=== PATIENT | male | born 1935 | race Caucasian/White ===

== ENCOUNTER 2018-01-16 03:40 | Inpatient (IN) ==
[2018-01-16] MEDS ORDERED: Morphine Inj 4 MG/ML Vial IV.PUSH ONE (04:21)
--- NOTE | 2018-01-16 04:29 | ED ---
HPI General Chief complaint: Nausea/Vomiting/Diarrhea Stated complaint: N/V Time Seen by Provider: 01/16/18 03:49 Source: patient Mode of arrival: ambulatory Limitations: no limitations History of Present Illness HPI narrative: Patient is an 82 year old male who comes in complaining of "not feeling well." He says he has abdominal pain, pain between his shoulder blades , nausea, and vomiting. He says this started earlier in the day. He denies fever or chills. He says he feels weak all over. He denies chest pain, but does report some shortness of breath. Severity is moderate. Related Data Home Medications Medication Instructions Recorded Confirmed albuterol sulfate 2.5 mg INHALATION QID PRN 08/21/17 01/16/18 carvedilol 6.25 mg PO BID 08/21/17 01/16/18 escitalopram oxalate 10 mg PO DAILY 08/21/17 01/16/18 gabapentin 300 mg PO BID 08/21/17 01/16/18 naproxen 500 mg PO BID PRN 08/21/17 01/16/18 potassium chloride 10 meq PO DAILY 08/21/17 01/16/18 tamsulosin 0.4 mg PO HS 08/21/17 01/16/18 furosemide 20 mg PO DAILY 08/25/17 01/16/18 atorvastatin 10 mg PO DAILY 01/02/18 01/16/18 isosorbide mononitrate 30 mg PO DAILY 01/02/18 01/16/18 Oxygen 2 l INHALATION HS 01/05/18 01/16/18 amlodipine 10 mg PO DAILY 01/05/18 01/16/18 clonidine-chlorthalidone 1 tab PO BID 01/05/18 01/16/18 Allergies Allergy/AdvReac Type Severity Reaction Status Date / Time No Known Allergies Allergy Verified 01/02/18 12:33 Review of Systems ROS: all other systems reviewed are negative Constitutional Denies chills and Denies fever(s) ENT Denies dizziness Cardiovascular Denies chest pain and Denies dyspnea Respiratory Denies cough and Reports dyspnea Gastrointestinal Reports abdominal pain, Reports nausea and Reports vomiting Musculoskeletal Denies myalgias and Denies arthralgias Integumentary/Breasts Denies sores and Denies wounds Neurologic Reports weakness PMFSH Medical History Medical History Bladder cancer (Acute) COPD (chronic obstructive pulmonary disease) (Acute) 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) CPAP (continuous positive airway pressure) dependence (Acute) Dehydration (Acute) Enlarged prostate (Acute) History of cardiac pacemaker in situ (Acute) Hx of cardiac arrhythmia (Acute) Kidney stone on right side (Acute) Tingling of both feet (Acute) Surgical History Surgical History Hx of bilateral cataract extraction (Acute) Hx of cervical spine surgery (Acute) Social History Social History Substance History: No History of Abuse Second Hand Smoke Exposure: No Smoking Status: Former smoker Tobacco Type: Cigarettes How Often Do You Have a Drink Containing Alcohol: Never Recent Travel in [facility] within the Last 8 Weeks: No Recent Out of Country Travel within the Last 8 Weeks: No Immunization History Tetanus Immunization: Unsure Exam Narrative Exam Narrative: GENERAL: Awake and alert, in no acute distress. SKIN: Focused skin assessment warm/dry. No wounds or signs of infection. HEAD: Atraumatic. Normocephalic. EYES: Pupils equal and round. No scleral icterus. No injection or drainage. ENT: Mucous membranes pink and moist. NECK: Trachea midline. No JVD. CARDIOVASCULAR: Regular rate and rhythm. No murmur appreciated. RESPIRATORY: No accessory muscle use. Crackles to the left lung. Breath sounds equal bilaterally. GASTROINTESTINAL: Abdomen soft, nondistended. Tender to palpation across the lower abdomen. No rebound or guarding. MUSCULOSKELETAL: No obvious deformities. No clubbing. No cyanosis. No edema. NEUROLOGICAL: Awake and alert. No obvious cranial nerve deficits. Motor grossly within normal limits. Normal speech. PSYCHIATRIC: Appropriate mood and affect; insight and judgment normal. Course Initial Documented Vital Signs Pulse Rate 72 01/16/18 03:42 Respiratory Rate 20 01/16/18 03:42 Blood Pressure 207/83 H 01/16/18 03:42 Pulse Oximetry 93 L 01/16/18 03:42 Last Documented Vital Signs Temperature 97.7 F 01/16/18 03:47 Pulse Rate 67 01/16/18 04:56 Respiratory Rate 18 01/16/18 04:56 Blood Pressure 112/53 L 01/16/18 04:56 Pulse Oximetry 94 L 01/16/18 04:56 Medical Decision Making MDM Narrative Medical decision making narrative: Patient is an 82 year old male who comes in complaining of generalized weakness with pain between his shoulder blades and to his lower abdomen. Per family he had his jenkins catheter removed earlier in the morning and he "hasn't been doing well" since then. Patient is a poor historian. Exam shows lower abdominal tenderness. IV established, labs sent. Labs concerning for slight elevation in Troponin to 0.09. WBC count is 14. Cr is 1.7. Lactic acid is 2.2. Patient given IVF. Given morphine and Zofran. UA is still pending, however, based on history, there is concern for UTI. Given Rocephin. Given Aspirin. Patient will require admission. Medical Screen Exam Complete: Yes Emergency Medical Condition: Yes Differential Diagnosis Differential Diagnosis: UTI vs sepsis vs dehydration vs electrolyte abnormalities Medical Records Medical records reviewed: Yes I reviewed the patient's medical records. Lab Data Lab results reviewed: Yes I reviewed the patient's lab results. Result diagrams: 01/16/18 04:29 01/16/18 04:29 Lab Results 01/16/18 01/16/18 01/16/18 Range/Units 04:29 04:29 04:29 WBC 14.0 H (4.0-11.0) th/mm3 RBC 4.84 (4.50-5.90) mil/mm3 Hgb 14.5 (13.0-17.0) gm/dL Hct 42.1 (39.0-51.0) % MCV 86.9 (80.0-100.0) fL MCH 29.9 (27.0-34.0) pg MCHC 34.4 (32.0-36.0) % RDW 14.1 (11.6-17.2) % Plt Count 149 L (150-450) th/mm3 MPV 8.7 (7.0-11.0) fL Prelim Diff (Auto) Manual diff required WBC Differential Manual diff final Seg Neuts % (Manual) 79 H (16-70) % Band Neuts % (Manual) 13 H (0-6) % Lymphocytes % (Manual) 1 L (9-44) % Monocytes % (Manual) 5 (0-8) % Metamyelocytes % (Man) 2 H (0-1) % Abs Neuts (Manual) 13.2 H (1.8-7.7) th/mm3 Differential Comment . Toxic Vacuolation Present H (None) Platelet Estimate Low L (Normal) Platelet Morphology Normal (Normal) RBC Morphology Normal (Normal) PT 10.8 (9.8-11.6) sec INR 1.1 Ratio APTT 30.3 (23.4-31.7) sec Sodium 140 (136-145) meq/L Potassium 3.7 (3.5-5.1) meq/L Chloride 107 (98-107) meq/L Carbon Dioxide 25.2 (21.0-32.0) meq/L Anion Gap 8 (5-15) meq/L BUN 30 H (7-18) mg/dL Creatinine 1.78 H (0.60-1.30) mg/dL Estimated GFR 37 L (>89) mL/min Random Glucose 123 H (74-106) mg/dL Lactic Acid (0.4-2.0) mmol/L Calcium 8.6 (8.5-10.1) mg/dL Magnesium 1.6 (1.5-2.5) mg/dL Total Bilirubin 1.1 H (0.2-1.0) mg/dL AST 22 (15-37) U/L ALT 21 (12-78) U/L Alkaline Phosphatase 89 (45-117) U/L Troponin I 0.09 H (0.02-0.05) ng/mL Total Protein 7.4 (6.4-8.2) g/dL Albumin 3.3 L (3.4-5.0) g/dL Lipase 56 L (73-393) U/L 01/16/18 Range/Units 04:29 WBC (4.0-11.0) th/mm3 RBC (4.50-5.90) mil/mm3 Hgb (13.0-17.0) gm/dL Hct (39.0-51.0) % MCV (80.0-100.0) fL MCH (27.0-34.0) pg MCHC (32.0-36.0) % RDW (11.6-17.2) % Plt Count (150-450) th/mm3 MPV (7.0-11.0) fL Prelim Diff (Auto) WBC Differential Seg Neuts % (Manual) (16-70) % Band Neuts % (Manual) (0-6) % Lymphocytes % (Manual) (9-44) % Monocytes % (Manual) (0-8) % Metamyelocytes % (Man) (0-1) % Abs Neuts (Manual) (1.8-7.7) th/mm3 Differential Comment Toxic Vacuolation (None) Platelet Estimate (Normal) Platelet Morphology (Normal) RBC Morphology (Normal) PT (9.8-11.6) sec INR Ratio APTT (23.4-31.7) sec Sodium (136-145) meq/L Potassium (3.5-5.1) meq/L Chloride (98-107) meq/L Carbon Dioxide (21.0-32.0) meq/L Anion Gap (5-15) meq/L BUN (7-18) mg/dL Creatinine (0.60-1.30) mg/dL Estimated GFR (>89) mL/min Random Glucose (74-106) mg/dL Lactic Acid 2.2 H (0.4-2.0) mmol/L Calcium (8.5-10.1) mg/dL Magnesium (1.5-2.5) mg/dL Total Bilirubin (0.2-1.0) mg/dL AST (15-37) U/L ALT (12-78) U/L Alkaline Phosphatase (45-117) U/L Troponin I (0.02-0.05) ng/mL Total Protein (6.4-8.2) g/dL Albumin (3.4-5.0) g/dL Lipase (73-393) U/L Imaging Data Radiologist's impression: Abdomen/Pelvis CT 01/16/18 04:21 CONCLUSION: 1. Bilateral ureteral stents are in place and there is mild distention of the collecting systems bilaterally. Both kidneys enhance heterogeneously. 2. 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 Chest X-Ray 01/16/18 04:21 CONCLUSION: Stable mildly enlarged cardiac silhouette. No acute abnormality is identified. ECG Data EKG Prior to Arrival: No Attestation: I personally reviewed and interpreted this ECG as follows: Interpretation: ECG shows NSR at a rate of 70, no ST elevation or depression, normal intervals Discharge Plan Discharge Disposition Patient Disposition: 30 Still Patient Discharge Condition Condition: Stable Discharge Details Diagnosis: Dehydration, Acute UTI, Elevated troponin Physicians Team ED Provider: Ghada Corral Primary Care Provider: Pop Escobar Rxs /Orders / Referrals /Forms Prescriptions: No Action atorvastatin 10 mg Tablet 10 mg PO DAILY RF: 0 isosorbide mononitrate 30 mg Tablet Extended Release 24 Hr 30 mg PO DAILY RF: 0 amlodipine 10 mg Tablet 10 mg PO DAILY RF: 0 clonidine-chlorthalidone 0.1-15 mg Tablet 1 tab PO BID RF: 0 Oxygen 2 l Inhalation HS RF: 0 potassium chloride 10 mEq Capsule, Extended Release 10 meq PO DAILY RF: 0 carvedilol 6.25 mg Tablet 6.25 mg PO BID RF: 0 tamsulosin 0.4 mg Capsule,Extended Release 24hr 0.4 mg PO HS RF: 0 gabapentin 300 mg Capsule 300 mg PO BID RF: 0 naproxen 500 mg Tablet 500 mg PO BID PRN (Reason: Pain) RF: 0 escitalopram oxalate 10 mg Tablet 10 mg PO DAILY RF: 0 albuterol sulfate 5 mg/mL Solution For Nebulization 2.5 mg INHALATION QID PRN (Reason: Shortness Of Breath) RF: 0 furosemide 20 mg Tablet 20 mg PO DAILY RF: 0 Discharge Interventions Interventions: Vital Signs Last Done: 01/16/18 04:56 Status ED Status: With Doctor
[2018-01-16 04:39] LABS: Hematocrit 42.1 % (39.0-51.0); Hemoglobin 14.5 gm/dL (13.0-17.0); Mean Corpuscular HGB Conc 34.4 % (32.0-36.0); Mean Corpuscular Hemoglobin 29.9 pg (27.0-34.0); Mean Corpuscular Volume 86.9 fL (80.0-100.0); Mean Platelet Volume 8.7 fL (7.0-11.0); Platelet Count 149 th/mm3 (150-450); Red Blood Count 4.84 mil/mm3 (4.50-5.90); Red Cell Distribution Width 14.1 % (11.6-17.2)
[2018-01-16 04:51] LABS: Activated Partial Thrombo Time 30.3 sec (23.4-31.7); INR 1.1 Ratio; Prothrombin Time 10.8 sec (9.8-11.6)
--- NOTE | 2018-01-16 05:01 | XR ---
EXAM DATE: 01/16/2018 4:39 AM EST AGE/SEX: 82 years / Male INDICATIONS: Cough. CLINICAL DATA: This is the patient's initial encounter. Patient reports that signs and symptoms have been present for 1 day and indicates a pain score of 0/10. MEDICAL/SURGICAL HISTORY: Chronic obstructive pulmonary disease. Emphysema. Hypertension. Cho lecystectomy. Pacemaker. Cervical fusion. COMPARISON: [facility], CHEST PA & LAT, 12/30/2012. . FINDINGS: Portable AP view of the chest demonstrates stable mild enlargement of the cardiac silhouette. Left ch est wall cardiac pacing device is present. EKG lines overlie the patient. Lungs are underinflated wit h mild atelectasis at the lung bases. No pleural effusion, airspace consolidation, or pneumothorax is identified. The bones and soft tissues demonstrate no acute finding. Cervical spine hardware is pres ent. CONCLUSION: Stable mildly enlarged cardiac silhouette. No acute abnormality is identified. Electronically signed by: Rony White MD 01/16/2018 4:59 AM EST
[2018-01-16 05:03] LABS: Albumin 3.3 g/dL (3.4-5.0); Anion Gap 8 meq/L (5-15); Aspartate Aminotransferase 22 U/L (15-37); Blood Urea Nitrogen 30 mg/dL (7-18); Calcium 8.6 mg/dL (8.5-10.1); Carbon Dioxide 25.2 meq/L (21.0-32.0); Chloride 107 meq/L (98-107); Glomerular Filtration Rate 37 mL/min (>89); Glucose,Random 123 mg/dL (74-106); Lipase 56 U/L (73-393); Magnesium 1.6 mg/dL (1.5-2.5); Potassium 3.7 meq/L (3.5-5.1); Sodium 140 meq/L (136-145)
[2018-01-16 05:04] LABS: Alanine Aminotransferase 21 U/L (12-78)
[2018-01-16 05:08] LABS: Alkaline Phosphatase 89 U/L (45-117); Total Protein 7.4 g/dL (6.4-8.2); Troponin I 0.09 ng/mL (0.02-0.05)
[2018-01-16 05:22] LABS: Lymphocytes 1 % (9-44); Metamyelocytes 2 % (0-1); Monocytes 5 % (0-8)
[2018-01-16 05:24] LABS: Platelet Morphology Normal (Normal); Toxic Vacuolation Present
[2018-01-16 05:25] LABS: RBC Morphology Normal (Normal)
[2018-01-16] MEDS ORDERED: Sodium Chlor 0.9% Inj 500 ML IV.SIG SCH (06:00)
--- NOTE | 2018-01-16 06:09 | CT ---
EXAM DATE: 01/16/2018 5:39 AM EST AGE/SEX: 82 years / Male INDICATIONS: Abdominal pain, nausea, and vomiting. CLINICAL DATA: This is the patient's initial encounter. Patient reports that signs and symptoms have been present for 1 day and indicates a pain score of 7/10. MEDICAL/SURGICAL HISTORY: Carcinoma, breast. Chronic obstructive pulmonary disease. Renal lisa culi. Pacemaker. ORAL CONTRAST: No oral contrast ingested. RADIATION DOSE: 9.36 CTDI (mGy) COMPARISON: No prior exams available for comparison. TECHNIQUE: Multiple contiguous axial images were obtained through the abdomen and pelvis following b olus infusion of 45 ml Visipaque 320 (iodixanol) nonionic water-soluble contrast as a single exam d ose. No oral contrast ingested. Using automated exposure control and adjustment of the mA and/or kV according to patient size, radiation dose was kept as low as reasonably achievable to obtain optimal diagnostic quality images. DICOM format image data is available electronically for review and compar jacinta. FINDINGS: Lower chest: There are subpleural interstitial changes at both lung bases. Cardiac pacing wires are p resent within the heart. Hepatobiliary: No focal liver lesion is identified. Hepatic vasculature demonstrates no abnormality. No calcified gallstones are present. Kidneys: The kidneys enhance heterogeneously. In the right mid kidney there is a 3.3 cm low-density l esion with density measurements consistent with a cyst. There is fullness of the collecting systems b ilaterally and distended extrarenal pelves. There are bilateral ureteral stents extending from the ex trarenal pelvis to the urinary bladder bilaterally. No renal stones are identified. Adrenal Glands: Within normal limits. Spleen: Within normal limits. Pancreas: Within normal limits. Vascular: There is severe atherosclerotic disease with infrarenal fusiform bilobed aneurysm measuring approximately 4.8 x 4.2 cm. Bowel/Mesentery: The stomach and small bowel demonstrate no abnormality. No acute colon abnormality i s seen. There is no free intraperitoneal air or fluid. There is sigmoid diverticulosis. Abdominal Wall: No hernia is visualized. Retroperitoneum: No lymphadenopathy. Bladder: No wall thickening or mass. Reproductive: Within normal limits. Inguinal: No lymphadenopathy or hernia. Musculoskeletal: No acute osseous abnormality is identified. There are degenerative changes of the rosemary mbar spine. CONCLUSION: 1. Bilateral ureteral stents are in place and there is mild distention of the collecting systems wendi aterally. Both kidneys enhance heterogeneously. 2. 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 2 cm. Electronically signed by: Rony White MD 01/16/2018 6:08 AM EST
[2018-01-16 06:50] LABS: Amorphous Sediment,Urine Rare /hpf; Bacteria,Urine Many /hpf; Bilirubin,Urine Negative (Negative); Clarity,Urine Cloudy (Clear); Color,Urine Amber (Yellw/Straw); Glucose,Urine (UA) Negative (Negative); Hyaline Casts,Urine 12 /lpf (0-3); Leukocyte Esterase,Urine Large (Negative); Mucus,Urine Few /lpf (Occasional); Nitrite,Urine Negative (Negative); Specific Gravity,Urine 1.021 (1.002-1.035)
[2018-01-16] MEDS ORDERED: Bisacodyl 10 MG Supp RECTAL PRN (08:02)
--- NOTE | 2018-01-16 08:25 | P.HPIM ---
History of Present Illness Primary Care Physician: Pop Escboar MD History of Present Illness: Mr. Cheung is a pleasant 82 y/o male with bladder cancer who recently underwent meatal dilation/bilateral retrograde pyelograms/bladder biopsy with fulguration/bilateral ureteroscopy with laser ablation of distal ureteral masses/right ureteroscopic stone extraction and bilateral ureteral stent placement with Dr. Feliciano on 01/05/18. Pts reports that he had his Talbot catheter removed at Dr. Feliciano's office yesterday. She states that the pt has not been eating or drinking well over the last few weeks and has been somewhat weaker than normal. Then yesterday after the Talbot was removed the pt had difficulty urinating and last night started becoming more nauseated and started vomiting during the night last night. Pt denies any fevers or chills. He appears uncomfortable in the bed and reports some mid to lower abdominal pain. He states that he needs to pee but only small amount of urine has been coming out since the catheter was removed. Denies any back pain. He states that he has not been having regular bowel movements more recently but felt that this was due to his appetite being poor and not eating as much as he used to. Denies any constipation or diarrhea. He denies any chest pain, SOB, palpitations, dizziness or weakness. His labs in the ED revealed a WBC count of 14, Cr 1.78, BUN 30, GFR 37. This seems to be worse than his baseline renal function when outpt labs were reviewed. 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 Past Medical Hx: AAA Thoracic aortic aneurysm Anxiety Bronchiectasis/Restrictive lung disease/COPD, chronically on 2L of supplemental O2 CHF Hyperlipidemia HTN Malignant neoplasm of the bladder JAVIER Osteoarthritis Hx of vertigo Hx of SSS s/p PPM Hx of skin cancer 2D echo (07/24/17): - LV mildly dilated - Mild concentric LVH - Estimated EF 45-50% - Abnormal left ventricular diastolic function is observed - LA is mildly dilated - Mild to moderate aortic regurg - Mild mitral regurg - Mild tricuspid regurg - RVSP is 42mmHg Past Surgical Hx: Multiple cystoscopies - Most recent, on 01/05/18, meatal dilation, bilateral retrograde pyelograms , bladder biopsy with fulguration, bilateral ureteroscopy with laser ablation of distal ureteral masses, right ureteroscopic stone extraction and bilateral ureteral stent placement with Dr. Feliciano. - Cystoscopy and transurethral resection of bladder tumors measuring 2 cm and 6 cm respectively on 08/25/[address] Feliciano. PATHOLOGY: NON-INVASIVE LOW GRADE PAPILLARY UROTHELIAL CARCINOMA Laminectomy PPM placement Colonoscopy Skin cancer removal Diagnosis (1) Acute UTI: (2) Elevated troponin: (3) Dehydration: (4) History of bladder cancer: (5) Meatal stenosis: Inpatient Certification Inpatient Certification: I certify that the inpatient services were ordered in accordance with Medicare regulations governing the order. This includes certification that hospital inpatient services are reasonable and necessary and in the case of services not specified as inpatient-only under 42 CFR 419.22(n), that they are appropriately provided as inpatient services in accordance to with the 2-midnight benchmark under 43 CFR 412.3(e) Estimated Total Length of Stay (Days): 3 Plans for Post Hospital Care: Not yet determined Medications and Allergies Allergies Allergy/AdvReac Type Severity Reaction Status Date / Time No Known Allergies Allergy Verified 01/02/18 12:33 Home Medications Medication Instructions Recorded Confirmed Type albuterol sulfate 2.5 mg INHALATION QID PRN 08/21/17 01/16/18 History carvedilol 6.25 mg PO BID 08/21/17 01/16/18 History escitalopram oxalate 10 mg PO DAILY 08/21/17 01/16/18 History gabapentin 300 mg PO BID 08/21/17 01/16/18 History naproxen 500 mg PO BID PRN 08/21/17 01/16/18 History potassium chloride 10 meq PO DAILY 08/21/17 01/16/18 History tamsulosin 0.4 mg PO HS 08/21/17 01/16/18 History furosemide 20 mg PO DAILY 08/25/17 01/16/18 History atorvastatin 10 mg PO DAILY 01/02/18 01/16/18 History isosorbide mononitrate 30 mg PO DAILY 01/02/18 01/16/18 History Oxygen 2 l INHALATION HS 01/05/18 01/16/18 History amlodipine 10 mg PO DAILY 01/05/18 01/16/18 History clonidine-chlorthalidone 1 tab PO BID 01/05/18 01/16/18 History Active Medications: Active Medications Acetaminophen (Tylenol) 650 mg PO Q4H PRN PRN Reason: Temp > 100.4 Al Hydroxide/Mg Hydroxide (Milk Of Magnesia Liq) 30 ml PO Q12H PRN PRN Reason: Mild Constipation Amlodipine Besylate (Norvasc) 10 mg PO DAILY [facility] Atorvastatin Calcium (Lipitor) 10 mg PO DAILY [facility]NA Bisacodyl (Dulcolax Supp) 10 mg RECTAL DAILY PRN PRN Reason: SEVERE CONSITIPATION Carvedilol (Coreg) 6.25 mg PO BID [facility] Escitalopram Oxalate (Lexapro) 10 mg PO DAILY [facility] Gabapentin (Neurontin) 300 mg PO BID [facility] Sodium Chloride (Ns Inj) 1,000 mls @ 100 mls/hr IV.CONT .Q10H [facility] Isosorbide Mononitrate (Imdur) 30 mg PO DAILY [facility] Lactulose (Lactulose Liq) 30 ml PO DAILY PRN PRN Reason: SEVERE CONSITIPATION Ondansetron HCl (Zofran Inj) 4 mg IV.PUSH Q6H PRN PRN Reason: NAUSEA OR VOMITING Senna/Docusate Sodium (Bel-Colace) 1 tab PO BID [facility] Sennosides (Senokot) 17.2 mg PO Q12H PRN PRN Reason: Moderate Constipation Sodium Chloride (Ns Flush) 2 ml IV.FLUSH PRN PRN PRN Reason: FLUSH AFTER USING IV ACCESS Sodium Chloride (Ns Flush) 2 ml IV.FLUSH BID BRIANNA Sodium Chloride (Ns Flush) 2 ml IV.FLUSH PRN PRN PRN Reason: FLUSH AFTER USING IV ACCESS Tamsulosin HCl (Flomax) 0.4 mg PO HS [facility] Physical Exam Vital signs: Last Vital Signs Temp 97.8 F 01/16/18 07:20 Pulse 64 01/16/18 07:20 Resp 17 01/16/18 07:38 BP 142/64 H 01/16/18 07:20 Pulse Ox 98 01/16/18 07:20 Narrative: GENERAL: male patient, AAOx3, appears to be uncomfortable SKIN: Warm and dry. HEENT: Atraumatic. Normocephalic. Pupils equal and round. No scleral icterus. No injection or drainage. No nasal bleeding or discharge. Mucous membranes pink and moist. NECK: Trachea midline. No JVD. CARDIO: Regular rate and rhythm. RESP: No accessory muscle use. Clear to auscultation. Breath sounds equal bilaterally. ABD: +BS, soft, non-tender, nondistended. Hepatic and splenic margins not palpable. EXT: Extremities without clubbing, cyanosis, or edema. No obvious deformities. NEURO: Awake and alert. No obvious cranial nerve deficits. Motor grossly within normal limits. Five out of 5 muscle strength in the arms and legs. Normal speech. PSYCH: Appropriate mood and affect; insight and judgment normal. Results Labs CBC & Chem 7: 01/31/18 08:14 02/01/18 05:13 Imaging Abdomen/Pelvis CT 01/16/18 04:21 CONCLUSION: 1. Bilateral ureteral stents are in place and there is mild distention of the collecting systems bilaterally. Both kidneys enhance heterogeneously. 2. 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 Chest X-Ray 01/16/18 04:21 CONCLUSION: Stable mildly enlarged cardiac silhouette. No acute abnormality is identified. Caprini VTE Risk Assessment Caprini VTE Risk Assessment: Moderate/High Risk (score >= 2) Caprini Risk Assessment Model: Point Value = 1 Point Value = 2 Point Value = 3 Point Value = 5 Age 41-60 Minor surgery BMI > 25 kg/m2 Swollen legs Varicose veins or History of unexplained or recurrent spontaneous Oral contraceptives or hormone replacement Sepsis (< 1 month) Serious lung disease, including pneumonia (< 1 month) Abnormal pulmonary function Acute myocardial infarction Congestive heart failure (< 1 month) History of inflammatory bowel disease Medical patient at bed rest Age 61-74 Arthroscopic surgery Major open surgery (> 45 min) Laparoscopic surgery (> 45 min) Malignancy Confined to bed (> 72 hours) Immobilizing plaster cast Central venous access Age >= 75 History of VTE Family history of VTE Factor V Leiden Prothrombin [id number] Lupus anticoagulant Anticardiolipin antibodies Elevated serum homocysteine Heparin-induced thrombocytopenia Other congenital or acquired thrombophilia Stroke (< 1 month) Elective arthroplasty Hip, pelvis, or leg fracture Acute spinal cord injury (< 1 month) Prophylaxis Regimen: Total Risk Factor Score Risk Level Prophylaxis Regimen 0-1 Low Early ambulation 2 Moderate Order ONE of the following: *Sequential Compression Device (SCD) *Heparin 5000 units SQ BID 3-4 Higher Order ONE of the following medications: *Heparin 5000 units SQ TID *Enoxaparin/Lovenox 40 mg SQ daily (WT < 150 kg, CrCl > 30 mL/min) *Enoxaparin/Lovenox 30 mg SQ daily (WT < 150 kg, CrCl > 10-29 mL/min) *Enoxaparin/Lovenox 30 mg SQ BID (WT < 150 kg, CrCl > 30 mL/min) AND/OR *Sequential Compression Device (SCD) 5 or more Highest Order ONE of the following medications: *Heparin 5000 units SQ TID (Preferred with Epidurals) *Enoxaparin/Lovenox 40 mg SQ daily (WT < 150 kg, CrCl > 30 mL/min) *Enoxaparin/Lovenox 30 mg SQ daily (WT < 150 kg, CrCl > 10-29 mL/min) *Enoxaparin/Lovenox 30 mg SQ BID (WT < 150 kg, CrCl > 30 mL/min) AND *Sequential Compression Device (SCD) Assessment and Plan Assessment (1) Acute UTI: Code(s): N39.0 - Urinary tract infection, site not specified Status: Acute (2) Elevated troponin: Code(s): R74.8 - Abnormal levels of other serum enzymes Status: Acute (3) Dehydration: Code(s): E86.0 - Dehydration Status: Acute (4) History of bladder cancer: Code(s): Z85.51 - Personal history of malignant neoplasm of bladder Status: Acute (5) Meatal stenosis: Status: Acute Plan UTI BECK on chronic kidney disease Dehydration - Pt is an 82 y/o male with bladder cancer who recently underwent meatal dilation/bilateral retrograde pyelograms/bladder biopsy with fulguration/ bilateral ureteroscopy with laser ablation of distal ureteral masses/right ureteroscopic stone extraction and bilateral ureteral stent placement with Dr. Feliciano on 01/05/18. Pts reports that he had his Talbot catheter removed at Dr. Feliciano's office yesterday. She states that the pt has not been eating or drinking well over the last few weeks and has been somewhat weaker than normal. Then yesterday after the Talbot was removed the pt had difficulty urinating and last night started becoming more nauseated and started vomiting during the night last night. Pts reports that he had similar issues in August 2017 after a previous urological procedure after Talbot removal but was not this bad and was treated for a UTI at that time. - His labs in the ED revealed a WBC count of 14, Cr 1.78, BUN 30, GFR 37. This seems to be worse than his baseline renal function when outpt labs were reviewed. 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 - Pt was given 1L bolus of IVF in the ED - Will give 1 more liter of NS at 100mL/hr but monitor closely for any signs of volume overload - Clear liquid diet for now and advance diet as tolerated to heart healthy diet. - Consult placed to Dr. Feliciano - Bladder scan now, pt may need Talbot placed - Pt was given a dose of Rocephin in the ED and we will continue this - Await Urine culture results - Cont. Flomax 0.4mg HS - PT evaluation - Supportive care - Monitor labs Elevated troponin, etiology unclear - No reports of chest pain. - Pts labs also indicated an elevated troponin I 0.09 in the ED. - Get repeat troponins Hx of CHF, currently compensated - Last echo reviewed, pt with some noted systolic and diastolic dysfunction. - Cont. home meds, including, Norvasc 10mg daily, Coreg 6.25mg BID, Imdur 30mg daily - Hold Lasix and potassium for now with BECK but this will need to be resumed to avoid volume overload once renal function improves. COPD Restrictive lung disease JAVIER - Pt is chronically on 2L of supplemental O2 - Duonebs PRN - Pt has not been using his CPAP at home in the last few months per his , due to it not fitting comfortably. He will need to followup with his [facility] for adjustment for this. Attending Attestation The exam, history, and the medical decision-making described in the above note were completed with the assistance of the mid-level provider. I reviewed and agree with the findings presented. I attest that I had a [id number] encounter with the patient on the same day, and personally performed and documented my assessment and findings in the medical record. Patient examined. Assessment and plan formulated with Mariana Barron PA-C. I agree with the above.
[2018-01-16] MEDS ORDERED: Sod Chloride 0.9% Inj 1,000 ML IV.CONT SCH (08:30)
[2018-01-16] MEDS ORDERED: Isosorbide Mononitrate 30 MG ER 24HR Tablet (Imdur) PO SCH (09:00)
[2018-01-16] MEDS ORDERED: amLODIPine 10 MG Tablet PO SCH (09:00)
[2018-01-16] MEDS ORDERED: Escitalopram 10 MG Tablet PO SCH (09:00)
[2018-01-16] MEDS ORDERED: Gabapentin 300 MG Capsule PO SCH (09:00)
[2018-01-16 09:18] LABS: Troponin I 0.13 ng/mL (0.02-0.05)
[2018-01-16] MEDS: Carvedilol 6.25 MG Tablet PO SCH (09:18)
[2018-01-16] MEDS: Senna/Docusate Sodium 8.6/50 MG Tablet PO SCH ×2 (09:19→21:49)
--- NOTE | 2018-01-16 11:13 | P.CONURO ---
History of Present Illness Service: Consult date: 01/16/18 Requesting Physician: Kolby Thomson Reason for Consult: UTI Primary Care Provider: Pop Escobar MD History of Present Illness: 82-year-old gentleman with multiple medical problems as well as having a history of bladder cancer who is status post recent cystoscopy with meatal dilation 4 days ago. 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 Patient underwent laser ablation of the tumor masses with biopsy along with laser lithotripsy and extraction of the right ureteral calculus. Bilateral stents were placed. Patient also was sent home with an indwelling Prince catheter which was to be removed sometime next week at my office. Patient presented to the emergency room early this morning with generalized malaise, abdominal pain and pain between the shoulder blades. Pulmonary workup included a CT scan that demonstrated no significant hydronephrosis with proper positioning of the bilateral stents. The bladder was also unremarkable. There was mild elevation of the white blood cell count and urinalysis was consistent with a urinary tract infection. Patient had his Prince catheter removed and was started on intravenous antibiotics. A urology consult is now placed for further recommendations. At the time of consultation , the patient did not appear to be in any acute distress however he appeared somewhat confused. Upon entering the room the nurse was completing a bladder scan with a residual urine of only 22 cc. Review of Systems All other systems reviewed negative except as stated in HPI PMFSH - History History Provided By: Patient - Medical History Medical History: Medical History (Last Reviewed 01/16/18 @ 04:34 by Ghada Corral MD) Bladder cancer COPD (chronic obstructive pulmonary disease) COPD (chronic obstructive pulmonary disease) with emphysema CPAP (continuous positive airway pressure) dependence Dehydration Enlarged prostate History of cardiac pacemaker in situ Hx of cardiac arrhythmia Kidney stone on right side Tingling of both feet - Surgical History Surgical History: Surgical History (Last Reviewed 01/16/18 @ 04:34 by Ghada Corral MD) Hx of bilateral cataract extraction Hx of cervical spine surgery - Tobacco History Second Hand Smoke Exposure: No Tobacco Use In Past 30 Days: No Smoking Status: Former smoker Tobacco Type: Cigarettes - Alcohol History How Often Do You Have a Drink Containing Alcohol: Never - Substance Use History Substance History: No History of Abuse - Travel History Recent Travel in the [place] Within the Last 8 Weeks: No Recent Travel Out of the Country Within the Last 8 Weeks: No - Immunization History Tetanus Immunization: Unsure Medications and Allergies Active Medications: Active Medications Acetaminophen (Tylenol) 650 mg PO Q4H PRN PRN Reason: Temp > 100.4 Al Hydroxide/Mg Hydroxide (Milk Of Magnesia Liq) 30 ml PO Q12H PRN PRN Reason: Mild Constipation Amlodipine Besylate (Norvasc) 10 mg PO DAILY [facility] Last Admin: 01/16/18 09:19 Dose: 10 mg Atorvastatin Calcium (Lipitor) 10 mg PO DAILY [facility] Last Admin: 01/16/18 09:18 Dose: 10 mg Bisacodyl (Dulcolax Supp) 10 mg RECTAL DAILY PRN PRN Reason: SEVERE CONSITIPATION Carvedilol (Coreg) 6.25 mg PO BID [facility] Last Admin: 01/16/18 09:18 Dose: 6.25 mg Escitalopram Oxalate (Lexapro) 10 mg PO DAILY [facility] Last Admin: 01/16/18 09:18 Dose: 10 mg Gabapentin (Neurontin) 300 mg PO BID [facility] Last Admin: 01/16/18 09:19 Dose: 300 mg Sodium Chloride (Ns Inj) 1,000 mls @ 100 mls/hr IV.CONT .Q10H [facility] Stop: 01/16/18 18:29 Last Admin: 01/16/18 08:25 Dose: 100 mls/hr Isosorbide Mononitrate (Imdur) 30 mg PO DAILY [facility] Last Admin: 01/16/18 09:18 Dose: 30 mg Lactulose (Lactulose Liq) 30 ml PO DAILY PRN PRN Reason: SEVERE CONSITIPATION Ondansetron HCl (Zofran Inj) 4 mg IV.PUSH Q6H PRN PRN Reason: NAUSEA OR VOMITING Senna/Docusate Sodium (Bel-Colace) 1 tab PO BID [facility] Last Admin: 01/16/18 09:19 Dose: 1 tab Sennosides (Senokot) 17.2 mg PO Q12H PRN PRN Reason: Moderate Constipation Sodium Chloride (Ns Flush) 2 ml IV.FLUSH BID [facility] Last Admin: 01/16/18 09:19 Dose: Not Given Sodium Chloride (Ns Flush) 2 ml IV.FLUSH PRN PRN PRN Reason: FLUSH AFTER USING IV ACCESS Tamsulosin HCl (Flomax) 0.4 mg PO HS [facility] Allergies Allergy/AdvReac Type Severity Reaction Status Date / Time No Known Allergies Allergy Verified 01/02/18 12:33 Home Medications Medication Instructions Recorded Confirmed Type albuterol sulfate 2.5 mg INHALATION QID PRN 08/21/17 01/16/18 History carvedilol 6.25 mg PO BID 08/21/17 01/16/18 History escitalopram oxalate 10 mg PO DAILY 08/21/17 01/16/18 History gabapentin 300 mg PO BID 08/21/17 01/16/18 History naproxen 500 mg PO BID PRN 08/21/17 01/16/18 History potassium chloride 10 meq PO DAILY 08/21/17 01/16/18 History tamsulosin 0.4 mg PO HS 08/21/17 01/16/18 History furosemide 20 mg PO DAILY 08/25/17 01/16/18 History atorvastatin 10 mg PO DAILY 01/02/18 01/16/18 History isosorbide mononitrate 30 mg PO DAILY 01/02/18 01/16/18 History Oxygen 2 l INHALATION HS 01/05/18 01/16/18 History amlodipine 10 mg PO DAILY 01/05/18 01/16/18 History clonidine-chlorthalidone 1 tab PO BID 01/05/18 01/16/18 History Physical Exam Vital Signs - 24 hr 01/16/18 03:42 01/16/18 03:47 01/16/18 04:56 Temperature 97.7 F Pulse Rate 72 72 67 Respiratory Rate 20 18 18 Blood Pressure 207/83 H 174/73 H 112/53 L Pulse Oximetry 93 L 94 L 94 L 01/16/18 07:20 01/16/18 07:38 01/16/18 08:02 Temperature 97.8 F 98 F Pulse Rate 64 65 Respiratory Rate 17 17 18 Blood Pressure 142/64 H 133/60 Pulse Oximetry 98 97 01/16/18 08:20 Temperature 98 F Pulse Rate 65 Respiratory Rate 18 Blood Pressure 133/60 Pulse Oximetry 97 Physical Exam: GENERAL: This is a well-nourished, well-developed patient, in no apparent distress. SKIN: No rashes, ecchymoses or lesions. Cool and dry. HEAD: Atraumatic. Normocephalic. No temporal or scalp tenderness. EYES: Pupils equal round and reactive. Extraocular motions intact. No scleral icterus. No injection or drainage. ENT: Nose without bleeding, purulent drainage or septal hematoma. Throat without erythema, tonsillar hypertrophy or exudate. Uvula midline. Airway patent. NECK: Trachea midline. No JVD or lymphadenopathy. Supple, nontender, no meningeal signs. GASTROINTESTINAL: Abdomen soft, non-tender, nondistended. No hepato-splenomegaly , or palpable masses. No guarding. GENITOURINARY: No CVA tenderness, bladder not distended MUSCULOSKELETAL: Extremities without clubbing, cyanosis, or edema. No joint tenderness, effusion, or edema noted. No calf tenderness. Negative Homans sign bilaterally. NEUROLOGICAL: Appeared somewhat confused. Motor and sensory grossly within normal limits. Five out of 5 muscle strength in all muscle groups. Normal speech. Laboratory Results - last 24 hr 01/16/18 01/16/18 01/16/18 04:29 04:29 04:29 WBC 14.0 H RBC 4.84 Hgb 14.5 Hct 42.1 MCV 86.9 MCH 29.9 MCHC 34.4 RDW 14.1 Plt Count 149 L MPV 8.7 Prelim Diff (Auto) Manual diff required WBC Differential Manual diff final Seg Neuts % (Manual) 79 H Band Neuts % (Manual) 13 H Lymphocytes % (Manual) 1 L Monocytes % (Manual) 5 Metamyelocytes % (Man) 2 H Abs Neuts (Manual) 13.2 H Differential Comment . Toxic Vacuolation Present H Platelet Estimate Low L Platelet Morphology Normal RBC Morphology Normal PT 10.8 INR 1.1 APTT 30.3 Sodium 140 Potassium 3.7 Chloride 107 Carbon Dioxide 25.2 Anion Gap 8 BUN 30 H Creatinine 1.78 H Estimated GFR 37 L Random Glucose 123 H Lactic Acid Calcium 8.6 Magnesium 1.6 Total Bilirubin 1.1 H AST 22 ALT 21 Alkaline Phosphatase 89 Total Creatine Kinase Troponin I 0.09 H Total Protein 7.4 Albumin 3.3 L Lipase 56 L Urine Color Urine Clarity Urine pH Ur Specific [place] Urine Protein Urine Glucose (UA) Urine Ketones Urine Occult Blood Urine Nitrate Urine Bilirubin Urine Urobilinogen Ur Leukocyte Esterase Urine RBC Urine WBC Amorphous Sediment Urine Bacteria Hyaline Casts Urine Mucus Micro UA Comment Ur Microscopic Review Urine Culture Comments 01/16/18 01/16/18 01/16/18 04:29 06:28 07:30 WBC RBC Hgb Hct MCV MCH MCHC RDW Plt Count MPV Prelim Diff (Auto) WBC Differential Seg Neuts % (Manual) Band Neuts % (Manual) Lymphocytes % (Manual) Monocytes % (Manual) Metamyelocytes % (Man) Abs Neuts (Manual) Differential Comment Toxic Vacuolation Platelet Estimate Platelet Morphology RBC Morphology PT INR APTT Sodium Potassium Chloride Carbon Dioxide Anion Gap BUN Creatinine Estimated GFR Random Glucose Lactic Acid 2.2 H 2.2 H Calcium Magnesium Total Bilirubin AST ALT Alkaline Phosphatase Total Creatine Kinase Troponin I Total Protein Albumin Lipase Urine Color [place] Urine Clarity Cloudy H Urine pH 5.0 Ur Specific [place] 1.021 Urine Protein 100 H Urine Glucose (UA) Negative Urine Ketones Negative Urine Occult Blood Large H Urine Nitrate Negative Urine Bilirubin Negative Urine Urobilinogen 2.0 H Ur Leukocyte Esterase Large H Urine RBC Urine WBC Amorphous Sediment Rare H Urine Bacteria Many H Hyaline Casts 12 Urine Mucus Few H Micro UA Comment Cath-culture ind Ur Microscopic Review Not Reportable Urine Culture Comments Cath-cult indicated 01/16/18 08:20 WBC RBC Hgb Hct MCV MCH MCHC RDW Plt Count MPV Prelim Diff (Auto) WBC Differential Seg Neuts % (Manual) Band Neuts % (Manual) Lymphocytes % (Manual) Monocytes % (Manual) Metamyelocytes % (Man) Abs Neuts (Manual) Differential Comment Toxic Vacuolation Platelet Estimate Platelet Morphology RBC Morphology PT INR APTT Sodium Potassium Chloride Carbon Dioxide Anion Gap BUN Creatinine Estimated GFR Random Glucose Lactic Acid Calcium Magnesium Total Bilirubin AST ALT Alkaline Phosphatase Total Creatine Kinase 68 Troponin I 0.13 H Total Protein Albumin Lipase Urine Color Urine Clarity Urine pH Ur Specific [place] Urine Protein Urine Glucose (UA) Urine Ketones Urine Occult Blood Urine Nitrate Urine Bilirubin Urine Urobilinogen Ur Leukocyte Esterase Urine RBC Urine WBC Amorphous Sediment Urine Bacteria Hyaline Casts Urine Mucus Micro UA Comment Ur Microscopic Review Urine Culture Comments Result Diagrams: 01/16/18 04:29 01/16/18 04:29 Imaging: ITS Impressions Abdomen/Pelvis CT 01/16/18 04:21 CONCLUSION: 1. Bilateral ureteral stents are in place and there is mild distention of the collecting systems bilaterally. Both kidneys enhance heterogeneously. 2. 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 Chest X-Ray 01/16/18 04:21 CONCLUSION: Stable mildly enlarged cardiac silhouette. No acute abnormality is identified. Assessment and Plan - Plan Urologic impression: 1. History of bladder cancer 2. History meatal stenosis 3. 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 4. Status post right ureteroscopy with laser lithotripsy of distal ureteral calculus 5. Status post bilateral ureteral stent placement 6. Urinary tract infection Recommendations: 1. Agree with present antibiotic therapy for urinary tract infection 2. Replace Prince if patient unable to void 3. Follow-up on urine culture 4. Discharge home when medically stable with office follow-up as previously arranged 5. Nothing further to add at this time
[2018-01-16 15:10] LABS: ABG Base Excess -5.1 mmol/L (-2-2); ABG PCO2 50 mmHg (38-42); ABG PO2 114 mmHg (61-120)
[2018-01-16] MEDS ORDERED: Vancomycin Inj 1,000 MG in Sodium Chlor 0.9% Inj 250 ML IV.SIG ONE (15:30)
--- NOTE | 2018-01-16 15:32 | ECG ---
Date Performed: 01/16/2018 Time Performed: 03:45:05 PTAGE: 82 years EKG: Sinus rhythm When compared to previous tracing, ventricular ectopy has Diminished, and atrial pacing is no longer seen. ATYPICAL ECG PREVIOUS TRACING : 01/05/2018 11.38.32 DOCTOR: Jose Swain Interpretating Date/Time 01/16/2018 15:30:59
[2018-01-16] MEDS ORDERED: Sod Chloride 0.9% Inj 2,000 ML IV.SIG ONE (16:00)
[2018-01-16] MEDS ORDERED: Piperacil/Tazo 3.375 GM Premix 50 ML IV.SIG ONE (16:00)
[2018-01-16 16:07] LABS: Baso % (Auto) 0.1 % (0.0-2.0); Hematocrit 36.9 % (39.0-51.0); Hemoglobin 12.4 gm/dL (13.0-17.0); Lymph # (Auto) 0.6 th/mm3 (1.0-4.8); Lymph % (Auto) 3.1 % (9.0-44.0); Mean Corpuscular HGB Conc 33.5 % (32.0-36.0); Mean Corpuscular Hemoglobin 30.3 pg (27.0-34.0); Mean Corpuscular Volume 90.3 fL (80.0-100.0); Mean Platelet Volume 8.9 fL (7.0-11.0); Mono # (Auto) 1.1 th/mm3 (0.0-0.9); Mono % (Auto) 5.6 % (0.0-8.0); Neut # (Auto) 18.7 th/mm3 (1.8-7.7); Neut % (Auto) 91.2 % (16.0-70.0); Platelet Count 134 th/mm3 (150-450); Red Blood Count 4.09 mil/mm3 (4.50-5.90); Red Cell Distribution Width 14.5 % (11.6-17.2); White Blood Count 20.4 th/mm3 (4.0-11.0)
--- NOTE | 2018-01-16 16:10 | XR ---
EXAM DATE: 01/16/2018 4:07 PM EST AGE/SEX: 82 years / Male INDICATIONS: Respiratory distress. CLINICAL DATA: This is the patient's subsequent encounter. Patient reports that signs and symptoms h ave been present for 2 days and indicates a pain score of Nonresponsive. MEDICAL/SURGICAL HISTORY: . Chronic obstructive pulmonary disease. Emphysema. Hypertension. . Cholecystectomy. Pacemaker. Cervical fusion COMPARISON: [facility] – [place], [place]ST 1V SINGLE AP, 01/16/2018. . FINDINGS: The heart size is enlarged. There is a pacing device seen in the left chest. The lungs demonstrate di ffuse increased interstitial markings. There is some hazy density at the right base which may represe nt some degree of basilar atelectasis or consolidation or minimal right effusion. There is an anterio r cervical fusion plate present. CONCLUSION: Cardiomegaly with prominence of the interstitial markings likely related to mild edema. Electronically signed by: Rony Donato MD 01/16/2018 4:08 PM EST
--- NOTE | 2018-01-16 16:26 | P.CONCC ---
History of Present Illness Service: T Consult date: 01/16/18 Requesting Physician: Kolby Thomson Reason for Consult: Septic shock, Encephalopathy Primary Care Provider: Pop Escobar MD Chief Complaint: AMS, septic shock History of Present Illness: Mr. Cheung is a 82-year-old male with bladder cancer, thoracic and abdominal aortic aneurysm, Bronchiectasis, Restrictive lung disease, COPD, on 2L of supplemental O2, history of congestive heart failure, Hyperlipidemia, HTN who recently underwent recent cystoscopy with meatal dilation about 4 days ago. According to Dr. 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 He underwent laser ablation of the tumor masses with biopsy along with laser lithotripsy and extraction of the right ureteral calculus. Bilateral stents were placed. Patient came to the ER today with symptoms of UTI and sepsis, altered mental status. UA showed evidence of UTI. Patient was started on Rocephin and admitted to hospitalist service. Over the course of the day patient clinically started deteriorating hypotensive with worsening encephalopathy hardly responsive. Patient was transferred to the ICU and critical care medicine was consulted. I evaluated the patient in the ICU he is very lethargic encephalopathy. Currently received 2 L normal saline bolus and had been started on Levophed currently at 12 mcg/min. Despite this patient is hypotensive. Initial ABG showed a pH of 7.25 PCO2 50 base excess -5 now slightly worse with pH of 7.23 PCO2 52. Due to severe sepsis and metabolic acidosis patient is not a candidate for BiPAP. WBC count of on admission was 14 with left shift now has worsened to 20.4. Initial lactic acid was 2,2 repeat lactic acid is pending at this time. Patient previously was sent home with indwelling Prince by Dr. Cabrera , he removed the Prince today. Patient has been oliguric and in renal failure. Will replace the Prince for strict hourly intake output Review of Systems unobtainable due to mental condition PMFSH - History History Provided By: Patient - Medical History Medical History: Medical History (Last Reviewed 01/16/18 @ 17:33 by Agatha Uribe MD) Bladder cancer COPD (chronic obstructive pulmonary disease) COPD (chronic obstructive pulmonary disease) with emphysema CPAP (continuous positive airway pressure) dependence Dehydration Enlarged prostate History of cardiac pacemaker in situ Hx of cardiac arrhythmia Kidney stone on right side Tingling of both feet - Surgical History Surgical History: Surgical History (Last Reviewed 01/16/18 @ 17:33 by Agatha Uribe MD) Hx of bilateral cataract extraction Hx of cervical spine surgery - Tobacco History Second Hand Smoke Exposure: No Tobacco Use In Past 30 Days: No Smoking Status: Former smoker Tobacco Type: Cigarettes - Alcohol History How Often Do You Have a Drink Containing Alcohol: Never - Substance Use History Substance History: No History of Abuse - Travel History Recent Travel in the [place] Within the Last 8 Weeks: No Recent Travel Out of the Country Within the Last 8 Weeks: No - Immunization History Tetanus Immunization: Unsure Medications and Allergies Active Medications: Active Medications Acetaminophen (Tylenol) 650 mg PO Q4H PRN PRN Reason: Temp > 100.4 Al Hydroxide/Mg Hydroxide (Milk Of Magnjesús Liq) 30 ml PO Q12H PRN PRN Reason: Mild Constipation Albuterol (Duoneb Neb (Prn)) 1 ampul NEB Q4HR NEB PRN PRN Reason: SOB/wheezing Amlodipine Besylate (Norvasc) 10 mg PO DAILY [facility] Last Admin: 01/16/18 09:19 Dose: 10 mg Atorvastatin Calcium (Lipitor) 10 mg PO DAILY [facility] Last Admin: 01/16/18 09:18 Dose: 10 mg Bisacodyl (Dulcolax Supp) 10 mg RECTAL DAILY PRN PRN Reason: SEVERE CONSITIPATION Carvedilol (Coreg) 6.25 mg PO BID [facility] Last Admin: 01/16/18 09:18 Dose: 6.25 mg Escitalopram Oxalate (Lexapro) 10 mg PO DAILY [facility] Last Admin: 01/16/18 09:18 Dose: 10 mg Gabapentin (Neurontin) 300 mg PO BID [facility] Last Admin: 01/16/18 09:19 Dose: 300 mg Sodium Chloride (Ns Inj) 1,000 mls @ 100 mls/hr IV.CONT .Q10H [facility] Stop: 01/16/18 18:29 Last Admin: 01/16/18 08:25 Dose: 100 mls/hr Vancomycin HCl 1,000 mg/ (Sodium Chloride) 250 mls @ 250 mls/hr IV.SIG ONCE ONE Stop: 01/16/18 16:29 Last Admin: 01/16/18 15:09 Dose: 250 mls/hr Piperacillin/Tazobactam/Dextrose (Zosyn 3.375 Gm Premix) 50 mls @ 100 mls/hr IV.SIG ONCE ONE Stop: 01/16/18 16:29 Last Admin: 01/16/18 15:54 Dose: 100 mls/hr Isosorbide Mononitrate (Imdur) 30 mg PO DAILY [facility] Last Admin: 01/16/18 09:18 Dose: 30 mg Lactulose (Lactulose Liq) 30 ml PO DAILY PRN PRN Reason: SEVERE CONSITIPATION Ondansetron HCl (Zofran Inj) 4 mg IV.PUSH Q6H PRN PRN Reason: NAUSEA OR VOMITING Senna/Docusate Sodium (Bel-Colace) 1 tab PO BID [facility] Last Admin: 01/16/18 09:19 Dose: 1 tab Sennosides (Senokot) 17.2 mg PO Q12H PRN PRN Reason: Moderate Constipation Sodium Chloride (Ns Flush) 2 ml IV.FLUSH BID [facility] Last Admin: 01/16/18 09:19 Dose: Not Given Sodium Chloride (Ns Flush) 2 ml IV.FLUSH PRN PRN PRN Reason: FLUSH AFTER USING IV ACCESS Tamsulosin HCl (Flomax) 0.[address] [facility] Allergies Allergy/AdvReac Type Severity Reaction Status Date / Time No Known Allergies Allergy Verified 01/02/18 12:33 Home Medications Medication Instructions Recorded Confirmed Type albuterol sulfate 2.5 mg INHALATION QID PRN 08/21/17 01/16/18 History carvedilol 6.25 mg PO BID 08/21/17 01/16/18 History escitalopram oxalate 10 mg PO DAILY 08/21/17 01/16/18 History gabapentin 300 mg PO BID 08/21/17 01/16/18 History naproxen 500 mg PO BID PRN 08/21/17 01/16/18 History potassium chloride 10 meq PO DAILY 08/21/17 01/16/18 History tamsulosin 0.4 mg PO HS 08/21/17 01/16/18 History furosemide 20 mg PO DAILY 08/25/17 01/16/18 History atorvastatin 10 mg PO DAILY 01/02/18 01/16/18 History isosorbide mononitrate 30 mg PO DAILY 01/02/18 01/16/18 History Oxygen 2 l INHALATION 01/05/18 01/16/18 History amlodipine 10 mg PO DAILY 01/05/18 01/16/18 History clonidine-chlorthalidone 1 tab PO BID 01/05/18 01/16/18 History Physical Exam Vital signs: Vital Signs 01/16/18 03:42 01/16/18 03:47 01/16/18 04:56 Temperature 97.7 F Pulse Rate 72 72 67 Respiratory Rate 20 18 18 Blood Pressure 207/83 H 174/73 H 112/53 L Pulse Oximetry 93 L 94 L 94 L 01/16/18 07:20 01/16/18 07:38 01/16/18 08:02 Temperature 97.8 F 98 F Pulse Rate 64 65 Respiratory Rate 17 17 18 Blood Pressure 142/64 H 133/60 Pulse Oximetry 98 97 01/16/18 08:20 01/16/18 16:00 01/16/18 16:05 Temperature 98 F 96.9 F L Pulse Rate 65 60 Respiratory Rate 18 30 H Blood Pressure 133/60 66/45 L 97/50 L Pulse Oximetry 97 97 Intake & Output 01/15/18 01/16/18 01/16/18 18:59 06:59 18:59 Intake Total 600 / 600 Balance 600 / 600 Weight 86.183 kg 88.859 kg Intake: IV 600 / 600 NS Inj 500 ML @ 1000 mls/hr IV. 500 / 500 SIG BOLUS BRIANNA Rx#:[id number] Rocephin Inj 1,000 MG In NS Inj 100 / 100 100 ML @ 200 mls/hr IV.SIG ONCE ONE Rx#:[id number] Other: Weight On Admission 87.1 kg Narrative: GENERAL: Elderly 82-year-old male who is lethargic encephalopathy muffled voice SKIN: Dry mottled, poorly perfused HEENT: Atraumatic. Normocephalic. Pupils equal and round. No scleral icterus. No injection or drainage, edentulous NECK: Trachea midline. No JVD. CARDIO: Regular rate and rhythm. Left upper chest pacemaker in place. Profound hypotension currently on 12 mcg/min of Levophed RESP: Using accessory muscle use. Air entry equal bilaterally with bilateral crackles ABD: +BS, soft, non-tender, nondistended. Bilateral flank tenderness EXT: Extremities without clubbing, cyanosis, or edema. Poorly perfused NEURO: Patient is very lethargic garbled speech, he is hardly able to state his name. Moves extremities very weakly Septic Shock Reassessment Septic shock perfusion: reassessment completed Assessment and Plan - Assessment and Plan Plan: ASSESSMENT: Septic shock Acute metabolic encephalopathy Acute hypoxemic respiratory failure UTI Lactic acidosis Kidney injury History of congestive heart failure History of bladder cancer History meatal stenosis Status post recent bilateral ureteroscopy suspicious for recurrent urothelial cancer involving both ureteral orifices. Status post recent right ureteroscopy with laser lithotripsy of distal ureteral calculus Status post bilateral ureteral stent placement AAA/Thoracic aortic aneurysm Bronchiectasis/Restrictive lung disease/COPD, chronically on 2L of supplemental O2 CHF Hyperlipidemia HTN PLAN: NEURO: -Postintubation placed on Versed infusion for sedation and vent synchrony -Altered mental status/encephalopathy secondary to metabolic encephalopathy and severe sepsis RESP: -Emergently intubated and placed on mechanical ventilation for worsening metabolic acidosis altered mental status and hypoxia -PRVC/AC, Ventilator bundle -DuoNeb every 4 hours scheduled and as needed -SBT when appropriate CV: -Normal saline IV fluids 3L bolus and maintenance fluid at 84 mL/h -Levophed to keep map above 65 currently at 12 mcg/min -Add vasopressin as second agent -2D echo 07/24/17: Estimated EF 45-50%, abnormal LV diastolic function, mild to moderate AR GI: -N.p.o., IV famotidine : -Monitor renal function closely. Reinsert Prince catheter. Patient's previous indwelling catheter was removed by Dr. Cabrera today -Urology Dr. Cabrera is following -CT of abdomen pelvis on admission showed bilateral ureteral stents are in place and there is mild distention of the collecting systems bilaterally. ID: -Antibiotics Zosyn renally dosed, vancomycin 1 dose -Blood urine and sputum cultures HEME: -Monitor CBC, coags ENDO: -Electrolyte replacement per protocol -Sliding scale insulin if needed PROPH: -Bilateral lower extremity SCDs. Lovenox/famotidine LINES: -Right IJ central line placed 01/16/2018. Respiratory to place art line CC time 77 min excluding procedures Code Status: Full
[2018-01-16 16:30] LABS: ABG Base Excess -5.2 mmol/L (-2-2); ABG PCO2 52 mmHg (38-42); ABG PO2 173 mmHG (61-120)
[2018-01-16] MEDS ORDERED: Midazolam Inj 5 MG/ML 1 ML Vial ONE (16:36)
[2018-01-16 16:42] LABS: Lymphocytes 4 % (9-44); Metamyelocytes 2 % (0-1); Monocytes 1 % (0-8)
[2018-01-16 16:43] LABS: Platelet Morphology Normal (Normal); RBC Morphology Normal (Normal); Toxic Vacuolation Present
--- NOTE | 2018-01-16 17:15 | P.PCN ---
Date of procedure: 01/16/18 Pre-op diagnosis: Acute hypxemic respiratory failure Post-op diagnosis: same Procedure: Endotracheal intubation The patient was noted to in acute metabolic acidosis, hypoxemic and hypercapnic respiratory failure. The patient was positioned in the sniffing position and was already on 100 % FiO2. Rapid sequence intubation initiated, patient administered 10 mg of IV Versed, 50 mg of IV rocuronium. (A Roseboom scope was used only because it was already set up. Intubation was easy). GlideScope with # 4 blade grade 1 view. Intubated on first attempt. The patient tolerated the procedure well with no immediate complications. CXR to be obtained stat Anesthesia: ALIS Surgeon: Agatha Uribe Pathology: none sent Condition: critical Disposition: ICU
--- NOTE | 2018-01-16 17:17 | P.PCN ---
Date of procedure: 01/16/18 Pre-op diagnosis: Septic shock Post-op diagnosis: same Procedure: US guided RIJ central line Central line checklist completed, timeout completed. I wore a surgical cap, mask with protective eyewear, full gown and sterile gloves throughout the procedure. Right neck region was prepped using chlorhexidine scrub and draped in sterile fashion. The RIJ was identified using the ultrasound. Anesthesia was achieved over the vein using 1% lidocaine. The introducer needle was inserted into the RIJ under direct ultrasound visualization. Venous blood was withdrawn. The syringe was removed and a guidewire was advanced into the introducer needle. A small incision was made at the skin surface with a scalpel and the introducer needle was exchanged for a dilator over the guidewire. After appropriate dilation was obtained, the dilator was exchanged over the wire for a triple lumen, 7F, antibiotic coated central venous catheter. The wire was removed and the catheter was secured with stay fix in place at 18 cm. A sterile central line dressing was placed over the catheter at the insertion site. The patient tolerated the procedure without any hemodynamic compromise. At time of procedure completion, all ports aspirated and flushed properly. Post-procedure chest x-ray is pending at this time. Anesthesia: regional Surgeon: Agatha Uribe Estimated blood loss (mL): 1 Pathology: none sent Condition: critical Disposition: ICU
[2018-01-16 17:30] LABS: ABG Base Excess -5.4 mmol/L (-2-2); ABG PCO2 41 mmHg (38-42); ABG PO2 97 mmHG (61-120)
[2018-01-16] MEDS ORDERED: Sod Chloride 0.9% Inj 1,000 ML IV.SIG SCH (17:30)
[2018-01-16] MEDS ORDERED: Vasopressin Inj 40 UNIT in Sodium Chlor 0.9% Inj 98 ML IV.CONT PRN (17:30)
[2018-01-16] MEDS: Midazolam 100 MG/100 ML Inj 100 MG/100 ML BAG IV.CONT PRN (17:39)
[2018-01-16] MEDS: Piperacil/Tazo 3.375 GM Premix 50 ML IV.SIG SCH ×2 (17:42→23:53)
--- NOTE | 2018-01-16 18:15 | XR ---
EXAM DATE: 01/16/2018 5:59 PM EST AGE/SEX: 82 years / Male INDICATIONS: Post central line placement. Status post intubation. CLINICAL DATA: This is the patient's subsequent encounter. Patient reports that signs and symptoms h ave been present for 3 days and indicates a pain score of Nonresponsive. MEDICAL/SURGICAL HISTORY: Chronic obstructive pulmonary disease. Emphysema. Hypertension. Ch olecystectomy Pacemaker. Cervical fusion COMPARISON: [facility] – [place], CHEST 1V SINGLE AP, 01/16/2018. . FINDINGS: A single AP semierect view of the chest was obtained and demonstrates interval placement of an endotr acheal tube with the tip approximately 4 cm above the tatyana. There is been placement of a right inte rnal jugular central venous line with the tip projected over the junction of the superior vena cava a nd right atrium. There is no pneumothorax. A nasogastric tube is been placed. The left subclavian tra nsvenous pacer remains in place. The heart size remains mildly prominent. There are streaky opacity a t the lung bases without change. There is no definite effusion. CONCLUSION: 1. Interval intubation. 2. Placement of right internal jugular central venous line with no pneumothorax. 3. Streaky opacity remains at the lung bases without significant change. Electronically signed by: Bob Cunningham MD 01/16/2018 6:13 PM EST
[2018-01-16] MEDS: Enoxaparin Inj 30 MG/0.3 ML Syringe SQ SCH (18:17)
[2018-01-16 19:07] LABS: Albumin 2.4 g/dL (3.4-5.0); Calcium 7.2 mg/dL (8.5-10.1); Carbon Dioxide 22.8 meq/L (21.0-32.0); Potassium 6.1 meq/L (3.5-5.1); Troponin I 0.11 ng/mL (0.02-0.05)
[2018-01-16] MEDS: Famotidine PF Inj 20 MG/2 ML Vial IV.PUSH SCH (21:49)
[2018-01-16] MEDS: Chlorhexidine 0.12% Oral Kit 15 ML UDC OROPHARYNG SCH (21:50)
[2018-01-17] MEDS: Oral Hygiene Kit OROPHARYNG SCH ×4 (00:01→17:50)
[2018-01-17 04:06] LABS: Hematocrit 35.6 % (39.0-51.0); Hemoglobin 11.8 gm/dL (13.0-17.0); Lymph # (Auto) 0.8 th/mm3 (1.0-4.8); Mean Corpuscular HGB Conc 33.2 % (32.0-36.0); Mean Corpuscular Hemoglobin 29.4 pg (27.0-34.0); Mean Corpuscular Volume 88.5 fL (80.0-100.0); Mean Platelet Volume 8.8 fL (7.0-11.0); Mono # (Auto) 0.8 th/mm3 (0.0-0.9); Mono % (Auto) 4.1 % (0.0-8.0); Neut % (Auto) 91.9 % (16.0-70.0); Platelet Count 133 th/mm3 (150-450); Red Blood Count 4.02 mil/mm3 (4.50-5.90); Red Cell Distribution Width 14.5 % (11.6-17.2); White Blood Count 20.7 th/mm3 (4.0-11.0)
[2018-01-17 04:44] LABS: Albumin 2.3 g/dL (3.4-5.0); Calcium 7.2 mg/dL (8.5-10.1); Magnesium 1.8 mg/dL (1.5-2.5); Potassium 6.2 meq/L (3.5-5.1); Troponin I 0.24 ng/mL (0.02-0.05)
[2018-01-17] MEDS: Piperacil/Tazo 3.375 GM Premix 50 ML IV.SIG SCH ×4 (04:54→22:50)
--- NOTE | 2018-01-17 06:02 | XR ---
EXAM DATE: 01/17/2018 5:23 AM EST AGE/SEX: 82 years / Male INDICATIONS: Shortness of breath, possible pulmonary disease. CLINICAL DATA: This is the patient's subsequent encounter. Patient reports that signs and symptoms h ave been present for 4 - 6 days and indicates a pain score of Nonresponsive. MEDICAL/SURGICAL HISTORY: Chronic obstructive pulmonary disease. Emphysema. Hypertension. Cho lecystectomy. Pacemaker. 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 COMPARISON: [facility] [place]ST 1V SINGLE AP, 01/16/2018. . FINDINGS: Portable AP view of the chest demonstrate stable mild enlargement of the cardiac silhouette. ETT, leonardo ogastric tube, and right IJ line remain present. Left chest wall cardiac pacing device also remains p resent. Lungs are underinflated with mild opacity at both lung bases. No pleural effusion or pneumoth orax is identified. The bones and soft tissues demonstrate no acute abnormality. CONCLUSION: Stable chest x-ray with mild bibasilar opacity representing either atelectasis or consolidation. Electronically signed by: Rony White MD 01/17/2018 6:01 AM EST
[2018-01-17] MEDS ORDERED: Sodium Bicarbonate 8.4% Inj 50 MEQ/50 ML Syringe IV.PUSH ONE (07:56)
[2018-01-17] MEDS ORDERED: Sodium Polystyrene Sulfonate/Sorbitol Liq 15 GM/60 ML UDC PO ONE (07:57)
[2018-01-17] MEDS: Senna/Docusate Sodium 8.6/50 MG Tablet PO SCH ×2 (08:25→20:30)
[2018-01-17] MEDS: Famotidine PF Inj 20 MG/2 ML Vial IV.PUSH SCH ×2 (08:25→20:29)
[2018-01-17] MEDS: Chlorhexidine 0.12% Oral Kit 15 ML UDC OROPHARYNG SCH ×2 (08:25→20:00)
[2018-01-17] MEDS ORDERED: Calcium Chloride Inj 1 GM in Sodium Chlor 0.9% Inj 100 ML IV.SIG ONE (09:00)
--- NOTE | 2018-01-17 09:02 | P.PNCC ---
Subjective Subjective Remarks/Hospital Course: Mr. Cheung is a 82-year-old male with bladder cancer, thoracic and abdominal aortic aneurysm, Bronchiectasis, Restrictive lung disease, COPD, on 2L of supplemental O2, history of congestive heart failure, Hyperlipidemia, HTN who recently underwent recent cystoscopy with meatal dilation about 4 days ago. According to Dr. 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 He underwent laser ablation of the tumor masses with biopsy along with laser lithotripsy and extraction of the right ureteral calculus. Bilateral stents were placed. Patient came to the ER today with symptoms of UTI and sepsis, altered mental status. UA showed evidence of UTI. Patient was started on Rocephin and admitted to hospitalist service. Over the course of the day patient clinically started deteriorating hypotensive with worsening encephalopathy hardly responsive. Patient was transferred to the ICU and critical care medicine was consulted. I evaluated the patient in the ICU he is very lethargic encephalopathy. Currently received 2 L normal saline bolus and had been started on Levophed currently at 12 mcg/min. Despite this patient is hypotensive. Initial ABG showed a pH of 7.25 PCO2 50 base excess -5 now slightly worse with pH of 7.23 PCO2 52. Due to severe sepsis and metabolic acidosis patient is not a candidate for BiPAP. WBC count of on admission was 14 with left shift now has worsened to 20.4. Initial lactic acid was 2,2 repeat lactic acid is pending at this time. Patient previously was sent home with indwelling Prince by Dr. Cabrera , he removed the Prince today. Patient has been oliguric and in renal failure. Will replace the Prince for strict hourly intake output SUBJ 01/17: Remains critical intubated sedated. Blood cultures all bottles growing gram-negative rods. Currently on Zosyn. Creatinine has worsened to 3, potassium is 6.2. Urine output has been marginal 10-15 mL/h. CVP is only 9. Fluid challenge with 1 L normal saline bolus and maintenance fluid 100 mL/h. Nephrology consulted, CMP at noon. Treatment for hyperkalemia ordered with IV insulin followed by dextrose, calcium, bicarb, Kayexalate and breathing treatments. Objective Vital Signs / I&O: Vital Signs 01/16/18 16:00 01/16/18 16:05 01/16/18 16:59 Temperature 96.9 F L Pulse Rate 60 Respiratory Rate 30 H 18 Blood Pressure 66/45 L 97/50 L Pulse Oximetry 97 98 01/16/18 17:35 01/16/18 18:00 01/16/18 19:25 Temperature 97.0 F L Pulse Rate 60 60 Respiratory Rate 18 18 Blood Pressure 111/55 L Pulse Oximetry 97 98 98 01/16/18 20:00 01/16/18 20:26 01/16/18 20:28 Temperature 97.6 F Pulse Rate 60 60 60 Respiratory Rate 20 20 20 Blood Pressure 129/63 129/63 Pulse Oximetry 98 98 98 01/16/18 20:30 01/16/18 21:00 01/16/18 22:00 Temperature Pulse Rate 60 60 60 Respiratory Rate 22 21 21 Blood Pressure 126/63 Pulse Oximetry 98 99 93 L 01/16/18 23:00 01/16/18 23:04 01/16/18 23:08 Temperature Pulse Rate 60 60 Respiratory Rate 23 23 23 Blood Pressure Pulse Oximetry 100 98 01/17/18 00:00 01/17/18 00:57 01/17/18 01:00 Temperature Pulse Rate 60 61 62 Respiratory Rate 22 24 23 Blood Pressure 127/62 Pulse Oximetry 100 100 100 01/17/18 01:41 01/17/18 02:00 01/17/18 03:00 Temperature Pulse Rate 61 62 Respiratory Rate 22 22 Blood Pressure Pulse Oximetry 98 99 99 01/17/18 03:17 01/17/18 04:00 01/17/18 04:04 Temperature Pulse Rate 62 66 Respiratory Rate 21 21 22 Blood Pressure Pulse Oximetry 100 98 01/17/18 05:00 01/17/18 05:40 01/17/18 06:00 Temperature Pulse Rate 65 62 63 Respiratory Rate 19 21 21 Blood Pressure 103/54 L 112/55 L Pulse Oximetry 100 99 99 01/17/18 06:30 01/17/18 07:00 01/17/18 08:03 Temperature Pulse Rate 63 65 67 Respiratory Rate 21 22 19 Blood Pressure 139/63 Pulse Oximetry 99 100 Intake & Output 01/16/18 01/17/18 01/17/18 18:59 06:59 18:59 Intake Total 4454 / 4454 1100 / 1100 Output Total 725 / 725 100 / 100 Balance 3729 / 3729 1000 / 1000 Weight 88.859 kg 93 kg Intake: IV 3952 / 3952 1100 / 1100 Versed Inj 100 mg In 100 ml @ 2 2 / 2 MG/HR 2 mls/hr IV.CONT TITRATE PRN Rx#:[id number] NS Inj 1,000 ML @ 100 mls/hr IV 1000 / 1000 .CONT .Q10H [facility] Rx#:[id number] Zosyn 3.375 GM Premix 50 ML @ 100 / 100 100 / 100 100 mls/hr IV.SIG Q6H [facility] Rx#: [id number] NS Inj 2,000 ML @ As Directed 2000 / 2000 1000 / 1000 IV.SIG ONCE ONE Rx#:[id number] NS Inj 500 ML @ 1000 mls/hr IV. 500 / 500 SIG BOLUS [facility] Rx#:[id number] Vancomycin Inj 1,000 MG In NS 250 / 250 Inj 250 ML @ 250 mls/hr IV.SIG ONCE ONE Rx#:[id number] Rocephin Inj 1,000 MG In NS Inj 100 / 100 100 ML @ 200 mls/hr IV.SIG ONCE ONE Rx#:[id number] Oral 0 / 0 Tube Feeding 502 / 502 Output: Urine 700 / 700 Urine Amount (Catheter) 25 / 25 100 / 100 Indwelling Urethral Catheter 25 / 25 100 / 100 Other: Weight On Admission 87.1 kg Result Diagrams: 01/17/18 03:30 01/17/18 03:30 Objective Remarks: GENERAL: Elderly 82-year-old male who is encephalopathy currently intubated on Versed infusion SKIN: Dry mottled, poorly perfused HEENT: Atraumatic. Normocephalic. Pupils equal and round. No scleral icterus. No injection or drainage, edentulous. Intubated NECK: Trachea midline. No JVD. CARDIO: Regular rate and rhythm. Left upper chest pacemaker in place. RESP: Air entry equal bilaterally with bilateral crackles. No wheezes or rhonchi ABD: +BS, soft, non-tender, nondistended. Bilateral flank tenderness EXT: Extremities without clubbing, cyanosis, or edema. Poorly perfused NEURO: Intubated sedated with Versed infusion. Moves extremities weakly. 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 Status post recent right ureteroscopy with laser lithotripsy of distal ureteral calculus Status post bilateral ureteral stent placement AAA/Thoracic aortic aneurysm Bronchiectasis/Restrictive lung disease/COPD, chronically on 2L of supplemental O2 CHF Hyperlipidemia HTN PLAN: NEURO: -Continue Versed infusion for sedation and vent synchrony -Altered mental status/encephalopathy secondary to metabolic encephalopathy and severe sepsis -Start sedation vacation in 24 hours when he is hemodynamically stable RESP: -Emergently intubated and placed on mechanical ventilation for worsening metabolic acidosis altered mental status and hypoxia -PRVC/AC, Ventilator bundle -DuoNeb every 4 hours scheduled and as needed -SBT in 24 hours CV: -Normal saline IV fluids 3L bolus -Currently oliguric with CVP of 9. Additional 1 L normal saline bolus followed by 100 mL/h infusion -Levophed to keep map above 65 currently weaned off Levophed and vasopressin -Trend lactic acid -2D echo 07/24/17: Estimated EF 45-50%, abnormal LV diastolic function, mild to moderate AR GI: -N.p.o., IV famotidine -Start tube feeds with Nepro : -Monitor renal function closely. Reinsert Prince catheter. Patient's previous indwelling catheter was removed by Dr. Cabrera today -Urology Dr. Cabrera is following -Nephrology for worsening oliguric renal failure creatinine now 3 -CT of abdomen pelvis on admission showed bilateral ureteral stents are in place and there is mild distention of the collecting systems bilaterally. ID: -Antibiotics Zosyn renally dosed, received vancomycin 1 dose -Blood urine and sputum cultures. Blood culture growing gram-negative rods and 3 out of 4 bottles- -urine culture pending HEME: -Monitor CBC, coags ENDO: -Hyperkalemia treatment with IV insulin, IV bicarb, IV calcium, breathing treatment and Kayexalate -Repeat CMP at noon PROPH: -Bilateral lower extremity SCDs. Lovenox/famotidine LINES: -Right IJ central line placed 01/16/2018. Respiratory placed art line 01/16/18 CC time 38 min excluding procedures
[2018-01-17] MEDS: Midazolam 100 MG/100 ML Inj 100 MG/100 ML BAG IV.CONT PRN (09:38)
[2018-01-17] MEDS: Sod Chloride 0.9% Inj 1,000 ML IV.CONT SCH ×2 (09:39→19:07)
--- NOTE | 2018-01-17 09:58 | P.CONNP ---
<Kaylen Marie - Last Filed: 01/17/18 09:35> History of Present Illness Service: Nephrology Consult date: 01/17/18 Requesting Physician: Agatha Uribe Reason for Consult: Acute kidney injury with hyperkalemia. Primary Care Provider: Pop Escobar MD Chief Complaint: AMS, septic shock History of Present Illness: Patient is a 82-year-old male with bladder cancer, thoracic and abdominal aortic aneurysm, bronchiectasis, restrictive lung disease, COPD, on 2L of supplemental O2, history of congestive heart failure, hyperlipidemia, and hypertension. Recently underwent recent cystoscopy with meatal dilation about 4 days ago. He underwent laser ablation of the tumor masses with biopsy along with laser lithotripsy and extraction of the right ureteral calculus. Bilateral stents were placed. Patient came to the emergency room with symptoms of UTI and sepsis, altered mental status. UA showed evidence of UTI. Patient was started on Rocephin and admitted to hospitalist service. Patient further deteriorated and became hypotensive with worsening encephalopathy hardly responsive. Patient is now intubated on minimal sedation. Nephrology is consulted for acute kidney injury, hyperkalemia, and oliguria. Creatinine on admission was 1.78 and now has increased to 2.98 with a potassium level of 6.2. He was on pressor support yesterday which has now been discontinued and patient is being bolused. Has indwelling jenkins catheter with only small amount of urine. Review of Systems unobtainable due to endotracheal tube PMFSH - History History Provided By: Patient - Medical History Medical History: Medical History (Last Reviewed 01/16/18 @ 17:33 by Agatha Uribe MD) Bladder cancer COPD (chronic obstructive pulmonary disease) COPD (chronic obstructive pulmonary disease) with emphysema CPAP (continuous positive airway pressure) dependence Dehydration Enlarged prostate History of cardiac pacemaker in situ Hx of cardiac arrhythmia Kidney stone on right side Tingling of both feet - Surgical History Surgical History: Surgical History (Last Reviewed 01/16/18 @ 17:33 by Agatha Uribe MD) Hx of bilateral cataract extraction Hx of cervical spine surgery - Tobacco History Second Hand Smoke Exposure: No Tobacco Use In Past 30 Days: No Smoking Status: Former smoker Tobacco Type: Cigarettes - Alcohol History How Often Do You Have a Drink Containing Alcohol: Never - Substance Use History Substance History: No History of Abuse - Travel History Recent Travel in the [facility] Within the Last 8 Weeks: No Recent Travel Out of the Country Within the Last 8 Weeks: No - Immunization History Tetanus Immunization: Unsure Medications and Allergies Allergies Allergy/AdvReac Type Severity Reaction Status Date / Time No Known Allergies Allergy Verified 01/02/18 12:33 Home Medications Medication Instructions Recorded Confirmed Type albuterol sulfate 2.5 mg INHALATION QID PRN 08/21/17 01/16/18 History carvedilol 6.25 mg PO BID 08/21/17 01/16/18 History escitalopram oxalate 10 mg PO DAILY 08/21/17 01/16/18 History gabapentin 300 mg PO BID 08/21/17 01/16/18 History naproxen 500 mg PO BID PRN 08/21/17 01/16/18 History potassium chloride 10 meq PO DAILY 08/21/17 01/16/18 History tamsulosin 0.4 mg PO HS 08/21/17 01/16/18 History furosemide 20 mg PO DAILY 08/25/17 01/16/18 History atorvastatin 10 mg PO DAILY 01/02/18 01/16/18 History isosorbide mononitrate 30 mg PO DAILY 01/02/18 01/16/18 History Oxygen 2 l INHALATION HS 01/05/18 01/16/18 History amlodipine 10 mg PO DAILY 01/05/18 01/16/18 History clonidine-chlorthalidone 1 tab PO BID 01/05/18 01/16/18 History Active Medications: Active Medications Acetaminophen (Tylenol) 650 mg PO Q4H PRN PRN Reason: Temp > 100.4 Al Hydroxide/Mg Hydroxide (Milk Of Magnesia Liq) 30 ml PO Q12H PRN PRN Reason: Mild Constipation Albuterol (Duoneb Neb (Prn)) 1 ampul NEB Q4HR NEB PRN PRN Reason: SOB/wheezing Albuterol (Duoneb Neb (Nisha)) 1 ampul NEB Q4HR NEB [facility] Last Admin: 01/17/18 08:03 Dose: 1 ampul Amlodipine Besylate (Norvasc) 10 mg PO DAILY [facility] Last Admin: 01/16/18 09:19 Dose: 10 mg Atorvastatin Calcium (Lipitor) 10 mg PO DAILY [facility] Last Admin: 01/17/18 08:25 Dose: 10 mg Bisacodyl (Dulcolax Supp) 10 mg RECTAL DAILY PRN PRN Reason: SEVERE CONSITIPATION Carvedilol (Coreg) 6.25 mg PO BID [facility] Last Admin: 01/16/18 09:18 Dose: 6.25 mg Chlorhexidine Gluconate (Peridex 0.12% Oral Kit) 15 ml OROPHARYNG BID@0800, 2000 [facility] Last Admin: 01/17/18 08:25 Dose: 15 ml Enoxaparin Sodium (Lovenox Inj) 30 mg SQ Q24H [facility] Last Admin: 01/16/18 18:17 Dose: 30 mg Escitalopram Oxalate (Lexapro) 10 mg PO DAILY [facility] Last Admin: 01/16/18 09:18 Dose: 10 mg Famotidine (Pepcid Pf Inj) 10 mg IV.PUSH Q12HR [facility] Last Admin: 01/17/18 08:25 Dose: 10 mg Furosemide (Lasix Inj) 40 mg IV.PUSH TID [facility] Gabapentin (Neurontin) 300 mg PO BID [facility] Last Admin: 01/16/18 09:19 Dose: 300 mg Piperacillin/Tazobactam/Dextrose (Zosyn 3.375 Gm Premix) 50 mls @ 100 mls/hr IV.SIG Q6H [facility] Last Infusion: 01/17/18 05:30 Dose: Infused Vasopressin 40 unit/ Sodium (Chloride) 100 mls @ 1.5 mls/hr IV.CONT TITRATE PRN ; Protocol PRN Reason: Per Protocol Last Titration: 01/17/18 04:46 Dose: 0 units/min, 0 mls/hr Midazolam HCl (Versed Inj) 100 mg in 100 mls @ 2 mls/hr IV.CONT TITRATE PRN; Protocol PRN Reason: See protocol Last Titration: 01/16/18 21:00 Dose: 5 mg/hr, 5 mls/hr Calcium Chloride 1 gm/ Sodium (Chloride) 110 mls @ 110 mls/hr IV.SIG ONCE ONE Stop: 01/17/18 09:59 Last Admin: 01/17/18 09:04 Dose: 110 mls/hr Sodium Chloride (Ns Inj) 1,000 mls @ 100 mls/hr IV.CONT .Q10H [facility] Isosorbide Mononitrate (Imdur) 30 mg PO DAILY [facility] Last Admin: 01/16/18 09:18 Dose: 30 mg Lactulose (Lactulose Liq) 30 ml PO DAILY PRN PRN Reason: SEVERE CONSITIPATION Miscellaneous Medication () 1 each OROPHARYNG 0000,0400,1200,1600 [facility] Last Admin: 01/17/18 04:00 Dose: 1 each Ondansetron HCl (Zofran Inj) 4 mg IV.PUSH Q6H PRN PRN Reason: NAUSEA OR VOMITING Senna/Docusate Sodium (Bel-Colace) 1 tab PO BID [facility] Last Admin: 01/17/18 08:25 Dose: 1 tab Sennosides (Senokot) 17.2 mg PO Q12H PRN PRN Reason: Moderate Constipation Sodium Chloride (Ns Flush) 2 ml IV.FLUSH BID [facility] Last Admin: 01/17/18 08:26 Dose: 2 ml Sodium Chloride (Ns Flush) 2 ml IV.FLUSH PRN PRN PRN Reason: FLUSH AFTER USING IV ACCESS Tamsulosin HCl (Flomax) 0.4 mg PO HS [facility] Last Admin: 01/16/18 21:49 Dose: 0.4 mg Exam Vital signs: Vital Signs 01/16/18 16:00 01/16/18 16:05 01/16/18 16:59 Temperature 96.9 F L Pulse Rate 60 Respiratory Rate 30 H 18 Blood Pressure 66/45 L 97/50 L Pulse Oximetry 97 98 01/16/18 17:35 01/16/18 18:00 01/16/18 19:25 Temperature 97.0 F L Pulse Rate 60 60 Respiratory Rate 18 18 Blood Pressure 111/55 L Pulse Oximetry 97 98 98 01/16/18 20:00 01/16/18 20:26 01/16/18 20:28 Temperature 97.6 F Pulse Rate 60 60 60 Respiratory Rate 20 20 20 Blood Pressure 129/63 129/63 Pulse Oximetry 98 98 98 01/16/18 20:30 01/16/18 21:00 01/16/18 22:00 Temperature Pulse Rate 60 60 60 Respiratory Rate 22 21 21 Blood Pressure 126/63 Pulse Oximetry 98 99 93 L 01/16/18 23:00 01/16/18 23:04 01/16/18 23:08 Temperature Pulse Rate 60 60 Respiratory Rate 23 23 23 Blood Pressure Pulse Oximetry 100 98 01/17/18 00:00 01/17/18 00:57 01/17/18 01:00 Temperature Pulse Rate 60 61 62 Respiratory Rate 22 24 23 Blood Pressure 127/62 Pulse Oximetry 100 100 100 01/17/18 01:41 01/17/18 02:00 01/17/18 03:00 Temperature Pulse Rate 61 62 Respiratory Rate 22 22 Blood Pressure Pulse Oximetry 98 99 99 01/17/18 03:17 01/17/18 04:00 01/17/18 04:04 Temperature Pulse Rate 62 66 Respiratory Rate 21 21 22 Blood Pressure Pulse Oximetry 100 98 01/17/18 05:00 01/17/18 05:40 01/17/18 06:00 Temperature Pulse Rate 65 62 63 Respiratory Rate 19 21 21 Blood Pressure 103/54 L 112/55 L Pulse Oximetry 100 99 99 01/17/18 06:30 01/17/18 07:00 01/17/18 08:03 Temperature Pulse Rate 63 65 67 Respiratory Rate 21 22 19 Blood Pressure 139/63 Pulse Oximetry 99 100 Intake & Output 01/16/18 01/17/18 01/17/18 18:59 06:59 18:59 Intake Total 4454 / 4454 1100 / 1100 Output Total 725 / 725 100 / 100 Balance 3729 / 3729 1000 / 1000 Weight 88.859 kg 93 kg Intake: IV 3952 / 3952 1100 / 1100 Versed Inj 100 mg In 100 ml @ 2 2 / 2 MG/HR 2 mls/hr IV.CONT TITRATE PRN Rx#:[id number] NS Inj 1,000 ML @ 100 mls/hr IV 1000 / 1000 .CONT .Q10H [facility] Rx#:[id number] Zosyn 3.375 GM Premix 50 ML @ 100 / 100 100 / 100 100 mls/hr IV.SIG Q6H [facility] Rx#: [id number] NS Inj 2,000 ML @ As Directed 1999 / 1999 1000 / 1000 IV.SIG ONCE ONE Rx#:[id number] NS Inj 500 ML @ 1000 mls/hr IV. 500 / 500 SIG BOLUS N[facility] Rx#:[id number] Vancomycin Inj 1,000 MG In NS 250 / 250 Inj 250 ML @ 250 mls/hr IV.SIG ONCE ONE Rx#:[id number] Rocephin Inj 1,000 MG In NS Inj 100 / 100 100 ML @ 200 mls/hr IV.SIG ONCE ONE Rx#:[id number] Oral 0 / 0 Tube Feeding 502 / 502 Output: Urine 700 / 700 Urine Amount (Catheter) 100 / 100 Indwelling Urethral Catheter 100 / 100 Other: Weight On Admission 87.1 kg Narrative: GENERAL: Orally intubated on mild sedation. SKIN: Warm and dry. NECK: Supple, trachea midline. No JVD. CARDIOVASCULAR: Regular rate and rhythm without murmurs, gallops, or rubs. Right IJ central line. RESPIRATORY: Breath sounds equal bilaterally. No accessory muscle use. GASTROINTESTINAL: Abdomen soft, non-tender, nondistended. OG tube. GENITOURINARY: Indwelling Jenkins catheter, minimal light yellow urine. MUSCULOSKELETAL: No cyanosis, or edema. Results - Lab Results 01/17/18 03:30 01/17/18 03:30 Most recent lab results ABG pH 7.31 (7.380-7.420) L 01/16/18 17:20 ABG pCO2 41 mmHg (38-42) 01/16/18 17:20 ABG pO2 97 mmHG (61-120) 01/16/18 17:20 ABG HCO3 20 mmol/L (22-26) L 01/16/18 17:20 Calcium 7.2 mg/dL (8.5-10.1) L* 01/17/18 03:30 Magnesium 1.8 mg/dL (1.5-2.5) 01/17/18 03:30 Assessment and Plan - Assessment (1) Acute kidney injury Code(s): N17.9 - Acute kidney failure, unspecified Status: Acute Plan: Acute kidney injury with a creatinine of 2.98 and potassium level of 6.2, on admission creatinine was at 1.78. BECK most likely ATN from sepsis and hypotension. The CT of abdomen showed the kidneys enhance heterogeneously. In the right mid kidney there is a 3.3 cm low-density lesion with density measurements consistent with a cyst. There is fullness of the collecting systems bilaterally and distended extrarenal pelves. There are bilateral ureteral stents extending from the extrarenal pelvis to the urinary bladder bilaterally. No renal stones are identified. Avoid nephrotoxins as possible Maintain strict I+O, indwelling Jenkins catheter. Maintain a MAP of 60 mmHg Hyperkalemia has been treated IV insulin followed by dextrose, calcium, bicarb, Kayexalate and breathing treatments. Continue IVF Lasix has been ordered, reduced urinary output With increase in creatinine, decreased urinary output and hyperkalemia, patient may need Hemodialysis Repeat CMP at noon/ (2) Sepsis Code(s): A41.9 - Sepsis, unspecified organism Status: Acute Plan: Blood cultures positive for gram negative rods, sensitivity pending. On Zosyn. (3) Acute UTI Code(s): N39.0 - Urinary tract infection, site not specified Status: Acute Plan: Has received Rocephin. Culture is pending. (4) Respiratory failure Code(s): J96.90 - Respiratory failure, unspecified, unspecified whether with hypoxia or hypercapnia Status: Acute Plan: Patient is intubated on very mild sedation. <Ender Duarte - Last Filed: 01/18/18 09:39> History of Present Illness Primary Care Provider: Pop Escobar MD [facility] - Medical History Medical History: Medical History (Last Reviewed 01/16/18 @ 17:33 by Agatha Uribe MD) Bladder cancer COPD (chronic obstructive pulmonary disease) COPD (chronic obstructive pulmonary disease) with emphysema CPAP (continuous positive airway pressure) dependence Dehydration Enlarged prostate History of cardiac pacemaker in situ Hx of cardiac arrhythmia Kidney stone on right side Tingling of both feet - Surgical History Surgical History: Surgical History (Last Reviewed 01/16/18 @ 17:33 by Agatha Uribe MD) Hx of bilateral cataract extraction Hx of cervical spine surgery Medications and Allergies Active Medications: Active Medications Acetaminophen (Tylenol) 650 mg PO Q4H PRN PRN Reason: Temp > 100.4 Last Admin: 01/18/18 05:26 Dose: 650 mg Al Hydroxide/Mg Hydroxide (Milk Of Micah Liq) 30 ml PO Q12H PRN PRN Reason: Mild Constipation Albuterol (Duoneb Neb (Prn)) 1 ampul NEB Q4HR NEB PRN PRN Reason: SOB/wheezing Albuterol (Duoneb Neb (Nisha)) 1 ampul NEB Q6HR NEB [facility] Last Admin: 01/18/18 07:26 Dose: 1 ampul Amlodipine Besylate (Norvasc) 10 mg PO DAILY [facility] Last Admin: 01/16/18 09:19 Dose: 10 mg Atorvastatin Calcium (Lipitor) 10 mg PO DAILY [facility] Last Admin: 01/18/18 08:05 Dose: 10 mg Bisacodyl (Dulcolax Supp) 10 mg RECTAL DAILY PRN PRN Reason: SEVERE CONSITIPATION Carvedilol (Coreg) 6.25 mg PO BID [facility] Last Admin: 01/16/18 09:18 Dose: 6.25 mg Chlorhexidine Gluconate (Peridex 0.12% Oral Kit) 15 ml OROPHARYNG BID@0800, 2000 [facility] Last Admin: 01/18/18 08:06 Dose: 15 ml Escitalopram Oxalate (Lexapro) 10 mg PO DAILY [facility] Last Admin: 01/16/18 09:18 Dose: 10 mg Famotidine (Pepcid Pf Inj) 10 mg IV.PUSH Q12HR [facility] Last Admin: 01/18/18 08:05 Dose: 10 mg Furosemide (Lasix Inj) 40 mg IV.PUSH TID [facility] Last Admin: 01/18/18 08:06 Dose: 40 mg Gabapentin (Neurontin) 300 mg PO BID [facility] Last Admin: 01/16/18 09:19 Dose: 300 mg Piperacillin/Tazobactam/Dextrose (Zosyn 3.375 Gm Premix) 50 mls @ 100 mls/hr IV.SIG Q6H [facility] Last Infusion: 01/18/18 06:15 Dose: Infused Vasopressin 40 unit/ Sodium (Chloride) 100 mls @ 1.5 mls/hr IV.CONT TITRATE PRN ; Protocol PRN Reason: Per Protocol Last Titration: 01/17/18 04:46 Dose: 0 units/min, 0 mls/hr Diltiazem HCl 125 mg/ Sodium (Chloride) 125 mls @ 5 mls/hr IV.CONT TITRATE PRN ; Protocol PRN Reason: Per Protocol Last Admin: 01/17/18 18:17 Dose: 5 mg/hr, 5 mls/hr Heparin Sodium/Dextrose (Heparin/D5w 25,000 U/250 Ml) 25,000 unit in 250 mls @ 10 mls/hr IV.CONT TITRATE PRN; Protocol PRN Reason: Per Protocol Last Admin: 01/18/18 08:06 Dose: 1,000 units/hr, 10 mls/hr Propofol (Diprivan 1000 Mg/100 Ml Inj) 1,000 mg in 100 mls @ 2.784 mls/hr IV.CONT TITRATE PRN; Protocol PRN Reason: Per Protocol Isosorbide Mononitrate (Imdur) 30 mg PO DAILY [facility] Last Admin: 01/16/18 09:18 Dose: 30 mg Lactulose (Lactulose Liq) 30 ml PO DAILY PRN PRN Reason: SEVERE CONSITIPATION Lactulose (Lactulose Liq) 30 ml PO BID [facility] Last Admin: 01/18/18 08:05 Dose: 30 ml Miscellaneous Medication () 1 each OROPHARYNG 0000,0400,1200,1600 [facility] Last Admin: 01/18/18 05:27 Dose: 1 each Ondansetron HCl (Zofran Inj) 4 mg IV.PUSH Q6H PRN PRN Reason: NAUSEA OR VOMITING Senna/Docusate Sodium (Bel-Colace) 1 tab PO BID [facility] Last Admin: 01/18/18 08:05 Dose: 1 tab Sennosides (Senokot) 17.2 mg PO Q12H PRN PRN Reason: Moderate Constipation Sodium Chloride (Ns Flush) 2 ml IV.FLUSH BID [facility] Last Admin: 01/18/18 08:06 Dose: Not Given Sodium Chloride (Ns Flush) 2 ml IV.FLUSH PRN PRN PRN Reason: FLUSH AFTER USING IV ACCESS Tamsulosin HCl (Flomax) 0.4 mg PO HS [facility] Last Admin: 01/17/18 20:30 Dose: 0.4 mg Exam Vital signs: Vital Signs 01/17/18 12:00 01/17/18 12:04 01/17/18 16:00 Temperature 98.5 F 98.9 F Pulse Rate 68 70 70 Respiratory Rate 21 19 18 Blood Pressure 132/66 162/73 H Pulse Oximetry 99 99 99 01/17/18 16:52 01/17/18 19:00 01/17/18 19:40 Temperature Pulse Rate 73 100 H Respiratory Rate 20 22 22 Blood Pressure Pulse Oximetry 100 100 100 01/17/18 19:42 01/17/18 20:00 01/17/18 21:00 Temperature 99.1 F Pulse Rate 96 H 95 H 97 H Respiratory Rate 22 22 21 Blood Pressure 176/75 H Pulse Oximetry 100 100 01/17/18 22:00 01/17/18 23:00 01/17/18 23:16 Temperature Pulse Rate 99 H 89 95 H Respiratory Rate 21 20 20 Blood Pressure 158/94 H Pulse Oximetry 100 99 01/17/18 23:17 01/18/18 00:00 01/18/18 00:01 Temperature Pulse Rate 92 H 97 H Respiratory Rate 21 20 20 Blood Pressure 97/61 L 97/61 L Pulse Oximetry 100 100 100 01/18/18 01:00 01/18/18 02:00 01/18/18 03:00 Temperature Pulse Rate 86 87 83 Respiratory Rate 20 18 19 Blood Pressure 115/61 Pulse Oximetry 100 100 100 01/18/18 04:00 01/18/18 04:17 01/18/18 05:00 Temperature Pulse Rate 83 82 81 Respiratory Rate 19 20 19 Blood Pressure 121/81 114/61 Pulse Oximetry 100 100 100 01/18/18 07:27 Temperature Pulse Rate 75 Respiratory Rate 19 Blood Pressure Pulse Oximetry 100 Intake & Output 01/17/18 01/18/18 01/18/18 18:59 06:59 18:59 Intake Total 813 / 813 2757 / 2757 Output Total 600 / 600 1350 / 1350 Balance 213 / 213 1407 / 1407 Weight 92.8 kg Intake: IV 308 / 308 2198 / 2198 Versed Inj 100 mg In 100 ml @ 2 98 / 98 98 / 98 MG/HR 2 mls/hr IV.CONT TITRATE PRN Rx#:[id number] NS Inj 1,000 ML @ 100 mls/hr IV 1999 / 1999 .CONT .Q10H [facility] Rx#:[id number] Calcium Chloride Inj 1 GM In NS 110 / 110 Inj 100 ML @ 110 mls/hr IV.SIG ONCE ONE Rx#:[id number] Zosyn 3.375 GM Premix 50 ML @ 100 / 100 100 / 100 100 mls/hr IV.SIG Q6H [facility] Rx#: [id number] Tube Feeding 305 / 305 459 / 459 Water Bolus Amount 200 / 200 100 / 100 Output: Urine Amount (Catheter) 600 / 600 1350 / 1350 Indwelling Urethral Catheter 600 / 600 1350 / 1350 Results - Lab Results 01/18/18 03:00 01/18/18 03:00 Most recent lab results ABG pH 7.31 (7.380-7.420) L 01/16/18 17:20 ABG pCO2 41 mmHg (38-42) 01/16/18 17:20 ABG pO2 97 mmHG (61-120) 01/16/18 17:20 ABG HCO3 20 mmol/L (22-26) L 01/16/18 17:20 Calcium 7.3 mg/dL (8.5-10.1) L* 01/18/18 03:00 Phosphorus 3.9 mg/dL (2.5-4.9) 01/18/18 03:00 Magnesium 1.9 mg/dL (1.5-2.5) 01/18/18 03:00 Assessment and Plan - Assessment (1) Acute kidney injury Code(s): N17.9 - Acute kidney failure, unspecified Status: Acute Plan: Patient seen and examined, agree with above, Patient with Acute kidney injury and Hyperkalemia, Urine out put is low. Most likely has ATN due to hypotension, now B[P is better, start Lasix, treatment given for Hyperkalemia. Follow the urine out put and BMP. May need HD. (2) Sepsis Code(s): A41.9 - Sepsis, unspecified organism Status: Acute (3) Acute UTI Code(s): N39.0 - Urinary tract infection, site not specified Status: Acute (4) Respiratory failure Code(s): J96.90 - Respiratory failure, unspecified, unspecified whether with hypoxia or hypercapnia Status: Acute
[2018-01-17 13:38] LABS: Alanine Aminotransferase 72 U/L (12-78); Albumin 2.1 g/dL (3.4-5.0); Alkaline Phosphatase 51 U/L (45-117); Anion Gap 7 meq/L (5-15); Aspartate Aminotransferase 65 U/L (15-37); Blood Urea Nitrogen 54 mg/dL (7-18); Calcium 7.8 mg/dL (8.5-10.1); Carbon Dioxide 22.6 meq/L (21.0-32.0); Chloride 113 meq/L (98-107); Glomerular Filtration Rate 17 mL/min (>89); Glucose,Random 103 mg/dL (74-106); Potassium 4.8 meq/L (3.5-5.1); Sodium 143 meq/L (136-145)
[2018-01-17] MEDS: Enoxaparin Inj 30 MG/0.3 ML Syringe SQ SCH (17:50)
[2018-01-17] MEDS: dilTIAZem Inj 125 MG in Sodium Chlor 0.9% Inj 100 ML IV.CONT PRN (18:17)
[2018-01-17] MEDS: Acetaminophen 325 MG Tablet PO PRN (20:30)
[2018-01-18] MEDS: Oral Hygiene Kit OROPHARYNG SCH ×4 (02:51→17:33)
[2018-01-18 03:24] LABS: Hematocrit 35.1 % (39.0-51.0); Hemoglobin 11.5 gm/dL (13.0-17.0); Mean Corpuscular HGB Conc 32.9 % (32.0-36.0); Mean Corpuscular Hemoglobin 29.4 pg (27.0-34.0); Mean Corpuscular Volume 89.3 fL (80.0-100.0); Mean Platelet Volume 8.6 fL (7.0-11.0); Platelet Count 122 th/mm3 (150-450); Red Blood Count 3.93 mil/mm3 (4.50-5.90); Red Cell Distribution Width 14.7 % (11.6-17.2); White Blood Count 15.2 th/mm3 (4.0-11.0)
[2018-01-18 04:04] LABS: Albumin 1.9 g/dL (3.4-5.0); Calcium 7.3 mg/dL (8.5-10.1); Carbon Dioxide 22.5 meq/L (21.0-32.0); Magnesium 1.9 mg/dL (1.5-2.5); Phosphorus 3.9 mg/dL (2.5-4.9)
--- NOTE | 2018-01-18 04:14 | XR ---
EXAM DATE: 01/18/2018 4:02 AM EST AGE/SEX: 82 years / Male INDICATIONS: Shortness of breath, possible pulmonary disease. CLINICAL DATA: This is the patient's subsequent encounter. Patient reports that signs and symptoms h ave been present for 4 - 6 days and indicates a pain score of Nonresponsive. MEDICAL/SURGICAL HISTORY: Chronic obstructive pulmonary disease. Emphysema. Hypertension. Cho lecystectomy. Pacemaker. 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 COMPARISON: [facility] [place] [facility] [place] 1V SINGLE AP, 01/17/2018. . FINDINGS: Portable AP view of the chest demonstrates stable mild enlargement of the cardiac silhouette. Cardiac pacing device is present. ETT, nasogastric tube, and right IJ central line remain present. Ends are mildly underinflated with mild bibasilar opacity. No pleural effusion or pneumothorax is present. CONCLUSION: Stable chest x-ray with mild bibasilar opacity. Electronically signed by: Rony White MD 01/18/2018 4:12 AM EST
[2018-01-18] MEDS: Acetaminophen 325 MG Tablet PO PRN (05:26)
[2018-01-18] MEDS: Sod Chloride 0.9% Inj 1,000 ML IV.CONT SCH (05:27)
[2018-01-18] MEDS: Piperacil/Tazo 3.375 GM Premix 50 ML IV.SIG SCH ×4 (05:34→23:56)
[2018-01-18] MEDS: Midazolam 100 MG/100 ML Inj 100 MG/100 ML BAG IV.CONT PRN (05:37)
[2018-01-18] MEDS ORDERED: Propofol 1000 mg/100 ml Inj 1,000 MG/100 ML BOTTLE IV.CONT PRN (06:55)
--- NOTE | 2018-01-18 07:09 | P.PNCC ---
Subjective Subjective Remarks/Hospital Course: Mr. Cheung is a 82-year-old male with bladder cancer, thoracic and abdominal aortic aneurysm, Bronchiectasis, Restrictive lung disease, COPD, on 2L of supplemental O2, history of congestive heart failure, Hyperlipidemia, HTN who recently underwent recent cystoscopy with meatal dilation about 4 days ago. According to Dr. 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 He underwent laser ablation of the tumor masses with biopsy along with laser lithotripsy and extraction of the right ureteral calculus. Bilateral stents were placed. Patient came to the ER today with symptoms of UTI and sepsis, altered mental status. UA showed evidence of UTI. Patient was started on Rocephin and admitted to hospitalist service. Over the course of the day patient clinically started deteriorating hypotensive with worsening encephalopathy hardly responsive. Patient was transferred to the ICU and critical care medicine was consulted. I evaluated the patient in the ICU he is very lethargic encephalopathy. Currently received 2 L normal saline bolus and had been started on Levophed currently at 12 mcg/min. Despite this patient is hypotensive. Initial ABG showed a pH of 7.25 PCO2 50 base excess -5 now slightly worse with pH of 7.23 PCO2 52. Due to severe sepsis and metabolic acidosis patient is not a candidate for BiPAP. WBC count of on admission was 14 with left shift now has worsened to 20.4. Initial lactic acid was 2,2 repeat lactic acid is pending at this time. Patient previously was sent home with indwelling Prince by Dr. Cabrera , he removed the Prince today. Patient has been oliguric and in renal failure. Will replace the Prince for strict hourly intake output SUBJ 01/17: Remains critical intubated sedated. Blood cultures all bottles growing gram-negative rods. Currently on Zosyn. Creatinine has worsened to 3, potassium is 6.2. Urine output has been marginal 10-15 mL/h. CVP is only 9. Fluid challenge with 1 L normal saline bolus and maintenance fluid 100 mL/h. Nephrology consulted, CMP at noon. Treatment for hyperkalemia ordered with IV insulin followed by dextrose, calcium, bicarb, Kayexalate and breathing treatments. 01/18: Remains critical, remains in multiorgan failure. Started on Lasix by nephrology yesterday urine output approximately 1 L, worsening BUN/creatinine 66 /3.74. Will discuss with nephrology regarding dialysis though there is no acute indication. WBC count slightly improved to 15.2. Patient developed A. fib with RVR yesterday, started on Cardizem infusion after bolus. Will DC Lovenox for DVT prophylaxis and start on IV heparin for persistent A. fib. Objective Vital Signs / I&O: Vital Signs 01/17/18 07:00 01/17/18 08:00 01/17/18 08:03 Temperature Pulse Rate 65 68 67 Respiratory Rate 22 21 19 Blood Pressure 139/63 132/66 Pulse Oximetry 100 99 01/17/18 12:00 01/17/18 12:04 01/17/18 16:00 Temperature 98.5 F 98.9 F Pulse Rate 68 70 70 Respiratory Rate 21 19 18 Blood Pressure 132/66 162/73 H Pulse Oximetry 99 99 99 01/17/18 16:52 01/17/18 19:00 01/17/18 19:40 Temperature Pulse Rate 73 100 H Respiratory Rate 20 22 22 Blood Pressure Pulse Oximetry 100 100 100 01/17/18 19:42 01/17/18 20:00 01/17/18 21:00 Temperature 99.1 F Pulse Rate 96 H 95 H 97 H Respiratory Rate 22 22 21 Blood Pressure 176/75 H Pulse Oximetry 100 100 01/17/18 22:00 01/17/18 23:00 01/17/18 23:16 Temperature Pulse Rate 99 H 89 95 H Respiratory Rate 21 20 20 Blood Pressure 158/94 H Pulse Oximetry 100 99 01/17/18 23:17 01/18/18 00:00 01/18/18 00:01 Temperature Pulse Rate 92 H 97 H Respiratory Rate 21 20 20 Blood Pressure 97/61 L 97/61 L Pulse Oximetry 100 100 100 01/18/18 01:00 01/18/18 02:00 01/18/18 03:00 Temperature Pulse Rate 86 87 83 Respiratory Rate 20 18 19 Blood Pressure 115/61 Pulse Oximetry 100 100 100 01/18/18 04:00 01/18/18 04:17 01/18/18 05:00 Temperature Pulse Rate 83 82 81 Respiratory Rate 19 20 19 Blood Pressure 121/81 114/61 Pulse Oximetry 100 100 100 Intake & Output 01/17/18 01/17/18 01/18/18 06:59 18:59 06:59 Intake Total 1100 / 1100 813 / 813 214 / 2148 Output Total 100 / 100 600 / 600 300 / 300 Balance 1000 / 1000 213 / 213 1848 / 1848 Weight 93 kg 92.8 kg Intake: IV 1100 / 1100 308 / 308 214 / 2148 Versed Inj 100 mg In 100 ml @ 2 98 / 98 98 / 98 MG/HR 2 mls/hr IV.CONT TITRATE PRN Rx#:[id number] NS Inj 1,000 ML @ 100 mls/hr IV 1999 / 1999 .CONT .Q10H [facility] Rx#:[id number] Calcium Chloride Inj 1 GM In NS 110 / 110 Inj 100 ML @ 110 mls/hr IV.SIG ONCE ONE Rx#:[id number] Zosyn 3.375 GM Premix 50 ML @ 100 / 100 100 / 100 50 / 50 100 mls/hr IV.SIG Q6H [facility] Rx#: [id number] NS Inj 2,000 ML @ As Directed 1000 / 1000 IV.SIG ONCE ONE Rx#:[id number] Tube Feeding 305 / 305 Water Bolus Amount 200 / 200 Output: Urine Amount (Catheter) 100 / 100 600 / 600 300 / 300 Indwelling Urethral Catheter 100 / 100 600 / 600 300 / 300 Result Diagrams: 01/18/18 03:00 01/18/18 03:00 Objective Remarks: GENERAL: Elderly 82-year-old male who is encephalopathic currently intubated on Versed infusion SKIN: Poorly perfused HEENT: Atraumatic. Normocephalic. Pupils equal and round. No scleral icterus. No injection or drainage, edentulous. Intubated NECK: Trachea midline. No JVD. CARDIO: Atrial fibrillation rate controlled. Left upper chest pacemaker in place. RESP: Air entry equal bilaterally with bilateral crackles. No wheezes or rhonchi ABD: +BS, soft, non-tender, nondistended. Bilateral flank tenderness on deep palpation EXT: Extremities without clubbing, cyanosis, or edema. Poorly perfused NEURO: Intubated sedated with Versed infusion. Moves extremities weakly. Did not follow commands while on sedation Assessment and Plan - Assessment and Plan Plan: ASSESSMENT: Septic shock Gram-negative bacteremia Acute metabolic encephalopathy Acute hypoxemic respiratory failure UTI present on admission Lactic acidosis Acute kidney failure, Oliguria New onset atrial fibrillation with RVR Hyperkalemia-resolved History of congestive heart failure History of bladder cancer History meatal stenosis Status post recent bilateral ureteroscopy suspicious for recurrent urothelial cancer involving both ureteral orifices. Status post recent right ureteroscopy with laser lithotripsy of distal ureteral calculus Status post bilateral ureteral stent placement AAA/Thoracic aortic aneurysm Bronchiectasis/Restrictive lung disease/COPD, chronically on 2L of supplemental O2 CHF Hyperlipidemia HTN PLAN: NEURO: -Discontinue Versed infusion, start propofol for sedation and vent synchrony -Altered mental status/encephalopathy secondary to metabolic encephalopathy and severe sepsis -Start sedation vacation today RESP: -Emergently intubated and placed on mechanical ventilation for worsening metabolic acidosis altered mental status and hypoxia -PRVC/AC, Ventilator bundle -DuoNeb every 6 hours scheduled and as needed -SBT starting today CV: -Developed A. fib with RVR 01/17/2018. Started on Cardizem bolus and infusion -Currently rate controlled but remains in A. fib, start IV heparin -s/p Normal saline IV fluids 4L bolus since ICU admission and currently on normal saline maintenance fluid -Started on Lasix 40 mg 3 times daily by nephrology. I will discontinue IV fluids. -Levophed to keep map above 65 currently weaned off Levophed and vasopressin -2D echo 07/24/17: Estimated EF 45-50%, abnormal LV diastolic function, mild to moderate AR GI: -Tube feeds with Nepro, IV famotidine -Bowel regimen : -Monitor renal function closely. Prince catheter. Patient's previous indwelling catheter was removed by Dr. Feliciano 01/16/18 -Urology Dr. Cabrera is following -Nephrology Dr. Duarte following for for worsening oliguric renal failure creatinine now 3.7 -Started on Lasix 40 mg IV 3 times daily. Patient may need hemodialysis -CT of abdomen pelvis on admission showed bilateral ureteral stents are in place and there is mild distention of the collecting systems bilaterally. ID: -Antibiotics Zosyn renally dosed, received vancomycin 1 dose -Blood urine and sputum cultures. Blood culture growing gram-negative rods and 3 out of 4 bottles-pseudomonas growing -ID consulted -urine culture GNR HEME: -Monitor CBC, coags ENDO: -Hyperkalemia treatment with IV insulin, IV bicarb, IV calcium, breathing treatment and Kayexalate -Repeat CMP in am PROPH: -Bilateral lower extremity SCDs. IV Heparin/famotidine LINES: -Right IJ central line placed 01/16/2018. Respiratory therapist placed art line 01/16/18 CC time 35 min excluding procedures Patient remains critically ill with multiorgan failure with severe sepsis, worsening renal failure, respiratory failure, and atrial fibrillation with RVR. His prognosis is guarded. I have been updating family daily. Patient may need to be started on hemodialysis
[2018-01-18] MEDS: Senna/Docusate Sodium 8.6/50 MG Tablet PO SCH ×2 (08:05→23:56)
[2018-01-18] MEDS: Famotidine PF Inj 20 MG/2 ML Vial IV.PUSH SCH ×2 (08:05→23:56)
[2018-01-18] MEDS: Heparin Drip 25,000 UNIT/250 ML BAG IV.CONT PRN (08:06)
[2018-01-18] MEDS: Chlorhexidine 0.12% Oral Kit 15 ML UDC OROPHARYNG SCH ×2 (08:06→20:00)
--- NOTE | 2018-01-18 08:44 | P.DIET ---
Nutritional Evaluation Type of nutrition evaluation: initial Nutrition consult regarding: Tube Feeding Objective - Diagnosis UTI, Dehydration, elevated troponin - Objective % IBW: 108 (IBW: 81kg) Body Weight Used for Calculations: IBW Energy Needs - Lower Range (kCal/kg): 25 Energy Needs - Upper Range (kCal/kg): 30 Lower Limit kCal/kg (kCals): 2,025 Upper Limit kCal/kg (kCals): 2,430 Lower Limit Protein Factor (Grams per Kg): 1 Upper Limit Protein Factor (Grams per Kg): 1.2 Lower Protein Needs (Protein): 87 Upper Protein Needs (Protein): 105 Dietitian Reviewed in Medical Record: Curent medications, Intake & Output, Labs , Medical history, Tube feeding Diet Order: TF only Objective Comments: PMH: bladder cancer, thoracic and abdominal aortic aneurysm, Bronchiectasis, Restrictive lung disease, COPD, CHF, Hyperlipidemia, HTN Meds include: Lipitor, Coreg, Lasix, Propofol to start today Labs include: BUN 66, Cr 3.74, eGFR 16 UOP: 1950mls Assessment Assessment: Pt is at high nutritional risk r/t dx and current clinical status. Pt intubated with propofol to start. Reviewed MD notes, pt may need HD r/t BECK. TF per MD of Nepro with goal rate 45ml/hr will provide 1944kcals, 87.5gms protein and 785mls free water. This is adequate at this time to meet pt's nutritional needs ( propofol adds kcals when running). If pt is to have HD, recommend increasing TF to 50ml/hr to provide 2160kcals, 97.2gms protein and 872mls free water. Will monitor TF tolerance, clinical course. Recommendations: TF Nepro with goal rate 45ml/hr If pt to have HD, recommend goal rate 50ml/hr Will monitor clinical course.
[2018-01-18 08:50] LABS: INR 1.2 Ratio; Prothrombin Time 11.9 sec (9.8-11.6)
--- NOTE | 2018-01-18 09:42 | P.PNNP ---
Subjective Interval history: Patient remain on the vent. and sedated. Physical Exam Vital signs: Vital Signs 01/17/18 12:00 01/17/18 12:04 01/17/18 16:00 Temperature 98.5 F 98.9 F Pulse Rate 68 70 70 Respiratory Rate 21 19 18 Blood Pressure 132/66 162/73 H Pulse Oximetry 99 99 99 01/17/18 16:52 01/17/18 19:00 01/17/18 19:40 Temperature Pulse Rate 73 100 H Respiratory Rate 20 22 22 Blood Pressure Pulse Oximetry 100 100 100 01/17/18 19:42 01/17/18 20:00 01/17/18 21:00 Temperature 99.1 F Pulse Rate 96 H 95 H 97 H Respiratory Rate 22 22 21 Blood Pressure 176/75 H Pulse Oximetry 100 100 01/17/18 22:00 01/17/18 23:00 01/17/18 23:16 Temperature Pulse Rate 99 H 89 95 H Respiratory Rate 21 20 20 Blood Pressure 158/94 H Pulse Oximetry 100 99 01/17/18 23:17 01/18/18 00:00 01/18/18 00:01 Temperature Pulse Rate 92 H 97 H Respiratory Rate 21 20 20 Blood Pressure 97/61 L 97/61 L Pulse Oximetry 100 100 100 01/18/18 01:00 01/18/18 02:00 01/18/18 03:00 Temperature Pulse Rate 86 87 83 Respiratory Rate 20 18 19 Blood Pressure 115/61 Pulse Oximetry 100 100 100 01/18/18 04:00 01/18/18 04:17 01/18/18 05:00 Temperature Pulse Rate 83 82 81 Respiratory Rate 19 20 19 Blood Pressure 121/81 114/61 Pulse Oximetry 100 100 100 01/18/18 07:27 Temperature Pulse Rate 75 Respiratory Rate 19 Blood Pressure Pulse Oximetry 100 Intake & Output 01/17/18 01/18/18 01/18/18 18:59 06:59 18:59 Intake Total 813 / 813 2757 / 2757 Output Total 600 / 600 1350 / 1350 Balance 213 / 213 1407 / 1407 Weight 92.8 kg Intake: IV 308 / 308 2198 / 2198 Versed Inj 100 mg In 100 ml @ 2 98 / 98 98 / 98 MG/HR 2 mls/hr IV.CONT TITRATE PRN Rx#:[id number] NS Inj 1,000 ML @ 100 mls/hr IV 1999 / 1999 .CONT .Q10H [facility] Rx#:[id number] Calcium Chloride Inj 1 GM In NS 110 / 110 Inj 100 ML @ 110 mls/hr IV.SIG ONCE ONE Rx#:[id number] Zosyn 3.375 GM Premix 50 ML @ 100 / 100 100 / 100 100 mls/hr IV.SIG Q6H [facility] Rx#: [id number] Tube Feeding 305 / 305 459 / 459 Water Bolus Amount 200 / 200 100 / 100 Output: Urine Amount (Catheter) 600 / 600 1350 / 1350 Indwelling Urethral Catheter 600 / 600 1350 / 1350 Narrative: GENERAL: Orally intubated on mild sedation. SKIN: Warm and dry. NECK: Supple, trachea midline. No JVD. CARDIOVASCULAR: Regular rate and rhythm without murmurs, gallops, or rubs. Right IJ central line. RESPIRATORY: Breath sounds equal bilaterally. No accessory muscle use. GASTROINTESTINAL: Abdomen soft, non-tender, nondistended. OG tube. GENITOURINARY: Indwelling Prince catheter, minimal light yellow urine. MUSCULOSKELETAL: No cyanosis, or edema. - Urinary Catheter Management Indwelling Urethral Catheter Cath placed during this visit: yes Reason for continuing: Chronic Urinary Retention Insertion date: 01/16/18 Insertion time: 17:30 Assessment and Plan - Assessment (1) Acute kidney injury Code(s): N17.9 - Acute kidney failure, unspecified Status: Acute Plan: Patient with Acute kidney injury and Hyperkalemia, Urine out put is low. Most likely has ATN due to hypotension, now BP is better, started on Lasix, K is now normalized. Creatinine is still increasing, Follow the urine out put and BMP. Avoid Nephrotoxins. May need HD. (2) Sepsis Code(s): A41.9 - Sepsis, unspecified organism Status: Acute Plan: Blood cultures positive for gram negative rods, sensitivity pending. On Zosyn. (3) Acute UTI Code(s): N39.0 - Urinary tract infection, site not specified Status: Acute Plan: Has received Rocephin. Culture is pending. (4) Respiratory failure Code(s): J96.90 - Respiratory failure, unspecified, unspecified whether with hypoxia or hypercapnia Status: Acute Plan: Patient is intubated on very mild sedation.
--- NOTE | 2018-01-18 14:47 | P.CONID ---
History of Present Illness Service: ID Consult date: 01/18/18 Requesting Physician: Agatha Uribe Reason for Consult: Pseudomonas bactermia, sepsis, s/p urological procedures Primary Care Provider: Pop Escobar MD Chief Complaint: AMS, septic shock History of Present Illness: 82 yo male with bladder cancer sp endoscopical bladder procedures about 2 weeks ago jenkins was removed on and by night he became vilently sick: with fever chills, nasea=, vomiting He presented afebrile but with significant leukocytosis of 20 K with 53% of bands On presentaton pt was lethargic, encephalopathic, hypotensive He was intubated, placed on vent and started on pressors He is no longer on pressors He was in ARF, but today his UOP is adequate He was started on zosyn and improved He is growing PSAE in 4/4 bottles he has pacemaker Review of Systems All other systems reviewed negative except as stated in HPI, unobtainable due to endotracheal tube PMFSH - History History Provided By: Patient - Medical History Medical History: Medical History (Last Reviewed 01/18/18 @ 17:55 by Cristal Foster MD) Bladder cancer COPD (chronic obstructive pulmonary disease) COPD (chronic obstructive pulmonary disease) with emphysema CPAP (continuous positive airway pressure) dependence Dehydration Enlarged prostate History of cardiac pacemaker in situ Hx of cardiac arrhythmia Kidney stone on right side Tingling of both feet - Surgical History Surgical History: Surgical History (Last Reviewed 01/18/18 @ 17:55 by Cristal Foster MD) Hx of bilateral cataract extraction Hx of cervical spine surgery - Family History Family History: Family History (Last Updated 01/18/18 @ 17:55 by Cristal Foster MD) Other Family history non-contributory - Social History I have reviewed the patient's Social History: Yes - Tobacco History Second Hand Smoke Exposure: No Tobacco Use In Past 30 Days: No Smoking Status: Former smoker Tobacco Type: Cigarettes - Alcohol History How Often Do You Have a Drink Containing Alcohol: Never - Substance Use History Substance History: No History of Abuse - Travel History Recent Travel in the [place] Within the Last 8 Weeks: No Recent Travel Out of the Country Within the Last 8 Weeks: No - Immunization History Tetanus Immunization: Unsure Medications and Allergies Active Medications: Active Medications Acetaminophen (Tylenol) 650 mg PO Q4H PRN PRN Reason: Temp > 100.4 Last Admin: 01/18/18 05:26 Dose: 650 mg Al Hydroxide/Mg Hydroxide (Milk Of Magn[place]s Liq) 30 ml PO Q12H PRN PRN Reason: Mild Constipation Albuterol (Duoneb Neb (Prn)) 1 ampul NEB Q4HR NEB PRN PRN Reason: SOB/wheezing Albuterol (Duoneb Neb (Nisha)) 1 ampul NEB Q6HR NEB [facility] Last Admin: 01/18/18 07:26 Dose: 1 ampul Amlodipine Besylate (Norvasc) 10 mg PO DAILY [facility] Last Admin: 01/16/18 09:19 Dose: 10 mg Atorvastatin Calcium (Lipitor) 10 mg PO DAILY [facility] Last Admin: 01/18/18 08:05 Dose: 10 mg Bisacodyl (Dulcolax Supp) 10 mg RECTAL DAILY PRN PRN Reason: SEVERE CONSITIPATION Carvedilol (Coreg) 6.25 mg PO BID [facility] Last Admin: 01/16/18 09:18 Dose: 6.25 mg Chlorhexidine Gluconate (Peridex 0.12% Oral Kit) 15 ml OROPHARYNG BID@0800, 2000 [facility] Last Admin: 01/18/18 08:06 Dose: 15 ml Escitalopram Oxalate (Lexapro) 10 mg PO DAILY [facility] Last Admin: 01/16/18 09:18 Dose: 10 mg Famotidine (Pepcid Pf Inj) 10 mg IV.PUSH Q12HR [facility] Last Admin: 01/18/18 08:05 Dose: 10 mg Furosemide (Lasix Inj) 40 mg IV.PUSH TID [facility] Last Admin: 01/18/18 13:38 Dose: 40 mg Gabapentin (Neurontin) 300 mg PO BID [facility] Last Admin: 01/16/18 09:19 Dose: 300 mg Piperacillin/Tazobactam/Dextrose (Zosyn 3.375 Gm Premix) 50 mls @ 100 mls/hr IV.SIG Q6H [facility] Last Admin: 01/18/18 11:17 Dose: 100 mls/hr Vasopressin 40 unit/ Sodium (Chloride) 100 mls @ 1.5 mls/hr IV.CONT TITRATE PRN ; Protocol PRN Reason: Per Protocol Last Titration: 01/17/18 04:46 Dose: 0 units/min, 0 mls/hr Diltiazem HCl 125 mg/ Sodium (Chloride) 125 mls @ 5 mls/hr IV.CONT TITRATE PRN ; Protocol PRN Reason: Per Protocol Last Admin: 01/17/18 18:17 Dose: 5 mg/hr, 5 mls/hr Heparin Sodium/Dextrose (Heparin/D5w 25,000 U/250 Ml) 25,000 unit in 250 mls @ 10 mls/hr IV.CONT TITRATE PRN; Protocol PRN Reason: Per Protocol Last Admin: 01/18/18 08:06 Dose: 1,000 units/hr, 10 mls/hr Propofol (Diprivan 1000 Mg/100 Ml Inj) 1,000 mg in 100 mls @ 2.784 mls/hr IV.CONT TITRATE PRN; Protocol PRN Reason: Per Protocol Isosorbide Mononitrate (Imdur) 30 mg PO DAILY [facility] Last Admin: 01/16/18 09:18 Dose: 30 mg Lactulose (Lactulose Liq) 30 ml PO DAILY PRN PRN Reason: SEVERE CONSITIPATION Lactulose (Lactulose Liq) 30 ml PO BID [facility] Last Admin: 01/18/18 08:05 Dose: 30 ml Miscellaneous Medication () 1 each OROPHARYNG 0000,0400,1200,1600 [facility] Last Admin: 01/18/18 11:17 Dose: 1 each Ondansetron HCl (Zofran Inj) 4 mg IV.PUSH Q6H PRN PRN Reason: NAUSEA OR VOMITING Senna/Docusate Sodium (Bel-Colace) 1 tab PO BID [facility] Last Admin: 01/18/18 08:05 Dose: 1 tab Sennosides (Senokot) 17.2 mg PO Q12H PRN PRN Reason: Moderate Constipation Sodium Chloride (Ns Flush) 2 ml IV.FLUSH BID [facility] Last Admin: 01/18/18 08:06 Dose: Not Given Sodium Chloride (Ns Flush) 2 ml IV.FLUSH PRN PRN PRN Reason: FLUSH AFTER USING IV ACCESS Tamsulosin HCl (Flomax) 0.4 mg PO HS [facility] Last Admin: 01/17/18 20:30 Dose: 0.4 mg Allergies Allergy/AdvReac Type Severity Reaction Status Date / Time No Known Allergies Allergy Verified 01/02/18 12:33 Home Medications Medication Instructions Recorded Confirmed Type albuterol sulfate 2.5 mg INHALATION QID PRN 08/21/17 01/16/18 History carvedilol 6.25 mg PO BID 08/21/17 01/16/18 History escitalopram oxalate 10 mg PO DAILY 08/21/17 01/16/18 History gabapentin 300 mg PO BID 08/21/17 01/16/18 History naproxen 500 mg PO BID PRN 08/21/17 01/16/18 History potassium chloride 10 meq PO DAILY 08/21/17 01/16/18 History tamsulosin 0.4 mg PO HS 08/21/17 01/16/18 History furosemide 20 mg PO DAILY 08/25/17 01/16/18 History atorvastatin 10 mg PO DAILY 01/02/18 01/16/18 History isosorbide mononitrate 30 mg PO DAILY 01/02/18 01/16/18 History Oxygen 2 l INHALATION HS 01/05/18 01/16/18 History amlodipine 10 mg PO DAILY 01/05/18 01/16/18 History clonidine-chlorthalidone 1 tab PO BID 01/05/18 01/16/18 History Exam Vital signs: Vital Signs 01/17/18 16:00 01/17/18 16:52 01/17/18 19:00 Temperature 98.9 F Pulse Rate 70 73 100 H Respiratory Rate 18 20 22 Blood Pressure 162/73 H Pulse Oximetry 99 100 100 01/17/18 19:40 01/17/18 19:42 01/17/18 20:00 Temperature 99.1 F Pulse Rate 96 H 95 H Respiratory Rate 22 22 22 Blood Pressure 176/75 H Pulse Oximetry 100 100 01/17/18 21:00 01/17/18 22:00 01/17/18 23:00 Temperature Pulse Rate 97 H 99 H 89 Respiratory Rate 21 21 20 Blood Pressure 158/94 H Pulse Oximetry 100 100 99 01/17/18 23:16 01/17/18 23:17 01/18/18 00:00 Temperature Pulse Rate 95 H 92 H Respiratory Rate 20 21 20 Blood Pressure 97/61 L Pulse Oximetry 100 100 01/18/18 00:01 01/18/18 01:00 01/18/18 02:00 Temperature Pulse Rate 97 H 86 87 Respiratory Rate 20 20 18 Blood Pressure 97/61 L 115/61 Pulse Oximetry 100 100 100 01/18/18 03:00 01/18/18 04:00 01/18/18 04:17 Temperature Pulse Rate 83 83 82 Respiratory Rate 19 19 20 Blood Pressure 121/81 Pulse Oximetry 100 100 100 01/18/18 05:00 01/18/18 07:27 01/18/18 08:00 Temperature 98.9 F Pulse Rate 81 75 75 Respiratory Rate 19 19 18 Blood Pressure 114/61 106/56 L Pulse Oximetry 100 100 99 01/18/18 11:35 01/18/18 12:00 01/18/18 14:23 Temperature 98.4 F Pulse Rate 71 Respiratory Rate 18 18 21 Blood Pressure 110/56 L Pulse Oximetry 100 99 100 Intake & Output 01/17/18 01/18/18 01/18/18 18:59 06:59 18:59 Intake Total 813 / 813 2757 / 2757 Output Total 600 / 600 1350 / 1350 Balance 213 / 213 1407 / 1407 Weight 92.8 kg Intake: IV 308 / 308 2198 / 2198 Versed Inj 100 mg In 100 ml @ 2 98 / 98 98 / 98 MG/HR 2 mls/hr IV.CONT TITRATE PRN Rx#:[id number] NS Inj 1,000 ML @ 100 mls/hr IV 1999 / 1999 .CONT .Q10H [facility] Rx#:[id number] Calcium Chloride Inj 1 GM In NS 110 / 110 Inj 100 ML @ 110 mls/hr IV.SIG ONCE ONE Rx#:[id number] Zosyn 3.375 GM Premix 50 ML @ 100 / 100 100 / 100 100 mls/hr IV.SIG Q6H [facility] Rx#: [id number] Tube Feeding 305 / 305 459 / 459 Water Bolus Amount 200 / 200 100 / 100 Output: Urine Amount (Catheter) 600 / 600 1350 / 1350 Indwelling Urethral Catheter 600 / 600 1350 / 1350 - Constitutional no acute distress, average body habitus - Routine HEENT Exam Head: Present: normocephalic, atraumatic Eye: Present: EOMI, PERRL ENT: Present: mucous membranes moist, mucous membranes dry - Routine Neck Exam Present: supple. Absent: JVD - Routine Respiratory Exam Present: patient mechanically ventilated, CTA bilaterally - Routine Cardiovascular Exam Present: RRR, S1, S2. Absent: murmur, gallop, rubs - Routine Abdominal Exam Present: soft, normoactive bowel sounds - Routine Extremities Exam Present: normal capillary refill. Absent: cyanosis, clubbing, edema - Routine Skin Exam Present: dry, warm. Absent: rash - Routine Neurological Exam seated - Routine Psychiatric Exam Present: unable to assess Results - Labs CBC & Chem 7: 01/18/18 03:00 01/18/18 03:00 Labs: Laboratory Results - last 24 hr 01/17/18 01/18/18 01/18/18 14:30 03:00 03:00 WBC 15.2 H RBC 3.93 L Hgb 11.5 L Hct 35.1 L MCV 89.3 MCH 29.4 MCHC 32.9 RDW 14.7 Plt Count 122 L MPV 8.6 PT INR APTT Sodium 145 Potassium 4.0 D Chloride 113 H Carbon Dioxide 22.5 Anion Gap 10 BUN 66 H Creatinine 3.74 H Estimated GFR 16 L Random Glucose 152 H Calcium 7.3 L* Calcium Adj for Albumin 7.9 L Phosphorus 3.9 Magnesium 1.9 Total Bilirubin 0.5 AST 48 H ALT 64 Alkaline Phosphatase 63 Total Protein 6.0 L Albumin 1.9 L Urine Osmolality 356 01/18/18 01/18/18 07:50 13:25 WBC RBC Hgb Hct MCV MCH MCHC RDW Plt Count MPV PT 11.9 H INR 1.2 APTT 47.0 H 69.3 H D Sodium Potassium Chloride Carbon Dioxide Anion Gap BUN Creatinine Estimated GFR Random Glucose Calcium Calcium Adj for Albumin Phosphorus Magnesium Total Bilirubin AST ALT Alkaline Phosphatase Total Protein Albumin Urine Osmolality - Imaging Impressions Chest X-Ray 01/18/18 06:00 CONCLUSION: Stable chest x-ray with mild bibasilar opacity. Assessment and Plan - Plan PSAE sepsis Septic shock with multi organ failure UTI, complicated , following urological procedure Acute VDRF ARF - improving , no longer oliguric cont abx Repeat blood clutures further abx rec's per final culture results
[2018-01-18] MEDS: dilTIAZem Inj 125 MG in Sodium Chlor 0.9% Inj 100 ML IV.CONT PRN (15:21)
[2018-01-19] MEDS: Piperacil/Tazo 3.375 GM Premix 50 ML IV.SIG SCH ×3 (04:08→16:41)
[2018-01-19] MEDS: Oral Hygiene Kit OROPHARYNG SCH ×4 (04:09→16:41)
[2018-01-19] MEDS: Heparin Drip 25,000 UNIT/250 ML BAG IV.CONT PRN (04:13)
[2018-01-19 05:23] LABS: Hematocrit 36.8 % (39.0-51.0); Hemoglobin 12.4 gm/dL (13.0-17.0); Mean Corpuscular HGB Conc 33.6 % (32.0-36.0); Mean Corpuscular Hemoglobin 29.6 pg (27.0-34.0); Mean Platelet Volume 9.1 fL (7.0-11.0); Platelet Count 127 th/mm3 (150-450); Red Blood Count 4.18 mil/mm3 (4.50-5.90); Red Cell Distribution Width 14.8 % (11.6-17.2); White Blood Count 14.9 th/mm3 (4.0-11.0)
[2018-01-19 05:40] LABS: Alanine Aminotransferase 85 U/L (12-78); Albumin 1.8 g/dL (3.4-5.0); Anion Gap 9 meq/L (5-15); Aspartate Aminotransferase 72 U/L (15-37); Blood Urea Nitrogen 76 mg/dL (7-18); Calcium 8.4 mg/dL (8.5-10.1); Carbon Dioxide 25.3 meq/L (21.0-32.0); Chloride 111 meq/L (98-107); Glomerular Filtration Rate 15 mL/min (>89); Glucose,Random 172 mg/dL (74-106); Magnesium 2.2 mg/dL (1.5-2.5); Potassium 3.4 meq/L (3.5-5.1); Sodium 145 meq/L (136-145)
[2018-01-19 05:43] LABS: Alkaline Phosphatase 197 U/L (45-117); Total Protein 6.7 g/dL (6.4-8.2)
[2018-01-19] MEDS: Chlorhexidine 0.12% Oral Kit 15 ML UDC OROPHARYNG SCH ×2 (08:07→20:53)
[2018-01-19] MEDS: Senna/Docusate Sodium 8.6/50 MG Tablet PO SCH ×2 (08:08→20:54)
[2018-01-19] MEDS: Famotidine PF Inj 20 MG/2 ML Vial IV.PUSH SCH ×2 (08:08→20:53)
--- NOTE | 2018-01-19 10:35 | P.PNCC ---
Subjective Subjective Remarks/Hospital Course: Mr. Cheung is a 82-year-old male with bladder cancer, thoracic and abdominal aortic aneurysm, Bronchiectasis, Restrictive lung disease, COPD, on 2L of supplemental O2, history of congestive heart failure, Hyperlipidemia, HTN who recently underwent recent cystoscopy with meatal dilation about 4 days ago. According to Dr. 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 He underwent laser ablation of the tumor masses with biopsy along with laser lithotripsy and extraction of the right ureteral calculus. Bilateral stents were placed. Patient came to the ER today with symptoms of UTI and sepsis, altered mental status. UA showed evidence of UTI. Patient was started on Rocephin and admitted to hospitalist service. Over the course of the day patient clinically started deteriorating hypotensive with worsening encephalopathy hardly responsive. Patient was transferred to the ICU and critical care medicine was consulted. I evaluated the patient in the ICU he is very lethargic encephalopathy. Currently received 2 L normal saline bolus and had been started on Levophed currently at 12 mcg/min. Despite this patient is hypotensive. Initial ABG showed a pH of 7.25 PCO2 50 base excess -5 now slightly worse with pH of 7.23 PCO2 52. Due to severe sepsis and metabolic acidosis patient is not a candidate for BiPAP. WBC count of on admission was 14 with left shift now has worsened to 20.4. Initial lactic acid was 2,2 repeat lactic acid is pending at this time. Patient previously was sent home with indwelling Prince by Dr. Cabrera , he removed the Prince today. Patient has been oliguric and in renal failure. Will replace the Prince for strict hourly intake output SUBJ 01/17: Remains critical intubated sedated. Blood cultures all bottles growing gram-negative rods. Currently on Zosyn. Creatinine has worsened to 3, potassium is 6.2. Urine output has been marginal 10-15 mL/h. CVP is only 9. Fluid challenge with 1 L normal saline bolus and maintenance fluid 100 mL/h. Nephrology consulted, CMP at noon. Treatment for hyperkalemia ordered with IV insulin followed by dextrose, calcium, bicarb, Kayexalate and breathing treatments. 01/18: Remains critical, remains in multiorgan failure. Started on Lasix by nephrology yesterday urine output approximately 1 L, worsening BUN/creatinine 66 /3.74. Will discuss with nephrology regarding dialysis though there is no acute indication. WBC count slightly improved to 15.2. Patient developed A. fib with RVR yesterday, started on Cardizem infusion after bolus. Will DC Lovenox for DVT prophylaxis and start on IV heparin for persistent A. fib. 01/19: Patient continues on heparin and Cardizem infusion. WBC count slightly improved. Urine output increased 2 L in 12 hours last evening. Patient continues in A. fib but rate controlled will transition to p.o.. Objective Vital Signs / I&O: Vital Signs 01/18/18 11:35 01/18/18 12:00 01/18/18 14:23 Temperature 98.4 F Pulse Rate 71 Respiratory Rate 18 18 21 Blood Pressure 110/56 L Pulse Oximetry 100 99 100 01/18/18 15:00 01/18/18 16:00 01/18/18 19:00 Temperature 98.5 F 98.4 F Pulse Rate 66 75 79 Respiratory Rate 20 18 22 Blood Pressure 127/57 L 119/74 Pulse Oximetry 99 100 01/18/18 19:46 01/18/18 20:00 01/18/18 21:00 Temperature Pulse Rate 72 78 80 Respiratory Rate 22 22 23 Blood Pressure 135/71 129/69 Pulse Oximetry 100 100 100 01/18/18 22:00 01/18/18 23:00 01/19/18 00:00 Temperature Pulse Rate 78 72 79 Respiratory Rate 23 23 22 Blood Pressure 139/71 159/72 H 134/72 Pulse Oximetry 100 100 100 01/19/18 00:03 01/19/18 01:00 01/19/18 02:00 Temperature Pulse Rate 79 84 Respiratory Rate 21 23 23 Blood Pressure 162/72 H 187/87 H Pulse Oximetry 100 100 99 01/19/18 02:13 01/19/18 03:00 01/19/18 03:01 Temperature Pulse Rate 83 85 80 Respiratory Rate 23 24 23 Blood Pressure 185/82 H 202/84 H 187/79 H Pulse Oximetry 99 99 99 01/19/18 03:55 01/19/18 04:00 01/19/18 05:00 Temperature Pulse Rate 81 92 H 89 Respiratory Rate 22 22 25 H Blood Pressure 188/89 H 202/139 H Pulse Oximetry 100 100 99 01/19/18 05:02 01/19/18 06:00 01/19/18 07:00 Temperature Pulse Rate 89 77 81 Respiratory Rate 23 22 22 Blood Pressure 190/81 H 147/62 H 150/70 H Pulse Oximetry 99 99 100 01/19/18 08:00 01/19/18 08:32 Temperature 99.4 F Pulse Rate 76 84 Respiratory Rate 24 23 Blood Pressure 140/58 L Pulse Oximetry 100 100 Intake & Output 01/18/18 01/19/18 01/19/18 18:59 06:59 18:59 Intake Total 2249 / 2249 350 / 350 588 / 588 Output Total 1300 / 1300 200 / 200 2100 / 2100 Balance 949 / 949 150 / 150 -1512 / -1512 Weight 91.8 kg Intake: IV 1225 / 1225 350 / 350 Heparin/D5W 25,000 U/250 mL 25, 250 / 250 000 unit In 250 ml @ 1,000 UNITS/HR 10 mls/hr IV.CONT TITRATE PRN Rx#:[id number] NS Inj 1,000 ML @ 100 mls/hr IV 1000 / 1000 .CONT .Q10H [facility] Rx#:[id number] Cardizem Inj 125 MG In NS Inj 125 / 125 100 ML @ 5 MG/HR 5 mls/hr IV. CONT TITRATE PRN Rx#:[id number] Zosyn 3.375 GM Premix 50 ML @ 100 / 100 100 / 100 100 mls/hr IV.SIG Q6H [facility] Rx#: [id number] Tube Feeding 904 / 904 488 / 488 Water Bolus Amount 120 / 120 100 / 100 Output: Urine Amount (Catheter) 1300 / 1300 200 / 200 2100 / 2100 Indwelling Urethral Catheter 1300 / 1300 200 / 200 2100 / 2100 Other: Date of Last Bowel Movement 01/19/18 # Bowel Movements 2 Result Diagrams: 01/19/18 05:00 01/19/18 05:00 Objective Remarks: GENERAL: Elderly 82-year-old male who is encephalopathic currently intubated SKIN: Poorly perfused. Moderate bruising noted bilateral upper and lower extremities HEENT: Atraumatic. Normocephalic. Pupils equal and round. No scleral icterus. No injection or drainage, edentulous. Intubated NECK: Trachea midline. No JVD. CARDIO: Atrial fibrillation rate controlled. Left upper chest pacemaker in place. RESP: Air entry equal bilaterally with bilateral crackles. No wheezes or rhonchi ABD: +BS, soft, non-tender, nondistended. Bilateral flank tenderness on deep palpation EXT: Extremities without clubbing, cyanosis, or edema. Poorly perfused NEURO: Intubated, Versed discontinued 01/18 @9 AM. Moves extremities weakly. Did not follow commands while on sedation. 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 Status post recent right ureteroscopy with laser lithotripsy of distal ureteral calculus Status post bilateral ureteral stent placement AAA/Thoracic aortic aneurysm Bronchiectasis/Restrictive lung disease/COPD, chronically on 2L of supplemental O2 CHF Hyperlipidemia HTN PLAN: NEURO: -Versed discontinued 01/18 , currently patient very lethargic . May start propofol for sedation and vent synchrony -Altered mental status/encephalopathy secondary to metabolic encephalopathy and severe sepsis -Continue daily sedation vacation RESP: -Emergently intubated and placed on mechanical ventilation for worsening metabolic acidosis altered mental status and hypoxia -PRVC/AC, Ventilator bundle -DuoNeb every 6 hours scheduled and as needed -SBT starting today CV: -Developed A. fib with RVR 01/17/2018. Started on Cardizem bolus and infusion -Currently rate controlled but remains in A. fib, start IV heparin -s/p Normal saline IV fluids 4L bolus since ICU admission and currently on normal saline maintenance fluid -Started on Lasix 40 mg 3 times daily by nephrology. Diuresis 2 L in the last 12 hours overnight -Keep MAP > 65, Levophed and vasopressin discontinued 01/18 -2D echo 07/24/17: Estimated EF 45-50%, abnormal LV diastolic function, mild to moderate AR GI: -Tube feeds with Nepro, IV famotidine -Bowel regimen : -Monitor renal function closely. Prince catheter. Patient's previous indwelling catheter was removed by Dr. Feliciano 01/16/18 -Urology Dr. Cabrera is following -Nephrology Dr. Duarte following for for worsening oliguric renal failure creatinine now 3.7 -Started on Lasix 40 mg IV 3 times daily. Patient may need hemodialysis -CT of abdomen pelvis on admission showed bilateral ureteral stents are in place and there is mild distention of the collecting systems bilaterally. ID: -Antibiotics Zosyn renally dosed, received vancomycin 1 dose -Blood urine and sputum cultures. Blood culture growing gram-negative rods and 3 out of 4 bottles-pseudomonas growing -ID consulted-Dr. Foster following -urine culture Pseudomonas HEME: -Monitor CBC, coags ENDO: -Hyperkalemia treatment with IV insulin, IV bicarb, IV calcium, breathing treatment and Kayexalate -Repeat CMP in am PROPH: -Bilateral lower extremity SCDs. IV Heparin/famotidine LINES: -Right IJ central line placed 01/16/2018. Respiratory therapist placed art line 01/16/18 My billing statement This patient remains critically ill with one or more organ systems which are or may become a threat to life. I have spent in excess of 37 minutes discontinuously in the care and management of this patient. This time is exclusive of procedures, and includes, but is not limited to, evaluation of the patient, review of the medical record, discussions with family, consultants, nursing staff, or respiratory therapy, and documentation in the medical record. Discussed Condition With: [employer] at bedside
--- NOTE | 2018-01-19 11:54 | P.PNURO ---
Subjective Patient symptoms today: Events noted. Remains intubated Objective Vital Signs: Vital Signs 01/18/18 12:00 01/18/18 14:23 01/18/18 15:00 Temperature 98.4 F Pulse Rate 71 66 Respiratory Rate 18 21 20 Blood Pressure 110/56 L Pulse Oximetry 99 100 01/18/18 16:00 01/18/18 19:00 01/18/18 19:46 Temperature 98.5 F 98.4 F Pulse Rate 75 79 72 Respiratory Rate 18 22 22 Blood Pressure 127/57 L 119/74 Pulse Oximetry 99 100 100 01/18/18 20:00 01/18/18 21:00 01/18/18 22:00 Temperature Pulse Rate 78 80 78 Respiratory Rate 22 23 23 Blood Pressure 135/71 129/69 139/71 Pulse Oximetry 100 100 100 01/18/18 23:00 01/19/18 00:00 01/19/18 00:03 Temperature Pulse Rate 72 79 Respiratory Rate 23 22 21 Blood Pressure 159/72 H 134/72 Pulse Oximetry 100 100 100 01/19/18 01:00 01/19/18 02:00 01/19/18 02:13 Temperature Pulse Rate 79 84 83 Respiratory Rate 23 23 23 Blood Pressure 162/72 H 187/87 H 185/82 H Pulse Oximetry 100 99 99 01/19/18 03:00 01/19/18 03:01 01/19/18 03:55 Temperature Pulse Rate 85 80 81 Respiratory Rate 24 23 22 Blood Pressure 202/84 H 187/79 H Pulse Oximetry 99 99 100 01/19/18 04:00 01/19/18 05:00 01/19/18 05:02 Temperature Pulse Rate 92 H 89 89 Respiratory Rate 22 25 H 23 Blood Pressure 188/89 H 202/139 H 190/81 H Pulse Oximetry 100 99 99 01/19/18 06:00 01/19/18 07:00 01/19/18 08:00 Temperature 99.4 F Pulse Rate 77 81 76 Respiratory Rate 22 22 24 Blood Pressure 147/62 H 150/70 H 140/58 L Pulse Oximetry 99 100 100 01/19/18 08:32 Temperature Pulse Rate 84 Respiratory Rate 23 Blood Pressure Pulse Oximetry 100 Intake & Output 01/18/18 01/19/18 01/19/18 18:59 06:59 18:59 Intake Total 2249 / 2249 350 / 350 638 / 638 Output Total 1300 / 1300 200 / 200 2100 / 2100 Balance 949 / 949 150 / 150 -1462 / -1462 Weight 91.8 kg Intake: IV 1225 / 1225 350 / 350 50 / 50 Heparin/D5W 25,000 U/250 mL 25, 250 / 250 000 unit In 250 ml @ 1,000 UNITS/HR 10 mls/hr IV.CONT TITRATE PRN Rx#:[id number] NS Inj 1,000 ML @ 100 mls/hr IV 1000 / 1000 .CONT .Q10H [facility] Rx#:[id number] Cardizem Inj 125 MG In NS Inj 125 / 125 100 ML @ 5 MG/HR 5 mls/hr IV. CONT TITRATE PRN Rx#:[id number] Zosyn 3.375 GM Premix 50 ML @ 100 / 100 100 / 100 50 / 50 100 mls/hr IV.SIG Q6H [facility] Rx#: [id number] Tube Feeding 904 / 904 488 / 488 Water Bolus Amount 120 / 120 100 / 100 Output: Urine Amount (Catheter) 1300 / 1300 200 / 200 2100 / 2100 Indwelling Urethral Catheter 1300 / 1300 200 / 200 2100 / 2100 Other: Date of Last Bowel Movement 01/19/18 # Bowel Movements 2 Result Diagrams: 01/19/18 05:00 01/19/18 05:00 Other Results: Bladder not distended Prince catheter in place and draining clear yellow urine. Medications and IVs: Active Medications Generic Name Dose Route Start Last Admin Trade Name Freq PRN Reason Stop Dose Admin Acetaminophen 650 mg 01/16/18 08:02 01/18/18 05:26 Tylenol PO 650 mg Q4H PRN Administration Temp > 100.4 Al Hydroxide/Mg Hydroxide 30 ml 01/16/18 08:02 Milk Of Magnesia Liq PO Q12H PRN Mild Constipation Albuterol 1 ampul 01/16/18 11:12 Duoneb Neb (Prn) NEB Q4HR NEB PRN SOB/wheezing Albuterol 1 ampul 01/18/18 10:00 01/19/18 08:31 Duoneb Neb (Nisha) NEB 1 ampul Q6HR NEB NISHA Administration Amlodipine Besylate 10 mg 01/16/18 09:00 01/16/18 09:19 Norvasc PO 10 mg DAILY NISHA Administration Atorvastatin Calcium 10 mg 01/16/18 09:00 01/19/18 08:08 Lipitor PO 10 mg DAILY NISHA Administration Bisacodyl 10 mg 01/16/18 08:02 Dulcolax Supp RECTAL DAILY PRN SEVERE CONSITIPATION Carvedilol 6.25 mg 01/16/18 09:00 01/16/18 09:18 Coreg PO 6.25 mg BID NISHA Administration Chlorhexidine Gluconate 15 ml 01/16/18 20:00 01/19/18 08:07 Peridex 0.12% Oral Kit OROPHARYNG 15 ml BID@08,1999 NISHA Administration Escitalopram Oxalate 10 mg 01/16/18 09:00 01/16/18 09:18 Lexapro PO 10 mg DAILY NISHA Administration Famotidine 10 mg 01/16/18 21:00 01/19/18 08:08 Pepcid Pf Inj IV.PUSH 10 mg Q12HR NISHA Administration Furosemide 40 mg 01/17/18 13:00 01/19/18 08:08 Lasix Inj IV.PUSH 40 mg TID NISHA Administration Gabapentin 300 mg 01/16/18 09:00 01/16/18 09:19 Neurontin PO 300 mg BID NISHA Administration Piperacillin/Tazobactam/Dextrose 50 mls @ 100 mls/hr 01/16/18 17:00 01/19/18 10:49 Zosyn 3.375 Gm Premix IV.SIG Infused Q6H [facility] Infusion Vasopressin 40 unit/ Sodium 100 mls @ 1.5 mls/hr 01/16/18 17:30 01/17/18 04: 46 Chloride IV.CONT 0 units/min TITRATE PRN 0 mls/hr Per Protocol Titration Protocol 0.01 UNITS/MIN Diltiazem HCl 125 mg/ Sodium 125 mls @ 5 mls/hr 01/17/18 15:00 01/18/18 15:21 Chloride IV.CONT 5 mg/hr TITRATE PRN 5 mls/hr Per Protocol Administration Protocol 5 MG/HR Heparin Sodium/Dextrose 25,000 unit in 250 mls @ 10 mls/hr 01/18/18 06:53 05/04 04:13 Heparin/D5w 25,000 U/250 Ml IV.CONT 1,000 units/hr TITRATE PRN 10 mls/hr Per Protocol Administration Protocol 1,000 UNITS/HR Propofol 1,000 mg in 100 mls @ 2.784 mls/hr 01/18/18 06:55 Diprivan 1000 Mg/100 Ml Inj IV.CONT TITRATE PRN Per Protocol Protocol 5 MCG/KG/MIN Isosorbide Mononitrate 30 mg 01/16/18 09:00 01/16/18 09:18 Imdur PO 30 mg DAILY NISHA Administration Lactulose 30 ml 01/16/18 08:02 Lactulose Liq PO DAILY PRN SEVERE CONSITIPATION Lactulose 30 ml 01/18/18 09:00 01/19/18 08:08 Lactulose Liq PO Not Given BID NISHA Miscellaneous Medication 1 each 01/17/18 00:00 01/19/18 11:32 OROPHARYNG 1 each 0000,0400,1200,1600 NIS[facility] Administration Ondansetron HCl 4 mg 01/16/18 08:02 Zofran Inj IV.PUSH Q6H PRN NAUSEA OR VOMITING Senna/Docusate Sodium 1 tab 01/16/18 09:00 01/19/18 08:08 Bel-Colace PO Not Given BID NISHA Sennosides 17.2 mg 01/16/18 08:02 Senokot PO Q12H PRN Moderate Constipation Sodium Chloride 2 ml 01/16/18 09:00 01/19/18 08:08 Ns Flush IV.FLUSH 2 ml BID NISHA Administration Sodium Chloride 2 ml 01/16/18 08:02 Ns Flush IV.FLUSH PRN PRN FLUSH AFTER USING IV ACCESS Tamsulosin HCl 0.4 mg 01/16/18 21:00 01/18/18 23:55 Flomax PO 0.4 mg HS NISHA Administration Assessment and Plan - Plan Urologic impression: 1. History of bladder cancer 2. History meatal stenosis 3. 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 4. Status post right ureteroscopy with laser lithotripsy of distal ureteral calculus 5. Status post bilateral ureteral stent placement 6. Remains critically ill on mechanical ventilator with multisystem organ failure related to urinary tract infection. Recommendations: 1. UTI being managed by infectious disease 2 Nothing further to add at this time
--- NOTE | 2018-01-19 14:39 | ECG ---
Date Performed: 01/17/2018 Time Performed: 13:40:33 PTAGE: 82 years EKG: JUNCTIONAL TACHYCARDIA, POSSIBLE ATRIAL FLUTTER MARKED LEFT AXIS DEVIATION LEFT VENTRICULAR HYPERTROPHY AND ST-T CHANGE ABNORMAL ECG Compared to PREVIOUS TRACING significant rate change with associated nonspecific ST T changes Clinic al correlation is recommended PREVIOUS TRACIN01/16/2018 03.45 DOCTOR: Jose Swain Interpretating Date/Time 01/19/2018 14:38:05
[2018-01-19] MEDS: dilTIAZem Inj 125 MG in Sodium Chlor 0.9% Inj 100 ML IV.CONT PRN (16:42)
--- NOTE | 2018-01-19 17:24 | P.PNNP ---
Subjective Interval history: Patient seen in AM, clinically same, remain intubated. Physical Exam Vital signs: Vital Signs 01/18/18 19:00 01/18/18 19:46 01/18/18 20:00 Temperature 98.4 F Pulse Rate 79 72 78 Respiratory Rate 22 22 22 Blood Pressure 119/74 135/71 Pulse Oximetry 100 100 100 01/18/18 21:00 01/18/18 22:00 01/18/18 23:00 Temperature Pulse Rate 80 78 72 Respiratory Rate 23 23 23 Blood Pressure 129/69 139/71 159/72 H Pulse Oximetry 100 100 100 01/19/18 00:00 01/19/18 00:03 01/19/18 01:00 Temperature Pulse Rate 79 79 Respiratory Rate 22 21 23 Blood Pressure 134/72 162/72 H Pulse Oximetry 100 100 100 01/19/18 02:00 01/19/18 02:13 01/19/18 03:00 Temperature Pulse Rate 84 83 85 Respiratory Rate 23 23 24 Blood Pressure 187/87 H 185/82 H 202/84 H Pulse Oximetry 99 99 99 01/19/18 03:01 01/19/18 03:55 01/19/18 04:00 Temperature Pulse Rate 80 81 92 H Respiratory Rate 23 22 22 Blood Pressure 187/79 H 188/89 H Pulse Oximetry 99 100 100 01/19/18 05:00 01/19/18 05:02 01/19/18 06:00 Temperature Pulse Rate 89 89 77 Respiratory Rate 25 H 23 22 Blood Pressure 202/139 H 190/81 H 147/62 H Pulse Oximetry 99 99 99 01/19/18 07:00 01/19/18 08:00 01/19/18 08:32 Temperature 99.4 F Pulse Rate 81 76 84 Respiratory Rate 22 24 23 Blood Pressure 150/70 H 140/58 L Pulse Oximetry 100 100 100 01/19/18 11:52 01/19/18 12:17 01/19/18 16:00 Temperature 100.9 F H 100.5 F H Pulse Rate 90 86 Respiratory Rate 21 23 23 Blood Pressure 125/53 L 155/81 H Pulse Oximetry 99 99 99 01/19/18 16:57 Temperature Pulse Rate Respiratory Rate 23 Blood Pressure Pulse Oximetry 99 Intake & Output 01/18/18 01/19/18 01/19/18 18:59 06:59 18:59 Intake Total 2249 / 2249 350 / 350 738 / 738 Output Total 1300 / 1300 200 / 200 2100 / 2100 Balance 949 / 949 150 / 150 -1362 / -1362 Weight 91.8 kg Intake: IV 1225 / 1225 350 / 350 150 / 150 Heparin/D5W 25,000 U/250 mL 25, 250 / 250 000 unit In 250 ml @ 1,000 UNITS/HR 10 mls/hr IV.CONT TITRATE PRN Rx#:[id number] NS Inj 1,000 ML @ 100 mls/hr IV 1000 / 1000 .CONT .Q10H [facility] Rx#:[id number] Cardizem Inj 125 MG In NS Inj 125 / 125 100 / 100 100 ML @ 5 MG/HR 5 mls/hr IV. CONT TITRATE PRN Rx#:[id number] Zosyn 3.375 GM Premix 50 ML @ 100 / 100 100 / 100 50 / 50 100 mls/hr IV.SIG Q6H [facility] Rx#: [id number] Tube Feeding 904 / 904 488 / 488 Water Bolus Amount 120 / 120 100 / 100 Output: Urine Amount (Catheter) 1300 / 1300 200 / 200 2100 / 2100 Indwelling Urethral Catheter 1300 / 1300 200 / 200 2100 / 2100 Other: Date of Last Bowel Movement 01/19/18 # Bowel Movements 2 Narrative: GENERAL: Orally intubated on mild sedation. SKIN: Warm and dry. NECK: Supple, trachea midline. No JVD. CARDIOVASCULAR: Regular rate and rhythm without murmurs, gallops, or rubs. Right IJ central line. RESPIRATORY: Breath sounds equal bilaterally. No accessory muscle use. GASTROINTESTINAL: Abdomen soft, non-tender, nondistended. OG tube. GENITOURINARY: Indwelling Prince catheter, minimal light yellow urine. MUSCULOSKELETAL: No cyanosis, or edema. - Urinary Catheter Management Indwelling Urethral Catheter Cath placed during this visit: yes Reason for continuing: Chronic Urinary Retention Insertion date: 01/16/18 Insertion time: 17:30 Assessment and Plan - Assessment (1) Acute kidney injury Code(s): N17.9 - Acute kidney failure, unspecified Status: Acute Plan: Patient with Acute kidney injury and Hyperkalemia, Urine out put is low. Most likely has ATN due to hypotension, now BP is better, on Lasix 40 mg TID, K is now normalized. Creatinine continue to increase, now 3.9, K is normal, non oliguric. Follow the urine out put and BMP. Avoid Nephrotoxins. May need HD, if continue to get worse. (2) Sepsis Code(s): A41.9 - Sepsis, unspecified organism Status: Acute Plan: Blood cultures positive for gram negative rods, sensitivity pending. On Zosyn. (3) Acute UTI Code(s): N39.0 - Urinary tract infection, site not specified Status: Acute Plan: Has received Rocephin. Culture is pending. (4) Respiratory failure Code(s): J96.90 - Respiratory failure, unspecified, unspecified whether with hypoxia or hypercapnia Status: Acute Plan: Patient is intubated on very mild sedation.
--- NOTE | 2018-01-19 18:29 | P.PNID ---
Subjective Remarks: On vent not waking up off pressors and afebrile UOP improved creatinine cont to go up slowly BC, urine clx with PSAE Antibiotics: zosyn Allergies/Adverse Reactions: Allergies No Known Allergies Allergy (Verified 01/02/18 12:33) Objective Vital Signs 01/18/18 19:00 01/18/18 19:46 01/18/18 20:00 Temperature 98.4 F Pulse Rate 79 72 78 Respiratory Rate 22 22 22 Blood Pressure 119/74 135/71 Pulse Oximetry 100 100 100 01/18/18 21:00 01/18/18 22:00 01/18/18 23:00 Temperature Pulse Rate 80 78 72 Respiratory Rate 23 23 23 Blood Pressure 129/69 139/71 159/72 H Pulse Oximetry 100 100 100 01/19/18 00:00 01/19/18 00:03 01/19/18 01:00 Temperature Pulse Rate 79 79 Respiratory Rate 22 21 23 Blood Pressure 134/72 162/72 H Pulse Oximetry 100 100 100 01/19/18 02:00 01/19/18 02:13 01/19/18 03:00 Temperature Pulse Rate 84 83 85 Respiratory Rate 23 23 24 Blood Pressure 187/87 H 185/82 H 202/84 H Pulse Oximetry 99 99 99 01/19/18 03:01 01/19/18 03:55 01/19/18 04:00 Temperature Pulse Rate 80 81 92 H Respiratory Rate 23 22 22 Blood Pressure 187/79 H 188/89 H Pulse Oximetry 99 100 100 01/19/18 05:00 01/19/18 05:02 01/19/18 06:00 Temperature Pulse Rate 89 89 77 Respiratory Rate 25 H 23 22 Blood Pressure 202/139 H 190/81 H 147/62 H Pulse Oximetry 99 99 99 01/19/18 07:00 01/19/18 08:00 01/19/18 08:32 Temperature 99.4 F Pulse Rate 81 76 84 Respiratory Rate 22 24 23 Blood Pressure 150/70 H 140/58 L Pulse Oximetry 100 100 100 01/19/18 11:52 01/19/18 12:17 01/19/18 16:00 Temperature 100.9 F H 100.5 F H Pulse Rate 90 86 Respiratory Rate 21 23 23 Blood Pressure 125/53 L 155/81 H Pulse Oximetry 99 99 99 12/03/18 16:57 Temperature Pulse Rate Respiratory Rate 23 Blood Pressure Pulse Oximetry 99 Intake & Output 01/18/18 01/19/18 01/19/18 18:59 06:59 18:59 Intake Total 2249 / 2249 350 / 350 1233 / 1233 Output Total 1300 / 1300 200 / 200 5050 / 5050 Balance 949 / 949 150 / 150 -3817 / -3817 Weight 91.8 kg Intake: IV 1225 / 1225 350 / 350 150 / 150 Heparin/D5W 25,000 U/250 mL 25, 250 / 250 000 unit In 250 ml @ 1,000 UNITS/HR 10 mls/hr IV.CONT TITRATE PRN Rx#:[id number] NS Inj 1,000 ML @ 100 mls/hr IV 1000 / 1000 .CONT .Q10H [facility] Rx#:[id number] Cardizem Inj 125 MG In NS Inj 125 / 125 100 / 100 100 ML @ 5 MG/HR 5 mls/hr IV. CONT TITRATE PRN Rx#:[id number] Zosyn 3.375 GM Premix 50 ML @ 100 / 100 100 / 100 50 / 50 100 mls/hr IV.SIG Q6H [facility] Rx#: [id number] Tube Feeding 904 / 904 983 / 983 Water Bolus Amount 120 / 120 100 / 100 Output: Urine Amount (Catheter) 1300 / 1300 200 / 200 5050 / 5050 Indwelling Urethral Catheter 1300 / 1300 200 / 200 5050 / 5050 Other: Date of Last Bowel Movement 01/19/18 # Bowel Movements 0 01/16/18 08:20 Blood - Peripheral Aerobic Blood Culture - Final Pseudomonas aeruginosa 01/16/18 08:20 Blood - Peripheral Anaerobic Blood Culture - Preliminary No growth in 3 days 01/16/18 08:05 Blood - Peripheral Aerobic Blood Culture - Final Pseudomonas aeruginosa 01/16/18 08:05 Blood - Peripheral Anaerobic Blood Culture - Final Pseudomonas aeruginosa 01/16/18 06:28 Catheterized Urine Urine Culture - Final Pseudomonas aeruginosa Lab - Hematology Results 01/18/18 01/19/18 03:00 05:00 WBC 15.2 H 14.9 H RBC 3.93 L 4.18 L Hgb 11.5 L 12.4 L Hct 35.1 L 36.8 L MCV 89.3 88.0 MCH 29.4 29.6 MCHC 32.9 33.6 RDW 14.7 14.8 Plt Count 122 L 127 L MPV 8.6 9.1 Lab - Chemistry Results 01/18/18 01/19/18 03:00 05:00 Sodium 145 145 Potassium 4.0 D 3.4 L Chloride 113 H 111 H Carbon Dioxide 22.5 25.3 Anion Gap 10 9 BUN 66 H 76 H Creatinine 3.74 H 3.90 H Estimated GFR 16 L 15 L Random Glucose 152 H 172 H Calcium 7.3 L* 8.4 L D Calcium Adj for Albumin 7.9 L Phosphorus 3.9 Magnesium 1.9 2.2 Total Bilirubin 0.5 0.8 AST 48 H 72 H ALT 64 85 H Alkaline Phosphatase 63 197 H Total Protein 6.0 L 6.7 D Albumin 1.9 L 1.8 L Imaging: ITS Impressions Abdomen/Pelvis CT 01/16/18 04:21 CONCLUSION: 1. Bilateral ureteral stents are in place and there is mild distention of the collecting systems bilaterally. Both kidneys enhance heterogeneously. 2. 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 Chest X-Ray 01/18/18 06:00 CONCLUSION: Stable chest x-ray with mild bibasilar opacity. Physical Exam: GENERAL: Unresponsive Off sedation since yday am SKIN: Warm and dry. no rash HEAD: Atraumatic. Normocephalic. EYES: Pupils equal and round. No scleral icterus. No injection or drainage. ENT: No nasal bleeding or discharge. Mucous membranes pink and moist. NECK: Trachea midline. No JVD. CARDIOVASCULAR: Regular rate and rhythm. RESPIRATORY: No accessory muscle use. Clear to auscultation. Breath sounds equal bilaterally. GASTROINTESTINAL: Abdomen soft, non-tender, nondistended. Hepatic and splenic margins not palpable. MUSCULOSKELETAL: Extremities without clubbing, cyanosis, or edema. No obvious deformities. : jenkins inplace with good amount of clear urine NEUROLOGICAL: comatose PSYCHIATRIC: unable to assess Assessment and Plan - Plan PSAE sepsis quiroga S Septic shock with multi organ failure UTI, complicated , following urological procedure Acute VDRF ARF - GFR worse , no longer oliguric Severe encephalopathy , likely metabolic cont abx change to cefepime adjust renally Rx 2 wks if repeat clx are negative Repeat blood clutures 2 weeks after abx completed and if fevers FU MS dw RN dw family @ b/s in details
[2018-01-19] MEDS: Acetaminophen 325 MG Tablet PO PRN (20:52)
--- NOTE | 2018-01-20 04:11 | XR ---
EXAM DATE: 01/20/2018 3:54 AM EST AGE/SEX: 82 years / Male INDICATIONS: Short of breath. CLINICAL DATA: This is the patient's subsequent encounter. Patient reports that signs and symptoms h ave been present for 4 - 6 days and indicates a pain score of 0/10. MEDICAL/SURGICAL HISTORY: Chronic obstructive pulmonary disease. Emphysema. Hypertension. . 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 [place] [facility] [place]. . FINDINGS: A single AP view of the chest demonstrates mild cardiomegaly. Lung bases are clear on the current vinny dy. No infiltrates or effusions seen. Endotracheal tube tip 4 cm from the tatyana. Right-sided central line and nasogastric tube. Left-sided pacing device. CONCLUSION: Improvement in the areas of basilar consolidation. Electronically signed by: Donato Lakhani MD 01/20/2018 4:10 AM EST
[2018-01-20 05:37] LABS: Baso % (Auto) 0.1 % (0.0-2.0); Eos % (Auto) 0.2 % (0.0-4.0); Hematocrit 37.5 % (39.0-51.0); Hemoglobin 12.8 gm/dL (13.0-17.0); Lymph # (Auto) 1.2 th/mm3 (1.0-4.8); Lymph % (Auto) 9.3 % (9.0-44.0); Mean Corpuscular Hemoglobin 29.4 pg (27.0-34.0); Mean Corpuscular Volume 86.5 fL (80.0-100.0); Mean Platelet Volume 9.7 fL (7.0-11.0); Mono # (Auto) 1.7 th/mm3 (0.0-0.9); Mono % (Auto) 13.5 % (0.0-8.0); Neut # (Auto) 9.6 th/mm3 (1.8-7.7); Neut % (Auto) 76.9 % (16.0-70.0); Platelet Count 142 th/mm3 (150-450); Red Blood Count 4.34 mil/mm3 (4.50-5.90); Red Cell Distribution Width 15.1 % (11.6-17.2); White Blood Count 12.5 th/mm3 (4.0-11.0)
[2018-01-20 06:04] LABS: Calcium 8.5 mg/dL (8.5-10.1); Carbon Dioxide 27.6 meq/L (21.0-32.0); Magnesium 2.2 mg/dL (1.5-2.5); Phosphorus 3.6 mg/dL (2.5-4.9); Potassium 3.2 meq/L (3.5-5.1)
[2018-01-20] MEDS: Heparin Drip 25,000 UNIT/250 ML BAG IV.CONT PRN (06:18)
[2018-01-20] MEDS ORDERED: Potassium Chlor 20 mEq Premix 20 MEQ/100 ML PIGGYBACK IV.SIG ONE (08:10)
--- NOTE | 2018-01-20 08:12 | P.PNNP ---
Subjective Interval history: Patient remain on the vent. and unresponsive, not on sedation for last 48 hrs. Physical Exam Vital signs: Vital Signs 01/19/18 08:32 01/19/18 11:52 01/19/18 12:17 Temperature 100.9 F H Pulse Rate 84 90 Respiratory Rate 23 21 23 Blood Pressure 125/53 L Pulse Oximetry 100 99 99 01/19/18 16:00 01/19/18 16:57 01/19/18 19:19 Temperature 100.5 F H Pulse Rate 86 92 H Respiratory Rate 23 23 23 Blood Pressure 155/81 H Pulse Oximetry 99 99 99 01/19/18 20:00 01/19/18 22:00 01/19/18 23:30 Temperature 101.2 F H Pulse Rate 95 H 88 Respiratory Rate 24 21 Blood Pressure Pulse Oximetry 99 99 01/20/18 00:00 01/20/18 02:00 01/20/18 03:23 Temperature 99.5 F Pulse Rate 85 79 84 Respiratory Rate 25 H 20 Blood Pressure Pulse Oximetry 99 100 01/20/18 04:00 01/20/18 06:00 01/20/18 07:38 Temperature 100.1 F H Pulse Rate 82 89 Respiratory Rate 21 27 H Blood Pressure Pulse Oximetry 99 99 Intake & Output 01/19/18 01/20/18 01/20/18 18:59 06:59 18:59 Intake Total 1283 / 1283 800 / 800 100 / 100 Output Total 5050 / 5050 1900 / 1900 Balance -3767 / -3767 -1100 / -1100 100 / 100 Weight 87 kg Intake: IV 200 / 200 250 / 250 100 / 100 Heparin/D5W 25,000 U/250 mL 25, 250 / 250 000 unit In 250 ml @ 1,000 UNITS/HR 10 mls/hr IV.CONT TITRATE PRN Rx#:[id number] Cardizem Inj 125 MG In NS Inj 100 / 100 100 ML @ 5 MG/HR 5 mls/hr IV. CONT TITRATE PRN Rx#:[id number] Maxipime Inj 2,000 MG In NS Inj 100 / 100 100 ML @ 200 mls/hr IV.SIG Q24H [facility] Rx#:[id number] Zosyn 3.375 GM Premix 50 ML @ 100 / 100 100 mls/hr IV.SIG Q6H [facility] Rx#: [id number] Tube Feeding 983 / 983 430 / 430 Water Bolus Amount 100 / 100 120 / 120 Output: Urine Amount (Catheter) 5050 / 5050 1900 / 1900 Indwelling Urethral Catheter 5050 / 5050 1900 / 1900 Other: Date of Last Bowel Movement 01/19/18 01/20/18 # Bowel Movements 0 # Incontinent Bowel Movements 1 Narrative: GENERAL: Orally intubated and off sedation. SKIN: Warm and dry. NECK: Supple, trachea midline. No JVD. CARDIOVASCULAR: Regular rate and rhythm without murmurs, gallops, or rubs. Right IJ central line. RESPIRATORY: Breath sounds equal bilaterally. No accessory muscle use. GASTROINTESTINAL: Abdomen soft, non-tender, nondistended. OG tube. GENITOURINARY: Indwelling Prince catheter, minimal light yellow urine. MUSCULOSKELETAL: No cyanosis, or edema. - Urinary Catheter Management Indwelling Urethral Catheter Cath placed during this visit: yes Reason for continuing: Chronic Urinary Retention Insertion date: 01/16/18 Insertion time: 17:30 Assessment and Plan - Assessment (1) Acute kidney injury Code(s): N17.9 - Acute kidney failure, unspecified Status: Acute Plan: Patient with Acute kidney injury and Hyperkalemia, Urine out put is low. Most likely has ATN due to hypotension, now BP is better, on Lasix 40 mg TID, K is low. Creatinine continue to increase, now 4.1. non oliguric, urine out put was 2 liters in 12 hrs. Replace Kcl, D/C IV Lasix and give Lasix PRN if needed. Follow the urine out put and BMP. Avoid Nephrotoxins. May need HD, if continue to get worse. (2) Sepsis Code(s): A41.9 - Sepsis, unspecified organism Status: Acute Plan: Blood cultures positive for gram negative rods, sensitivity pending. On Zosyn. (3) Acute UTI Code(s): N39.0 - Urinary tract infection, site not specified Status: Acute Plan: Has received Rocephin. Culture is pending. (4) Respiratory failure Code(s): J96.90 - Respiratory failure, unspecified, unspecified whether with hypoxia or hypercapnia Status: Acute Plan: Patient is intubated on very mild sedation.
[2018-01-20] MEDS: Oral Hygiene Kit OROPHARYNG SCH ×4 (08:14→16:38)
[2018-01-20] MEDS: Chlorhexidine 0.12% Oral Kit 15 ML UDC OROPHARYNG SCH ×2 (08:14→20:32)
[2018-01-20] MEDS: Senna/Docusate Sodium 8.6/50 MG Tablet PO SCH ×2 (08:15→20:28)
[2018-01-20] MEDS: Acetaminophen 325 MG Tablet PO PRN ×2 (08:15→14:10)
[2018-01-20] MEDS: Famotidine PF Inj 20 MG/2 ML Vial IV.PUSH SCH ×2 (08:15→20:27)
[2018-01-20 08:22] LABS: Lymphocytes 14 % (9-44); Monocytes 12 % (0-8); Myelocytes 1 % (0-0)
[2018-01-20] MEDS: dilTIAZem 30 MG Tablet PO SCH ×3 (14:10→20:28)
[2018-01-20 14:15] LABS: Urea Creatinine ratio 9.58 mg/mg
[2018-01-20 14:24] LABS: ABG Base Excess 3.2 mmol/L (-2-2); ABG PCO2 34 mmHg (38-42); ABG PO2 167 mmHG (61-120)
--- NOTE | 2018-01-20 14:49 | P.CONPAL ---
Consult Service: Palliative Care Requesting Physician: Debra Costello Reason for Consult: a. To assist with evaluation and management of symptoms including: Encephalopathy, pain, dyspnea b. To assist medical decision maker(s) with: better understanding of current medical conditions; weighing benefits/burdens of medical treatment options; making medical treatment decisions. Primary Care Provider: Pop Escobar MD History of Present Illness History of Present Illness: This 82-year-old patient presented to the ED on 01/16/18 with generalized complaints of "not feeling well". He reported abdominal pain, pain between shoulders, nausea and vomiting onset earlier that day. Denied fever or chills. Also felt weakness all over. Denied chest pain, endorsed some shortness of breath. Patient poor historian. * Abdomen pelvis CT:1. Bilateral ureteral stents are in place and there is mild distention of the collecting systems bilaterally. Both kidneys enhance heterogeneously.2. 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 CXR:Stable mildly enlarged cardiac silhouette. No acute abnormality is identified. EKG in the ED =normal sinus rhythm. Slight elevation of troponin 0 0.09. WBC 14. Lactic acid 2.2. Started on IV fluids. Abdomen tender to exam. UA pending, concern for UTI by history. Aspirin. Admitted for further evaluation and management. * Patient noted with history of multiple recent cystoscopy his last on . He was reported by to have had Prince catheter removed the day before presentation at Dr. Mike is office outpatient. He had not been eating or drinking well over the previous weeks and was weaker than usual. We will patient with difficulty urinating symptoms onset. He had similar issues following Prince catheter removal in August but the symptoms were not as bad then. also reported not using home CPAP for past few mos because not fitting properly. * urology consulted: Known to urology. Recommends continue with antibiotics for UTI. Replace Prince if unable to void. Follow-up urine culture. May DC home when medically stable follow-up outpatient as previously arranged. * Later during course of day 01/16 patient clinically deteriorating, hypotensive , encephalopathic, minimally responsive. Was transferred to ICU. Received IV fluid bolus, Levophed for hypotension. Worsening ABG, concern for sepsis not candidate for BiPAP, INTUBATED. Leukocytosis worsening 20.4. Started on Zosyn , Vanco. Blood and urine sputum cult pending. Central line placed * 12/ creatinine worsening, K+ 6.2, nephrology consulted. Treated with IV insulin, dextrose, calcium, bicarb Kayexalate. Patient with acute kidney injury likely ATN due to hypotension, nephrology following. May need dialysis. * 12/2 multiorgan failure. Started on Lasix by nephrology, BUN and creatinine worsening, discussions regarding possible dialysis. WBC improved slightly 15.2. Patient developed A. fib RVR started on Cardizem. Started on IV heparin for persistent A. fib. * Infectious disease also consulted:+ Pseudomonas and blood cultures. Continue antibiotics repeat blood cultures will follow. * 12/ urine output improving. Creatinine still increasing 3.9. Severe encephalopathy likely metabolic, nonresponsive. ID changed antibiotics to cefepime renal adjustment. Will need repeat blood cultures 2 weeks after ABX completed. palliative care consulted to assist with clarification goals of medical treatment. Pt seen in room, and 2 close friends at bedside. Review of psychosocial hx. brief review of medical condition/current tx. requests further discussion of conditions/goals etc when her daughter Yojana can be here tomorrow, as she is her support. she will call me with a time. Pt nonresponsive to exam. D/w critical care, primary RN. Function/Cognitive Trajectory: Lives at home with previously independent with ADLs. Cognitively sharp. 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 Review of Systems unobtainable due to endotracheal tube, unobtainable due to mental status PMFSH - History History Provided By: Patient - Medical History Medical History: Medical History (Last Updated 01/20/18 @ 14:46 by BELKIS Orosco) Bladder cancer COPD (chronic obstructive pulmonary disease) COPD (chronic obstructive pulmonary disease) with emphysema CPAP (continuous positive airway pressure) dependence Dehydration Enlarged prostate History of cardiac pacemaker in situ Hx of cardiac arrhythmia Kidney stone on right side Tingling of both feet - Surgical History Surgical History: Surgical History (Last Updated 01/20/18 @ 14:45 by BELKIS Orosco) Hx of bilateral cataract extraction Hx of cervical spine surgery - Family History Family History: Family History (Last Updated 01/20/18 @ 14:44 by Libby S Shivani, THREAD CUTTER) Brother Diabetes Other Family history non-contributory - Tobacco History Second Hand Smoke Exposure: No Tobacco Use In Past 30 Days: No Smoking Status: Former smoker Tobacco Type: Cigarettes - Alcohol History How Often Do You Have a Drink Containing Alcohol: Never - Substance Use History Substance History: No History of Abuse - Travel History Recent Travel in the [place] Within the Last 8 Weeks: No Recent Travel Out of the Country Within the Last 8 Weeks: No - Immunization History Tetanus Immunization: Unsure Hx Influenza Vaccine This Season: No Medications and Allergies Active Medications: Active Medications Acetaminophen (Tylenol) 650 mg PO Q4H PRN PRN Reason: Temp > 100.4 Last Admin: 01/20/18 14:10 Dose: 650 mg Al Hydroxide/Mg Hydroxide (Milk Of Magnjessú Liq) 30 ml PO Q12H PRN PRN Reason: Mild Constipation Albuterol (Duoneb Neb (Prn)) 1 ampul NEB Q4HR NEB PRN PRN Reason: SOB/wheezing Albuterol (Duoneb Neb (Nisha)) 1 ampul NEB Q6HR NEB [facility] Last Admin: 01/20/18 09:52 Dose: 1 ampul Amlodipine Besylate (Norvasc) 10 mg PO DAILY [facility] Last Admin: 01/16/18 09:19 Dose: 10 mg Atorvastatin Calcium (Lipitor) 10 mg PO DAILY [facility] Last Admin: 01/20/18 08:14 Dose: 10 mg Bisacodyl (Dulcolax Supp) 10 mg RECTAL DAILY PRN PRN Reason: SEVERE CONSITIPATION Carvedilol (Coreg) 6.25 mg PO BID [facility] Last Admin: 01/16/18 09:18 Dose: 6.25 mg Chlorhexidine Gluconate (Peridex 0.12% Oral Kit) 15 ml OROPHARYNG BID@0800, 2000 [facility] Last Admin: 01/20/18 08:14 Dose: 15 ml Diltiazem HCl (Cardizem) 30 mg PO QID [facility] Last Admin: 01/20/18 14:10 Dose: 30 mg Escitalopram Oxalate (Lexapro) 10 mg PO DAILY [facility] Last Admin: 01/16/18 09:18 Dose: 10 mg Famotidine (Pepcid Pf Inj) 10 mg IV.PUSH Q12HR [facility] Last Admin: 01/20/18 08:15 Dose: 10 mg Gabapentin (Neurontin) 300 mg PO BID [facility] Last Admin: 01/16/18 09:19 Dose: 300 mg Vasopressin 40 unit/ Sodium (Chloride) 100 mls @ 1.5 mls/hr IV.CONT TITRATE PRN ; Protocol PRN Reason: Per Protocol Last Titration: 01/17/18 04:46 Dose: 0 units/min, 0 mls/hr Heparin Sodium/Dextrose (Heparin/D5w 25,000 U/250 Ml) 25,000 unit in 250 mls @ 10 mls/hr IV.CONT TITRATE PRN; Protocol PRN Reason: Per Protocol Last Admin: 01/20/18 06:18 Dose: 1,000 units/hr, 10 mls/hr Propofol (Diprivan 1000 Mg/100 Ml Inj) 1,000 mg in 100 mls @ 2.784 mls/hr IV.CONT TITRATE PRN; Protocol PRN Reason: Per Protocol Cefepime HCl 2,000 mg/ Sodium (Chloride) 100 mls @ 200 mls/hr IV.SIG Q24H [facility] Last Infusion: 01/20/18 07:14 Dose: Infused Isosorbide Mononitrate (Imdur) 30 mg PO DAILY [facility] Last Admin: 01/16/18 09:18 Dose: 30 mg Lactulose (Lactulose Liq) 30 ml PO DAILY PRN PRN Reason: SEVERE CONSITIPATION Lactulose (Lactulose Liq) 30 ml PO BID [facility] Last Admin: 01/20/18 08:14 Dose: Not Given Miscellaneous Medication () 1 each OROPHARYNG 0000,0400,1200,1600 [facility] Last Admin: 01/20/18 14:10 Dose: 1 each Ondansetron HCl (Zofran Inj) 4 mg IV.PUSH Q6H PRN PRN Reason: NAUSEA OR VOMITING Senna/Docusate Sodium (Bel-Colace) 1 tab PO BID [facility] Last Admin: 01/20/18 08:15 Dose: 1 tab Sennosides (Senokot) 17.2 mg PO Q12H PRN PRN Reason: Moderate Constipation Sodium Chloride (Ns Flush) 2 ml IV.FLUSH BID [facility] Last Admin: 01/20/18 08:14 Dose: 2 ml Sodium Chloride (Ns Flush) 2 ml IV.FLUSH PRN PRN PRN Reason: FLUSH AFTER USING IV ACCESS Tamsulosin HCl (Flomax) 0.4 mg PO [facility] Last Admin: 01/19/18 20:53 Dose: Not Given Allergies Allergy/AdvReac Type Severity Reaction Status Date / Time No Known Allergies Allergy Verified 01/02/18 12:33 Home Medications Medication Instructions Recorded Confirmed Type albuterol sulfate 2.5 mg INHALATION QID PRN 08/21/17 01/16/18 History carvedilol 6.25 mg PO BID 08/21/17 01/16/18 History escitalopram oxalate 10 mg PO DAILY 08/21/17 01/16/18 History gabapentin 300 mg PO BID 08/21/17 01/16/18 History naproxen 500 mg PO BID PRN 08/21/17 01/16/18 History potassium chloride 10 meq PO DAILY 08/21/17 01/16/18 History tamsulosin 0.4 mg PO HS 08/21/17 01/16/18 History furosemide 20 mg PO DAILY 08/25/17 01/16/18 History atorvastatin 10 mg PO DAILY 01/02/18 01/16/18 History isosorbide mononitrate 30 mg PO DAILY 01/02/18 01/16/18 History Oxygen 2 l INHALATION HS 01/05/18 01/16/18 History amlodipine 10 mg PO DAILY 01/05/18 01/16/18 History clonidine-chlorthalidone 1 tab PO BID 01/05/18 01/16/18 History Advance Directives Living Will: No Healthcare Surrogate: No Ethical and Legal Issues: [facility], unable to participate in decision-making. Not clear if or when he will regain ability. Per [place] statutes his would be appropriate legal proxy. Physical Exam Vital Signs: Vital Signs - 24 hr 01/19/18 16:00 01/19/18 16:57 01/19/18 19:19 Temperature 100.5 F H Pulse Rate 86 92 H Respiratory Rate 23 23 23 Blood Pressure 155/81 H Pulse Oximetry 99 99 99 01/19/18 20:00 01/19/18 22:00 01/19/18 23:30 Temperature 101.2 F H Pulse Rate 95 H 88 Respiratory Rate 24 21 Blood Pressure Pulse Oximetry 99 99 01/20/18 00:00 01/20/18 02:00 01/20/18 03:23 Temperature 99.5 F Pulse Rate 85 79 84 Respiratory Rate 25 H 20 Blood Pressure Pulse Oximetry 99 100 12/04/18 04:00 01/20/18 06:00 01/20/18 07:38 Temperature 100.1 F H Pulse Rate 82 89 Respiratory Rate 21 27 H Blood Pressure Pulse Oximetry 99 99 01/20/18 08:00 01/20/18 09:52 01/20/18 10:00 Temperature 102 F H Pulse Rate 89 87 98 H Respiratory Rate 24 23 Blood Pressure 167/101 H Pulse Oximetry 99 01/20/18 11:16 Temperature Pulse Rate Respiratory Rate 23 Blood Pressure Pulse Oximetry 99 I&O: Intake & Output 01/18/18 01/19/18 01/20/18 01/21/18 06:59 06:59 06:59 06:59 Intake Total 3570 / 3570 2599 / 2599 2083 / 2083 100 / 100 Output Total 1950 / 1950 1500 / 1500 6950 / 6950 Balance 1620 / 1620 1099 / 1099 -4867 / -4867 100 / 100 Weight 92.8 kg 91.8 kg 87 kg Physical Exam: CONSTITUTIONAL/GENERAL: This is an adequately nourished patient, tall. In no apparent distress, nonresponsive on mechanical vent. TUBES/LINES/DRAINS: Peripheral IV upper extremity, central line to IJ, Prince catheter, ET tube, OG tube, soft restraints bilaterally SKIN: No jaundice, rashes, or lesions. No wounds seen anteriorly. Skin warm and dry, however right foot is cool to the touch. Coloration normal. HEAD: Atraumatic. Normocephalic. EYES: Pupils 2 mm questionable reaction to light. No scleral icterus. No injection or drainage. Fundi not examined. ENT: Hearing grossly normal. Nose without bleeding or purulent drainage. Throat without visible erythema, exudates, masses, or lesions. NECK: Trachea midline. Supple, nontender. No palpable thyroid enlargement or nodularity. CARDIOVASCULAR: Irregular heart rate. A. fib viewed on bedside monitor. No murmur. No JVD. pedal pulses are faint. Right foot cool to the touch. RESPIRATORY/CHEST: Symmetric, unlabored respirations via ET tube mechanical vent. Clear to auscultation. Breath sounds equal bilaterally. GASTROINTESTINAL: Abdomen soft, nondistended. No hepato-splenomegaly, or palpable masses. Bowel sounds present. OG tube present, clamped. GENITOURINARY: Without palpable bladder distension. Prince catheter in place. Clear yellow urine with sediment MUSCULOSKELETAL: Extremities without clubbing, cyanosis, or edema. No joint effusion noted. No mottling or clubbing. Right foot cool to touch. LYMPHATICS: No palpable cervical or supraclavicular adenopathy. NEUROLOGICAL: Nonresponsive to exam. No withdrawal to pain stimuli. No eye opening. Pupils with questionable reaction to light, pinpoint. PSYCHIATRIC: Unable to assess due to clinical condition, no obvious anxiety Diagnostic Tests Laboratory: Laboratory Results - last 72 hr 01/17/18 01/18/18 01/18/18 14:30 03:00 03:00 WBC 15.2 H RBC 3.93 L Hgb 11.5 L Hct 35.1 L MCV 89.3 MCH 29.4 MCHC 32.9 RDW 14.7 Plt Count 122 L MPV 8.6 Prelim Diff (Auto) Neut % (Auto) Lymph % (Auto) [place] % (Auto) Eos % (Auto) Baso % (Auto) Neut # (Auto) Lymph # (Auto) [place] # (Auto) Eos # (Auto) Baso # (Auto) WBC Differential Seg Neuts % (Manual) Band Neuts % (Manual) Lymphocytes % (Manual) Monocytes % (Manual) Myelocytes % (Man) Abs Neuts (Manual) Differential Comment Platelet Estimate Platelet Morphology PT INR APTT Sodium 145 Potassium 4.0 D Chloride 113 H Carbon Dioxide 22.5 Anion Gap 10 BUN 66 H Creatinine 3.74 H Estimated GFR 16 L Random Glucose 152 H Calcium 7.3 L* Calcium Adj for Albumin 7.9 L Phosphorus 3.9 Magnesium 1.9 Total Bilirubin 0.5 AST 48 H ALT 64 Alkaline Phosphatase 63 Total Protein 6.0 L Albumin 1.9 L Urine Osmolality 356 01/18/18 01/18/18 01/18/18 07:50 13:25 21:00 WBC RBC Hgb Hct MCV MCH MCHC RDW Plt Count MPV Prelim Diff (Auto) Neut % (Auto) Lymph % (Auto) [place] % (Auto) Eos % (Auto) Baso % (Auto) Neut # (Auto) Lymph # (Auto) [place] # (Auto) Eos # (Auto) Baso # (Auto) WBC Differential Seg Neuts % (Manual) Band Neuts % (Manual) Lymphocytes % (Manual) Monocytes % (Manual) Myelocytes % (Man) Abs Neuts (Manual) Differential Comment Platelet Estimate Platelet Morphology PT 11.9 H INR 1.2 APTT 47.0 H 69.3 H D 55.4 H D Sodium Potassium Chloride Carbon Dioxide Anion Gap BUN Creatinine Estimated GFR Random Glucose Calcium Calcium Adj for Albumin Phosphorus Magnesium Total Bilirubin AST ALT Alkaline Phosphatase Total Protein Albumin Urine Osmolality 01/19/18 01/19/18 01/19/18 05:00 05:00 05:00 WBC 14.9 H RBC 4.18 L Hgb 12.4 L Hct 36.8 L MCV 88.0 MCH 29.6 MCHC 33.6 RDW 14.8 Plt Count 127 L MPV 9.1 Prelim Diff (Auto) Neut % (Auto) Lymph % (Auto) [place] % (Auto) Eos % (Auto) Baso % (Auto) Neut # (Auto) Lymph # (Auto) [place] # (Auto) Eos # (Auto) Baso # (Auto) WBC Differential Seg Neuts % (Manual) Band Neuts % (Manual) Lymphocytes % (Manual) Monocytes % (Manual) Myelocytes % (Man) Abs Neuts (Manual) Differential Comment Platelet Estimate Platelet Morphology PT INR APTT 53.5 H Sodium 145 Potassium 3.4 L Chloride 111 H Carbon Dioxide 25.3 Anion Gap 9 BUN 76 H Creatinine 3.90 H Estimated GFR 15 L Random Glucose 172 H Calcium 8.4 L D Calcium Adj for Albumin Phosphorus Magnesium 2.2 Total Bilirubin 0.8 AST 72 H ALT 85 H Alkaline Phosphatase 197 H Total Protein 6.7 D Albumin 1.8 L Urine Osmolality 01/20/18 01/20/18 01/20/18 05:05 05:05 05:05 WBC 12.5 H RBC 4.34 L Hgb 12.8 L Hct 37.5 L MCV 86.5 MCH 29.4 MCHC 34.0 RDW 15.1 Plt Count 142 L MPV 9.7 Prelim Diff (Auto) Slide review pending Neut % (Auto) 76.9 H Lymph % (Auto) 9.3 Crockett % (Auto) 13.5 H Eos % (Auto) 0.2 Baso % (Auto) 0.1 Neut # (Auto) 9.6 H Lymph # (Auto) 1.2 [place] # (Auto) 1.7 H Eos # (Auto) 0.0 Baso # (Auto) 0.0 WBC Differential Manual diff final Seg Neuts % (Manual) 60 Band Neuts % (Manual) 13 H Lymphocytes % (Manual) 14 Monocytes % (Manual) 12 H Myelocytes % (Man) 1 H Abs Neuts (Manual) 9.3 H Differential Comment . Platelet Estimate Low L Platelet Morphology Enlarged H PT INR APTT 49.7 H Sodium 149 H Potassium 3.2 L Chloride 110 H Carbon Dioxide 27.6 Anion Gap 11 BUN 89 H Creatinine 4.19 H Estimated GFR 14 L Random Glucose 159 H Calcium 8.5 Calcium Adj for Albumin Phosphorus 3.6 Magnesium 2.2 Total Bilirubin AST ALT Alkaline Phosphatase Total Protein Albumin Urine Osmolality Result Diagrams: 01/20/18 05:05 01/20/18 05:05 Microbiology: Microbiology 01/16/18 08:20 Aerobic Blood Culture - Final Blood - Peripheral Pseudomonas aeruginosa Anaerobic Blood Culture - Preliminary No growth in 4 days 01/16/18 08:05 Aerobic Blood Culture - Final Blood - Peripheral Pseudomonas aeruginosa Anaerobic Blood Culture - Final Pseudomonas aeruginosa 01/16/18 06:28 Urine Culture - Final Catheterized Urine Pseudomonas aeruginosa Imaging: Chest X-Ray 01/16/18 00:00 CONCLUSION: 1. Interval intubation. 2. Placement of right internal jugular central venous line with no pneumothorax. 3. Streaky opacity remains at the lung bases without significant change. Abdomen/Pelvis CT 01/16/18 04:21 CONCLUSION: 1. Bilateral ureteral stents are in place and there is mild distention of the collecting systems bilaterally. Both kidneys enhance heterogeneously. 2. 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 Chest X-Ray 01/16/18 04:21 CONCLUSION: Stable mildly enlarged cardiac silhouette. No acute abnormality is identified. Chest X-Ray 01/16/18 15:20 CONCLUSION: Cardiomegaly with prominence of the interstitial markings likely related to mild edema. Chest X-Ray 01/17/18 06:00 CONCLUSION: Stable chest x-ray with mild bibasilar opacity representing either atelectasis or consolidation. Chest X-Ray 01/18/18 06:00 CONCLUSION: Stable chest x-ray with mild bibasilar opacity. Chest X-Ray 01/20/18 04:00 CONCLUSION: Improvement in the areas of basilar consolidation. Procedures: 01/16 central line right IJ 11/30 intubated Patient/Family Conference Family Conference Time: 20 Family Conference Location: Bedside Issues Discussed: Brief meeting with at bedside, discussion included the following * Palliative care role, purpose, approach * review of medical, psychosocial, and spiritual history * Brief review of current condition and treatments * Palliative care contact information provided Assessment and Plan Pertinent Non-Medical Issues: Psychosocial: Born and raised in [place]. 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 Worked participating in operations until recently. Supported by , children, grandchildren as well as close friends. 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 Not clear if or when he will regain ability. Per [place] statutes his would be appropriate legal proxy. Ethical issues impacting care: No ethical issues identified. Important Contacts: Lanie Cheung [phone], [facility] [phone] Prognosis: This patient was initially admitted with generalized symptoms of nausea, weakness but overall not feeling well. During hospital course has had worsening sepsis, multiorgan failure. He has recent diagnoses of bladder cancer. Given advanced age, Multiorgan issues, high risk for ongoing complications and setbacks. Code Status: Full Code Plan: Legal decision maker:Pt critically ill on mech vent, unable to participate in decision-making. Not clear if or when he will regain ability. Per [place] statutes his would be appropriate legal proxy. Goals: planned for further meeting sometime 01/20/18, brief discussion with today upon consultation. She wishes to discuss further tomorrow when her daughter is present to support her. CODE STATUS:full code SYMPTOMS: --Dyspneaintubated, currently breathing comfortably on mechanical vent. Encephalopathic not likely to tolerate weaning at this time. History of COPD requiring CPAP of though had not used recently due to ill fitting. --Encephalopathy-multifactorial, metabolic. Multiorgan failure. Has not been on sedation for 2 days. Not arousing, not following commands. --Pain-currently with no signs or symptoms of pain, potential sources would include bedbound status, recent invasive procedures, including cystoscopy. No indications for pain medication at this time. We will continue to evaluate. Palliative care will continue to follow during hospital course as condition evolves, to assist patient/decision-maker with understanding of medical conditions, weighing benefits/burdens of treatment options, for clarification of goals of treatment. Additionally will assist with any symptoms of palliative concern Appreciation Thank you for the opportunity to participate in the care of Leigha Cheung. Attestation Attestation: To help prompt me to consider important information that might be impacting today's encounter and assessment, information from prior notes written by myself or my colleagues may have been "brought forward" into today's note. My signature on this note, however, is an attestation that I personally performed the exam, history, and/or decision-making noted today, and, unless otherwise indicated, the interactions with patient, family, and staff as well as the review of records all occurred today. I also attest that the listed assessment and stated plan reflect my best clinical judgment today based on the combination of historical information, prior notes, and today's exam/ interactions. When time spent is documented, it refers only to time spent today by the signer, or if indicated, combined time spent today by collaborating physician/nurse practitioner.
--- NOTE | 2018-01-20 15:07 | P.PNCC ---
Subjective Subjective Remarks/Hospital Course: Mr. Cheung is a 82-year-old male with bladder cancer, thoracic and abdominal aortic aneurysm, Bronchiectasis, Restrictive lung disease, COPD, on 2L of supplemental O2, history of congestive heart failure, Hyperlipidemia, HTN who recently underwent recent cystoscopy with meatal dilation about 4 days ago. According to Dr. 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 He underwent laser ablation of the tumor masses with biopsy along with laser lithotripsy and extraction of the right ureteral calculus. Bilateral stents were placed. Patient came to the ER today with symptoms of UTI and sepsis, altered mental status. UA showed evidence of UTI. Patient was started on Rocephin and admitted to hospitalist service. Over the course of the day patient clinically started deteriorating hypotensive with worsening encephalopathy hardly responsive. Patient was transferred to the ICU and critical care medicine was consulted. I evaluated the patient in the ICU he is very lethargic encephalopathy. Currently received 2 L normal saline bolus and had been started on Levophed currently at 12 mcg/min. Despite this patient is hypotensive. Initial ABG showed a pH of 7.25 PCO2 50 base excess -5 now slightly worse with pH of 7.23 PCO2 52. Due to severe sepsis and metabolic acidosis patient is not a candidate for BiPAP. WBC count of on admission was 14 with left shift now has worsened to 20.4. Initial lactic acid was 2,2 repeat lactic acid is pending at this time. Patient previously was sent home with indwelling Prince by Dr. Cabrera , he removed the Prince today. Patient has been oliguric and in renal failure. Will replace the Prince for strict hourly intake output SUBJ 01/17: Remains critical intubated sedated. Blood cultures all bottles growing gram-negative rods. Currently on Zosyn. Creatinine has worsened to 3, potassium is 6.2. Urine output has been marginal 10-15 mL/h. CVP is only 9. Fluid challenge with 1 L normal saline bolus and maintenance fluid 100 mL/h. Nephrology consulted, CMP at noon. Treatment for hyperkalemia ordered with IV insulin followed by dextrose, calcium, bicarb, Kayexalate and breathing treatments. 01/18: Remains critical, remains in multiorgan failure. Started on Lasix by nephrology yesterday urine output approximately 1 L, worsening BUN/creatinine 66 /3.74. Will discuss with nephrology regarding dialysis though there is no acute indication. WBC count slightly improved to 15.2. Patient developed A. fib with RVR yesterday, started on Cardizem infusion after bolus. Will DC Lovenox for DVT prophylaxis and start on IV heparin for persistent A. fib. 01/19: Patient continues on heparin and Cardizem infusion. WBC count slightly improved. Urine output increased 2 L in 12 hours last evening. Patient continues in A. fib but rate controlled will transition to p.o.. 01/20: T-max 101.0 Cardizem has been transition to p.o. 30 mg 4 times daily. The patient continues to fail CPAP trials. Urine output continues to increase. Continue continued improvement in WBC count. No change in neurological status , despite being off sedation greater than 48 hours continue to monitor. Objective Vital Signs / I&O: Vital Signs 01/19/18 16:00 01/19/18 16:57 01/19/18 19:19 Temperature 100.5 F H Pulse Rate 86 92 H Respiratory Rate 23 23 23 Blood Pressure 155/81 H Pulse Oximetry 99 99 99 01/19/18 20:00 01/19/18 22:00 01/19/18 23:30 Temperature 101.2 F H Pulse Rate 95 H 88 Respiratory Rate 24 21 Blood Pressure Pulse Oximetry 99 99 01/20/18 00:00 01/20/18 02:00 01/20/18 03:23 Temperature 99.5 F Pulse Rate 85 79 84 Respiratory Rate 25 H 20 Blood Pressure Pulse Oximetry 99 100 01/20/18 04:00 01/20/18 06:00 01/20/18 07:38 Temperature 100.1 F H Pulse Rate 82 89 Respiratory Rate 21 27 H Blood Pressure Pulse Oximetry 99 99 01/20/18 08:00 01/20/18 09:52 01/20/18 10:00 Temperature 102 F H Pulse Rate 89 87 98 H Respiratory Rate 24 23 Blood Pressure 167/101 H Pulse Oximetry 99 01/20/18 11:16 01/20/18 14:28 Temperature Pulse Rate 82 Respiratory Rate 23 22 Blood Pressure Pulse Oximetry 99 Intake & Output 01/19/18 01/20/18 01/20/18 18:59 06:59 18:59 Intake Total 1283 / 1283 800 / 800 100 / 100 Output Total 5050 / 5050 1900 / 1900 Balance -3767 / -3767 -1100 / -1100 100 / 100 Weight 87 kg Intake: IV 200 / 200 250 / 250 100 / 100 Heparin/D5W 25,000 U/250 mL 25, 250 / 250 000 unit In 250 ml @ 1,000 UNITS/HR 10 mls/hr IV.CONT TITRATE PRN Rx#:[id number] Cardizem Inj 125 MG In NS Inj 100 / 100 100 ML @ 5 MG/HR 5 mls/hr IV. CONT TITRATE PRN Rx#:[id number] Maxipime Inj 2,000 MG In NS Inj 100 / 100 100 ML @ 200 mls/hr IV.SIG Q24H BRIANNA Rx#:[id number] Zosyn 3.375 GM Premix 50 ML @ 100 / 100 100 mls/hr IV.SIG Q6H BRIANNA Rx#: [id number] Tube Feeding 983 / 983 430 / 430 Water Bolus Amount 100 / 100 120 / 120 Output: Urine Amount (Catheter) 5050 / 5050 1900 / 1900 Indwelling Urethral Catheter 5050 / 5050 1900 / 1900 Other: Date of Last Bowel Movement 01/19/18 01/20/18 01/20/18 # Bowel Movements 0 # Incontinent Bowel Movements 1 Result Diagrams: 01/20/18 05:05 01/20/18 05:05 Other Results: Laboratory Results WBC 12.5 th/mm3 (4.0-11.0) H 01/20/18 05:05 RBC 4.34 mil/mm3 (4.50-5.90) L 01/20/18 05:05 Hgb 12.8 gm/dL (13.0-17.0) L 01/20/18 05:05 Hct 37.5 % (39.0-51.0) L 01/20/18 05:05 MCV 86.5 fL (80.0-100.0) 01/20/18 05:05 MCH 29.4 pg (27.0-34.0) 01/20/18 05:05 MCHC 34.0 % (32.0-36.0) 01/20/18 05:05 RDW 15.1 % (11.6-17.2) 01/20/18 05:05 Plt Count 142 th/mm3 (150-450) L 01/20/18 05:05 MPV 9.7 fL (7.0-11.0) 01/20/18 05:05 Prelim Diff (Auto) Slide review pending 01/20/18 05:05 Neut % (Auto) 76.9 % (16.0-70.0) H 01/20/18 05:05 Lymph % (Auto) 9.3 % (9.0-44.0) 01/20/18 05:05 [place] % (Auto) 13.5 % (0.0-8.0) H 01/20/18 05:05 Eos % (Auto) 0.2 % (0.0-4.0) 01/20/18 05:05 Baso % (Auto) 0.1 % (0.0-2.0) 01/20/18 05:05 Neut # (Auto) 9.6 th/mm3 (1.8-7.7) H 01/20/18 05:05 Lymph # (Auto) 1.2 th/mm3 (1.0-4.8) 01/20/18 05:05 [place] # (Auto) 1.7 th/mm3 (0.0-0.9) H 01/20/18 05:05 Eos # (Auto) 0.0 th/mm3 (0.0-0.4) 01/20/18 05:05 Baso # (Auto) 0.0 th/mm3 (0.0-0.2) 01/20/18 05:05 WBC Differential Manual diff final 01/20/18 05:05 Seg Neuts % (Manual) 60 % (16-70) 01/20/18 05:05 Band Neuts % (Manual) 13 % (0-6) H 01/20/18 05:05 Lymphocytes % (Manual) 14 % (9-44) 01/20/18 05:05 Monocytes % (Manual) 12 % (0-8) H 01/20/18 05:05 Metamyelocytes % (Man) 2 % (0-1) H 01/16/18 15:50 Myelocytes % (Man) 1 % (0-0) H 01/20/18 05:05 Abs Neuts (Manual) 9.3 th/mm3 (1.8-7.7) H 01/20/18 05:05 Differential Comment . 01/20/18 05:05 Toxic Vacuolation Present (None) H 01/16/18 15:50 Platelet Estimate Low (Normal) L 01/20/18 05:05 Platelet Morphology Enlarged (Normal) H 01/20/18 05:05 RBC Morphology Normal (Normal) 01/16/18 15:50 PT 11.9 sec (9.8-11.6) H 01/18/18 07:50 INR 1.2 Ratio 01/18/18 07:50 APTT 49.7 sec (23.4-31.7) H 01/20/18 05:05 Puncture Site Art line 01/20/18 14:18 Patient Temperature 98.6 01/20/18 14:18 O2 Saturation 97 % (90-100) 01/20/18 14:18 ABG pH 7.50 (7.380-7.420) H 01/20/18 14:18 ABG pCO2 34 mmHg (38-42) L 01/20/18 14:18 ABG pO2 167 mmHG (61-120) H 01/20/18 14:18 ABG HCO3 26 mmol/L (22-26) 01/20/18 14:18 ABG O2 Content 18.3 Vol % (12.0-20.0) 01/20/18 14:18 ABG Base Excess 3.2 mmol/L (-2-2) H 01/20/18 14:18 ABG Methemoglobin 1.5 % (0-2) 01/20/18 14:18 Mg Test Present 01/16/18 16:20 Hemoglobin 13.2 G/DL (12.0-16.0) 01/20/18 14:18 Carboxyhemoglobin 0.7 % (0-4) 01/20/18 14:18 O2 Delivery Device Ventilator 01/20/18 14:18 Liter Flow 15.00 L/M 01/16/18 16:20 Vent Setting Prvc/ac 550/18 01/20/18 14:18 Inspired O2 40 % 01/20/18 14:18 Critical Value No 01/20/18 14:18 Sodium 149 meq/L (136-145) H 01/20/18 05:05 Potassium 3.2 meq/L (3.5-5.1) L 01/20/18 05:05 Chloride 110 meq/L (98-107) H 01/20/18 05:05 Carbon Dioxide 27.6 meq/L (21.0-32.0) 01/20/18 05:05 Anion Gap 11 meq/L (5-15) 01/20/18 05:05 BUN 89 mg/dL (7-18) H 01/20/18 05:05 Creatinine 4.19 mg/dL (0.60-1.30) H 01/20/18 05:05 Estimated GFR 14 mL/min (>89) L 01/20/18 05:05 POC Glucose 125 mg/dl (68-110) H 01/16/18 16:00 Random Glucose 159 mg/dL (74-106) H 01/20/18 05:05 Lactic Acid 2.3 mmol/L (0.4-2.0) H 01/16/18 18:26 Calcium 8.5 mg/dL (8.5-10.1) 01/20/18 05:05 Calcium Adj for Albumin 7.9 mg/dL (8.5-10.1) L 01/18/18 03:00 Phosphorus 3.6 mg/dL (2.5-4.9) 01/20/18 05:05 Magnesium 2.2 mg/dL (1.5-2.5) 01/20/18 05:05 Total Bilirubin 0.8 mg/dL (0.2-1.0) 01/19/18 05:00 AST 72 U/L (15-37) H 01/19/18 05:00 ALT 85 U/L (12-78) H 01/19/18 05:00 Alkaline Phosphatase 197 U/L (45-117) H 01/19/18 05:00 Total Creatine Kinase 71 U/L (39-308) 01/17/18 03:30 Troponin I 0.24 ng/mL (0.02-0.05) H 01/17/18 03:30 Total Protein 6.7 g/dL (6.4-8.2) D 01/19/18 05:00 Albumin 1.8 g/dL (3.4-5.0) L 01/19/18 05:00 Lipase 56 U/L (73-393) L 01/16/18 04:29 Urine Color [place] (Yellw/Straw) 01/16/18 06:28 Urine Clarity Cloudy (Clear) H 01/16/18 06:28 Urine pH 5.0 (5.0-8.5) 01/16/18 06:28 Ur Specific [place] 1.021 (1.002-1.035) 01/16/18 06:28 Urine Protein 100 mg/dL (Neg-Trace) H 01/16/18 06:28 Urine Glucose (UA) Negative mg/dL (Negative) 01/16/18 06:28 Urine Ketones Negative mg/dL (Negative) 01/16/18 06:28 Urine Occult Blood Large (Negative) H 01/16/18 06:28 Urine Nitrate Negative (Negative) 01/16/18 06:28 Urine Bilirubin Negative (Negative) 01/16/18 06:28 Urine Urobilinogen 2.0 mg/dL (Less than 2) H 01/16/18 06:28 Ur Leukocyte Esterase Large (Negative) H 01/16/18 06:28 Urine RBC /hpf (0-3) 01/16/18 06:28 Urine WBC /hpf (0-5) 01/16/18 06:28 Amorphous Sediment Rare /hpf (None) H 01/16/18 06:28 Urine Bacteria Many /hpf (None) H 01/16/18 06:28 Hyaline Casts 12 /lpf (0-3) 01/16/18 06:28 Urine Mucus Few /lpf (Occasional) H 01/16/18 06:28 Micro UA Comment Cath-culture ind 01/16/18 06:28 Ur Microscopic Review Not Reportable 01/16/18 06:28 Urine Culture Comments Cath-cult indicated 01/16/18 06:28 Urine Osmolality 356 mosm/kg (300-1300) 01/17/18 14:30 Ur Random Urea 632 mg/dL 01/17/18 14:30 U Random Urea/Creat 9.58 mg/dL 01/17/18 14:30 Urine Creatinine 66 mg/dL 01/17/18 14:30 Impressions Abdomen/Pelvis CT 01/16/18 04:21 CONCLUSION: 1. Bilateral ureteral stents are in place and there is mild distention of the collecting systems bilaterally. Both kidneys enhance heterogeneously. 2. 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 Chest X-Ray 01/20/18 04:00 CONCLUSION: Improvement in the areas of basilar consolidation. Objective Remarks: GENERAL: Elderly 82-year-old male who is encephalopathic currently intubated SKIN: Poorly perfused. Moderate bruising noted bilateral upper and lower extremities HEENT: Atraumatic. Normocephalic. Pupils equal and round. No scleral icterus. No injection or drainage, edentulous. Intubated NECK: Trachea midline. No JVD. CARDIO: Atrial fibrillation rate controlled. Left upper chest pacemaker in place. RESP: Air entry equal bilaterally with bilateral crackles. No wheezes or rhonchi ABD: +BS, soft, non-tender, nondistended. Bilateral flank tenderness on deep palpation EXT: Extremities without clubbing, cyanosis, or edema. Poorly perfused NEURO: Intubated, Versed discontinued 01/18 @9 AM. Moves extremities weakly. Does not follow commands. 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 Status post recent right ureteroscopy with laser lithotripsy of distal ureteral calculus Status post bilateral ureteral stent placement AAA/Thoracic aortic aneurysm Bronchiectasis/Restrictive lung disease/COPD, chronically on 2L of supplemental O2 CHF Hyperlipidemia HTN PLAN: NEURO: -Versed discontinued 01/18 , still unresponsive-to pain. Currently all sedation off -Altered mental status/encephalopathy secondary to metabolic encephalopathy and severe sepsis -Continue daily sedation vacation -Trend ammonia level RESP: -Emergently intubated and placed on mechanical ventilation for worsening metabolic acidosis altered mental status and hypoxia -PRVC/AC, Ventilator bundle -DuoNeb every 6 hours scheduled and as needed -Continue CPAP trials, only lasting 30 minutes at most. Day 5 ETT-gated discussion regarding possible tracheostomy, palliative care was also consulted CV: -Developed A. fib with RVR 01/17/2018. IV Cardizem discontinued Cardizem 30 mg 4 times daily initiated. Will resume carvedilol if tolerated/hemodynamically stable -Currently rate controlled but remains in A. fib, continue IV heparin -s/p Normal saline IV fluids 4L bolus since ICU admission and currently on normal saline maintenance fluid -Started on Lasix 40 mg 3 times daily by nephrology. Diuresis 2 L in the last 12 hours overnight -Keep MAP > 65, Levophed and vasopressin discontinued 01/18 -2D echo 07/24/17: Estimated EF 45-50%, abnormal LV diastolic function, mild to moderate AR GI: -Tube feeds with Nepro, IV famotidine -Bowel regimen : -Monitor renal function closely. Prince catheter. Patient's previous indwelling catheter was removed by Dr. Feliciano 01/16/18 -Urology Dr. Cabrera is following -Nephrology Dr. Duarte following for for worsening oliguric renal failure creatinine -Lasix 40 mg IV 3 times daily. Patient may need hemodialysis -CT of abdomen pelvis on admission showed bilateral ureteral stents are in place and there is mild distention of the collecting systems bilaterally. ID: -Antibiotics Zosyn renally dosed, received vancomycin 1 dose -Blood urine and sputum cultures. Blood culture growing gram-negative rods and 3 out of 4 bottles-pseudomonas growing -ID consulted-Dr. Foster following -urine culture Pseudomonas HEME: -Monitor CBC, coags ENDO: -Hyperkalemia treatment with IV insulin, IV bicarb, IV calcium, breathing treatment and Kayexalate -Repeat CMP in am PROPH: -Bilateral lower extremity SCDs. IV Heparin/famotidine LINES: -Right IJ central line placed 01/16/2018. Respiratory therapist placed art line 01/16/18-central line and arterial line discontinued 01/20 Palliative care has been consulted to define goals of care My billing statement This patient remains critically ill with one or more organ systems which are or may become a threat to life. I have spent in excess of 31 minutes discontinuously in the care and management of this patient. This time is exclusive of procedures, and includes, but is not limited to, evaluation of the patient, review of the medical record, discussions with family, consultants, nursing staff, or respiratory therapy, and documentation in the medical record. Code Status: Full Discussed Condition With: Patient's and brother as well as TAX CONSULTANT at bedside
[2018-01-21] MEDS: Oral Hygiene Kit OROPHARYNG SCH ×4 (00:54→18:30)
[2018-01-21] MEDS: Acetaminophen 325 MG Tablet PO PRN (00:59)
[2018-01-21] MEDS: hydrALAZINE HCl Inj 20 MG/ML Vial IV.PUSH PRN ×2 (03:11→20:25)
[2018-01-21 05:13] LABS: Baso % (Auto) 0.4 % (0.0-2.0); Eos # (Auto) 0.1 th/mm3 (0.0-0.4); Eos % (Auto) 0.8 % (0.0-4.0); Hemoglobin 13.1 gm/dL (13.0-17.0); Lymph # (Auto) 1.3 th/mm3 (1.0-4.8); Lymph % (Auto) 13.3 % (9.0-44.0); Mean Corpuscular HGB Conc 33.6 % (32.0-36.0); Mean Corpuscular Hemoglobin 29.5 pg (27.0-34.0); Mean Corpuscular Volume 87.9 fL (80.0-100.0); Mean Platelet Volume 9.4 fL (7.0-11.0); Mono # (Auto) 1.7 th/mm3 (0.0-0.9); Mono % (Auto) 17.6 % (0.0-8.0); Neut # (Auto) 6.7 th/mm3 (1.8-7.7); Neut % (Auto) 67.9 % (16.0-70.0); Platelet Count 159 th/mm3 (150-450); Red Blood Count 4.44 mil/mm3 (4.50-5.90); White Blood Count 9.9 th/mm3 (4.0-11.0)
[2018-01-21 05:44] LABS: Calcium 8.1 mg/dL (8.5-10.1); Carbon Dioxide 28.7 meq/L (21.0-32.0); Magnesium 2.5 mg/dL (1.5-2.5); Phosphorus 3.4 mg/dL (2.5-4.9)
[2018-01-21 06:15] LABS: Potassium 2.9 meq/L (3.5-5.1)
[2018-01-21] MEDS ORDERED: Potassium Chlor 20 mEq Premix 20 MEQ/100 ML PIGGYBACK IV.SIG ONE (07:30)
[2018-01-21 08:20] LABS: Eosinophils 1 % (0-4); Lymphocytes 14 % (9-44); Metamyelocytes 1 % (0-1); Monocytes 15 % (0-8); Myelocytes 1 % (0-0)
[2018-01-21 08:21] LABS: Platelet Estimate Normal (Normal); Platelet Morphology Normal (Normal)
[2018-01-21] MEDS: Famotidine PF Inj 20 MG/2 ML Vial IV.PUSH SCH ×2 (08:24→20:20)
[2018-01-21] MEDS: dilTIAZem 30 MG Tablet PO SCH ×4 (08:24→20:21)
[2018-01-21] MEDS: Heparin Drip 25,000 UNIT/250 ML BAG IV.CONT PRN (08:26)
[2018-01-21] MEDS: Chlorhexidine 0.12% Oral Kit 15 ML UDC OROPHARYNG SCH ×2 (08:28→20:21)
[2018-01-21] MEDS: Senna/Docusate Sodium 8.6/50 MG Tablet PO SCH ×2 (08:28→20:22)
--- NOTE | 2018-01-21 11:33 | P.PNNP ---
Subjective Interval history: Patient remain on the vent. and still unresponsive. Physical Exam Vital signs: Vital Signs 01/20/18 12:00 01/20/18 13:00 01/20/18 14:00 Temperature 101.9 F H Pulse Rate 85 84 97 H Respiratory Rate 24 31 H 25 H Blood Pressure 160/85 H 178/79 H Pulse Oximetry 100 98 99 01/20/18 14:28 01/20/18 14:36 01/20/18 15:00 Temperature Pulse Rate 82 85 81 Respiratory Rate 22 21 19 Blood Pressure 153/65 H Pulse Oximetry 99 99 01/20/18 15:01 01/20/18 15:19 01/20/18 15:30 Temperature Pulse Rate 78 73 Respiratory Rate 20 18 20 Blood Pressure 159/67 H 118/63 Pulse Oximetry 99 99 99 01/20/18 16:00 01/20/18 16:31 01/20/18 17:00 Temperature 98.4 F Pulse Rate 77 82 85 Respiratory Rate 20 21 21 Blood Pressure 137/68 170/74 H 150/65 H Pulse Oximetry 99 99 99 01/20/18 17:31 01/20/18 18:00 01/20/18 18:30 Temperature Pulse Rate 80 74 71 Respiratory Rate 22 21 21 Blood Pressure 169/79 H 132/68 139/61 Pulse Oximetry 100 100 100 01/20/18 19:00 01/20/18 19:01 01/20/18 19:24 Temperature Pulse Rate 81 78 Respiratory Rate 21 22 20 Blood Pressure 172/84 H Pulse Oximetry 100 100 99 01/20/18 19:30 01/20/18 20:00 01/20/18 20:30 Temperature 98.2 F Pulse Rate 79 81 79 Respiratory Rate 24 23 23 Blood Pressure 180/81 H 169/82 H 159/81 H Pulse Oximetry 99 99 100 01/20/18 21:00 01/20/18 21:01 01/20/18 21:30 Temperature Pulse Rate 76 74 76 Respiratory Rate 22 21 21 Blood Pressure 153/110 H 152/72 H Pulse Oximetry 100 100 100 01/20/18 21:31 01/20/18 22:00 01/20/18 22:30 Temperature Pulse Rate 76 74 80 Respiratory Rate 20 21 22 Blood Pressure 153/82 H 166/80 H Pulse Oximetry 100 100 01/20/18 23:00 01/20/18 23:30 01/21/18 00:00 Temperature 102.7 F H Pulse Rate 80 78 80 Respiratory Rate 21 21 20 Blood Pressure 167/80 H 159/79 H 188/81 H Pulse Oximetry 100 100 100 01/21/18 00:11 01/21/18 00:30 01/21/18 00:46 Temperature Pulse Rate 84 85 Respiratory Rate 21 22 24 Blood Pressure 197/80 H 179/82 H Pulse Oximetry 100 100 100 01/21/18 01:00 01/21/18 01:30 01/21/18 02:00 Temperature Pulse Rate 84 81 89 Respiratory Rate 25 H 22 22 Blood Pressure 166/81 H 133/87 Pulse Oximetry 99 100 100 01/21/18 02:01 01/21/18 02:07 01/21/18 02:30 Temperature Pulse Rate 87 84 86 Respiratory Rate 23 24 23 Blood Pressure 171/77 H 178/84 H 193/86 H Pulse Oximetry 100 100 100 01/21/18 02:45 01/21/18 03:00 01/21/18 03:15 Temperature Pulse Rate 90 87 89 Respiratory Rate 24 24 26 H Blood Pressure 197/88 H 174/79 H 180/84 H Pulse Oximetry 100 100 100 01/21/18 03:20 01/21/18 03:30 01/21/18 03:45 Temperature Pulse Rate 87 87 88 Respiratory Rate 21 25 H 25 H Blood Pressure 175/79 H 161/72 H Pulse Oximetry 100 99 99 01/21/18 04:00 01/21/18 04:01 01/21/18 04:16 Temperature 100.1 F H Pulse Rate 92 H 87 88 Respiratory Rate 24 24 25 H Blood Pressure 181/71 H 169/70 H Pulse Oximetry 99 99 98 01/21/18 04:30 01/21/18 06:00 01/21/18 07:27 Temperature Pulse Rate 86 98 H Respiratory Rate 25 H 27 H Blood Pressure 157/82 H Pulse Oximetry 99 99 01/21/18 08:57 01/21/18 11:11 Temperature Pulse Rate 96 H Respiratory Rate 33 H 21 Blood Pressure Pulse Oximetry 99 Intake & Output 01/20/18 01/21/18 01/21/18 18:59 06:59 18:59 Intake Total 737 / 737 830 / 830 250 / 250 Output Total 1550 / 1550 1125 / 1125 Balance -813 / -813 -295 / -295 250 / 250 Weight 85.8 kg Intake: IV 400 / 400 250 / 250 Heparin/D5W 25,000 U/250 mL 25, 250 / 250 000 unit In 250 ml @ 1,000 UNITS/HR 10 mls/hr IV.CONT TITRATE PRN Rx#:[id number] Maxipime Inj 2,000 MG In NS Inj 200 / 200 100 ML @ 200 mls/hr IV.SIG Q24H BRIANNA Rx#:[id number] KCl 20 mEq Premix Inj 20 meq In 100 / 100 100 ml @ 50 mls/hr IV.SIG ONCE ONE Rx#:[id number] Tube Feeding 337 / 337 430 / 430 Water Bolus Amount 400 / 400 Output: Urine Amount (Catheter) 1550 / 1550 1125 / 1125 Indwelling Urethral Catheter 1550 / 1550 1125 / 1125 Other: Date of Last Bowel Movement 01/20/18 01/20/18 # Bowel Movements 1 # Incontinent Bowel Movements 2 Narrative: GENERAL: Orally intubated and off sedation. SKIN: Warm and dry. NECK: Supple, trachea midline. No JVD. CARDIOVASCULAR: Regular rate and rhythm without murmurs, gallops, or rubs. Right IJ central line. RESPIRATORY: Breath sounds equal bilaterally. No accessory muscle use. GASTROINTESTINAL: Abdomen soft, non-tender, nondistended. OG tube. GENITOURINARY: Indwelling Prince catheter, minimal light yellow urine. MUSCULOSKELETAL: No cyanosis, or edema. - Urinary Catheter Management Indwelling Urethral Catheter Cath placed during this visit: yes Reason for continuing: Chronic Urinary Retention Insertion date: 01/16/18 Insertion time: 17:30 Assessment and Plan - Assessment (1) Acute kidney injury Code(s): N17.9 - Acute kidney failure, unspecified Status: Acute Plan: Patient with Acute kidney injury and Hyperkalemia, Urine out put is low. Most likely has ATN due to hypotension, now BP is better, on Lasix 40 mg TID, K is low. Creatinine now started to improve, 3.8, K is low and replaced. non oliguric, urine out put is good after the Lasix was stopped. give Lasix PRN if needed. Follow the urine out put and BMP. Avoid Nephrotoxins. No improvement in Encephalopathy. D/W the and other family at bed side. (2) Sepsis Code(s): A41.9 - Sepsis, unspecified organism Status: Acute Plan: Blood cultures positive for gram negative rods, sensitivity pending. On Zosyn. (3) Acute UTI Code(s): N39.0 - Urinary tract infection, site not specified Status: Acute Plan: Has received Rocephin. Culture is pending. (4) Respiratory failure Code(s): J96.90 - Respiratory failure, unspecified, unspecified whether with hypoxia or hypercapnia Status: Acute Plan: Patient is intubated on very mild sedation.
--- NOTE | 2018-01-21 11:47 | P.PNPAL ---
Reason for Visit Reason for visit: a. To assist with evaluation and management of symptoms including: Encephalopathy, pain, dyspnea b. To assist medical decision maker(s) with: better understanding of current medical conditions; weighing benefits/burdens of medical treatment options; making medical treatment decisions. Subjective Subjective/Interval History: Pt seen today to follow up on comfort, possible family meeting regarding goals. Stable overnight. BUN increased to 101, creatinine slightly improved 3.89, UOP adequate. K+ 2.9 , repletion per nephrology. CBC stable/unremarkable. Repeat BC sent yesterday. Febrile, tmax overnight 102.7. No improvement in alertness- off sedation x 3 days. Nursing reports CPAP trial with tachypnea limiting trial this morning. LFTs slightly elevated 2 days ago, ammonia 18 today. Pt seen in room, son, grandson and at bedside. They endorse kidney dr was just in and informed them he is slightly improved. Briefly explore slight change in kidney function. Review overall condition not changed. D/w possible meeting with her , daughter and rest of family to further review conditions, tx options, and prognosis, and pt's wishes. She is expecting daughter shortly and would like to meet further then, she will call me when daughter arrives. Pt minimally responsive to exam. No eye opening. + Gag w ETT stimuli. No withdrawal to pain stimuli BUE. Slight foot flexion w pain stimuli BLE. Rt foot cont to be cooler than left, left is warm, though coloration is wnl bilaterally , pedal pulses faint palp. Family/Friend Interactions: later met w family at length, dual meeting radha Lakhani MSW, palliative geriatric social worker. (, sons, daughter, grandson) discussion included: -Palliative care role, purpose, approach review of medical, psychosocial hx review of Patients general health, functional status, and cognitive status leading up to the current hospitalization family understanding of the current medical problems; extensive review of hospital course thus far, review of diagnostics, tx in place family understanding of prognosis; review of possible trajectories and complications/setbacks possible Patients goals of care as best understood from advance directives and/or conversations and/or values Current medical treatment options and benefits/burdens of those options; review of possible trach/PEG if prolonged on vent Likely scenarios comparing ongoing aggressive care with a transition to `` comfort measures only- brief review of option for no further aggressive intervention if that was pt wishes CODE STATUS Legal decision makers Questions answered to the best of my ability Palliative care contact information provided Reviewed with family at length patient conditions, possible trajectories and prognosis. Reviewed potential complications and potential for prolonged hospitalization. Treatment options. Upon review of CODE STATUS they endorse that he should remain full code at this time. The endorse that he was generally healthy, active, and well prior to this hospitalization and they are hopeful that he could recover from this. They are open to ongoing conversations as clinical course evolves. Objective Vital Signs: Vital Signs 01/20/18 12:00 01/20/18 13:00 01/20/18 14:00 Temperature 101.9 F H Pulse Rate 85 84 97 H Respiratory Rate 24 31 H 25 H Blood Pressure 160/85 H 178/79 H Pulse Oximetry 100 98 99 01/20/18 14:28 01/20/18 14:36 01/20/18 15:00 Temperature Pulse Rate 82 85 81 Respiratory Rate 22 21 19 Blood Pressure 153/65 H Pulse Oximetry 99 99 01/20/18 15:01 01/20/18 15:19 01/20/18 15:30 Temperature Pulse Rate 78 73 Respiratory Rate 20 18 20 Blood Pressure 159/67 H 118/63 Pulse Oximetry 99 99 99 01/20/18 16:00 01/20/18 16:31 01/20/18 17:00 Temperature 98.4 F Pulse Rate 77 82 85 Respiratory Rate 20 21 21 Blood Pressure 137/68 170/74 H 150/65 H Pulse Oximetry 99 99 99 01/20/18 17:31 01/20/18 18:00 01/20/18 18:30 Temperature Pulse Rate 80 74 71 Respiratory Rate 22 21 21 Blood Pressure 169/79 H 132/68 139/61 Pulse Oximetry 100 100 100 01/20/18 19:00 01/20/18 19:01 01/20/18 19:24 Temperature Pulse Rate 81 78 Respiratory Rate 21 22 20 Blood Pressure 172/84 H Pulse Oximetry 100 100 99 01/20/18 19:30 01/20/18 20:00 01/20/18 20:30 Temperature 98.2 F Pulse Rate 79 81 79 Respiratory Rate 24 23 23 Blood Pressure 180/81 H 169/82 H 159/81 H Pulse Oximetry 99 99 100 01/20/18 21:00 01/20/18 21:01 01/20/18 21:30 Temperature Pulse Rate 76 74 76 Respiratory Rate 22 21 21 Blood Pressure 153/110 H 152/72 H Pulse Oximetry 100 100 100 01/20/18 21:31 01/20/18 22:00 01/20/18 22:30 Temperature Pulse Rate 76 74 80 Respiratory Rate 20 21 22 Blood Pressure 153/82 H 166/80 H Pulse Oximetry 100 100 01/20/18 23:00 01/20/18 23:30 01/21/18 00:00 Temperature 102.7 F H Pulse Rate 80 78 80 Respiratory Rate 21 21 20 Blood Pressure 167/80 H 159/79 H 188/81 H Pulse Oximetry 100 100 100 01/21/18 00:11 01/21/18 00:30 01/21/18 00:46 Temperature Pulse Rate 84 85 Respiratory Rate 21 22 24 Blood Pressure 197/80 H 179/82 H Pulse Oximetry 100 100 100 01/21/18 01:00 01/21/18 01:30 01/21/18 02:00 Temperature Pulse Rate 84 81 89 Respiratory Rate 25 H 22 22 Blood Pressure 166/81 H 133/87 Pulse Oximetry 99 100 100 01/21/18 02:01 01/21/18 02:07 01/21/18 02:30 Temperature Pulse Rate 87 84 86 Respiratory Rate 23 24 23 Blood Pressure 171/77 H 178/84 H 193/86 H Pulse Oximetry 100 100 100 01/21/18 02:45 01/21/18 03:00 01/21/18 03:15 Temperature Pulse Rate 90 87 89 Respiratory Rate 24 24 26 H Blood Pressure 197/88 H 174/79 H 180/84 H Pulse Oximetry 100 100 100 01/21/18 03:20 01/21/18 03:30 01/21/18 03:45 Temperature Pulse Rate 87 87 88 Respiratory Rate 21 25 H 25 H Blood Pressure 175/79 H 161/72 H Pulse Oximetry 100 99 99 01/21/18 04:00 01/21/18 04:01 01/21/18 04:16 Temperature 100.1 F H Pulse Rate 92 H 87 88 Respiratory Rate 24 24 25 H Blood Pressure 181/71 H 169/70 H Pulse Oximetry 99 99 98 01/21/18 04:30 01/21/18 06:00 01/21/18 07:27 Temperature Pulse Rate 86 98 H Respiratory Rate 25 H 27 H Blood Pressure 157/82 H Pulse Oximetry 99 99 01/21/18 08:57 01/21/18 11:11 Temperature Pulse Rate 96 H Respiratory Rate 33 H 21 Blood Pressure Pulse Oximetry 99 Intake & Output 01/20/18 01/21/18 01/21/18 18:59 06:59 18:59 Intake Total 737 / 737 830 / 830 250 / 250 Output Total 1550 / 1550 1125 / 1125 Balance -813 / -813 -295 / -295 250 / 250 Weight 85.8 kg Intake: IV 400 / 400 250 / 250 Heparin/D5W 25,000 U/250 mL 25, 250 / 250 000 unit In 250 ml @ 1,000 UNITS/HR 10 mls/hr IV.CONT TITRATE PRN Rx#:[id number] Maxipime Inj 2,000 MG In NS Inj 200 / 200 100 ML @ 200 mls/hr IV.SIG Q24H BRIANNA Rx#:[id number] KCl 20 mEq Premix Inj 20 meq In 100 / 100 100 ml @ 50 mls/hr IV.SIG ONCE ONE Rx#:[id number] Tube Feeding 337 / 337 430 / 430 Water Bolus Amount 400 / 400 Output: Urine Amount (Catheter) 1550 / 1550 1125 / 1125 Indwelling Urethral Catheter 1550 / 1550 1125 / 1125 Other: Date of Last Bowel Movement 01/20/18 01/20/18 # Bowel Movements 1 # Incontinent Bowel Movements 2 Physical Exam: CONSTITUTIONAL/GENERAL: This is an adequately nourished patient, tall. In no apparent distress, nonresponsive on mechanical vent. TUBES/LINES/DRAINS: Peripheral IV upper extremity, central line to IJ, Prince catheter, ET tube, OG tube, soft restraints bilaterally SKIN: No jaundice, rashes, or lesions. No wounds seen anteriorly. Skin warm and dry, however right foot is cool to the touch. Coloration normal. EYES: Pupils 2 mm questionable reaction to light. No scleral icterus. No injection or drainage. Fundi not examined. CARDIOVASCULAR: Irregular heart rate. A. fib viewed on bedside monitor. No murmur. No JVD. pedal pulses are faint. Right foot cool to the touch. RESPIRATORY/CHEST: Symmetric, unlabored respirations via ET tube mechanical vent. Clear to auscultation. Breath sounds equal bilaterally. GASTROINTESTINAL: Abdomen soft, nondistended. No hepato-splenomegaly, or palpable masses. Bowel sounds present. OG tube present, clamped. GENITOURINARY: Without palpable bladder distension. Prince catheter in place. Clear yellow urine with sediment MUSCULOSKELETAL: Extremities without clubbing, cyanosis, or edema. No joint effusion noted. No mottling or clubbing. Right foot cool to touch. NEUROLOGICAL: Nonresponsive to exam. slight withdrawal from feet to pain stimuli, no response from upper extremities. No eye opening. Pupils with questionable reaction to light, 2mm/pinpoint. PSYCHIATRIC: Unable to assess due to clinical condition, no obvious anxiety Diagnostic Tests Laboratory: Laboratory Results - last 72 hr 01/17/18 01/18/18 01/18/18 14:30 13:25 21:00 WBC RBC Hgb Hct MCV MCH MCHC RDW Plt Count MPV Prelim Diff (Auto) Neut % (Auto) Lymph % (Auto) [place] % (Auto) Eos % (Auto) Baso % (Auto) Neut # (Auto) Lymph # (Auto) [place] # (Auto) Eos # (Auto) Baso # (Auto) WBC Differential Seg Neuts % (Manual) Band Neuts % (Manual) Lymphocytes % (Manual) Monocytes % (Manual) Eosinophils % (Manual) Metamyelocytes % (Man) Myelocytes % (Man) Abs Neuts (Manual) Differential Comment Platelet Estimate Platelet Morphology APTT 69.3 H D 55.4 H D Puncture Site Patient Temperature O2 Saturation ABG pH ABG pCO2 ABG pO2 ABG HCO3 ABG O2 Content ABG Base Excess ABG Methemoglobin Hemoglobin Carboxyhemoglobin O2 Delivery Device Vent Setting Inspired O2 Critical Value Sodium Potassium Chloride Carbon Dioxide Anion Gap BUN Creatinine Estimated GFR Random Glucose Calcium Phosphorus Magnesium Total Bilirubin AST ALT Alkaline Phosphatase Ammonia Total Protein Albumin Ur Random Urea 632 U Random Urea/Creat 9.58 Urine Creatinine 66 01/19/18 01/19/18 01/19/18 05:00 05:00 05:00 WBC 14.9 H RBC 4.18 L Hgb 12.4 L Hct 36.8 L MCV 88.0 MCH 29.6 MCHC 33.6 RDW 14.8 Plt Count 127 L MPV 9.1 Prelim Diff (Auto) Neut % (Auto) Lymph % (Auto) [place] % (Auto) Eos % (Auto) Baso % (Auto) Neut # (Auto) Lymph # (Auto) [place] # (Auto) Eos # (Auto) Baso # (Auto) WBC Differential Seg Neuts % (Manual) Band Neuts % (Manual) Lymphocytes % (Manual) Monocytes % (Manual) Eosinophils % (Manual) Metamyelocytes % (Man) Myelocytes % (Man) Abs Neuts (Manual) Differential Comment Platelet Estimate Platelet Morphology APTT 53.5 H Puncture Site Patient Temperature O2 Saturation ABG pH ABG pCO2 ABG pO2 ABG HCO3 ABG O2 Content ABG Base Excess ABG Methemoglobin Hemoglobin Carboxyhemoglobin O2 Delivery Device Vent Setting Inspired O2 Critical Value Sodium 145 Potassium 3.4 L Chloride 111 H Carbon Dioxide 25.3 Anion Gap 9 BUN 76 H Creatinine 3.90 H Estimated GFR 15 L Random Glucose 172 H Calcium 8.4 L D Phosphorus Magnesium 2.2 Total Bilirubin 0.8 AST 72 H ALT 85 H Alkaline Phosphatase 197 H Ammonia Total Protein 6.7 D Albumin 1.8 L Ur Random Urea U Random Urea/Creat Urine Creatinine 01/20/18 01/20/18 01/20/18 05:05 05:05 05:05 WBC 12.5 H RBC 4.34 L Hgb 12.8 L Hct 37.5 L MCV 86.5 MCH 29.4 MCHC 34.0 RDW 15.1 Plt Count 142 L MPV 9.7 Prelim Diff (Auto) Slide review pending Neut % (Auto) 76.9 H Lymph % (Auto) 9.3 [place] % (Auto) 13.5 H Eos % (Auto) 0.2 Baso % (Auto) 0.1 Neut # (Auto) 9.6 H Lymph # (Auto) 1.2 [place] # (Auto) 1.7 H Eos # (Auto) 0.0 Baso # (Auto) 0.0 WBC Differential Manual diff final Seg Neuts % (Manual) 60 Band Neuts % (Manual) 13 H Lymphocytes % (Manual) 14 Monocytes % (Manual) 12 H Eosinophils % (Manual) Metamyelocytes % (Man) Myelocytes % (Man) 1 H Abs Neuts (Manual) 9.3 H Differential Comment . Platelet Estimate Low L Platelet Morphology Enlarged H APTT 49.7 H Puncture Site Patient Temperature O2 Saturation ABG pH ABG pCO2 ABG pO2 ABG HCO3 ABG O2 Content ABG Base Excess ABG Methemoglobin Hemoglobin Carboxyhemoglobin O2 Delivery Device Vent Setting Inspired O2 Critical Value Sodium 149 H Potassium 3.2 L Chloride 110 H Carbon Dioxide 27.6 Anion Gap 11 BUN 89 H Creatinine 4.19 H Estimated GFR 14 L Random Glucose 159 H Calcium 8.5 Phosphorus 3.6 Magnesium 2.2 Total Bilirubin AST ALT Alkaline Phosphatase Ammonia Total Protein Albumin Ur Random Urea U Random Urea/Creat Urine Creatinine 01/20/18 01/21/18 01/21/18 14:18 05:00 05:00 WBC 9.9 RBC 4.44 L Hgb 13.1 Hct 39.0 MCV 87.9 MCH 29.5 MCHC 33.6 RDW 16.0 Plt Count 159 MPV 9.4 Prelim Diff (Auto) Slide review pending Neut % (Auto) 67.9 Lymph % (Auto) 13.3 [place] % (Auto) 17.6 H Eos % (Auto) 0.8 Baso % (Auto) 0.4 Neut # (Auto) 6.7 Lymph # (Auto) 1.3 [place] # (Auto) 1.7 H Eos # (Auto) 0.1 Baso # (Auto) 0.0 WBC Differential Manual diff final Seg Neuts % (Manual) 65 Band Neuts % (Manual) 3 Lymphocytes % (Manual) 14 Monocytes % (Manual) 15 H Eosinophils % (Manual) 1 Metamyelocytes % (Man) 1 Myelocytes % (Man) 1 H Abs Neuts (Manual) 6.9 Differential Comment . Platelet Estimate Normal Platelet Morphology Normal APTT 44.4 H Puncture Site Art line Patient Temperature 98.6 O2 Saturation 97 ABG pH 7.50 H ABG pCO2 34 L ABG pO2 167 H ABG HCO3 26 ABG O2 Content 18.3 ABG Base Excess 3.2 H ABG Methemoglobin 1.5 Hemoglobin 13.2 Carboxyhemoglobin 0.7 O2 Delivery Device Ventilator Vent Setting Prvc/ac 550/18 Inspired O2 40 Critical Value No Sodium Potassium Chloride Carbon Dioxide Anion Gap BUN Creatinine Estimated GFR Random Glucose Calcium Phosphorus Magnesium Total Bilirubin AST ALT Alkaline Phosphatase Ammonia Total Protein Albumin Ur Random Urea U Random Urea/Creat Urine Creatinine 01/21/18 01/21/18 05:00 05:00 WBC RBC Hgb Hct MCV MCH MCHC RDW Plt Count MPV Prelim Diff (Auto) Neut % (Auto) Lymph % (Auto) [place] % (Auto) Eos % (Auto) Baso % (Auto) Neut # (Auto) Lymph # (Auto) [place] # (Auto) Eos # (Auto) Baso # (Auto) WBC Differential Seg Neuts % (Manual) Band Neuts % (Manual) Lymphocytes % (Manual) Monocytes % (Manual) Eosinophils % (Manual) Metamyelocytes % (Man) Myelocytes % (Man) Abs Neuts (Manual) Differential Comment Platelet Estimate Platelet Morphology APTT Puncture Site Patient Temperature O2 Saturation ABG pH ABG pCO2 ABG pO2 ABG HCO3 ABG O2 Content ABG Base Excess ABG Methemoglobin Hemoglobin Carboxyhemoglobin O2 Delivery Device Vent Setting Inspired O2 Critical Value Sodium 147 H Potassium 2.9 L* Chloride 107 Carbon Dioxide 28.7 Anion Gap 11 BUN 101 H Creatinine 3.84 H Estimated GFR 15 L Random Glucose 156 H Calcium 8.1 L Phosphorus 3.4 Magnesium 2.5 Total Bilirubin AST ALT Alkaline Phosphatase Ammonia 18 Total Protein Albumin Ur Random Urea U Random Urea/Creat Urine Creatinine Result Diagrams: 01/21/18 05:00 01/21/18 05:00 Microbiology: Microbiology 01/20/18 05:51 Aerobic Blood Culture - Preliminary Blood - Peripheral No growth in 1 day Anaerobic Blood Culture - Preliminary No growth in 1 day 01/20/18 06:01 Aerobic Blood Culture - Preliminary Blood - Peripheral No growth in 1 day Anaerobic Blood Culture - Preliminary No growth in 1 day 01/16/18 08:20 Aerobic Blood Culture - Final Blood - Peripheral Pseudomonas aeruginosa Anaerobic Blood Culture - Final No growth in 5 days 01/16/18 08:05 Aerobic Blood Culture - Final Blood - Peripheral Pseudomonas aeruginosa Anaerobic Blood Culture - Final Pseudomonas aeruginosa 01/16/18 06:28 Urine Culture - Final Catheterized Urine Pseudomonas aeruginosa Imaging: Impressions Head CT 01/21/18 12:18 CONCLUSION: 1. Abnormal left parietal occipital region. MRI suggested. . Procedures: 01/16 central line right IJ 01/16 intubated Assessment and Plan Pertinent Non-Medical Issues: Psychosocial: Born and raised in [place]. 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 Supported by , children, grandchildren as well as close friends. 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 Not clear if or when he will regain ability. Per [place] statutes his would be appropriate legal proxy. Ethical issues impacting care: No ethical issues identified. Important Contacts: Lanie Cheung [phone], isabel [phone] Prognosis: This patient was initially admitted with generalized symptoms of nausea, weakness but overall not feeling well. During hospital course has had worsening sepsis, multiorgan failure. He has recent diagnoses of bladder cancer. Given advanced age, Multiorgan issues, high risk for ongoing complications and setbacks. Code Status: Full Code Plan: Legal decision maker:Pt critically ill on mech vent, unable to participate in decision-making. Not clear if or when he will regain ability. Per [place] statutes his would be appropriate legal proxy. Goals: Reviewed with family at length patient conditions, possible trajectories and prognosis. Reviewed potential complications and potential for prolonged hospitalization. Treatment options. Upon review of CODE STATUS they endorse that he should remain full code at this time. The endorse that he was generally healthy, active, and well prior to this hospitalization and they are hopeful that he could recover from this, cont aggressive tx at this time. They are open to ongoing conversations as clinical course evolves. CODE STATUS:full code SYMPTOMS: --Dyspneaintubated, currently breathing comfortably on mechanical vent. CPAP trial this am resulted in tachypnea per nursing. Encephalopathic not likely to tolerate weaning at this time. History of COPD requiring CPAP of though had not used recently due to ill fitting. --Encephalopathy-multifactorial, metabolic. Multiorgan failure. Has not been on sedation for 3 days. Not arousing, not following commands. Consider CT brain r/o other contributing process. Ammonia 18. --Pain-currently with no signs or symptoms of pain, potential sources would include bedbound status, recent invasive procedures, including cystoscopy. No indications for pain medication at this time. We will continue to evaluate. Palliative care will continue to follow during hospital course as condition evolves, to assist patient/decision-maker with understanding of medical conditions, weighing benefits/burdens of treatment options, for clarification of goals of treatment. Additionally will assist with any symptoms of palliative concern Attestation Attestation: To help prompt me to consider important information that might be impacting today's encounter and assessment, information from prior notes written by myself or my colleagues may have been "brought forward" into today's note. My signature on this note, however, is an attestation that I personally performed the exam, history, and/or decision-making noted today, and, unless otherwise indicated, the interactions with patient, family, and staff as well as the review of records all occurred today. I also attest that the listed assessment and stated plan reflect my best clinical judgment today based on the combination of historical information, prior notes, and today's exam/ interactions. When time spent is documented, it refers only to time spent today by the signer, or if indicated, combined time spent today by collaborating physician/nurse practitioner.
--- NOTE | 2018-01-21 14:09 | CT ---
EXAM DATE: 01/21/2018 1:52 PM EST AGE/SEX: 82 years / Male INDICATIONS: Altered mental status CLINICAL DATA: This is the patient's initial encounter. Patient reports that signs and symptoms have been present for 1 day and indicates a pain score of Nonresponsive. MEDICAL/SURGICAL HISTORY: Carcinoma, bladder. Chronic obstructive pulmonary disease. Discectomy, c ervical. RADIATION DOSE: 44.31 CTDI (mGy) COMPARISON: [facility] [place], CT BRAIN W/O CONTRAST, 12/30/2012. . TECHNIQUE: CT of the head without contrast. Using automated exposure control and adjustment of the mA and/or kV according to patient size, radiation dose was kept as low as reasonably achievable to ob tain optimal diagnostic quality images. DICOM format image data is available electronically for revi ew and comparison. FINDINGS: The study is abnormal. There is an area of decreased density in the left occipital region sparing the cortex. Considerations would include a subacute ischemic process, neoplasm or inflammatory process. Right hemisphere is unremarkable. Posterior fossa appears normal. There are no extra-axial fluid collections appreciated. CONCLUSION: 1. Abnormal left parietal occipital region. MRI suggested. . Electronically signed by: Rachid Martinez MD 01/21/2018 2:07 PM EST
--- NOTE | 2018-01-21 14:42 | P.PNCC ---
Subjective Subjective Remarks/Hospital Course: Mr. Cheung is a 82-year-old male with bladder cancer, thoracic and abdominal aortic aneurysm, Bronchiectasis, Restrictive lung disease, COPD, on 2L of supplemental O2, history of congestive heart failure, Hyperlipidemia, HTN who recently underwent recent cystoscopy with meatal dilation about 4 days ago. According to Dr. 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 He underwent laser ablation of the tumor masses with biopsy along with laser lithotripsy and extraction of the right ureteral calculus. Bilateral stents were placed. Patient came to the ER today with symptoms of UTI and sepsis, altered mental status. UA showed evidence of UTI. Patient was started on Rocephin and admitted to hospitalist service. Over the course of the day patient clinically started deteriorating hypotensive with worsening encephalopathy hardly responsive. Patient was transferred to the ICU and critical care medicine was consulted. I evaluated the patient in the ICU he is very lethargic encephalopathy. Currently received 2 L normal saline bolus and had been started on Levophed currently at 12 mcg/min. Despite this patient is hypotensive. Initial ABG showed a pH of 7.25 PCO2 50 base excess -5 now slightly worse with pH of 7.23 PCO2 52. Due to severe sepsis and metabolic acidosis patient is not a candidate for BiPAP. WBC count of on admission was 14 with left shift now has worsened to 20.4. Initial lactic acid was 2,2 repeat lactic acid is pending at this time. Patient previously was sent home with indwelling Prince by Dr. Cabrera , he removed the Prince today. Patient has been oliguric and in renal failure. Will replace the Prince for strict hourly intake output SUBJ 01/17: Remains critical intubated sedated. Blood cultures all bottles growing gram-negative rods. Currently on Zosyn. Creatinine has worsened to 3, potassium is 6.2. Urine output has been marginal 10-15 mL/h. CVP is only 9. Fluid challenge with 1 L normal saline bolus and maintenance fluid 100 mL/h. Nephrology consulted, CMP at noon. Treatment for hyperkalemia ordered with IV insulin followed by dextrose, calcium, bicarb, Kayexalate and breathing treatments. 01/18: Remains critical, remains in multiorgan failure. Started on Lasix by nephrology yesterday urine output approximately 1 L, worsening BUN/creatinine 66 /3.74. Will discuss with nephrology regarding dialysis though there is no acute indication. WBC count slightly improved to 15.2. Patient developed A. fib with RVR yesterday, started on Cardizem infusion after bolus. Will DC Lovenox for DVT prophylaxis and start on IV heparin for persistent A. fib. 01/19: Patient continues on heparin and Cardizem infusion. WBC count slightly improved. Urine output increased 2 L in 12 hours last evening. Patient continues in A. fib but rate controlled will transition to p.o.. 01/20: T-max 101.0 Cardizem has been transition to p.o. 30 mg 4 times daily. The patient continues to fail CPAP trials. Urine output continues to increase. Continue continued improvement in WBC count. No change in neurological status , despite being off sedation greater than 48 hours continue to monitor. 01/21: Late entry note patient seen approximately at 11 AM .afebrile. Patient remains uncertain responsive despite> than 48 hours of discontinuation of Versed however patient noted to have an elevated creatinine so significantly less clearance of the prolonged Versed infusion stat labs being obtained ammonia level cortisol level. Neurology also has been consulted. Stat CT of the head obtained revealed abnormality in the left parietal occipital region, heparin placed on hold. Stat MRI is pending. Patient tolerating CPAP trials today greater than 2-1/2 hours thus far. Objective Vital Signs / I&O: Vital Signs 01/20/18 14:36 01/20/18 15:00 01/20/18 15:01 Temperature Pulse Rate 85 81 78 Respiratory Rate 21 19 20 Blood Pressure 153/65 H 159/67 H Pulse Oximetry 99 99 99 01/20/18 15:19 01/20/18 15:30 01/20/18 16:00 Temperature 98.4 F Pulse Rate 73 77 Respiratory Rate 18 20 20 Blood Pressure 118/63 137/68 Pulse Oximetry 99 99 99 01/20/18 16:31 01/20/18 17:00 01/20/18 17:31 Temperature Pulse Rate 82 85 80 Respiratory Rate 21 21 22 Blood Pressure 170/74 H 150/65 H 169/79 H Pulse Oximetry 99 99 100 01/20/18 18:00 01/20/18 18:30 01/20/18 19:00 Temperature Pulse Rate 74 71 81 Respiratory Rate 21 21 21 Blood Pressure 132/68 139/61 Pulse Oximetry 100 100 100 01/20/18 19:01 01/20/18 19:24 01/20/18 19:30 Temperature Pulse Rate 78 79 Respiratory Rate 22 20 24 Blood Pressure 172/84 H 180/81 H Pulse Oximetry 100 99 99 01/20/18 20:00 01/20/18 20:30 01/20/18 21:00 Temperature 98.2 F Pulse Rate 81 79 76 Respiratory Rate 23 23 22 Blood Pressure 169/82 H 159/81 H Pulse Oximetry 99 100 100 01/20/18 21:01 01/20/18 21:30 01/20/18 21:31 Temperature Pulse Rate 74 76 76 Respiratory Rate 21 21 20 Blood Pressure 153/110 H 152/72 H Pulse Oximetry 100 100 01/20/18 22:00 01/20/18 22:30 01/20/18 23:00 Temperature Pulse Rate 74 80 80 Respiratory Rate 21 22 21 Blood Pressure 153/82 H 166/80 H 167/80 H Pulse Oximetry 100 100 100 01/20/18 23:30 01/21/18 00:00 01/21/18 00:11 Temperature 102.7 F H Pulse Rate 78 80 Respiratory Rate 21 20 21 Blood Pressure 159/79 H 188/81 H Pulse Oximetry 100 100 100 01/21/18 00:30 01/21/18 00:46 01/21/18 01:00 Temperature Pulse Rate 84 85 84 Respiratory Rate 22 24 25 H Blood Pressure 197/80 H 179/82 H 166/81 H Pulse Oximetry 100 100 99 01/21/18 01:30 01/21/18 02:00 01/21/18 02:01 Temperature Pulse Rate 81 89 87 Respiratory Rate 22 22 23 Blood Pressure 133/87 171/77 H Pulse Oximetry 100 100 100 01/21/18 02:07 01/21/18 02:30 01/21/18 02:45 Temperature Pulse Rate 84 86 90 Respiratory Rate 24 23 24 Blood Pressure 178/84 H 193/86 H 197/88 H Pulse Oximetry 100 100 100 01/21/18 03:00 01/21/18 03:15 01/21/18 03:20 Temperature Pulse Rate 87 89 87 Respiratory Rate 24 26 H 21 Blood Pressure 174/79 H 180/84 H Pulse Oximetry 100 100 100 01/21/18 03:30 01/21/18 03:45 01/21/18 04:00 Temperature 100.1 F H Pulse Rate 87 88 92 H Respiratory Rate 25 H 25 H 24 Blood Pressure 175/79 H 161/72 H Pulse Oximetry 99 99 99 01/21/18 04:01 01/21/18 04:16 01/21/18 04:30 Temperature Pulse Rate 87 88 86 Respiratory Rate 24 25 H 25 H Blood Pressure 181/71 H 169/70 H 157/82 H Pulse Oximetry 99 98 99 01/21/18 06:00 01/21/18 07:27 01/21/18 08:57 Temperature Pulse Rate 98 H 96 H Respiratory Rate 27 H 33 H Blood Pressure Pulse Oximetry 99 01/21/18 11:11 Temperature Pulse Rate Respiratory Rate 21 Blood Pressure Pulse Oximetry 99 Intake & Output 01/20/18 01/21/18 01/21/18 18:59 06:59 18:59 Intake Total 737 / 737 830 / 830 250 / 250 Output Total 1550 / 1550 1125 / 1125 Balance -813 / -813 -295 / -295 250 / 250 Weight 85.8 kg Intake: IV 400 / 400 250 / 250 Heparin/D5W 25,000 U/250 mL 25, 250 / 250 000 unit In 250 ml @ 1,000 UNITS/HR 10 mls/hr IV.CONT TITRATE PRN Rx#:[id number] Maxipime Inj 2,000 MG In NS Inj 200 / 200 100 ML @ 200 mls/hr IV.SIG Q24H BRIANNA Rx#:[id number] KCl 20 mEq Premix Inj 20 meq In 100 / 100 100 ml @ 50 mls/hr IV.SIG ONCE ONE Rx#:[id number] Tube Feeding 337 / 337 430 / 430 Water Bolus Amount 400 / 400 Output: Urine Amount (Catheter) 1550 / 1550 1125 / 1125 Indwelling Urethral Catheter 1550 / 1550 1125 / 1125 Other: Date of Last Bowel Movement 01/20/18 01/20/18 # Bowel Movements 1 # Incontinent Bowel Movements 2 Result Diagrams: 01/23/18 03:21 01/23/18 03:21 Other Results: Laboratory Results WBC 9.9 th/mm3 (4.0-11.0) 01/21/18 05:00 RBC 4.44 mil/mm3 (4.50-5.90) L 01/21/18 05:00 Hgb 13.1 gm/dL (13.0-17.0) 01/21/18 05:00 Hct 39.0 % (39.0-51.0) 01/21/18 05:00 MCV 87.9 fL (80.0-100.0) 01/21/18 05:00 MCH 29.5 pg (27.0-34.0) 01/21/18 05:00 MCHC 33.6 % (32.0-36.0) 01/21/18 05:00 RDW 16.0 % (11.6-17.2) 01/21/18 05:00 Plt Count 159 th/mm3 (150-450) 01/21/18 05:00 MPV 9.4 fL (7.0-11.0) 01/21/18 05:00 Prelim Diff (Auto) Slide review pending 01/21/18 05:00 Neut % (Auto) 67.9 % (16.0-70.0) 01/21/18 05:00 Lymph % (Auto) 13.3 % (9.0-44.0) 01/21/18 05:00 [place] % (Auto) 17.6 % (0.0-8.0) H 01/21/18 05:00 Eos % (Auto) 0.8 % (0.0-4.0) 01/21/18 05:00 Baso % (Auto) 0.4 % (0.0-2.0) 01/21/18 05:00 Neut # (Auto) 6.7 th/mm3 (1.8-7.7) 01/21/18 05:00 Lymph # (Auto) 1.3 th/mm3 (1.0-4.8) 01/21/18 05:00 [place] # (Auto) 1.7 th/mm3 (0.0-0.9) H 01/21/18 05:00 Eos # (Auto) 0.1 th/mm3 (0.0-0.4) 01/21/18 05:00 Baso # (Auto) 0.0 th/mm3 (0.0-0.2) 01/21/18 05:00 WBC Differential Manual diff final 01/21/18 05:00 Seg Neuts % (Manual) 65 % (16-70) 01/21/18 05:00 Band Neuts % (Manual) 3 % (0-6) 01/21/18 05:00 Lymphocytes % (Manual) 14 % (9-44) 01/21/18 05:00 Monocytes % (Manual) 15 % (0-8) H 01/21/18 05:00 Eosinophils % (Manual) 1 % (0-4) 01/21/18 05:00 Metamyelocytes % (Man) 1 % (0-1) 01/21/18 05:00 Myelocytes % (Man) 1 % (0-0) H 01/21/18 05:00 Abs Neuts (Manual) 6.9 th/mm3 (1.8-7.7) 01/21/18 05:00 Differential Comment . 01/21/18 05:00 Toxic Vacuolation Present (None) H 01/16/18 15:50 Platelet Estimate Normal (Normal) 01/21/18 05:00 Platelet Morphology Normal (Normal) 01/21/18 05:00 RBC Morphology Normal (Normal) 01/16/18 15:50 PT 11.9 sec (9.8-11.6) H 01/18/18 07:50 INR 1.2 Ratio 01/18/18 07:50 APTT 44.4 sec (23.4-31.7) H 01/21/18 05:00 Puncture Site Art line 01/20/18 14:18 Patient Temperature 98.6 01/20/18 14:18 O2 Saturation 97 % (90-100) 01/20/18 14:18 ABG pH 7.50 (7.380-7.420) H 01/20/18 14:18 ABG pCO2 34 mmHg (38-42) L 01/20/18 14:18 ABG pO2 167 mmHG (61-120) H 01/20/18 14:18 ABG HCO3 26 mmol/L (22-26) 01/20/18 14:18 ABG O2 Content 18.3 Vol % (12.0-20.0) 01/20/18 14:18 ABG Base Excess 3.2 mmol/L (-2-2) H 01/20/18 14:18 ABG Methemoglobin 1.5 % (0-2) 12/04/18 14:18 Mg Test Present 01/16/18 16:20 Hemoglobin 13.2 G/DL (12.0-16.0) 01/20/18 14:18 Carboxyhemoglobin 0.7 % (0-4) 01/20/18 14:18 O2 Delivery Device Ventilator 01/20/18 14:18 Liter Flow 15.00 L/M 01/16/18 16:20 Vent Setting Prvc/ac 550/18 01/20/18 14:18 Inspired O2 40 % 01/20/18 14:18 Critical Value No 01/20/18 14:18 Sodium 147 meq/L (136-145) H 01/21/18 05:00 Potassium 2.9 meq/L (3.5-5.1) L* 01/21/18 05:00 Chloride 107 meq/L (98-107) 01/21/18 05:00 Carbon Dioxide 28.7 meq/L (21.0-32.0) 01/21/18 05:00 Anion Gap 11 meq/L (5-15) 01/21/18 05:00 BUN 101 mg/dL (7-18) H 01/21/18 05:00 Creatinine 3.84 mg/dL (0.60-1.30) H 01/21/18 05:00 Estimated GFR 15 mL/min (>89) L 01/21/18 05:00 POC Glucose 125 mg/dl (68-110) H 01/16/18 16:00 Random Glucose 156 mg/dL (74-106) H 01/21/18 05:00 Lactic Acid 2.3 mmol/L (0.4-2.0) H 01/16/18 18:26 Calcium 8.1 mg/dL (8.5-10.1) L 01/21/18 05:00 Calcium Adj for Albumin 7.9 mg/dL (8.5-10.1) L 01/18/18 03:00 Phosphorus 3.4 mg/dL (2.5-4.9) 01/21/18 05:00 Magnesium 2.5 mg/dL (1.5-2.5) 01/21/18 05:00 Total Bilirubin 0.8 mg/dL (0.2-1.0) 01/19/18 05:00 AST 72 U/L (15-37) H 01/19/18 05:00 ALT 85 U/L (12-78) H 01/19/18 05:00 Alkaline Phosphatase 197 U/L (45-117) H 01/19/18 05:00 Ammonia 18 mcmol/L (11-32) 01/21/18 05:00 Total Creatine Kinase 71 U/L (39-308) 01/17/18 03:30 Troponin I 0.24 ng/mL (0.02-0.05) H 01/17/18 03:30 Total Protein 6.7 g/dL (6.4-8.2) D 01/19/18 05:00 Albumin 1.8 g/dL (3.4-5.0) L 01/19/18 05:00 Lipase 56 U/L (73-393) L 01/16/18 04:29 Urine Color Sharifa (Yellw/Straw) 01/16/18 06:28 Urine Clarity Cloudy (Clear) H 01/16/18 06:28 Urine pH 5.0 (5.0-8.5) 01/16/18 06:28 Ur Specific [place] 1.021 (1.002-1.035) 01/16/18 06:28 Urine Protein 100 mg/dL (Neg-Trace) H 01/16/18 06:28 Urine Glucose (UA) Negative mg/dL (Negative) 01/16/18 06:28 Urine Ketones Negative mg/dL (Negative) 01/16/18 06:28 Urine Occult Blood Large (Negative) H 01/16/18 06:28 Urine Nitrate Negative (Negative) 01/16/18 06:28 Urine Bilirubin Negative (Negative) 01/16/18 06:28 Urine Urobilinogen 2.0 mg/dL (Less than 2) H 01/16/18 06:28 Ur Leukocyte Esterase Large (Negative) H 01/16/18 06:28 Urine RBC /hpf (0-3) 01/16/18 06:28 Urine WBC /hpf (0-5) 01/16/18 06:28 Amorphous Sediment Rare /hpf (None) H 01/16/18 06:28 Urine Bacteria Many /hpf (None) H 01/16/18 06:28 Hyaline Casts 12 /lpf (0-3) 01/16/18 06:28 Urine Mucus Few /lpf (Occasional) H 01/16/18 06:28 Micro UA Comment Cath-culture ind 01/16/18 06:28 Ur Microscopic Review Not Reportable 01/16/18 06:28 Urine Culture Comments Cath-cult indicated 01/16/18 06:28 Urine Osmolality 356 mosm/kg (300-1300) 01/17/18 14:30 Ur Random Urea 632 mg/dL 01/17/18 14:30 U Random Urea/Creat 9.58 mg/dL 01/17/18 14:30 Urine Creatinine 66 mg/dL 01/17/18 14:30 Impressions Abdomen/Pelvis CT 01/16/18 04:21 CONCLUSION: 1. Bilateral ureteral stents are in place and there is mild distention of the collecting systems bilaterally. Both kidneys enhance heterogeneously. 2. 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 Chest X-Ray 01/20/18 04:00 CONCLUSION: Improvement in the areas of basilar consolidation. Head CT 01/21/18 12:18 CONCLUSION: 1. Abnormal left parietal occipital region. MRI suggested. . Objective Remarks: GENERAL: Elderly 82-year-old male who is encephalopathic currently intubated SKIN: Poorly perfused. Moderate bruising noted bilateral upper and lower extremities HEENT: Atraumatic. Normocephalic. Pupils equal and round. No scleral icterus. No injection or drainage, edentulous. Intubated NECK: Trachea midline. No JVD. CARDIO: Atrial fibrillation rate controlled. Left upper chest pacemaker in place. RESP: Air entry equal bilaterally with bilateral crackles. No wheezes or rhonchi ABD: +BS, soft, non-tender, nondistended. Bilateral flank tenderness on deep palpation EXT: Extremities without clubbing, cyanosis, or edema. Poorly perfused NEURO: Intubated, Versed discontinued 01/18 @9 AM. Moves extremities weakly. Withdraws extremities x4 with deep stimulation,does not follow commands. 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 Status post recent right ureteroscopy with laser lithotripsy of distal ureteral calculus Status post bilateral ureteral stent placement AAA/Thoracic aortic aneurysm Bronchiectasis/Restrictive lung disease/COPD, chronically on 2L of supplemental O2 CHF Hyperlipidemia HTN Encephalopathy PLAN: NEURO: -Versed discontinued 01/18 , still unresponsive-to pain. Currently all sedation off. Concern for metabolism of Versed being prolonged in the setting of a elevated creatinine. Will await recommendations from neurology ,consider of Romazicon -Obtain EEGfollow-up result -Obtain cortisol level -01/21 CT brain-abnormality left parietal occipital region. -Follow-up stat MRI -Altered mental status/encephalopathy secondary to metabolic encephalopathy and severe sepsis -Continue sedation vacation -Trend ammonia level RESP: -Emergently intubated and placed on mechanical ventilation for worsening metabolic acidosis altered mental status and hypoxia -PRVC/AC, Ventilator bundle -DuoNeb every 6 hours scheduled and as needed -Continue CPAP trials, much improved , toleration greater than 2.5-hours -day 6 ETT-gated discussion regarding possible tracheostomy, palliative care following CV: -Developed A. fib with RVR 01/17/2018. Cardizem 30 mg 4 times daily initiated. Will resume carvedilol if tolerated/hemodynamically stable -Currently rate controlled but remains in A. fib, continue IV heparin -s/p Normal saline IV fluids 4L bolus since ICU admission and currently on normal saline maintenance fluid -Started on Lasix 40 mg 3 times daily by nephrology. Diuresis 2 L in the last 12 hours overnight -Keep MAP > 65, Levophed and vasopressin discontinued 01/18 -2D echo 07/24/17: Estimated EF 45-50%, abnormal LV diastolic function, mild to moderate AR GI: -Tube feeds with Nepro, IV famotidine -Bowel regimen : -Monitor renal function closely. Prince catheter. Patient's previous indwelling catheter was removed by Dr. Feliciano 01/16/18 -Urology Dr. Feliciano is following -Nephrology Dr. Duarte following for for worsening oliguric renal failure creatinine -Lasix 40 mg IV 3 times daily. Patient may need hemodialysis -CT of abdomen pelvis on admission showed bilateral ureteral stents are in place and there is mild distention of the collecting systems bilaterally. ID: -Antibiotics Zosyn renally dosed, received vancomycin 1 dose -Blood urine and sputum cultures. Blood culture growing gram-negative rods and 3 out of 4 bottles-pseudomonas growing -ID consulted-Dr. Foster following -urine culture Pseudomonas -01/21 Resolution of leukocytosis and bandemia HEME: -Monitor CBC, coags ENDO: -Upon admission ,hyperkalemia treatment with IV insulin, IV bicarb, IV calcium, breathing treatment and Kayexalate -SSI PROPH: -Bilateral lower extremity SCDs. No pharmacological DVT pharmacologic prophylaxis at this time. famotidine LINES: -Right IJ central line placed 01/16/2018. Respiratory therapist placed art line 01/16/18-central line and arterial line discontinued 01/20 Palliative care has been consulted to define goals of care My billing statement This patient remains critically ill with one or more organ systems which are or may become a threat to life. I have spent in excess of 33 minutes discontinuously in the care and management of this patient. This time is exclusive of procedures, and includes, but is not limited to, evaluation of the patient, review of the medical record, discussions with family, consultants, nursing staff, or respiratory therapy, and documentation in the medical record. Code Status: Full Discussed Condition With: Attempts made to telephone Mrs. Cheung at cell phone and home phone contact unsuccessful to provide medical status update. Discussed with STRATEGIC PLANNING CONSULTANT at bedside
--- NOTE | 2018-01-21 17:07 | MB ---
cc: Den Kemp MD DATE: 01/21/2018 HISTORY OF PRESENT ILLNESS: An 82-year-old right-handed man with hypertension, hypercholesterolemia, pacemaker, COPD, bladder cancer, recently kidney stones. He had his catheter removed from his penis apparently and had nausea and vomiting after that. Evidently some history of atrial fibrillation and came in the hospital, was subsequently intubated and the nurse tells me that the sedatives were removed 3 days ago and he has not awoken. REVIEW OF SYSTEMS: According to the family, no diabetes. No history of SD or CABG, hepatic disease, thyroid disease, lupus, ulcer, seizure or stroke. SOCIAL HISTORY: He is not a smoker, but he did for 30 years. Occasionally has a drink. Lives with his . FAMILY HISTORY: Very strong for cancer. Negative for seizure or stroke. MEDICATIONS AT HOME: 1. Neurontin 300 b.i.d. 2. Oxygen. 3. Clonidine 4. Amlodipine. 5. Albuterol. 6. Tamsulosin. 7. Naproxen. 8. Isosorbide. 9. Lasix 10 mg. 10. Escitalopram. 11. Carvedilol. 12. Atorvastatin. CURRENT MEDICATIONS: 1. Tylenol. 2. Norvasc. 3. Lipitor. 4. Coreg. 5. Cefepime. 6. Cardizem. 7. Lexapro 10 a day. 8. Gabapentin 300 b.i.d. 9. He is on IV heparin drip. 10. Apresoline. 11. Imdur. 12. Zofran. 13. He was on Diprivan but not currently. 14. Flomax. PHYSICAL EXAMINATION: VITAL SIGNS: On exam, 91, his T-max was 102.7, 17, blood pressure 157/82. Initial blood pressure 207/83. NECK: There were no carotid bruits. HEART: Regular rate and rhythm. I did not detect a murmur. GENERAL: He is intubated. The pupils are small, but symmetric bilaterally. NEUROLOGIC: No response to voice. Initially, not much of a responds to painful stimulation; however, deep nasal stimulation, he had appropriate reaction bilaterally. A little bit more with turning his head to the left than to the right. Then with pain stimulation and a pinch, he withdrew his head to the other side a little bit and shrugged his shoulders up. He is flaccid throughout; however, no ankle clonus. Toes are mute. DTRs absent throughout. No response to voice. NECK: Supple. HEENT: Doll's eyes but normal, although somewhat sluggish. LABORATORY DATA: White count is 9.9, it had been up to 20,000, hematocrit normal, platelet count normal. UA has large amount of leukocyte esterase, many white cells. Basic metabolic profile: Potassium is 2.9, his creatinine is 3.8 and had been 1.78 when he came in. Yesterday it was 4.2. His BUN is 101. It had been 30 when he came in. Glucose 156. LFT slightly elevated at 85. Ammonia level is 18. Albumin is 1.8. Blood gas yesterday 7.5, 34, 167. His worst ABG 7.2, 352, 173 on 01/16/2018. Coagulation studies: His PTT is up. His INR was normal several days ago. He had a CAT scan of his brain done. On view of those films, it looks like he has a hemorrhagic infarct in the left occipital lobe, moderate size, done today. 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 We should check an echocardiogram on him. I note he has a pacemaker in, so cannot have an MRI. Again, abscess could be considered. I think less likely. We will repeat his CAT scan in the morning. His blood urea nitrogen and creatinine are very high and that could have something to do with the fact that he is so lethargic. Possibility that he does have a small stroke could also be entertained as he has not woken up after 3 days of sedatives off. I will try to get his blood urea nitrogen down. We will follow up electroencephalogram results. Check a B12 and thyroid level. Recommend coming off the intravenous heparin at this point as there is some hemorrhagic change. I note he had sepsis, so endocarditis could be entertained. MD FIGUEROA Zhao/mark , 04:33 PM , 04:44 PM
[2018-01-21 19:37] LABS: Thyroid Stimulating Hormone 6.06 uIU/mL (0.358-3.740)
[2018-01-21] MEDS ORDERED: Potassium Chloride 25 MEQ Effervescent Tablet PO ONE (20:06)
[2018-01-22 03:18] LABS: Baso % (Auto) 0.2 % (0.0-2.0); Eos # (Auto) 0.2 th/mm3 (0.0-0.4); Eos % (Auto) 1.4 % (0.0-4.0); Hematocrit 39.8 % (39.0-51.0); Hemoglobin 13.6 gm/dL (13.0-17.0); Lymph # (Auto) 1.3 th/mm3 (1.0-4.8); Lymph % (Auto) 10.8 % (9.0-44.0); Mean Corpuscular HGB Conc 34.1 % (32.0-36.0); Mean Corpuscular Hemoglobin 29.2 pg (27.0-34.0); Mean Corpuscular Volume 85.7 fL (80.0-100.0); Mean Platelet Volume 10.1 fL (7.0-11.0); Mono # (Auto) 1.9 th/mm3 (0.0-0.9); Mono % (Auto) 15.2 % (0.0-8.0); Neut % (Auto) 72.4 % (16.0-70.0); Platelet Count 188 th/mm3 (150-450); Red Blood Count 4.64 mil/mm3 (4.50-5.90); Red Cell Distribution Width 15.3 % (11.6-17.2); White Blood Count 12.4 th/mm3 (4.0-11.0)
[2018-01-22 03:29] LABS: Carbon Dioxide 31.5 meq/L (21.0-32.0); Magnesium 2.7 mg/dL (1.5-2.5); Phosphorus 2.7 mg/dL (2.5-4.9); Potassium 3.4 meq/L (3.5-5.1)
[2018-01-22] MEDS: Oral Hygiene Kit OROPHARYNG SCH ×4 (04:00→17:26)
[2018-01-22 05:04] LABS: Lymphocytes 12 % (9-44); Monocytes 12 % (0-8); Myelocytes 2 % (0-0)
[2018-01-22 05:06] LABS: Platelet Estimate Normal (Normal); Platelet Morphology Normal (Normal); Toxic Granulation 1+
[2018-01-22 05:10] LABS: Dohle Bodies Present
[2018-01-22] MEDS: hydrALAZINE HCl Inj 20 MG/ML Vial IV.PUSH PRN ×3 (06:32→17:27)
--- NOTE | 2018-01-22 06:50 | P.PNNEU ---
Subjective Active Medications: Active Medications Acetaminophen (Tylenol) 650 mg PO Q4H PRN PRN Reason: Temp > 100.4 Last Admin: 01/21/18 00:59 Dose: 650 mg Al Hydroxide/Mg Hydroxide (Milk Of Magn[place]s Liq) 30 ml PO Q12H PRN PRN Reason: Mild Constipation Albuterol (Duoneb Neb (Prn)) 1 ampul NEB Q4HR NEB PRN PRN Reason: SOB/wheezing Albuterol (Duoneb Neb (Nisha)) 1 ampul NEB Q6HR NEB [facility] Last Admin: 01/22/18 03:19 Dose: 1 ampul Amlodipine Besylate (Norvasc) 10 mg PO DAILY [facility] Last Admin: 01/16/18 09:19 Dose: 10 mg Atorvastatin Calcium (Lipitor) 10 mg PO DAILY [facility] Last Admin: 01/21/18 08:24 Dose: 10 mg Bisacodyl (Dulcolax Supp) 10 mg RECTAL DAILY PRN PRN Reason: SEVERE CONSITIPATION Carvedilol (Coreg) 6.25 mg PO BID [facility] Last Admin: 01/16/18 09:18 Dose: 6.25 mg Chlorhexidine Gluconate (Peridex 0.12% Oral Kit) 15 ml OROPHARYNG BID@0800, 2000 [facility] Last Admin: 01/21/18 20:21 Dose: 15 ml Diltiazem HCl (Cardizem) 30 mg PO QID [facility] Last Admin: 01/21/18 20:21 Dose: 30 mg Escitalopram Oxalate (Lexapro) 10 mg PO DAILY [facility] Last Admin: 01/16/18 09:18 Dose: 10 mg Famotidine (Pepcid Pf Inj) 10 mg IV.PUSH Q12HR [facility] Last Admin: 01/21/18 20:20 Dose: 10 mg Gabapentin (Neurontin) 300 mg PO BID [facility] Last Admin: 01/16/18 09:19 Dose: 300 mg Hydralazine HCl (Apresoline Inj) 10 mg IV.PUSH Q6H PRN PRN Reason: SEE LABEL COMMENTS Last Admin: 01/22/18 06:32 Dose: 10 mg Propofol (Diprivan 1000 Mg/100 Ml Inj) 1,000 mg in 100 mls @ 2.784 mls/hr IV.CONT TITRATE PRN; Protocol PRN Reason: Per Protocol Cefepime HCl 2,000 mg/ Sodium (Chloride) 100 mls @ 200 mls/hr IV.SIG Q24H [facility] Last Infusion: 01/21/18 18:31 Dose: Infused Isosorbide Mononitrate (Imdur) 30 mg PO DAILY [facility] Last Admin: 01/16/18 09:18 Dose: 30 mg Lactulose (Lactulose Liq) 30 ml PO DAILY PRN PRN Reason: SEVERE CONSITIPATION Lactulose (Lactulose Liq) 30 ml PO BID [facility] Last Admin: 01/21/18 20:22 Dose: Not Given Miscellaneous Medication () 1 each OROPHARYNG 0000,0400,1200,1600 [facility] Last Admin: 01/22/18 04:00 Dose: 1 each Ondansetron HCl (Zofran Inj) 4 mg IV.PUSH Q6H PRN PRN Reason: NAUSEA OR VOMITING Senna/Docusate Sodium (Bel-Colace) 1 tab PO BID [facility] Last Admin: 01/21/18 20:22 Dose: Not Given Sennosides (Senokot) 17.2 mg PO Q12H PRN PRN Reason: Moderate Constipation Sodium Chloride (Ns Flush) 2 ml IV.FLUSH BID [facility] Last Admin: 01/21/18 20:20 Dose: 2 ml Sodium Chloride (Ns Flush) 2 ml IV.FLUSH PRN PRN PRN Reason: FLUSH AFTER USING IV ACCESS Tamsulosin HCl (Flomax) 0.4 mg PO HS [facility] Last Admin: 01/21/18 20:21 Dose: Not Given Allergies/Adverse Reactions: Allergies Allergy/AdvReac Type Severity Reaction Status Date / Time No Known Allergies Allergy Verified 01/02/18 12:33 Physical Exam Vital signs: Vital Signs 01/21/18 07:15 01/21/18 07:27 01/21/18 07:31 Temperature Pulse Rate 88 90 Respiratory Rate 21 27 H 30 H Blood Pressure 193/84 H Pulse Oximetry 99 99 99 01/21/18 07:33 01/21/18 07:45 01/21/18 08:00 Temperature Pulse Rate 93 H 97 H 91 H Respiratory Rate 31 H 31 H 32 H Blood Pressure 174/79 H 172/89 H 165/84 H Pulse Oximetry 99 99 99 01/21/18 08:39 01/21/18 08:44 01/21/18 08:50 Temperature Pulse Rate 93 H 92 H 90 Respiratory Rate 31 H 32 H 33 H Blood Pressure 191/75 H 186/86 H 160/72 H Pulse Oximetry 99 99 98 01/21/18 08:57 01/21/18 09:00 01/21/18 09:01 Temperature Pulse Rate 96 H 96 H 95 H Respiratory Rate 33 H 25 H 24 Blood Pressure 171/74 H Pulse Oximetry 98 97 01/21/18 09:10 01/21/18 09:15 01/21/18 09:30 Temperature Pulse Rate 90 87 87 Respiratory Rate 23 23 21 Blood Pressure 142/66 H 155/72 H 124/58 L Pulse Oximetry 98 98 98 01/21/18 10:00 01/21/18 11:00 01/21/18 11:11 Temperature Pulse Rate 87 90 Respiratory Rate 22 20 21 Blood Pressure 152/80 H 143/67 H Pulse Oximetry 98 98 99 01/21/18 12:00 01/21/18 13:00 01/21/18 13:01 Temperature Pulse Rate 92 H 87 88 Respiratory Rate 26 H 24 23 Blood Pressure 159/74 H 158/69 H Pulse Oximetry 99 99 99 01/21/18 13:30 01/21/18 14:00 01/21/18 15:00 Temperature Pulse Rate 89 84 Respiratory Rate 36 H 19 Blood Pressure Pulse Oximetry 100 99 99 01/21/18 15:02 01/21/18 15:23 01/21/18 15:24 Temperature Pulse Rate 88 91 H Respiratory Rate 19 17 18 Blood Pressure 162/77 H Pulse Oximetry 99 99 01/21/18 16:00 01/21/18 16:09 01/21/18 16:10 Temperature Pulse Rate 91 H 89 94 H Respiratory Rate 17 19 17 Blood Pressure 190/79 H 164/70 H Pulse Oximetry 100 100 99 01/21/18 17:00 01/21/18 17:55 01/21/18 18:00 Temperature Pulse Rate 94 H 97 H 93 H Respiratory Rate 17 19 18 Blood Pressure 177/107 H 169/80 H 157/93 H Pulse Oximetry 99 100 100 01/21/18 19:00 01/21/18 19:38 01/21/18 20:00 Temperature 100.0 F H Pulse Rate 90 90 90 Respiratory Rate 20 21 26 H Blood Pressure 169/81 H 172/75 H Pulse Oximetry 100 100 99 01/21/18 22:00 12/06/18 00:00 01/22/18 02:00 Temperature 100.3 F H Pulse Rate 89 93 H 98 H Respiratory Rate 22 Blood Pressure 170/79 H Pulse Oximetry 98 01/22/18 03:20 01/22/18 03:22 01/22/18 04:00 Temperature 99.8 F H Pulse Rate 86 100 H Respiratory Rate 22 22 21 Blood Pressure 148/63 H Pulse Oximetry 98 98 01/22/18 06:00 Temperature Pulse Rate 99 H Respiratory Rate Blood Pressure Pulse Oximetry Intake & Output 01/21/18 01/21/18 01/22/18 06:59 18:59 06:59 Intake Total 830 / 830 1170 / 1170 914 / 914 Output Total 1125 / 1125 2125 / 2125 1100 / 1100 Balance -295 / -295 -955 / -955 -186 / -186 Weight 85.8 kg 82.8 kg Intake: IV 510 / 510 Heparin/D5W 25,000 U/250 mL 25, 310 / 310 000 unit In 250 ml @ 1,000 UNITS/HR 10 mls/hr IV.CONT TITRATE PRN Rx#:[id number] Maxipime Inj 2,000 MG In NS Inj 100 / 100 100 ML @ 200 mls/hr IV.SIG Q24H NISHA Rx#:[id number] KCl 20 mEq Premix Inj 20 meq In 100 / 100 100 ml @ 50 mls/hr IV.SIG ONCE ONE Rx#:[id number] Oral 0 / 0 Tube Feeding 430 / 430 360 / 360 714 / 714 Tube Irrigant 200 / 200 Water Bolus Amount 400 / 400 300 / 300 Output: Urine 1000 / 1000 Urine Amount (Catheter) 1125 / 1125 1125 / 1125 1100 / 1100 Indwelling Urethral Catheter 1125 / 1125 1125 / 1125 1100 / 1100 Other: Date of Last Bowel Movement 01/20/18 01/21/18 01/21/18 # Bowel Movements 1 # Incontinent Bowel Movements 2 2 1 Narrative: awakens and wiggled r toes for me not left opens eyes a little - Urinary Catheter Management Indwelling Urethral Catheter Cath placed during this visit: yes Reason for continuing: Chronic Urinary Retention Insertion date: 01/16/18 Insertion time: 17:30 Objective Laboratory Results - last 24 hr 12/07/0401/21/18 01/21/18 05:00 16:25 16:25 WBC RBC Hgb Hct MCV MCH MCHC RDW Plt Count MPV Prelim Diff (Auto) Neut % (Auto) Lymph % (Auto) Louisa % (Auto) Eos % (Auto) Baso % (Auto) Neut # (Auto) Lymph # (Auto) Louisa # (Auto) Eos # (Auto) Baso # (Auto) WBC Differential Manual diff final Seg Neuts % (Manual) 65 Band Neuts % (Manual) 3 Lymphocytes % (Manual) 14 Monocytes % (Manual) 15 H Eosinophils % (Manual) 1 Metamyelocytes % (Man) 1 Myelocytes % (Man) 1 H Abs Neuts (Manual) 6.9 Differential Comment Toxic Granulation Dohle Bodies Platelet Estimate Normal Platelet Morphology Normal Sodium Potassium Chloride Carbon Dioxide Anion Gap BUN Creatinine Estimated GFR Random Glucose Calcium Phosphorus Magnesium Ammonia 19 Vitamin B12 TSH Thyroxine (T4) Cortisol 45.9 01/21/18 01/21/18 01/22/18 16:25 16:25 02:46 WBC RBC Hgb Hct MCV MCH MCHC RDW Plt Count MPV Prelim Diff (Auto) Neut % (Auto) Lymph % (Auto) Louisa % (Auto) Eos % (Auto) Baso % (Auto) Neut # (Auto) Lymph # (Auto) Louisa # (Auto) Eos # (Auto) Baso # (Auto) WBC Differential Seg Neuts % (Manual) Band Neuts % (Manual) Lymphocytes % (Manual) Monocytes % (Manual) Eosinophils % (Manual) Metamyelocytes % (Man) Myelocytes % (Man) Abs Neuts (Manual) Differential Comment Toxic Granulation Dohle Bodies Platelet Estimate Platelet Morphology Sodium 152 H Potassium 3.4 L 3.4 L Chloride 112 H Carbon Dioxide 31.5 Anion Gap 9 BUN 105 H Creatinine 3.16 H Estimated GFR 19 L Random Glucose 158 H Calcium 8.0 L Phosphorus 2.7 Magnesium 2.7 H Ammonia Vitamin B12 1380 H TSH 6.060 H Thyroxine (T4) 5.0 Cortisol 01/22/18 02:46 WBC 12.4 H RBC 4.64 Hgb 13.6 Hct 39.8 MCV 85.7 MCH 29.2 MCHC 34.1 RDW 15.3 Plt Count 188 MPV 10.1 Prelim Diff (Auto) Slide review pending Neut % (Auto) 72.4 H Lymph % (Auto) 10.8 Louisa % (Auto) 15.2 H Eos % (Auto) 1.4 Baso % (Auto) 0.2 Neut # (Auto) 9.0 H Lymph # (Auto) 1.3 Louisa # (Auto) 1.9 H Eos # (Auto) 0.2 Baso # (Auto) 0.0 WBC Differential Manual diff final Seg Neuts % (Manual) 71 H Band Neuts % (Manual) 3 Lymphocytes % (Manual) 12 Monocytes % (Manual) 12 H Eosinophils % (Manual) Metamyelocytes % (Man) Myelocytes % (Man) 2 H Abs Neuts (Manual) 9.4 H Differential Comment . Toxic Granulation 1+ H Dohle Bodies Present H Platelet Estimate Normal Platelet Morphology Normal Sodium Potassium Chloride Carbon Dioxide Anion Gap BUN Creatinine Estimated GFR Random Glucose Calcium Phosphorus Magnesium Ammonia Vitamin B12 TSH Thyroxine (T4) Cortisol Microbiology 01/20/18 05:51 Aerobic Blood Culture - Preliminary Blood - Peripheral No growth in 1 day Anaerobic Blood Culture - Preliminary No growth in 1 day 01/20/18 06:01 Aerobic Blood Culture - Preliminary Blood - Peripheral No growth in 1 day Anaerobic Blood Culture - Preliminary No growth in 1 day 01/16/18 08:20 Aerobic Blood Culture - Final Blood - Peripheral Pseudomonas aeruginosa Anaerobic Blood Culture - Final No growth in 5 days Review/Management - Review/Management Plan: imp labs ok looks better fu echo and ct pacemaker 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
[2018-01-22] MEDS: Senna/Docusate Sodium 8.6/50 MG Tablet PO SCH ×2 (08:46→21:37)
[2018-01-22] MEDS: Famotidine PF Inj 20 MG/2 ML Vial IV.PUSH SCH ×2 (08:46→21:36)
[2018-01-22] MEDS: Chlorhexidine 0.12% Oral Kit 15 ML UDC OROPHARYNG SCH ×2 (08:46→21:36)
[2018-01-22] MEDS: dilTIAZem 30 MG Tablet PO SCH ×4 (08:46→22:00)
--- NOTE | 2018-01-22 10:04 | CT ---
EXAM DATE: 01/22/2018 9:49 AM EST AGE/SEX: 82 years / Male INDICATIONS: Altered mental status. CLINICAL DATA: This is the patient's initial encounter. Patient reports that signs and symptoms have been present for 1 day and indicates a pain score of Nonresponsive. MEDICAL/SURGICAL HISTORY: Non-responsive. Non-responsive. RADIATION DOSE: 45.03 CTDI (mGy) COMPARISON: [facility] [place]/O [place]AST, 01/21/2018. . TECHNIQUE: CT of the head without contrast. Using automated exposure control and adjustment of the mA and/or kV according to patient size, radiation dose was kept as low as reasonably achievable to ob tain optimal diagnostic quality images. DICOM format image data is available electronically for revi ew and comparison. FINDINGS: Examination again demonstrates a large 6.1 x 3.9 cm region of decreased density with central isodensi ty in the left occipital lobe convexities. There is some associated mass effect although not as promi nent given the size of the abnormality. Although cortex does appear spared along the medial cephalad aspect of the abnormality, there is cortical involvement in the medial and caudal aspect. Examination is otherwise stable. There is mild diffuse cerebral atrophy with mild periventricular white matter hypodensities. Ventricl es are stable and midline. Basilar cisterns are intact. Brainstem and cerebellum are intact. CONCLUSION: 1. No significant interval change. 2. Stable large 6.1 x 3.9 cm left occipital abnormality, as above. Differential considerations inclu de mass versus evolving hemorrhagic infarct. Consider contrast enhanced MRI examination for further c haracterization. . Electronically signed by: Nii Amaya MD 01/22/2018 10:03 AM EST
--- NOTE | 2018-01-22 12:47 | P.PNPAL ---
Reason for Visit Reason for visit: a. To assist with evaluation and management of symptoms including: Encephalopathy, pain, dyspnea b. To assist medical decision maker(s) with: better understanding of current medical conditions; weighing benefits/burdens of medical treatment options; making medical treatment decisions. Subjective Subjective/Interval History: Pt seen today to follow up on comfort,goals. S/p CT brain yesterday. CT = Abnormal left parietal occipital region. Neurology consulted-- likely CVA, however unable to obtain MRI 2/2 pacer. + some hemorrhagic component (vs abcess less likley). heparin d/c. Neurologic status overall improved in the past day patient becoming more responsive. Slight improvement in renal function BUN still up 105, creatinine downtrending 3.16. GFR 19. Adequate urine output. Low-grade fever 100.3 T-max. Blood culture 01/20 no growth x 2 days. WBC 12.4. Tolerating TF via OGT Pt seen in room, sons, granddaughter, at bedside. They report they were able to speak with veterinary pharmacologist earlier today about CVA, as well as accounting/finance tutor earlier who indicated there continued to be improvement in renal function. Review with them CT findings, monitoring for continued hemorrhagic evolution, review with them benefits/risks of heparin and anticoagulation for atrial fibrillation. Review with them ongoing treatments for infectious process. Review with them continued neurologic assessments, as well as potential sequelae and complications of CVA including dysphasia, cognitive deficits, hemiparesis etc. explore that these complications could lead to prolonged intubation and mechanical ventilation, prolonged hospitalization and potentially prolonged rehabilitation course and that level of recovery is still not known at this early in his clinical course. All questions answered to the best of my ability. They verbalized understanding that patient condition still guarded that he could make some improvements however also high risk for complications and setbacks. For now they wish to continue aggressive treatments available to help the patient recover. Patient more responsive to exam today. Slight eye opening to verbal and touch stimuli. Facial grimace with pain stimuli right upper extremity however does not withdrawal. No grimace or withdrawal to pain stimuli left upper extremity. Very slight withdrawal to pain stimuli bilateral feet. He does not follow any commands.+ Gag with ETT stimuli. Today right foot is nearly the same temperature is left foot not cool as it has been during prior evaluations. d/w primary nurse, critical care attending Objective Vital Signs: Vital Signs 01/21/18 13:00 01/21/18 13:01 01/21/18 13:30 Temperature Pulse Rate 87 88 Respiratory Rate 24 23 Blood Pressure 158/69 H Pulse Oximetry 99 99 100 01/21/18 14:00 01/21/18 15:00 01/21/18 15:02 Temperature Pulse Rate 89 84 88 Respiratory Rate 36 H 19 19 Blood Pressure 162/77 H Pulse Oximetry 99 99 99 01/21/18 15:23 01/21/18 15:24 01/21/18 16:00 Temperature Pulse Rate 91 H 91 H Respiratory Rate 17 18 17 Blood Pressure Pulse Oximetry 99 100 01/21/18 16:09 01/21/18 16:10 01/21/18 17:00 Temperature Pulse Rate 89 94 H 94 H Respiratory Rate 19 17 17 Blood Pressure 190/79 H 164/70 H 177/107 H Pulse Oximetry 100 99 99 01/21/18 17:55 01/21/18 18:00 01/21/18 19:00 Temperature Pulse Rate 97 H 93 H 90 Respiratory Rate 19 18 20 Blood Pressure 169/80 H 157/93 H 169/81 H Pulse Oximetry 100 100 100 01/21/18 19:38 01/21/18 20:00 01/21/18 22:00 Temperature 100.0 F H Pulse Rate 90 90 89 Respiratory Rate 21 26 H Blood Pressure 172/75 H Pulse Oximetry 100 99 01/22/18 00:00 01/22/18 02:00 01/22/18 03:20 Temperature 100.3 F H Pulse Rate 93 H 98 H 86 Respiratory Rate 22 22 Blood Pressure 170/79 H Pulse Oximetry 98 01/22/18 03:22 01/22/18 04:00 01/22/18 06:00 Temperature 99.8 F H Pulse Rate 100 H 99 H Respiratory Rate 22 21 Blood Pressure 148/63 H Pulse Oximetry 98 98 01/22/18 07:45 01/22/18 07:50 01/22/18 08:00 Temperature 99.9 F H Pulse Rate 105 H 88 Respiratory Rate 22 20 Blood Pressure 154/68 H Pulse Oximetry 97 98 01/22/18 09:44 01/22/18 10:00 01/22/18 11:49 Temperature Pulse Rate 100 H Respiratory Rate 20 Blood Pressure Pulse Oximetry 100 99 Intake & Output 01/21/18 01/22/18 01/22/18 18:59 06:59 18:59 Intake Total 1170 / 1170 914 / 914 Output Total 2125 / 2125 1100 / 1100 Balance -955 / -955 -186 / -186 Weight 82.8 kg Intake: IV 510 / 510 Heparin/D5W 25,000 U/250 mL 25, 310 / 310 000 unit In 250 ml @ 1,000 UNITS/HR 10 mls/hr IV.CONT TITRATE PRN Rx#:[id number] Maxipime Inj 2,000 MG In NS Inj 100 / 100 100 ML @ 200 mls/hr IV.SIG Q24H BRIANNA Rx#:[id number] KCl 20 mEq Premix Inj 20 meq In 100 / 100 100 ml @ 50 mls/hr IV.SIG ONCE ONE Rx#:[id number] Oral 0 / 0 Tube Feeding 360 / 360 714 / 714 Tube Irrigant 200 / 200 Water Bolus Amount 300 / 300 Output: Urine 1000 / 1000 Urine Amount (Catheter) 1125 / 1125 1100 / 1100 Indwelling Urethral Catheter 1125 / 1125 1100 / 1100 Other: Date of Last Bowel Movement 01/21/18 01/21/18 01/21/18 # Bowel Movements 1 # Incontinent Bowel Movements 2 1 Physical Exam: CONSTITUTIONAL/GENERAL: This is an adequately nourished patient, tall. In no apparent distress,minimally responsive on mechanical vent. TUBES/LINES/DRAINS: Peripheral IV upper extremity, central line to IJ, Prince catheter, ET tube, OG tube, soft restraints bilaterally SKIN: No jaundice, rashes, or lesions. No wounds seen anteriorly. Skin warm and dry EYES: Pupils 2 mm questionable reaction to light. No scleral icterus. No injection or drainage. Fundi not examined. CARDIOVASCULAR: Irregular heart rate. A. fib viewed on bedside monitor. No murmur. No JVD. pedal pulses are faint. bilateral feet warm RESPIRATORY/CHEST: Symmetric, unlabored respirations via ET tube mechanical vent. + on CPAP. Clear to auscultation. Breath sounds equal bilaterally. GASTROINTESTINAL: Abdomen soft, nondistended. No hepato-splenomegaly, or palpable masses. Bowel sounds present. OG tube present, clamped. GENITOURINARY: Without palpable bladder distension. Prince catheter in place. Clear yellow urine MUSCULOSKELETAL: Extremities without clubbing, cyanosis, or edema. No joint effusion noted. No mottling or clubbing. NEUROLOGICAL: Slight brief eye opening to touch and verbal stimuli. Does not keep eyes open. Does not follow any commands. Grimaces to pain stimuli right upper extremity though does not withdrawal. No response to pain stimuli left upper extremity. Slight withdrawal bilateral feet to pain stimuli. PSYCHIATRIC: no obvious anxiety Diagnostic Tests Laboratory: Laboratory Results - last 72 hr 01/17/18 01/20/18 01/20/18 14:30 05:05 05:05 WBC 12.5 H RBC 4.34 L Hgb 12.8 L Hct 37.5 L MCV 86.5 MCH 29.4 MCHC 34.0 RDW 15.1 Plt Count 142 L MPV 9.7 Prelim Diff (Auto) Slide review pending Neut % (Auto) 76.9 H Lymph % (Auto) 9.3 [place] % (Auto) 13.5 H Eos % (Auto) 0.2 Baso % (Auto) 0.1 Neut # (Auto) 9.6 H Lymph # (Auto) 1.2 [place] # (Auto) 1.7 H Eos # (Auto) 0.0 Baso # (Auto) 0.0 WBC Differential Manual diff final Seg Neuts % (Manual) 60 Band Neuts % (Manual) 13 H Lymphocytes % (Manual) 14 Monocytes % (Manual) 12 H Eosinophils % (Manual) Metamyelocytes % (Man) Myelocytes % (Man) 1 H Abs Neuts (Manual) 9.3 H Differential Comment . Toxic Granulation Dohle Bodies Platelet Estimate Low L Platelet Morphology Enlarged H APTT Puncture Site Patient Temperature O2 Saturation ABG pH ABG pCO2 ABG pO2 ABG HCO3 ABG O2 Content ABG Base Excess ABG Methemoglobin Hemoglobin Carboxyhemoglobin O2 Delivery Device Vent Setting Inspired O2 Critical Value Sodium 149 H Potassium 3.2 L Chloride 110 H Carbon Dioxide 27.6 Anion Gap 11 BUN 89 H Creatinine 4.19 H Estimated GFR 14 L Random Glucose 159 H Calcium 8.5 Phosphorus 3.6 Magnesium 2.2 Ammonia Vitamin B12 TSH Thyroxine (T4) Cortisol Ur Random Urea 632 U Random Urea/Creat 9.58 Urine Creatinine 66 01/20/18 01/20/18 01/21/18 05:05 14:18 05:00 WBC RBC Hgb Hct MCV MCH MCHC RDW Plt Count MPV Prelim Diff (Auto) Neut % (Auto) Lymph % (Auto) [place] % (Auto) Eos % (Auto) Baso % (Auto) Neut # (Auto) Lymph # (Auto) [place] # (Auto) Eos # (Auto) Baso # (Auto) WBC Differential Seg Neuts % (Manual) Band Neuts % (Manual) Lymphocytes % (Manual) Monocytes % (Manual) Eosinophils % (Manual) Metamyelocytes % (Man) Myelocytes % (Man) Abs Neuts (Manual) Differential Comment Toxic Granulation Dohle Bodies Platelet Estimate Platelet Morphology APTT 49.7 H 44.4 H Puncture Site Art line Patient Temperature 98.6 O2 Saturation 97 ABG pH 7.50 H ABG pCO2 34 L ABG pO2 167 H ABG HCO3 26 ABG O2 Content 18.3 ABG Base Excess 3.2 H ABG Methemoglobin 1.5 Hemoglobin 13.2 Carboxyhemoglobin 0.7 O2 Delivery Device Ventilator Vent Setting Prvc/ac 550/18 Inspired O2 40 Critical Value No Sodium Potassium Chloride Carbon Dioxide Anion Gap BUN Creatinine Estimated GFR Random Glucose Calcium Phosphorus Magnesium Ammonia Vitamin B12 TSH Thyroxine (T4) Cortisol Ur Random Urea U Random Urea/Creat Urine Creatinine 01/21/18 01/21/18 01/21/18 05:00 05:00 05:00 WBC 9.9 RBC 4.44 L Hgb 13.1 Hct 39.0 MCV 87.9 MCH 29.5 MCHC 33.6 RDW 16.0 Plt Count 159 MPV 9.4 Prelim Diff (Auto) Slide review pending Neut % (Auto) 67.9 Lymph % (Auto) 13.3 [place] % (Auto) 17.6 H Eos % (Auto) 0.8 Baso % (Auto) 0.4 Neut # (Auto) 6.7 Lymph # (Auto) 1.3 [place] # (Auto) 1.7 H Eos # (Auto) 0.1 Baso # (Auto) 0.0 WBC Differential Manual diff final Seg Neuts % (Manual) 65 Band Neuts % (Manual) 3 Lymphocytes % (Manual) 14 Monocytes % (Manual) 15 H Eosinophils % (Manual) 1 Metamyelocytes % (Man) 1 Myelocytes % (Man) 1 H Abs Neuts (Manual) 6.9 Differential Comment . Toxic Granulation Dohle Bodies Platelet Estimate Normal Platelet Morphology Normal APTT Puncture Site Patient Temperature O2 Saturation ABG pH ABG pCO2 ABG pO2 ABG HCO3 ABG O2 Content ABG Base Excess ABG Methemoglobin Hemoglobin Carboxyhemoglobin O2 Delivery Device Vent Setting Inspired O2 Critical Value Sodium 147 H Potassium 2.9 L* Chloride 107 Carbon Dioxide 28.7 Anion Gap 11 BUN 101 H Creatinine 3.84 H Estimated GFR 15 L Random Glucose 156 H Calcium 8.1 L Phosphorus 3.4 Magnesium 2.5 Ammonia 18 Vitamin B12 TSH Thyroxine (T4) Cortisol Ur Random Urea U Random Urea/Creat Urine Creatinine 01/21/18 01/21/18 01/21/18 16:25 16:25 16:25 WBC RBC Hgb Hct MCV MCH MCHC RDW Plt Count MPV Prelim Diff (Auto) Neut % (Auto) Lymph % (Auto) [place] % (Auto) Eos % (Auto) Baso % (Auto) Neut # (Auto) Lymph # (Auto) [place] # (Auto) Eos # (Auto) Baso # (Auto) WBC Differential Seg Neuts % (Manual) Band Neuts % (Manual) Lymphocytes % (Manual) Monocytes % (Manual) Eosinophils % (Manual) Metamyelocytes % (Man) Myelocytes % (Man) Abs Neuts (Manual) Differential Comment Toxic Granulation Dohle Bodies Platelet Estimate Platelet Morphology APTT Puncture Site Patient Temperature O2 Saturation ABG pH ABG pCO2 ABG pO2 ABG HCO3 ABG O2 Content ABG Base Excess ABG Methemoglobin Hemoglobin Carboxyhemoglobin O2 Delivery Device Vent Setting Inspired O2 Critical Value Sodium Potassium Chloride Carbon Dioxide Anion Gap BUN Creatinine Estimated GFR Random Glucose Calcium Phosphorus Magnesium Ammonia 19 Vitamin B12 1380 H TSH 6.060 H Thyroxine (T4) 5.0 Cortisol 45.9 Ur Random Urea U Random Urea/Creat Urine Creatinine 01/21/18 01/22/18 01/22/18 16:25 02:46 02:46 WBC 12.4 H RBC 4.64 Hgb 13.6 Hct 39.8 MCV 85.7 MCH 29.2 MCHC 34.1 RDW 15.3 Plt Count 188 MPV 10.1 Prelim Diff (Auto) Slide review pending Neut % (Auto) 72.4 H Lymph % (Auto) 10.8 [place] % (Auto) 15.2 H Eos % (Auto) 1.4 Baso % (Auto) 0.2 Neut # (Auto) 9.0 H Lymph # (Auto) 1.3 [place] # (Auto) 1.9 H Eos # (Auto) 0.2 Baso # (Auto) 0.0 WBC Differential Manual diff final Seg Neuts % (Manual) 71 H Band Neuts % (Manual) 3 Lymphocytes % (Manual) 12 Monocytes % (Manual) 12 H Eosinophils % (Manual) Metamyelocytes % (Man) Myelocytes % (Man) 2 H Abs Neuts (Manual) 9.4 H Differential Comment . Toxic Granulation 1+ H Dohle Bodies Present H Platelet Estimate Normal Platelet Morphology Normal APTT Puncture Site Patient Temperature O2 Saturation ABG pH ABG pCO2 ABG pO2 ABG HCO3 ABG O2 Content ABG Base Excess ABG Methemoglobin Hemoglobin Carboxyhemoglobin O2 Delivery Device Vent Setting Inspired O2 Critical Value Sodium 152 H Potassium 3.4 L 3.4 L Chloride 112 H Carbon Dioxide 31.5 Anion Gap 9 BUN 105 H Creatinine 3.16 H Estimated GFR 19 L Random Glucose 158 H Calcium 8.0 L Phosphorus 2.7 Magnesium 2.7 H Ammonia Vitamin B12 TSH Thyroxine (T4) Cortisol Ur Random Urea U Random Urea/Creat Urine Creatinine Result Diagrams: 01/22/18 02:46 01/22/18 02:46 Microbiology: Microbiology 01/20/18 05:51 Aerobic Blood Culture - Preliminary Blood - Peripheral No growth in 2 days Anaerobic Blood Culture - Preliminary No growth in 2 days 01/20/18 06:01 Aerobic Blood Culture - Preliminary Blood - Peripheral No growth in 2 days Anaerobic Blood Culture - Preliminary No growth in 2 days 01/16/18 08:20 Aerobic Blood Culture - Final Blood - Peripheral Pseudomonas aeruginosa Anaerobic Blood Culture - Final No growth in 5 days 01/16/18 08:05 Aerobic Blood Culture - Final Blood - Peripheral Pseudomonas aeruginosa Anaerobic Blood Culture - Final Pseudomonas aeruginosa 01/16/18 06:28 Urine Culture - Final Catheterized Urine Pseudomonas aeruginosa Imaging: Impressions Head CT 01/21/18 12:18 CONCLUSION: 1. Abnormal left parietal occipital region. MRI suggested. Head CT 01/22/18 05:00 CONCLUSION: 1. No significant interval change. 2. Stable large 6.1 x 3.9 cm left occipital abnormality, as above. Differential considerations include mass versus evolving hemorrhagic infarct. Consider contrast enhanced MRI examination for further characterization. . Procedures: 01/16 central line right IJ 01/16 intubated Assessment and Plan - Disease Oriented Problem List (1) Bladder tumor (2) Meatal stenosis (3) History of bladder cancer (4) Acute UTI (5) Acute kidney injury (6) Sepsis (7) Respiratory failure - Symptom Scale (1) Dyspnea 0-10 Scale: Unable to quantify (2) Encephalopathy 0-10 Scale: Unable to quantify (3) Pain 0-10 Scale: Unable to quantify Pertinent Non-Medical Issues: Psychosocial: Born and raised in [place]. 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 Supported by , children, grandchildren as well as close friends. 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 Not clear if or when he will regain ability. Per [place] statutes his would be appropriate legal proxy. Ethical issues impacting care: No ethical issues identified. Important Contacts: Lanie Cheung [phone], isabel [phone] Prognosis: This patient was initially admitted with generalized symptoms of nausea, weakness but overall not feeling well. During hospital course has had worsening sepsis, multiorgan failure. He has recent diagnoses of bladder cancer. Given advanced age, Multiorgan issues, high risk for ongoing complications and setbacks. Code Status: Full Code Plan: Legal decision maker:Pt critically ill on mech vent, unable to participate in decision-making. Not clear if or when he will regain ability. Per [place] statutes his would be appropriate legal proxy. Goals: Reviewed with family at length patient conditions, possible trajectories and prognosis. Reviewed potential complications and potential for prolonged hospitalization. Treatment options. Upon review of CODE STATUS they endorse that he should remain full code at this time. The endorse that he was generally healthy, active, and well prior to this hospitalization and they are hopeful that he could recover from this, cont aggressive tx at this time. They are open to ongoing conversations as clinical course evolves. CODE STATUS:full code SYMPTOMS: --Dyspneaintubated, currently breathing comfortably on mechanical vent. tolerating CPAP today. Encephalopathy may limit weaning, may affect airway maintenance upon medical extubation if able to medically extubate. History of COPD requiring CPAP of though had not used recently due to ill fitting. -- dysphagia- potential r/t CVA --Encephalopathy-multifactorial, metabolic. Multiorgan failure. Has not been on sedation for 4 days. Not arousing, not following commands-- today some improvement in mentation. s/p brain + CVA, addit diagnostics pending. High risk for future CVA. --Pain-currently with no signs or symptoms of pain, potential sources would include bedbound status, recent invasive procedures, including cystoscopy. No indications for pain medication at this time. We will continue to evaluate. Palliative care will continue to follow during hospital course as condition evolves, to assist patient/decision-maker with understanding of medical conditions, weighing benefits/burdens of treatment options, for clarification of goals of treatment. Additionally will assist with any symptoms of palliative concern Attestation Attestation: To help prompt me to consider important information that might be impacting today's encounter and assessment, information from prior notes written by myself or my colleagues may have been "brought forward" into today's note. My signature on this note, however, is an attestation that I personally performed the exam, history, and/or decision-making noted today, and, unless otherwise indicated, the interactions with patient, family, and staff as well as the review of records all occurred today. I also attest that the listed assessment and stated plan reflect my best clinical judgment today based on the combination of historical information, prior notes, and today's exam/ interactions. When time spent is documented, it refers only to time spent today by the signer, or if indicated, combined time spent today by collaborating physician/nurse practitioner.
[2018-01-22] MEDS ORDERED: Labetalol HCl Inj 100 MG/20 ML Vial ONE (13:17)
--- NOTE | 2018-01-22 13:58 | P.PNCC ---
Subjective Subjective Remarks/Hospital Course: Mr. Cheung is a 82-year-old male with bladder cancer, thoracic and abdominal aortic aneurysm, Bronchiectasis, Restrictive lung disease, COPD, on 2L of supplemental O2, history of congestive heart failure, Hyperlipidemia, HTN who recently underwent recent cystoscopy with meatal dilation about 4 days ago. According to Dr. 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 He underwent laser ablation of the tumor masses with biopsy along with laser lithotripsy and extraction of the right ureteral calculus. Bilateral stents were placed. Patient came to the ER today with symptoms of UTI and sepsis, altered mental status. UA showed evidence of UTI. Patient was started on Rocephin and admitted to hospitalist service. Over the course of the day patient clinically started deteriorating hypotensive with worsening encephalopathy hardly responsive. Patient was transferred to the ICU and critical care medicine was consulted. I evaluated the patient in the ICU he is very lethargic encephalopathy. Currently received 2 L normal saline bolus and had been started on Levophed currently at 12 mcg/min. Despite this patient is hypotensive. Initial ABG showed a pH of 7.25 PCO2 50 base excess -5 now slightly worse with pH of 7.23 PCO2 52. Due to severe sepsis and metabolic acidosis patient is not a candidate for BiPAP. WBC count of on admission was 14 with left shift now has worsened to 20.4. Initial lactic acid was 2,2 repeat lactic acid is pending at this time. Patient previously was sent home with indwelling Prince by Dr. Cabrera , he removed the Prince today. Patient has been oliguric and in renal failure. Will replace the Prince for strict hourly intake output SUBJ 01/17: Remains critical intubated sedated. Blood cultures all bottles growing gram-negative rods. Currently on Zosyn. Creatinine has worsened to 3, potassium is 6.2. Urine output has been marginal 10-15 mL/h. CVP is only 9. Fluid challenge with 1 L normal saline bolus and maintenance fluid 100 mL/h. Nephrology consulted, CMP at noon. Treatment for hyperkalemia ordered with IV insulin followed by dextrose, calcium, bicarb, Kayexalate and breathing treatments. 01/18: Remains critical, remains in multiorgan failure. Started on Lasix by nephrology yesterday urine output approximately 1 L, worsening BUN/creatinine 66 /3.74. Will discuss with nephrology regarding dialysis though there is no acute indication. WBC count slightly improved to 15.2. Patient developed A. fib with RVR yesterday, started on Cardizem infusion after bolus. Will DC Lovenox for DVT prophylaxis and start on IV heparin for persistent A. fib. 01/19: Patient continues on heparin and Cardizem infusion. WBC count slightly improved. Urine output increased 2 L in 12 hours last evening. Patient continues in A. fib but rate controlled will transition to p.o.. 01/20: T-max 101.0 Cardizem has been transition to p.o. 30 mg 4 times daily. The patient continues to fail CPAP trials. Urine output continues to increase. Continue continued improvement in WBC count. No change in neurological status , despite being off sedation greater than 48 hours continue to monitor. 01/21: Late entry note patient seen approximately at 11 AM .afebrile. Patient remains uncertain responsive despite> than 48 hours of discontinuation of Versed however patient noted to have an elevated creatinine so significantly less clearance of the prolonged Versed infusion stat labs being obtained ammonia level cortisol level. Neurology also has been consulted. Stat CT of the head obtained revealed abnormality in the left parietal occipital region, heparin placed on hold. Stat MRI is pending. Patient tolerating CPAP trials today greater than 2-1/2 hours thus far. 01/22: Neuro assessment performed earlier this a.m. patient has spontaneous eye opening moving head responding to pain , noted visual tracking. Repeat CT head obtained this a.m. per neurology recommendations, noted unchanged. Inability to obtain MRI secondary to pacemaker. EEG results are pending .maintain systolic blood pressure less than 140 PRN antihypertensives initiated. Carvedilol resumed. Echo pending. Extensive discussion with family at bedside patient's and children medical status update given all questions answered. Objective Vital Signs / I&O: Vital Signs 01/21/18 14:00 01/21/18 15:00 01/21/18 15:02 Temperature Pulse Rate 89 84 88 Respiratory Rate 36 H 19 19 Blood Pressure 162/77 H Pulse Oximetry 99 99 99 01/21/18 15:23 01/21/18 15:24 01/21/18 16:00 Temperature Pulse Rate 91 H 91 H Respiratory Rate 17 18 17 Blood Pressure Pulse Oximetry 99 100 01/21/18 16:09 01/21/18 16:10 01/21/18 17:00 Temperature Pulse Rate 89 94 H 94 H Respiratory Rate 19 17 17 Blood Pressure 190/79 H 164/70 H 177/107 H Pulse Oximetry 100 99 99 01/21/18 17:55 01/21/18 18:00 01/21/18 19:00 Temperature Pulse Rate 97 H 93 H 90 Respiratory Rate 19 18 20 Blood Pressure 169/80 H 157/93 H 169/81 H Pulse Oximetry 100 100 100 01/21/18 19:38 01/21/18 20:00 01/21/18 22:00 Temperature 100.0 F H Pulse Rate 90 90 89 Respiratory Rate 21 26 H Blood Pressure 172/75 H Pulse Oximetry 100 99 01/22/18 00:00 01/22/18 02:00 01/22/18 03:20 Temperature 100.3 F H Pulse Rate 93 H 98 H 86 Respiratory Rate 22 22 Blood Pressure 170/79 H Pulse Oximetry 98 01/22/18 03:22 01/22/18 04:00 01/22/18 06:00 Temperature 99.8 F H Pulse Rate 100 H 99 H Respiratory Rate 22 21 Blood Pressure 148/63 H Pulse Oximetry 98 98 01/22/18 07:45 01/22/18 07:50 01/22/18 08:00 Temperature 99.9 F H Pulse Rate 105 H 88 Respiratory Rate 22 20 Blood Pressure 154/68 H Pulse Oximetry 97 98 01/22/18 09:44 01/22/18 10:00 01/22/18 11:49 Temperature Pulse Rate 100 H Respiratory Rate 20 Blood Pressure Pulse Oximetry 100 99 Intake & Output 01/21/18 01/22/18 01/22/18 18:59 06:59 18:59 Intake Total 1170 / 1170 914 / 914 Output Total 2125 / 2125 1100 / 1100 Balance -955 / -955 -186 / -186 Weight 82.8 kg Intake: IV 510 / 510 Heparin/D5W 25,000 U/250 mL 25, 310 / 310 000 unit In 250 ml @ 1,000 UNITS/HR 10 mls/hr IV.CONT TITRATE PRN Rx#:[id number] Maxipime Inj 2,000 MG In NS Inj 100 / 100 100 ML @ 200 mls/hr IV.SIG Q24H [facility] Rx#:[id number] KCl 20 mEq Premix Inj 20 meq In 100 / 100 100 ml @ 50 mls/hr IV.SIG ONCE ONE Rx#:[id number] Oral 0 / 0 Tube Feeding 360 / 360 714 / 714 Tube Irrigant 200 / 200 Water Bolus Amount 300 / 300 Output: Urine 1000 / 1000 Urine Amount (Catheter) 1125 / 1125 1100 / 1100 Indwelling Urethral Catheter 1125 / 1125 1100 / 1100 Other: Date of Last Bowel Movement 01/21/18 01/21/18 01/21/18 # Bowel Movements 1 # Incontinent Bowel Movements 2 1 Result Diagrams: 01/23/18 03:21 01/23/18 03:21 Imaging: Laboratory Results WBC 12.4 th/mm3 (4.0-11.0) H 01/22/18 02:46 RBC 4.64 mil/mm3 (4.50-5.90) 01/22/18 02:46 Hgb 13.6 gm/dL (13.0-17.0) 01/22/18 02:46 Hct 39.8 % (39.0-51.0) 01/22/18 02:46 MCV 85.7 fL (80.0-100.0) 01/22/18 02:46 MCH 29.2 pg (27.0-34.0) 01/22/18 02:46 MCHC 34.1 % (32.0-36.0) 01/22/18 02:46 RDW 15.3 % (11.6-17.2) 01/22/18 02:46 Plt Count 188 th/mm3 (150-450) 01/22/18 02:46 MPV 10.1 fL (7.0-11.0) 01/22/18 02:46 Prelim Diff (Auto) Slide review pending 01/22/18 02:46 Neut % (Auto) 72.4 % (16.0-70.0) H 01/22/18 02:46 Lymph % (Auto) 10.8 % (9.0-44.0) 01/22/18 02:46 [place] % (Auto) 15.2 % (0.0-8.0) H 01/22/18 02:46 Eos % (Auto) 1.4 % (0.0-4.0) 01/22/18 02:46 Baso % (Auto) 0.2 % (0.0-2.0) 01/22/18 02:46 Neut # (Auto) 9.0 th/mm3 (1.8-7.7) H 01/22/18 02:46 Lymph # (Auto) 1.3 th/mm3 (1.0-4.8) 01/22/18 02:46 [place] # (Auto) 1.9 th/mm3 (0.0-0.9) H 01/22/18 02:46 Eos # (Auto) 0.2 th/mm3 (0.0-0.4) 01/22/18 02:46 Baso # (Auto) 0.0 th/mm3 (0.0-0.2) 01/22/18 02:46 WBC Differential Manual diff final 01/22/18 02:46 Seg Neuts % (Manual) 71 % (16-70) H 01/22/18 02:46 Band Neuts % (Manual) 3 % (0-6) 01/22/18 02:46 Lymphocytes % (Manual) 12 % (9-44) 01/22/18 02:46 Monocytes % (Manual) 12 % (0-8) H 01/22/18 02:46 Eosinophils % (Manual) 1 % (0-4) 01/21/18 05:00 Metamyelocytes % (Man) 1 % (0-1) 01/21/18 05:00 Myelocytes % (Man) 2 % (0-0) H 01/22/18 02:46 Abs Neuts (Manual) 9.4 th/mm3 (1.8-7.7) H 01/22/18 02:46 Differential Comment . 01/22/18 02:46 Toxic Granulation 1+ (None) H 01/22/18 02:46 Toxic Vacuolation Present (None) H 01/16/18 15:50 Dohle Bodies Present (None) H 01/22/18 02:46 Platelet Estimate Normal (Normal) 01/22/18 02:46 Platelet Morphology Normal (Normal) 01/22/18 02:46 RBC Morphology Normal (Normal) 01/16/18 15:50 PT 11.9 sec (9.8-11.6) H 01/18/18 07:50 INR 1.2 Ratio 01/18/18 07:50 APTT 44.4 sec (23.4-31.7) H 01/21/18 05:00 Puncture Site Art line 01/20/18 14:18 Patient Temperature 98.6 01/20/18 14:18 O2 Saturation 97 % (90-100) 01/20/18 14:18 ABG pH 7.50 (7.380-7.420) H 01/20/18 14:18 ABG pCO2 34 mmHg (38-42) L 01/20/18 14:18 ABG pO2 167 mmHG (61-120) H 01/20/18 14:18 ABG HCO3 26 mmol/L (22-26) 01/20/18 14:18 ABG O2 Content 18.3 Vol % (12.0-20.0) 01/20/18 14:18 ABG Base Excess 3.2 mmol/L (-2-2) H 01/20/18 14:18 ABG Methemoglobin 1.5 % (0-2) 01/20/18 14:18 Mg Test Present 01/16/18 16:20 Hemoglobin 13.2 G/DL (12.0-16.0) 01/20/18 14:18 Carboxyhemoglobin 0.7 % (0-4) 01/20/18 14:18 O2 Delivery Device Ventilator 01/20/18 14:18 Liter Flow 15.00 L/M 01/16/18 16:20 Vent Setting Prvc/ac 550/18 01/20/18 14:18 Inspired O2 40 % 01/20/18 14:18 Critical Value No 01/20/18 14:18 Sodium 152 meq/L (136-145) H 01/22/18 02:46 Potassium 3.4 meq/L (3.5-5.1) L 01/22/18 02:46 Chloride 112 meq/L (98-107) H 01/22/18 02:46 Carbon Dioxide 31.5 meq/L (21.0-32.0) 01/22/18 02:46 Anion Gap 9 meq/L (5-15) 01/22/18 02:46 BUN 105 mg/dL (7-18) H 01/22/18 02:46 Creatinine 3.16 mg/dL (0.60-1.30) H 01/22/18 02:46 Estimated GFR 19 mL/min (>89) L 01/22/18 02:46 POC Glucose 125 mg/dl (68-110) H 01/16/18 16:00 Random Glucose 158 mg/dL (74-106) H 01/22/18 02:46 Lactic Acid 2.3 mmol/L (0.4-2.0) H 01/16/18 18:26 Calcium 8.0 mg/dL (8.5-10.1) L 01/22/18 02:46 Calcium Adj for Albumin 7.9 mg/dL (8.5-10.1) L 01/18/18 03:00 Phosphorus 2.7 mg/dL (2.5-4.9) 01/22/18 02:46 Magnesium 2.7 mg/dL (1.5-2.5) H 01/22/18 02:46 Total Bilirubin 0.8 mg/dL (0.2-1.0) 01/19/18 05:00 AST 72 U/L (15-37) H 01/19/18 05:00 ALT 85 U/L (12-78) H 01/19/18 05:00 Alkaline Phosphatase 197 U/L (45-117) H 01/19/18 05:00 Ammonia 19 mcmol/L (11-32) 01/21/18 16:25 Total Creatine Kinase 71 U/L (39-308) 01/17/18 03:30 Troponin I 0.24 ng/mL (0.02-0.05) H 01/17/18 03:30 Total Protein 6.7 g/dL (6.4-8.2) D 01/19/18 05:00 Albumin 1.8 g/dL (3.4-5.0) L 01/19/18 05:00 Lipase 56 U/L (73-393) L 01/16/18 04:29 Vitamin B12 1380 pg/mL (193-986) H 01/21/18 16:25 TSH 6.060 uIU/mL (0.358-3.740) H 01/21/18 16:25 Thyroxine (T4) 5.0 mcg/dL (4.5-12.1) 01/21/18 16:25 Cortisol 45.9 mcg/dL 01/21/18 16:25 Urine Color [place] (Yellw/Straw) 01/16/18 06:28 Urine Clarity Cloudy (Clear) H 01/16/18 06:28 Urine pH 5.0 (5.0-8.5) 01/16/18 06:28 Ur Specific [place] 1.021 (1.002-1.035) 01/16/18 06:28 Urine Protein 100 mg/dL (Neg-Trace) H 01/16/18 06:28 Urine Glucose (UA) Negative mg/dL (Negative) 01/16/18 06:28 Urine Ketones Negative mg/dL (Negative) 01/16/18 06:28 Urine Occult Blood Large (Negative) H 01/16/18 06:28 Urine Nitrate Negative (Negative) 01/16/18 06:28 Urine Bilirubin Negative (Negative) 01/16/18 06:28 Urine Urobilinogen 2.0 mg/dL (Less than 2) H 01/16/18 06:28 Ur Leukocyte Esterase Large (Negative) H 01/16/18 06:28 Urine RBC /hpf (0-3) 01/16/18 06:28 Urine WBC /hpf (0-5) 01/16/18 06:28 Amorphous Sediment Rare /hpf (None) H 01/16/18 06:28 Urine Bacteria Many /hpf (None) H 01/16/18 06:28 Hyaline Casts 12 /lpf (0-3) 01/16/18 06:28 Urine Mucus Few /lpf (Occasional) H 01/16/18 06:28 Micro UA Comment Cath-culture ind 01/16/18 06:28 Ur Microscopic Review Not Reportable 01/16/18 06:28 Urine Culture Comments Cath-cult indicated 01/16/18 06:28 Urine Osmolality 356 mosm/kg (300-1300) 01/17/18 14:30 Ur Random Urea 632 mg/dL 01/17/18 14:30 U Random Urea/Creat 9.58 mg/dL 01/17/18 14:30 Urine Creatinine 66 mg/dL 01/17/18 14:30 Impressions Abdomen/Pelvis CT 01/16/18 04:21 CONCLUSION: 1. Bilateral ureteral stents are in place and there is mild distention of the collecting systems bilaterally. Both kidneys enhance heterogeneously. 2. 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 Chest X-Ray 01/20/18 04:00 CONCLUSION: Improvement in the areas of basilar consolidation. Head CT 01/22/18 05:00 CONCLUSION: 1. No significant interval change. 2. Stable large 6.1 x 3.9 cm left occipital abnormality, as above. Differential considerations include mass versus evolving hemorrhagic infarct. Consider contrast enhanced MRI examination for further characterization. . Objective Remarks: GENERAL: Elderly 82-year-old male who is encephalopathic currently intubated SKIN: Poorly perfused. Moderate bruising noted bilateral upper and lower extremities HEENT: Atraumatic. Normocephalic. Pupils equal and round. No scleral icterus. No injection or drainage, edentulous. Intubated NECK: Trachea midline. No JVD. CARDIO: Atrial fibrillation rate controlled. Left upper chest pacemaker in place. RESP: Air entry equal bilaterally with bilateral crackles. No wheezes or rhonchi ABD: +BS, soft, non-tender, nondistended. Bilateral flank tenderness on deep palpation EXT: Extremities without clubbing, cyanosis, or edema. Poorly perfused NEURO: Intubated, Versed discontinued 01/18 @9 AM. Moves extremities weakly. Withdraws extremities x4 with deep stimulation,do not follow commands. Spontaneous eye opening with visual tracking. 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 Status post recent right ureteroscopy with laser lithotripsy of distal ureteral calculus Status post bilateral ureteral stent placement AAA/Thoracic aortic aneurysm Bronchiectasis/Restrictive lung disease/COPD, chronically on 2L of supplemental O2 CHF Hyperlipidemia HTN Encephalopathy Acute CVA PLAN: NEURO: -Versed discontinued 01/18 , still unresponsive-to pain. Currently all sedation off. Concern for metabolism of Versed being prolonged in the setting of a elevated creatinine. Neuro status slightly improved now with spontaneous eye opening visual tracking responding to pain -Obtain EEGfollow-up result -01/21 CT brain-abnormality left parietal occipital region.01/[address] brain- dated -Follow-up stat MRI -Altered mental status/encephalopathy secondary to metabolic encephalopathy and severe sepsis -Continue sedation vacation -Trend ammonia level -Maintain systolic blood pressure less than 140mmHg RESP: -Emergently intubated and placed on mechanical ventilation for worsening metabolic acidosis altered mental status and hypoxia -PRVC/AC, Ventilator bundle -DuoNeb every 6 hours scheduled and as needed -Continue CPAP trials, much improved , toleration greater than 9 hours -day 7 ETT-discussion regarding possible tracheostomy, palliative care following CV: -Developed A. fib with RVR 01/17/2018. Cardizem 30 mg 4 times daily initiated. Carvedilol resume -Currently rate controlled but remains in A. fib-heparin discontinued 01/21 -s/p Normal saline IV fluids 4L bolus since ICU admission -Started on Lasix 40 mg 3 times daily by nephrology. Diuresis 2 L in the last 12 hours overnight -Keep MAP > 65, Levophed and vasopressin discontinued 01/18 -2D echo 07/24/17: Estimated EF 45-50%, abnormal LV diastolic function, mild to moderate AR -Repeat 2D echo- F/U results GI: -Tube feeds with Nepro, IV famotidine -Bowel regimen : -Monitor renal function closely. Prince catheter. Patient's previous indwelling catheter was removed by Dr. Feliciano 01/16/18 -Urology Dr. Feliciano is following -Nephrology Dr. Duarte following -Creatinine improved - -CT of abdomen pelvis on admission showed bilateral ureteral stents are in place and there is mild distention of the collecting systems bilaterally. ID: -Antibiotics Zosyn renally dosed, received vancomycin 1 dose -Blood urine and sputum cultures. Blood culture growing gram-negative rods and 3 out of 4 bottles-pseudomonas growing -ID consulted-Dr. Foster following -urine culture Pseudomonas -01/21 Resolution of leukocytosis and bandemia HEME: -Monitor CBC, coags ENDO: -Upon admission ,hyperkalemia treatment with IV insulin, IV bicarb, IV calcium, breathing treatment and Kayexalate -SSI PROPH: -Bilateral lower extremity SCDs. No pharmacological DVT prophylaxis at this time. famotidine LINES: -Right IJ central line placed 01/16/2018. Respiratory therapist placed art line 01/16/18-central line and arterial line discontinued 01/20 Palliative care has been consulted to define goals of care My billing statement This patient remains critically ill with one or more organ systems which are or may become a threat to life. I have spent in excess of 31 minutes discontinuously in the care and management of this patient. This time is exclusive of procedures, and includes, but is not limited to, evaluation of the patient, review of the medical record, discussions with family, consultants, nursing staff, or respiratory therapy, and documentation in the medical record. Code Status: Full Discussed Condition With: Family at bedside to include patient's son and daughter, Dr. Kemp, neurology, and CODING ASSISTANT at bedside
[2018-01-22] MEDS ORDERED: Labetalol HCl Inj 100 MG/20 ML Vial IV.PUSH ONE (14:00)
--- NOTE | 2018-01-22 15:38 | ECHRPT ---
Indication: SEPSIS POSS ENDOCARDITIS CONCLUSIONS Normal left ventricular size. Mild concentric left ventricular hypertrophy. The left ventricular systolic function is low normal with an estimated ejection fraction in the rang e of 50- 55%. Trace aortic valve regurgitation. There is trace tricuspid valve regurgitation. BP: / HR: Rhythm: Atrial fibrillation, PVCs MEASUREMENTS (Male / Female) Normal Values Technical Quality:Fair, Technically difficult stud y 2D ECHO LV Diastolic Diameter PLAX 5.7 cm 4.2 - 5.9 / 3.9 - 5.3 cm LV Systolic Diameter PLAX 4.3 cm IVS Diastolic Thickness 1.1 cm 0.6 - 1.0 / 0.6 - 0.9 cm LVPW Diastolic Thickness 1.2 cm 0.6 - 1.0 / 0.6 - 0.9 cm LV Relative Wall Thickness 0.4 LVOT Diameter 2.0 cm Aortic Root Diameter 2.7 cm DOPPLER AV Peak Velocity 189.0 cm/s AV Peak Gradient 14.3 mmHg LVOT Peak Velocity 112.0 cm/s LVOT Peak Gradient 5.0 mmHg AV Area Cont Eq pk 1.9 cm TR Peak Velocity 181.0 cm/s TR Peak Gradient 13.1 mmHg Right Atrial Pressure 10.0 mmHg Pulmonary Artery Systolic Pressu 23.1 mmHg Right Ventricular Systolic Press 23.1 mmHg PV Peak Velocity 88.8 cm/s PV Peak Gradient 3.2 mmHg FINDINGS LEFT VENTRICLE Normal left ventricular size. Mild concentric left ventricular hypertrophy. The left ventricular systolic function is low normal with an estimated ejection fraction in the rang e of 50- 55%. RIGHT VENTRICLE The right ventricle was not well visualized. LEFT ATRIUM The left atrial size is normal. RIGHT ATRIUM The right atrium is not well visualized. ATRIAL SEPTUM Normal atrial septal thickness without atrial level shunting by limited color doppler interrogation. AORTA The aortic root and proximal ascending aorta are not well visualized. MITRAL VALVE Structurally normal mitral valve. No mitral valve stenosis or regurgitation. AORTIC VALVE Trace aortic valve regurgitation. TRICUSPID VALVE There is trace tricuspid valve regurgitation. PULMONARY VALVE The pulmonary valve is not well visualized. VESSELS The inferior vena cava is normal in size. PERICARDIUM No pericardial effusion. Eric Foster MD, FACC, [facility] [place] (Electronically Signed) Final Date:22 January 2018 15:37
[2018-01-22] MEDS: Labetalol HCl Inj 20 MG/4 ML Vial IV.PUSH PRN (17:25)
--- NOTE | 2018-01-22 18:19 | P.PNNP ---
Subjective Interval history: Patient seen in AM, remain on the vent. and unresponsive. Physical Exam Vital signs: Vital Signs 01/21/18 19:00 01/21/18 19:38 01/21/18 20:00 Temperature 100.0 F H Pulse Rate 90 90 90 Respiratory Rate 20 21 26 H Blood Pressure 169/81 H 172/75 H Pulse Oximetry 100 100 99 01/21/18 22:00 01/22/18 00:00 01/22/18 02:00 Temperature 100.3 F H Pulse Rate 89 93 H 98 H Respiratory Rate 22 Blood Pressure 170/79 H Pulse Oximetry 98 01/22/18 03:20 01/22/18 03:22 01/22/18 04:00 Temperature 99.8 F H Pulse Rate 86 100 H Respiratory Rate 22 22 21 Blood Pressure 148/63 H Pulse Oximetry 98 98 01/22/18 06:00 01/22/18 07:45 01/22/18 07:50 Temperature Pulse Rate 99 H 105 H Respiratory Rate 22 20 Blood Pressure Pulse Oximetry 97 01/22/18 08:00 01/22/18 09:44 01/22/18 10:00 Temperature 99.9 F H Pulse Rate 88 100 H Respiratory Rate Blood Pressure 154/68 H Pulse Oximetry 98 100 01/22/18 11:49 01/22/18 12:00 01/22/18 14:00 Temperature Pulse Rate 78 109 H Respiratory Rate 20 Blood Pressure Pulse Oximetry 99 01/22/18 15:16 01/22/18 16:00 Temperature Pulse Rate 88 Respiratory Rate 24 Blood Pressure Pulse Oximetry 98 Intake & Output 01/21/18 01/22/18 01/22/18 18:59 06:59 18:59 Intake Total 1170 / 1170 914 / 914 Output Total 2125 / 2125 1100 / 1100 Balance -955 / -955 -186 / -186 Weight 82.8 kg Intake: IV 510 / 510 Heparin/D5W 25,000 U/250 mL 25, 310 / 310 000 unit In 250 ml @ 1,000 UNITS/HR 10 mls/hr IV.CONT TITRATE PRN Rx#:[id number] Maxipime Inj 2,000 MG In NS Inj 100 / 100 100 ML @ 200 mls/hr IV.SIG Q24H [facility] Rx#:[id number] KCl 20 mEq Premix Inj 20 meq In 100 / 100 100 ml @ 50 mls/hr IV.SIG ONCE ONE Rx#:[id number] Oral 0 / 0 Tube Feeding 360 / 360 714 / 714 Tube Irrigant 200 / 200 Water Bolus Amount 300 / 300 Output: Urine 1000 / 1000 Urine Amount (Catheter) 1125 / 1125 1100 / 1100 Indwelling Urethral Catheter 1125 / 1125 1100 / 1100 Other: Date of Last Bowel Movement 01/21/18 01/21/18 01/21/18 # Bowel Movements 1 # Incontinent Bowel Movements 2 1 Narrative: awakens and wiggled r toes for me not left opens eyes a little - Urinary Catheter Management Indwelling Urethral Catheter Cath placed during this visit: yes Reason for continuing: Chronic Urinary Retention Insertion date: 01/16/18 Insertion time: 17:30 Assessment and Plan - Assessment (1) Acute kidney injury Code(s): N17.9 - Acute kidney failure, unspecified Status: Acute Plan: Patient with Acute kidney injury and Hyperkalemia, Urine out put is low. Most likely has ATN due to hypotension, now BP is better, on Lasix 40 mg TID, K is low. Creatinine continue to improve, Na. is 152. K is low and replaced. non oliguric, urine out put is good after the Lasix was stopped. give Lasix PRN if needed. Follow the urine out put and BMP. Avoid Nephrotoxins. No improvement in Encephalopathy. D/W the and other family at bed side. (2) Sepsis Code(s): A41.9 - Sepsis, unspecified organism Status: Acute Plan: Blood cultures positive for gram negative rods, sensitivity pending. On Zosyn. (3) Acute UTI Code(s): N39.0 - Urinary tract infection, site not specified Status: Acute Plan: Has received Rocephin. Culture is pending. (4) Respiratory failure Code(s): J96.90 - Respiratory failure, unspecified, unspecified whether with hypoxia or hypercapnia Status: Acute Plan: Patient is intubated on very mild sedation.
--- NOTE | 2018-01-22 20:19 | MG ---
cc: Delmer Green MD, PhD TEST NUMBER: [id number] TECHNIQUE: A 17-channel EEG. DESCRIPTION: The background rhythm reveals generalized slowing in the delta frequency at 3-4 Hz. Amplitude is about 20 microvolts. There are no lateralizing features. There are no epileptiform discharges. Photic stimulation results in no significant driving response. INTERPRETATION: Abnormal study consistent with a diffuse encephalopathy. Delmer rGeen MD, PhD VINCENT/soraya , 07:48 PM , 07:51 PM
[2018-01-22] MEDS: Carvedilol 6.25 MG Tablet PO SCH (22:00)
[2018-01-23] MEDS: Oral Hygiene Kit OROPHARYNG SCH ×4 (01:54→16:40)
[2018-01-23] MEDS: Labetalol HCl Inj 20 MG/4 ML Vial IV.PUSH PRN ×3 (01:55→15:06)
[2018-01-23] MEDS: hydrALAZINE HCl Inj 20 MG/ML Vial IV.PUSH PRN ×3 (04:12→20:59)
[2018-01-23 05:11] LABS: Prothrombin Time 10.3 sec (9.8-11.6)
[2018-01-23 05:28] LABS: Baso # (Auto) 0.1 th/mm3 (0.0-0.2); Baso % (Auto) 0.4 % (0.0-2.0); Eos # (Auto) 0.3 th/mm3 (0.0-0.4); Eos % (Auto) 1.7 % (0.0-4.0); Hematocrit 37.6 % (39.0-51.0); Hemoglobin 12.6 gm/dL (13.0-17.0); Lymph # (Auto) 1.6 th/mm3 (1.0-4.8); Lymph % (Auto) 9.5 % (9.0-44.0); Mean Corpuscular HGB Conc 33.4 % (32.0-36.0); Mean Corpuscular Hemoglobin 29.3 pg (27.0-34.0); Mean Corpuscular Volume 87.5 fL (80.0-100.0); Mean Platelet Volume 10.4 fL (7.0-11.0); Mono # (Auto) 1.6 th/mm3 (0.0-0.9); Mono % (Auto) 9.6 % (0.0-8.0); Neut # (Auto) 13.4 th/mm3 (1.8-7.7); Neut % (Auto) 78.8 % (16.0-70.0); Platelet Count 248 th/mm3 (150-450); Red Cell Distribution Width 15.3 % (11.6-17.2)
[2018-01-23 05:31] LABS: Calcium 7.9 mg/dL (8.5-10.1); Carbon Dioxide 29.5 meq/L (21.0-32.0); Magnesium 3.2 mg/dL (1.5-2.5); Phosphorus 3.1 mg/dL (2.5-4.9); Potassium 3.2 meq/L (3.5-5.1)
--- NOTE | 2018-01-23 05:51 | XR ---
EXAM DATE: 01/23/2018 5:45 AM EST AGE/SEX: 82 years / Male INDICATIONS: Respiratory failure. CLINICAL DATA: This is the patient's subsequent encounter. Patient reports that signs and symptoms h ave been present for 2 days and indicates a pain score of Nonresponsive. MEDICAL/SURGICAL HISTORY: . COPD. Carcinoma, bladder. Carcinoma, breast. Renal calculi. . Disc ectomy, cervical. Pacemaker. COMPARISON: C, CHEST 1V SINGLE AP, 01/20/2018. . FINDINGS: The endotracheal tube, enteric tube and EKG leads are again noted. There is linear atelectasis in bot h midlung zones as before. No consolidation or effusion. Cardiomegaly. CONCLUSION: Stable appearance of the chest. Electronically signed by: Thai Armstrong MD 01/23/2018 5:50 AM EST
[2018-01-23 08:10] LABS: Eosinophils 1 % (0-4); Lymphocytes 13 % (9-44); Monocytes 4 % (0-8); Myelocytes 1 % (0-0)
[2018-01-23 08:11] LABS: Platelet Estimate Normal (Normal); Toxic Granulation 1+
--- NOTE | 2018-01-23 08:12 | P.PNNEU ---
Subjective Active Medications: Active Medications Acetaminophen (Tylenol) 650 mg PO Q4H PRN PRN Reason: Temp > 100.4 Last Admin: 01/21/18 00:59 Dose: 650 mg Al Hydroxide/Mg Hydroxide (Milk Of Magn[place]s Liq) 30 ml PO Q12H PRN PRN Reason: Mild Constipation Albuterol (Duoneb Neb (Prn)) 1 ampul NEB Q4HR NEB PRN PRN Reason: SOB/wheezing Amlodipine Besylate (Norvasc) 10 mg PO DAILY [facility] Last Admin: 01/16/18 09:19 Dose: 10 mg Atorvastatin Calcium (Lipitor) 10 mg PO DAILY [facility] Last Admin: 01/22/18 08:46 Dose: 10 mg Bisacodyl (Dulcolax Supp) 10 mg RECTAL DAILY PRN PRN Reason: SEVERE CONSITIPATION Carvedilol (Coreg) 6.25 mg PO BID [facility] Last Admin: 01/22/18 22:00 Dose: 6.25 mg Chlorhexidine Gluconate (Peridex 0.12% Oral Kit) 15 ml OROPHARYNG BID@0800, 2000 [facility] Last Admin: 01/22/18 21:36 Dose: 15 ml Diltiazem HCl (Cardizem) 30 mg PO QID [facility] Last Admin: 01/22/18 22:00 Dose: 30 mg Escitalopram Oxalate (Lexapro) 10 mg PO DAILY [facility] Last Admin: 01/16/18 09:18 Dose: 10 mg Famotidine (Pepcid Pf Inj) 10 mg IV.PUSH Q12HR [facility] Last Admin: 01/22/18 21:36 Dose: 10 mg Gabapentin (Neurontin) 300 mg PO BID [facility] Last Admin: 01/16/18 09:19 Dose: 300 mg Hydralazine HCl (Apresoline Inj) 10 mg IV.PUSH Q6H PRN PRN Reason: SEE LABEL COMMENTS Last Admin: 01/23/18 04:12 Dose: 10 mg Propofol (Diprivan 1000 Mg/100 Ml Inj) 1,000 mg in 100 mls @ 2.784 mls/hr IV.CONT TITRATE PRN; Protocol PRN Reason: Per Protocol Cefepime HCl 2,000 mg/ Sodium (Chloride) 100 mls @ 200 mls/hr IV.SIG Q24H [facility] Last Infusion: 01/22/18 20:51 Dose: Infused Isosorbide Mononitrate (Imdur) 30 mg PO DAILY [facility] Last Admin: 01/16/18 09:18 Dose: 30 mg Labetalol HCl (Trandate Inj) 10 mg IV.PUSH Q4H PRN PRN Reason: SEE LABEL COMMENTS Last Admin: 01/23/18 06:30 Dose: 10 mg Lactulose (Lactulose Liq) 30 ml PO DAILY PRN PRN Reason: SEVERE CONSITIPATION Lactulose (Lactulose Liq) 30 ml PO BID [facility] Last Admin: 01/22/18 21:37 Dose: Not Given Miscellaneous Medication () 1 each OROPHARYNG 0000,0400,1200,1600 [facility] Last Admin: 01/23/18 04:17 Dose: 1 each Ondansetron HCl (Zofran Inj) 4 mg IV.PUSH Q6H PRN PRN Reason: NAUSEA OR VOMITING Senna/Docusate Sodium (Bel-Colace) 1 tab PO BID [facility] Last Admin: 01/22/18 21:37 Dose: Not Given Sennosides (Senokot) 17.2 mg PO Q12H PRN PRN Reason: Moderate Constipation Sodium Chloride (Ns Flush) 2 ml IV.FLUSH BID [facility] Last Admin: 01/22/18 21:37 Dose: 2 ml Sodium Chloride (Ns Flush) 2 ml IV.FLUSH PRN PRN PRN Reason: FLUSH AFTER USING IV ACCESS Sterile Water (Free Water) 100 ml G-TUBE Q6HR [facility] Tamsulosin HCl (Flomax) 0.4 mg PO HS [facility] Last Admin: 01/22/18 22:00 Dose: Not Given Allergies/Adverse Reactions: Allergies Allergy/AdvReac Type Severity Reaction Status Date / Time No Known Allergies Allergy Verified 01/02/18 12:33 Physical Exam Vital signs: Vital Signs 01/22/18 09:44 01/22/18 10:00 01/22/18 11:00 Temperature Pulse Rate 100 H 98 H Respiratory Rate 22 Blood Pressure 154/68 H 164/72 H Pulse Oximetry 100 98 01/22/18 11:49 01/22/18 12:00 01/22/18 13:00 Temperature 100 F H Pulse Rate 105 H 101 H Respiratory Rate 20 26 H 28 H Blood Pressure 172/70 H 173/72 H Pulse Oximetry 99 100 99 01/22/18 13:31 01/22/18 14:00 12/06/18 14:05 Temperature Pulse Rate 73 74 73 Respiratory Rate 28 H 29 H 28 H Blood Pressure 128/60 122/65 Pulse Oximetry 99 99 99 01/22/18 14:30 01/22/18 14:44 01/22/18 15:00 Temperature Pulse Rate 70 72 77 Respiratory Rate 33 H 34 H 34 H Blood Pressure 146/68 H 135/62 144/61 H Pulse Oximetry 100 99 99 01/22/18 15:16 01/22/18 15:30 01/22/18 16:00 Temperature 100.7 F H Pulse Rate 82 85 Respiratory Rate 24 21 23 Blood Pressure 138/59 L 143/64 H Pulse Oximetry 98 98 98 01/22/18 16:30 01/22/18 17:00 01/22/18 17:30 Temperature Pulse Rate 87 93 H 87 Respiratory Rate 23 23 22 Blood Pressure 131/63 134/62 132/63 Pulse Oximetry 98 98 98 01/22/18 18:00 01/22/18 18:30 01/22/18 19:00 Temperature Pulse Rate 82 79 81 Respiratory Rate 21 22 22 Blood Pressure 133/62 119/59 L 119/58 L Pulse Oximetry 99 98 99 01/22/18 19:30 01/22/18 19:37 01/22/18 20:00 Temperature 99.6 F Pulse Rate 81 83 Respiratory Rate 22 22 22 Blood Pressure 144/65 H 158/66 H Pulse Oximetry 98 98 98 01/22/18 20:30 01/22/18 21:00 01/22/18 21:32 Temperature Pulse Rate 78 81 98 H Respiratory Rate 20 21 27 H Blood Pressure 126/60 139/65 112/81 Pulse Oximetry 99 99 98 01/22/18 22:00 01/22/18 22:30 01/22/18 23:00 Temperature Pulse Rate 97 H 90 90 Respiratory Rate 22 22 23 Blood Pressure 138/71 152/62 H 136/61 Pulse Oximetry 98 98 98 01/22/18 23:06 01/22/18 23:30 18 23:46 Temperature Pulse Rate 83 85 Respiratory Rate 20 21 21 Blood Pressure 144/62 H 121/58 L Pulse Oximetry 99 99 99 01/23/18 00:00 01/23/18 00:30 01/23/18 01:00 Temperature 98.9 F Pulse Rate 82 81 77 Respiratory Rate 21 21 19 Blood Pressure 116/65 129/64 130/80 Pulse Oximetry 98 98 98 01/23/18 01:30 01/23/18 01:52 01/23/18 02:00 Temperature Pulse Rate 81 85 72 Respiratory Rate 19 20 19 Blood Pressure 148/65 H 143/69 H 137/60 Pulse Oximetry 99 99 99 01/23/18 02:30 01/23/18 03:00 01/23/18 03:09 Temperature Pulse Rate 75 80 Respiratory Rate 19 20 20 Blood Pressure 131/72 133/67 Pulse Oximetry 98 98 01/23/18 03:30 01/23/18 03:55 01/23/18 04:00 Temperature 98.6 F Pulse Rate 82 85 80 Respiratory Rate 21 21 22 Blood Pressure 145/101 H 141/63 H 147/64 H Pulse Oximetry 98 98 98 01/23/18 06:00 01/23/18 07:32 Temperature Pulse Rate 92 H Respiratory Rate 23 Blood Pressure Pulse Oximetry 100 Intake & Output 01/22/18 01/23/18 01/23/18 18:59 06:59 18:59 Intake Total 548 / 548 701 / 701 Output Total 950 / 950 975 / 975 Balance -402 / -402 -274 / -274 Weight 84.5 kg Intake: IV 100 / 100 Maxipime Inj 2,000 MG In NS Inj 100 / 100 100 ML @ 200 mls/hr IV.SIG Q24H [facility] Rx#:[id number] Tube Feeding 548 / 548 501 / 501 Tube Irrigant 100 / 100 Output: Urine Amount (Catheter) 950 / 950 975 / 975 Indwelling Urethral Catheter 950 / 950 975 / 975 Other: Date of Last Bowel Movement 01/22/18 01/23/18 # Bowel Movements 1 2 Narrative: pupils = will open eyes up a little to voice not follow command for me does rxt to r threat a little - Urinary Catheter Management Indwelling Urethral Catheter Cath placed during this visit: yes Reason for continuing: Chronic Urinary Retention Insertion date: 01/16/18 Insertion time: 17:30 Objective Laboratory Results - last 24 hr 01/22/18 01/23/18 01/23/18 13:45 03:21 03:21 WBC 17.0 H RBC 4.30 L Hgb 12.6 L Hct 37.6 L MCV 87.5 MCH 29.3 MCHC 33.4 RDW 15.3 Plt Count 248 D MPV 10.4 Prelim Diff (Auto) Slide review pending Neut % (Auto) 78.8 H Lymph % (Auto) 9.5 [place] % (Auto) 9.6 H Eos % (Auto) 1.7 Baso % (Auto) 0.4 Neut # (Auto) 13.4 H Lymph # (Auto) 1.6 [place] # (Auto) 1.6 H Eos # (Auto) 0.3 Baso # (Auto) 0.1 Differential Comment . PT 10.0 10.3 INR 1.0 1.0 Sodium Potassium Chloride Carbon Dioxide Anion Gap BUN Creatinine Estimated GFR Random Glucose Calcium Phosphorus Magnesium 01/23/18 03:21 WBC RBC Hgb Hct MCV MCH MCHC RDW Plt Count MPV Prelim Diff (Auto) Neut % (Auto) Lymph % (Auto) [place] % (Auto) Eos % (Auto) Baso % (Auto) Neut # (Auto) Lymph # (Auto) [place] # (Auto) Eos # (Auto) Baso # (Auto) Differential Comment PT INR Sodium 155 H Potassium 3.2 L Chloride 116 H Carbon Dioxide 29.5 Anion Gap 10 BUN 107 H Creatinine 2.90 H Estimated GFR 21 L Random Glucose 175 H Calcium 7.9 L Phosphorus 3.1 Magnesium 3.2 H Microbiology 01/20/18 05:51 Aerobic Blood Culture - Preliminary Blood - Peripheral No growth in 2 days Anaerobic Blood Culture - Preliminary No growth in 2 days 01/20/18 06:01 Aerobic Blood Culture - Preliminary Blood - Peripheral No growth in 2 days Anaerobic Blood Culture - Preliminary No growth in 2 days Review/Management - Review/Management Plan: imp labs ok looks better fu echo and ct pacemaker sepsis likley left occipital cva some hemorrhagic component vs abcess less likley 01/23/18 he was more interactive yesterday bun 107 creat a bit better continue to hold sedatives echo and eeg neg check us carotid repeat ct no change this is likely hemorrhagic infarct afib a large abcess could be considered and i will have nusu weigh in my hope is he will awaken off sedatives as he metabolic condition improves i will be out of town call dr davis over weekend if ? o/w i will fu friday
[2018-01-23] MEDS: dilTIAZem 30 MG Tablet PO SCH ×4 (08:25→20:59)
[2018-01-23] MEDS: Chlorhexidine 0.12% Oral Kit 15 ML UDC OROPHARYNG SCH ×2 (08:25→20:58)
[2018-01-23] MEDS: Famotidine PF Inj 20 MG/2 ML Vial IV.PUSH SCH ×2 (08:26→21:00)
[2018-01-23] MEDS: Senna/Docusate Sodium 8.6/50 MG Tablet PO SCH ×2 (08:26→20:59)
[2018-01-23] MEDS: Carvedilol 6.25 MG Tablet PO SCH ×2 (08:26→20:59)
--- NOTE | 2018-01-23 09:14 | P.PNCC ---
Subjective Subjective Remarks/Hospital Course: Mr. Cheung is a 82-year-old male with bladder cancer, thoracic and abdominal aortic aneurysm, Bronchiectasis, Restrictive lung disease, COPD, on 2L of supplemental O2, history of congestive heart failure, Hyperlipidemia, HTN who recently underwent recent cystoscopy with meatal dilation about 4 days ago. According to Dr. 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 He underwent laser ablation of the tumor masses with biopsy along with laser lithotripsy and extraction of the right ureteral calculus. Bilateral stents were placed. Patient came to the ER today with symptoms of UTI and sepsis, altered mental status. UA showed evidence of UTI. Patient was started on Rocephin and admitted to hospitalist service. Over the course of the day patient clinically started deteriorating hypotensive with worsening encephalopathy hardly responsive. Patient was transferred to the ICU and critical care medicine was consulted. I evaluated the patient in the ICU he is very lethargic encephalopathy. Currently received 2 L normal saline bolus and had been started on Levophed currently at 12 mcg/min. Despite this patient is hypotensive. Initial ABG showed a pH of 7.25 PCO2 50 base excess -5 now slightly worse with pH of 7.23 PCO2 52. Due to severe sepsis and metabolic acidosis patient is not a candidate for BiPAP. WBC count of on admission was 14 with left shift now has worsened to 20.4. Initial lactic acid was 2,2 repeat lactic acid is pending at this time. Patient previously was sent home with indwelling Prince by Dr. Cabrera , he removed the Prinec today. Patient has been oliguric and in renal failure. Will replace the Prince for strict hourly intake output SUBJ 01/17: Remains critical intubated sedated. Blood cultures all bottles growing gram-negative rods. Currently on Zosyn. Creatinine has worsened to 3, potassium is 6.2. Urine output has been marginal 10-15 mL/h. CVP is only 9. Fluid challenge with 1 L normal saline bolus and maintenance fluid 100 mL/h. Nephrology consulted, CMP at noon. Treatment for hyperkalemia ordered with IV insulin followed by dextrose, calcium, bicarb, Kayexalate and breathing treatments. 01/18: Remains critical, remains in multiorgan failure. Started on Lasix by nephrology yesterday urine output approximately 1 L, worsening BUN/creatinine 66 /3.74. Will discuss with nephrology regarding dialysis though there is no acute indication. WBC count slightly improved to 15.2. Patient developed A. fib with RVR yesterday, started on Cardizem infusion after bolus. Will DC Lovenox for DVT prophylaxis and start on IV heparin for persistent A. fib. 01/19: Patient continues on heparin and Cardizem infusion. WBC count slightly improved. Urine output increased 2 L in 12 hours last evening. Patient continues in A. fib but rate controlled will transition to p.o.. 01/20: T-max 101.0 Cardizem has been transition to p.o. 30 mg 4 times daily. The patient continues to fail CPAP trials. Urine output continues to increase. Continue continued improvement in WBC count. No change in neurological status , despite being off sedation greater than 48 hours continue to monitor. 01/21: Late entry note patient seen approximately at 11 AM .afebrile. Patient remains uncertain responsive despite> than 48 hours of discontinuation of Versed however patient noted to have an elevated creatinine so significantly less clearance of the prolonged Versed infusion stat labs being obtained ammonia level cortisol level. Neurology also has been consulted. Stat CT of the head obtained revealed abnormality in the left parietal occipital region, heparin placed on hold. Stat MRI is pending. Patient tolerating CPAP trials today greater than 2-1/2 hours thus far. 01/22: Neuro assessment performed earlier this a.m. patient has spontaneous eye opening moving head responding to pain , noted visual tracking. Repeat CT head obtained this a.m. per neurology recommendations, noted unchanged. Inability to obtain MRI secondary to pacemaker. EEG results are pending .maintain systolic blood pressure less than 140 PRN antihypertensives initiated. Carvedilol resumed. Echo pending. Extensive discussion with family at bedside patient's and children medical status update given all questions answered. 01/23: Afebrile .No acute change overnight. Systolic blood pressure being maintained less than 140. Carotid ultrasound is pending. Patient noted to be hyponatremic free water flushes added to medication regimen. CPAP trials continued. Objective Vital Signs / I&O: Vital Signs 01/22/18 09:44 01/22/18 10:00 01/22/18 11:00 Temperature Pulse Rate 100 H 98 H Respiratory Rate 22 Blood Pressure 154/68 H 164/72 H Pulse Oximetry 100 98 01/22/18 11:49 01/22/18 12:00 01/22/18 13:00 Temperature 100 F H Pulse Rate 105 H 101 H Respiratory Rate 20 26 H 28 H Blood Pressure 172/70 H 173/72 H Pulse Oximetry 99 100 99 01/22/18 13:31 01/22/18 14:00 01/22/18 14:05 Temperature Pulse Rate 73 74 73 Respiratory Rate 28 H 29 H 28 H Blood Pressure 128/60 122/65 Pulse Oximetry 99 99 99 01/22/18 14:30 01/22/18 14:44 01/22/18 15:00 Temperature Pulse Rate 70 72 77 Respiratory Rate 33 H 34 H 34 H Blood Pressure 146/68 H 135/62 144/61 H Pulse Oximetry 100 99 99 01/22/18 15:16 01/22/18 15:30 01/22/18 16:00 Temperature 100.7 F H Pulse Rate 82 85 Respiratory Rate 24 21 23 Blood Pressure 138/59 L 143/64 H Pulse Oximetry 98 98 98 01/22/18 16:30 01/22/18 17:00 01/22/18 17:30 Temperature Pulse Rate 87 93 H 87 Respiratory Rate 23 23 22 Blood Pressure 131/63 134/62 132/63 Pulse Oximetry 98 98 98 01/22/18 18:00 01/22/18 18:30 01/22/18 19:00 Temperature Pulse Rate 82 79 81 Respiratory Rate 21 22 22 Blood Pressure 133/62 119/59 L 119/58 L Pulse Oximetry 99 98 99 01/22/18 19:30 01/22/18 19:37 01/22/18 20:00 Temperature 99.6 F Pulse Rate 81 83 Respiratory Rate 22 22 22 Blood Pressure 144/65 H 158/66 H Pulse Oximetry 98 98 98 01/22/18 20:30 01/22/18 21:00 01/22/18 21:32 Temperature Pulse Rate 78 81 98 H Respiratory Rate 20 21 27 H Blood Pressure 126/60 139/65 112/81 Pulse Oximetry 99 99 98 01/22/18 22:00 18 22:30 01/22/18 23:00 Temperature Pulse Rate 97 H 90 90 Respiratory Rate 22 22 23 Blood Pressure 138/71 152/62 H 136/61 Pulse Oximetry 98 98 98 01/22/18 23:06 01/22/18 23:30 01/22/18 23:46 Temperature Pulse Rate 83 85 Respiratory Rate 20 21 21 Blood Pressure 144/62 H 121/58 L Pulse Oximetry 99 99 99 01/23/18 00:00 01/23/18 00:30 01/23/18 01:00 Temperature 98.9 F Pulse Rate 82 81 77 Respiratory Rate 21 21 19 Blood Pressure 116/65 129/64 130/80 Pulse Oximetry 98 98 98 01/23/18 01:30 01/23/18 01:52 01/23/18 02:00 Temperature Pulse Rate 81 85 72 Respiratory Rate 19 20 19 Blood Pressure 148/65 H 143/69 H 137/60 Pulse Oximetry 99 99 99 01/23/18 02:30 01/23/18 03:00 01/23/18 03:09 Temperature Pulse Rate 75 80 Respiratory Rate 19 20 20 Blood Pressure 131/72 133/67 Pulse Oximetry 98 98 01/23/18 03:30 01/23/18 03:55 01/23/18 04:00 Temperature 98.6 F Pulse Rate 82 85 80 Respiratory Rate 21 21 22 Blood Pressure 145/101 H 141/63 H 147/64 H Pulse Oximetry 98 98 98 01/23/18 06:00 01/23/18 07:32 01/23/18 08:00 Temperature Pulse Rate 92 H 81 Respiratory Rate 23 Blood Pressure Pulse Oximetry 100 Intake & Output 01/22/18 01/23/18 01/23/18 18:59 06:59 18:59 Intake Total 548 / 548 701 / 701 Output Total 950 / 950 975 / 975 Balance -402 / -402 -274 / -274 Weight 84.5 kg Intake: IV 100 / 100 Maxipime Inj 2,000 MG In NS Inj 100 / 100 100 ML @ 200 mls/hr IV.SIG Q24H [facility] Rx#:[id number] Tube Feeding 548 / 548 501 / 501 Tube Irrigant 100 / 100 Output: Urine Amount (Catheter) 950 / 950 975 / 975 Indwelling Urethral Catheter 950 / 950 975 / 975 Other: Date of Last Bowel Movement 01/22/18 01/23/18 # Bowel Movements 1 2 Result Diagrams: 01/23/18 03:21 01/23/18 03:21 Other Results: Laboratory Results WBC 17.0 th/mm3 (4.0-11.0) H 01/23/18 03:21 RBC 4.30 mil/mm3 (4.50-5.90) L 01/23/18 03:21 Hgb 12.6 gm/dL (13.0-17.0) L 01/23/18 03:21 Hct 37.6 % (39.0-51.0) L 01/23/18 03:21 MCV 87.5 fL (80.0-100.0) 01/23/18 03:21 MCH 29.3 pg (27.0-34.0) 01/23/18 03:21 MCHC 33.4 % (32.0-36.0) 01/23/18 03:21 RDW 15.3 % (11.6-17.2) 01/23/18 03:21 Plt Count 248 th/mm3 (150-450) D 01/23/18 03:21 MPV 10.4 fL (7.0-11.0) 01/23/18 03:21 Prelim Diff (Auto) Slide review pending 01/23/18 03:21 Neut % (Auto) 78.8 % (16.0-70.0) H 01/23/18 03:21 Lymph % (Auto) 9.5 % (9.0-44.0) 01/23/18 03:21 Boyle % (Auto) 9.6 % (0.0-8.0) H 01/23/18 03:21 Eos % (Auto) 1.7 % (0.0-4.0) 01/23/18 03:21 Baso % (Auto) 0.4 % (0.0-2.0) 01/23/18 03:21 Neut # (Auto) 13.4 th/mm3 (1.8-7.7) H 01/23/18 03:21 Lymph # (Auto) 1.6 th/mm3 (1.0-4.8) 01/23/18 03:21 Boyle # (Auto) 1.6 th/mm3 (0.0-0.9) H 01/23/18 03:21 Eos # (Auto) 0.3 th/mm3 (0.0-0.4) 01/23/18 03:21 Baso # (Auto) 0.1 th/mm3 (0.0-0.2) 01/23/18 03:21 WBC Differential Manual diff final 01/23/18 03:21 Seg Neuts % (Manual) 68 % (16-70) 01/23/18 03:21 Band Neuts % (Manual) 12 % (0-6) H 01/23/18 03:21 Lymphocytes % (Manual) 13 % (9-44) 01/23/18 03:21 Monocytes % (Manual) 4 % (0-8) 01/23/18 03:21 Eosinophils % (Manual) 1 % (0-4) 01/23/18 03:21 Basophils % (Manual) 1 % (0-2) 01/23/18 03:21 Metamyelocytes % (Man) 1 % (0-1) 01/21/18 05:00 Myelocytes % (Man) 1 % (0-0) H 01/23/18 03:21 Abs Neuts (Manual) 13.8 th/mm3 (1.8-7.7) H 01/23/18 03:21 Differential Comment . 01/23/18 03:21 Toxic Granulation 1+ (None) H 01/23/18 03:21 Toxic Vacuolation Present (None) H 01/16/18 15:50 Dohle Bodies Present (None) H 01/22/18 02:46 Platelet Estimate Normal (Normal) 01/23/18 03:21 Platelet Morphology Enlarged (Normal) H 01/23/18 03:21 RBC Morphology Normal (Normal) 01/16/18 15:50 PT 10.3 sec (9.8-11.6) 01/23/18 03:21 INR 1.0 Ratio 01/23/18 03:21 APTT 44.4 sec (23.4-31.7) H 01/21/18 05:00 Puncture Site Art line 01/20/18 14:18 Patient Temperature 98.6 01/20/18 14:18 O2 Saturation 97 % (90-100) 01/20/18 14:18 ABG pH 7.50 (7.380-7.420) H 01/20/18 14:18 ABG pCO2 34 mmHg (38-42) L 01/20/18 14:18 ABG pO2 167 mmHG (61-120) H 01/20/18 14:18 ABG HCO3 26 mmol/L (22-26) 01/20/18 14:18 ABG O2 Content 18.3 Vol % (12.0-20.0) 01/20/18 14:18 ABG Base Excess 3.2 mmol/L (-2-2) H 01/20/18 14:18 ABG Methemoglobin 1.5 % (0-2) 01/20/18 14:18 Mg Test Present 01/16/18 16:20 Hemoglobin 13.2 G/DL (12.0-16.0) 01/20/18 14:18 Carboxyhemoglobin 0.7 % (0-4) 01/20/18 14:18 O2 Delivery Device Ventilator 01/20/18 14:18 Liter Flow 15.00 L/M 01/16/18 16:20 Vent Setting Prvc/ac 550/18 01/20/18 14:18 Inspired O2 40 % 01/20/18 14:18 Critical Value No 01/20/18 14:18 Sodium 155 meq/L (136-145) H 01/23/18 03:21 Potassium 3.2 meq/L (3.5-5.1) L 01/23/18 03:21 Chloride 116 meq/L (98-107) H 01/23/18 03:21 Carbon Dioxide 29.5 meq/L (21.0-32.0) 01/23/18 03:21 Anion Gap 10 meq/L (5-15) 01/23/18 03:21 BUN 107 mg/dL (7-18) H 01/23/18 03:21 Creatinine 2.90 mg/dL (0.60-1.30) H 01/23/18 03:21 Estimated GFR 21 mL/min (>89) L 01/23/18 03:21 POC Glucose 125 mg/dl (68-110) H 01/16/18 16:00 Random Glucose 175 mg/dL (74-106) H 01/23/18 03:21 Lactic Acid 2.3 mmol/L (0.4-2.0) H 01/16/18 18:26 Calcium 7.9 mg/dL (8.5-10.1) L 01/23/18 03:21 Calcium Adj for Albumin 7.9 mg/dL (8.5-10.1) L 01/18/18 03:00 Phosphorus 3.1 mg/dL (2.5-4.9) 01/23/18 03:21 Magnesium 3.2 mg/dL (1.5-2.5) H 01/23/18 03:21 Total Bilirubin 0.8 mg/dL (0.2-1.0) 01/19/18 05:00 AST 72 U/L (15-37) H 01/19/18 05:00 ALT 85 U/L (12-78) H 01/19/18 05:00 Alkaline Phosphatase 197 U/L (45-117) H 01/19/18 05:00 Ammonia 19 mcmol/L (11-32) 01/21/18 16:25 Total Creatine Kinase 71 U/L (39-308) 01/17/18 03:30 Troponin I 0.24 ng/mL (0.02-0.05) H 01/17/18 03:30 Total Protein 6.7 g/dL (6.4-8.2) D 01/19/18 05:00 Albumin 1.8 g/dL (3.4-5.0) L 01/19/18 05:00 Lipase 56 U/L (73-393) L 01/16/18 04:29 Vitamin B12 1380 pg/mL (193-986) H 01/21/18 16:25 TSH 6.060 uIU/mL (0.358-3.740) H 01/21/18 16:25 Thyroxine (T4) 5.0 mcg/dL (4.5-12.1) 01/21/18 16:25 Cortisol 45.9 mcg/dL 01/21/18 16:25 Urine Color Sharifa (Yellw/Straw) 01/16/18 06:28 Urine Clarity Cloudy (Clear) H 01/16/18 06:28 Urine pH 5.0 (5.0-8.5) 01/16/18 06:28 Ur Specific [place] 1.021 (1.002-1.035) 01/16/18 06:28 Urine Protein 100 mg/dL (Neg-Trace) H 01/16/18 06:28 Urine Glucose (UA) Negative mg/dL (Negative) 01/16/18 06:28 Urine Ketones Negative mg/dL (Negative) 01/16/18 06:28 Urine Occult Blood Large (Negative) H 01/16/18 06:28 Urine Nitrate Negative (Negative) 01/16/18 06:28 Urine Bilirubin Negative (Negative) 01/16/18 06:28 Urine Urobilinogen 2.0 mg/dL (Less than 2) H 01/16/18 06:28 Ur Leukocyte Esterase Large (Negative) H 01/16/18 06:28 Urine RBC /hpf (0-3) 01/16/18 06:28 Urine WBC /hpf (0-5) 01/16/18 06:28 Amorphous Sediment Rare /hpf (None) H 01/16/18 06:28 Urine Bacteria Many /hpf (None) H 01/16/18 06:28 Hyaline Casts 12 /lpf (0-3) 01/16/18 06:28 Urine Mucus Few /lpf (Occasional) H 01/16/18 06:28 Micro UA Comment Cath-culture ind 01/16/18 06:28 Ur Microscopic Review Not Reportable 01/16/18 06:28 Urine Culture Comments Cath-cult indicated 01/16/18 06:28 Urine Osmolality 356 mosm/kg (300-1300) 01/17/18 14:30 Ur Random Urea 632 mg/dL 01/17/18 14:30 U Random Urea/Creat 9.58 mg/dL 01/17/18 14:30 Urine Creatinine 66 mg/dL 01/17/18 14:30 Impressions Abdomen/Pelvis CT 01/16/18 04:21 CONCLUSION: 1. Bilateral ureteral stents are in place and there is mild distention of the collecting systems bilaterally. Both kidneys enhance heterogeneously. 2. 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 01/22/18 05:00 CONCLUSION: 1. No significant interval change. 2. Stable large 6.1 x 3.9 cm left occipital abnormality, as above. Differential considerations include mass versus evolving hemorrhagic infarct. Consider contrast enhanced MRI examination for further characterization. . Chest X-Ray 01/23/18 04:00 CONCLUSION: Stable appearance of the chest. Objective Remarks: GENERAL: Elderly 82-year-old male who is encephalopathic currently intubated SKIN: Warm and dry. moderate bruising noted bilateral upper and lower extremities HEENT: Atraumatic. Normocephalic. Pupils equal and round. No scleral icterus. No injection or drainage, edentulous. Intubated NECK: Trachea midline. No JVD. CARDIO: Atrial fibrillation rate controlled. Left upper chest pacemaker in place. RESP: Air entry equal bilaterally with bilateral crackles. No wheezes or rhonchi ABD: +BS, soft, non-tender, nondistended. Bilateral flank tenderness on deep palpation EXT: Extremities without clubbing, cyanosis, or edema. NEURO: Intubated, Versed discontinued 01/18 @9 AM. Moves extremities weakly. Withdraws extremities x4 with deep stimulation, does not follow commands. Spontaneous eye opening with visual tracking. 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 Currently all sedation off. Concern for metabolism of Versed being prolonged in the setting of a elevated creatinine. Neuro status slightly improved now with spontaneous eye opening visual tracking responding to pain -Obtain EEGfollow-up result -01/21 CT brain-abnormality left parietal occipital region.01/[address] brain- dated -Follow-up stat MRI -Altered mental status/encephalopathy secondary to metabolic encephalopathy and severe sepsis -Continue sedation vacation -no avoid sedatives -Trend ammonia level -Maintain systolic blood pressure less than 140mmHg -Neurology following follow-up carotid ultrasound RESP: -Emergently intubated and placed on mechanical ventilation for worsening metabolic acidosis altered mental status and hypoxia -PRVC/AC, Ventilator bundle -DuoNeb every 6 hours scheduled and as needed -Continue CPAP trials, much improved , toleration greater than 9 hours -day 8 ETT-discussion regarding possible tracheostomy, palliative care following CV: -Developed A. fib with RVR 01/17/2018. Cardizem 30 mg 4 times daily initiated. Carvedilol resume -Currently rate controlled but remains in A. fib-heparin discontinued 01/21 -s/p Normal saline IV fluids 4L bolus since ICU admission -Started on Lasix 40 mg 3 times daily by nephrology. Diuresis 2 L in the last 12 hours overnight -Keep MAP > 65, Levophed and vasopressin discontinued 01/18 -2D echo 07/24/17: Estimated EF 45-50%, abnormal LV diastolic function, mild to moderate AR -Repeat 2D echo- F/U results GI: -Tube feeds with Nepro, IV famotidine -Bowel regimen : -Monitor renal function closely. Prince catheter. Patient's previous indwelling catheter was removed by Dr. Feliciano 01/16/18 -Urology Dr. Feliciano is following -Nephrology Dr. Duarte following -Creatinine improve-begin free water flush 100 cc every 6hr. sodium level 155 - -CT of abdomen pelvis on admission showed bilateral ureteral stents are in place and there is mild distention of the collecting systems bilaterally. ID: -Antibiotics Zosyn renally dosed, received vancomycin 1 dose -Blood urine and sputum cultures. Blood culture growing gram-negative rods and 3 out of 4 bottles-pseudomonas growing -ID consulted-Dr. Foster following -urine culture Pseudomonas -01/21 Resolution of leukocytosis and bandemia HEME: -Monitor CBC, coags ENDO: -Upon admission ,hyperkalemia treatment with IV insulin, IV bicarb, IV calcium, breathing treatment and Kayexalate -SSI PROPH: -Bilateral lower extremity SCDs. No pharmacological prophylaxis secondary to hemorrhagic infarct . famotidine LINES: -Right IJ central line placed 01/16/2018. Respiratory therapist placed art line 01/16/18-central line and arterial line discontinued 01/20 Palliative care has been consulted to define goals of care My billing statement This patient remains critically ill with one or more organ systems which are or may become a threat to life. I have spent in excess of 30 minutes discontinuously in the care and management of this patient. This time is exclusive of procedures, and includes, but is not limited to, evaluation of the patient, review of the medical record, discussions with family, consultants, nursing staff, or respiratory therapy, and documentation in the medical record. Code Status: Full Discussed Condition With: No family at bedside. Discussed with PHARMACEUTICAL SCIENTIST at bed. Medical status update with children/grandchildren performed at 6:15 PM last evening.
--- NOTE | 2018-01-23 09:58 | US ---
EXAM DATE: 01/23/2018 9:45 AM EST AGE/SEX: 82 years / Male INDICATIONS: Cerebrovascular accident. CLINICAL DATA: This is the patient's initial encounter. Patient reports that signs and symptoms have been present for 1 day and indicates a pain score of Nonresponsive. MEDICAL/SURGICAL HISTORY: Carcinoma, bladder. Chronic obstructive pulmonary disease. Congesti ve heart failure. Sleep apnea. BPH. Arrhythmia. Renal calculi. Thoracic and abdominal aortic aneurys m. . Bilateral cataract removal. Cervical spine surgery. Lithotripsy. Bilateral renal stents. COMPARISON: No prior exams available for comparison. VELOCITY PARAMETERS: ICA/CCA Ratio: Right 1.3 , Left 2.3 ICA: Right 124 cm/sec, Left 204 cm/sec CCA: Right 98 cm/sec, Left 90 cm/sec ECA: Right 66 cm/sec, Left 161 cm/sec Vertebral: Right 67 cm/sec antegrade, Left 74 cm/sec antegrade FINDINGS: Right Carotid: Mild arteriosclerotic plaque is visualized.The waveforms are within normal limits. Left Carotid: Moderate arteriosclerotic plaque is visualized. The waveforms are within normal limits . Other: None. CONCLUSION: 1. Right Internal Carotid Artery: Findings indicate <50% stenosis. 2. Left Internal Carotid Artery: Findings indicate 50-69% stenosis. This is likely in the higher as pect of this range. Electronically signed by: Nii Amaya MD 01/23/2018 9:56 AM EST
--- NOTE | 2018-01-23 11:37 | P.DIET ---
Nutritional Evaluation Type of nutrition evaluation: follow-up Nutrition consult regarding: Tube Feeding Objective - Diagnosis UTI, Dehydration, elevated troponin - Objective % IBW: 108 (IBW: 81kg) Body Weight Used for Calculations: IBW Energy Needs - Lower Range (kCal/kg): 25 Energy Needs - Upper Range (kCal/kg): 30 Lower Limit kCal/kg (kCals): 2,025 Upper Limit kCal/kg (kCals): 2,430 Lower Limit Protein Factor (Grams per Kg): 1 Upper Limit Protein Factor (Grams per Kg): 1.2 Lower Protein Needs (Protein): 87 Upper Protein Needs (Protein): 105 Dietitian Reviewed in Medical Record: Curent medications, Intake & Output, Labs , Medical history, Tube feeding Diet Order: TF only Objective Comments: PMH: bladder cancer, thoracic and abdominal aortic aneurysm, Bronchiectasis, Restrictive lung disease, COPD, CHF, Hyperlipidemia, HTN Meds include: Lipitor, Coreg, Lasix Labs include: BUN 107, Cr 2.90, GFR 21, random glucose 156 158 175, Mg 3.2 UOP: 1925mL Assessment Assessment: Pt is at high nutritional risk r/t dx and current clinical status. Pt on CPAP trials now. Pt receiving Nepro 1.8 @ 45mL/hr, running at goal rate currently. This is adequate at this time to meet pt's nutritional needs. If pt is to have HD, recommend increasing TF to 50ml/hr to provide 2160kcals, 97.2gms protein and 872mls free water. Wt noted, CBW = 84.5 (-2.6lb since admission). Will monitor TF tolerance, clinical course. Recommendations: TF Nepro with goal rate 45ml/hr If pt to have HD, recommend goal rate 50ml/hr Will monitor clinical course. Dietitian to Monitor: Lab values, Renal labs, Glucose level, Intake & Output, Tube feeding tolerance, Medical course
--- NOTE | 2018-01-23 11:44 | MB ---
cc: Juan C Doshi MD DATE: 01/23/2018 CHIEF COMPLAINT: Encephalopathy with a brain lesion. HISTORY OF PRESENT ILLNESS: This is an 82-year-old white male who several weeks ago underwent a urological procedure and required a Prince catheter to remain in place. This was removed, but he developed urosepsis requiring admission. His hospital course was complicated by respiratory failure, which required intubation and mechanical ventilation. He has subsequently suffered with persistent encephalopathy. A CT scan of the head done without contrast performed on 01/21/2018 and repeated on 01/22/2018 reveals a lesion within the left parieto-occipital lobes of the brain without significant edema or mass effect suggesting a subacute hemorrhagic stroke versus neoplasm versus brain abscess. Neurosurgical consultation has been requested. PAST MEDICAL HISTORY: Remarkable for a history of bladder cancer, COPD, benign prostatic hypertrophy, cardiac dysrhythmia, kidney stones, abdominal aortic aneurysm, bronchiectasis, thoracic aortic aneurysm, congestive heart failure, dyslipidemia and hypertension. PAST SURGICAL HISTORY: Remarkable for recent bladder surgery with placement of ureteral stents, bilateral cataract extraction, and a history of cervical spine surgery. He has also undergone placement of a cardiac pacemaker. HOME MEDICATIONS: 1. Albuterol sulfate. 2. Carvedilol. 3. Citalopram oxalate. 4. Gabapentin. 5. Naproxen. 6. Potassium chloride. 7. Tamsulosin. 8. Furosemide. 9. Atorvastatin. 10. Isosorbide mononitrate. 11. Home oxygen. 12. Amlodipine. 13. Clonidine. 14. Chlorthalidone. ALLERGIES: HE HAS NO KNOWN DRUG ALLERGIES. 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 There is no history of recent cigarette smoking, but he was a former smoker. He denies apparently history of ethanol abuse or illicit drug use. FAMILY HISTORY: Unobtainable due to the patient's intubated state. REVIEW OF SYSTEMS: Unobtainable due to the patient's intubated state. PAST MEDICAL AND SURGICAL HISTORY: Obtained from the patient's chart. NEUROLOGICAL EXAMINATION VITAL SIGNS: His temperature is 99.3, HIS heart rate is 77, his blood pressure is 137/65, his respiratory rate is 21. GENERAL: He is intubated on a ventilator with spontaneous respirations. NEUROLOGIC: Mental status testing finds him to be lethargic, but easily arousable. He opens his eyes. He is not following commands. As stated, he is intubated on a ventilator with spontaneous respirations. Cranial nerve testing finds his pupils are equally round and reactive to light. Corneal reflexes were present. Gaze was conjugate. Gag was present. Best motor response finds him to move all 4 extremities spontaneously and to withdraw appropriately to noxious stimuli. Deep tendon reflexes were diminished throughout. His head was normocephalic. Cervical spine evaluation revealed mild limited range of motion without obvious pain to palpation, but no sign of meningismus. IMPRESSION: The patient has been admitted with urosepsis and appears to have suffered most likely a left parieto-occipital hemorrhagic stroke, but a possible neoplastic process nor brain abscess can be completely ruled out at this point. This is in a patient who has a cardiac pacemaker in place as well as suffers with renal failure. He also suffers with prolonged encephalopathy RECOMMENDATIONS AND PLAN: At this point, from a neurosurgical perspective, a conservative approach is warranted with serial imaging. The patient should undergo a followup CT scan of the brain without contrast in 2 weeks. If his renal failure resolves, then he certainly can obtain a CT scan of the head with and without contrast; however, unless there are changes clinically at this point, an aggressive neurosurgical approach is probably not warranted. At this point, from a neurosurgical perspective, I will sign off the case. I will defer management to critical care physicians as well as the medical service and neurology. Please reconsult as needed. Thank you for allowing me to participate in the care of this patient. MD TEJA Bass/anastacio , 11:01 AM , 11:18 AM JILLIAN
--- NOTE | 2018-01-23 14:27 | P.PNID ---
Subjective Remarks: On vent Encephalopathy w/u included CT brain and revealed large 6.1 x 3.9 cm left occipital abnormality, as above. Differential considerations include mass versus evolving hemorrhagic infarct febrile 2 days ago no fever now WBC high u to 17.5 UOP improved GFR 21 Negative repeat BC Antibiotics: zosyn Allergies/Adverse Reactions: Allergies No Known Allergies Allergy (Verified 01/02/18 12:33) Objective Vital Signs 01/22/18 14:30 01/22/18 14:44 01/22/18 15:00 Temperature Pulse Rate 70 72 77 Respiratory Rate 33 H 34 H 34 H Blood Pressure 146/68 H 135/62 144/61 H Pulse Oximetry 100 99 99 01/22/18 15:16 01/22/18 15:30 01/22/18 16:00 Temperature 100.7 F H Pulse Rate 82 85 Respiratory Rate 24 21 23 Blood Pressure 138/59 L 143/64 H Pulse Oximetry 98 98 98 01/22/18 16:30 01/22/18 17:00 01/22/18 17:30 Temperature Pulse Rate 87 93 H 87 Respiratory Rate 23 23 22 Blood Pressure 131/63 134/62 132/63 Pulse Oximetry 98 98 98 01/22/18 18:00 01/22/18 18:30 01/22/18 19:00 Temperature Pulse Rate 82 79 81 Respiratory Rate 21 22 22 Blood Pressure 133/62 119/59 L 119/58 L Pulse Oximetry 99 98 99 01/22/18 19:30 01/22/18 19:37 01/22/18 20:00 Temperature 99.6 F Pulse Rate 81 83 Respiratory Rate 22 22 22 Blood Pressure 144/65 H 158/66 H Pulse Oximetry 98 98 98 01/22/18 20:30 01/22/18 21:00 01/22/18 21:32 Temperature Pulse Rate 78 81 98 H Respiratory Rate 20 21 27 H Blood Pressure 126/60 139/65 112/81 Pulse Oximetry 99 99 98 01/22/18 22:00 01/22/18 22:30 01/22/18 23:00 Temperature Pulse Rate 97 H 90 90 Respiratory Rate 22 22 23 Blood Pressure 138/71 152/62 H 136/61 Pulse Oximetry 98 98 98 01/22/18 23:06 01/22/18 23:30 01/22/18 23:46 Temperature Pulse Rate 83 85 Respiratory Rate 20 21 21 Blood Pressure 144/62 H 121/58 L Pulse Oximetry 99 99 99 01/23/18 00:00 01/23/18 00:30 01/23/18 01:00 Temperature 98.9 F Pulse Rate 82 81 77 Respiratory Rate 21 21 19 Blood Pressure 116/65 129/64 130/80 Pulse Oximetry 98 98 98 01/23/18 01:30 01/23/18 01:52 01/23/18 02:00 Temperature Pulse Rate 81 85 72 Respiratory Rate 19 20 19 Blood Pressure 148/65 H 143/69 H 137/60 Pulse Oximetry 99 99 99 01/23/18 02:30 01/23/18 03:00 01/23/18 03:09 Temperature Pulse Rate 75 80 Respiratory Rate 19 20 20 Blood Pressure 131/72 133/67 Pulse Oximetry 98 98 01/23/18 03:30 01/23/18 03:55 01/23/18 04:00 Temperature 98.6 F Pulse Rate 82 85 80 Respiratory Rate 21 21 22 Blood Pressure 145/101 H 141/63 H 147/64 H Pulse Oximetry 98 98 98 01/23/18 06:00 01/23/18 07:32 01/23/18 08:00 Temperature 99.3 F Pulse Rate 92 H 81 Respiratory Rate 23 21 Blood Pressure 137/65 Pulse Oximetry 100 98 01/23/18 10:00 01/23/18 11:34 01/23/18 12:00 Temperature Pulse Rate 77 87 Respiratory Rate 22 23 Blood Pressure 122/71 Pulse Oximetry 94 L 95 Intake & Output 01/22/18 01/23/18 01/23/18 18:59 06:59 18:59 Intake Total 548 / 548 701 / 701 Output Total 950 / 950 975 / 975 Balance -402 / -402 -274 / -274 Weight 84.5 kg Intake: IV 100 / 100 Maxipime Inj 2,000 MG In NS Inj 100 / 100 100 ML @ 200 mls/hr IV.SIG Q24H COUNT INCLUDES THE [facility] Rx#:[id number] Tube Feeding 548 / 548 501 / 501 Tube Irrigant 100 / 100 Output: Urine Amount (Catheter) 950 / 950 975 / 975 Indwelling Urethral Catheter 950 / 950 975 / 975 Other: Date of Last Bowel Movement 01/22/18 01/23/18 01/23/18 # Bowel Movements 1 2 01/20/18 05:51 Blood - Peripheral Aerobic Blood Culture - Preliminary No growth in 3 days 01/20/18 05:51 Blood - Peripheral Anaerobic Blood Culture - Preliminary No growth in 3 days 01/20/18 06:01 Blood - Peripheral Aerobic Blood Culture - Preliminary No growth in 3 days 01/20/18 06:01 Blood - Peripheral Anaerobic Blood Culture - Preliminary No growth in 3 days 01/16/18 08:20 Blood - Peripheral Aerobic Blood Culture - Final Pseudomonas aeruginosa 01/16/18 08:20 Blood - Peripheral Anaerobic Blood Culture - Final No growth in 5 days Lab - Hematology Results 01/22/18 01/23/18 02:46 03:21 WBC 12.4 H 17.0 H RBC 4.64 4.30 L Hgb 13.6 12.6 L Hct 39.8 37.6 L MCV 85.7 87.5 MCH 29.2 29.3 MCHC 34.1 33.4 RDW 15.3 15.3 Plt Count 188 248 D MPV 10.1 10.4 Prelim Diff (Auto) Slide review pending Slide review pending Neut % (Auto) 72.4 H 78.8 H Lymph % (Auto) 10.8 9.5 [place] % (Auto) 15.2 H 9.6 H Eos % (Auto) 1.4 1.7 Baso % (Auto) 0.2 0.4 Neut # (Auto) 9.0 H 13.4 H Lymph # (Auto) 1.3 1.6 [place] # (Auto) 1.9 H 1.6 H Eos # (Auto) 0.2 0.3 Baso # (Auto) 0.0 0.1 WBC Differential Manual diff final Manual diff final Seg Neuts % (Manual) 71 H 68 Band Neuts % (Manual) 3 12 H Lymphocytes % (Manual) 12 13 Monocytes % (Manual) 12 H 4 Eosinophils % (Manual) 1 Basophils % (Manual) 1 Myelocytes % (Man) 2 H 1 H Abs Neuts (Manual) 9.4 H 13.8 H Differential Comment . . Toxic Granulation 1+ H 1+ H Dohle Bodies Present H Platelet Estimate Normal Normal Platelet Morphology Normal Enlarged H Lab - Chemistry Results 01/21/18 01/21/18 01/21/18 16:25 16:25 16:25 Sodium Potassium Chloride Carbon Dioxide Anion Gap BUN Creatinine Estimated GFR Random Glucose Calcium Phosphorus Magnesium Ammonia 19 Vitamin B12 1380 H TSH 6.060 H Thyroxine (T4) 5.0 Cortisol 45.9 01/21/18 01/22/18 01/23/18 16:25 02:46 03:21 Sodium 152 H 155 H Potassium 3.4 L 3.4 L 3.2 L Chloride 112 H 116 H Carbon Dioxide 31.5 29.5 Anion Gap 9 10 BUN 105 H 107 H Creatinine 3.16 H 2.90 H Estimated GFR 19 L 21 L Random Glucose 158 H 175 H Calcium 8.0 L 7.9 L Phosphorus 2.7 3.1 Magnesium 2.7 H 3.2 H Ammonia Vitamin B12 TSH Thyroxine (T4) Cortisol Imaging: ITS Impressions Abdomen/Pelvis CT 01/16/18 04:21 CONCLUSION: 1. Bilateral ureteral stents are in place and there is mild distention of the collecting systems bilaterally. Both kidneys enhance heterogeneously. 2. 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 01/22/18 05:00 CONCLUSION: 1. No significant interval change. 2. Stable large 6.1 x 3.9 cm left occipital abnormality, as above. Differential considerations include mass versus evolving hemorrhagic infarct. Consider contrast enhanced MRI examination for further characterization. . Carotid Doppler Study 01/23/18 00:00 CONCLUSION: 1. Right Internal Carotid Artery: Findings indicate <50% stenosis. 2. Left Internal Carotid Artery: Findings indicate 50-69% stenosis. This is likely in the higher aspect of this range. Chest X-Ray 01/23/18 04:00 CONCLUSION: Stable appearance of the chest. Physical Exam: GENERAL: Unresponsive Off sedation SKIN: Warm and dry. no rash HEAD: Atraumatic. Normocephalic. EYES: Pupils equal and round. No scleral icterus. No injection or drainage. ENT: No nasal bleeding or discharge. Mucous membranes pink and moist. NECK: Trachea midline. No JVD. CARDIOVASCULAR: Regular rate and rhythm. RESPIRATORY: No accessory muscle use. Clear to auscultation. Breath sounds equal bilaterally. GASTROINTESTINAL: Abdomen soft, non-tender, nondistended. Hepatic and splenic margins not palpable. MUSCULOSKELETAL: Extremities without clubbing, cyanosis, or edema. No obvious deformities. : jenkins inplace with good amount of clear urine NEUROLOGICAL: comatose PSYCHIATRIC: unable to assess Assessment and Plan - Plan PSAE sepsis quiroga S Septic shock with multi organ failure UTI, complicated , following urological procedure Acute VDRF ARF - GFR worse , no longer oliguric Severe encephalopathy , likely metabolic CT with large 6.1 x 3.9 cm left occipital abnormality, as above either evolving hemorrhagic infarct or abscess not a candidate for MR (pacer) or contrasted CT (GFR 21) dw radiologist : no rad tests to further differentia; f/u CT on Friday recommeded eval'd by NS- serialimages recommended cont current abx dw radiologist dw @ b/s in details
--- NOTE | 2018-01-23 17:30 | P.PNPAL ---
Reason for Visit Reason for visit: a. To assist with evaluation and management of symptoms including: Encephalopathy, pain, dyspnea b. To assist medical decision maker(s) with: better understanding of current medical conditions; weighing benefits/burdens of medical treatment options; making medical treatment decisions. Subjective Subjective/Interval History: Patient seen and examined in ICU. Family at bedside. Discussed with Dr. Costello. Patient remains on mech vent. Patient does not open eyes or follow commands. Patient withdraws to pain on right LE. Neurosurgery, Dr. Doshi saw patient today and spoke with family with recommendations to continue conservative approach. He recommends CT head in 2 weeks, unless there are changes clinically. No neurosurgical intervention not warranted. Neurosurgery has signed off. Vital signs stable. Tolerating intermittent CPAP trials. Blood cultures no growth at 3 days. Chest x-ray stable. Carotid ultrasound: right carotid artery < 50%, left carotid artery 50-69% stenosis. EEG consistent diffuse encephalopathy. Family/Friend Interactions: Spoke with family at bedside. Also present Mai Lakhani LCSW also present. Medical update provided. Questions answered. Reviewed my conversation with Dr. Costello that we should continue to monitor patient clinical status over the weekend and reevaluate on Friday for further prognostication. We talked a lot about encephalopathy and potential causes likely multifactorial, medication effect, stroke, renal insufficiency, critical illness etc. Family is very appreciative of time spent. Objective Vital Signs: Vital Signs 01/22/18 17:30 01/22/18 18:00 01/22/18 18:30 Temperature Pulse Rate 87 82 79 Respiratory Rate 22 21 22 Blood Pressure 132/63 133/62 119/59 L Pulse Oximetry 98 99 98 01/22/18 19:00 01/22/18 19:30 01/22/18 19:37 Temperature Pulse Rate 81 81 Respiratory Rate 22 22 22 Blood Pressure 119/58 L 144/65 H Pulse Oximetry 99 98 98 01/22/18 20:00 01/22/18 20:30 01/22/18 21:00 Temperature 99.6 F Pulse Rate 83 78 81 Respiratory Rate 22 20 21 Blood Pressure 158/66 H 126/60 139/65 Pulse Oximetry 98 99 99 01/22/18 21:32 01/22/18 22:00 01/22/18 22:30 Temperature Pulse Rate 98 H 97 H 90 Respiratory Rate 27 H 22 22 Blood Pressure 112/81 138/71 152/62 H Pulse Oximetry 98 98 98 01/22/18 23:00 01/22/18 23:06 01/22/18 23:30 Temperature Pulse Rate 90 83 Respiratory Rate 23 20 21 Blood Pressure 136/61 144/62 H Pulse Oximetry 98 99 99 01/22/18 23:46 01/23/18 00:00 01/23/18 00:30 Temperature 98.9 F Pulse Rate 85 82 81 Respiratory Rate 21 21 21 Blood Pressure 121/58 L 116/65 129/64 Pulse Oximetry 99 98 98 01/23/18 01:00 01/23/18 01:30 01/23/18 01:52 Temperature Pulse Rate 77 81 85 Respiratory Rate 19 19 20 Blood Pressure 130/80 148/65 H 143/69 H Pulse Oximetry 98 99 99 01/23/18 02:00 01/23/18 02:30 01/23/18 03:00 Temperature Pulse Rate 72 75 80 Respiratory Rate 19 19 20 Blood Pressure 137/60 131/72 133/67 Pulse Oximetry 99 98 98 01/23/18 03:09 01/23/18 03:30 01/23/18 03:55 Temperature Pulse Rate 82 85 Respiratory Rate 20 21 21 Blood Pressure 145/101 H 141/63 H Pulse Oximetry 98 98 01/23/18 04:00 01/23/18 06:00 01/23/18 07:32 Temperature 98.6 F Pulse Rate 80 92 H Respiratory Rate 22 23 Blood Pressure 147/64 H Pulse Oximetry 98 100 01/23/18 08:00 01/23/18 10:00 01/23/18 11:34 Temperature 99.3 F Pulse Rate 81 77 Respiratory Rate 21 22 Blood Pressure 137/65 Pulse Oximetry 98 94 L 01/23/18 12:00 01/23/18 14:00 01/23/18 15:16 Temperature Pulse Rate 87 75 Respiratory Rate 23 18 Blood Pressure 122/71 Pulse Oximetry 95 97 01/23/18 16:00 Temperature Pulse Rate 68 Respiratory Rate 21 Blood Pressure 129/60 Pulse Oximetry 97 Intake & Output 01/22/18 01/23/18 01/23/18 18:59 06:59 18:59 Intake Total 548 / 548 701 / 701 Output Total 950 / 950 975 / 975 Balance -402 / -402 -274 / -274 Weight 84.5 kg Intake: IV 100 / 100 Maxipime Inj 2,000 MG In NS Inj 100 / 100 100 ML @ 200 mls/hr IV.SIG Q24H [facility] Rx#:[id number] Tube Feeding 548 / 548 501 / 501 Tube Irrigant 100 / 100 Output: Urine Amount (Catheter) 950 / 950 975 / 975 Indwelling Urethral Catheter 950 / 950 975 / 975 Other: Date of Last Bowel Movement 01/22/18 01/23/18 01/23/18 # Bowel Movements 1 2 Physical Exam: CONSTITUTIONAL/GENERAL: This is an adequately nourished patient, no apparent distress, minimally responsive on mechanical vent. TUBES/LINES/DRAINS: Peripheral IV upper extremity, central line to IJ, Prince catheter, ET tube, OG tube, soft restraints bilaterally SKIN: No jaundice, rashes, or lesions. No wounds seen anteriorly. Skin warm and dry EYES: Eyes closed. CARDIOVASCULAR: Irregular heart rate. A. fib viewed on bedside monitor. No murmur. pedal pulses are faint. bilateral feet warm RESPIRATORY/CHEST: Symmetric, unlabored respirations via ET tube mechanical vent. Clear to auscultation. Breath sounds equal bilaterally. GASTROINTESTINAL: Abdomen soft, nondistended. Bowel sounds present. GENITOURINARY: Without palpable bladder distension. Prince catheter in place. Clear yellow urine MUSCULOSKELETAL: Extremities without clubbing, cyanosis, or edema. No mottling or clubbing. NEUROLOGICAL: Does not open eyes to voice, pain or exam. Does not follow any commands. Grimaces to pain stimuli on right, withdraws to pain RLE. No response to pain stimuli left side. PSYCHIATRIC: no obvious anxiety Diagnostic Tests Laboratory: Laboratory Results - last 72 hr 01/21/18 01/21/18 01/21/18 05:00 05:00 05:00 WBC 9.9 RBC 4.44 L Hgb 13.1 Hct 39.0 MCV 87.9 MCH 29.5 MCHC 33.6 RDW 16.0 Plt Count 159 MPV 9.4 Prelim Diff (Auto) Slide review pending Neut % (Auto) 67.9 Lymph % (Auto) 13.3 [place] % (Auto) 17.6 H Eos % (Auto) 0.8 Baso % (Auto) 0.4 Neut # (Auto) 6.7 Lymph # (Auto) 1.3 [place] # (Auto) 1.7 H Eos # (Auto) 0.1 Baso # (Auto) 0.0 WBC Differential Manual diff final Seg Neuts % (Manual) 65 Band Neuts % (Manual) 3 Lymphocytes % (Manual) 14 Monocytes % (Manual) 15 H Eosinophils % (Manual) 1 Basophils % (Manual) Metamyelocytes % (Man) 1 Myelocytes % (Man) 1 H Abs Neuts (Manual) 6.9 Differential Comment . Toxic Granulation Dohle Bodies Platelet Estimate Normal Platelet Morphology Normal PT INR APTT 44.4 H Sodium 147 H Potassium 2.9 L* Chloride 107 Carbon Dioxide 28.7 Anion Gap 11 BUN 101 H Creatinine 3.84 H Estimated GFR 15 L Random Glucose 156 H Calcium 8.1 L Phosphorus 3.4 Magnesium 2.5 Ammonia Vitamin B12 TSH Thyroxine (T4) Cortisol 01/21/18 01/21/18 01/21/18 05:00 16:25 16:25 WBC RBC Hgb Hct MCV MCH MCHC RDW Plt Count MPV Prelim Diff (Auto) Neut % (Auto) Lymph % (Auto) [place] % (Auto) Eos % (Auto) Baso % (Auto) Neut # (Auto) Lymph # (Auto) [place] # (Auto) Eos # (Auto) Baso # (Auto) WBC Differential Seg Neuts % (Manual) Band Neuts % (Manual) Lymphocytes % (Manual) Monocytes % (Manual) Eosinophils % (Manual) Basophils % (Manual) Metamyelocytes % (Man) Myelocytes % (Man) Abs Neuts (Manual) Differential Comment Toxic Granulation Dohle Bodies Platelet Estimate Platelet Morphology PT INR APTT Sodium Potassium Chloride Carbon Dioxide Anion Gap BUN Creatinine Estimated GFR Random Glucose Calcium Phosphorus Magnesium Ammonia 18 19 Vitamin B12 TSH Thyroxine (T4) Cortisol 45.9 01/21/18 01/21/18 01/22/18 16:25 16:25 02:46 WBC RBC Hgb Hct MCV MCH MCHC RDW Plt Count MPV Prelim Diff (Auto) Neut % (Auto) Lymph % (Auto) [place] % (Auto) Eos % (Auto) Baso % (Auto) Neut # (Auto) Lymph # (Auto) [place] # (Auto) Eos # (Auto) Baso # (Auto) WBC Differential Seg Neuts % (Manual) Band Neuts % (Manual) Lymphocytes % (Manual) Monocytes % (Manual) Eosinophils % (Manual) Basophils % (Manual) Metamyelocytes % (Man) Myelocytes % (Man) Abs Neuts (Manual) Differential Comment Toxic Granulation Dohle Bodies Platelet Estimate Platelet Morphology PT INR APTT Sodium 152 H Potassium 3.4 L 3.4 L Chloride 112 H Carbon Dioxide 31.5 Anion Gap 9 BUN 105 H Creatinine 3.16 H Estimated GFR 19 L Random Glucose 158 H Calcium 8.0 L Phosphorus 2.7 Magnesium 2.7 H Ammonia Vitamin B12 1380 H TSH 6.060 H Thyroxine (T4) 5.0 Cortisol 01/22/18 01/22/18 01/23/18 02:46 13:45 03:21 WBC 12.4 H 17.0 H RBC 4.64 4.30 L Hgb 13.6 12.6 L Hct 39.8 37.6 L MCV 85.7 87.5 MCH 29.2 29.3 MCHC 34.1 33.4 RDW 15.3 15.3 Plt Count 188 248 D MPV 10.1 10.4 Prelim Diff (Auto) Slide review pending Slide review pending Neut % (Auto) 72.4 H 78.8 H Lymph % (Auto) 10.8 9.5 [place] % (Auto) 15.2 H 9.6 H Eos % (Auto) 1.4 1.7 Baso % (Auto) 0.2 0.4 Neut # (Auto) 9.0 H 13.4 H Lymph # (Auto) 1.3 1.6 [place] # (Auto) 1.9 H 1.6 H Eos # (Auto) 0.2 0.3 Baso # (Auto) 0.0 0.1 WBC Differential Manual diff final Manual diff final Seg Neuts % (Manual) 71 H 68 Band Neuts % (Manual) 3 12 H Lymphocytes % (Manual) 12 13 Monocytes % (Manual) 12 H 4 Eosinophils % (Manual) 1 Basophils % (Manual) 1 Metamyelocytes % (Man) Myelocytes % (Man) 2 H 1 H Abs Neuts (Manual) 9.4 H 13.8 H Differential Comment . . Toxic Granulation 1+ H 1+ H Dohle Bodies Present H Platelet Estimate Normal Normal Platelet Morphology Normal Enlarged H PT 10.0 INR 1.0 APTT Sodium Potassium Chloride Carbon Dioxide Anion Gap BUN Creatinine Estimated GFR Random Glucose Calcium Phosphorus Magnesium Ammonia Vitamin B12 TSH Thyroxine (T4) Cortisol 01/23/18 01/23/18 03:21 03:21 WBC RBC Hgb Hct MCV MCH MCHC RDW Plt Count MPV Prelim Diff (Auto) Neut % (Auto) Lymph % (Auto) [place] % (Auto) Eos % (Auto) Baso % (Auto) Neut # (Auto) Lymph # (Auto) [place] # (Auto) Eos # (Auto) Baso # (Auto) WBC Differential Seg Neuts % (Manual) Band Neuts % (Manual) Lymphocytes % (Manual) Monocytes % (Manual) Eosinophils % (Manual) Basophils % (Manual) Metamyelocytes % (Man) Myelocytes % (Man) Abs Neuts (Manual) Differential Comment Toxic Granulation Dohle Bodies Platelet Estimate Platelet Morphology PT 10.3 INR 1.0 APTT Sodium 155 H Potassium 3.2 L Chloride 116 H Carbon Dioxide 29.5 Anion Gap 10 BUN 107 H Creatinine 2.90 H Estimated GFR 21 L Random Glucose 175 H Calcium 7.9 L Phosphorus 3.1 Magnesium 3.2 H Ammonia Vitamin B12 TSH Thyroxine (T4) Cortisol Result Diagrams: 01/23/18 03:21 01/23/18 03:21 Microbiology: Microbiology 01/20/18 05:51 Aerobic Blood Culture - Preliminary Blood - Peripheral No growth in 3 days Anaerobic Blood Culture - Preliminary No growth in 3 days 01/20/18 06:01 Aerobic Blood Culture - Preliminary Blood - Peripheral No growth in 3 days Anaerobic Blood Culture - Preliminary No growth in 3 days 01/16/18 08:20 Aerobic Blood Culture - Final Blood - Peripheral Pseudomonas aeruginosa Anaerobic Blood Culture - Final No growth in 5 days Imaging: Abdomen/Pelvis CT 01/16/18 04:21 CONCLUSION: 1. Bilateral ureteral stents are in place and there is mild distention of the collecting systems bilaterally. Both kidneys enhance heterogeneously. 2. 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 01/22/18 05:00 CONCLUSION: 1. No significant interval change. 2. Stable large 6.1 x 3.9 cm left occipital abnormality, as above. Differential considerations include mass versus evolving hemorrhagic infarct. Consider contrast enhanced MRI examination for further characterization. . Carotid Doppler Study 01/23/18 00:00 CONCLUSION: 1. Right Internal Carotid Artery: Findings indicate <50% stenosis. 2. Left Internal Carotid Artery: Findings indicate 50-69% stenosis. This is likely in the higher aspect of this range. Chest X-Ray 01/23/18 04:00 CONCLUSION: Stable appearance of the chest. Procedures: 01/16 central line right IJ 01/16 intubated Assessment and Plan - Disease Oriented Problem List (1) Bladder tumor (2) Meatal stenosis (3) History of bladder cancer (4) Acute UTI (5) Acute kidney injury (6) Sepsis (7) Respiratory failure - Symptom Scale (1) Dyspnea 0-10 Scale: Unable to quantify (2) Encephalopathy 0-10 Scale: Unable to quantify (3) Pain 0-10 Scale: Unable to quantify Pertinent Non-Medical Issues: Psychosocial: Born and raised in [place]. 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 Supported by , children, grandchildren as well as close friends. 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 Not clear if or when he will regain ability. Per [place] statutes his would be appropriate legal proxy. Ethical issues impacting care: No ethical issues identified. Important Contacts: Lanie Cheung [phone], cell [phone] Prognosis: This patient was initially admitted with generalized symptoms of nausea, weakness but overall not feeling well. During hospital course has had worsening sepsis, multiorgan failure. He has recent diagnoses of bladder cancer. Given advanced age, Multiorgan issues, high risk for ongoing complications and setbacks. Code Status: Full Code Plan: Legal decision maker:Pt critically ill on mech vent, unable to participate in decision-making. Not clear if or when he will regain ability. Per [place] statutes his would be appropriate legal proxy. Goals: Spoke with family at bedside. Also present Mai Lakhani LCSW also present. Medical update provided. Questions answered. Reviewed my conversation with Dr. Costello that we should continue to monitor patient clinical status over the weekend and reevaluate on Friday for further prognostication. We talked a lot about encephalopathy and potential causes likely multifactorial, medication effect, stroke, renal insufficiency, critical illness etc. Family is very appreciative of time spent. Palliative care will meet with family again on FridayJanuary 26. CODE STATUS:full code SYMPTOMS: --Dyspneaintubated, currently breathing comfortably on mechanical vent. tolerating CPAP today. Encephalopathy may limit weaning, may affect airway maintenance upon medical extubation if able to medically extubate. History of COPD requiring CPAP of though had not used recently due to ill fitting. -- dysphagia- potential r/t CVA --Encephalopathy-multifactorial, metabolic. Multiorgan failure. Has not been on sedation for 4 days. Not arousing, not following commands-- today some improvement in mentation. s/p brain + CVA, addit diagnostics pending. High risk for future CVA. --Pain-currently with no signs or symptoms of pain, potential sources would include bedbound status, recent invasive procedures, including cystoscopy. No indications for pain medication at this time. We will continue to evaluate. Palliative care will continue to follow during hospital course as condition evolves, to assist patient/decision-maker with understanding of medical conditions, weighing benefits/burdens of treatment options, for clarification of goals of treatment. Additionally will assist with any symptoms of palliative concern Attestation Attestation: To help prompt me to consider important information that might be impacting today's encounter and assessment, information from prior notes written by myself or my colleagues may have been "brought forward" into today's note. My signature on this note, however, is an attestation that I personally performed the exam, history, and/or decision-making noted today, and, unless otherwise indicated, the interactions with patient, family, and staff as well as the review of records all occurred today. I also attest that the listed assessment and stated plan reflect my best clinical judgment today based on the combination of historical information, prior notes, and today's exam/ interactions. When time spent is documented, it refers only to time spent today by the signer, or if indicated, combined time spent today by collaborating physician/nurse practitioner.
--- NOTE | 2018-01-23 18:39 | P.PNNP ---
Subjective Interval history: Patient remain clinically same, on the vent. and remain unresponsive. Physical Exam Vital signs: Vital Signs 01/22/18 19:00 01/22/18 19:30 01/22/18 19:37 Temperature Pulse Rate 81 81 Respiratory Rate 22 22 22 Blood Pressure 119/58 L 144/65 H Pulse Oximetry 99 98 98 01/22/18 20:00 18 20:30 01/22/18 21:00 Temperature 99.6 F Pulse Rate 83 78 81 Respiratory Rate 22 20 21 Blood Pressure 158/66 H 126/60 139/65 Pulse Oximetry 98 99 99 01/22/18 21:32 01/22/18 22:00 01/22/18 22:30 Temperature Pulse Rate 98 H 97 H 90 Respiratory Rate 27 H 22 22 Blood Pressure 112/81 138/71 152/62 H Pulse Oximetry 98 98 98 01/22/18 23:00 01/22/18 23:06 01/22/18 23:30 Temperature Pulse Rate 90 83 Respiratory Rate 23 20 21 Blood Pressure 136/61 144/62 H Pulse Oximetry 98 99 99 01/22/18 23:46 01/23/18 00:00 01/23/18 00:30 Temperature 98.9 F Pulse Rate 85 82 81 Respiratory Rate 21 21 21 Blood Pressure 121/58 L 116/65 129/64 Pulse Oximetry 99 98 98 01/23/18 01:00 01/23/18 01:30 01/23/18 01:52 Temperature Pulse Rate 77 81 85 Respiratory Rate 19 19 20 Blood Pressure 130/80 148/65 H 143/69 H Pulse Oximetry 98 99 99 01/23/18 02:00 01/23/18 02:30 01/23/18 03:00 Temperature Pulse Rate 72 75 80 Respiratory Rate 19 19 20 Blood Pressure 137/60 131/72 133/67 Pulse Oximetry 99 98 98 01/23/18 03:09 01/23/18 03:30 01/23/18 03:55 Temperature Pulse Rate 82 85 Respiratory Rate 20 21 21 Blood Pressure 145/101 H 141/63 H Pulse Oximetry 98 98 01/23/18 04:00 01/23/18 06:00 01/23/18 07:32 Temperature 98.6 F Pulse Rate 80 92 H Respiratory Rate 22 23 Blood Pressure 147/64 H Pulse Oximetry 98 100 01/23/18 08:00 01/23/18 10:00 01/23/18 11:34 Temperature 99.3 F Pulse Rate 81 77 Respiratory Rate 21 22 Blood Pressure 137/65 Pulse Oximetry 98 94 L 01/23/18 12:00 01/23/18 14:00 01/23/18 15:16 Temperature Pulse Rate 87 75 Respiratory Rate 23 18 Blood Pressure 122/71 Pulse Oximetry 95 97 01/23/18 16:00 Temperature Pulse Rate 68 Respiratory Rate 21 Blood Pressure 129/60 Pulse Oximetry 97 Intake & Output 01/22/18 01/23/18 01/23/18 18:59 06:59 18:59 Intake Total 548 / 548 701 / 701 Output Total 950 / 950 975 / 975 Balance -402 / -402 -274 / -274 Weight 84.5 kg Intake: IV 100 / 100 Maxipime Inj 2,000 MG In NS Inj 100 / 100 100 ML @ 200 mls/hr IV.SIG Q24H [facility] Rx#:[id number] Tube Feeding 548 / 548 501 / 501 Tube Irrigant 100 / 100 Output: Urine Amount (Catheter) 950 / 950 975 / 975 Indwelling Urethral Catheter 950 / 950 975 / 975 Other: Date of Last Bowel Movement 01/22/18 01/23/18 01/23/18 # Bowel Movements 1 2 Narrative: Patient remain on the vent. and remain unresponsive. HEENT: Pupil mid constricted, non icteric , conjuntive pale. Neck: Supple, JVD not elevated. Lungs: Bilateral decrease air entry at bases, occ. wheezing. Abd. distended, non tender, BS positive. Ext: Mild leg edema. - Urinary Catheter Management Indwelling Urethral Catheter Cath placed during this visit: yes Reason for continuing: Chronic Urinary Retention Insertion date: 01/16/18 Insertion time: 17:30 Assessment and Plan - Assessment (1) Acute kidney injury Code(s): N17.9 - Acute kidney failure, unspecified Status: Acute Plan: Patient with Acute kidney injury and Hyperkalemia, Urine out put is low. Most likely has ATN due to hypotension, now BP is better, K is low, on replacement. Creatinine continue to improve, Na. is increasing , now 155. Started on free water via GT. K is low and replaced. non oliguric, urine out put is good after the Lasix was stopped. give Lasix PRN if needed. Follow the urine out put and BMP. Avoid Nephrotoxins. No improvement in Encephalopathy. Neurology following. Also seen by Palliative care. (2) Sepsis Code(s): A41.9 - Sepsis, unspecified organism Status: Acute Plan: Blood cultures positive for gram negative rods, sensitivity pending. On Zosyn. (3) Acute UTI Code(s): N39.0 - Urinary tract infection, site not specified Status: Acute Plan: Has received Rocephin. Culture is pending. (4) Respiratory failure Code(s): J96.90 - Respiratory failure, unspecified, unspecified whether with hypoxia or hypercapnia Status: Acute Plan: Patient is intubated on very mild sedation.
[2018-01-23] MEDS: Acetaminophen 325 MG Tablet PO PRN (21:01)
[2018-01-24] MEDS: Oral Hygiene Kit OROPHARYNG SCH ×4 (00:02→16:02)
[2018-01-24] MEDS ORDERED: Labetalol HCl Inj 100 MG/20 ML Vial ONE (01:39)
[2018-01-24] MEDS: Labetalol HCl Inj 20 MG/4 ML Vial IV.PUSH PRN (01:45)
[2018-01-24 05:12] LABS: Baso # (Auto) 0.1 th/mm3 (0.0-0.2); Baso % (Auto) 0.3 % (0.0-2.0); Eos # (Auto) 0.6 th/mm3 (0.0-0.4); Eos % (Auto) 3.2 % (0.0-4.0); Hematocrit 38.7 % (39.0-51.0); Hemoglobin 12.8 gm/dL (13.0-17.0); Lymph # (Auto) 1.8 th/mm3 (1.0-4.8); Lymph % (Auto) 9.4 % (9.0-44.0); Mean Corpuscular HGB Conc 33.2 % (32.0-36.0); Mean Corpuscular Hemoglobin 29.3 pg (27.0-34.0); Mean Corpuscular Volume 88.2 fL (80.0-100.0); Mono # (Auto) 1.4 th/mm3 (0.0-0.9); Mono % (Auto) 7.4 % (0.0-8.0); Neut # (Auto) 15.6 th/mm3 (1.8-7.7); Neut % (Auto) 79.7 % (16.0-70.0); Platelet Count 270 th/mm3 (150-450); Red Blood Count 4.39 mil/mm3 (4.50-5.90); Red Cell Distribution Width 15.8 % (11.6-17.2); White Blood Count 19.5 th/mm3 (4.0-11.0)
[2018-01-24 05:26] LABS: Calcium 8.2 mg/dL (8.5-10.1); Carbon Dioxide 27.8 meq/L (21.0-32.0); Magnesium 3.5 mg/dL (1.5-2.5); Phosphorus 3.5 mg/dL (2.5-4.9)
[2018-01-24 05:35] LABS: Potassium 2.9 meq/L (3.5-5.1)
[2018-01-24] MEDS: hydrALAZINE HCl Inj 20 MG/ML Vial IV.PUSH PRN ×3 (06:06→21:50)
[2018-01-24] MEDS ORDERED: Potassium Chloride 25 MEQ Effervescent Tablet NG/OG ONE (08:00)
[2018-01-24] MEDS: Sodium Chloride 23.4% Inj 38.5 MEQ in Water for Inj, Sterile 1,000 ML IV.CONT SCH ×2 (08:05→17:39)
[2018-01-24] MEDS: Senna/Docusate Sodium 8.6/50 MG Tablet PO SCH ×2 (08:06→21:50)
[2018-01-24] MEDS: Carvedilol 6.25 MG Tablet PO SCH ×2 (08:07→21:49)
[2018-01-24] MEDS: Famotidine PF Inj 20 MG/2 ML Vial IV.PUSH SCH ×2 (08:07→21:49)
[2018-01-24] MEDS: dilTIAZem 30 MG Tablet PO SCH ×4 (08:07→21:49)
[2018-01-24] MEDS: Chlorhexidine 0.12% Oral Kit 15 ML UDC OROPHARYNG SCH ×2 (08:37→21:49)
[2018-01-24 09:29] LABS: Eosinophils 4 % (0-4); Lymphocytes 10 % (9-44); Monocytes 4 % (0-8); Myelocytes 1 % (0-0)
[2018-01-24 09:30] LABS: Ovalocytes 1+; Platelet Estimate Normal (Normal); Toxic Granulation 1+
--- NOTE | 2018-01-24 10:26 | P.PNCC ---
Subjective Subjective Remarks/Hospital Course: Mr. Cheung is a 82-year-old male with bladder cancer, thoracic and abdominal aortic aneurysm, Bronchiectasis, Restrictive lung disease, COPD, on 2L of supplemental O2, history of congestive heart failure, Hyperlipidemia, HTN who recently underwent recent cystoscopy with meatal dilation about 4 days ago. According to Dr. 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 He underwent laser ablation of the tumor masses with biopsy along with laser lithotripsy and extraction of the right ureteral calculus. Bilateral stents were placed. Patient came to the ER today with symptoms of UTI and sepsis, altered mental status. UA showed evidence of UTI. Patient was started on Rocephin and admitted to hospitalist service. Over the course of the day patient clinically started deteriorating hypotensive with worsening encephalopathy hardly responsive. Patient was transferred to the ICU and critical care medicine was consulted. I evaluated the patient in the ICU he is very lethargic encephalopathy. Currently received 2 L normal saline bolus and had been started on Levophed currently at 12 mcg/min. Despite this patient is hypotensive. Initial ABG showed a pH of 7.25 PCO2 50 base excess -5 now slightly worse with pH of 7.23 PCO2 52. Due to severe sepsis and metabolic acidosis patient is not a candidate for BiPAP. WBC count of on admission was 14 with left shift now has worsened to 20.4. Initial lactic acid was 2,2 repeat lactic acid is pending at this time. Patient previously was sent home with indwelling Prince by Dr. Cabrera , he removed the Prince today. Patient has been oliguric and in renal failure. Will replace the Prince for strict hourly intake output SUBJ 01/17: Remains critical intubated sedated. Blood cultures all bottles growing gram-negative rods. Currently on Zosyn. Creatinine has worsened to 3, potassium is 6.2. Urine output has been marginal 10-15 mL/h. CVP is only 9. Fluid challenge with 1 L normal saline bolus and maintenance fluid 100 mL/h. Nephrology consulted, CMP at noon. Treatment for hyperkalemia ordered with IV insulin followed by dextrose, calcium, bicarb, Kayexalate and breathing treatments. 01/18: Remains critical, remains in multiorgan failure. Started on Lasix by nephrology yesterday urine output approximately 1 L, worsening BUN/creatinine 66 /3.74. Will discuss with nephrology regarding dialysis though there is no acute indication. WBC count slightly improved to 15.2. Patient developed A. fib with RVR yesterday, started on Cardizem infusion after bolus. Will DC Lovenox for DVT prophylaxis and start on IV heparin for persistent A. fib. 01/19: Patient continues on heparin and Cardizem infusion. WBC count slightly improved. Urine output increased 2 L in 12 hours last evening. Patient continues in A. fib but rate controlled will transition to p.o.. 01/20: T-max 101.0 Cardizem has been transition to p.o. 30 mg 4 times daily. The patient continues to fail CPAP trials. Urine output continues to increase. Continue continued improvement in WBC count. No change in neurological status , despite being off sedation greater than 48 hours continue to monitor. 01/21: Late entry note patient seen approximately at 11 AM .afebrile. Patient remains uncertain responsive despite> than 48 hours of discontinuation of Versed however patient noted to have an elevated creatinine so significantly less clearance of the prolonged Versed infusion stat labs being obtained ammonia level cortisol level. Neurology also has been consulted. Stat CT of the head obtained revealed abnormality in the left parietal occipital region, heparin placed on hold. Stat MRI is pending. Patient tolerating CPAP trials today greater than 2-1/2 hours thus far. 01/22: Neuro assessment performed earlier this a.m. patient has spontaneous eye opening moving head responding to pain , noted visual tracking. Repeat CT head obtained this a.m. per neurology recommendations, noted unchanged. Inability to obtain MRI secondary to pacemaker. EEG results are pending .maintain systolic blood pressure less than 140 PRN antihypertensives initiated. Carvedilol resumed. Echo pending. Extensive discussion with family at bedside patient's and children medical status update given all questions answered. 01/23: Afebrile .No acute change overnight. Systolic blood pressure being maintained less than 140. Carotid ultrasound is pending. Patient noted to be hyponatremic free water flushes added to medication regimen. CPAP trials continued. 01/24: Remains intubated off all sedation remains severely encephalopathic. 128/ 3.2 today. Nonoliguric. Sodium 159. Started on quarter normal saline at 120 femoral per hour. Potassium getting replaced. Discussed worsening renal function with Dr. Crandall nephrology. Neurosurgery has seen for left hemorrhagic infarct continue conservative management Objective Vital Signs / I&O: Vital Signs 01/23/18 11:34 01/23/18 12:00 01/23/18 14:00 Temperature Pulse Rate 87 75 Respiratory Rate 22 23 Blood Pressure 122/71 Pulse Oximetry 94 L 95 01/23/18 15:16 01/23/18 16:00 01/23/18 18:00 Temperature Pulse Rate 68 70 Respiratory Rate 18 21 Blood Pressure 129/60 Pulse Oximetry 97 97 01/23/18 19:00 01/23/18 19:15 01/23/18 19:30 Temperature 100.8 F H Pulse Rate 71 73 Respiratory Rate 21 20 26 H Blood Pressure 146/65 H 162/72 H Pulse Oximetry 97 97 97 01/23/18 20:00 01/23/18 20:30 01/23/18 21:00 Temperature Pulse Rate 72 71 72 Respiratory Rate 21 22 22 Blood Pressure 147/66 H 145/66 H 145/67 H Pulse Oximetry 97 97 97 01/23/18 21:30 01/23/18 22:00 01/23/18 22:30 Temperature Pulse Rate 71 75 71 Respiratory Rate 26 H 25 H 22 Blood Pressure 132/62 158/70 H 135/60 Pulse Oximetry 97 96 99 01/23/18 23:00 01/23/18 23:30 01/24/18 00:00 Temperature 100 F H Pulse Rate 70 70 68 Respiratory Rate 24 22 21 Blood Pressure 125/59 L 127/60 119/56 L Pulse Oximetry 99 99 98 01/24/18 00:30 01/24/18 01:00 01/24/18 01:20 Temperature Pulse Rate 69 71 Respiratory Rate 23 20 19 Blood Pressure 138/64 141/65 H Pulse Oximetry 98 99 98 01/24/18 01:30 01/24/18 02:00 01/24/18 02:30 Temperature Pulse Rate 70 67 67 Respiratory Rate 21 20 20 Blood Pressure 149/66 H 140/63 136/63 Pulse Oximetry 98 97 97 01/24/18 03:00 01/24/18 03:30 01/24/18 04:00 Temperature 99.9 F H Pulse Rate 68 69 68 Respiratory Rate 21 22 22 Blood Pressure 142/65 H 145/67 H 141/63 H Pulse Oximetry 98 98 97 01/24/18 04:15 01/24/18 04:30 01/24/18 06:00 Temperature Pulse Rate 70 74 Respiratory Rate 20 21 Blood Pressure 142/65 H Pulse Oximetry 98 97 01/24/18 07:00 01/24/18 07:30 01/24/18 07:36 Temperature Pulse Rate 73 74 Respiratory Rate 20 19 19 Blood Pressure 143/64 H 132/61 Pulse Oximetry 98 98 97 01/24/18 08:00 01/24/18 08:31 01/24/18 09:00 Temperature 98.8 F Pulse Rate 73 78 75 Respiratory Rate 36 H 23 21 Blood Pressure 122/59 L 131/58 L 127/60 Pulse Oximetry 98 99 96 01/24/18 09:30 Temperature Pulse Rate 72 Respiratory Rate 21 Blood Pressure 127/61 Pulse Oximetry 96 Intake & Output 01/23/18 01/24/18 01/24/18 18:59 06:59 18:59 Intake Total 854 / 854 641 / 641 Output Total 850 / 850 700 / 700 Balance 4 / 4 -59 / -59 Weight 83.8 kg Intake: IV 100 / 100 Maxipime Inj 2,000 MG In NS Inj 100 / 100 100 ML @ 200 mls/hr IV.SIG Q24H [facility] Rx#:[id number] Tube Feeding 554 / 554 441 / 441 Water Bolus Amount 200 / 200 200 / 200 Output: Urine Amount (Catheter) 850 / 850 700 / 700 Indwelling Urethral Catheter 850 / 850 700 / 700 Other: Date of Last Bowel Movement 01/23/18 01/24/18 # Bowel Movements 0 # Incontinent Bowel Movements 2 Result Diagrams: 01/24/18 04:37 01/24/18 04:37 Objective Remarks: GENERAL: Elderly 82-year-old male who is encephalopathic currently intubated SKIN: Poorly perfused. Moderate bruising noted bilateral upper and lower extremities HEENT: Atraumatic. Normocephalic. Pupils equal and round. edentulous. Intubated NECK: Trachea midline. No JVD. CARDIO: Atrial fibrillation rate controlled. Left upper chest pacemaker in place. RESP: Air entry equal bilaterally with bilateral crackles. No wheezes or rhonchi ABD: +BS, soft, non-tender, nondistended. Bilateral flank tenderness on deep palpation EXT: Extremities without clubbing, cyanosis, or edema. Poorly perfused NEURO: Intubated, Versed discontinued 01/18 @9 AM. Moves extremities weakly. Withdraws extremities x4 with deep stimulation,does not follow commands. Assessment and Plan - Assessment and Plan Plan: ASSESSMENT: Left parieto-occipital hemorrhagic infarct Septic shock Pseudomonas bacteremia Acute metabolic encephalopathy Acute hypoxemic respiratory failure UTI present on admission Lactic acidosis Worsening acute kidney failure New onset atrial fibrillation with RVR Hyperkalemia-resolved, now hypokalemic Hyponatremia History of congestive heart failure History of bladder cancer History meatal stenosis Status post recent bilateral ureteroscopy suspicious for recurrent urothelial cancer involving both ureteral orifices. Status post recent right ureteroscopy with laser lithotripsy of distal ureteral calculus Status post bilateral ureteral stent placement AAA/Thoracic aortic aneurysm Bronchiectasis/Restrictive lung disease/COPD, chronically on 2L of supplemental O2 CHF Hyperlipidemia HTN Encephalopathy PLAN: NEURO: -Versed discontinued 01/18 , still unresponsive-to pain. Currently off all sedation off. Versed will stay prolonged in the setting of a elevated creatinine. -01/22, CT brain-abnormality left parietal occipital region. 01/23 large 6.1 x 3.9 cm left occipital abnormality, probable hemorrhagic infarct -Neurosurgery consulted for hemorrhagic infarct left parieto-occipital. Cannot rule out mass lesion or abscess continue conservative management -Altered mental status/encephalopathy secondary to metabolic encephalopathy and severe sepsis and acute stroke -Continue sedation vacation -Trend ammonia level -Has mild midline shift keep sodium 145-150 RESP: -Emergently intubated and placed on mechanical ventilation for worsening metabolic acidosis altered mental status and hypoxia -PRVC/AC, Ventilator bundle -DuoNeb every 6 hours scheduled and as needed -Not tolerating CPAP trials. Very tachypneic on attempt. Most likely will need trach if family wants to continue aggressive care -Also mental status will not permit extubation -Palliative care following CV: -Developed A. fib with RVR 01/17/2018. Cardizem 30 mg 4 times daily initiated. Resume carvedilol if tolerated/hemodynamically stable -Currently rate controlled but remains in A. fib, off IV heparin due to hemorrhagic infarct -s/p Normal saline IV fluids 4L bolus since ICU admission -Diuresis per nephrology. Quarter normal saline force free water replacement -Keep MAP > 65, Levophed and vasopressin discontinued 01/18 -2D echo 07/24/17: Estimated EF 45-50%, abnormal LV diastolic function, mild to moderate AR GI: -Tube feeds with Nepro, IV famotidine -Bowel regimen : -Monitor renal function closely. Prince catheter. Patient's previous indwelling catheter was removed by Dr. Feliciano 01/16/18 -Urology Dr. Feliciano is following -Nephrology Dr. Duarte following for for worsening oliguric renal failure creatinine -Lasix 40 mg IV 3 times daily. Patient may need hemodialysis. BUN/creatinine worsening 128/3.2 -CT of abdomen pelvis on admission showed bilateral ureteral stents are in place and there is mild distention of the collecting systems bilaterally. ID: -Antibiotics continue cefepime -Blood urine and sputum cultures. Blood culture growing gram-negative rods and 3 out of 4 bottles-pseudomonas growing -ID consulted-Dr. Foster following -urine culture Pseudomonas -01/21 Resolution of leukocytosis and bandemia HEME: -Monitor CBC, coags ENDO: -Upon admission ,hyperkalemia treatment with IV insulin, IV bicarb, IV calcium, breathing treatment and Kayexalate -SSI PROPH: -Bilateral lower extremity SCDs. No pharmacological DVT pharmacologic prophylaxis at this time. famotidine LINES: -Right IJ central line placed 01/16/2018. Respiratory therapist placed art line 01/16/18-central line and arterial line discontinued 01/20 Palliative care has been consulted to define goals of care My billing statement This patient remains critically ill with one or more organ systems which are or may become a threat to life. I have spent in excess of 35 minutes discontinuously in the care and management of this patient. This time is exclusive of procedures, and includes, but is not limited to, evaluation of the patient, review of the medical record, discussions with family, consultants, nursing staff, or respiratory therapy, and documentation in the medical record. Currently in multiorgan failure now complicated with hemorrhagic infarct. Prognosis appears very poor. Palliative care following. Code Status: Full
--- NOTE | 2018-01-24 12:38 | P.PNNP ---
Subjective Interval history: Patient remains on the ventilator Physical Exam Vital signs: Vital Signs 01/23/18 14:00 01/23/18 15:16 01/23/18 16:00 Temperature Pulse Rate 75 68 Respiratory Rate 18 21 Blood Pressure 129/60 Pulse Oximetry 97 97 01/23/18 18:00 01/23/18 19:00 01/23/18 19:15 Temperature 100.8 F H Pulse Rate 70 71 Respiratory Rate 21 20 Blood Pressure 146/65 H Pulse Oximetry 97 97 01/23/18 19:30 01/23/18 20:00 01/23/18 20:30 Temperature Pulse Rate 73 72 71 Respiratory Rate 26 H 21 22 Blood Pressure 162/72 H 147/66 H 145/66 H Pulse Oximetry 97 97 97 01/23/18 21:00 01/23/18 21:30 01/23/18 22:00 Temperature Pulse Rate 72 71 75 Respiratory Rate 22 26 H 25 H Blood Pressure 145/67 H 132/62 158/70 H Pulse Oximetry 97 97 96 01/23/18 22:30 01/23/18 23:00 01/23/18 23:30 Temperature Pulse Rate 71 70 70 Respiratory Rate 22 24 22 Blood Pressure 135/60 125/59 L 127/60 Pulse Oximetry 99 99 99 01/24/18 00:00 01/24/18 00:30 01/24/18 01:00 Temperature 100 F H Pulse Rate 68 69 71 Respiratory Rate 21 23 20 Blood Pressure 119/56 L 138/64 141/65 H Pulse Oximetry 98 98 99 01/24/18 01:20 01/24/18 01:30 01/24/18 02:00 Temperature Pulse Rate 70 67 Respiratory Rate 19 21 20 Blood Pressure 149/66 H 140/63 Pulse Oximetry 98 98 97 01/24/18 02:30 01/24/18 03:00 01/24/18 03:30 Temperature Pulse Rate 67 68 69 Respiratory Rate 20 21 22 Blood Pressure 136/63 142/65 H 145/67 H Pulse Oximetry 97 98 98 01/24/18 04:00 01/24/18 04:15 01/24/18 04:30 Temperature 99.9 F H Pulse Rate 68 70 Respiratory Rate 22 20 21 Blood Pressure 141/63 H 142/65 H Pulse Oximetry 97 98 97 01/24/18 06:00 01/24/18 07:00 01/24/18 07:30 Temperature Pulse Rate 74 73 74 Respiratory Rate 20 19 Blood Pressure 143/64 H 132/61 Pulse Oximetry 98 98 01/24/18 07:36 01/24/18 08:00 01/24/18 08:31 Temperature 98.8 F Pulse Rate 73 78 Respiratory Rate 19 36 H 23 Blood Pressure 122/59 L 131/58 L Pulse Oximetry 97 98 99 01/24/18 09:00 01/24/18 09:30 01/24/18 10:00 Temperature Pulse Rate 75 72 71 Respiratory Rate 21 21 Blood Pressure 127/60 127/61 Pulse Oximetry 96 96 01/24/18 11:22 Temperature Pulse Rate Respiratory Rate 18 Blood Pressure Pulse Oximetry 98 Intake & Output 01/23/18 01/24/18 01/24/18 18:59 06:59 18:59 Intake Total 854 / 854 641 / 641 Output Total 850 / 850 700 / 700 Balance 4 / 4 -59 / -59 Weight 83.8 kg Intake: IV 100 / 100 Maxipime Inj 2,000 MG In NS Inj 100 / 100 100 ML @ 200 mls/hr IV.SIG Q24H [facility] Rx#:[id number] Tube Feeding 554 / 554 441 / 441 Water Bolus Amount 200 / 200 200 / 200 Output: Urine Amount (Catheter) 850 / 850 700 / 700 Indwelling Urethral Catheter 850 / 850 700 / 700 Other: Date of Last Bowel Movement 01/23/18 01/24/18 01/24/18 # Bowel Movements 0 # Incontinent Bowel Movements 2 Narrative: Patient remain on the vent. and remain unresponsive. HEENT: Pupil mid constricted, non icteric , conjuntive pale. Neck: Supple, JVD not elevated. Lungs: Bilateral decrease air entry at bases, occ. wheezing. Abd. distended, non tender, BS positive. Ext: Mild leg edema. - Urinary Catheter Management Indwelling Urethral Catheter Cath placed during this visit: yes Reason for continuing: Chronic Urinary Retention Insertion date: 01/16/18 Insertion time: 17:30 Assessment and Plan - Assessment (1) Acute kidney injury Code(s): N17.9 - Acute kidney failure, unspecified Status: Acute Plan: Patient with Acute kidney injury and Hyperkalemia, Urine out put is low. Most likely has ATN due to hypotension, now BP is better, K is low, on replacement. Creatinine continue to improve, Na. is increasing , now 159. BUN and creatinine high and patient is nonoliguric Replace potassium . No immediate need for dialysis discussed with Dr. Uribe on free water via GT. Agree with one fourth of saline 125 cc an hour,add Albumin 25 G IV Q 6 Follow the urine out put and BMP. Avoid Nephrotoxins. No improvement in Encephalopathy. Neurology following. Also seen by Palliative care. (2) Sepsis Code(s): A41.9 - Sepsis, unspecified organism Status: Acute Plan: Blood cultures positive for Pseudomonas on cefepime (3) Acute UTI Code(s): N39.0 - Urinary tract infection, site not specified Status: Acute Plan: Has cefepime for Pseudomonas. (4) Respiratory failure Code(s): J96.90 - Respiratory failure, unspecified, unspecified whether with hypoxia or hypercapnia Status: Acute Plan: Patient is intubated on very mild sedation.
[2018-01-24] MEDS: Albumin Human 25% Inj 100 ML IV.SIG SCH ×2 (16:02→21:49)
[2018-01-25] MEDS: Oral Hygiene Kit OROPHARYNG SCH ×4 (00:18→15:17)
[2018-01-25] MEDS: Albumin Human 25% Inj 100 ML IV.SIG SCH ×4 (02:28→20:15)
[2018-01-25] MEDS: hydrALAZINE HCl Inj 20 MG/ML Vial IV.PUSH PRN (04:16)
[2018-01-25 06:17] LABS: Alanine Aminotransferase 145 U/L (12-78); Albumin 2.7 g/dL (3.4-5.0); Alkaline Phosphatase 108 U/L (45-117); Anion Gap 8 meq/L (5-15); Aspartate Aminotransferase 94 U/L (15-37); Blood Urea Nitrogen 119 mg/dL (7-18); Calcium 7.7 mg/dL (8.5-10.1); Carbon Dioxide 27.7 meq/L (21.0-32.0); Chloride 122 meq/L (98-107); Glomerular Filtration Rate 23 mL/min (>89); Glucose,Random 155 mg/dL (74-106); Potassium 3.1 meq/L (3.5-5.1)
[2018-01-25 06:22] LABS: Baso # (Auto) 0.1 th/mm3 (0.0-0.2); Baso % (Auto) 0.4 % (0.0-2.0); Eos # (Auto) 0.7 th/mm3 (0.0-0.4); Eos % (Auto) 4.6 % (0.0-4.0); Hematocrit 31.7 % (39.0-51.0); Hemoglobin 10.5 gm/dL (13.0-17.0); Lymph # (Auto) 1.3 th/mm3 (1.0-4.8); Lymph % (Auto) 8.7 % (9.0-44.0); Mean Corpuscular Hemoglobin 29.1 pg (27.0-34.0); Mean Corpuscular Volume 88.3 fL (80.0-100.0); Mono # (Auto) 0.7 th/mm3 (0.0-0.9); Mono % (Auto) 4.6 % (0.0-8.0); Neut # (Auto) 12.1 th/mm3 (1.8-7.7); Neut % (Auto) 81.7 % (16.0-70.0); Platelet Count 209 th/mm3 (150-450); Red Blood Count 3.59 mil/mm3 (4.50-5.90); Red Cell Distribution Width 15.3 % (11.6-17.2); White Blood Count 14.8 th/mm3 (4.0-11.0)
[2018-01-25 06:24] LABS: Sodium 158 meq/L (136-145)
[2018-01-25] MEDS: Sodium Chloride 23.4% Inj 38.5 MEQ in Water for Inj, Sterile 1,000 ML IV.CONT SCH ×3 (08:33→17:57)
[2018-01-25] MEDS: Famotidine PF Inj 20 MG/2 ML Vial IV.PUSH SCH (08:34)
[2018-01-25] MEDS: Carvedilol 6.25 MG Tablet PO SCH (08:34)
[2018-01-25] MEDS: Senna/Docusate Sodium 8.6/50 MG Tablet PO SCH ×2 (08:34→20:15)
[2018-01-25] MEDS: dilTIAZem 30 MG Tablet PO SCH ×4 (08:34→20:15)
[2018-01-25] MEDS: Chlorhexidine 0.12% Oral Kit 15 ML UDC OROPHARYNG SCH ×2 (08:35→20:15)
[2018-01-25] MEDS ORDERED: Carvedilol 6.25 MG Tablet PO SCH (09:02)
--- NOTE | 2018-01-25 09:04 | P.PNCC ---
Subjective Subjective Remarks/Hospital Course: Mr. Cheung is a 82-year-old male with bladder cancer, thoracic and abdominal aortic aneurysm, Bronchiectasis, Restrictive lung disease, COPD, on 2L of supplemental O2, history of congestive heart failure, Hyperlipidemia, HTN who recently underwent recent cystoscopy with meatal dilation about 4 days ago. According to Dr. 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 He underwent laser ablation of the tumor masses with biopsy along with laser lithotripsy and extraction of the right ureteral calculus. Bilateral stents were placed. Patient came to the ER today with symptoms of UTI and sepsis, altered mental status. UA showed evidence of UTI. Patient was started on Rocephin and admitted to hospitalist service. Over the course of the day patient clinically started deteriorating hypotensive with worsening encephalopathy hardly responsive. Patient was transferred to the ICU and critical care medicine was consulted. I evaluated the patient in the ICU he is very lethargic encephalopathy. Currently received 2 L normal saline bolus and had been started on Levophed currently at 12 mcg/min. Despite this patient is hypotensive. Initial ABG showed a pH of 7.25 PCO2 50 base excess -5 now slightly worse with pH of 7.23 PCO2 52. Due to severe sepsis and metabolic acidosis patient is not a candidate for BiPAP. WBC count of on admission was 14 with left shift now has worsened to 20.4. Initial lactic acid was 2,2 repeat lactic acid is pending at this time. Patient previously was sent home with indwelling Prince by Dr. Cabrera , he removed the Prince today. Patient has been oliguric and in renal failure. Will replace the Prince for strict hourly intake output 01/17: Remains critical intubated sedated. Blood cultures all bottles growing gram-negative rods. Currently on Zosyn. Creatinine has worsened to 3, potassium is 6.2. Urine output has been marginal 10-15 mL/h. CVP is only 9. Fluid challenge with 1 L normal saline bolus and maintenance fluid 100 mL/h. Nephrology consulted, CMP at noon. Treatment for hyperkalemia ordered with IV insulin followed by dextrose, calcium, bicarb, Kayexalate and breathing treatments. 01/18: Remains critical, remains in multiorgan failure. Started on Lasix by nephrology yesterday urine output approximately 1 L, worsening BUN/creatinine 66 /3.74. Will discuss with nephrology regarding dialysis though there is no acute indication. WBC count slightly improved to 15.2. Patient developed A. fib with RVR yesterday, started on Cardizem infusion after bolus. Will DC Lovenox for DVT prophylaxis and start on IV heparin for persistent A. fib. 01/19: Patient continues on heparin and Cardizem infusion. WBC count slightly improved. Urine output increased 2 L in 12 hours last evening. Patient continues in A. fib but rate controlled will transition to p.o.. 01/20: T-max 101.0 Cardizem has been transition to p.o. 30 mg 4 times daily. The patient continues to fail CPAP trials. Urine output continues to increase. Continue continued improvement in WBC count. No change in neurological status , despite being off sedation greater than 48 hours continue to monitor. 01/21: Late entry note patient seen approximately at 11 AM .afebrile. Patient remains uncertain responsive despite> than 48 hours of discontinuation of Versed however patient noted to have an elevated creatinine so significantly less clearance of the prolonged Versed infusion stat labs being obtained ammonia level cortisol level. Neurology also has been consulted. Stat CT of the head obtained revealed abnormality in the left parietal occipital region, heparin placed on hold. Stat MRI is pending. Patient tolerating CPAP trials today greater than 2-1/2 hours thus far. 01/22: Neuro assessment performed earlier this a.m. patient has spontaneous eye opening moving head responding to pain , noted visual tracking. Repeat CT head obtained this a.m. per neurology recommendations, noted unchanged. Inability to obtain MRI secondary to pacemaker. EEG results are pending .maintain systolic blood pressure less than 140 PRN antihypertensives initiated. Carvedilol resumed. Echo pending. Extensive discussion with family at bedside patient's and children medical status update given all questions answered. 01/23: Afebrile .No acute change overnight. Systolic blood pressure being maintained less than 140. Carotid ultrasound is pending. Patient noted to be hyponatremic free water flushes added to medication regimen. CPAP trials continued. 01/24: Remains intubated off all sedation remains severely encephalopathic. 128/ 3.2 today. Nonoliguric. Sodium 159. Started on quarter normal saline at 120 femoral per hour. Potassium getting replaced. Discussed worsening renal function with Dr. Crandall nephrology. Neurosurgery has seen for left hemorrhagic infarct continue conservative management SUBJECTIVE: 01/25: Remains on quarter normal saline 125 cc hours with free water 200 cc p.o. every 6 hours per NG tube. Arousable and follows commands more weakly in the left upper and lower extremity. Tolerating tube feeds at goal. Objective Vital Signs / I&O: Vital Signs 01/24/18 09:30 01/24/18 10:00 01/24/18 10:30 Temperature Pulse Rate 72 71 70 Respiratory Rate 21 23 23 Blood Pressure 127/61 131/61 129/60 Pulse Oximetry 96 99 98 01/24/18 11:00 01/24/18 11:22 01/24/18 11:30 Temperature Pulse Rate 70 68 Respiratory Rate 22 18 19 Blood Pressure 135/65 109/56 L Pulse Oximetry 98 98 98 01/24/18 12:00 01/24/18 12:30 01/24/18 13:00 Temperature 98.9 F Pulse Rate 69 70 69 Respiratory Rate 22 20 21 Blood Pressure 126/61 127/62 Pulse Oximetry 99 99 98 01/24/18 13:06 01/24/18 13:30 01/24/18 14:00 Temperature Pulse Rate 69 68 66 Respiratory Rate 19 19 21 Blood Pressure 130/60 131/60 129/60 Pulse Oximetry 97 98 98 01/24/18 14:30 01/24/18 15:00 01/24/18 15:30 Temperature Pulse Rate 68 65 67 Respiratory Rate 21 22 19 Blood Pressure 136/63 129/61 123/58 L Pulse Oximetry 98 98 98 01/24/18 16:00 01/24/18 16:02 01/24/18 16:30 Temperature 99.4 F Pulse Rate 69 67 Respiratory Rate 20 18 18 Blood Pressure 134/62 134/61 Pulse Oximetry 97 98 99 01/24/18 17:00 01/24/18 17:30 01/24/18 17:51 Temperature Pulse Rate 62 66 70 Respiratory Rate 18 18 21 Blood Pressure 130/62 143/67 H 163/70 H Pulse Oximetry 99 99 100 01/24/18 18:00 01/24/18 18:30 01/24/18 19:00 Temperature Pulse Rate 67 67 66 Respiratory Rate 22 22 20 Blood Pressure 141/63 H 134/61 133/63 Pulse Oximetry 100 98 97 01/24/18 19:29 01/24/18 19:30 01/24/18 19:38 Temperature Pulse Rate 62 69 Respiratory Rate 19 20 23 Blood Pressure 132/55 L Pulse Oximetry 99 98 01/24/18 20:00 01/24/18 20:31 01/24/18 21:00 Temperature 99.2 F Pulse Rate 74 67 68 Respiratory Rate 26 H 26 H 21 Blood Pressure 133/60 134/63 137/63 Pulse Oximetry 99 100 99 01/24/18 21:31 01/24/18 22:00 01/24/18 22:30 Temperature Pulse Rate 71 67 69 Respiratory Rate 25 H 20 21 Blood Pressure 162/70 H 119/59 L 124/58 L Pulse Oximetry 99 98 98 01/24/18 23:00 01/24/18 23:10 01/24/18 23:30 Temperature Pulse Rate 64 61 Respiratory Rate 20 20 20 Blood Pressure 108/53 L 117/58 L Pulse Oximetry 98 98 98 01/25/18 00:00 01/25/18 00:30 01/25/18 01:00 Temperature 99.3 F Pulse Rate 61 64 63 Respiratory Rate 19 19 20 Blood Pressure 120/60 112/54 L 117/56 L Pulse Oximetry 98 99 98 01/25/18 01:30 01/25/18 02:00 01/25/18 02:30 Temperature Pulse Rate 62 60 60 Respiratory Rate 19 19 18 Blood Pressure 130/61 120/66 124/61 Pulse Oximetry 99 99 99 01/25/18 03:00 01/25/18 03:30 01/25/18 03:32 Temperature 98.5 F Pulse Rate 60 60 61 Respiratory Rate 19 19 20 Blood Pressure 131/59 L 142/66 H 140/66 Pulse Oximetry 100 100 100 01/25/18 04:00 01/25/18 06:00 01/25/18 07:24 Temperature Pulse Rate 66 60 Respiratory Rate 18 17 Blood Pressure 151/77 H Pulse Oximetry 100 98 Intake & Output 01/24/18 01/25/18 01/25/18 18:59 06:59 18:59 Intake Total 2431 / 2431 1483 / 1483 Output Total 850 / 850 950 / 950 Balance 1581 / 1581 533 / 533 Weight 85.4 kg Intake: IV 1210 / 1210 200 / 200 Sodium Chloride 23.4% Inj 38.5 1010 / 1010 MEQ In Sterile Water for Inj 1, 000 ML @ 125 mls/hr IV.CONT . Q8H5M [facility] Rx#:[id number] Flexbumin 25% Inj 100 ML @ 60 100 / 100 200 / 200 mls/hr IV.SIG Q6H [facility] Rx#: [id number] Maxipime Inj 2,000 MG In NS Inj 100 / 100 100 ML @ 200 mls/hr IV.SIG Q24H [facility] Rx#:[id number] Tube Feeding 471 / 471 533 / 533 Water Bolus Amount 750 / 750 750 / 750 Output: Urine 950 / 950 Urine Amount (Catheter) 850 / 850 Indwelling Urethral Catheter 850 / 850 Other: Date of Last Bowel Movement 01/24/18 # Bowel Movements 1 Result Diagrams: 01/25/18 04:57 01/25/18 04:57 Other Results: Microbiology 01/20/18 05:51 Blood - Peripheral Aerobic Blood Culture - Preliminary No growth in 4 days 01/20/18 05:51 Blood - Peripheral Anaerobic Blood Culture - Preliminary No growth in 4 days 01/20/18 06:01 Blood - Peripheral Aerobic Blood Culture - Preliminary No growth in 4 days 01/20/18 06:01 Blood - Peripheral Anaerobic Blood Culture - Preliminary No growth in 4 days 01/16/18 08:20 Blood - Peripheral Aerobic Blood Culture - Final Pseudomonas aeruginosa 01/16/18 08:20 Blood - Peripheral Anaerobic Blood Culture - Final No growth in 5 days 01/16/18 08:05 Blood - Peripheral Aerobic Blood Culture - Final Pseudomonas aeruginosa 01/16/18 08:05 Blood - Peripheral Anaerobic Blood Culture - Final Pseudomonas aeruginosa 01/16/18 06:28 Catheterized Urine Urine Culture - Final Pseudomonas aeruginosa Imaging: Chest X-Ray 01/16/18 00:00 CONCLUSION: 1. Interval intubation. 2. Placement of right internal jugular central venous line with no pneumothorax. 3. Streaky opacity remains at the lung bases without significant change. Abdomen/Pelvis CT 01/16/18 04:21 CONCLUSION: 1. Bilateral ureteral stents are in place and there is mild distention of the collecting systems bilaterally. Both kidneys enhance heterogeneously. 2. 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 Chest X-Ray 01/16/18 04:21 CONCLUSION: Stable mildly enlarged cardiac silhouette. No acute abnormality is identified. Chest X-Ray 01/16/18 15:20 CONCLUSION: Cardiomegaly with prominence of the interstitial markings likely related to mild edema. Chest X-Ray 01/17/18 06:00 CONCLUSION: Stable chest x-ray with mild bibasilar opacity representing either atelectasis or consolidation. Chest X-Ray 01/18/18 06:00 CONCLUSION: Stable chest x-ray with mild bibasilar opacity. Chest X-Ray 01/20/18 04:00 CONCLUSION: Improvement in the areas of basilar consolidation. Head CT 01/21/18 12:18 CONCLUSION: 1. Abnormal left parietal occipital region. MRI suggested. . Head CT 01/22/18 05:00 CONCLUSION: 1. No significant interval change. 2. Stable large 6.1 x 3.9 cm left occipital abnormality, as above. Differential considerations include mass versus evolving hemorrhagic infarct. Consider contrast enhanced MRI examination for further characterization. . Carotid Doppler Study 01/23/18 00:00 CONCLUSION: 1. Right Internal Carotid Artery: Findings indicate <50% stenosis. 2. Left Internal Carotid Artery: Findings indicate 50-69% stenosis. This is likely in the higher aspect of this range. Chest X-Ray 01/23/18 04:00 CONCLUSION: Stable appearance of the chest. Objective Remarks: GENERAL: Elderly 82-year-old male who is encephalopathic currently intubated SKIN: Poorly perfused. Moderate bruising noted bilateral upper and lower extremities HEENT: Atraumatic. Normocephalic. Pupils equal and round. edentulous. Intubated NECK: Trachea midline. No JVD. CARDIO: A tachycardic, RR. S1, S2. No S4. Left upper chest pacemaker in place. RESP: Air entry equal bilaterally with bilateral crackles. No wheezes or rhonchi ABD: +BS, soft, non-tender, nondistended. Do not appreciate any flank tenderness on deep palpation EXT: Extremities without clubbing, cyanosis, or edema. Poorly perfused NEURO: Intubated, follows commands. Strength 5 out of 5 right upper elixir. 4- 5 left upper lower extremity. Nods head appropriately questions. Assessment and Plan - Assessment and Plan Plan: NEURO/PSYCH: Left parieto-occipital hemorrhagic infarct versus mass versus abscess -Versed discontinued 01/18 , still unresponsive-to pain. Currently off all sedation off. -01/22, CT brain-abnormality left parietal occipital region. 01/23 large 6.1 x 3.9 cm left occipital abnormality, probable hemorrhagic infarct Followed by Dr. Kemp/neurology -Neurosurgery consulted for hemorrhagic infarct left parieto-occipital. Recommend repeat CT brain in 2 weeks with contrast if able cannot rule out mass lesion or abscess continue conservative management -Altered mental status/encephalopathy secondary to metabolic encephalopathy and severe sepsis and acute stroke -Continue sedation vacation -Trend ammonia level -Has mild midline shift keep sodium 145-150 -Holding SE prime 10 mg daily/home medication RESP: Bronchiectasis/Restrictive lung disease/COPD, chronically on 2L of supplemental O2 Obstructive sleep apnea on CPAP at night Acute hypoxemic respiratory failure -Emergently intubated and placed on mechanical ventilation for worsening metabolic acidosis altered mental status and hypoxia -PRVC/AC, Ventilator bundle -Albuterol/ipratropium aerosols every 4 hours with albuterol aerosols every 2 hours as needed -Not tolerating CPAP trials. Very tachypneic on attempt. -Also mental status will not permit extubation -Palliative care following CV: CHF/systolic Hyperlipidemia HTN Atrial fibrillation AAA/Thoracic aortic aneurysm -Developed A. fib with RVR 01/17/2018. Diltiazem 30 mg 4 times daily initiated. Carvedilol 12.5 twice daily and amlodipine 10 mg daily -Currently rate controlled but remains in A. fib, off IV heparin due to hemorrhagic infarct -s/p Normal saline IV fluids 4L bolus since ICU admission -Diuresis per nephrology. Quarter normal saline force free water replacement -Keep MAP > 65, Levophed and vasopressin discontinued 01/18 -2D echo 07/24/17: Estimated EF 45-50%, abnormal LV diastolic function, mild to moderate AR -Holding diuretics -Currently on atorvastatin 10 mg daily for hyperlipidemia GI: Elevated transaminases -Tube feeds with Nepro 50 cc an hour, Lansoprazole for GI prophylaxis -Bowel regimen Renal/: History meatal stenosis Status post recent bilateral ureteroscopy suspicious for recurrent urothelial cancer involving both ureteral orifices. Status post recent right ureteroscopy with laser lithotripsy of distal ureteral calculus Status post bilateral ureteral stent placement Acute kidney injury likely secondary to hypoperfusion/hypotension -Monitor renal function closely. Prince catheter. Patient's previous indwelling catheter was removed by Dr. Feliciano 01/16/18 -Urology Dr. Feliciano is following -Nephrology Dr. Duarte following for for worsening oliguric renal failure creatinine May need hemodialysis -CT of abdomen pelvis on admission showed bilateral ureteral stents are in place and there is mild distention of the collecting systems bilaterally. Continue tamsulosin 0.4 mg daily ID: Pseudomonas bacteremia/urosepsis -Antibiotics continue cefepime -Blood urine and sputum cultures. Blood culture growing gram-negative rods and 3 out of 4 bottles-pseudomonas growing -ID consulted-Dr. Foster following -urine culture Pseudomonas -01/21 Resolution of leukocytosis and bandemia HEME: Low-grade papillary urethral carcinoma Normocytic anemia Leukocytosis -Monitor CBC, coags ENDO/FEN: Hypernatremia Hypopotassemia -Upon admission ,hyperkalemia treatment with IV insulin, IV bicarb, IV calcium, breathing treatment and Kayexalate -SSI with aspart insulin every 6 hours low regimen Received 50 mEq potassium chloride by tube x1 now. Recheck in a.m. Continue free water to 50 every 4 hours" normal saline 125 cc an hour PROPH: -Bilateral lower extremity SCDs. No pharmacological DVT pharmacologic prophylaxis at this time. Lansoprazole LINES: Utilize peripheral IV. Central line if indicated -Right IJ central line placed 01/16/2018. Respiratory therapist placed art line 01/16/18-central line and arterial line discontinued 01/20 Palliative care has been consulted to define goals of care Level 3 follow-up
[2018-01-25] MEDS ORDERED: Dextrose 50% in Water 50 ML Vial IV.PUSH PRN (09:14)
[2018-01-25] MEDS ORDERED: Potassium Chloride 25 MEQ Effervescent Tablet PO ONE (09:17)
--- NOTE | 2018-01-25 10:40 | P.PNNP ---
Subjective Interval history: Patient is on the ventilator responsive FiO2 decreased to 35% CPAP trial Physical Exam Vital signs: Vital Signs 01/24/18 11:00 01/24/18 11:22 01/24/18 11:30 Temperature Pulse Rate 70 68 Respiratory Rate 22 18 19 Blood Pressure 135/65 109/56 L Pulse Oximetry 98 98 98 01/24/18 12:00 01/24/18 12:30 01/24/18 13:00 Temperature 98.9 F Pulse Rate 69 70 69 Respiratory Rate 22 20 21 Blood Pressure 126/61 127/62 Pulse Oximetry 99 99 98 01/24/18 13:06 01/24/18 13:30 01/24/18 14:00 Temperature Pulse Rate 69 68 66 Respiratory Rate 19 19 21 Blood Pressure 130/60 131/60 129/60 Pulse Oximetry 97 98 98 01/24/18 14:30 01/24/18 15:00 01/24/18 15:30 Temperature Pulse Rate 68 65 67 Respiratory Rate 21 22 19 Blood Pressure 136/63 129/61 123/58 L Pulse Oximetry 98 98 98 01/24/18 16:00 01/24/18 16:02 01/24/18 16:30 Temperature 99.4 F Pulse Rate 69 67 Respiratory Rate 20 18 18 Blood Pressure 134/62 134/61 Pulse Oximetry 97 98 99 01/24/18 17:00 01/24/18 17:30 01/24/18 17:51 Temperature Pulse Rate 62 66 70 Respiratory Rate 18 18 21 Blood Pressure 130/62 143/67 H 163/70 H Pulse Oximetry 99 99 100 01/24/18 18:00 01/24/18 18:30 01/24/18 19:00 Temperature Pulse Rate 67 67 66 Respiratory Rate 22 22 20 Blood Pressure 141/63 H 134/61 133/63 Pulse Oximetry 100 98 97 01/24/18 19:29 01/24/18 19:30 01/24/18 19:38 Temperature Pulse Rate 62 69 Respiratory Rate 19 20 23 Blood Pressure 132/55 L Pulse Oximetry 99 98 01/24/18 20:00 01/24/18 20:31 01/24/18 21:00 Temperature 99.2 F Pulse Rate 74 67 68 Respiratory Rate 26 H 26 H 21 Blood Pressure 133/60 134/63 137/63 Pulse Oximetry 99 100 99 01/24/18 21:31 01/24/18 22:00 12/08/18 22:30 Temperature Pulse Rate 71 67 69 Respiratory Rate 25 H 20 21 Blood Pressure 162/70 H 119/59 L 124/58 L Pulse Oximetry 99 98 98 01/24/18 23:00 01/24/18 23:10 01/24/18 23:30 Temperature Pulse Rate 64 61 Respiratory Rate 20 20 20 Blood Pressure 108/53 L 117/58 L Pulse Oximetry 98 98 98 01/25/18 00:00 01/25/18 00:30 01/25/18 01:00 Temperature 99.3 F Pulse Rate 61 64 63 Respiratory Rate 19 19 20 Blood Pressure 120/60 112/54 L 117/56 L Pulse Oximetry 98 99 98 01/25/18 01:30 01/25/18 02:00 01/25/18 02:30 Temperature Pulse Rate 62 60 60 Respiratory Rate 19 19 18 Blood Pressure 130/61 120/66 124/61 Pulse Oximetry 99 99 99 01/25/18 03:00 01/25/18 03:30 01/25/18 03:32 Temperature 98.5 F Pulse Rate 60 60 61 Respiratory Rate 19 19 20 Blood Pressure 131/59 L 142/66 H 140/66 Pulse Oximetry 100 100 100 01/25/18 04:00 01/25/18 04:31 01/25/18 05:00 Temperature Pulse Rate 66 60 60 Respiratory Rate 18 19 19 Blood Pressure 151/77 H 132/60 148/67 H Pulse Oximetry 100 100 100 01/25/18 05:18 01/25/18 05:30 01/25/18 06:00 Temperature Pulse Rate 60 60 62 Respiratory Rate 20 19 24 Blood Pressure 127/58 L 131/60 150/68 H Pulse Oximetry 100 100 100 01/25/18 06:10 01/25/18 06:15 01/25/18 06:20 Temperature Pulse Rate 61 63 60 Respiratory Rate 27 H 22 24 Blood Pressure 144/65 H 139/63 145/66 H Pulse Oximetry 100 100 100 01/25/18 06:25 01/25/18 06:30 01/25/18 07:00 Temperature Pulse Rate 60 60 60 Respiratory Rate 20 23 18 Blood Pressure 140/59 L 139/64 122/58 L Pulse Oximetry 100 100 99 01/25/18 07:24 01/25/18 07:30 01/25/18 08:00 Temperature 99.3 F Pulse Rate 60 61 Respiratory Rate 17 26 H 26 H Blood Pressure 153/69 H 151/67 H Pulse Oximetry 98 99 99 01/25/18 08:31 01/25/18 09:00 01/25/18 09:01 Temperature Pulse Rate 61 59 L 59 L Respiratory Rate 26 H 25 H 24 Blood Pressure 157/70 H 140/64 Pulse Oximetry 100 100 100 01/25/18 09:30 01/25/18 10:00 Temperature Pulse Rate 60 59 L Respiratory Rate 23 Blood Pressure 145/67 H Pulse Oximetry 99 Intake & Output 01/24/18 01/25/18 01/25/18 18:59 06:59 18:59 Intake Total 2431 / 2431 1483 / 1483 100 / 100 Output Total 850 / 850 950 / 950 Balance 1581 / 1581 533 / 533 100 / 100 Weight 85.4 kg Intake: IV 1210 / 1210 200 / 200 100 / 100 Sodium Chloride 23.4% Inj 38.5 1010 / 1010 MEQ In Sterile Water for Inj 1, 000 ML @ 125 mls/hr IV.CONT . Q8H5M [facility] Rx#:[id number] Flexbumin 25% Inj 100 ML @ 60 100 / 100 200 / 200 100 / 100 mls/hr IV.SIG Q6H [facility] Rx#: [id number] Maxipime Inj 2,000 MG In NS Inj 100 / 100 100 ML @ 200 mls/hr IV.SIG Q24H [facility] Rx#:[id number] Tube Feeding 471 / 471 533 / 533 Water Bolus Amount 750 / 750 750 / 750 Output: Urine 950 / 950 Urine Amount (Catheter) 850 / 850 Indwelling Urethral Catheter 850 / 850 Other: Date of Last Bowel Movement 01/24/18 01/24/18 # Bowel Movements 1 Narrative: Patient remain on the vent. and remain responsive. HEENT: Pupil mid constricted, non icteric , conjuntive pale. Neck: Supple, JVD not elevated. Lungs: Clear to auscultation Abd. soft, non tender, BS positive. Ext: Mild leg edema. - Urinary Catheter Management Indwelling Urethral Catheter Cath placed during this visit: yes Reason for continuing: Chronic Urinary Retention Insertion date: 01/16/18 Insertion time: 17:30 Assessment and Plan - Assessment (1) Acute kidney injury Code(s): N17.9 - Acute kidney failure, unspecified Status: Acute Plan: Patient with Acute kidney injury and Hyperkalemia, Urine out put is low. Most likely has ATN due to hypotension, now BP is better, K is low, on replacement. K-Lyte 50 mEq given Creatinine continue to improve, Na. is 158. BUN and creatinine improved and patient is nonoliguric Replace potassium Patient has underlying Pseudomonas infection on cefepime, repeat cultures are negative on free water via GT. Agree with one fourth of saline 125 cc an hour,added Albumin 25 G IV Q 6 till Friday Follow the urine out put and BMP. Declining creatinine 2.69 BUN also declined Avoid Nephrotoxins. Improved mental status Neurology following. Also seen by Palliative care. Dr. Duarte to follow (2) Sepsis Code(s): A41.9 - Sepsis, unspecified organism Status: Acute Plan: Blood cultures positive for Pseudomonas on cefepime (3) Acute UTI Code(s): N39.0 - Urinary tract infection, site not specified Status: Acute Plan: Has cefepime for Pseudomonas. (4) Respiratory failure Code(s): J96.90 - Respiratory failure, unspecified, unspecified whether with hypoxia or hypercapnia Status: Acute Plan: Patient is intubated on very mild sedation.
[2018-01-25] MEDS: Insulin NovoLOG Aspart Correctional Sugar Inj SQ SCH ×2 (12:38→18:24)
[2018-01-25 14:36] LABS: ABG Base Excess 2.8 mmol/L (-2-2); ABG PCO2 40 mmHg (38-42); ABG PO2 107 mmHg (61-120)
[2018-01-25] MEDS: Carvedilol 12.5 MG Tablet PO SCH (20:15)
[2018-01-26] MEDS: Insulin NovoLOG Aspart Correctional Sugar Inj SQ SCH ×5 (00:41→23:47)
[2018-01-26] MEDS: Oral Hygiene Kit OROPHARYNG SCH ×5 (00:41→23:47)
[2018-01-26] MEDS: Sodium Chloride 23.4% Inj 38.5 MEQ in Water for Inj, Sterile 1,000 ML IV.CONT SCH ×3 (01:47→10:00)
[2018-01-26] MEDS: Albumin Human 25% Inj 100 ML IV.SIG SCH ×3 (01:47→14:33)
--- NOTE | 2018-01-26 04:56 | XR ---
EXAM DATE: 01/26/2018 4:41 AM EST AGE/SEX: 82 years / Male INDICATIONS: Shortness of breath, possible pulmonary disease. CLINICAL DATA: This is the patient's subsequent encounter. Patient reports that signs and symptoms h ave been present for 1 week and indicates a pain score of Nonresponsive. MEDICAL/SURGICAL HISTORY: Carcinoma, bladder. Chronic obstructive pulmonary disease. Congesti ve heart failure. Sleep apnea. BPH. Arrhythmia. Renal calculi. Thoracic and abdominal aortic aneurys m. 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 COMPARISON: . FINDINGS: Single AP view the chest. Endotracheal tube and nasogastric tube remain in place. Mild opacity in the lungs bilaterally unchanged. No evidence of pleural effusion or pneumothorax. Cardiac pacemaker agai n noted. Cardiac silhouette unchanged. CONCLUSION: No significant interval change with mild bilateral pulmonary parenchymal opacity. Electronically signed by: Ryne Alfonso MD 01/26/2018 4:54 AM EST
[2018-01-26 05:13] LABS: Baso # (Auto) 0.1 th/mm3 (0.0-0.2); Baso % (Auto) 0.3 % (0.0-2.0); Eos # (Auto) 0.5 th/mm3 (0.0-0.4); Eos % (Auto) 3.7 % (0.0-4.0); Hematocrit 29.6 % (39.0-51.0); Hemoglobin 9.9 gm/dL (13.0-17.0); Lymph # (Auto) 1.1 th/mm3 (1.0-4.8); Lymph % (Auto) 7.4 % (9.0-44.0); Mean Corpuscular HGB Conc 33.3 % (32.0-36.0); Mean Corpuscular Hemoglobin 29.2 pg (27.0-34.0); Mean Corpuscular Volume 87.6 fL (80.0-100.0); Mean Platelet Volume 10.4 fL (7.0-11.0); Mono # (Auto) 0.7 th/mm3 (0.0-0.9); Mono % (Auto) 4.4 % (0.0-8.0); Neut # (Auto) 12.6 th/mm3 (1.8-7.7); Neut % (Auto) 84.2 % (16.0-70.0); Platelet Count 193 th/mm3 (150-450); Red Blood Count 3.38 mil/mm3 (4.50-5.90); Red Cell Distribution Width 15.5 % (11.6-17.2); White Blood Count 14.9 th/mm3 (4.0-11.0)
[2018-01-26 05:47] LABS: Alanine Aminotransferase 133 U/L (12-78); Albumin 3.2 g/dL (3.4-5.0); Alkaline Phosphatase 103 U/L (45-117); Anion Gap 9 meq/L (5-15); Aspartate Aminotransferase 86 U/L (15-37); Blood Urea Nitrogen 106 mg/dL (7-18); Calcium 7.8 mg/dL (8.5-10.1); Carbon Dioxide 26.4 meq/L (21.0-32.0); Chloride 116 meq/L (98-107); Glomerular Filtration Rate 29 mL/min (>89); Glucose,Random 121 mg/dL (74-106); Magnesium 3.1 mg/dL (1.5-2.5); Phosphorus 2.7 mg/dL (2.5-4.9); Potassium 3.3 meq/L (3.5-5.1); Sodium 151 meq/L (136-145)
[2018-01-26] MEDS ORDERED: Acetaminophen 325 MG Tablet PO PRN (06:36)
[2018-01-26] MEDS ORDERED: Potassium Chloride 25 MEQ Effervescent Tablet PO ONE (06:44)
--- NOTE | 2018-01-26 06:44 | P.PNCC ---
Subjective Subjective Remarks/Hospital Course: Mr. Cheung is a 82-year-old male with bladder cancer, thoracic and abdominal aortic aneurysm, Bronchiectasis, Restrictive lung disease, COPD, on 2L of supplemental O2, history of congestive heart failure, Hyperlipidemia, HTN who recently underwent recent cystoscopy with meatal dilation about 4 days ago. According to Dr. 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 He underwent laser ablation of the tumor masses with biopsy along with laser lithotripsy and extraction of the right ureteral calculus. Bilateral stents were placed. Patient came to the ER today with symptoms of UTI and sepsis, altered mental status. UA showed evidence of UTI. Patient was started on Rocephin and admitted to hospitalist service. Over the course of the day patient clinically started deteriorating hypotensive with worsening encephalopathy hardly responsive. Patient was transferred to the ICU and critical care medicine was consulted. I evaluated the patient in the ICU he is very lethargic encephalopathy. Currently received 2 L normal saline bolus and had been started on Levophed currently at 12 mcg/min. Despite this patient is hypotensive. Initial ABG showed a pH of 7.25 PCO2 50 base excess -5 now slightly worse with pH of 7.23 PCO2 52. Due to severe sepsis and metabolic acidosis patient is not a candidate for BiPAP. WBC count of on admission was 14 with left shift now has worsened to 20.4. Initial lactic acid was 2,2 repeat lactic acid is pending at this time. Patient previously was sent home with indwelling Prince by Dr. Cabrera , he removed the Prince today. Patient has been oliguric and in renal failure. Will replace the Prince for strict hourly intake output 01/17: Remains critical intubated sedated. Blood cultures all bottles growing gram-negative rods. Currently on Zosyn. Creatinine has worsened to 3, potassium is 6.2. Urine output has been marginal 10-15 mL/h. CVP is only 9. Fluid challenge with 1 L normal saline bolus and maintenance fluid 100 mL/h. Nephrology consulted, CMP at noon. Treatment for hyperkalemia ordered with IV insulin followed by dextrose, calcium, bicarb, Kayexalate and breathing treatments. 01/18: Remains critical, remains in multiorgan failure. Started on Lasix by nephrology yesterday urine output approximately 1 L, worsening BUN/creatinine 66 /3.74. Will discuss with nephrology regarding dialysis though there is no acute indication. WBC count slightly improved to 15.2. Patient developed A. fib with RVR yesterday, started on Cardizem infusion after bolus. Will DC Lovenox for DVT prophylaxis and start on IV heparin for persistent A. fib. 01/19: Patient continues on heparin and Cardizem infusion. WBC count slightly improved. Urine output increased 2 L in 12 hours last evening. Patient continues in A. fib but rate controlled will transition to p.o.. 01/20: T-max 101.0 Cardizem has been transition to p.o. 30 mg 4 times daily. The patient continues to fail CPAP trials. Urine output continues to increase. Continue continued improvement in WBC count. No change in neurological status , despite being off sedation greater than 48 hours continue to monitor. 01/21: Late entry note patient seen approximately at 11 AM .afebrile. Patient remains uncertain responsive despite> than 48 hours of discontinuation of Versed however patient noted to have an elevated creatinine so significantly less clearance of the prolonged Versed infusion stat labs being obtained ammonia level cortisol level. Neurology also has been consulted. Stat CT of the head obtained revealed abnormality in the left parietal occipital region, heparin placed on hold. Stat MRI is pending. Patient tolerating CPAP trials today greater than 2-1/2 hours thus far. 01/22: Neuro assessment performed earlier this a.m. patient has spontaneous eye opening moving head responding to pain , noted visual tracking. Repeat CT head obtained this a.m. per neurology recommendations, noted unchanged. Inability to obtain MRI secondary to pacemaker. EEG results are pending .maintain systolic blood pressure less than 140 PRN antihypertensives initiated. Carvedilol resumed. Echo pending. Extensive discussion with family at bedside patient's and children medical status update given all questions answered. 01/23: Afebrile .No acute change overnight. Systolic blood pressure being maintained less than 140. Carotid ultrasound is pending. Patient noted to be hyponatremic free water flushes added to medication regimen. CPAP trials continued. 01/24: Remains intubated off all sedation remains severely encephalopathic. 128/ 3.2 today. Nonoliguric. Sodium 159. Started on quarter normal saline at 120 femoral per hour. Potassium getting replaced. Discussed worsening renal function with Dr. Crandall nephrology. Neurosurgery has seen for left hemorrhagic infarct continue conservative management 01/25: Remains on quarter normal saline 125 cc hours with free water 200 cc p.o. every 6 hours per NG tube. Arousable and follows commands more weakly in the left upper and lower extremity. Tolerating tube feeds at goal. SUBJECTIVE: 01/26: Afebrile. Resting in bed in no acute distress. Heart rate controlled. Lasted approximately 6-8 hours on CPAP trial yesterday. Will attempt today after gentle diuresis Objective Vital Signs / I&O: Vital Signs 01/25/18 07:00 01/25/18 07:24 01/25/18 07:30 Temperature Pulse Rate 60 60 Respiratory Rate 18 17 26 H Blood Pressure 122/58 L 153/69 H Pulse Oximetry 99 98 99 01/25/18 08:00 01/25/18 08:31 01/25/18 09:00 Temperature 99.3 F Pulse Rate 61 61 59 L Respiratory Rate 26 H 26 H 25 H Blood Pressure 151/67 H 157/70 H Pulse Oximetry 99 100 100 01/25/18 09:01 01/25/18 09:30 01/25/18 09:33 Temperature Pulse Rate 59 L 60 60 Respiratory Rate 24 23 23 Blood Pressure 140/64 145/67 H 138/65 Pulse Oximetry 100 99 99 01/25/18 10:00 01/25/18 10:30 01/25/18 11:00 Temperature Pulse Rate 59 L 60 62 Respiratory Rate 32 H 33 H 34 H Blood Pressure 132/61 127/60 132/63 Pulse Oximetry 99 98 99 01/25/18 11:02 01/25/18 11:30 01/25/18 12:00 Temperature 99.4 F Pulse Rate 61 60 65 Respiratory Rate 30 H 23 30 H Blood Pressure 132/62 131/62 Pulse Oximetry 98 98 98 01/25/18 12:30 01/25/18 13:00 01/25/18 13:30 Temperature Pulse Rate 65 64 66 Respiratory Rate 25 H 24 20 Blood Pressure 131/85 143/65 H 123/56 L Pulse Oximetry 99 99 100 01/25/18 14:00 01/25/18 14:30 01/25/18 15:00 Temperature Pulse Rate 61 63 60 Respiratory Rate 25 H 27 H 28 H Blood Pressure 120/58 L 139/66 128/60 Pulse Oximetry 98 99 98 01/25/18 15:05 01/25/18 15:06 01/25/18 15:30 Temperature Pulse Rate 60 60 Respiratory Rate 28 H 29 H 23 Blood Pressure 125/59 L Pulse Oximetry 98 98 01/25/18 16:00 01/25/18 16:30 01/25/18 17:00 Temperature 99.3 F Pulse Rate 60 65 62 Respiratory Rate 24 38 H 34 H Blood Pressure 127/59 L 137/63 Pulse Oximetry 98 98 99 01/25/18 17:01 01/25/18 17:30 01/25/18 18:00 Temperature Pulse Rate 68 66 63 Respiratory Rate 35 H 29 H 24 Blood Pressure 136/58 L 152/66 H 141/65 H Pulse Oximetry 99 99 100 01/25/18 18:30 01/25/18 19:00 01/25/18 19:24 Temperature 99 F Pulse Rate 61 60 60 Respiratory Rate 26 H 23 21 Blood Pressure 144/65 H 152/67 H 140/66 Pulse Oximetry 100 100 100 01/25/18 19:31 01/25/18 19:35 01/25/18 20:00 Temperature Pulse Rate 60 61 60 Respiratory Rate 26 H 23 21 Blood Pressure 144/65 H 147/66 H Pulse Oximetry 100 100 100 01/25/18 20:19 01/25/18 20:30 01/25/18 21:00 Temperature Pulse Rate 62 60 60 Respiratory Rate 23 20 20 Blood Pressure 141/63 H 137/65 130/63 Pulse Oximetry 100 99 99 01/25/18 21:30 01/25/18 22:00 01/25/18 22:30 Temperature Pulse Rate 60 60 60 Respiratory Rate 19 18 20 Blood Pressure 130/63 119/58 L 138/63 Pulse Oximetry 98 99 100 01/25/18 23:00 01/25/18 23:28 01/25/18 23:31 Temperature Pulse Rate 60 62 Respiratory Rate 19 23 27 H Blood Pressure 129/60 132/62 Pulse Oximetry 100 100 100 01/26/18 00:00 01/26/18 00:31 01/26/18 01:00 Temperature 98.8 F Pulse Rate 61 60 60 Respiratory Rate 26 H 27 H 26 H Blood Pressure 137/63 143/64 H 124/58 L Pulse Oximetry 99 98 98 01/26/18 01:30 01/26/18 02:00 01/26/18 02:30 Temperature Pulse Rate 64 62 62 Respiratory Rate 30 H 28 H 25 H Blood Pressure 130/59 L 133/64 131/60 Pulse Oximetry 99 99 99 01/26/18 03:00 01/26/18 03:03 01/26/18 03:30 Temperature Pulse Rate 65 61 60 Respiratory Rate 28 H 25 H 19 Blood Pressure 138/65 128/59 L Pulse Oximetry 99 96 01/26/18 04:00 01/26/18 04:20 01/26/18 04:30 Temperature 97.9 F Pulse Rate 60 60 64 Respiratory Rate 20 23 25 H Blood Pressure 144/64 H 145/66 H 142/60 H Pulse Oximetry 98 100 100 01/26/18 06:00 Temperature Pulse Rate 60 Respiratory Rate Blood Pressure Pulse Oximetry Intake & Output 01/25/18 01/25/18 01/26/18 06:59 18:59 06:59 Intake Total 1483 / 1483 2646 / 2646 2632.625 / 2632.625 Output Total 950 / 950 1000 / 1000 1100 / 1100 Balance 533 / 533 1646 / 1646 1532.625 / 1532.625 Weight 85.4 kg 85 kg Intake: IV 200 / 200 1200 / 1200 1309.625 / 1309.625 Sodium Chloride 23.4% Inj 38.5 1000 / 1000 1009.625 / 1009.625 MEQ In Sterile Water for Inj 1, 000 ML @ 125 mls/hr IV.CONT . Q8H5M BRIANNA Rx#:[id number] Flexbumin 25% Inj 100 ML @ 60 200 / 200 200 / 200 200 / 200 mls/hr IV.SIG Q6H BRIANNA Rx#: [id number] Maxipime Inj 2,000 MG In NS Inj 100 / 100 100 ML @ 200 mls/hr IV.SIG Q24H BRIANNA Rx#:[id number] Tube Feeding 533 / 533 516 / 516 573 / 573 Tube Irrigant 180 / 180 Water Bolus Amount 750 / 750 750 / 750 750 / 750 Output: Urine 950 / 950 1100 / 1100 Urine Amount (Catheter) 1000 / 1000 Indwelling Urethral Catheter 1000 / 1000 Other: Date of Last Bowel Movement 01/24/18 01/24/18 # Bowel Movements 0 Result Diagrams: 01/26/18 04:26 01/26/18 04:26 Other Results: Microbiology 01/20/18 05:51 Blood - Peripheral Aerobic Blood Culture - Final No growth in 5 days 01/20/18 05:51 Blood - Peripheral Anaerobic Blood Culture - Final No growth in 5 days 01/20/18 06:01 Blood - Peripheral Aerobic Blood Culture - Final No growth in 5 days 01/20/18 06:01 Blood - Peripheral Anaerobic Blood Culture - Final No growth in 5 days 01/16/18 08:20 Blood - Peripheral Aerobic Blood Culture - Final Pseudomonas aeruginosa 01/16/18 08:20 Blood - Peripheral Anaerobic Blood Culture - Final No growth in 5 days 01/16/18 08:05 Blood - Peripheral Aerobic Blood Culture - Final Pseudomonas aeruginosa 01/16/18 08:05 Blood - Peripheral Anaerobic Blood Culture - Final Pseudomonas aeruginosa 01/16/18 06:28 Catheterized Urine Urine Culture - Final Pseudomonas aeruginosa Imaging: Chest X-Ray 01/16/18 00:00 CONCLUSION: 1. Interval intubation. 2. Placement of right internal jugular central venous line with no pneumothorax. 3. Streaky opacity remains at the lung bases without significant change. Abdomen/Pelvis CT 01/16/18 04:21 CONCLUSION: 1. Bilateral ureteral stents are in place and there is mild distention of the collecting systems bilaterally. Both kidneys enhance heterogeneously. 2. 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 Chest X-Ray 01/16/18 04:21 CONCLUSION: Stable mildly enlarged cardiac silhouette. No acute abnormality is identified. Chest X-Ray 01/16/18 15:20 CONCLUSION: Cardiomegaly with prominence of the interstitial markings likely related to mild edema. Chest X-Ray 01/17/18 06:00 CONCLUSION: Stable chest x-ray with mild bibasilar opacity representing either atelectasis or consolidation. Chest X-Ray 01/18/18 06:00 CONCLUSION: Stable chest x-ray with mild bibasilar opacity. Chest X-Ray 01/20/18 04:00 CONCLUSION: Improvement in the areas of basilar consolidation. Head CT 01/21/18 12:18 CONCLUSION: 1. Abnormal left parietal occipital region. MRI suggested. . Head CT 01/22/18 05:00 CONCLUSION: 1. No significant interval change. 2. Stable large 6.1 x 3.9 cm left occipital abnormality, as above. Differential considerations include mass versus evolving hemorrhagic infarct. Consider contrast enhanced MRI examination for further characterization. . Carotid Doppler Study 01/23/18 00:00 CONCLUSION: 1. Right Internal Carotid Artery: Findings indicate <50% stenosis. 2. Left Internal Carotid Artery: Findings indicate 50-69% stenosis. This is likely in the higher aspect of this range. Chest X-Ray 01/23/18 04:00 CONCLUSION: Stable appearance of the chest. Chest X-Ray 01/26/18 06:00 CONCLUSION: No significant interval change with mild bilateral pulmonary parenchymal opacity. Objective Remarks: GENERAL: Elderly 82-year-old male who is encephalopathic currently intubated SKIN: Poorly perfused. Moderate bruising noted bilateral upper and lower extremities HEENT: Atraumatic. Normocephalic. Pupils equal and round. edentulous. Intubated NECK: Trachea midline. No JVD. CARDIO: A tachycardic, RR. S1, S2. No S4. Left upper chest pacemaker in place. RESP: Air entry equal bilaterally with bilateral crackles. No wheezes or rhonchi ABD: +BS, soft, non-tender, nondistended. Do not appreciate any flank tenderness on deep palpation EXT: Extremities without clubbing, cyanosis, or edema. Poorly perfused NEURO: Intubated, follows commands. Strength 5 out of 5 right upper elixir. 4- 5 left upper lower extremity. Nods head appropriately questions. Assessment and Plan - Assessment and Plan Plan: NEURO/PSYCH: Left parieto-occipital hemorrhagic infarct versus mass versus abscess -Midazolam discontinued 01/18 , still unresponsive-to pain. Currently off all sedation off. -01/22, CT brain-abnormality left parietal occipital region. 01/23 large 6.1 x 3.9 cm left occipital abnormality, probable hemorrhagic infarct Followed by Dr. Kemp/neurology -Neurosurgery consulted for possible hemorrhagic infarct left parieto- occipital. Recommend repeat CT brain in 2 weeks with contrast if able cannot rule out mass lesion or abscess into continue conservative management -Altered mental status/encephalopathy secondary to metabolic encephalopathy and severe sepsis and acute stroke -Continue sedation vacation -Trend ammonia level -Has mild midline shift keep sodium 145-150. Currently 150 -Holding escitalopram 10 mg daily/home medication for depression -Acetaminophen 650 mg every 6 hours as needed fever RESP: Bronchiectasis/Restrictive lung disease/COPD, chronically on 2L of supplemental O2 Obstructive sleep apnea on CPAP at night Acute hypoxemic respiratory failure -Emergently intubated and placed on mechanical ventilation for worsening metabolic acidosis altered mental status and hypoxia -PRVC/AC, Ventilator bundle -Albuterol/ipratropium aerosols every 4 hours with albuterol aerosols every 2 hours as needed -Yesterday tolerate 68 hours CPAP trials. Intermittently tachypneic on attempt. CV: CHF/systolic Hyperlipidemia HTN Atrial fibrillation currently rate control AAA/Thoracic aortic aneurysm -Developed A. fib with RVR 01/17/2018. Diltiazem 30 mg 4 times daily initiated. Carvedilol 12.5 twice daily. Currently holding amlodipine 10 mg daily -Currently rate controlled but remains in A. fib, off IV heparin due to hemorrhagic infarct -s/p Normal saline IV fluids 4L bolus since ICU admission -Diuresis per nephrology. Quarter normal saline force free water replacement will decrease to 75 cc an hour with free water flushes 100 cc every 6 hours. Scheduled for 25 g IV every 6 hours until 01/26 at 1500 hrs. -Keep MAP > 65, normal and vasopressin discontinued 01/18 -2D echo 07/24/17: Estimated EF 45-50%, abnormal LV diastolic function, mild to moderate AR -Currently on atorvastatin 10 mg daily for hyperlipidemia GI: Elevated transaminases -Tube feeds with Nepro 50 cc an hour, Lansoprazole for GI prophylaxis -Bowel regimen with docusate sodium/senna 1 tablet twice daily, polythene glycol 17 g twice daily and lactulose 30 cc twice daily Renal/: History meatal stenosis BPH Status post recent bilateral ureteroscopy suspicious for recurrent urothelial cancer involving both ureteral orifices. Status post recent right ureteroscopy with laser lithotripsy of distal ureteral calculus Status post bilateral ureteral stent placement Acute kidney injury likely secondary to hypoperfusion/hypotension -Monitor renal function closely. Prince catheter. Patient's previous indwelling catheter was removed by Dr. Feliciano 01/16/18 -Urology Dr. Feliciano is following -Nephrology Dr. Duarte following for for worsening oliguric renal failure creatinine Monitor for need for hemodialysis -CT of abdomen pelvis on admission showed bilateral ureteral stents are in place and there is mild distention of the collecting systems bilaterally. Continue tamsulosin 0.4 mg daily ID: Pseudomonas bacteremia/urosepsis -Antibiotics continue cefepime -Blood urine and sputum cultures. Blood culture growing gram-negative rods and 3 out of 4 bottles-pseudomonas growing -ID consulted-Dr. Foster following -urine culture Pseudomonas HEME: Noninvasive low-grade papillary urethrothelial carcinoma Normocytic anemia Leukocytosis -Monitor CBC, coags -No indication for transfusion of blood products at this time ENDO/FEN: Hypernatremia Hypopotassemia -Upon admission ,hyperkalemia treatment with IV insulin, IV bicarb, IV calcium, breathing treatment and Kayexalate -SSI with aspart insulin every 6 hours low regimen Received 50 mEq potassium chloride by tube x1 now. Recheck in a.m. Continue free water to 100 cc every 6 hours" normal saline 755 cc an hour PROPH: -Bilateral lower extremity SCDs. No pharmacological DVT pharmacologic prophylaxis at this time. Lansoprazole LINES: Utilize peripheral IV. Central line if indicated -Right IJ central line placed 01/16/2018. Respiratory therapist placed art line 01/16/18-central line and arterial line discontinued 01/20 Palliative care has been consulted to define goals of care Level 3 follow-up Code Status: Full code Discussed Condition With: Patient. Family member at bedside. Care plan discussed and all questions answered
--- NOTE | 2018-01-26 08:13 | P.PNNEU ---
Subjective Active Medications: Active Medications Acetaminophen (Tylenol) 650 mg PO Q6H PRN PRN Reason: Temp > 100.4 Albuterol (Albuterol Neb (Prn)) 2.5 mg NEB Q2HR NEB PRN PRN Reason: DYSPNEA Albuterol (Duoneb Neb (Nisha)) 1 ampul NEB Q4HR NEB [facility] Last Admin: 01/26/18 07:14 Dose: 1 ampul Amlodipine Besylate (Norvasc) 10 mg PO DAILY [facility] Last Admin: 01/16/18 09:19 Dose: 10 mg Artificial Tears (Tears Naturale Opth Drops) 1 drop EACH EYE Q8H [facility] Atorvastatin Calcium (Lipitor) 10 mg PO DAILY [facility] Last Admin: 01/25/18 08:34 Dose: 10 mg Bisacodyl (Dulcolax Supp) 10 mg RECTAL DAILY PRN PRN Reason: SEVERE CONSITIPATION Carvedilol (Coreg) 12.5 mg PO BID [facility] Last Admin: 01/25/18 20:15 Dose: 12.5 mg Chlorhexidine Gluconate (Peridex 0.12% Oral Kit) 15 ml OROPHARYNG BID@0800, 2000 [facility] Last Admin: 01/25/18 20:15 Dose: 15 ml Dextrose (D50w Vial) 50 ml IV.PUSH UNSCH PRN PRN Reason: PER HYPOGLYCEMIA PROTOCOL Diltiazem HCl (Cardizem) 30 mg PO QID [facility] Last Admin: 01/25/18 20:15 Dose: 30 mg Escitalopram Oxalate (Lexapro) 10 mg PO DAILY [facility] Last Admin: 01/16/18 09:18 Dose: 10 mg Gabapentin (Neurontin) 300 mg PO BID [facility] Last Admin: 01/16/18 09:19 Dose: 300 mg Glucagon (Glucagon Inj) 1 mg OTHER PRN PRN PRN Reason: for Hypoglycemia Protocol Hydralazine HCl (Apresoline Inj) 10 mg IV.PUSH Q1H PRN PRN Reason: SEE LABEL COMMENTS Propofol (Diprivan 1000 Mg/100 Ml Inj) 1,000 mg in 100 mls @ 2.784 mls/hr IV.CONT TITRATE PRN; Protocol PRN Reason: Per Protocol Cefepime HCl 2,000 mg/ Sodium (Chloride) 100 mls @ 200 mls/hr IV.SIG Q24H [facility] Last Infusion: 01/26/18 04:36 Dose: Infused Sodium Chloride 38.5 meq/ (Sterile Water) 1,009.625 mls @ 75 mls/hr IV.CONT .[id number] [facility] Last Admin: 01/26/18 01:47 Dose: 125 mls/hr Albumin Human (Flexbumin 25% Inj) 100 mls @ 60 mls/hr IV.SIG Q6H [facility] Stop: 01/26/18 15:00 Last Infusion: 01/26/18 04:36 Dose: Infused Insulin Aspart (Novolog Insulin Correctional Sugar Inj) 0 unit SQ Q6HR [facility]; Protocol Last Admin: 01/26/18 05:56 Dose: Not Given Labetalol HCl (Trandate Inj) 10 mg IV.PUSH Q4H PRN PRN Reason: SEE LABEL COMMENTS Last Admin: 01/24/18 01:45 Dose: 10 mg Lactulose (Lactulose Liq) 30 ml PO DAILY PRN PRN Reason: SEVERE CONSITIPATION Lactulose (Lactulose Liq) 30 ml PO BID [facility] Last Admin: 01/25/18 20:15 Dose: 30 ml Lansoprazole (Prevacid Solutab) 30 mg NG/OG DAILY [facility] Last Admin: 01/25/18 09:20 Dose: Not Given Miscellaneous Medication () 1 each OROPHARYNG 0000,0400,1200,1600 [facility] Last Admin: 01/26/18 04:35 Dose: 1 each Ondansetron HCl (Zofran Inj) 4 mg IV.PUSH Q6H PRN PRN Reason: NAUSEA OR VOMITING Polyethylene Glycol (Miralax) 17 gm PO BID [facility] Senna/Docusate Sodium (Bel-Colace) 1 tab PO BID [facility] Last Admin: 01/25/18 20:15 Dose: 1 tab Sennosides (Senokot) 17.2 mg PO Q12H PRN PRN Reason: Moderate Constipation Sodium Chloride (Ns Flush) 2 ml IV.FLUSH BID [facility] Last Admin: 01/25/18 20:15 Dose: 2 ml Sodium Chloride (Ns Flush) 2 ml IV.FLUSH PRN PRN PRN Reason: FLUSH AFTER USING IV ACCESS Last Admin: 01/24/18 17:56 Dose: 2 ml Sterile Water (Free Water) 100 ml NG/OG Q6H [facility] Last Admin: 01/26/18 06:57 Dose: 100 ml Tamsulosin HCl (Flomax) 0.4 mg PO HS [facility] Last Admin: 01/25/18 20:15 Dose: 0.4 mg Allergies/Adverse Reactions: Allergies Allergy/AdvReac Type Severity Reaction Status Date / Time No Known Allergies Allergy Verified 01/02/18 12:33 Physical Exam Vital signs: Vital Signs 01/25/18 08:31 01/25/18 09:00 01/25/18 09:01 Temperature Pulse Rate 61 59 L 59 L Respiratory Rate 26 H 25 H 24 Blood Pressure 157/70 H 140/64 Pulse Oximetry 100 100 100 01/25/18 09:30 01/25/18 09:33 01/25/18 10:00 Temperature Pulse Rate 60 60 59 L Respiratory Rate 23 23 32 H Blood Pressure 145/67 H 138/65 132/61 Pulse Oximetry 99 99 99 01/25/18 10:30 01/25/18 11:00 01/25/18 11:02 Temperature Pulse Rate 60 62 61 Respiratory Rate 33 H 34 H 30 H Blood Pressure 127/60 132/63 Pulse Oximetry 98 99 98 01/25/18 11:30 01/25/18 12:00 01/25/18 12:30 Temperature 99.4 F Pulse Rate 60 65 65 Respiratory Rate 23 30 H 25 H Blood Pressure 132/62 131/62 131/85 Pulse Oximetry 98 98 99 01/25/18 13:00 01/25/18 13:30 01/25/18 14:00 Temperature Pulse Rate 64 66 61 Respiratory Rate 24 20 25 H Blood Pressure 143/65 H 123/56 L 120/58 L Pulse Oximetry 99 100 98 01/25/18 14:30 01/25/18 15:00 01/25/18 15:05 Temperature Pulse Rate 63 60 60 Respiratory Rate 27 H 28 H 28 H Blood Pressure 139/66 128/60 Pulse Oximetry 99 98 01/25/18 15:06 01/25/18 15:30 01/25/18 16:00 Temperature 99.3 F Pulse Rate 60 60 Respiratory Rate 29 H 23 24 Blood Pressure 125/59 L 127/59 L Pulse Oximetry 98 98 98 01/25/18 16:30 01/25/18 17:00 01/25/18 17:01 Temperature Pulse Rate 65 62 68 Respiratory Rate 38 H 34 H 35 H Blood Pressure 137/63 136/58 L Pulse Oximetry 98 99 99 01/25/18 17:30 01/25/18 18:00 01/25/18 18:30 Temperature Pulse Rate 66 63 61 Respiratory Rate 29 H 24 26 H Blood Pressure 152/66 H 141/65 H 144/65 H Pulse Oximetry 99 100 100 01/25/18 19:00 01/25/18 19:24 01/25/18 19:31 Temperature 99 F Pulse Rate 60 60 60 Respiratory Rate 23 21 26 H Blood Pressure 152/67 H 140/66 144/65 H Pulse Oximetry 100 100 100 01/25/18 19:35 01/25/18 20:00 01/25/18 20:19 Temperature Pulse Rate 61 60 62 Respiratory Rate 23 21 23 Blood Pressure 147/66 H 141/63 H Pulse Oximetry 100 100 100 01/25/18 20:30 01/25/18 21:00 01/25/18 21:30 Temperature Pulse Rate 60 60 60 Respiratory Rate 20 20 19 Blood Pressure 137/65 130/63 130/63 Pulse Oximetry 99 99 98 01/25/18 22:00 01/25/18 22:30 01/25/18 23:00 Temperature Pulse Rate 60 60 60 Respiratory Rate 18 20 19 Blood Pressure 119/58 L 138/63 129/60 Pulse Oximetry 99 100 100 01/25/18 23:28 01/25/18 23:31 01/26/18 00:00 Temperature 98.8 F Pulse Rate 62 61 Respiratory Rate 23 27 H 26 H Blood Pressure 132/62 137/63 Pulse Oximetry 100 100 99 01/26/18 00:31 01/26/18 01:00 01/26/18 01:30 Temperature Pulse Rate 60 60 64 Respiratory Rate 27 H 26 H 30 H Blood Pressure 143/64 H 124/58 L 130/59 L Pulse Oximetry 98 98 99 01/26/18 02:00 01/26/18 02:30 01/26/18 03:00 Temperature Pulse Rate 62 62 65 Respiratory Rate 28 H 25 H 28 H Blood Pressure 133/64 131/60 138/65 Pulse Oximetry 99 99 99 01/26/18 03:03 01/26/18 03:30 01/26/18 04:00 Temperature 97.9 F Pulse Rate 61 60 60 Respiratory Rate 25 H 19 20 Blood Pressure 128/59 L 144/64 H Pulse Oximetry 96 98 01/26/18 04:20 01/26/18 04:30 01/26/18 06:00 Temperature Pulse Rate 60 64 60 Respiratory Rate 23 25 H Blood Pressure 145/66 H 142/60 H Pulse Oximetry 100 100 01/26/18 07:14 Temperature Pulse Rate 62 Respiratory Rate 21 Blood Pressure Pulse Oximetry 100 Intake & Output 01/25/18 01/26/18 01/26/18 18:59 06:59 18:59 Intake Total 2646 / 2646 2632.625 / 2632.625 Output Total 1000 / 1000 1100 / 1100 Balance 1646 / 1646 1532.625 / 1532.625 Weight 85 kg Intake: IV 1200 / 1200 1309.625 / 1309.625 Sodium Chloride 23.4% Inj 38.5 1000 / 1000 1009.625 / 1009.625 MEQ In Sterile Water for Inj 1, 000 ML @ 125 mls/hr IV.CONT . Q8H5M [facility] Rx#:[id number] Flexbumin 25% Inj 100 ML @ 60 200 / 200 200 / 200 mls/hr IV.SIG Q6H [facility] Rx#: [id number] Maxipime Inj 2,000 MG In NS Inj 100 / 100 100 ML @ 200 mls/hr IV.SIG Q24H [facility] Rx#:[id number] Tube Feeding 516 / 516 573 / 573 Tube Irrigant 180 / 180 Water Bolus Amount 750 / 750 750 / 750 Output: Urine 1100 / 1100 Urine Amount (Catheter) 1000 / 1000 Indwelling Urethral Catheter 1000 / 1000 Other: Date of Last Bowel Movement 01/24/18 01/24/18 # Bowel Movements 0 Narrative: awake alert moving all 4 ext unclear if following complex commands, looks like prob not good eye contact - Urinary Catheter Management Indwelling Urethral Catheter Cath placed during this visit: yes Reason for continuing: Chronic Urinary Retention Insertion date: 01/16/18 Insertion time: 17:30 Objective Laboratory Results - last 24 hr 01/25/18 01/25/18 01/25/18 11:39 14:30 18:19 WBC RBC Hgb Hct MCV MCH MCHC RDW Plt Count MPV Neut % (Auto) Lymph % (Auto) [place] % (Auto) Eos % (Auto) Baso % (Auto) Neut # (Auto) Lymph # (Auto) [place] # (Auto) Eos # (Auto) Baso # (Auto) WBC Differential Differential Comment Puncture Site Right radial Patient Temperature 98.6 O2 Saturation 96 ABG pH 7.44 H ABG pCO2 40 ABG pO2 107 ABG HCO3 27 H ABG O2 Content 12.5 ABG Base Excess 2.8 H ABG Methemoglobin 0.5 Mg Test Present Hemoglobin 9.1 L Carboxyhemoglobin 1.5 O2 Delivery Device Ventilator Vent Setting Cpap/[id number] Inspired O2 40 Critical Value No Sodium Potassium Chloride Carbon Dioxide Anion Gap BUN Creatinine Estimated GFR POC Glucose 136 H 150 H Random Glucose Calcium Phosphorus Magnesium Total Bilirubin AST ALT Alkaline Phosphatase Total Protein Albumin 01/25/18 01/26/18 01/26/18 23:24 04:26 04:26 WBC 14.9 H RBC 3.38 L Hgb 9.9 L Hct 29.6 L MCV 87.6 MCH 29.2 MCHC 33.3 RDW 15.5 Plt Count 193 MPV 10.4 Neut % (Auto) 84.2 H Lymph % (Auto) 7.4 L [place] % (Auto) 4.4 Eos % (Auto) 3.7 Baso % (Auto) 0.3 Neut # (Auto) 12.6 H Lymph # (Auto) 1.1 [place] # (Auto) 0.7 Eos # (Auto) 0.5 H Baso # (Auto) 0.1 WBC Differential . Differential Comment Auto diff final Puncture Site Patient Temperature O2 Saturation ABG pH ABG pCO2 ABG pO2 ABG HCO3 ABG O2 Content ABG Base Excess ABG Methemoglobin Mg Test Hemoglobin Carboxyhemoglobin O2 Delivery Device Vent Setting Inspired O2 Critical Value Sodium 151 H Potassium 3.3 L Chloride 116 H Carbon Dioxide 26.4 Anion Gap 9 BUN 106 H Creatinine 2.17 H Estimated GFR 29 L POC Glucose 131 H Random Glucose 121 H Calcium 7.8 L Phosphorus 2.7 Magnesium 3.1 H Total Bilirubin 0.8 AST 86 H ALT 133 H Alkaline Phosphatase 103 Total Protein 7.0 Albumin 3.2 L Microbiology 01/20/18 05:51 Aerobic Blood Culture - Final Blood - Peripheral No growth in 5 days Anaerobic Blood Culture - Final No growth in 5 days 01/20/18 06:01 Aerobic Blood Culture - Final Blood - Peripheral No growth in 5 days Anaerobic Blood Culture - Final No growth in 5 days Review/Management - Review/Management Plan: imp labs ok looks better fu echo and ct pacemaker sepsis likley left occipital cva some hemorrhagic component vs abcess less likley 01/23/18 he was more interactive yesterday bun 107 creat a bit better continue to hold sedatives echo and eeg neg check us carotid repeat ct no change this is likely hemorrhagic infarct afib a large abcess could be considered and i will have estela weigh in my hope is he will awaken off sedatives as he metabolic condition improves i will be out of town call dr davis over weekend if ? o/w i will fu friday ------- 01/26/18 us left some mod dz check ldl estela note seen prob hemorrhagic infarct recheck ct 10 days as dw med team i would have estela weigh in on if they think he could be anticoagulated or not ie bleeding risk asa 81 for now much better may be aphasic hard to say
[2018-01-26] MEDS: Artificial Tears Opth Drops 15 ML Bottle EACH EYE SCH ×3 (08:34→23:47)
[2018-01-26] MEDS: Chlorhexidine 0.12% Oral Kit 15 ML UDC OROPHARYNG SCH ×2 (08:34→20:23)
[2018-01-26] MEDS: dilTIAZem 30 MG Tablet PO SCH ×4 (08:35→20:24)
[2018-01-26] MEDS: Polyethylene Glycol 3350 17 GM Packet PO SCH ×2 (08:35→20:24)
[2018-01-26] MEDS: Carvedilol 12.5 MG Tablet PO SCH ×2 (08:35→20:24)
[2018-01-26 08:36] LABS: Chol/HDL Ratio 5.35 Ratio
--- NOTE | 2018-01-26 12:44 | P.PNID ---
Subjective Remarks: better neurowise awake, agitated off sedation Antibiotics: zosyn Allergies/Adverse Reactions: Allergies No Known Allergies Allergy (Verified 01/02/18 12:33) Objective Vital Signs 01/25/18 13:00 01/25/18 13:30 01/25/18 14:00 Temperature Pulse Rate 64 66 61 Respiratory Rate 24 20 25 H Blood Pressure 143/65 H 123/56 L 120/58 L Pulse Oximetry 99 100 98 01/25/18 14:30 01/25/18 15:00 01/25/18 15:05 Temperature Pulse Rate 63 60 60 Respiratory Rate 27 H 28 H 28 H Blood Pressure 139/66 128/60 Pulse Oximetry 99 98 01/25/18 15:06 01/25/18 15:30 01/25/18 16:00 Temperature 99.3 F Pulse Rate 60 60 Respiratory Rate 29 H 23 24 Blood Pressure 125/59 L 127/59 L Pulse Oximetry 98 98 98 01/25/18 16:30 01/25/18 17:00 01/25/18 17:01 Temperature Pulse Rate 65 62 68 Respiratory Rate 38 H 34 H 35 H Blood Pressure 137/63 136/58 L Pulse Oximetry 98 99 99 01/25/18 17:30 01/25/18 18:00 01/25/18 18:30 Temperature Pulse Rate 66 63 61 Respiratory Rate 29 H 24 26 H Blood Pressure 152/66 H 141/65 H 144/65 H Pulse Oximetry 99 100 100 01/25/18 19:00 01/25/18 19:24 01/25/18 19:31 Temperature 99 F Pulse Rate 60 60 60 Respiratory Rate 23 21 26 H Blood Pressure 152/67 H 140/66 144/65 H Pulse Oximetry 100 100 100 01/25/18 19:35 01/25/18 20:00 01/25/18 20:19 Temperature Pulse Rate 61 60 62 Respiratory Rate 23 21 23 Blood Pressure 147/66 H 141/63 H Pulse Oximetry 100 100 100 01/25/18 20:30 01/25/18 21:00 01/25/18 21:30 Temperature Pulse Rate 60 60 60 Respiratory Rate 20 20 19 Blood Pressure 137/65 130/63 130/63 Pulse Oximetry 99 99 98 01/25/18 22:00 01/25/18 22:30 01/25/18 23:00 Temperature Pulse Rate 60 60 60 Respiratory Rate 18 20 19 Blood Pressure 119/58 L 138/63 129/60 Pulse Oximetry 99 100 100 01/25/18 23:28 01/25/18 23:31 01/26/18 00:00 Temperature 98.8 F Pulse Rate 62 61 Respiratory Rate 23 27 H 26 H Blood Pressure 132/62 137/63 Pulse Oximetry 100 100 99 01/26/18 00:31 01/26/18 01:00 01/26/18 01:30 Temperature Pulse Rate 60 60 64 Respiratory Rate 27 H 26 H 30 H Blood Pressure 143/64 H 124/58 L 130/59 L Pulse Oximetry 98 98 99 01/26/18 02:00 01/26/18 02:30 01/26/18 03:00 Temperature Pulse Rate 62 62 65 Respiratory Rate 28 H 25 H 28 H Blood Pressure 133/64 131/60 138/65 Pulse Oximetry 99 99 99 01/26/18 03:03 01/26/18 03:30 01/26/18 04:00 Temperature 97.9 F Pulse Rate 61 60 60 Respiratory Rate 25 H 19 20 Blood Pressure 128/59 L 144/64 H Pulse Oximetry 96 98 01/26/18 04:20 01/26/18 04:30 01/26/18 05:00 Temperature Pulse Rate 60 64 76 Respiratory Rate 23 25 H 32 H Blood Pressure 145/66 H 142/60 H 144/68 H Pulse Oximetry 100 100 100 01/26/18 05:30 01/26/18 06:00 01/26/18 06:30 Temperature Pulse Rate 62 62 60 Respiratory Rate 23 24 23 Blood Pressure 134/61 142/66 H 132/88 Pulse Oximetry 100 99 100 01/26/18 07:00 01/26/18 07:10 01/26/18 07:14 Temperature Pulse Rate 64 66 62 Respiratory Rate 25 H 26 H 21 Blood Pressure 147/65 H 143/65 H Pulse Oximetry 100 100 100 01/26/18 07:18 01/26/18 07:20 01/26/18 07:30 Temperature Pulse Rate 64 67 64 Respiratory Rate 23 32 H 27 H Blood Pressure 135/65 153/67 H 139/64 Pulse Oximetry 100 100 100 01/26/18 07:40 01/26/18 07:50 01/26/18 08:00 Temperature 99.9 F H Pulse Rate 65 66 66 Respiratory Rate 31 H 33 H 35 H Blood Pressure 135/63 132/59 L 138/63 Pulse Oximetry 100 100 100 01/26/18 08:10 01/26/18 08:20 01/26/18 08:30 Temperature Pulse Rate 66 68 65 Respiratory Rate 31 H 31 H 32 H Blood Pressure 129/62 137/63 131/61 Pulse Oximetry 98 99 98 01/26/18 08:40 01/26/18 08:51 01/26/18 09:00 Temperature Pulse Rate 66 66 64 Respiratory Rate 34 H 33 H 35 H Blood Pressure 127/57 L 136/63 135/62 Pulse Oximetry 99 99 99 01/26/18 09:10 01/26/18 09:20 01/26/18 09:30 Temperature Pulse Rate 65 63 62 Respiratory Rate 36 H 32 H 29 H Blood Pressure 135/60 126/59 L 123/60 Pulse Oximetry 99 97 97 01/26/18 09:40 01/26/18 09:50 01/26/18 10:00 Temperature Pulse Rate 60 60 60 Respiratory Rate 27 H 25 H 26 H Blood Pressure 113/53 L 109/55 L 106/55 L Pulse Oximetry 96 95 95 01/26/18 10:10 01/26/18 11:00 Temperature Pulse Rate 62 62 Respiratory Rate 31 H 33 H Blood Pressure 122/59 L Pulse Oximetry 96 97 Intake & Output 01/25/18 01/26/18 01/26/18 18:59 06:59 18:59 Intake Total 2646 / 2646 2632.625 / 2632.625 1009.625 / 1009.625 Output Total 1000 / 1000 1100 / 1100 Balance 1646 / 1646 1532.625 / 7280.409 1598.625 / 1009.625 Weight 85 kg Intake: IV 1200 / 1200 1309.625 / 2586.877 1191.625 / 1009.625 Sodium Chloride 23.4% Inj 38.5 1000 / 1000 1009.625 / 5819.480 5671.625 / 1009.625 MEQ In Sterile Water for Inj 1, 000 ML @ 125 mls/hr IV.CONT . Q8H5M [facility] Rx#:[id number] Flexbumin 25% Inj 100 ML @ 60 200 / 200 200 / 200 mls/hr IV.SIG Q6H [facility] Rx#: [id number] Maxipime Inj 2,000 MG In NS Inj 100 / 100 100 ML @ 200 mls/hr IV.SIG Q24H [facility] Rx#:[id number] Tube Feeding 516 / 516 573 / 573 Tube Irrigant 180 / 180 Water Bolus Amount 750 / 750 750 / 750 Output: Urine 1100 / 1100 Urine Amount (Catheter) 1000 / 1000 Indwelling Urethral Catheter 1000 / 1000 Other: Date of Last Bowel Movement 01/24/18 01/24/18 01/24/18 # Bowel Movements 0 01/20/18 05:51 Blood - Peripheral Aerobic Blood Culture - Final No growth in 5 days 01/20/18 05:51 Blood - Peripheral Anaerobic Blood Culture - Final No growth in 5 days 01/20/18 06:01 Blood - Peripheral Aerobic Blood Culture - Final No growth in 5 days 01/20/18 06:01 Blood - Peripheral Anaerobic Blood Culture - Final No growth in 5 days Lab - Hematology Results 01/25/18 01/26/18 04:57 04:26 WBC 14.8 H 14.9 H RBC 3.59 L 3.38 L Hgb 10.5 L D 9.9 L Hct 31.7 L 29.6 L MCV 88.3 87.6 MCH 29.1 29.2 MCHC 33.0 33.3 RDW 15.3 15.5 Plt Count 209 193 MPV 10.0 10.4 Neut % (Auto) 81.7 H 84.2 H Lymph % (Auto) 8.7 L 7.4 L [place] % (Auto) 4.6 4.4 Eos % (Auto) 4.6 H 3.7 Baso % (Auto) 0.4 0.3 Neut # (Auto) 12.1 H 12.6 H Lymph # (Auto) 1.3 1.1 [place] # (Auto) 0.7 0.7 Eos # (Auto) 0.7 H 0.5 H Baso # (Auto) 0.1 0.1 WBC Differential . . Differential Comment Auto diff final Auto diff final Lab - Chemistry Results 01/25/18 01/25/18 01/25/18 04:57 11:39 18:19 Sodium 158 H* Potassium 3.1 L Chloride 122 H Carbon Dioxide 27.7 Anion Gap 8 BUN 119 H Creatinine 2.69 H Estimated GFR 23 L POC Glucose 136 H 150 H Random Glucose 155 H Calcium 7.7 L Phosphorus Magnesium Total Bilirubin 0.7 AST 94 H ALT 145 H Alkaline Phosphatase 108 Total Protein 7.0 Albumin 2.7 L Triglycerides Cholesterol LDL Cholesterol, Calc HDL Cholesterol Cholesterol/HDL Ratio 01/25/18 01/26/18 01/26/18 23:24 04:26 04:26 Sodium 151 H Potassium 3.3 L Chloride 116 H Carbon Dioxide 26.4 Anion Gap 9 BUN 106 H Creatinine 2.17 H Estimated GFR 29 L POC Glucose 131 H Random Glucose 121 H Calcium 7.8 L Phosphorus 2.7 Magnesium 3.1 H Total Bilirubin 0.8 AST 86 H ALT 133 H Alkaline Phosphatase 103 Total Protein 7.0 Albumin 3.2 L Triglycerides 109 Cholesterol 75 L LDL Cholesterol, Calc 39 HDL Cholesterol 14.0 L Cholesterol/HDL Ratio 5.35 01/26/18 11:52 Sodium Potassium Chloride Carbon Dioxide Anion Gap BUN Creatinine Estimated GFR POC Glucose 95 Random Glucose Calcium Phosphorus Magnesium Total Bilirubin AST ALT Alkaline Phosphatase Total Protein Albumin Triglycerides Cholesterol LDL Cholesterol, Calc HDL Cholesterol Cholesterol/HDL Ratio Imaging: ITS Impressions Abdomen/Pelvis CT 01/16/18 04:21 CONCLUSION: 1. Bilateral ureteral stents are in place and there is mild distention of the collecting systems bilaterally. Both kidneys enhance heterogeneously. 2. 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 01/22/18 05:00 CONCLUSION: 1. No significant interval change. 2. Stable large 6.1 x 3.9 cm left occipital abnormality, as above. Differential considerations include mass versus evolving hemorrhagic infarct. Consider contrast enhanced MRI examination for further characterization. . Carotid Doppler Study 01/23/18 00:00 CONCLUSION: 1. Right Internal Carotid Artery: Findings indicate <50% stenosis. 2. Left Internal Carotid Artery: Findings indicate 50-69% stenosis. This is likely in the higher aspect of this range. Chest X-Ray 01/26/18 06:00 CONCLUSION: No significant interval change with mild bilateral pulmonary parenchymal opacity. Physical Exam: GENERAL: awake alert agitated Off sedation SKIN: Warm and dry. no rash HEAD: Atraumatic. Normocephalic. EYES: Pupils equal and round. No scleral icterus. No injection or drainage. ENT: No nasal bleeding or discharge. Mucous membranes pink and moist. NECK: Trachea midline. No JVD. CARDIOVASCULAR: Regular rate and rhythm. RESPIRATORY: No accessory muscle use. Clear to auscultation. Breath sounds equal bilaterally. GASTROINTESTINAL: Abdomen soft, non-tender, nondistended. Hepatic and splenic margins not palpable. MUSCULOSKELETAL: Extremities without clubbing, cyanosis, or edema. No obvious deformities. : jenkins inplace with good amount of clear urine NEUROLOGICAL: awwake agitated following commands moves all 4 extremeties , R side much stronger PSYCHIATRIC: unable to assess Assessment and Plan - Plan PSAE sepsis quiroga S Septic shock with multi organ failure UTI, complicated , following urological procedure Acute VDRF ARF - GFR worse , no longer oliguric Severe encephalopathy , combination of metabolic + stroke CT with large 6.1 x 3.9 cm left occipital abnormality, as above either evolving hemorrhagic infarct or abscess not a candidate for MR (pacer) or contrasted CT (GFR 21) dw radiologist : no rad tests to further differentia; f/u CT on Friday recommeded eval'd by NS- serial images recommended change abx to levaquin to complete 14 days (stop on 01/30) dw @ b/s
--- NOTE | 2018-01-26 13:07 | P.PNPAL ---
Reason for Visit Reason for visit: a. To assist with evaluation and management of symptoms including: Encephalopathy, pain, dyspnea b. To assist medical decision maker(s) with: better understanding of current medical conditions; weighing benefits/burdens of medical treatment options; making medical treatment decisions. Subjective Subjective/Interval History: Patient seen and examined in ICU to follow up on comfort, goals w decision maker. Stable over the weekend, tolerating CPAP. Neurosurgery has signed off, rec. repeat CT in 2 weeks. Neurology cont to follow, pt w some neuro improvement, following commands/moving all 4 extremities. Some question of wether to anticoagulate vs not, r/t small hemorrhagic component. Rec. reconsult neurosurgery to opine. most recent BC no growth x 5 days. CXR no significant changes. D/w critical care, primary RN. Possible medical extubation today, however not clear if pt will have airway/swallowing deficits. Seen in room , another family member at bedside. he is alert , moving around in bed, moving right more than left. He follows simple commands, nods to some questions, though difficult to assess orientation as when asked if the woman seated near him repeatedly is his he nods No. (his is present). Moves RU, RL stronger than left. Mildly tachypneic at times. Explain vent, ICU to him- he nods as if he understands. Spoke w extensively at bedside. Review overall conditions- multiple organ systems being monitored. Review recent diagnostics. Review of possible medical extubation and possible trajectories of doing well off vent versus resp decline and possible need for reintubation. Explore alternative of de-escalation and comfort tx if pt would NOT want reintubation etc . wants REINTUBATION and continue all available treatments at this time. Possible pt may be able to participate upon extubation though not fully known how clear will be. Goals remain aggressive. Objective Vital Signs: Vital Signs 01/25/18 13:00 01/25/18 13:30 01/25/18 14:00 Temperature Pulse Rate 64 66 61 Respiratory Rate 24 20 25 H Blood Pressure 143/65 H 123/56 L 120/58 L Pulse Oximetry 99 100 98 01/25/18 14:30 01/25/18 15:00 01/25/18 15:05 Temperature Pulse Rate 63 60 60 Respiratory Rate 27 H 28 H 28 H Blood Pressure 139/66 128/60 Pulse Oximetry 99 98 01/25/18 15:06 12/09/18 15:30 01/25/18 16:00 Temperature 99.3 F Pulse Rate 60 60 Respiratory Rate 29 H 23 24 Blood Pressure 125/59 L 127/59 L Pulse Oximetry 98 98 98 01/25/18 16:30 01/25/18 17:00 01/25/18 17:01 Temperature Pulse Rate 65 62 68 Respiratory Rate 38 H 34 H 35 H Blood Pressure 137/63 136/58 L Pulse Oximetry 98 99 99 01/25/18 17:30 01/25/18 18:00 01/25/18 18:30 Temperature Pulse Rate 66 63 61 Respiratory Rate 29 H 24 26 H Blood Pressure 152/66 H 141/65 H 144/65 H Pulse Oximetry 99 100 100 01/25/18 19:00 01/25/18 19:24 01/25/18 19:31 Temperature 99 F Pulse Rate 60 60 60 Respiratory Rate 23 21 26 H Blood Pressure 152/67 H 140/66 144/65 H Pulse Oximetry 100 100 100 01/25/18 19:35 01/25/18 20:00 01/25/18 20:19 Temperature Pulse Rate 61 60 62 Respiratory Rate 23 21 23 Blood Pressure 147/66 H 141/63 H Pulse Oximetry 100 100 100 01/25/18 20:30 01/25/18 21:00 01/25/18 21:30 Temperature Pulse Rate 60 60 60 Respiratory Rate 20 20 19 Blood Pressure 137/65 130/63 130/63 Pulse Oximetry 99 99 98 01/25/18 22:00 01/25/18 22:30 01/25/18 23:00 Temperature Pulse Rate 60 60 60 Respiratory Rate 18 20 19 Blood Pressure 119/58 L 138/63 129/60 Pulse Oximetry 99 100 100 01/25/18 23:28 01/25/18 23:31 01/26/18 00:00 Temperature 98.8 F Pulse Rate 62 61 Respiratory Rate 23 27 H 26 H Blood Pressure 132/62 137/63 Pulse Oximetry 100 100 99 01/26/18 00:31 01/26/18 01:00 01/26/18 01:30 Temperature Pulse Rate 60 60 64 Respiratory Rate 27 H 26 H 30 H Blood Pressure 143/64 H 124/58 L 130/59 L Pulse Oximetry 98 98 99 01/26/18 02:00 01/26/18 02:30 01/26/18 03:00 Temperature Pulse Rate 62 62 65 Respiratory Rate 28 H 25 H 28 H Blood Pressure 133/64 131/60 138/65 Pulse Oximetry 99 99 99 01/26/18 03:03 01/26/18 03:30 01/26/18 04:00 Temperature 97.9 F Pulse Rate 61 60 60 Respiratory Rate 25 H 19 20 Blood Pressure 128/59 L 144/64 H Pulse Oximetry 96 98 01/26/18 04:20 01/26/18 04:30 01/26/18 05:00 Temperature Pulse Rate 60 64 76 Respiratory Rate 23 25 H 32 H Blood Pressure 145/66 H 142/60 H 144/68 H Pulse Oximetry 100 100 100 01/26/18 05:30 01/26/18 06:00 01/26/18 06:30 Temperature Pulse Rate 62 62 60 Respiratory Rate 23 24 23 Blood Pressure 134/61 142/66 H 132/88 Pulse Oximetry 100 99 100 01/26/18 07:00 01/26/18 07:10 01/26/18 07:14 Temperature Pulse Rate 64 66 62 Respiratory Rate 25 H 26 H 21 Blood Pressure 147/65 H 143/65 H Pulse Oximetry 100 100 100 01/26/18 07:18 01/26/18 07:20 01/26/18 07:30 Temperature Pulse Rate 64 67 64 Respiratory Rate 23 32 H 27 H Blood Pressure 135/65 153/67 H 139/64 Pulse Oximetry 100 100 100 01/26/18 07:40 01/26/18 07:50 01/26/18 08:00 Temperature 99.9 F H Pulse Rate 65 66 66 Respiratory Rate 31 H 33 H 35 H Blood Pressure 135/63 132/59 L 138/63 Pulse Oximetry 100 100 100 01/26/18 08:10 01/26/18 08:20 01/26/18 08:30 Temperature Pulse Rate 66 68 65 Respiratory Rate 31 H 31 H 32 H Blood Pressure 129/62 137/63 131/61 Pulse Oximetry 98 99 98 01/26/18 08:40 01/26/18 08:51 01/26/18 09:00 Temperature Pulse Rate 66 66 64 Respiratory Rate 34 H 33 H 35 H Blood Pressure 127/57 L 136/63 135/62 Pulse Oximetry 99 99 99 01/26/18 09:10 01/26/18 09:20 01/26/18 09:30 Temperature Pulse Rate 65 63 62 Respiratory Rate 36 H 32 H 29 H Blood Pressure 135/60 126/59 L 123/60 Pulse Oximetry 99 97 97 01/26/18 09:40 01/26/18 09:50 01/26/18 10:00 Temperature Pulse Rate 60 60 60 Respiratory Rate 27 H 25 H 26 H Blood Pressure 113/53 L 109/55 L 106/55 L Pulse Oximetry 96 95 95 01/26/18 10:10 01/26/18 11:00 Temperature Pulse Rate 62 62 Respiratory Rate 31 H 33 H Blood Pressure 122/59 L Pulse Oximetry 96 97 Intake & Output 01/25/18 01/26/18 01/26/18 18:59 06:59 18:59 Intake Total 2646 / 2646 2632.625 / 2632.625 1009.625 / 1009.625 Output Total 1000 / 1000 1100 / 1100 Balance 1646 / 1646 1532.625 / 7139.548 3229.625 / 1009.625 Weight 85 kg Intake: IV 1200 / 1200 1309.625 / 5729.621 9091.625 / 1009.625 Sodium Chloride 23.4% Inj 38.5 1000 / 1000 1009.625 / 1884.936 6436.625 / 1009.625 MEQ In Sterile Water for Inj 1, 000 ML @ 125 mls/hr IV.CONT . Q8H5M BRIANNA Rx#:[id number] Flexbumin 25% Inj 100 ML @ 60 200 / 200 200 / 200 mls/hr IV.SIG Q6H BRIANNA Rx#: [id number] Maxipime Inj 2,000 MG In NS Inj 100 / 100 100 ML @ 200 mls/hr IV.SIG Q24H BRIANNA Rx#:[id number] Tube Feeding 516 / 516 573 / 573 Tube Irrigant 180 / 180 Water Bolus Amount 750 / 750 750 / 750 Output: Urine 1100 / 1100 Urine Amount (Catheter) 1000 / 1000 Indwelling Urethral Catheter 1000 / 1000 Other: Date of Last Bowel Movement 01/24/18 01/24/18 01/24/18 # Bowel Movements 0 Physical Exam: CONSTITUTIONAL/GENERAL: This is an adequately nourished patient, alert, no distress, restless at times TUBES/LINES/DRAINS: Peripheral IV Bilat upper extremity, central line to IJ, Prince catheter, ET tube, OG tube, soft restraints bilaterally SKIN: No jaundice, rashes, or lesions. No wounds seen anteriorly. Skin warm and dry EYES: pupils equal and reactive. CARDIOVASCULAR: Irregular heart rate. A. fib viewed on bedside monitor. No murmur. pedal pulses are faint. bilateral feet warm RESPIRATORY/CHEST: Symmetric, unlabored respirations via ET tube mechanical vent. +CPAP. Scattered rhonchi. Breath sounds equal bilaterally. GASTROINTESTINAL: Abdomen soft, nondistended. Bowel sounds present. OGT clamped. GENITOURINARY: Without palpable bladder distension. Prince catheter in place. Clear yellow urine MUSCULOSKELETAL: Extremities without clubbing, cyanosis, or edema. No mottling or clubbing. NEUROLOGICAL: alert nods to questions, though unable to assess orientation. ? appropriate as he nods "no " when asked if lady seated at bedside is his ( she is his ). moves all 4 extremities, spont and to commands. GIN, LL weaker , delayed movement. PSYCHIATRIC: no obvious anxiety, though restless, moving around at times. Diagnostic Tests Laboratory: Laboratory Results - last 72 hr 01/22/18 01/24/18 01/24/18 02:46 04:37 04:37 WBC 19.5 H RBC 4.39 L Hgb 12.8 L Hct 38.7 L MCV 88.2 MCH 29.3 MCHC 33.2 RDW 15.8 Plt Count 270 MPV 10.0 Prelim Diff (Auto) Slide review pending Neut % (Auto) 79.7 H Lymph % (Auto) 9.4 [place] % (Auto) 7.4 Eos % (Auto) 3.2 Baso % (Auto) 0.3 Neut # (Auto) 15.6 H Lymph # (Auto) 1.8 [place] # (Auto) 1.4 H Eos # (Auto) 0.6 H Baso # (Auto) 0.1 WBC Differential Manual diff final Seg Neuts % (Manual) 75 H Band Neuts % (Manual) 5 Lymphocytes % (Manual) 10 Monocytes % (Manual) 4 Eosinophils % (Manual) 4 Basophils % (Manual) 1 Myelocytes % (Man) 1 H Abs Neuts (Manual) 15.8 H Differential Comment . Toxic Granulation 1+ H Platelet Estimate Normal Platelet Morphology Enlarged H Ovalocytes 1+ H Puncture Site Patient Temperature O2 Saturation ABG pH ABG pCO2 ABG pO2 ABG HCO3 ABG O2 Content ABG Base Excess ABG Methemoglobin Mg Test Hemoglobin Carboxyhemoglobin O2 Delivery Device Vent Setting Inspired O2 Critical Value Sodium 159 H* Potassium 2.9 L* Chloride 122 H Carbon Dioxide 27.8 Anion Gap 9 BUN 128 H Creatinine 3.17 H Estimated GFR 19 L POC Glucose Random Glucose 163 H Calcium 8.2 L Phosphorus 3.5 Magnesium 3.5 H Total Bilirubin AST ALT Alkaline Phosphatase Ammonia Total Protein Albumin Triglycerides Cholesterol LDL Cholesterol, Calc HDL Cholesterol Cholesterol/HDL Ratio Thiamine 137 01/24/18 01/25/18 01/25/18 04:37 04:57 04:57 WBC 14.8 H RBC 3.59 L Hgb 10.5 L D Hct 31.7 L MCV 88.3 MCH 29.1 MCHC 33.0 RDW 15.3 Plt Count 209 MPV 10.0 Prelim Diff (Auto) Neut % (Auto) 81.7 H Lymph % (Auto) 8.7 L [place] % (Auto) 4.6 Eos % (Auto) 4.6 H Baso % (Auto) 0.4 Neut # (Auto) 12.1 H Lymph # (Auto) 1.3 [place] # (Auto) 0.7 Eos # (Auto) 0.7 H Baso # (Auto) 0.1 WBC Differential . Seg Neuts % (Manual) Band Neuts % (Manual) Lymphocytes % (Manual) Monocytes % (Manual) Eosinophils % (Manual) Basophils % (Manual) Myelocytes % (Man) Abs Neuts (Manual) Differential Comment Auto diff final Toxic Granulation Platelet Estimate Platelet Morphology Ovalocytes Puncture Site Patient Temperature O2 Saturation ABG pH ABG pCO2 ABG pO2 ABG HCO3 ABG O2 Content ABG Base Excess ABG Methemoglobin Mg Test Hemoglobin Carboxyhemoglobin O2 Delivery Device Vent Setting Inspired O2 Critical Value Sodium 158 H* Potassium 3.1 L Chloride 122 H Carbon Dioxide 27.7 Anion Gap 8 BUN 119 H Creatinine 2.69 H Estimated GFR 23 L POC Glucose Random Glucose 155 H Calcium 7.7 L Phosphorus Magnesium Total Bilirubin 0.7 AST 94 H ALT 145 H Alkaline Phosphatase 108 Ammonia 29 Total Protein 7.0 Albumin 2.7 L Triglycerides Cholesterol LDL Cholesterol, Calc HDL Cholesterol Cholesterol/HDL Ratio Thiamine 01/25/18 01/25/18 01/25/18 11:39 14:30 18:19 WBC RBC Hgb Hct MCV MCH MCHC RDW Plt Count MPV Prelim Diff (Auto) Neut % (Auto) Lymph % (Auto) [place] % (Auto) Eos % (Auto) Baso % (Auto) Neut # (Auto) Lymph # (Auto) [place] # (Auto) Eos # (Auto) Baso # (Auto) WBC Differential Seg Neuts % (Manual) Band Neuts % (Manual) Lymphocytes % (Manual) Monocytes % (Manual) Eosinophils % (Manual) Basophils % (Manual) Myelocytes % (Man) Abs Neuts (Manual) Differential Comment Toxic Granulation Platelet Estimate Platelet Morphology Ovalocytes Puncture Site Right radial Patient Temperature 98.6 O2 Saturation 96 ABG pH 7.44 H ABG pCO2 40 ABG pO2 107 ABG HCO3 27 H ABG O2 Content 12.5 ABG Base Excess 2.8 H ABG Methemoglobin 0.5 Mg Test Present Hemoglobin 9.1 L Carboxyhemoglobin 1.5 O2 Delivery Device Ventilator Vent Setting [id number] Inspired O2 40 Critical Value No Sodium Potassium Chloride Carbon Dioxide Anion Gap BUN Creatinine Estimated GFR POC Glucose 136 H 150 H Random Glucose Calcium Phosphorus Magnesium Total Bilirubin AST ALT Alkaline Phosphatase Ammonia Total Protein Albumin Triglycerides Cholesterol LDL Cholesterol, Calc HDL Cholesterol Cholesterol/HDL Ratio Thiamine 01/25/18 01/26/18 01/26/18 23:24 04:26 04:26 WBC 14.9 H RBC 3.38 L Hgb 9.9 L Hct 29.6 L MCV 87.6 MCH 29.2 MCHC 33.3 RDW 15.5 Plt Count 193 MPV 10.4 Prelim Diff (Auto) Neut % (Auto) 84.2 H Lymph % (Auto) 7.4 L [place] % (Auto) 4.4 Eos % (Auto) 3.7 Baso % (Auto) 0.3 Neut # (Auto) 12.6 H Lymph # (Auto) 1.1 [place] # (Auto) 0.7 Eos # (Auto) 0.5 H Baso # (Auto) 0.1 WBC Differential . Seg Neuts % (Manual) Band Neuts % (Manual) Lymphocytes % (Manual) Monocytes % (Manual) Eosinophils % (Manual) Basophils % (Manual) Myelocytes % (Man) Abs Neuts (Manual) Differential Comment Auto diff final Toxic Granulation Platelet Estimate Platelet Morphology Ovalocytes Puncture Site Patient Temperature O2 Saturation ABG pH ABG pCO2 ABG pO2 ABG HCO3 ABG O2 Content ABG Base Excess ABG Methemoglobin Mg Test Hemoglobin Carboxyhemoglobin O2 Delivery Device Vent Setting Inspired O2 Critical Value Sodium 151 H Potassium 3.3 L Chloride 116 H Carbon Dioxide 26.4 Anion Gap 9 BUN 106 H Creatinine 2.17 H Estimated GFR 29 L POC Glucose 131 H Random Glucose 121 H Calcium 7.8 L Phosphorus 2.7 Magnesium 3.1 H Total Bilirubin 0.8 AST 86 H ALT 133 H Alkaline Phosphatase 103 Ammonia Total Protein 7.0 Albumin 3.2 L Triglycerides Cholesterol LDL Cholesterol, Calc HDL Cholesterol Cholesterol/HDL Ratio Thiamine 01/26/18 01/26/18 04:26 11:52 WBC RBC Hgb Hct MCV MCH MCHC RDW Plt Count MPV Prelim Diff (Auto) Neut % (Auto) Lymph % (Auto) [place] % (Auto) Eos % (Auto) Baso % (Auto) Neut # (Auto) Lymph # (Auto) [place] # (Auto) Eos # (Auto) Baso # (Auto) WBC Differential Seg Neuts % (Manual) Band Neuts % (Manual) Lymphocytes % (Manual) Monocytes % (Manual) Eosinophils % (Manual) Basophils % (Manual) Myelocytes % (Man) Abs Neuts (Manual) Differential Comment Toxic Granulation Platelet Estimate Platelet Morphology Ovalocytes Puncture Site Patient Temperature O2 Saturation ABG pH ABG pCO2 ABG pO2 ABG HCO3 ABG O2 Content ABG Base Excess ABG Methemoglobin Mg Test Hemoglobin Carboxyhemoglobin O2 Delivery Device Vent Setting Inspired O2 Critical Value Sodium Potassium Chloride Carbon Dioxide Anion Gap BUN Creatinine Estimated GFR POC Glucose 95 Random Glucose Calcium Phosphorus Magnesium Total Bilirubin AST ALT Alkaline Phosphatase Ammonia Total Protein Albumin Triglycerides 109 Cholesterol 75 L LDL Cholesterol, Calc 39 HDL Cholesterol 14.0 L Cholesterol/HDL Ratio 5.35 Thiamine Result Diagrams: 01/26/18 04:26 01/26/18 04:26 Microbiology: Microbiology 01/20/18 05:51 Aerobic Blood Culture - Final Blood - Peripheral No growth in 5 days Anaerobic Blood Culture - Final No growth in 5 days 01/20/18 06:01 Aerobic Blood Culture - Final Blood - Peripheral No growth in 5 days Anaerobic Blood Culture - Final No growth in 5 days Imaging: Impressions Chest X-Ray 01/26/18 06:00 CONCLUSION: No significant interval change with mild bilateral pulmonary parenchymal opacity. Procedures: 01/16 central line right IJ 01/16 intubated Assessment and Plan - Disease Oriented Problem List (1) Bladder tumor (2) Meatal stenosis (3) History of bladder cancer (4) Acute UTI (5) Acute kidney injury (6) Sepsis (7) Respiratory failure Pertinent Non-Medical Issues: Psychosocial: Born and raised in [place]. 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 Supported by , children, grandchildren as well as close friends. 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 Not clear if or when he will regain ability. Per [place] statutes his would be appropriate legal proxy. Ethical issues impacting care: No ethical issues identified. Important Contacts: Lanie Cheung [phone], cell [phone] Prognosis: This patient was initially admitted with generalized symptoms of nausea, weakness but overall not feeling well. During hospital course has had worsening sepsis, multiorgan failure. He has recent diagnoses of bladder cancer. Given advanced age, Multiorgan issues, high risk for ongoing complications and setbacks. Code Status: Full Code Plan: Legal decision maker:Pt critically ill on mech vent, unable to participate in decision-making. Not clear if or when he will regain ability. Per [place] statutes his would be appropriate legal proxy. Goals: Goals remain aggressive. wants REINTUBATION and continue all available treatments at this time. She remains hopeful he may recover enough to return home after rehab course. Possible pt may be able to participate in decision making upon extubation though not fully known how clear will be. CODE STATUS:full code SYMPTOMS: --Dyspneaintubated, currently breathing comfortably on mechanical vent. tolerating CPAP today- poss med extubation today. s/p CVA, Encephalopathy may limit weaning, may affect airway maintenance upon medical extubation if able to medically extubate. History of COPD requiring CPAP of though had not used recently due to ill fitting. -- dysphagia- potential r/t CVA ; poss med extubation today, will need ST evaluation. --Encephalopathy-multifactorial, metabolic. Multiorgan failure. Has not been on sedation for many days. slow improvement in the past several days, now following commands-- moving all 4 extremities. High risk for future CVA. --Pain-currently with no signs or symptoms of pain, potential sources would include bedbound status, recent invasive procedures, including cystoscopy. Nods No to pain. No indications for pain medication at this time. We will continue to evaluate. Palliative care will continue to follow during hospital course as condition evolves, to assist patient/decision-maker with understanding of medical conditions, weighing benefits/burdens of treatment options, for clarification of goals of treatment. Additionally will assist with any symptoms of palliative concern Attestation Attestation: To help prompt me to consider important information that might be impacting today's encounter and assessment, information from prior notes written by myself or my colleagues may have been "brought forward" into today's note. My signature on this note, however, is an attestation that I personally performed the exam, history, and/or decision-making noted today, and, unless otherwise indicated, the interactions with patient, family, and staff as well as the review of records all occurred today. I also attest that the listed assessment and stated plan reflect my best clinical judgment today based on the combination of historical information, prior notes, and today's exam/ interactions. When time spent is documented, it refers only to time spent today by the signer, or if indicated, combined time spent today by collaborating physician/nurse practitioner.
[2018-01-26] MEDS: levoFLOXacin 500 MG Tablet PO SCH (14:33)
[2018-01-26] MEDS: Senna/Docusate Sodium 8.6/50 MG Tablet PO SCH ×2 (17:00→20:24)
--- NOTE | 2018-01-26 18:17 | P.PNNP ---
Subjective Interval history: Patient remain on the vent, opening eyes, and following some commands. Physical Exam Vital signs: Vital Signs 01/25/18 18:30 01/25/18 19:00 01/25/18 19:24 Temperature 99 F Pulse Rate 61 60 60 Respiratory Rate 26 H 23 21 Blood Pressure 144/65 H 152/67 H 140/66 Pulse Oximetry 100 100 100 01/25/18 19:31 01/25/18 19:35 01/25/18 20:00 Temperature Pulse Rate 60 61 60 Respiratory Rate 26 H 23 21 Blood Pressure 144/65 H 147/66 H Pulse Oximetry 100 100 100 01/25/18 20:19 01/25/18 20:30 01/25/18 21:00 Temperature Pulse Rate 62 60 60 Respiratory Rate 23 20 20 Blood Pressure 141/63 H 137/65 130/63 Pulse Oximetry 100 99 99 01/25/18 21:30 01/25/18 22:00 01/25/18 22:30 Temperature Pulse Rate 60 60 60 Respiratory Rate 19 18 20 Blood Pressure 130/63 119/58 L 138/63 Pulse Oximetry 98 99 100 01/25/18 23:00 01/25/18 23:28 01/25/18 23:31 Temperature Pulse Rate 60 62 Respiratory Rate 19 23 27 H Blood Pressure 129/60 132/62 Pulse Oximetry 100 100 100 01/26/18 00:00 01/26/18 00:31 01/26/18 01:00 Temperature 98.8 F Pulse Rate 61 60 60 Respiratory Rate 26 H 27 H 26 H Blood Pressure 137/63 143/64 H 124/58 L Pulse Oximetry 99 98 98 01/26/18 01:30 01/26/18 02:00 01/26/18 02:30 Temperature Pulse Rate 64 62 62 Respiratory Rate 30 H 28 H 25 H Blood Pressure 130/59 L 133/64 131/60 Pulse Oximetry 99 99 99 01/26/18 03:00 01/26/18 03:03 01/26/18 03:30 Temperature Pulse Rate 65 61 60 Respiratory Rate 28 H 25 H 19 Blood Pressure 138/65 128/59 L Pulse Oximetry 99 96 01/26/18 04:00 01/26/18 04:20 01/26/18 04:30 Temperature 97.9 F Pulse Rate 60 60 64 Respiratory Rate 20 23 25 H Blood Pressure 144/64 H 145/66 H 142/60 H Pulse Oximetry 98 100 100 01/26/18 05:00 01/26/18 05:30 01/26/18 06:00 Temperature Pulse Rate 76 62 62 Respiratory Rate 32 H 23 24 Blood Pressure 144/68 H 134/61 142/66 H Pulse Oximetry 100 100 99 01/26/18 06:30 01/26/18 07:00 01/26/18 07:10 Temperature Pulse Rate 60 64 66 Respiratory Rate 23 25 H 26 H Blood Pressure 132/88 147/65 H 143/65 H Pulse Oximetry 100 100 100 01/26/18 07:14 01/26/18 07:18 01/26/18 07:20 Temperature Pulse Rate 62 64 67 Respiratory Rate 21 23 32 H Blood Pressure 135/65 153/67 H Pulse Oximetry 100 100 100 01/26/18 07:30 01/26/18 07:40 01/26/18 07:50 Temperature Pulse Rate 64 65 66 Respiratory Rate 27 H 31 H 33 H Blood Pressure 139/64 135/63 132/59 L Pulse Oximetry 100 100 100 01/26/18 08:00 01/26/18 08:10 01/26/18 08:20 Temperature 99.9 F H Pulse Rate 66 66 68 Respiratory Rate 35 H 31 H 31 H Blood Pressure 138/63 129/62 137/63 Pulse Oximetry 100 98 99 01/26/18 08:30 01/26/18 08:40 01/26/18 08:51 Temperature Pulse Rate 65 66 66 Respiratory Rate 32 H 34 H 33 H Blood Pressure 131/61 127/57 L 136/63 Pulse Oximetry 98 99 99 01/26/18 09:00 01/26/18 09:10 01/26/18 09:20 Temperature Pulse Rate 64 65 63 Respiratory Rate 35 H 36 H 32 H Blood Pressure 135/62 135/60 126/59 L Pulse Oximetry 99 99 97 01/26/18 09:30 01/26/18 09:40 01/26/18 09:50 Temperature Pulse Rate 62 60 60 Respiratory Rate 29 H 27 H 25 H Blood Pressure 123/60 113/53 L 109/55 L Pulse Oximetry 97 96 95 01/26/18 10:00 01/26/18 10:10 01/26/18 10:20 Temperature Pulse Rate 60 62 61 Respiratory Rate 26 H 31 H 31 H Blood Pressure 106/55 L 122/59 L 117/57 L Pulse Oximetry 95 96 97 01/26/18 10:30 01/26/18 10:40 01/26/18 10:50 Temperature Pulse Rate 61 62 62 Respiratory Rate 30 H 35 H 32 H Blood Pressure 118/57 L 120/57 L 118/58 L Pulse Oximetry 98 97 97 01/26/18 11:00 01/26/18 11:10 01/26/18 11:20 Temperature Pulse Rate 62 62 62 Respiratory Rate 29 H 31 H 28 H Blood Pressure 120/58 L 118/57 L 117/56 L Pulse Oximetry 97 98 99 01/26/18 11:30 01/26/18 11:40 01/26/18 11:50 Temperature Pulse Rate 61 63 62 Respiratory Rate 29 H 38 H 35 H Blood Pressure 133/62 126/58 L 123/60 Pulse Oximetry 99 99 98 01/26/18 12:00 01/26/18 12:10 01/26/18 12:20 Temperature 97.9 F Pulse Rate 63 63 64 Respiratory Rate 40 H 34 H 33 H Blood Pressure 127/61 125/60 128/62 Pulse Oximetry 98 99 98 01/26/18 12:30 01/26/18 12:40 01/26/18 12:51 Temperature Pulse Rate 61 65 63 Respiratory Rate 32 H 38 H 37 H Blood Pressure 120/58 L 120/58 L 132/62 Pulse Oximetry 98 98 98 01/26/18 13:00 01/26/18 13:10 01/26/18 13:20 Temperature Pulse Rate 61 64 63 Respiratory Rate 34 H 37 H 40 H Blood Pressure 122/57 L 129/60 128/61 Pulse Oximetry 98 99 99 01/26/18 13:30 01/26/18 13:40 01/26/18 13:50 Temperature Pulse Rate 63 61 60 Respiratory Rate 32 H 32 H 27 H Blood Pressure 127/60 129/61 120/59 L Pulse Oximetry 98 98 97 01/26/18 14:00 01/26/18 14:10 01/26/18 14:21 Temperature Pulse Rate 65 61 60 Respiratory Rate 39 H 30 H 22 Blood Pressure 120/56 L 127/59 L 112/54 L Pulse Oximetry 97 98 99 01/26/18 15:44 Temperature Pulse Rate 60 Respiratory Rate 26 H Blood Pressure Pulse Oximetry Intake & Output 01/25/18 01/26/18 01/26/18 18:59 06:59 18:59 Intake Total 2646 / 2646 2632.625 / 2632.625 3128.875 / 3128.875 Output Total 1000 / 1000 1100 / 1100 Balance 1646 / 1646 1532.625 / 9941.698 7611.875 / 3128.875 Weight 85 kg Intake: IV 1200 / 1200 1309.625 / 1907.653 1261.875 / 3128.875 Sodium Chloride 23.4% Inj 38.5 1000 / 1000 1009.625 / 5471.723 7156.875 / 3028.875 MEQ In Sterile Water for Inj 1, 000 ML @ 75 mls/hr IV.CONT . [id number] BRIANNA Rx#:[id number] Flexbumin 25% Inj 100 ML @ 60 200 / 200 200 / 200 100 / 100 mls/hr IV.SIG Q6H BRIANNA Rx#: [id number] Maxipime Inj 2,000 MG In NS Inj 100 / 100 100 ML @ 200 mls/hr IV.SIG Q24H BRIANNA Rx#:[id number] Tube Feeding 516 / 516 573 / 573 Tube Irrigant 180 / 180 Water Bolus Amount 750 / 750 750 / 750 Output: Urine 1100 / 1100 Urine Amount (Catheter) 1000 / 1000 Indwelling Urethral Catheter 1000 / 1000 Other: Date of Last Bowel Movement 01/24/18 01/24/18 01/24/18 # Bowel Movements 0 Narrative: awake alert moving all 4 ext HEENT: PABLO, Non icteric, conjunctiva pale. Neck:Supple , JVD not elevated, Lungs: Bilateral basal rales and occ. rhonchi. Abd. Soft , BS positive, distended. Ext: Moderate leg edema. Chris: following some complex commands, good eye contact - Urinary Catheter Management Indwelling Urethral Catheter Cath placed during this visit: yes Reason for continuing: Chronic Urinary Retention Insertion date: 01/16/18 Insertion time: 17:30 Assessment and Plan - Assessment (1) Acute kidney injury Code(s): N17.9 - Acute kidney failure, unspecified Status: Acute Plan: Patient with Acute kidney injury and Hyperkalemia, Urine out put is low. Most likely has ATN due to hypotension, now BP is better, K is low, on replacement. K-Lyte 50 mEq given Creatinine continue to improve, Na. is 158. BUN and creatinine improved and patient is nonoliguric Replace potassium Patient has underlying Pseudomonas infection on cefepime, repeat cultures are negative on free water via GT. Avoid Nephrotoxins. Improved mental status Neurology following. Also seen by Palliative care. Creatinine continue to improve, now 2.1, Sodium is also improving, now 151. (2) Sepsis Code(s): A41.9 - Sepsis, unspecified organism Status: Acute Plan: Blood cultures positive for Pseudomonas on cefepime (3) Acute UTI Code(s): N39.0 - Urinary tract infection, site not specified Status: Acute Plan: Has cefepime for Pseudomonas. (4) Respiratory failure Code(s): J96.90 - Respiratory failure, unspecified, unspecified whether with hypoxia or hypercapnia Status: Acute Plan: Patient is intubated on very mild sedation.
[2018-01-26] MEDS: hydrALAZINE HCl Inj 20 MG/ML Vial IV.PUSH PRN (23:47)
[2018-01-27] MEDS: Oral Hygiene Kit OROPHARYNG SCH ×3 (04:10→19:52)
[2018-01-27] MEDS: hydrALAZINE HCl Inj 20 MG/ML Vial IV.PUSH PRN ×2 (04:17→22:37)
[2018-01-27] MEDS: Sodium Chloride 23.4% Inj 38.5 MEQ in Water for Inj, Sterile 1,000 ML IV.CONT SCH (04:40)
--- NOTE | 2018-01-27 05:10 | XR ---
EXAM DATE: 01/27/2018 5:04 AM EST AGE/SEX: 82 years / Male INDICATIONS: Short of breath. CLINICAL DATA: This is the patient's subsequent encounter. Patient reports that signs and symptoms h ave been present for 1 week and indicates a pain score of 0/10. MEDICAL/SURGICAL HISTORY: . Carcinoma, bladder. Chronic obstructive pulmonary disease. Congesti ve heart failure. Sleep apnea. BPH. Arrhythmia. Renal calculi. . Thoracic and abdominal aortic aneur ysm. 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 [place] [facility] [place]. . FINDINGS: Single AP view the chest. Endotracheal tube, nasogastric tube remain in place. Cardiac pacemaker agai n seen. Cardiac silhouette enlargement is unchanged. Mild lower lung zone pulmonary opacity unchanged . CONCLUSION: No significant interval change with mild bilateral lower lung zone opacity. Electronically signed by: Ryne Alfonso MD 01/27/2018 5:09 AM EST
[2018-01-27 05:31] LABS: Baso % (Auto) 0.3 % (0.0-2.0); Eos # (Auto) 0.4 th/mm3 (0.0-0.4); Eos % (Auto) 3.6 % (0.0-4.0); Hematocrit 29.7 % (39.0-51.0); Hemoglobin 9.6 gm/dL (13.0-17.0); Lymph % (Auto) 8.4 % (9.0-44.0); Mean Corpuscular HGB Conc 32.4 % (32.0-36.0); Mean Corpuscular Hemoglobin 29.1 pg (27.0-34.0); Mean Corpuscular Volume 89.6 fL (80.0-100.0); Mono # (Auto) 0.6 th/mm3 (0.0-0.9); Mono % (Auto) 5.4 % (0.0-8.0); Neut # (Auto) 9.6 th/mm3 (1.8-7.7); Neut % (Auto) 82.3 % (16.0-70.0); Platelet Count 200 th/mm3 (150-450); Red Blood Count 3.31 mil/mm3 (4.50-5.90); Red Cell Distribution Width 15.2 % (11.6-17.2); White Blood Count 11.7 th/mm3 (4.0-11.0)
[2018-01-27 06:07] LABS: Alanine Aminotransferase 102 U/L (12-78); Albumin 3.2 g/dL (3.4-5.0); Alkaline Phosphatase 102 U/L (45-117); Anion Gap 8 meq/L (5-15); Aspartate Aminotransferase 76 U/L (15-37); Blood Urea Nitrogen 91 mg/dL (7-18); Calcium 7.7 mg/dL (8.5-10.1); Carbon Dioxide 23.7 meq/L (21.0-32.0); Chloride 115 meq/L (98-107); Glomerular Filtration Rate 33 mL/min (>89); Glucose,Random 119 mg/dL (74-106); Magnesium 2.9 mg/dL (1.5-2.5); Phosphorus 3.3 mg/dL (2.5-4.9); Sodium 147 meq/L (136-145); Total Protein 7.1 g/dL (6.4-8.2)
[2018-01-27 06:11] LABS: Potassium 4.8 meq/L (3.5-5.1)
[2018-01-27] MEDS: Insulin NovoLOG Aspart Correctional Sugar Inj SQ SCH ×3 (06:47→19:52)
--- NOTE | 2018-01-27 06:52 | P.PNCC ---
Subjective Subjective Remarks/Hospital Course: Mr. Cheung is a 82-year-old male with bladder cancer, thoracic and abdominal aortic aneurysm, Bronchiectasis, Restrictive lung disease, COPD, on 2L of supplemental O2, history of congestive heart failure, Hyperlipidemia, HTN who recently underwent recent cystoscopy with meatal dilation about 4 days ago. According to Dr. 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 He underwent laser ablation of the tumor masses with biopsy along with laser lithotripsy and extraction of the right ureteral calculus. Bilateral stents were placed. Patient came to the ER today with symptoms of UTI and sepsis, altered mental status. UA showed evidence of UTI. Patient was started on Rocephin and admitted to hospitalist service. Over the course of the day patient clinically started deteriorating hypotensive with worsening encephalopathy hardly responsive. Patient was transferred to the ICU and critical care medicine was consulted. I evaluated the patient in the ICU he is very lethargic encephalopathy. Currently received 2 L normal saline bolus and had been started on Levophed currently at 12 mcg/min. Despite this patient is hypotensive. Initial ABG showed a pH of 7.25 PCO2 50 base excess -5 now slightly worse with pH of 7.23 PCO2 52. Due to severe sepsis and metabolic acidosis patient is not a candidate for BiPAP. WBC count of on admission was 14 with left shift now has worsened to 20.4. Initial lactic acid was 2,2 repeat lactic acid is pending at this time. Patient previously was sent home with indwelling Prince by Dr. Cabrera , he removed the Prince today. Patient has been oliguric and in renal failure. Will replace the Prince for strict hourly intake output 01/17: Remains critical intubated sedated. Blood cultures all bottles growing gram-negative rods. Currently on Zosyn. Creatinine has worsened to 3, potassium is 6.2. Urine output has been marginal 10-15 mL/h. CVP is only 9. Fluid challenge with 1 L normal saline bolus and maintenance fluid 100 mL/h. Nephrology consulted, CMP at noon. Treatment for hyperkalemia ordered with IV insulin followed by dextrose, calcium, bicarb, Kayexalate and breathing treatments. 01/18: Remains critical, remains in multiorgan failure. Started on Lasix by nephrology yesterday urine output approximately 1 L, worsening BUN/creatinine 66 /3.74. Will discuss with nephrology regarding dialysis though there is no acute indication. WBC count slightly improved to 15.2. Patient developed A. fib with RVR yesterday, started on Cardizem infusion after bolus. Will DC Lovenox for DVT prophylaxis and start on IV heparin for persistent A. fib. 01/19: Patient continues on heparin and Cardizem infusion. WBC count slightly improved. Urine output increased 2 L in 12 hours last evening. Patient continues in A. fib but rate controlled will transition to p.o.. 01/20: T-max 101.0 Cardizem has been transition to p.o. 30 mg 4 times daily. The patient continues to fail CPAP trials. Urine output continues to increase. Continue continued improvement in WBC count. No change in neurological status , despite being off sedation greater than 48 hours continue to monitor. 01/21: Late entry note patient seen approximately at 11 AM .afebrile. Patient remains uncertain responsive despite> than 48 hours of discontinuation of Versed however patient noted to have an elevated creatinine so significantly less clearance of the prolonged Versed infusion stat labs being obtained ammonia level cortisol level. Neurology also has been consulted. Stat CT of the head obtained revealed abnormality in the left parietal occipital region, heparin placed on hold. Stat MRI is pending. Patient tolerating CPAP trials today greater than 2-1/2 hours thus far. 01/22: Neuro assessment performed earlier this a.m. patient has spontaneous eye opening moving head responding to pain , noted visual tracking. Repeat CT head obtained this a.m. per neurology recommendations, noted unchanged. Inability to obtain MRI secondary to pacemaker. EEG results are pending .maintain systolic blood pressure less than 140 PRN antihypertensives initiated. Carvedilol resumed. Echo pending. Extensive discussion with family at bedside patient's and children medical status update given all questions answered. 01/23: Afebrile .No acute change overnight. Systolic blood pressure being maintained less than 140. Carotid ultrasound is pending. Patient noted to be hyponatremic free water flushes added to medication regimen. CPAP trials continued. 01/24: Remains intubated off all sedation remains severely encephalopathic. 128/ 3.2 today. Nonoliguric. Sodium 159. Started on quarter normal saline at 120 femoral per hour. Potassium getting replaced. Discussed worsening renal function with Dr. Crandall nephrology. Neurosurgery has seen for left hemorrhagic infarct continue conservative management 01/25: Remains on quarter normal saline 125 cc hours with free water 200 cc p.o. every 6 hours per NG tube. Arousable and follows commands more weakly in the left upper and lower extremity. Tolerating tube feeds at goal. 01/26: Afebrile. Resting in bed in no acute distress. Heart rate controlled. Lasted approximately 6-8 hours on CPAP trial yesterday. Will attempt today after gentle diuresis SUBJECTIVE: 01/27: Jagdish PSV trial times 6 hours yesterday until became tachypneic. Still confused. Baby aspirin started yesterday by neurology. No further issues. Tolerating tube feeding. Objective Vital Signs / I&O: Vital Signs 01/26/18 07:00 01/26/18 07:10 01/26/18 07:14 Temperature Pulse Rate 64 66 62 Respiratory Rate 25 H 26 H 21 Blood Pressure 147/65 H 143/65 H Pulse Oximetry 100 100 100 01/26/18 07:18 01/26/18 07:20 01/26/18 07:30 Temperature Pulse Rate 64 67 64 Respiratory Rate 23 32 H 27 H Blood Pressure 135/65 153/67 H 139/64 Pulse Oximetry 100 100 100 01/26/18 07:40 01/26/18 07:50 01/26/18 08:00 Temperature 99.9 F H Pulse Rate 65 66 66 Respiratory Rate 31 H 33 H 35 H Blood Pressure 135/63 132/59 L 138/63 Pulse Oximetry 100 100 100 01/26/18 08:10 01/26/18 08:20 01/26/18 08:30 Temperature Pulse Rate 66 68 65 Respiratory Rate 31 H 31 H 32 H Blood Pressure 129/62 137/63 131/61 Pulse Oximetry 98 99 98 01/26/18 08:40 01/26/18 08:51 01/26/18 09:00 Temperature Pulse Rate 66 66 64 Respiratory Rate 34 H 33 H 35 H Blood Pressure 127/57 L 136/63 135/62 Pulse Oximetry 99 99 99 01/26/18 09:10 01/26/18 09:20 01/26/18 09:30 Temperature Pulse Rate 65 63 62 Respiratory Rate 36 H 32 H 29 H Blood Pressure 135/60 126/59 L 123/60 Pulse Oximetry 99 97 97 01/26/18 09:40 01/26/18 09:50 01/26/18 10:00 Temperature Pulse Rate 60 60 60 Respiratory Rate 27 H 25 H 26 H Blood Pressure 113/53 L 109/55 L 106/55 L Pulse Oximetry 96 95 95 01/26/18 10:10 01/26/18 10:20 01/26/18 10:30 Temperature Pulse Rate 62 61 61 Respiratory Rate 31 H 31 H 30 H Blood Pressure 122/59 L 117/57 L 118/57 L Pulse Oximetry 96 97 98 01/26/18 10:40 01/26/18 10:50 01/26/18 11:00 Temperature Pulse Rate 62 62 62 Respiratory Rate 35 H 32 H 29 H Blood Pressure 120/57 L 118/58 L 120/58 L Pulse Oximetry 97 97 97 01/26/18 11:10 01/26/18 11:20 01/26/18 11:30 Temperature Pulse Rate 62 62 61 Respiratory Rate 31 H 28 H 29 H Blood Pressure 118/57 L 117/56 L 133/62 Pulse Oximetry 98 99 99 01/26/18 11:40 01/26/18 11:50 01/26/18 12:00 Temperature 97.9 F Pulse Rate 63 62 63 Respiratory Rate 38 H 35 H 40 H Blood Pressure 126/58 L 123/60 127/61 Pulse Oximetry 99 98 98 01/26/18 12:10 01/26/18 12:20 01/26/18 12:30 Temperature Pulse Rate 63 64 61 Respiratory Rate 34 H 33 H 32 H Blood Pressure 125/60 128/62 120/58 L Pulse Oximetry 99 98 98 01/26/18 12:40 01/26/18 12:51 01/26/18 13:00 Temperature Pulse Rate 65 63 61 Respiratory Rate 38 H 37 H 34 H Blood Pressure 120/58 L 132/62 122/57 L Pulse Oximetry 98 98 98 01/26/18 13:10 01/26/18 13:20 01/26/18 13:30 Temperature Pulse Rate 64 63 63 Respiratory Rate 37 H 40 H 32 H Blood Pressure 129/60 128/61 127/60 Pulse Oximetry 99 99 98 01/26/18 13:40 01/26/18 13:50 01/26/18 14:00 Temperature Pulse Rate 61 60 65 Respiratory Rate 32 H 27 H 39 H Blood Pressure 129/61 120/59 L 120/56 L Pulse Oximetry 98 97 97 01/26/18 14:10 01/26/18 14:21 01/26/18 14:30 Temperature Pulse Rate 61 60 60 Respiratory Rate 30 H 22 21 Blood Pressure 127/59 L 112/54 L 111/56 L Pulse Oximetry 98 99 98 01/26/18 14:40 01/26/18 14:50 01/26/18 15:00 Temperature Pulse Rate 59 L 59 L 60 Respiratory Rate 31 H 27 H 21 Blood Pressure 119/56 L 143/65 H 143/65 H Pulse Oximetry 100 100 100 01/26/18 15:10 01/26/18 15:19 01/26/18 15:20 Temperature Pulse Rate 61 64 63 Respiratory Rate 29 H 19 18 Blood Pressure 149/70 H 129/58 L 134/58 L Pulse Oximetry 100 100 100 01/26/18 15:30 01/26/18 15:40 01/26/18 15:44 Temperature Pulse Rate 60 60 60 Respiratory Rate 18 22 26 H Blood Pressure 139/65 136/64 Pulse Oximetry 100 100 01/26/18 15:50 01/26/18 16:00 01/26/18 16:10 Temperature 99.5 F Pulse Rate 60 60 62 Respiratory Rate 18 19 23 Blood Pressure 139/63 137/64 138/61 Pulse Oximetry 99 100 100 01/26/18 16:20 01/26/18 16:30 01/26/18 16:40 Temperature Pulse Rate 64 62 62 Respiratory Rate 26 H 23 29 H Blood Pressure 134/63 132/60 136/64 Pulse Oximetry 100 99 99 01/26/18 16:51 01/26/18 17:00 01/26/18 17:10 Temperature Pulse Rate 63 63 63 Respiratory Rate 31 H 36 H 28 H Blood Pressure 144/64 H 134/64 138/63 Pulse Oximetry 100 98 98 01/26/18 17:21 01/26/18 17:30 01/26/18 17:40 Temperature Pulse Rate 63 62 65 Respiratory Rate 28 H 24 27 H Blood Pressure 137/63 124/60 127/60 Pulse Oximetry 99 98 97 01/26/18 17:50 01/26/18 18:00 01/26/18 18:10 Temperature Pulse Rate 61 62 62 Respiratory Rate 27 H 28 H 30 H Blood Pressure 123/60 127/58 L 130/60 Pulse Oximetry 98 98 98 01/26/18 18:20 01/26/18 18:30 01/26/18 18:40 Temperature Pulse Rate 60 60 60 Respiratory Rate 21 24 26 H Blood Pressure 112/57 L 126/59 L 118/58 L Pulse Oximetry 98 99 100 01/26/18 18:50 01/26/18 19:00 01/26/18 19:10 Temperature Pulse Rate 60 60 60 Respiratory Rate 23 26 H 28 H Blood Pressure 134/63 125/61 Pulse Oximetry 100 100 100 01/26/18 19:11 01/26/18 19:20 01/26/18 19:30 Temperature Pulse Rate 60 61 63 Respiratory Rate 18 25 H 25 H Blood Pressure 142/67 H 148/67 H 147/67 H Pulse Oximetry 100 100 100 01/26/18 19:40 01/26/18 19:50 01/26/18 20:00 Temperature 100 F H Pulse Rate 61 61 61 Respiratory Rate 25 H 25 H 22 Blood Pressure 145/65 H 138/65 151/67 H Pulse Oximetry 100 100 100 01/26/18 20:10 01/26/18 20:20 01/26/18 20:30 Temperature Pulse Rate 61 65 61 Respiratory Rate 30 H 29 H 30 H Blood Pressure 141/59 H 148/66 H 151/68 H Pulse Oximetry 100 100 100 01/26/18 21:00 01/26/18 21:30 01/26/18 22:00 Temperature Pulse Rate 60 60 60 Respiratory Rate 20 22 19 Blood Pressure 138/62 140/63 130/63 Pulse Oximetry 100 100 100 01/26/18 22:18 01/26/18 22:30 01/26/18 23:00 Temperature Pulse Rate 60 60 Respiratory Rate 19 22 22 Blood Pressure 135/63 Pulse Oximetry 100 100 100 01/26/18 23:01 01/26/18 23:06 01/26/18 23:31 Temperature Pulse Rate 60 60 61 Respiratory Rate 19 20 28 H Blood Pressure 140/63 152/67 H Pulse Oximetry 100 100 01/27/18 00:00 01/27/18 00:01 01/27/18 00:30 Temperature 99.6 F Pulse Rate 62 62 61 Respiratory Rate 29 H 30 H 28 H Blood Pressure 126/59 L 131/63 Pulse Oximetry 100 100 100 01/27/18 01:00 01/27/18 01:15 01/27/18 01:30 Temperature Pulse Rate 60 60 Respiratory Rate 25 H 20 20 Blood Pressure 117/56 L 114/56 L Pulse Oximetry 100 99 99 01/27/18 02:00 01/27/18 02:30 01/27/18 03:00 Temperature Pulse Rate 60 60 60 Respiratory Rate 23 22 20 Blood Pressure 117/56 L 129/60 135/65 Pulse Oximetry 99 100 100 01/27/18 03:14 01/27/18 03:30 01/27/18 04:00 Temperature 98.5 F Pulse Rate 60 60 59 L Respiratory Rate 21 22 29 H Blood Pressure 141/63 H 144/65 H Pulse Oximetry 100 100 01/27/18 04:06 01/27/18 06:00 Temperature Pulse Rate 62 Respiratory Rate 21 Blood Pressure Pulse Oximetry 100 Intake & Output 01/26/18 01/26/18 01/27/18 06:59 18:59 06:59 Intake Total 2632.625 / 2632.625 3228.875 / 3228.875 1093 / 1093 Output Total 1100 / 1100 1050 / 1050 1350 / 1350 Balance 1532.625 / 4606.889 3482.875 / 2178.875 -257 / -257 Weight 85 kg 90.2 kg Intake: IV 1309.625 / 5203.866 0361.875 / 3128.875 100 / 100 Sodium Chloride 23.4% Inj 38.5 1009.625 / 9054.824 4760.875 / 3028.875 MEQ In Sterile Water for Inj 1, 000 ML @ 75 mls/hr IV.CONT . [id number] BRIANNA Rx#:[id number] Flexbumin 25% Inj 100 ML @ 60 200 / 200 100 / 100 100 / 100 mls/hr IV.SIG Q6H BRIANNA Rx#: [id number] Maxipime Inj 2,000 MG In NS Inj 100 / 100 100 ML @ 200 mls/hr IV.SIG Q24H BRIANNA Rx#:[id number] Tube Feeding 573 / 573 100 / 100 693 / 693 Tube Irrigant 300 / 300 Water Bolus Amount 750 / 750 Output: Urine 1100 / 1100 Urine Amount (Catheter) 1050 / 1050 1350 / 1350 Indwelling Urethral Catheter 1050 / 1050 1350 / 1350 Other: Date of Last Bowel Movement 01/24/18 01/24/18 01/27/18 # Bowel Movements 1 Result Diagrams: 01/27/18 04:01 01/27/18 04:01 Other Results: Microbiology 01/20/18 05:51 Blood - Peripheral Aerobic Blood Culture - Final No growth in 5 days 01/20/18 05:51 Blood - Peripheral Anaerobic Blood Culture - Final No growth in 5 days 01/20/18 06:01 Blood - Peripheral Aerobic Blood Culture - Final No growth in 5 days 01/20/18 06:01 Blood - Peripheral Anaerobic Blood Culture - Final No growth in 5 days 01/16/18 08:20 Blood - Peripheral Aerobic Blood Culture - Final Pseudomonas aeruginosa 01/16/18 08:20 Blood - Peripheral Anaerobic Blood Culture - Final No growth in 5 days 01/16/18 08:05 Blood - Peripheral Aerobic Blood Culture - Final Pseudomonas aeruginosa 01/16/18 08:05 Blood - Peripheral Anaerobic Blood Culture - Final Pseudomonas aeruginosa 01/16/18 06:28 Catheterized Urine Urine Culture - Final Pseudomonas aeruginosa Imaging: ITS Impressions Abdomen/Pelvis CT 01/16/18 04:21 CONCLUSION: 1. Bilateral ureteral stents are in place and there is mild distention of the collecting systems bilaterally. Both kidneys enhance heterogeneously. 2. 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 01/22/18 05:00 CONCLUSION: 1. No significant interval change. 2. Stable large 6.1 x 3.9 cm left occipital abnormality, as above. Differential considerations include mass versus evolving hemorrhagic infarct. Consider contrast enhanced MRI examination for further characterization. . Carotid Doppler Study 01/23/18 00:00 CONCLUSION: 1. Right Internal Carotid Artery: Findings indicate <50% stenosis. 2. Left Internal Carotid Artery: Findings indicate 50-69% stenosis. This is likely in the higher aspect of this range. Chest X-Ray 01/27/18 06:00 CONCLUSION: No significant interval change with mild bilateral lower lung zone opacity. Objective Remarks: GENERAL: Elderly 82-year-old male currently intubated orotracheally SKIN: Poorly perfused. Moderate bruising noted bilateral upper and lower extremities HEENT: Atraumatic. Normocephalic. Pupils equal and round. edentulous. Intubated NECK: Trachea midline. No JVD. CARDIO: Tachycardic, RR. S1, S2. No S4. Left upper chest pacemaker in place. RESP: Air entry equal bilaterally with bilateral bibasilar crackles. No wheezes or rhonchi ABD: +BS, soft, non-tender, nondistended. Do not appreciate any flank tenderness on deep palpation EXT: Extremities without clubbing, cyanosis, or edema. Poorly perfused NEURO: Intubated, follows commands. Strength 4 out of 5 right upper and lower. 5-5 left upper lower extremity. Nods head appropriately intermittently to simple questions. Assessment and Plan - Assessment and Plan Plan: NEURO/PSYCH: Left parieto-occipital hemorrhagic infarct versus mass versus abscess -Midazolam discontinued 01/18 , still unresponsive-to pain. Currently off all sedation off. -01/22, CT brain-abnormality left parietal occipital region. 01/23 large 6.1 x 3.9 cm left occipital abnormality, probable hemorrhagic infarct Followed by Dr. Kemp/neurology -Neurosurgery consulted for possible hemorrhagic infarct left parieto- occipital. Recommend repeat CT brain in 2 weeks with contrast if able cannot rule out mass lesion or abscess into continue conservative management. Reconsult recommendation regarding antiplatelet or anticoagulation -Altered mental status/encephalopathy secondary to metabolic encephalopathy and severe sepsis and acute stroke -Continue sedation vacation -Trend ammonia level -Has mild midline shift keep sodium 145-150. Currently 147 -Holding escitalopram 10 mg daily/home medication for depression -Acetaminophen 650 mg every 6 hours as needed fever Continue baby aspirin 81 mg daily per neurology RESP: Bronchiectasis/Restrictive lung disease/COPD, chronically on 2L of supplemental O2 Obstructive sleep apnea on CPAP at night Acute hypoxemic respiratory failure -Emergently intubated and placed on mechanical ventilation for worsening metabolic acidosis altered mental status and hypoxia -PRVC/AC, Ventilator bundle -Albuterol/ipratropium aerosols every 4 hours with albuterol aerosols every 2 hours as needed -Yesterday tolerate 6-8 hours CPAP trials. Intermittently tachypneic on attempt. Reattempt today 01/27 CV: CHF/systolic Hyperlipidemia HTN Atrial fibrillation currently rate control AAA/Thoracic aortic aneurysm -Developed A. fib with RVR 01/17/2018. Diltiazem 30 mg 4 times daily initiated.. This is discontinued 01/27 carvedilol 12.5 twice daily. Today we will resume amlodipine at 5 mg daily -Currently rate controlled but remains in A. fib, off IV heparin due to hemorrhagic infarct -Diuresis per nephrology. Currently on free water flushes 200 cc every 6 hours. Scheduled albumin for 25 g IV every 6 hours until 01/26 at 1500 hrs. -Keep MAP > 65, normal and vasopressin discontinued 01/18 -2D echo 07/24/17: Estimated EF 45-50%, abnormal LV diastolic function, mild to moderate AR -Currently on atorvastatin 10 mg daily for hyperlipidemia GI: Elevated transaminases -Tube feeds with Nepro 50 cc an hour, Lansoprazole for GI prophylaxis -Bowel regimen with docusate sodium/senna 1 tablet twice daily, polythene glycol 17 g twice daily and lactulose 30 cc twice daily Renal/: History meatal stenosis BPH Status post recent bilateral ureteroscopy suspicious for recurrent urothelial cancer involving both ureteral orifices. Status post recent right ureteroscopy with laser lithotripsy of distal ureteral calculus Status post bilateral ureteral stent placement Acute kidney injury likely secondary to hypoperfusion/hypotension -Monitor renal function closely. Prince catheter. Patient's previous indwelling catheter was removed by Dr. Feliciano 01/16/18 -Urology Dr. Feliciano is following -Nephrology Dr. Duarte following for for worsening oliguric renal failure creatinine Monitor for need for hemodialysis -CT of abdomen pelvis on admission showed bilateral ureteral stents are in place and there is mild distention of the collecting systems bilaterally. Continue tamsulosin 0.4 mg daily ID: Pseudomonas bacteremia/urosepsis -Antibiotics continue levofloxacin. Discontinue cefepime 01/26 -Blood urine and sputum cultures. Blood culture growing gram-negative rods and 3 out of 4 bottles-pseudomonas growing -ID consulted-Dr. Foster following -urine culture Pseudomonas HEME: Noninvasive low-grade papillary urethrothelial carcinoma Normocytic anemia Leukocytosis -Monitor CBC, coags -No indication for transfusion of blood products at this time ENDO/FEN: Hypernatremia Hyper magnesium -Upon admission ,hyperkalemia treatment with IV insulin, IV bicarb, IV calcium, breathing treatment and Kayexalate -SSI with aspart insulin every 6 hours low regime - normal saline 755 cc an hour PROPH: -Bilateral lower extremity SCDs. No pharmacological DVT pharmacologic prophylaxis at this time. Lansoprazole LINES: Utilize peripheral IV. Central line if indicated -Right IJ central line placed 01/16/2018. Respiratory therapist placed art line 01/16/18-central line and arterial line discontinued 01/20 Palliative care has been consulted to define goals of care Level 3 follow-up Code Status: Full code Discussed Condition With: Son. Care plan discussed all questions answered
[2018-01-27] MEDS: amLODIPine 5 MG Tablet PO SCH (09:24)
[2018-01-27] MEDS: Carvedilol 12.5 MG Tablet PO SCH ×2 (09:24→21:00)
[2018-01-27] MEDS: Polyethylene Glycol 3350 17 GM Packet PO SCH ×2 (09:24→21:00)
[2018-01-27] MEDS: Dexmedetomidine Inj 200 MCG in Sodium Chlor 0.9% Inj 48 ML IV.CONT PRN ×2 (09:25→18:00)
[2018-01-27] MEDS: Chlorhexidine 0.12% Oral Kit 15 ML UDC OROPHARYNG SCH ×2 (09:36→20:00)
[2018-01-27] MEDS: Artificial Tears Opth Drops 15 ML Bottle EACH EYE SCH ×3 (09:36→23:00)
[2018-01-27] MEDS: Senna/Docusate Sodium 8.6/50 MG Tablet PO SCH ×2 (09:37→21:00)
[2018-01-27] MEDS ORDERED: RASS Change Order OTHER ONE (10:00)
--- NOTE | 2018-01-27 13:30 | P.PNPAL ---
Reason for Visit Reason for visit: a. To assist with evaluation and management of symptoms including: Encephalopathy, pain, dyspnea b. To assist medical decision maker(s) with: better understanding of current medical conditions; weighing benefits/burdens of medical treatment options; making medical treatment decisions. Subjective Subjective/Interval History: Patient seen and examined in ICU to follow up on comfort, goals w decision maker. Stable , tolerating CPAP for 6-8 hrs a day, limited by tachypnea. Neurosurgery has signed off, rec. repeat CT in 2 weeks. Has been started on daily aspirin for anticoagulation per neurology. Renal functions improving BUN 91/creatinine 1.96. CBC stable/unremarkable, WBC 11.7. CXR unchanged. Critical care cont diuresis, poss medical extubation in the next day or so. Precedex has been added for restlessness/agitation on [facility] vent. Seen in room no visitors present. He is sedated on precedex, calm, arouses easily to verbal and touch. Tracks me, then resumes sleeping. Moves extremities weakly localizes to touch, does not follow my commands. No apparent distress or discomfort. Observe controlled rate afib on bedside monitor, +pacer spikes. following exam, call to , NICANOR left. Objective Vital Signs: Vital Signs 01/26/18 13:10 01/26/18 13:20 01/26/18 13:30 Temperature Pulse Rate 64 63 63 Respiratory Rate 37 H 40 H 32 H Blood Pressure 129/60 128/61 127/60 Pulse Oximetry 99 99 98 01/26/18 13:40 01/26/18 13:50 01/26/18 14:00 Temperature Pulse Rate 61 60 65 Respiratory Rate 32 H 27 H 39 H Blood Pressure 129/61 120/59 L 120/56 L Pulse Oximetry 98 97 97 01/26/18 14:10 01/26/18 14:21 01/26/18 14:30 Temperature Pulse Rate 61 60 60 Respiratory Rate 30 H 22 21 Blood Pressure 127/59 L 112/54 L 111/56 L Pulse Oximetry 98 99 98 01/26/18 14:40 01/26/18 14:50 01/26/18 15:00 Temperature Pulse Rate 59 L 59 L 60 Respiratory Rate 31 H 27 H 21 Blood Pressure 119/56 L 143/65 H 143/65 H Pulse Oximetry 100 100 100 01/26/18 15:10 01/26/18 15:19 01/26/18 15:20 Temperature Pulse Rate 61 64 63 Respiratory Rate 29 H 19 18 Blood Pressure 149/70 H 129/58 L 134/58 L Pulse Oximetry 100 100 100 01/26/18 15:30 01/26/18 15:40 01/26/18 15:44 Temperature Pulse Rate 60 60 60 Respiratory Rate 18 22 26 H Blood Pressure 139/65 136/64 Pulse Oximetry 100 100 01/26/18 15:50 01/26/18 16:00 01/26/18 16:10 Temperature 99.5 F Pulse Rate 60 60 62 Respiratory Rate 18 19 23 Blood Pressure 139/63 137/64 138/61 Pulse Oximetry 99 100 100 01/26/18 16:20 01/26/18 16:30 01/26/18 16:40 Temperature Pulse Rate 64 62 62 Respiratory Rate 26 H 23 29 H Blood Pressure 134/63 132/60 136/64 Pulse Oximetry 100 99 99 01/26/18 16:51 01/26/18 17:00 01/26/18 17:10 Temperature Pulse Rate 63 63 63 Respiratory Rate 31 H 36 H 28 H Blood Pressure 144/64 H 134/64 138/63 Pulse Oximetry 100 98 98 01/26/18 17:21 01/26/18 17:30 01/26/18 17:40 Temperature Pulse Rate 63 62 65 Respiratory Rate 28 H 24 27 H Blood Pressure 137/63 124/60 127/60 Pulse Oximetry 99 98 97 01/26/18 17:50 01/26/18 18:00 01/26/18 18:10 Temperature Pulse Rate 61 62 62 Respiratory Rate 27 H 28 H 30 H Blood Pressure 123/60 127/58 L 130/60 Pulse Oximetry 98 98 98 01/26/18 18:20 01/26/18 18:30 01/26/18 18:40 Temperature Pulse Rate 60 60 60 Respiratory Rate 21 24 26 H Blood Pressure 112/57 L 126/59 L 118/58 L Pulse Oximetry 98 99 100 01/26/18 18:50 01/26/18 19:00 01/26/18 19:10 Temperature Pulse Rate 60 60 60 Respiratory Rate 23 26 H 28 H Blood Pressure 134/63 125/61 Pulse Oximetry 100 100 100 01/26/18 19:11 01/26/18 19:20 01/26/18 19:30 Temperature Pulse Rate 60 61 63 Respiratory Rate 18 25 H 25 H Blood Pressure 142/67 H 148/67 H 147/67 H Pulse Oximetry 100 100 100 01/26/18 19:40 01/26/18 19:50 01/26/18 20:00 Temperature 100 F H Pulse Rate 61 61 61 Respiratory Rate 25 H 25 H 22 Blood Pressure 145/65 H 138/65 151/67 H Pulse Oximetry 100 100 100 01/26/18 20:10 01/26/18 20:20 01/26/18 20:30 Temperature Pulse Rate 61 65 61 Respiratory Rate 30 H 29 H 30 H Blood Pressure 141/59 H 148/66 H 151/68 H Pulse Oximetry 100 100 100 01/26/18 21:00 01/26/18 21:30 01/26/18 22:00 Temperature Pulse Rate 60 60 60 Respiratory Rate 20 22 19 Blood Pressure 138/62 140/63 130/63 Pulse Oximetry 100 100 100 01/26/18 22:18 01/26/18 22:30 01/26/18 23:00 Temperature Pulse Rate 60 60 Respiratory Rate 19 22 22 Blood Pressure 135/63 Pulse Oximetry 100 100 100 01/26/18 23:01 01/26/18 23:06 01/26/18 23:31 Temperature Pulse Rate 60 60 61 Respiratory Rate 19 20 28 H Blood Pressure 140/63 152/67 H Pulse Oximetry 100 100 01/27/18 00:00 01/27/18 00:01 01/27/18 00:30 Temperature 99.6 F Pulse Rate 62 62 61 Respiratory Rate 29 H 30 H 28 H Blood Pressure 126/59 L 131/63 Pulse Oximetry 100 100 100 01/27/18 01:00 01/27/18 01:15 01/27/18 01:30 Temperature Pulse Rate 60 60 Respiratory Rate 25 H 20 20 Blood Pressure 117/56 L 114/56 L Pulse Oximetry 100 99 99 01/27/18 02:00 01/27/18 02:30 01/27/18 03:00 Temperature Pulse Rate 60 60 60 Respiratory Rate 23 22 20 Blood Pressure 117/56 L 129/60 135/65 Pulse Oximetry 99 100 100 01/27/18 03:14 01/27/18 03:30 01/27/18 04:00 Temperature 98.5 F Pulse Rate 60 60 59 L Respiratory Rate 21 22 29 H Blood Pressure 141/63 H 144/65 H Pulse Oximetry 100 100 01/27/18 04:06 01/27/18 06:00 01/27/18 07:00 Temperature Pulse Rate 62 61 Respiratory Rate 21 26 H Blood Pressure 144/65 H Pulse Oximetry 100 100 01/27/18 07:23 01/27/18 07:30 01/27/18 08:00 Temperature 99.8 F H Pulse Rate 69 68 64 Respiratory Rate 27 H 27 H 28 H Blood Pressure 162/70 H 155/67 H Pulse Oximetry 100 100 100 01/27/18 08:31 01/27/18 09:00 01/27/18 09:31 Temperature Pulse Rate 61 63 61 Respiratory Rate 22 23 24 Blood Pressure 137/63 149/65 H 167/74 H Pulse Oximetry 100 100 100 01/27/18 09:58 01/27/18 10:00 01/27/18 10:30 Temperature Pulse Rate 60 61 Respiratory Rate 20 22 22 Blood Pressure 112/53 L 154/70 H Pulse Oximetry 98 98 100 01/27/18 10:38 01/27/18 10:40 01/27/18 11:10 Temperature Pulse Rate 61 62 60 Respiratory Rate 21 21 19 Blood Pressure 148/67 H 135/64 Pulse Oximetry 100 100 Intake & Output 01/26/18 01/27/18 01/27/18 18:59 06:59 18:59 Intake Total 3228.875 / 3228.875 1093 / 1093 Output Total 1050 / 1050 1350 / 1350 Balance 2178.875 / 2178.875 -257 / -257 Weight 90.2 kg Intake: IV 3128.875 / 3128.875 100 / 100 Sodium Chloride 23.4% Inj 38.5 3028.875 / 3028.875 MEQ In Sterile Water for Inj 1, 000 ML @ 75 mls/hr IV.CONT . [id number] [facility] Rx#:[id number] Flexbumin 25% Inj 100 ML @ 60 100 / 100 100 / 100 mls/hr IV.SIG Q6H [facility] Rx#: [id number] Tube Feeding 100 / 100 693 / 693 Tube Irrigant 300 / 300 Output: Urine Amount (Catheter) 1050 / 1050 1350 / 1350 Indwelling Urethral Catheter 1050 / 1050 1350 / 1350 Other: Date of Last Bowel Movement 12/08/18 12/11/18 12/10/18 # Bowel Movements 1 Physical Exam: CONSTITUTIONAL/GENERAL: This is an adequately nourished patient, alert, no distress, restless at times TUBES/LINES/DRAINS: Peripheral IV Bilat upper extremity, central line to IJ, Prince catheter, ET tube, OG tube, soft restraints bilaterally SKIN: No jaundice, rashes, or lesions. No wounds seen anteriorly. Skin warm and dry EYES: pupils equal and reactive. CARDIOVASCULAR: Irregular heart rate. A. fib viewed on bedside monitor. No murmur. pedal pulses are faint. bilateral feet warm RESPIRATORY/CHEST: Symmetric, unlabored respirations via ET tube mechanical vent. +CPAP. Scattered rhonchi. Breath sounds equal bilaterally. GASTROINTESTINAL: Abdomen soft, nondistended. Bowel sounds present. OGT clamped. GENITOURINARY: Without palpable bladder distension. Prince catheter in place. Clear yellow urine MUSCULOSKELETAL: Extremities without clubbing, cyanosis, or edema. No mottling or clubbing. NEUROLOGICAL: alert nods to questions, though unable to assess orientation. ? appropriate as he nods "no " when asked if lady seated at bedside is his ( she is his ). moves all 4 extremities, spont and to commands. GIN, LL weaker , delayed movement. PSYCHIATRIC: no obvious anxiety, though restless, moving around at times. Diagnostic Tests Laboratory: Laboratory Results - last 72 hr 01/25/18 01/25/18 01/25/18 04:57 04:57 11:39 WBC 14.8 H RBC 3.59 L Hgb 10.5 L D Hct 31.7 L MCV 88.3 MCH 29.1 MCHC 33.0 RDW 15.3 Plt Count 209 MPV 10.0 Neut % (Auto) 81.7 H Lymph % (Auto) 8.7 L Victoria % (Auto) 4.6 Eos % (Auto) 4.6 H Baso % (Auto) 0.4 Neut # (Auto) 12.1 H Lymph # (Auto) 1.3 Victoria # (Auto) 0.7 Eos # (Auto) 0.7 H Baso # (Auto) 0.1 WBC Differential . Differential Comment Auto diff final Puncture Site Patient Temperature O2 Saturation ABG pH ABG pCO2 ABG pO2 ABG HCO3 ABG O2 Content ABG Base Excess ABG Methemoglobin Mg Test Hemoglobin Carboxyhemoglobin O2 Delivery Device Vent Setting Inspired O2 Critical Value Sodium 158 H* Potassium 3.1 L Chloride 122 H Carbon Dioxide 27.7 Anion Gap 8 BUN 119 H Creatinine 2.69 H Estimated GFR 23 L POC Glucose 136 H Random Glucose 155 H Calcium 7.7 L Phosphorus Magnesium Total Bilirubin 0.7 AST 94 H ALT 145 H Alkaline Phosphatase 108 Total Protein 7.0 Albumin 2.7 L Triglycerides Cholesterol LDL Cholesterol, Calc HDL Cholesterol Cholesterol/HDL Ratio 01/25/18 01/25/18 01/25/18 14:30 18:19 23:24 WBC RBC Hgb Hct MCV MCH MCHC RDW Plt Count MPV Neut % (Auto) Lymph % (Auto) Victoria % (Auto) Eos % (Auto) Baso % (Auto) Neut # (Auto) Lymph # (Auto) Victoria # (Auto) Eos # (Auto) Baso # (Auto) WBC Differential Differential Comment Puncture Site Right radial Patient Temperature 98.6 O2 Saturation 96 ABG pH 7.44 H ABG pCO2 40 ABG pO2 107 ABG HCO3 27 H ABG O2 Content 12.5 ABG Base Excess 2.8 H ABG Methemoglobin 0.5 Mg Test Present Hemoglobin 9.1 L Carboxyhemoglobin 1.5 O2 Delivery Device Ventilator Vent Setting [id number] Inspired O2 40 Critical Value No Sodium Potassium Chloride Carbon Dioxide Anion Gap BUN Creatinine Estimated GFR POC Glucose 150 H 131 H Random Glucose Calcium Phosphorus Magnesium Total Bilirubin AST ALT Alkaline Phosphatase Total Protein Albumin Triglycerides Cholesterol LDL Cholesterol, Calc HDL Cholesterol Cholesterol/HDL Ratio 01/26/18 01/26/18 01/26/18 04:26 04:26 04:26 WBC 14.9 H RBC 3.38 L Hgb 9.9 L Hct 29.6 L MCV 87.6 MCH 29.2 MCHC 33.3 RDW 15.5 Plt Count 193 MPV 10.4 Neut % (Auto) 84.2 H Lymph % (Auto) 7.4 L Victoria % (Auto) 4.4 Eos % (Auto) 3.7 Baso % (Auto) 0.3 Neut # (Auto) 12.6 H Lymph # (Auto) 1.1 Victoria # (Auto) 0.7 Eos # (Auto) 0.5 H Baso # (Auto) 0.1 WBC Differential . Differential Comment Auto diff final Puncture Site Patient Temperature O2 Saturation ABG pH ABG pCO2 ABG pO2 ABG HCO3 ABG O2 Content ABG Base Excess ABG Methemoglobin Mg Test Hemoglobin Carboxyhemoglobin O2 Delivery Device Vent Setting Inspired O2 Critical Value Sodium 151 H Potassium 3.3 L Chloride 116 H Carbon Dioxide 26.4 Anion Gap 9 BUN 106 H Creatinine 2.17 H Estimated GFR 29 L POC Glucose Random Glucose 121 H Calcium 7.8 L Phosphorus 2.7 Magnesium 3.1 H Total Bilirubin 0.8 AST 86 H ALT 133 H Alkaline Phosphatase 103 Total Protein 7.0 Albumin 3.2 L Triglycerides 109 Cholesterol 75 L LDL Cholesterol, Calc 39 HDL Cholesterol 14.0 L Cholesterol/HDL Ratio 5.35 01/26/18 01/26/18 01/26/18 11:52 16:55 23:39 WBC RBC Hgb Hct MCV MCH MCHC RDW Plt Count MPV Neut % (Auto) Lymph % (Auto) Victoria % (Auto) Eos % (Auto) Baso % (Auto) Neut # (Auto) Lymph # (Auto) Victoria # (Auto) Eos # (Auto) Baso # (Auto) WBC Differential Differential Comment Puncture Site Patient Temperature O2 Saturation ABG pH ABG pCO2 ABG pO2 ABG HCO3 ABG O2 Content ABG Base Excess ABG Methemoglobin Mg Test Hemoglobin Carboxyhemoglobin O2 Delivery Device Vent Setting Inspired O2 Critical Value Sodium Potassium Chloride Carbon Dioxide Anion Gap BUN Creatinine Estimated GFR POC Glucose 95 113 H 116 H Random Glucose Calcium Phosphorus Magnesium Total Bilirubin AST ALT Alkaline Phosphatase Total Protein Albumin Triglycerides Cholesterol LDL Cholesterol, Calc HDL Cholesterol Cholesterol/HDL Ratio 01/27/18 01/27/18 01/27/18 04:01 04:01 11:51 WBC 11.7 H RBC 3.31 L Hgb 9.6 L Hct 29.7 L MCV 89.6 MCH 29.1 MCHC 32.4 RDW 15.2 Plt Count 200 MPV 11.0 Neut % (Auto) 82.3 H Lymph % (Auto) 8.4 L Victoria % (Auto) 5.4 Eos % (Auto) 3.6 Baso % (Auto) 0.3 Neut # (Auto) 9.6 H Lymph # (Auto) 1.0 Victoria # (Auto) 0.6 Eos # (Auto) 0.4 Baso # (Auto) 0.0 WBC Differential . Differential Comment Auto diff final Puncture Site Patient Temperature O2 Saturation ABG pH ABG pCO2 ABG pO2 ABG HCO3 ABG O2 Content ABG Base Excess ABG Methemoglobin Mg Test Hemoglobin Carboxyhemoglobin O2 Delivery Device Vent Setting Inspired O2 Critical Value Sodium 147 H Potassium 4.8 D Chloride 115 H Carbon Dioxide 23.7 Anion Gap 8 BUN 91 H Creatinine 1.96 H Estimated GFR 33 L POC Glucose 107 Random Glucose 119 H Calcium 7.7 L Phosphorus 3.3 Magnesium 2.9 H Total Bilirubin 1.1 H AST 76 H ALT 102 H Alkaline Phosphatase 102 Total Protein 7.1 Albumin 3.2 L Triglycerides Cholesterol LDL Cholesterol, Calc HDL Cholesterol Cholesterol/HDL Ratio Result Diagrams: 01/27/18 04:01 01/27/18 04:01 Microbiology: Microbiology 01/20/18 05:51 Aerobic Blood Culture - Final Blood - Peripheral No growth in 5 days Anaerobic Blood Culture - Final No growth in 5 days 01/20/18 06:01 Aerobic Blood Culture - Final Blood - Peripheral No growth in 5 days Anaerobic Blood Culture - Final No growth in 5 days Imaging: Impressions Chest X-Ray 01/26/18 06:00 CONCLUSION: No significant interval change with mild bilateral pulmonary parenchymal opacity. Chest X-Ray 01/27/18 06:00 CONCLUSION: No significant interval change with mild bilateral lower lung zone opacity. Procedures: 01/16 central line right IJ 01/16 intubated Assessment and Plan - Disease Oriented Problem List (1) Bladder tumor (2) Meatal stenosis (3) History of bladder cancer (4) Acute UTI (5) Acute kidney injury (6) Sepsis (7) Respiratory failure Pertinent Non-Medical Issues: Psychosocial: Born and raised in [place]. 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 Supported by , children, grandchildren as well as close friends. 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 Not clear if or when he will regain ability. Per [place] statutes his would be appropriate legal proxy. Ethical issues impacting care: No ethical issues identified. Important Contacts: Lanie Cheung [phone], cell [phone] Prognosis: This patient was initially admitted with generalized symptoms of nausea, weakness but overall not feeling well. During hospital course has had worsening sepsis, multiorgan failure. He has recent diagnoses of bladder cancer. Given advanced age, Multiorgan issues, high risk for ongoing complications and setbacks. Code Status: Full Code Plan: Legal decision maker:Pt critically ill on [facility] vent, unable to participate in decision-making. Not clear if or when he will regain ability. Per [place] statutes his would be appropriate legal proxy. Goals: Goals remain aggressive. wants REINTUBATION and continue all available treatments at this time. She remains hopeful he may recover enough to return home after rehab course. Possible pt may be able to participate in decision making upon extubation though not fully known how clear will be. CODE STATUS:full code SYMPTOMS: --Dyspneaintubated, currently breathing comfortably on mechanical vent. tolerating CPAP today- poss med extubation . s/p CVA, Encephalopathy may limit weaning, may affect airway maintenance upon medical extubation if able to medically extubate. History of COPD requiring CPAP of though had not used recently due to ill fitting. -- dysphagia- potential r/t CVA ; poss med extubation , will need ST evaluation. --Encephalopathy-multifactorial, metabolic. Multiorgan failure. Has not been on sedation for many days. slow improvement in the past several days, now following commands-- moving all 4 extremities. High risk for future CVA. --Pain-currently with no signs or symptoms of pain, potential sources would include bedbound status, recent invasive procedures, including cystoscopy. Prev. Nods No to pain. No indications for pain medication at this time. We will continue to evaluate. Palliative care will continue to follow during hospital course as condition evolves, to assist patient/decision-maker with understanding of medical conditions, weighing benefits/burdens of treatment options, for clarification of goals of treatment. Additionally will assist with any symptoms of palliative concern
--- NOTE | 2018-01-27 18:50 | P.PNNP ---
Subjective Interval history: Patient seen in the afternoon, extubated, following some verbal commands, not in distress. Physical Exam Vital signs: Vital Signs 01/26/18 18:50 01/26/18 19:00 01/26/18 19:10 Temperature Pulse Rate 60 60 60 Respiratory Rate 23 26 H 28 H Blood Pressure 134/63 125/61 Pulse Oximetry 100 100 100 01/26/18 19:11 01/26/18 19:20 01/26/18 19:30 Temperature Pulse Rate 60 61 63 Respiratory Rate 18 25 H 25 H Blood Pressure 142/67 H 148/67 H 147/67 H Pulse Oximetry 100 100 100 01/26/18 19:40 01/26/18 19:50 01/26/18 20:00 Temperature 100 F H Pulse Rate 61 61 61 Respiratory Rate 25 H 25 H 22 Blood Pressure 145/65 H 138/65 151/67 H Pulse Oximetry 100 100 100 01/26/18 20:10 01/26/18 20:20 01/26/18 20:30 Temperature Pulse Rate 61 65 61 Respiratory Rate 30 H 29 H 30 H Blood Pressure 141/59 H 148/66 H 151/68 H Pulse Oximetry 100 100 100 01/26/18 21:00 01/26/18 21:30 01/26/18 22:00 Temperature Pulse Rate 60 60 60 Respiratory Rate 20 22 19 Blood Pressure 138/62 140/63 130/63 Pulse Oximetry 100 100 100 01/26/18 22:18 01/26/18 22:30 01/26/18 23:00 Temperature Pulse Rate 60 60 Respiratory Rate 19 22 22 Blood Pressure 135/63 Pulse Oximetry 100 100 100 01/26/18 23:01 01/26/18 23:06 01/26/18 23:31 Temperature Pulse Rate 60 60 61 Respiratory Rate 19 20 28 H Blood Pressure 140/63 152/67 H Pulse Oximetry 100 100 01/27/18 00:00 01/27/18 00:01 01/27/18 00:30 Temperature 99.6 F Pulse Rate 62 62 61 Respiratory Rate 29 H 30 H 28 H Blood Pressure 126/59 L 131/63 Pulse Oximetry 100 100 100 01/27/18 01:00 01/27/18 01:15 01/27/18 01:30 Temperature Pulse Rate 60 60 Respiratory Rate 25 H 20 20 Blood Pressure 117/56 L 114/56 L Pulse Oximetry 100 99 99 12/11/18 02:00 01/27/18 02:30 01/27/18 03:00 Temperature Pulse Rate 60 60 60 Respiratory Rate 23 22 20 Blood Pressure 117/56 L 129/60 135/65 Pulse Oximetry 99 100 100 01/27/18 03:14 01/27/18 03:30 01/27/18 04:00 Temperature 98.5 F Pulse Rate 60 60 59 L Respiratory Rate 21 22 29 H Blood Pressure 141/63 H 144/65 H Pulse Oximetry 100 100 01/27/18 04:06 01/27/18 06:00 01/27/18 07:00 Temperature Pulse Rate 62 61 Respiratory Rate 21 26 H Blood Pressure 144/65 H Pulse Oximetry 100 100 01/27/18 07:23 01/27/18 07:30 01/27/18 08:00 Temperature 99.8 F H Pulse Rate 69 68 64 Respiratory Rate 27 H 27 H 28 H Blood Pressure 162/70 H 155/67 H Pulse Oximetry 100 100 100 01/27/18 08:31 01/27/18 09:00 01/27/18 09:31 Temperature Pulse Rate 61 63 61 Respiratory Rate 22 23 24 Blood Pressure 137/63 149/65 H 167/74 H Pulse Oximetry 100 100 100 01/27/18 09:58 01/27/18 10:00 01/27/18 10:30 Temperature Pulse Rate 60 61 Respiratory Rate 20 22 22 Blood Pressure 112/53 L 154/70 H Pulse Oximetry 98 98 100 01/27/18 10:38 01/27/18 10:40 01/27/18 11:00 Temperature Pulse Rate 61 62 60 Respiratory Rate 21 21 20 Blood Pressure 148/67 H 135/64 145/63 H Pulse Oximetry 100 100 100 01/27/18 11:10 01/27/18 11:31 01/27/18 12:00 Temperature 97.9 F Pulse Rate 60 60 60 Respiratory Rate 19 21 20 Blood Pressure 105/54 L 117/56 L Pulse Oximetry 99 99 01/27/18 12:30 01/27/18 13:00 01/27/18 13:31 Temperature Pulse Rate 60 60 60 Respiratory Rate 22 22 27 H Blood Pressure 124/60 136/65 127/60 Pulse Oximetry 100 100 100 01/27/18 13:56 01/27/18 14:00 01/27/18 14:30 Temperature Pulse Rate 60 60 Respiratory Rate 19 23 30 H Blood Pressure 128/61 124/58 L Pulse Oximetry 99 100 98 01/27/18 15:56 01/27/18 16:00 Temperature 97.8 F Pulse Rate 60 60 Respiratory Rate 18 23 Blood Pressure 114/56 L Pulse Oximetry 98 Intake & Output 01/26/18 01/27/18 01/27/18 18:59 06:59 18:59 Intake Total 3228.875 / 3228.875 1093 / 1093 50 / 50 Output Total 1050 / 1050 1350 / 1350 Balance 2178.875 / 2178.875 -257 / -257 50 / 50 Weight 90.2 kg Intake: IV 3128.875 / 3128.875 100 / 100 50 / 50 Precedex Inj 200 MCG In NS Inj 50 / 50 48 ML @ 0.2 MCG/KG/HR 4.51 mls/ hr IV.CONT [facility] Rx#: [id number] Sodium Chloride 23.4% Inj 38.5 3028.875 / 3028.875 MEQ In Sterile Water for Inj 1, 000 ML @ 75 mls/hr IV.CONT . [id number] [facility] Rx#:[id number] Flexbumin 25% Inj 100 ML @ 60 100 / 100 100 / 100 mls/hr IV.SIG Q6H [facility] Rx#: [id number] Tube Feeding 100 / 100 693 / 693 Tube Irrigant 300 / 300 Output: Urine Amount (Catheter) 1050 / 1050 1350 / 1350 Indwelling Urethral Catheter 1050 / 1050 1350 / 1350 Other: Date of Last Bowel Movement 01/24/18 01/27/18 01/26/18 # Bowel Movements 1 Narrative: awake alert moving all 4 ext HEENT: PABLO, Non icteric, conjunctiva pale. Neck:Supple , JVD not elevated, Lungs: Bilateral basal rales and occ. rhonchi. Abd. Soft , BS positive, distended. Ext: Moderate leg edema. Chris: following most of the commands. - Urinary Catheter Management Indwelling Urethral Catheter Cath placed during this visit: yes Reason for continuing: Chronic Urinary Retention Insertion date: 01/16/18 Insertion time: 17:30 Assessment and Plan - Assessment (1) Acute kidney injury Code(s): N17.9 - Acute kidney failure, unspecified Status: Acute Plan: Patient with Acute kidney injury and Hyperkalemia, Most likely has ATN due to hypotension, now BP is better, K is low, on replacement. K-Lyte 50 mEq given Creatinine continue to improve, Na. is 158. BUN and creatinine improved and patient is nonoliguric Replace potassium Patient has underlying Pseudomonas infection on cefepime, repeat cultures are negative on free water via GT. Avoid Nephrotoxins. Improved mental status Neurology following. Also seen by Palliative care. Creatinine continue to improve, now 1.9, Sodium is also improving, now 147. To start oral intake later today. (2) Sepsis Code(s): A41.9 - Sepsis, unspecified organism Status: Acute Plan: Blood cultures positive for Pseudomonas on cefepime (3) Acute UTI Code(s): N39.0 - Urinary tract infection, site not specified Status: Acute Plan: Has cefepime for Pseudomonas. (4) Respiratory failure Code(s): J96.90 - Respiratory failure, unspecified, unspecified whether with hypoxia or hypercapnia Status: Acute Plan: Patient is intubated on very mild sedation.
[2018-01-28] MEDS: hydrALAZINE HCl Inj 20 MG/ML Vial IV.PUSH PRN ×4 (02:43→23:07)
[2018-01-28] MEDS: Oral Hygiene Kit OROPHARYNG SCH ×4 (04:00→15:57)
[2018-01-28] MEDS: Insulin NovoLOG Aspart Correctional Sugar Inj SQ SCH ×5 (05:38→21:19)
--- NOTE | 2018-01-28 05:59 | XR ---
EXAM DATE: 01/28/2018 5:55 AM EST AGE/SEX: 82 years / Male INDICATIONS: Respiratory failure. CLINICAL DATA: This is the patient's subsequent encounter. Patient reports that signs and symptoms h ave been present for 3 days and indicates a pain score of Nonresponsive. MEDICAL/SURGICAL HISTORY: Non-responsive. Non-responsive. COMPARISON: [facility] [place], CHEST 1V SINGLE AP, 01/27/2018. . FINDINGS: Single AP view the chest. Cardiac pacemaker remains in place. Cardiac silhouette enlargement unchange d. Endotracheal tube, nasogastric tube no longer seen. Lung volumes are low. Lungs are clear. No evid ence of pleural effusion or pneumothorax. CONCLUSION: Endotracheal tube and nasogastric tube no longer seen. Lung volumes are low and there is chronic card iac silhouette enlargement. No acute cardiopulmonary disease identified. Electronically signed by: Ryne Alfonso MD 01/28/2018 5:58 AM EST
[2018-01-28 07:03] LABS: Baso # (Auto) 0.1 th/mm3 (0.0-0.2); Baso % (Auto) 0.6 % (0.0-2.0); Eos # (Auto) 0.4 th/mm3 (0.0-0.4); Eos % (Auto) 3.9 % (0.0-4.0); Hemoglobin 10.5 gm/dL (13.0-17.0); Lymph # (Auto) 0.9 th/mm3 (1.0-4.8); Lymph % (Auto) 10.1 % (9.0-44.0); Mean Corpuscular HGB Conc 33.9 % (32.0-36.0); Mean Corpuscular Hemoglobin 29.6 pg (27.0-34.0); Mean Corpuscular Volume 87.4 fL (80.0-100.0); Mono # (Auto) 0.7 th/mm3 (0.0-0.9); Mono % (Auto) 7.3 % (0.0-8.0); Neut # (Auto) 7.2 th/mm3 (1.8-7.7); Neut % (Auto) 78.1 % (16.0-70.0); Platelet Count 237 th/mm3 (150-450); Red Blood Count 3.55 mil/mm3 (4.50-5.90); White Blood Count 9.2 th/mm3 (4.0-11.0)
[2018-01-28 07:32] LABS: Alanine Aminotransferase 88 U/L (12-78); Albumin 3.1 g/dL (3.4-5.0); Alkaline Phosphatase 102 U/L (45-117); Anion Gap 7 meq/L (5-15); Aspartate Aminotransferase 45 U/L (15-37); Blood Urea Nitrogen 83 mg/dL (7-18); Calcium 8.6 mg/dL (8.5-10.1); Carbon Dioxide 25.2 meq/L (21.0-32.0); Chloride 121 meq/L (98-107); Glomerular Filtration Rate 39 mL/min (>89); Glucose,Random 94 mg/dL (74-106); Magnesium 2.9 mg/dL (1.5-2.5); Phosphorus 3.7 mg/dL (2.5-4.9); Sodium 153 meq/L (136-145); Total Protein 7.2 g/dL (6.4-8.2)
[2018-01-28] MEDS: amLODIPine 5 MG Tablet PO SCH (08:11)
[2018-01-28] MEDS: Senna/Docusate Sodium 8.6/50 MG Tablet PO SCH ×2 (08:11→21:19)
[2018-01-28] MEDS: Carvedilol 12.5 MG Tablet PO SCH ×2 (08:11→21:19)
[2018-01-28] MEDS: Chlorhexidine 0.12% Oral Kit 15 ML UDC OROPHARYNG SCH ×2 (08:12→21:20)
[2018-01-28] MEDS: Polyethylene Glycol 3350 17 GM Packet PO SCH ×2 (08:12→21:19)
[2018-01-28] MEDS: Artificial Tears Opth Drops 15 ML Bottle EACH EYE SCH ×2 (08:13→15:57)
--- NOTE | 2018-01-28 08:57 | P.PNNEU ---
Subjective Active Medications: Active Medications Acetaminophen (Tylenol) 650 mg PO Q6H PRN PRN Reason: Temp > 100.4 Albuterol (Albuterol Neb (Prn)) 2.5 mg NEB Q2HR NEB PRN PRN Reason: DYSPNEA Albuterol (Duoneb Neb (Nisha)) 1 ampul NEB Q4HR NEB [facility] Last Admin: 01/28/18 07:39 Dose: 1 ampul Amlodipine Besylate (Norvasc) 5 mg PO DAILY [facility] Last Admin: 01/28/18 08:11 Dose: 5 mg Artificial Tears (Tears Naturale Opth Drops) 1 drop EACH EYE Q8H [facility] Last Admin: 01/28/18 08:13 Dose: 1 drop Aspirin (Aspirin Chew) 81 mg PO DAILY [facility] Last Admin: 01/28/18 08:11 Dose: 81 mg Atorvastatin Calcium (Lipitor) 10 mg PO DAILY [facility] Last Admin: 01/28/18 08:12 Dose: 10 mg Bisacodyl (Dulcolax Supp) 10 mg RECTAL DAILY PRN PRN Reason: SEVERE CONSITIPATION Carvedilol (Coreg) 12.5 mg PO BID [facility] Last Admin: 01/28/18 08:11 Dose: 12.5 mg Chlorhexidine Gluconate (Peridex 0.12% Oral Kit) 15 ml OROPHARYNG BID@0800, 2000 [facility] Last Admin: 01/28/18 08:12 Dose: 15 ml Dextrose (D50w Vial) 50 ml IV.PUSH UNSCH PRN PRN Reason: PER HYPOGLYCEMIA PROTOCOL Escitalopram Oxalate (Lexapro) 10 mg PO DAILY [facility] Last Admin: 01/16/18 09:18 Dose: 10 mg Gabapentin (Neurontin) 300 mg PO BID [facility] Last Admin: 01/16/18 09:19 Dose: 300 mg Glucagon (Glucagon Inj) 1 mg OTHER PRN PRN PRN Reason: for Hypoglycemia Protocol Hydralazine HCl (Apresoline Inj) 10 mg IV.PUSH Q1H PRN PRN Reason: SEE LABEL COMMENTS Last Admin: 01/28/18 02:43 Dose: 10 mg Dexmedetomidine HCl 200 mcg/ (Sodium Chloride) 50 mls @ 4.51 mls/hr IV.CONT TITRATE PRN; Protocol PRN Reason: Per Protocol Last Admin: 01/27/18 18:00 Dose: 0.2 mcg/kg/hr, 4.51 mls/hr Insulin Aspart (Novolog Insulin Correctional Sugar Inj) 0 unit SQ Q6HR [facility]; Protocol Last Admin: 01/28/18 07:53 Dose: Not Given Labetalol HCl (Trandate Inj) 10 mg IV.PUSH Q4H PRN PRN Reason: SEE LABEL COMMENTS Last Admin: 01/24/18 01:45 Dose: 10 mg Lactulose (Lactulose Liq) 30 ml PO DAILY PRN PRN Reason: SEVERE CONSITIPATION Lactulose (Lactulose Liq) 30 ml PO BID [facility] Last Admin: 01/28/18 08:11 Dose: 30 ml Lansoprazole (Prevacid Solutab) 30 mg NG/OG DAILY [facility] Last Admin: 01/28/18 08:12 Dose: 30 mg Levofloxacin (Levaquin) 500 mg PO Q48H [facility] Last Admin: 01/26/18 14:33 Dose: 500 mg Miscellaneous Medication () 1 each OROPHARYNG 0000,0400,1200,1600 [facility] Last Admin: 01/28/18 04:00 Dose: Not Given Ondansetron HCl (Zofran Inj) 4 mg IV.PUSH Q6H PRN PRN Reason: NAUSEA OR VOMITING Polyethylene Glycol (Miralax) 17 gm PO BID [facility] Last Admin: 01/28/18 08:12 Dose: 17 gm Senna/Docusate Sodium (Bel-Colace) 1 tab PO BID [facility] Last Admin: 01/28/18 08:11 Dose: 1 tab Sennosides (Senokot) 17.2 mg PO Q12H PRN PRN Reason: Moderate Constipation Sodium Chloride (Ns Flush) 2 ml IV.FLUSH BID [facility] Last Admin: 01/28/18 08:12 Dose: 2 ml Sodium Chloride (Ns Flush) 2 ml IV.FLUSH PRN PRN PRN Reason: FLUSH AFTER USING IV ACCESS Last Admin: 01/24/18 17:56 Dose: 2 ml Sterile Water (Free Water) 200 ml NG/OG Q6H [facility] Last Admin: 01/28/18 07:53 Dose: Not Given Tamsulosin HCl (Flomax) 0.4 mg PO HS [facility] Last Admin: 01/27/18 21:00 Dose: Not Given Allergies/Adverse Reactions: Allergies Allergy/AdvReac Type Severity Reaction Status Date / Time No Known Allergies Allergy Verified 01/02/18 12:33 Physical Exam Vital signs: Vital Signs 01/27/18 09:00 01/27/18 09:31 01/27/18 09:58 Temperature Pulse Rate 63 61 Respiratory Rate 23 24 20 Blood Pressure 149/65 H 167/74 H Pulse Oximetry 100 100 98 01/27/18 10:00 01/27/18 10:30 01/27/18 10:38 Temperature Pulse Rate 60 61 61 Respiratory Rate 22 22 21 Blood Pressure 112/53 L 154/70 H 148/67 H Pulse Oximetry 98 100 100 01/27/18 10:40 01/27/18 11:00 01/27/18 11:10 Temperature Pulse Rate 62 60 60 Respiratory Rate 21 20 19 Blood Pressure 135/64 145/63 H Pulse Oximetry 100 100 01/27/18 11:31 01/27/18 12:00 01/27/18 12:30 Temperature 97.9 F Pulse Rate 60 60 60 Respiratory Rate 21 20 22 Blood Pressure 105/54 L 117/56 L 124/60 Pulse Oximetry 99 99 100 01/27/18 13:00 01/27/18 13:31 01/27/18 13:56 Temperature Pulse Rate 60 60 Respiratory Rate 22 27 H 19 Blood Pressure 136/65 127/60 Pulse Oximetry 100 100 99 01/27/18 14:00 01/27/18 14:30 01/27/18 15:56 Temperature Pulse Rate 60 60 60 Respiratory Rate 23 30 H 18 Blood Pressure 128/61 124/58 L Pulse Oximetry 100 98 01/27/18 16:00 01/27/18 20:00 01/27/18 20:15 Temperature 97.8 F 98.2 F Pulse Rate 60 60 60 Respiratory Rate 23 20 18 Blood Pressure 114/56 L 143/65 H Pulse Oximetry 98 100 01/27/18 22:00 01/27/18 23:38 01/28/18 00:00 Temperature 98.0 F Pulse Rate 60 60 60 Respiratory Rate 24 20 Blood Pressure 159/71 H Pulse Oximetry 98 01/28/18 02:00 01/28/18 04:00 01/28/18 05:58 Temperature 98 F Pulse Rate 60 60 60 Respiratory Rate 22 Blood Pressure 134/58 L Pulse Oximetry 100 01/28/18 07:40 Temperature Pulse Rate 60 Respiratory Rate 18 Blood Pressure Pulse Oximetry 100 Intake & Output 12/01/0401/28/18 01/28/18 18:59 06:59 18:59 Intake Total 50 / 50 Output Total 1200 / 1200 Balance 50 / 50 -1200 / -1200 Weight 87 kg Intake: IV 50 / 50 Precedex Inj 200 MCG In NS Inj 50 / 50 48 ML @ 0.2 MCG/KG/HR 4.51 mls/ hr IV.CONT TITRATE PRN Rx#: [id number] Output: Urine Amount (Catheter) 1200 / 1200 Indwelling Urethral Catheter 1200 / 1200 Other: Date of Last Bowel Movement 01/26/18 01/26/18 # Bowel Movements 0 Narrative: awake sitting up vff fa e sym moves [employer] speech clear - Urinary Catheter Management Indwelling Urethral Catheter Cath placed during this visit: yes Reason for continuing: Chronic Urinary Retention Insertion date: 01/16/18 Insertion time: 17:30 Objective Laboratory Results - last 24 hr 01/27/18 01/27/18 01/27/18 11:51 17:39 20:00 WBC RBC Hgb Hct MCV MCH MCHC RDW Plt Count MPV Neut % (Auto) Lymph % (Auto) Richardson % (Auto) Eos % (Auto) Baso % (Auto) Neut # (Auto) Lymph # (Auto) Richardson # (Auto) Eos # (Auto) Baso # (Auto) WBC Differential Differential Comment Sodium Potassium Chloride Carbon Dioxide Anion Gap BUN Creatinine Estimated GFR POC Glucose 107 112 H 128 H Random Glucose Calcium Phosphorus Magnesium Total Bilirubin AST ALT Alkaline Phosphatase Ammonia Total Protein Albumin 01/28/18 01/28/18 01/28/18 05:37 06:03 06:03 WBC 9.2 RBC 3.55 L Hgb 10.5 L Hct 31.0 L MCV 87.4 MCH 29.6 MCHC 33.9 RDW 15.0 Plt Count 237 MPV 10.0 Neut % (Auto) 78.1 H Lymph % (Auto) 10.1 Richardson % (Auto) 7.3 Eos % (Auto) 3.9 Baso % (Auto) 0.6 Neut # (Auto) 7.2 Lymph # (Auto) 0.9 L Richardson # (Auto) 0.7 Eos # (Auto) 0.4 Baso # (Auto) 0.1 WBC Differential . Differential Comment Auto diff final Sodium 153 H Potassium 4.0 D Chloride 121 H Carbon Dioxide 25.2 Anion Gap 7 BUN 83 H Creatinine 1.69 H Estimated GFR 39 L POC Glucose 103 Random Glucose 94 Calcium 8.6 D Phosphorus 3.7 Magnesium 2.9 H Total Bilirubin 1.0 AST 45 H ALT 88 H Alkaline Phosphatase 102 Ammonia Total Protein 7.2 Albumin 3.1 L 01/28/18 06:03 WBC RBC Hgb Hct MCV MCH MCHC RDW Plt Count MPV Neut % (Auto) Lymph % (Auto) Richardson % (Auto) Eos % (Auto) Baso % (Auto) Neut # (Auto) Lymph # (Auto) Richardson # (Auto) Eos # (Auto) Baso # (Auto) WBC Differential Differential Comment Sodium Potassium Chloride Carbon Dioxide Anion Gap BUN Creatinine Estimated GFR POC Glucose Random Glucose Calcium Phosphorus Magnesium Total Bilirubin AST ALT Alkaline Phosphatase Ammonia 25 Total Protein Albumin Review/Management - Review/Management Plan: imp labs ok looks better fu echo and ct pacemaker sepsis likley left occipital cva some hemorrhagic component vs abcess less likley 01/23/18 he was more interactive yesterday bun 107 creat a bit better continue to hold sedatives echo and eeg neg check us carotid repeat ct no change this is likely hemorrhagic infarct afib a large abcess could be considered and i will have estela weigh in my hope is he will awaken off sedatives as he metabolic condition improves i will be out of town call dr davis over weekend if ? o/w i will fu friday ------- 01/26/18 us left some mod dz check ldl estela note seen prob hemorrhagic infarct recheck ct 10 days as dw med team i would have estela weigh in on if they think he could be anticoagulated or not ie bleeding risk asa 81 for now much better may be aphasic hard to say 01/28/18 ldl nl looks well and nonfocal now i would ask estela if they think we can start anticoag
[2018-01-28] MEDS: levoFLOXacin 500 MG Tablet PO SCH (12:37)
[2018-01-28] MEDS: Dexmedetomidine Inj 200 MCG in Sodium Chlor 0.9% Inj 48 ML IV.CONT PRN (12:38)
--- NOTE | 2018-01-28 13:43 | P.PNCC ---
Subjective Subjective Remarks/Hospital Course: Mr. Cheung is a 82-year-old male with bladder cancer, thoracic and abdominal aortic aneurysm, Bronchiectasis, Restrictive lung disease, COPD, on 2L of supplemental O2, history of congestive heart failure, Hyperlipidemia, HTN who recently underwent recent cystoscopy with meatal dilation about 4 days ago. According to Dr. 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 He underwent laser ablation of the tumor masses with biopsy along with laser lithotripsy and extraction of the right ureteral calculus. Bilateral stents were placed. Patient came to the ER today with symptoms of UTI and sepsis, altered mental status. UA showed evidence of UTI. Patient was started on Rocephin and admitted to hospitalist service. Over the course of the day patient clinically started deteriorating hypotensive with worsening encephalopathy hardly responsive. Patient was transferred to the ICU and critical care medicine was consulted. I evaluated the patient in the ICU he is very lethargic encephalopathy. Currently received 2 L normal saline bolus and had been started on Levophed currently at 12 mcg/min. Despite this patient is hypotensive. Initial ABG showed a pH of 7.25 PCO2 50 base excess -5 now slightly worse with pH of 7.23 PCO2 52. Due to severe sepsis and metabolic acidosis patient is not a candidate for BiPAP. WBC count of on admission was 14 with left shift now has worsened to 20.4. Initial lactic acid was 2,2 repeat lactic acid is pending at this time. Patient previously was sent home with indwelling Prince by Dr. Cabrera , he removed the Prince today. Patient has been oliguric and in renal failure. Will replace the Prince for strict hourly intake output 01/17: Remains critical intubated sedated. Blood cultures all bottles growing gram-negative rods. Currently on Zosyn. Creatinine has worsened to 3, potassium is 6.2. Urine output has been marginal 10-15 mL/h. CVP is only 9. Fluid challenge with 1 L normal saline bolus and maintenance fluid 100 mL/h. Nephrology consulted, CMP at noon. Treatment for hyperkalemia ordered with IV insulin followed by dextrose, calcium, bicarb, Kayexalate and breathing treatments. 01/18: Remains critical, remains in multiorgan failure. Started on Lasix by nephrology yesterday urine output approximately 1 L, worsening BUN/creatinine 66 /3.74. Will discuss with nephrology regarding dialysis though there is no acute indication. WBC count slightly improved to 15.2. Patient developed A. fib with RVR yesterday, started on Cardizem infusion after bolus. Will DC Lovenox for DVT prophylaxis and start on IV heparin for persistent A. fib. 01/19: Patient continues on heparin and Cardizem infusion. WBC count slightly improved. Urine output increased 2 L in 12 hours last evening. Patient continues in A. fib but rate controlled will transition to p.o.. 01/20: T-max 101.0 Cardizem has been transition to p.o. 30 mg 4 times daily. The patient continues to fail CPAP trials. Urine output continues to increase. Continue continued improvement in WBC count. No change in neurological status , despite being off sedation greater than 48 hours continue to monitor. 01/21: Late entry note patient seen approximately at 11 AM .afebrile. Patient remains uncertain responsive despite> than 48 hours of discontinuation of Versed however patient noted to have an elevated creatinine so significantly less clearance of the prolonged Versed infusion stat labs being obtained ammonia level cortisol level. Neurology also has been consulted. Stat CT of the head obtained revealed abnormality in the left parietal occipital region, heparin placed on hold. Stat MRI is pending. Patient tolerating CPAP trials today greater than 2-1/2 hours thus far. 01/22: Neuro assessment performed earlier this a.m. patient has spontaneous eye opening moving head responding to pain , noted visual tracking. Repeat CT head obtained this a.m. per neurology recommendations, noted unchanged. Inability to obtain MRI secondary to pacemaker. EEG results are pending .maintain systolic blood pressure less than 140 PRN antihypertensives initiated. Carvedilol resumed. Echo pending. Extensive discussion with family at bedside patient's and children medical status update given all questions answered. 01/23: Afebrile .No acute change overnight. Systolic blood pressure being maintained less than 140. Carotid ultrasound is pending. Patient noted to be hyponatremic free water flushes added to medication regimen. CPAP trials continued. 01/24: Remains intubated off all sedation remains severely encephalopathic. 128/ 3.2 today. Nonoliguric. Sodium 159. Started on quarter normal saline at 120 femoral per hour. Potassium getting replaced. Discussed worsening renal function with Dr. Crandall nephrology. Neurosurgery has seen for left hemorrhagic infarct continue conservative management 01/25: Remains on quarter normal saline 125 cc hours with free water 200 cc p.o. every 6 hours per NG tube. Arousable and follows commands more weakly in the left upper and lower extremity. Tolerating tube feeds at goal. 01/26: Afebrile. Resting in bed in no acute distress. Heart rate controlled. Lasted approximately 6-8 hours on CPAP trial yesterday. Will attempt today after gentle diuresis 01/27: Jagdish PSV trial times 6 hours yesterday until became tachypneic. Still confused. Baby aspirin started yesterday by neurology. No further issues. Tolerating tube feeding. SUBJECTIVE: 01/28: Extubated and currently on room air. No acute issues. Baby aspirin started 01/26 without complication. Tolerating mechanical soft diet. Okay to transfer to neuro floor. Objective Vital Signs / I&O: Vital Signs 01/27/18 13:56 01/27/18 14:00 01/27/18 14:30 Temperature Pulse Rate 60 60 Respiratory Rate 19 23 30 H Blood Pressure 128/61 124/58 L Pulse Oximetry 99 100 98 01/27/18 15:56 01/27/18 16:00 01/27/18 20:00 Temperature 97.8 F 98.2 F Pulse Rate 60 60 60 Respiratory Rate 18 23 20 Blood Pressure 114/56 L 143/65 H Pulse Oximetry 98 100 01/27/18 20:15 01/27/18 22:00 01/27/18 23:38 Temperature Pulse Rate 60 60 60 Respiratory Rate 18 24 Blood Pressure Pulse Oximetry 01/28/18 00:00 01/28/18 02:00 01/28/18 04:00 Temperature 98.0 F 98 F Pulse Rate 60 60 60 Respiratory Rate 20 22 Blood Pressure 159/71 H 134/58 L Pulse Oximetry 98 100 01/28/18 05:58 01/28/18 07:40 01/28/18 08:00 Temperature 98.3 F Pulse Rate 60 60 61 Respiratory Rate 18 21 Blood Pressure 163/72 H Pulse Oximetry 100 100 01/28/18 10:00 01/28/18 11:07 01/28/18 11:32 Temperature Pulse Rate 60 60 Respiratory Rate 18 Blood Pressure Pulse Oximetry 99 01/28/18 12:00 Temperature 97.6 F Pulse Rate 60 Respiratory Rate 24 Blood Pressure 153/67 H Pulse Oximetry 97 Intake & Output 01/27/18 01/28/18 01/28/18 18:59 06:59 18:59 Intake Total 50 / 50 50 / 50 Output Total 1200 / 1200 Balance 50 / 50 -1200 / -1200 50 / 50 Weight 87 kg Intake: IV 50 / 50 50 / 50 Precedex Inj 200 MCG In NS Inj 50 / 50 50 / 50 48 ML @ 0.2 MCG/KG/HR 4.51 mls/ hr IV.CONT TITRATE PRN Rx#: [id number] Output: Urine Amount (Catheter) 1200 / 1200 Indwelling Urethral Catheter 1200 / 1200 Other: Date of Last Bowel Movement 01/26/18 01/26/18 01/26/18 # Bowel Movements 0 Result Diagrams: 01/28/18 06:03 01/28/18 06:03 Other Results: Microbiology 01/20/18 05:51 Blood - Peripheral Aerobic Blood Culture - Final No growth in 5 days 01/20/18 05:51 Blood - Peripheral Anaerobic Blood Culture - Final No growth in 5 days 01/20/18 06:01 Blood - Peripheral Aerobic Blood Culture - Final No growth in 5 days 01/20/18 06:01 Blood - Peripheral Anaerobic Blood Culture - Final No growth in 5 days 01/16/18 08:20 Blood - Peripheral Aerobic Blood Culture - Final Pseudomonas aeruginosa 01/16/18 08:20 Blood - Peripheral Anaerobic Blood Culture - Final No growth in 5 days 01/16/18 08:05 Blood - Peripheral Aerobic Blood Culture - Final Pseudomonas aeruginosa 01/16/18 08:05 Blood - Peripheral Anaerobic Blood Culture - Final Pseudomonas aeruginosa 01/16/18 06:28 Catheterized Urine Urine Culture - Final Pseudomonas aeruginosa Imaging: Chest X-Ray 01/16/18 00:00 CONCLUSION: 1. Interval intubation. 2. Placement of right internal jugular central venous line with no pneumothorax. 3. Streaky opacity remains at the lung bases without significant change. Abdomen/Pelvis CT 01/16/18 04:21 CONCLUSION: 1. Bilateral ureteral stents are in place and there is mild distention of the collecting systems bilaterally. Both kidneys enhance heterogeneously. 2. 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 Chest X-Ray 01/16/18 04:21 CONCLUSION: Stable mildly enlarged cardiac silhouette. No acute abnormality is identified. Chest X-Ray 01/16/18 15:20 CONCLUSION: Cardiomegaly with prominence of the interstitial markings likely related to mild edema. Chest X-Ray 01/17/18 06:00 CONCLUSION: Stable chest x-ray with mild bibasilar opacity representing either atelectasis or consolidation. Chest X-Ray 01/18/18 06:00 CONCLUSION: Stable chest x-ray with mild bibasilar opacity. Chest X-Ray 01/20/18 04:00 CONCLUSION: Improvement in the areas of basilar consolidation. Head CT 01/21/18 12:18 CONCLUSION: 1. Abnormal left parietal occipital region. MRI suggested. . Head CT 01/22/18 05:00 CONCLUSION: 1. No significant interval change. 2. Stable large 6.1 x 3.9 cm left occipital abnormality, as above. Differential considerations include mass versus evolving hemorrhagic infarct. Consider contrast enhanced MRI examination for further characterization. . Carotid Doppler Study 01/23/18 00:00 CONCLUSION: 1. Right Internal Carotid Artery: Findings indicate <50% stenosis. 2. Left Internal Carotid Artery: Findings indicate 50-69% stenosis. This is likely in the higher aspect of this range. Chest X-Ray 01/23/18 04:00 CONCLUSION: Stable appearance of the chest. Chest X-Ray 01/26/18 06:00 CONCLUSION: No significant interval change with mild bilateral pulmonary parenchymal opacity. Chest X-Ray 01/27/18 06:00 CONCLUSION: No significant interval change with mild bilateral lower lung zone opacity. Chest X-Ray 01/28/18 06:00 CONCLUSION: Endotracheal tube and nasogastric tube no longer seen. Lung volumes are low and there is chronic cardiac silhouette enlargement. No acute cardiopulmonary disease identified. Objective Remarks: GENERAL: Elderly 82-year-old male no acute distress SKIN: Poorly perfused. Moderate bruising noted bilateral upper and lower extremities HEENT: Atraumatic. Normocephalic. Pupils equal and round. edentulous. Intubated NECK: Trachea midline. No JVD. CARDIO: Tachycardic, RR. S1, S2. No S4. Left upper chest pacemaker in place. RESP: Air entry equal bilaterally with bilateral bibasilar crackles. No wheezes or rhonchi ABD: +BS, soft, non-tender, nondistended. Do not appreciate any flank tenderness on deep palpation EXT: Extremities without significant peripheral edema. NEURO: Slight weakness in the right upper extremity noted. Otherwise, good strength left upper and lower extremity. Following commands. Assessment and Plan - Assessment and Plan Plan: NEURO/PSYCH: Left parieto-occipital hemorrhagic infarct versus mass versus abscess -01/22, CT brain-abnormality left parietal occipital region. 01/23 large 6.1 x 3.9 cm left occipital abnormality, probable hemorrhagic infarct Followed by Dr. Kemp/neurology -Neurosurgery consulted for possible hemorrhagic infarct left parieto- occipital. Recommend repeat CT brain in 2 weeks with contrast if able cannot rule out mass lesion or abscess into continue conservative management. Dr. Doshi returns 01/31 - re -recommendation regarding antiplatelet or anticoagulation -Altered mental status/encephalopathy secondary to metabolic encephalopathy and severe sepsis and acute stroke -Has mild midline shift keep sodium 145-150. Currently 153 -Holding escitalopram 10 mg daily/home medication for depression -Acetaminophen 650 mg every 6 hours as needed fever Continue baby aspirin 81 mg daily per neurology RESP: Bronchiectasis/Restrictive lung disease/COPD, chronically on 2L of supplemental O2 Obstructive sleep apnea on CPAP at night Acute hypoxemic respiratory failure Extubated 01/27. Currently on room air. -Albuterol/ipratropium aerosols every 4 hours with albuterol aerosols every 2 hours as needed -Incentive spirometry while awake CV: CHF/systolic Hyperlipidemia HTN Atrial fibrillation currently rate control AAA/Thoracic aortic aneurysm -Developed A. fib with RVR 01/17/2018. Diltiazem 30 mg 4 times daily initiated.. This is discontinued 01/27 carvedilol 12.5 twice daily. Today we will resume amlodipine at 5 mg daily -Currently rate controlled but remains in A. fib, off IV heparin due to hemorrhagic infarct -Diuresis per nephrology. Currently on free water flushes 200 cc every 6 hours. Scheduled albumin for 25 g IV every 6 hours until 01/26 at 1500 hrs. -Keep MAP > 65, normal and vasopressin discontinued 01/18 -2D echo 07/24/17: Estimated EF 45-50%, abnormal LV diastolic function, mild to moderate AR -Currently on atorvastatin 10 mg daily for hyperlipidemia GI: Elevated transaminases Currently on mechanical soft diet Lansoprazole for GI prophylaxis -Bowel regimen with docusate sodium/senna 1 tablet twice daily, polythene glycol 17 g twice daily and lactulose 30 cc twice daily Renal/: History meatal stenosis BPH Status post recent bilateral ureteroscopy suspicious for recurrent urothelial cancer involving both ureteral orifices. Status post recent right ureteroscopy with laser lithotripsy of distal ureteral calculus Status post bilateral ureteral stent placement Acute kidney injury likely secondary to hypoperfusion/hypotension -Monitor renal function closely. Prince catheter. Patient's previous indwelling catheter was removed by Dr. Feliciano 01/16/18 -Urology Dr. Feliciano is following -Nephrology Dr. Duarte following for for worsening oliguric renal failure creatinine Monitor for need for hemodialysis -CT of abdomen pelvis on admission showed bilateral ureteral stents are in place and there is mild distention of the collecting systems bilaterally. Continue tamsulosin 0.4 mg daily ID: Pseudomonas bacteremia/urosepsis -Antibiotics continue levofloxacin. Discontinue cefepime 01/26 -Blood urine and sputum cultures. Blood culture growing gram-negative rods and 3 out of 4 bottles-pseudomonas growing -ID consulted-Dr. Foster following -urine culture Pseudomonas HEME: Noninvasive low-grade papillary urethrothelial carcinoma Normocytic anemia -Monitor CBC, coags -No indication for transfusion of blood products at this time ENDO/FEN: Hypernatremia Hypermagnesium -Upon admission ,hyperkalemia treatment with IV insulin, IV bicarb, IV calcium, breathing treatment and Kayexalate -SSI with aspart insulin every before meals at bedtime ow regime PROPH: -Bilateral lower extremity SCDs. No pharmacological DVT pharmacologic prophylaxis at this time. Lansoprazole LINES: Utilize peripheral IV. Central line if indicated -Right IJ central line placed 01/16/2018. Respiratory therapist placed art line 01/16/18-central line and arterial line discontinued 01/20 Level 2 follow-up. Patient stable from critical care medicine standpoint. Assign care to hospitalist in a.m. 01/29. Okay to transfer to floor
--- NOTE | 2018-01-28 14:31 | P.PNPAL ---
Reason for Visit Reason for visit: a. To assist with evaluation and management of symptoms including: Encephalopathy, pain, dyspnea b. To assist medical decision maker(s) with: better understanding of current medical conditions; weighing benefits/burdens of medical treatment options; making medical treatment decisions. Subjective Subjective/Interval History: Patient seen and examined in ICU to follow up on comfort, goals w decision maker. No family at bedside. Patient is awake and alert, flagging me to enter the room as I walk by. He is able to communicate his needs, moving all extremities. Patient was medically extubated and on room air during my visit. He denies pain, shortness of breath or anxiety. Speech evaluation recommendation for mech soft solids and nectar thick liquids. Patient is moving all extremities purposefully. Creatinine 1.69 today, decreased from 1.96. Discussed with caseworker and nurse. Nurse will notify CM when family arrives to start to discuss DC plans for rehab. Patient may benefit from [facility] if able to tolerate given clinical improvement or SNF for rehab. Order in computer for transfer to neuro floor. Dr. Kemp wants neurosurgery opinion of whether or not to start anticoagulation. Family/Friend Interactions: No family present, asked nurse to notify CM when family arrives to start DC planning. Advance Directives Living Will: Never completed Health Care Surrogate: Never completed Durable Power of Assistant Business Manager: Never completed Health Care Surrogate Name and Number: HCP: Lanie Cheung, : [phone] Significant change in goals:: FULL CODE. Goals remain aggressive. Objective Vital Signs: Vital Signs 01/27/18 13:56 01/27/18 14:00 01/27/18 14:30 Temperature Pulse Rate 60 60 Respiratory Rate 19 23 30 H Blood Pressure 128/61 124/58 L Pulse Oximetry 99 100 98 01/27/18 15:56 01/27/18 16:00 01/27/18 20:00 Temperature 97.8 F 98.2 F Pulse Rate 60 60 60 Respiratory Rate 18 23 20 Blood Pressure 114/56 L 143/65 H Pulse Oximetry 98 100 01/27/18 20:15 01/27/18 22:00 01/27/18 23:38 Temperature Pulse Rate 60 60 60 Respiratory Rate 18 24 Blood Pressure Pulse Oximetry 01/28/18 00:00 01/28/18 02:00 01/28/18 04:00 Temperature 98.0 F 98 F Pulse Rate 60 60 60 Respiratory Rate 20 22 Blood Pressure 159/71 H 134/58 L Pulse Oximetry 98 100 01/28/18 05:58 01/28/18 07:40 01/28/18 08:00 Temperature 98.3 F Pulse Rate 60 60 61 Respiratory Rate 18 21 Blood Pressure 163/72 H Pulse Oximetry 100 100 01/28/18 10:00 01/28/18 11:07 01/28/18 11:32 Temperature Pulse Rate 60 60 Respiratory Rate 18 Blood Pressure Pulse Oximetry 99 01/28/18 12:00 Temperature 97.6 F Pulse Rate 60 Respiratory Rate 24 Blood Pressure 153/67 H Pulse Oximetry 97 Intake & Output 01/27/18 01/28/18 01/28/18 18:59 06:59 18:59 Intake Total 50 / 50 50 / 50 Output Total 1200 / 1200 Balance 50 / 50 -1200 / -1200 50 / 50 Weight 87 kg Intake: IV 50 / 50 50 / 50 Precedex Inj 200 MCG In NS Inj 50 / 50 50 / 50 48 ML @ 0.2 MCG/KG/HR 4.51 mls/ hr IV.CONT TITRATE PRN Rx#: [id number] Output: Urine Amount (Catheter) 1200 / 1200 Indwelling Urethral Catheter 1200 / 1200 Other: Date of Last Bowel Movement 01/26/18 01/26/18 01/26/18 # Bowel Movements 0 Physical Exam: CONSTITUTIONAL/GENERAL: This is an adequately nourished patient, alert, no distress, restless at times TUBES/LINES/DRAINS: left pacemaker, PIVs, Prince catheter. SKIN: No jaundice, rashes, or lesions. No wounds seen anteriorly. Skin warm and dry. EYES: pupils equal and reactive. CARDIOVASCULAR: HR 60, no murmur. pedal pulses are faint. bilateral feet warm RESPIRATORY/CHEST: Symmetric, unlabored respirations on room air. Scattered crackles. Breath sounds equal bilaterally. GASTROINTESTINAL: Abdomen soft, nondistended. Bowel sounds present. GENITOURINARY: Without palpable bladder distension. Prince catheter in place. Clear yellow urine MUSCULOSKELETAL: Extremities without clubbing, cyanosis, or edema. No mottling or clubbing. NEUROLOGICAL: alert nods to questions, speaking clearly, moves all 4 extremities , follows commands, slight delayed movement left UE. PSYCHIATRIC: no obvious anxiety, though restless at times. Diagnostic Tests Laboratory: Laboratory Results - last 72 hr 01/25/18 01/25/18 01/25/18 14:30 18:19 23:24 WBC RBC Hgb Hct MCV MCH MCHC RDW Plt Count MPV Neut % (Auto) Lymph % (Auto) [place] % (Auto) Eos % (Auto) Baso % (Auto) Neut # (Auto) Lymph # (Auto) [place] # (Auto) Eos # (Auto) Baso # (Auto) WBC Differential Differential Comment Puncture Site Right radial Patient Temperature 98.6 O2 Saturation 96 ABG pH 7.44 H ABG pCO2 40 ABG pO2 107 ABG HCO3 27 H ABG O2 Content 12.5 ABG Base Excess 2.8 H ABG Methemoglobin 0.5 Mg Test Present Hemoglobin 9.1 L Carboxyhemoglobin 1.5 O2 Delivery Device Ventilator Vent Setting Cpap/[id number] Inspired O2 40 Critical Value No Sodium Potassium Chloride Carbon Dioxide Anion Gap BUN Creatinine Estimated GFR POC Glucose 150 H 131 H Random Glucose Calcium Phosphorus Magnesium Total Bilirubin AST ALT Alkaline Phosphatase Ammonia Total Protein Albumin Triglycerides Cholesterol LDL Cholesterol, Calc HDL Cholesterol Cholesterol/HDL Ratio 01/26/18 01/26/18 01/26/18 04:26 04:26 04:26 WBC 14.9 H RBC 3.38 L Hgb 9.9 L Hct 29.6 L MCV 87.6 MCH 29.2 MCHC 33.3 RDW 15.5 Plt Count 193 MPV 10.4 Neut % (Auto) 84.2 H Lymph % (Auto) 7.4 L [place] % (Auto) 4.4 Eos % (Auto) 3.7 Baso % (Auto) 0.3 Neut # (Auto) 12.6 H Lymph # (Auto) 1.1 [place] # (Auto) 0.7 Eos # (Auto) 0.5 H Baso # (Auto) 0.1 WBC Differential . Differential Comment Auto diff final Puncture Site Patient Temperature O2 Saturation ABG pH ABG pCO2 ABG pO2 ABG HCO3 ABG O2 Content ABG Base Excess ABG Methemoglobin Mg Test Hemoglobin Carboxyhemoglobin O2 Delivery Device Vent Setting Inspired O2 Critical Value Sodium 151 H Potassium 3.3 L Chloride 116 H Carbon Dioxide 26.4 Anion Gap 9 BUN 106 H Creatinine 2.17 H Estimated GFR 29 L POC Glucose Random Glucose 121 H Calcium 7.8 L Phosphorus 2.7 Magnesium 3.1 H Total Bilirubin 0.8 AST 86 H ALT 133 H Alkaline Phosphatase 103 Ammonia Total Protein 7.0 Albumin 3.2 L Triglycerides 109 Cholesterol 75 L LDL Cholesterol, Calc 39 HDL Cholesterol 14.0 L Cholesterol/HDL Ratio 5.35 01/26/18 01/26/18 01/26/18 11:52 16:55 23:39 WBC RBC Hgb Hct MCV MCH MCHC RDW Plt Count MPV Neut % (Auto) Lymph % (Auto) [place] % (Auto) Eos % (Auto) Baso % (Auto) Neut # (Auto) Lymph # (Auto) [place] # (Auto) Eos # (Auto) Baso # (Auto) WBC Differential Differential Comment Puncture Site Patient Temperature O2 Saturation ABG pH ABG pCO2 ABG pO2 ABG HCO3 ABG O2 Content ABG Base Excess ABG Methemoglobin Mg Test Hemoglobin Carboxyhemoglobin O2 Delivery Device Vent Setting Inspired O2 Critical Value Sodium Potassium Chloride Carbon Dioxide Anion Gap BUN Creatinine Estimated GFR POC Glucose 95 113 H 116 H Random Glucose Calcium Phosphorus Magnesium Total Bilirubin AST ALT Alkaline Phosphatase Ammonia Total Protein Albumin Triglycerides Cholesterol LDL Cholesterol, Calc HDL Cholesterol Cholesterol/HDL Ratio 01/27/18 01/27/18 01/27/18 04:01 04:01 11:51 WBC 11.7 H RBC 3.31 L Hgb 9.6 L Hct 29.7 L MCV 89.6 MCH 29.1 MCHC 32.4 RDW 15.2 Plt Count 200 MPV 11.0 Neut % (Auto) 82.3 H Lymph % (Auto) 8.4 L [place] % (Auto) 5.4 Eos % (Auto) 3.6 Baso % (Auto) 0.3 Neut # (Auto) 9.6 H Lymph # (Auto) 1.0 [place] # (Auto) 0.6 Eos # (Auto) 0.4 Baso # (Auto) 0.0 WBC Differential . Differential Comment Auto diff final Puncture Site Patient Temperature O2 Saturation ABG pH ABG pCO2 ABG pO2 ABG HCO3 ABG O2 Content ABG Base Excess ABG Methemoglobin Mg Test Hemoglobin Carboxyhemoglobin O2 Delivery Device Vent Setting Inspired O2 Critical Value Sodium 147 H Potassium 4.8 D Chloride 115 H Carbon Dioxide 23.7 Anion Gap 8 BUN 91 H Creatinine 1.96 H Estimated GFR 33 L POC Glucose 107 Random Glucose 119 H Calcium 7.7 L Phosphorus 3.3 Magnesium 2.9 H Total Bilirubin 1.1 H AST 76 H ALT 102 H Alkaline Phosphatase 102 Ammonia Total Protein 7.1 Albumin 3.2 L Triglycerides Cholesterol LDL Cholesterol, Calc HDL Cholesterol Cholesterol/HDL Ratio 01/27/18 01/27/18 01/28/18 17:39 20:00 05:37 WBC RBC Hgb Hct MCV MCH MCHC RDW Plt Count MPV Neut % (Auto) Lymph % (Auto) [place] % (Auto) Eos % (Auto) Baso % (Auto) Neut # (Auto) Lymph # (Auto) [place] # (Auto) Eos # (Auto) Baso # (Auto) WBC Differential Differential Comment Puncture Site Patient Temperature O2 Saturation ABG pH ABG pCO2 ABG pO2 ABG HCO3 ABG O2 Content ABG Base Excess ABG Methemoglobin Mg Test Hemoglobin Carboxyhemoglobin O2 Delivery Device Vent Setting Inspired O2 Critical Value Sodium Potassium Chloride Carbon Dioxide Anion Gap BUN Creatinine Estimated GFR POC Glucose 112 H 128 H 103 Random Glucose Calcium Phosphorus Magnesium Total Bilirubin AST ALT Alkaline Phosphatase Ammonia Total Protein Albumin Triglycerides Cholesterol LDL Cholesterol, Calc HDL Cholesterol Cholesterol/HDL Ratio 01/28/18 01/28/18 01/28/18 06:03 06:03 06:03 WBC 9.2 RBC 3.55 L Hgb 10.5 L Hct 31.0 L MCV 87.4 MCH 29.6 MCHC 33.9 RDW 15.0 Plt Count 237 MPV 10.0 Neut % (Auto) 78.1 H Lymph % (Auto) 10.1 [place] % (Auto) 7.3 Eos % (Auto) 3.9 Baso % (Auto) 0.6 Neut # (Auto) 7.2 Lymph # (Auto) 0.9 L [place] # (Auto) 0.7 Eos # (Auto) 0.4 Baso # (Auto) 0.1 WBC Differential . Differential Comment Auto diff final Puncture Site Patient Temperature O2 Saturation ABG pH ABG pCO2 ABG pO2 ABG HCO3 ABG O2 Content ABG Base Excess ABG Methemoglobin Mg Test Hemoglobin Carboxyhemoglobin O2 Delivery Device Vent Setting Inspired O2 Critical Value Sodium 153 H Potassium 4.0 D Chloride 121 H Carbon Dioxide 25.2 Anion Gap 7 BUN 83 H Creatinine 1.69 H Estimated GFR 39 L POC Glucose Random Glucose 94 Calcium 8.6 D Phosphorus 3.7 Magnesium 2.9 H Total Bilirubin 1.0 AST 45 H ALT 88 H Alkaline Phosphatase 102 Ammonia 25 Total Protein 7.2 Albumin 3.1 L Triglycerides Cholesterol LDL Cholesterol, Calc HDL Cholesterol Cholesterol/HDL Ratio 01/28/18 12:15 WBC RBC Hgb Hct MCV MCH MCHC RDW Plt Count MPV Neut % (Auto) Lymph % (Auto) [place] % (Auto) Eos % (Auto) Baso % (Auto) Neut # (Auto) Lymph # (Auto) [place] # (Auto) Eos # (Auto) Baso # (Auto) WBC Differential Differential Comment Puncture Site Patient Temperature O2 Saturation ABG pH ABG pCO2 ABG pO2 ABG HCO3 ABG O2 Content ABG Base Excess ABG Methemoglobin Mg Test Hemoglobin Carboxyhemoglobin O2 Delivery Device Vent Setting Inspired O2 Critical Value Sodium Potassium Chloride Carbon Dioxide Anion Gap BUN Creatinine Estimated GFR POC Glucose 98 Random Glucose Calcium Phosphorus Magnesium Total Bilirubin AST ALT Alkaline Phosphatase Ammonia Total Protein Albumin Triglycerides Cholesterol LDL Cholesterol, Calc HDL Cholesterol Cholesterol/HDL Ratio Result Diagrams: 01/28/18 06:03 01/28/18 06:03 Microbiology: Microbiology 01/20/18 05:51 Aerobic Blood Culture - Final Blood - Peripheral No growth in 5 days Anaerobic Blood Culture - Final No growth in 5 days 01/20/18 06:01 Aerobic Blood Culture - Final Blood - Peripheral No growth in 5 days Anaerobic Blood Culture - Final No growth in 5 days Imaging: Abdomen/Pelvis CT 01/16/18 04:21 CONCLUSION: 1. Bilateral ureteral stents are in place and there is mild distention of the collecting systems bilaterally. Both kidneys enhance heterogeneously. 2. 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 01/22/18 05:00 CONCLUSION: 1. No significant interval change. 2. Stable large 6.1 x 3.9 cm left occipital abnormality, as above. Differential considerations include mass versus evolving hemorrhagic infarct. Consider contrast enhanced MRI examination for further characterization. . Carotid Doppler Study 01/23/18 00:00 CONCLUSION: 1. Right Internal Carotid Artery: Findings indicate <50% stenosis. 2. Left Internal Carotid Artery: Findings indicate 50-69% stenosis. This is likely in the higher aspect of this range. Chest X-Ray 01/28/18 06:00 CONCLUSION: Endotracheal tube and nasogastric tube no longer seen. Lung volumes are low and there is chronic cardiac silhouette enlargement. No acute cardiopulmonary disease identified. Procedures: 01/16 central line right IJ 01/16 intubated Assessment and Plan - Disease Oriented Problem List (1) Bladder tumor (2) Meatal stenosis (3) History of bladder cancer (4) Acute UTI (5) Acute kidney injury (6) Sepsis (7) Respiratory failure - Symptom Scale (1) Dyspnea 0-10 Scale: 0 (2) Encephalopathy 0-10 Scale: 0 (3) Pain 0-10 Scale: 0 Pertinent Non-Medical Issues: Psychosocial: Born and raised in [place]. 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 Supported by , children, grandchildren as well as close friends. 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 Per [place] statutes his would be appropriate legal proxy. Palliative care will attempt to assist with completion of written advanced directives in coming days now that patient is off vent and encephalopathy is improving. Ethical issues impacting care: No ethical issues identified. Important Contacts: Lanie Cheung [phone], cell [phone] Prognosis: This patient was initially admitted with generalized symptoms of nausea, weakness but overall not feeling well. During hospital course has had worsening sepsis, multiorgan failure. He has recent diagnoses of bladder cancer. Given advanced age, Multiorgan issues, high risk for ongoing complications and setbacks. Code Status: Full Code Plan: Patient was extubated 01/28/18, will follow to determine patient's ability to make his own medical decisions in the coming days. Per [place] statutes his would be appropriate legal proxy. Palliative care will attempt to assist with completion of written advanced directives and clarification of goals of medical treatment with patient in coming days now that patient is off vent and encephalopathy is improving. Goals: Goals remain aggressive. wants REINTUBATION and continue all available treatments at this time. She remains hopeful he may recover enough to return home after rehab course. Possible pt may be able to participate in decision making upon extubation though not fully known how clear will be. CODE STATUS:full code SYMPTOMS: --Dyspnea Extubated 01/28/18. s/p CVA,now on room air. --Dysphagia- potential r/t CVA ; 01/[address] [facility] and nectar thick liquids. --Encephalopathy-multifactorial, metabolic. Multiorgan failure. High risk for future CVA. Improving, hopefully patient will continue to improve to be able to participate in goals of medical treatment. --Pain-currently with no signs or symptoms of pain, potential sources would include bedbound status, recent invasive procedures, including cystoscopy. Nods No to pain. No indications for pain medication at this time. We will continue to evaluate. Palliative care will continue to follow during hospital course as condition evolves, to assist patient/decision-maker with understanding of medical conditions, weighing benefits/burdens of treatment options, for clarification of goals of treatment. Additionally will assist with any symptoms of palliative concern Attestation Attestation: To help prompt me to consider important information that might be impacting today's encounter and assessment, information from prior notes written by myself or my colleagues may have been "brought forward" into today's note. My signature on this note, however, is an attestation that I personally performed the exam, history, and/or decision-making noted today, and, unless otherwise indicated, the interactions with patient, family, and staff as well as the review of records all occurred today. I also attest that the listed assessment and stated plan reflect my best clinical judgment today based on the combination of historical information, prior notes, and today's exam/ interactions. When time spent is documented, it refers only to time spent today by the signer, or if indicated, combined time spent today by collaborating physician/nurse practitioner.
--- NOTE | 2018-01-28 15:40 | P.PNNP ---
Subjective Interval history: Patient is more alert, now oriented times 3, no SOB, on room air. Physical Exam Vital signs: Vital Signs 01/27/18 15:56 01/27/18 16:00 01/27/18 20:00 Temperature 97.8 F 98.2 F Pulse Rate 60 60 60 Respiratory Rate 18 23 20 Blood Pressure 114/56 L 143/65 H Pulse Oximetry 98 100 01/27/18 20:15 01/27/18 22:00 01/27/18 23:38 Temperature Pulse Rate 60 60 60 Respiratory Rate 18 24 Blood Pressure Pulse Oximetry 01/28/18 00:00 01/28/18 02:00 01/28/18 04:00 Temperature 98.0 F 98 F Pulse Rate 60 60 60 Respiratory Rate 20 22 Blood Pressure 159/71 H 134/58 L Pulse Oximetry 98 100 01/28/18 05:58 01/28/18 07:40 01/28/18 08:00 Temperature 98.3 F Pulse Rate 60 60 61 Respiratory Rate 18 21 Blood Pressure 163/72 H Pulse Oximetry 100 100 01/28/18 10:00 01/28/18 11:07 01/28/18 11:32 Temperature Pulse Rate 60 60 Respiratory Rate 18 Blood Pressure Pulse Oximetry 99 01/28/18 12:00 01/28/18 14:00 01/28/18 15:12 Temperature 97.6 F Pulse Rate 60 61 61 Respiratory Rate 24 18 Blood Pressure 153/67 H Pulse Oximetry 97 Intake & Output 01/27/18 01/28/18 01/28/18 18:59 06:59 18:59 Intake Total 50 / 50 54.5 / 54.5 Output Total 1200 / 1200 Balance 50 / 50 -1200 / -1200 54.5 / 54.5 Weight 87 kg Intake: IV 50 / 50 54.5 / 54.5 Precedex Inj 200 MCG In NS Inj 50 / 50 54.5 / 54.5 48 ML @ 0.2 MCG/KG/HR 4.51 mls/ hr IV.CONT TITRATE PRN Rx#: [id number] Output: Urine Amount (Catheter) 1200 / 1200 Indwelling Urethral Catheter 1200 / 1200 Other: Date of Last Bowel Movement 01/26/18 01/26/18 01/26/18 # Bowel Movements 0 Narrative: awake sitting up vff fa e sym moves allext well inc lue speech clear - Urinary Catheter Management Indwelling Urethral Catheter Cath placed during this visit: yes, but has since been removed by the nurse Reason for continuing: Chronic Urinary Retention Insertion date: 01/16/18 Insertion time: 17:30 Removal date: 01/28/18 Removal time: 14:00 Assessment and Plan - Assessment (1) Acute kidney injury Code(s): N17.9 - Acute kidney failure, unspecified Status: Acute Plan: Patient with Acute kidney injury and Hyperkalemia, Most likely has ATN due to hypotension, now BP is better, K is low, on replacement. K-Lyte 50 mEq given Creatinine continue to improve, Na. is 158. BUN and creatinine improved and patient is nonoliguric Replace potassium Patient has underlying Pseudomonas infection on cefepime, repeat cultures are negative on free water via GT. Avoid Nephrotoxins. Improved mental status Neurology following. Also seen by Palliative care. Creatinine continue to improve, now 1.69, Sodium increase again to 153, started oral intake, encourage fluid intake. D/W the family at bed side. (2) Sepsis Code(s): A41.9 - Sepsis, unspecified organism Status: Acute Plan: Blood cultures positive for Pseudomonas on cefepime (3) Acute UTI Code(s): N39.0 - Urinary tract infection, site not specified Status: Acute Plan: Has cefepime for Pseudomonas. (4) Respiratory failure Code(s): J96.90 - Respiratory failure, unspecified, unspecified whether with hypoxia or hypercapnia Status: Acute Plan: Patient is intubated on very mild sedation.
[2018-01-29] MEDS: Oral Hygiene Kit OROPHARYNG SCH ×5 (00:25→23:49)
[2018-01-29] MEDS: Artificial Tears Opth Drops 15 ML Bottle EACH EYE SCH ×4 (00:25→23:48)
[2018-01-29] MEDS: Labetalol HCl Inj 20 MG/4 ML Vial IV.PUSH PRN (01:49)
[2018-01-29] MEDS: hydrALAZINE HCl Inj 20 MG/ML Vial IV.PUSH PRN (03:54)
[2018-01-29 05:23] LABS: Baso # (Auto) 0.1 th/mm3 (0.0-0.2); Baso % (Auto) 0.5 % (0.0-2.0); Eos # (Auto) 0.5 th/mm3 (0.0-0.4); Eos % (Auto) 4.3 % (0.0-4.0); Hematocrit 30.7 % (39.0-51.0); Hemoglobin 10.2 gm/dL (13.0-17.0); Lymph # (Auto) 1.2 th/mm3 (1.0-4.8); Lymph % (Auto) 10.2 % (9.0-44.0); Mean Corpuscular HGB Conc 33.3 % (32.0-36.0); Mean Corpuscular Hemoglobin 29.1 pg (27.0-34.0); Mean Corpuscular Volume 87.2 fL (80.0-100.0); Mean Platelet Volume 10.2 fL (7.0-11.0); Mono # (Auto) 0.9 th/mm3 (0.0-0.9); Mono % (Auto) 7.3 % (0.0-8.0); Neut # (Auto) 9.2 th/mm3 (1.8-7.7); Neut % (Auto) 77.7 % (16.0-70.0); Platelet Count 254 th/mm3 (150-450); Red Blood Count 3.52 mil/mm3 (4.50-5.90); Red Cell Distribution Width 14.8 % (11.6-17.2); White Blood Count 11.9 th/mm3 (4.0-11.0)
[2018-01-29 05:50] LABS: Calcium 8.3 mg/dL (8.5-10.1); Carbon Dioxide 20.8 meq/L (21.0-32.0); Magnesium 2.5 mg/dL (1.5-2.5); Phosphorus 2.9 mg/dL (2.5-4.9); Potassium 4.1 meq/L (3.5-5.1)
[2018-01-29] MEDS: Senna/Docusate Sodium 8.6/50 MG Tablet PO SCH ×2 (08:17→20:48)
[2018-01-29] MEDS: amLODIPine 5 MG Tablet PO SCH (08:17)
[2018-01-29] MEDS: Carvedilol 12.5 MG Tablet PO SCH ×2 (08:17→20:47)
[2018-01-29] MEDS: Insulin NovoLOG Aspart Correctional Sugar Inj SQ SCH ×4 (09:13→20:47)
[2018-01-29] MEDS: Polyethylene Glycol 3350 17 GM Packet PO SCH ×2 (09:14→20:48)
[2018-01-29] MEDS: Chlorhexidine 0.12% Oral Kit 15 ML UDC OROPHARYNG SCH ×2 (09:14→20:46)
--- NOTE | 2018-01-29 12:18 | P.PNIM ---
Subjective Interval history: c/o nasal congestion c/o poor sleep. family asking for sleeping pill. Physical Exam Vital signs: Last Vital Signs Temp 98.2 F 01/29/18 08:00 Pulse 67 01/29/18 11:28 Resp 24 01/29/18 11:28 BP 179/84 H 01/29/18 07:00 Pulse Ox 95 01/29/18 08:00 Narrative: heart reg lung course bs abd s/nt ext no edema Results Labs CBC & Chem 7: 01/29/18 03:45 01/29/18 03:45 Assessment and Plan Plan - Pt is an 82 y/o male with bladder cancer who recently underwent meatal dilation/bilateral retrograde pyelograms/bladder biopsy with fulguration/ bilateral ureteroscopy with laser ablation of distal ureteral masses/right ureteroscopic stone extraction and bilateral ureteral stent placement with Dr. Feliciano on 01/05/18. . She states that the pt has not been eating or drinking well over the last few weeks and has been somewhat weaker than normal. Then yesterday after the Talbot was removed the pt had difficulty urinating and last night started becoming more nauseated and started vomiting during the night last night. Pts reports that he had similar issues in August 2017 after a previous urological procedure after Talbot removal but was not this bad and was treated for a UTI at that time. 1. 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 01/23 large 6.1 x 3.9 cm left occipital abnormality, probable hemorrhagic infarct Followed by Dr. Kemp/neurology -Neurosurgery consulted for possible hemorrhagic infarct left parieto- occipital. Recommend repeat CT brain in 2 weeks with contrast if able cannot rule out mass lesion or abscess into continue conservative management. Dr. Doshi returns 01/31 - re -recommendation regarding antiplatelet or anticoagulation -Altered mental status/encephalopathy secondary to metabolic encephalopathy and severe sepsis and acute stroke -Has mild midline shift keep sodium 145-150. Currently 153 Continue baby aspirin 81 mg daily per neurology transfer to med/surg today. Bronchiectasis/Restrictive lung disease/COPD, chronically on 2L of supplemental O2 Obstructive sleep apnea on CPAP at night Acute hypoxemic respiratory failure Extubated 01/27. Currently on room air. -Albuterol/ipratropium aerosols every 4 hours with albuterol aerosols every 2 hours as needed -Incentive spirometry while awake CHF/systolic Hyperlipidemia HTN Atrial fibrillation currently rate control AAA/Thoracic aortic aneurysm -Developed A. fib with RVR 01/17/2018. Diltiazem 30 mg 4 times daily initiated.. This is discontinued 01/27 carvedilol 12.5 twice daily. resumed amlodipine at 5 mg daily -Currently rate controlled but remains in A. fib, off IV heparin due to hemorrhagic infarct -Diuresis per nephrology. -2D echo 07/24/17: Estimated EF 45-50%, abnormal LV diastolic function, mild to moderate AR -Currently on atorvastatin 10 mg daily for hyperlipidemia History meatal stenosis BPH Status post recent bilateral ureteroscopy suspicious for recurrent urothelial cancer involving both ureteral orifices. Status post recent right ureteroscopy with laser lithotripsy of distal ureteral calculus Status post bilateral ureteral stent placement Acute kidney injury likely secondary to hypoperfusion/hypotension Noninvasive low-grade papillary urethrothelial carcinoma -Monitor renal function closely. Talbot catheter. Patient's previous indwelling catheter was removed by Dr. Feliciano 01/16/18 -Urology Dr. Feliciano is following -Nephrology Dr. Duarte following for for worsening oliguric renal failure creatinine Monitor for need for hemodialysis -CT of abdomen pelvis on admission showed bilateral ureteral stents are in place and there is mild distention of the collecting systems bilaterally. Continue tamsulosin 0.4 mg daily Pseudomonas bacteremia/urosepsis -Antibiotics continue levofloxacin. Discontinued cefepime 01/26 -ID consulted-Dr. Foster following - LINES: Utilize peripheral IV. Central line if indicated -Right IJ central line placed 01/16/2018. Respiratory therapist placed art line 01/16/18-central line and arterial line discontinued 01/20 Progress Note: Quality VTE Deep Vein Thrombosis/Pulmonary Embolism Present on Admission: No
--- NOTE | 2018-01-29 15:24 | P.PNPAL ---
Reason for Visit Reason for visit: a. To assist with evaluation and management of symptoms including: Encephalopathy, pain, dyspnea b. To assist medical decision maker(s) with: better understanding of current medical conditions; weighing benefits/burdens of medical treatment options; making medical treatment decisions. Subjective Subjective/Interval History: Patient seen to follow up on comfort, goals w pt/decision maker. stable s/p medical extubation yesterday. Tolerating NC 3L. transfer out of ICU to medical floor pending. ST following, ongoing ST for cognitive and dysphagia therapies. Rec. puree and nectar thick liquid. PT following, yesterday tolerating sitting on edge of bed w 1 person assist. CBC stable. WBC 11.9. BUN/creatinine improving, 65/1.65. CM working in d/c planning/rehab evaluation, request sent to [facility] for eval. Pt seen as he is being transferred from ICU to medical room, accompanied him and on this transport, then further evaluated/examined him upon arrival to room 1405. He is alert, partially oriented. Knows he is in hospital for stroke, knows year 2018. Unable to state month, gestures at her colorful [place] sweater asking the month, and he keeps saying "De-sixties". Speech is very soft , and some delay in answering questions. Does move all 4 extremities spont, and to commands, left weaker than right. Explore with current condition, requiring continued rehab efforts, modified diet required. Explore still remains at risk for complications/ setbacks. She endorses pt seems more tired today, less verbal, that pt more verbal yesterday. Educate that any activity level likely to cause fatigue and require recovery time. She also reports he had difficulty sleeping and was restless much of the night, review that sedative or sleeping agents might be avoided due to neuro/cognitive status, will monitor ongoing. Pt too weak /fatigued today to further discuss goals, but now that condition is improving may be able to participate more in goals/medical decision making. remains hopeful that he will be able to return home after rehab course. Advance Directives Living Will: Never completed Health Care Surrogate: Never completed Durable Power of Farm Equipment Maintenance Supervisor: Never completed Health Care Surrogate Name and Number: HCP: Lanie Cheung, : [phone] Objective Vital Signs: Vital Signs 01/28/18 15:12 01/28/18 15:31 01/28/18 16:00 Temperature 98.0 F Pulse Rate 61 62 62 Respiratory Rate 18 27 H 32 H Blood Pressure 148/67 H 152/66 H Pulse Oximetry 97 97 01/28/18 16:30 01/28/18 17:00 01/28/18 17:31 Temperature Pulse Rate 66 64 65 Respiratory Rate 35 H 34 H 35 H Blood Pressure 161/72 H 164/70 H 193/76 H Pulse Oximetry 96 95 95 01/28/18 17:36 01/28/18 18:00 01/28/18 18:01 Temperature Pulse Rate 65 65 64 Respiratory Rate 36 H 34 H 31 H Blood Pressure 159/72 H 171/76 H Pulse Oximetry 94 L 95 95 01/28/18 18:19 01/28/18 18:30 01/28/18 19:00 Temperature Pulse Rate 67 66 64 Respiratory Rate 28 H 31 H 25 H Blood Pressure 144/68 H 136/63 Pulse Oximetry 95 95 96 01/28/18 19:01 01/28/18 19:30 01/28/18 19:40 Temperature Pulse Rate 65 68 67 Respiratory Rate 26 H 29 H 20 Blood Pressure 139/60 155/67 H Pulse Oximetry 96 96 01/28/18 19:41 01/28/18 20:00 01/28/18 20:31 Temperature 98.3 F Pulse Rate 69 68 Respiratory Rate 56 H 34 H Blood Pressure 156/88 H 176/74 H Pulse Oximetry 95 95 95 01/28/18 21:00 01/28/18 21:01 01/28/18 21:31 Temperature Pulse Rate 70 70 67 Respiratory Rate 30 H 34 H 36 H Blood Pressure 173/74 H 176/74 H Pulse Oximetry 92 L 93 L 95 01/28/18 22:00 01/28/18 22:01 01/28/18 22:30 Temperature Pulse Rate 68 69 65 Respiratory Rate 39 H 43 H 34 H Blood Pressure 164/74 H 170/70 H Pulse Oximetry 94 L 93 L 94 L 01/28/18 23:00 01/28/18 23:16 01/28/18 23:30 Temperature Pulse Rate 64 63 60 Respiratory Rate 36 H 35 H 29 H Blood Pressure 164/74 H 149/68 H 156/67 H Pulse Oximetry 94 L 92 L 94 L 01/28/18 23:34 01/28/18 23:35 01/29/18 00:00 Temperature 97.4 F L Pulse Rate 61 61 Respiratory Rate 18 29 H Blood Pressure 144/67 H Pulse Oximetry 94 L 94 L 01/29/18 00:31 01/29/18 01:00 01/29/18 01:01 Temperature Pulse Rate 61 63 63 Respiratory Rate 29 H 29 H 27 H Blood Pressure 161/70 H 162/70 H Pulse Oximetry 94 L 94 L 94 L 01/29/18 01:30 01/29/18 02:00 01/29/18 02:01 Temperature Pulse Rate 60 60 60 Respiratory Rate 23 30 H 29 H Blood Pressure 166/72 H 153/70 H Pulse Oximetry 96 95 95 01/29/18 02:30 01/29/18 03:00 01/29/18 03:01 Temperature Pulse Rate 62 64 65 Respiratory Rate 30 H 44 H 38 H Blood Pressure 170/74 H 177/72 H Pulse Oximetry 94 L 94 L 95 01/29/18 03:18 01/29/18 03:20 01/29/18 03:31 Temperature Pulse Rate 63 64 Respiratory Rate 25 H 35 H Blood Pressure 170/94 H Pulse Oximetry 94 L 97 01/29/18 03:50 01/29/18 04:00 01/29/18 04:31 Temperature 97.6 F Pulse Rate 64 66 65 Respiratory Rate 32 H 34 H 30 H Blood Pressure 196/81 H 169/73 H 170/70 H Pulse Oximetry 96 96 96 01/29/18 05:00 01/29/18 05:30 01/29/18 06:00 Temperature Pulse Rate 62 68 62 Respiratory Rate 23 22 24 Blood Pressure 170/83 H 160/89 H 172/87 H Pulse Oximetry 95 95 95 01/29/18 06:31 01/29/18 06:41 01/29/18 07:00 Temperature Pulse Rate 66 68 68 Respiratory Rate 29 H 29 H 31 H Blood Pressure 172/74 H 175/79 H 179/84 H Pulse Oximetry 95 95 95 01/29/18 07:17 01/29/18 07:30 01/29/18 07:39 Temperature Pulse Rate 68 67 66 Respiratory Rate 27 H 30 H 21 Blood Pressure 172/78 H 191/83 H Pulse Oximetry 96 96 96 01/29/18 07:54 01/29/18 08:00 01/29/18 08:01 Temperature 98.2 F Pulse Rate 69 67 68 Respiratory Rate 31 H 31 H 26 H Blood Pressure 189/81 H 178/119 H Pulse Oximetry 97 97 97 01/29/18 08:19 01/29/18 08:24 01/29/18 08:30 Temperature Pulse Rate 67 70 71 Respiratory Rate 28 H 30 H 29 H Blood Pressure 182/102 H 193/91 H 189/82 H Pulse Oximetry 96 96 97 01/29/18 09:00 01/29/18 09:01 01/29/18 09:16 Temperature Pulse Rate 76 77 71 Respiratory Rate 39 H 36 H 29 H Blood Pressure 167/72 H 160/73 H Pulse Oximetry 96 97 96 01/29/18 09:30 01/29/18 10:00 01/29/18 10:01 Temperature Pulse Rate 67 65 66 Respiratory Rate 35 H 33 H 34 H Blood Pressure 171/71 H 152/70 H Pulse Oximetry 96 95 96 01/29/18 10:30 01/29/18 11:00 01/29/18 11:01 Temperature Pulse Rate 69 66 66 Respiratory Rate 31 H 31 H 29 H Blood Pressure 164/73 H 177/75 H Pulse Oximetry 95 95 95 01/29/18 11:28 01/29/18 11:33 01/29/18 11:48 Temperature Pulse Rate 67 75 61 Respiratory Rate 24 41 H 33 H Blood Pressure 174/90 H 150/67 H Pulse Oximetry 94 L 97 01/29/18 12:00 01/29/18 12:31 01/29/18 12:38 Temperature 97.1 F L Pulse Rate 60 68 61 Respiratory Rate 30 H 39 H 31 H Blood Pressure 144/65 H 172/76 H 149/63 H Pulse Oximetry 98 96 97 01/29/18 13:00 Temperature Pulse Rate 60 Respiratory Rate 31 H Blood Pressure 143/64 H Pulse Oximetry 97 Intake & Output 01/28/18 01/29/18 01/29/18 18:59 06:59 18:59 Intake Total 854.5 / 854.5 420 / 420 400 / 400 Output Total 1000 / 1000 1000 / 1000 600 / 600 Balance -145.5 / -145.5 -580 / -580 -200 / -200 Weight 84.8 kg Intake: IV 54.5 / 54.5 Precedex Inj 200 MCG In NS Inj 54.5 / 54.5 48 ML @ 0.2 MCG/KG/HR 4.51 mls/ hr IV.CONT TITRATE PRN Rx#: [id number] Oral 800 / 800 420 / 420 400 / 400 Output: Urine 300 / 300 1000 / 1000 600 / 600 Urine Amount (Catheter) 700 / 700 Indwelling Urethral Catheter 700 / 700 Other: Date of Last Bowel Movement 01/28/18 01/28/18 # Bowel Movements 2 Physical Exam: CONSTITUTIONAL/GENERAL: This is an adequately nourished patient, alert, no distress, fatigued TUBES/LINES/DRAINS: left pacemaker, PIVs, external catheter. NC SKIN: No jaundice, rashes, or lesions. No wounds seen anteriorly. Skin warm and dry. EYES: pupils equal and reactive. CARDIOVASCULAR: HR 60, no murmur. pedal pulses are faint. bilateral feet warm RESPIRATORY/CHEST: Symmetric, unlabored respirations on NC 3L. Breath sounds equal bilaterally. GASTROINTESTINAL: Abdomen soft, nondistended. Bowel sounds present. GENITOURINARY: Without palpable bladder distension. external catheter in place. Clear yellow urine MUSCULOSKELETAL: Extremities without clubbing, cyanosis, or edema. No mottling or clubbing. NEUROLOGICAL: alert nods to questions, speaks weakly/voice soft. Delay in answering questions. Oriented x2-3, difficulty answering all questions, expressive aphasia. moves all 4 extremities, follows commands, slight delayed movement left side, weaker left side PSYCHIATRIC: no obvious anxiety or depression. quiet. Diagnostic Tests Laboratory: Laboratory Results - last 72 hr 01/26/18 01/26/18 01/27/18 16:55 23:39 04:01 WBC 11.7 H RBC 3.31 L Hgb 9.6 L Hct 29.7 L MCV 89.6 MCH 29.1 MCHC 32.4 RDW 15.2 Plt Count 200 MPV 11.0 Prelim Diff (Auto) Neut % (Auto) 82.3 H Lymph % (Auto) 8.4 L Logan % (Auto) 5.4 Eos % (Auto) 3.6 Baso % (Auto) 0.3 Neut # (Auto) 9.6 H Lymph # (Auto) 1.0 Logan # (Auto) 0.6 Eos # (Auto) 0.4 Baso # (Auto) 0.0 WBC Differential . Diff Scan Differential Comment Auto diff final Sodium Potassium Chloride Carbon Dioxide Anion Gap BUN Creatinine Estimated GFR POC Glucose 113 H 116 H Random Glucose Calcium Phosphorus Magnesium Total Bilirubin AST ALT Alkaline Phosphatase Ammonia Total Protein Albumin 01/27/18 01/27/18 01/27/18 04:01 11:51 17:39 WBC RBC Hgb Hct MCV MCH MCHC RDW Plt Count MPV Prelim Diff (Auto) Neut % (Auto) Lymph % (Auto) Logan % (Auto) Eos % (Auto) Baso % (Auto) Neut # (Auto) Lymph # (Auto) Logan # (Auto) Eos # (Auto) Baso # (Auto) WBC Differential Diff Scan Differential Comment Sodium 147 H Potassium 4.8 D Chloride 115 H Carbon Dioxide 23.7 Anion Gap 8 BUN 91 H Creatinine 1.96 H Estimated GFR 33 L POC Glucose 107 112 H Random Glucose 119 H Calcium 7.7 L Phosphorus 3.3 Magnesium 2.9 H Total Bilirubin 1.1 H AST 76 H ALT 102 H Alkaline Phosphatase 102 Ammonia Total Protein 7.1 Albumin 3.2 L 01/27/18 01/28/18 01/28/18 20:00 05:37 06:03 WBC 9.2 RBC 3.55 L Hgb 10.5 L Hct 31.0 L MCV 87.4 MCH 29.6 MCHC 33.9 RDW 15.0 Plt Count 237 MPV 10.0 Prelim Diff (Auto) Neut % (Auto) 78.1 H Lymph % (Auto) 10.1 Logan % (Auto) 7.3 Eos % (Auto) 3.9 Baso % (Auto) 0.6 Neut # (Auto) 7.2 Lymph # (Auto) 0.9 L Logan # (Auto) 0.7 Eos # (Auto) 0.4 Baso # (Auto) 0.1 WBC Differential . Diff Scan Differential Comment Auto diff final Sodium Potassium Chloride Carbon Dioxide Anion Gap BUN Creatinine Estimated GFR POC Glucose 128 H 103 Random Glucose Calcium Phosphorus Magnesium Total Bilirubin AST ALT Alkaline Phosphatase Ammonia Total Protein Albumin 01/28/18 01/28/18 01/28/18 06:03 06:03 12:15 WBC RBC Hgb Hct MCV MCH MCHC RDW Plt Count MPV Prelim Diff (Auto) Neut % (Auto) Lymph % (Auto) Logan % (Auto) Eos % (Auto) Baso % (Auto) Neut # (Auto) Lymph # (Auto) Logan # (Auto) Eos # (Auto) Baso # (Auto) WBC Differential Diff Scan Differential Comment Sodium 153 H Potassium 4.0 D Chloride 121 H Carbon Dioxide 25.2 Anion Gap 7 BUN 83 H Creatinine 1.69 H Estimated GFR 39 L POC Glucose 98 Random Glucose 94 Calcium 8.6 D Phosphorus 3.7 Magnesium 2.9 H Total Bilirubin 1.0 AST 45 H ALT 88 H Alkaline Phosphatase 102 Ammonia 25 Total Protein 7.2 Albumin 3.1 L 01/28/18 01/28/18 01/29/18 17:48 21:18 03:45 WBC 11.9 H RBC 3.52 L Hgb 10.2 L Hct 30.7 L MCV 87.2 MCH 29.1 MCHC 33.3 RDW 14.8 Plt Count 254 MPV 10.2 Prelim Diff (Auto) Slide review pending Neut % (Auto) 77.7 H Lymph % (Auto) 10.2 Logan % (Auto) 7.3 Eos % (Auto) 4.3 H Baso % (Auto) 0.5 Neut # (Auto) 9.2 H Lymph # (Auto) 1.2 Logan # (Auto) 0.9 Eos # (Auto) 0.5 H Baso # (Auto) 0.1 WBC Differential . Diff Scan Auto diff confirmed Differential Comment . Sodium Potassium Chloride Carbon Dioxide Anion Gap BUN Creatinine Estimated GFR POC Glucose 97 117 H Random Glucose Calcium Phosphorus Magnesium Total Bilirubin AST ALT Alkaline Phosphatase Ammonia Total Protein Albumin 01/29/18 01/29/18 03:45 12:16 WBC RBC Hgb Hct MCV MCH MCHC RDW Plt Count MPV Prelim Diff (Auto) Neut % (Auto) Lymph % (Auto) Logan % (Auto) Eos % (Auto) Baso % (Auto) Neut # (Auto) Lymph # (Auto) Logan # (Auto) Eos # (Auto) Baso # (Auto) WBC Differential Diff Scan Differential Comment Sodium 148 H Potassium 4.1 Chloride 117 H Carbon Dioxide 20.8 L Anion Gap 10 BUN 65 H Creatinine 1.64 H Estimated GFR 40 L POC Glucose 113 H Random Glucose 105 Calcium 8.3 L Phosphorus 2.9 Magnesium 2.5 Total Bilirubin AST ALT Alkaline Phosphatase Ammonia Total Protein Albumin Result Diagrams: 01/29/18 03:45 01/29/18 03:45 Imaging: Impressions Chest X-Ray 01/28/18 06:00 CONCLUSION: Endotracheal tube and nasogastric tube no longer seen. Lung volumes are low and there is chronic cardiac silhouette enlargement. No acute cardiopulmonary disease identified. Procedures: 01/16 central line right IJ 01/16 intubated Assessment and Plan - Disease Oriented Problem List (1) Bladder tumor (2) Meatal stenosis (3) History of bladder cancer (4) Acute UTI (5) Acute kidney injury (6) Sepsis (7) Respiratory failure Pertinent Non-Medical Issues: Psychosocial: Born and raised in [place]. 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 Supported by , children, grandchildren as well as close friends. 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 Per [place] statutes his would be appropriate legal proxy. Palliative care will attempt to assist with completion of written advanced directives in coming days now that patient is off vent and encephalopathy is improving. Ethical issues impacting care: No ethical issues identified. Important Contacts: Lanie Cheung [phone], cell [phone] Prognosis: This patient was initially admitted with generalized symptoms of nausea, weakness but overall not feeling well. During hospital course has had worsening sepsis, multiorgan failure. He has recent diagnoses of bladder cancer. Given advanced age, Multiorgan issues, high risk for ongoing complications and setbacks. Code Status: Full Code Plan: Patient was extubated 01/28/18, will follow to determine patient's ability to make his own medical decisions in the coming days. Per [place] statutes his would be appropriate legal proxy. Palliative care will attempt to assist with completion of written advanced directives and clarification of goals of medical treatment with patient in coming days now that patient is off vent and encephalopathy is improving. Goals: Goals remain aggressive. wants REINTUBATION and continue all available treatments at this time. She remains hopeful he may recover enough to return home after rehab course. Pt too weak /fatigued today to further discuss goals, but now that condition is improving may be able to participate more in goals/medical decision making. CODE STATUS:full code SYMPTOMS: --Dyspnea Extubated 12/12/18. s/p CVA,now on NC 3L. risk for aspiration, modified diet. --Dysphagia- potential r/t CVA ; 01/[address] [facility]. --Encephalopathy-multifactorial, metabolic. Multiorgan failure. High risk for future CVA. Improving, hopefully patient will continue to improve to be able to participate in goals of medical treatment. --Pain-currently with no signs or symptoms of pain, potential sources would include bedbound status, recent invasive procedures, including cystoscopy. indicates he has not had any c/o pain. He denies pain for my assessment. No indications for pain medication at this time. We will continue to evaluate. Palliative care will continue to follow during hospital course as condition evolves, to assist patient/decision-maker with understanding of medical conditions, weighing benefits/burdens of treatment options, for clarification of goals of treatment. Additionally will assist with any symptoms of palliative concern Attestation Attestation: To help prompt me to consider important information that might be impacting today's encounter and assessment, information from prior notes written by myself or my colleagues may have been "brought forward" into today's note. My signature on this note, however, is an attestation that I personally performed the exam, history, and/or decision-making noted today, and, unless otherwise indicated, the interactions with patient, family, and staff as well as the review of records all occurred today. I also attest that the listed assessment and stated plan reflect my best clinical judgment today based on the combination of historical information, prior notes, and today's exam/ interactions. When time spent is documented, it refers only to time spent today by the signer, or if indicated, combined time spent today by collaborating physician/nurse practitioner.
--- NOTE | 2018-01-29 16:19 | P.DIET ---
Nutritional Evaluation Type of nutrition evaluation: follow-up Nutrition consult regarding: Tube Feeding Screening comments: 01/18 TF review Objective - Diagnosis UTI, Dehydration, elevated troponin - Objective % IBW: 108 (IBW: 81kg) Body Weight Used for Calculations: IBW Energy Needs - Lower Range (kCal/kg): 25 Energy Needs - Upper Range (kCal/kg): 30 Lower Limit kCal/kg (kCals): 2,025 Upper Limit kCal/kg (kCals): 2,430 Lower Limit Protein Factor (Grams per Kg): 1 Upper Limit Protein Factor (Grams per Kg): 1.2 Lower Protein Needs (Protein): 87 Upper Protein Needs (Protein): 105 Dietitian Reviewed in Medical Record: Current diet, Curent medications, Intake & Output, Labs, Medical history Diet Order: Mech soft, 2gNa Speech Therapy Recommendations: Yes (mech soft w/ chopped meat, nectar thick) Objective Comments: PMH: bladder cancer, thoracic and abdominal aortic aneurysm, Bronchiectasis, Restrictive lung disease, COPD, CHF, Hyperlipidemia, HTN Labs include: BUN 65, Cr 1.64, GFR 40, POC glucose 103 117 113 UOP: 1300mL, LBM 01/28 Skin: pressure ulcers (midline sacrum, L buttocks) Assessment Assessment: Pt is at high nutritional risk r/t dx and current clinical status. Pt extubated on 01/28. ST notes reviewed, pt able to tolerate mech soft w/ chopped meat and nectar thick. Per MD note, pt was tolerating his diet. Wt noted, CBW = 84.6 (- 2.5kg since admission).Continue to monitor PO intake. Labs reviewed, dietitian following. Recommendations: 1. ST notes reviewed, pt able to tolerate mech soft w/ chopped meat and nectar thick 2. Continue to monitor PO intake 3. Dietitian following Dietitian to Monitor: Lab values, Intake & Output, Diet tolerance, PO Intake, Swallow recommendations, Medical course
[2018-01-29] MEDS: Temazepam 15 MG Capsule PO SCH (20:46)
[2018-01-30] MEDS: Oral Hygiene Kit OROPHARYNG SCH ×4 (04:16→23:26)
[2018-01-30] MEDS: Artificial Tears Opth Drops 15 ML Bottle EACH EYE SCH ×3 (06:18→23:26)
--- NOTE | 2018-01-30 09:38 | P.PNIM ---
Subjective Interval history: says he is eager to get oob today. Physical Exam Vital signs: Last Vital Signs Temp 97.7 F 01/30/18 08:00 Pulse 69 01/30/18 08:05 Resp 18 01/30/18 08:05 BP 169/72 H 01/30/18 08:00 Pulse Ox 96 01/30/18 08:05 Narrative: heart reg lung course bs abd s/nt ext no edema not completely oriented. Results Labs CBC & Chem 7: 01/29/18 03:45 01/29/18 03:45 Assessment and Plan Plan - Pt is an 82 y/o male with bladder cancer who recently underwent meatal dilation/bilateral retrograde pyelograms/bladder biopsy with fulguration/ bilateral ureteroscopy with laser ablation of distal ureteral masses/right ureteroscopic stone extraction and bilateral ureteral stent placement with Dr. Feliciano on 01/05/18. . She states that the pt has not been eating or drinking well over the last few weeks and has been somewhat weaker than normal. Then yesterday after the Talbot was removed the pt had difficulty urinating and last night started becoming more nauseated and started vomiting during the night last night. Pts reports that he had similar issues in August 2017 after a previous urological procedure after Talbot removal but was not this bad and was treated for a UTI at that time. 1. 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 01/23 large 6.1 x 3.9 cm left occipital abnormality, probable hemorrhagic infarct Followed by Dr. Kemp/neurology -Neurosurgery consulted for possible hemorrhagic infarct left parieto- occipital. Recommend repeat CT brain in 2 weeks with contrast if able cannot rule out mass lesion or abscess into continue conservative management. Dr. Doshi returns 01/31 - re -recommendation regarding antiplatelet or anticoagulation -Altered mental status/encephalopathy secondary to metabolic encephalopathy and severe sepsis and acute stroke -Has mild midline shift keep sodium 145-150. Currently 153 Continue baby aspirin 81 mg daily per neurology adjust bp control today daily PT. will need snf. Bronchiectasis/Restrictive lung disease/COPD, chronically on 2L of supplemental O2 Obstructive sleep apnea on CPAP at night Acute hypoxemic respiratory failure Extubated 01/27. Currently on room air. -Albuterol/ipratropium aerosols every 4 hours with albuterol aerosols every 2 hours as needed -Incentive spirometry while awake CHF/systolic Hyperlipidemia HTN Atrial fibrillation currently rate control AAA/Thoracic aortic aneurysm -Developed A. fib with RVR 01/17/2018. Diltiazem 30 mg 4 times daily initiated.. This is discontinued 01/27 carvedilol 12.5 twice daily. resumed amlodipine at 5 mg daily -Currently rate controlled but remains in A. fib, off IV heparin due to hemorrhagic infarct -Diuresis per nephrology. -2D echo 07/24/17: Estimated EF 45-50%, abnormal LV diastolic function, mild to moderate AR -Currently on atorvastatin 10 mg daily for hyperlipidemia History meatal stenosis BPH Status post recent bilateral ureteroscopy suspicious for recurrent urothelial cancer involving both ureteral orifices. Status post recent right ureteroscopy with laser lithotripsy of distal ureteral calculus Status post bilateral ureteral stent placement Acute kidney injury likely secondary to hypoperfusion/hypotension Noninvasive low-grade papillary urethrothelial carcinoma -Monitor renal function closely. Talbot catheter. Patient's previous indwelling catheter was removed by Dr. Feliciano 01/16/18 -Urology Dr. Feliciano is following -Nephrology Dr. Duarte following for for worsening oliguric renal failure creatinine Monitor for need for hemodialysis -CT of abdomen pelvis on admission showed bilateral ureteral stents are in place and there is mild distention of the collecting systems bilaterally. Continue tamsulosin 0.4 mg daily Pseudomonas bacteremia/urosepsis -Antibiotics continue levofloxacin. Discontinued cefepime 01/26 -ID consulted-Dr. Foster following - LINES: Utilize peripheral IV. Central line if indicated -Right IJ central line placed 01/16/2018. Respiratory therapist placed art line 01/16/18-central line and arterial line discontinued 01/20 Progress Note: Quality VTE Deep Vein Thrombosis/Pulmonary Embolism Present on Admission: No
[2018-01-30] MEDS: Insulin NovoLOG Aspart Correctional Sugar Inj SQ SCH ×4 (10:11→21:20)
[2018-01-30] MEDS: Chlorhexidine 0.12% Oral Kit 15 ML UDC OROPHARYNG SCH ×2 (10:12→21:20)
[2018-01-30] MEDS: Carvedilol 12.5 MG Tablet PO SCH ×2 (10:15→21:21)
[2018-01-30] MEDS: Polyethylene Glycol 3350 17 GM Packet PO SCH ×2 (10:15→21:47)
[2018-01-30] MEDS: Senna/Docusate Sodium 8.6/50 MG Tablet PO SCH ×2 (10:15→21:21)
--- NOTE | 2018-01-30 12:02 | P.PNNP ---
Subjective Interval history: This is a late entry, note for 01/29/18. patient seen, alert, no SOB, not in distress. Physical Exam Vital signs: Vital Signs 01/29/18 12:31 01/29/18 12:38 01/29/18 13:00 Temperature Pulse Rate 68 61 60 Respiratory Rate 39 H 31 H 31 H Blood Pressure 172/76 H 149/63 H 143/64 H Pulse Oximetry 96 97 97 01/29/18 16:00 01/29/18 20:00 01/29/18 23:28 Temperature 97.5 F L 97.9 F Pulse Rate 63 60 64 Respiratory Rate 16 16 16 Blood Pressure 175/73 H 180/76 H Pulse Oximetry 99 94 L 01/30/18 00:00 01/30/18 04:00 01/30/18 04:20 Temperature 98.1 F 98.7 F Pulse Rate 65 62 66 Respiratory Rate 16 16 Blood Pressure 150/72 H 180/85 H Pulse Oximetry 95 97 01/30/18 08:00 01/30/18 08:05 01/30/18 10:46 Temperature 97.7 F Pulse Rate 64 69 72 Respiratory Rate 16 18 18 Blood Pressure 169/72 H Pulse Oximetry 98 96 Intake & Output 01/29/18 01/30/18 01/30/18 18:59 06:59 18:59 Intake Total 760 / 760 Output Total 700 / 700 Balance 60 / 60 Weight 83.7 kg Intake: Oral 760 / 760 Output: Urine 700 / 700 Other: # Urine Diapers 6 # Bowel Movements 0 3 Narrative: awake sitting up vff fa e sym moves allext well inc lue speech clear - Urinary Catheter Management Indwelling Urethral Catheter Cath placed during this visit: yes, but has since been removed by the nurse Reason for continuing: Chronic Urinary Retention Insertion date: 01/16/18 Insertion time: 17:30 Removal date: 01/28/18 Removal time: 14:00 Assessment and Plan - Assessment (1) Acute kidney injury Code(s): N17.9 - Acute kidney failure, unspecified Status: Acute Plan: Patient with Acute kidney injury and Hyperkalemia, Most likely has ATN due to hypotension, now BP is better, K is low, on replacement. K-Lyte 50 mEq given Creatinine continue to improve, Na. is 158. BUN and creatinine improved and patient is nonoliguric Replace potassium Patient has underlying Pseudomonas infection on cefepime, repeat cultures are negative on free water via GT. Avoid Nephrotoxins. Improved mental status Neurology following. Also seen by Palliative care. Creatinine remain same at 1.6. Sodium improve to 148, encourage fluid intake. D/W the at bed side. (2) Sepsis Code(s): A41.9 - Sepsis, unspecified organism Status: Acute Plan: Blood cultures positive for Pseudomonas on cefepime (3) Acute UTI Code(s): N39.0 - Urinary tract infection, site not specified Status: Acute Plan: Has cefepime for Pseudomonas. (4) Respiratory failure Code(s): J96.90 - Respiratory failure, unspecified, unspecified whether with hypoxia or hypercapnia Status: Acute Plan: Patient is intubated on very mild sedation.
[2018-01-30] MEDS: levoFLOXacin 500 MG Tablet PO SCH (13:05)
--- NOTE | 2018-01-30 14:19 | P.PNPAL ---
Reason for Visit Reason for visit: a. To assist with evaluation and management of symptoms including: Encephalopathy, pain, dyspnea b. To assist medical decision maker(s) with: better understanding of current medical conditions; weighing benefits/burdens of medical treatment options; making medical treatment decisions. Subjective Subjective/Interval History: LATE entry seen @1245 Patient seen to follow up on comfort, goals w pt/decision maker. stable s/p medical extubation 01/28. Has been Tolerating NC 2L. Per ST on puree and nectar thick liquid. Reported tolerating PO. No new labs. Seen today in room , sleeping, arouses to touch/ verbal. Oriented to self, , hospital, aware he had a stroke. Speech is soft/quiet, and some delay in answering questions. answers with 1-2 words at a time. Tells me he is feeling "great" denies any complaints. Review w him ongoing ST, OT, PT to help his recovery. Lunch tray at bedside, ask if he is ready to be assisted to eat, he indicates hes not sure he's hungry. ENGINEERING DRAFTER arrives to assist, he agrees to eat. Moving all 4 extremities, left remains slightly weaker and slower to respond. He indicates his has not been in . pt improving slightly may be able to participate more in gaols/decision making, though limited at this time as he is quiet, speaking only a few words. has expressed aggressive goals during prior interactions. Advance Directives Living Will: Never completed Health Care Surrogate: Never completed Durable Power of Summer Sessions Director: Never completed Health Care Surrogate Name and Number: HCP: Lanie Cheung, : Objective Vital Signs: Vital Signs 01/29/18 16:00 01/29/18 20:00 01/29/18 23:28 Temperature 97.5 F L 97.9 F Pulse Rate 63 60 64 Respiratory Rate 16 16 16 Blood Pressure 175/73 H 180/76 H Pulse Oximetry 99 94 L 01/30/18 00:00 01/30/18 04:00 01/30/18 04:20 Temperature 98.1 F 98.7 F Pulse Rate 65 62 66 Respiratory Rate 16 16 Blood Pressure 150/72 H 180/85 H Pulse Oximetry 95 97 01/30/18 08:00 01/30/18 08:05 01/30/18 10:46 Temperature 97.7 F Pulse Rate 64 69 72 Respiratory Rate 16 18 18 Blood Pressure 169/72 H Pulse Oximetry 98 96 01/30/18 12:00 Temperature 98.4 F Pulse Rate 61 Respiratory Rate 16 Blood Pressure 158/77 H Pulse Oximetry 96 Intake & Output 01/29/18 01/30/18 01/30/18 18:59 06:59 18:59 Intake Total 760 / 760 Output Total 700 / 700 Balance 60 / 60 Weight 83.7 kg Intake: Oral 760 / 760 Output: Urine 700 / 700 Other: # Urine Diapers 6 # Bowel Movements 0 3 Physical Exam: CONSTITUTIONAL/GENERAL: This is an adequately nourished patient, alert, no distress TUBES/LINES/DRAINS: left pacemaker, PIVs, external catheter. NC SKIN: No jaundice, rashes, or lesions. No wounds seen anteriorly. Skin warm and dry. EYES: pupils equal and reactive. CARDIOVASCULAR: HR 60, no murmur. pedal pulses are faint. bilateral feet warm RESPIRATORY/CHEST: Symmetric, unlabored respirations on NC 2L. Faint crackles left side. Breath sounds equal bilaterally. GASTROINTESTINAL: Abdomen soft, nondistended. Bowel sounds present. GENITOURINARY: Without palpable bladder distension. external catheter in place. Clear yellow urine MUSCULOSKELETAL: Extremities without clubbing, cyanosis, or edema. No mottling or clubbing. NEUROLOGICAL: sleeping but speaks weakly/voice soft. Delay in answering questions. Oriented x2-3, difficulty answering all questions, expressive aphasia. answers with 1-2 words. moves all 4 extremities, follows commands, slight delayed movement left side, weaker left side PSYCHIATRIC: no obvious anxiety or depression. quiet. Diagnostic Tests Laboratory: Laboratory Results - last 72 hr 01/27/18 01/27/18 01/28/18 17:39 20:00 05:37 WBC RBC Hgb Hct MCV MCH MCHC RDW Plt Count MPV Prelim Diff (Auto) Neut % (Auto) Lymph % (Auto) Pierce % (Auto) Eos % (Auto) Baso % (Auto) Neut # (Auto) Lymph # (Auto) Pierce # (Auto) Eos # (Auto) Baso # (Auto) WBC Differential Diff Scan Differential Comment Sodium Potassium Chloride Carbon Dioxide Anion Gap BUN Creatinine Estimated GFR POC Glucose 112 H 128 H 103 Random Glucose Calcium Phosphorus Magnesium Total Bilirubin AST ALT Alkaline Phosphatase Ammonia Total Protein Albumin 01/28/18 01/28/1818 06:03 06:03 06:03 WBC 9.2 RBC 3.55 L Hgb 10.5 L Hct 31.0 L MCV 87.4 MCH 29.6 MCHC 33.9 RDW 15.0 Plt Count 237 MPV 10.0 Prelim Diff (Auto) Neut % (Auto) 78.1 H Lymph % (Auto) 10.1 Pierce % (Auto) 7.3 Eos % (Auto) 3.9 Baso % (Auto) 0.6 Neut # (Auto) 7.2 Lymph # (Auto) 0.9 L Pierce # (Auto) 0.7 Eos # (Auto) 0.4 Baso # (Auto) 0.1 WBC Differential . Diff Scan Differential Comment Auto diff final Sodium 153 H Potassium 4.0 D Chloride 121 H Carbon Dioxide 25.2 Anion Gap 7 BUN 83 H Creatinine 1.69 H Estimated GFR 39 L POC Glucose Random Glucose 94 Calcium 8.6 D Phosphorus 3.7 Magnesium 2.9 H Total Bilirubin 1.0 AST 45 H ALT 88 H Alkaline Phosphatase 102 Ammonia 25 Total Protein 7.2 Albumin 3.1 L 01/28/18 01/28/18 01/28/18 12:15 17:48 21:18 WBC RBC Hgb Hct MCV MCH MCHC RDW Plt Count MPV Prelim Diff (Auto) Neut % (Auto) Lymph % (Auto) Pierce % (Auto) Eos % (Auto) Baso % (Auto) Neut # (Auto) Lymph # (Auto) Pierce # (Auto) Eos # (Auto) Baso # (Auto) WBC Differential Diff Scan Differential Comment Sodium Potassium Chloride Carbon Dioxide Anion Gap BUN Creatinine Estimated GFR POC Glucose 98 97 117 H Random Glucose Calcium Phosphorus Magnesium Total Bilirubin AST ALT Alkaline Phosphatase Ammonia Total Protein Albumin 01/29/18 01/29/18 01/29/18 03:45 03:45 12:16 WBC 11.9 H RBC 3.52 L Hgb 10.2 L Hct 30.7 L MCV 87.2 MCH 29.1 MCHC 33.3 RDW 14.8 Plt Count 254 MPV 10.2 Prelim Diff (Auto) Slide review pending Neut % (Auto) 77.7 H Lymph % (Auto) 10.2 Pierce % (Auto) 7.3 Eos % (Auto) 4.3 H Baso % (Auto) 0.5 Neut # (Auto) 9.2 H Lymph # (Auto) 1.2 Pierce # (Auto) 0.9 Eos # (Auto) 0.5 H Baso # (Auto) 0.1 WBC Differential . Diff Scan Auto diff confirmed Differential Comment . Sodium 148 H Potassium 4.1 Chloride 117 H Carbon Dioxide 20.8 L Anion Gap 10 BUN 65 H Creatinine 1.64 H Estimated GFR 40 L POC Glucose 113 H Random Glucose 105 Calcium 8.3 L Phosphorus 2.9 Magnesium 2.5 Total Bilirubin AST ALT Alkaline Phosphatase Ammonia Total Protein Albumin 01/29/18 01/29/18 01/30/18 17:56 19:18 07:20 WBC RBC Hgb Hct MCV MCH MCHC RDW Plt Count MPV Prelim Diff (Auto) Neut % (Auto) Lymph % (Auto) Pierce % (Auto) Eos % (Auto) Baso % (Auto) Neut # (Auto) Lymph # (Auto) Pierce # (Auto) Eos # (Auto) Baso # (Auto) WBC Differential Diff Scan Differential Comment Sodium Potassium Chloride Carbon Dioxide Anion Gap BUN Creatinine Estimated GFR POC Glucose 111 H 97 96 Random Glucose Calcium Phosphorus Magnesium Total Bilirubin AST ALT Alkaline Phosphatase Ammonia Total Protein Albumin Result Diagrams: 01/29/18 03:45 01/29/18 03:45 Procedures: 01/16 central line right IJ 01/16 intubated Assessment and Plan - Disease Oriented Problem List (1) Bladder tumor (2) Meatal stenosis (3) History of bladder cancer (4) Acute UTI (5) Acute kidney injury (6) Sepsis (7) Respiratory failure Pertinent Non-Medical Issues: Psychosocial: Born and raised in [place]. 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 Supported by , children, grandchildren as well as close friends. 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 Per [place] statutes his would be appropriate legal proxy. Palliative care will attempt to assist with completion of written advanced directives in coming days now that patient is off vent and encephalopathy is improving. Ethical issues impacting care: No ethical issues identified. Important Contacts: Lanie Cheung [phone], cell [phone] Prognosis: This patient was initially admitted with generalized symptoms of nausea, weakness but overall not feeling well. During hospital course has had worsening sepsis, multiorgan failure. He has recent diagnoses of bladder cancer. Given advanced age, Multiorgan issues, high risk for ongoing complications and setbacks. Code Status: Full Code Plan: Patient was extubated 01/28/18, will follow to determine patient's ability to make his own medical decisions in the coming days. Per [place] statutes his would be appropriate legal proxy. Palliative care will attempt to assist with completion of written advanced directives and clarification of goals of medical treatment with patient in coming days now that patient is off vent and encephalopathy is improving. Goals: Goals remain aggressive. wants REINTUBATION and continue all available treatments at this time. She remains hopeful he may recover enough to return home after rehab course. pt improving slightly may be able to participate more in gaols/decision making, though limited at this time as he is quiet, speaking only a few words. has expressed aggressive goals during prior interactions. CODE STATUS:full code SYMPTOMS: --Dyspnea Extubated 01/28/18. s/p CVA,now on NC 2L. risk for aspiration, modified diet. --Dysphagia- potential r/t CVA ; 01/[address] evaluation recommended mech soft diet and nectar thick liquids. --Encephalopathy-multifactorial, metabolic. prev. with Multiorgan failure. High risk for future CVA. Improving, hopefully patient will continue to improve to be able to participate in goals of medical treatment. --Pain-currently with no signs or symptoms of pain, potential sources would include bedbound status, recent invasive procedures, including cystoscopy. indicates he has not had any c/o pain. He denies pain for my assessment. No indications for pain medication at this time. We will continue to evaluate. Palliative care will continue to follow during hospital course as condition evolves, to assist patient/decision-maker with understanding of medical conditions, weighing benefits/burdens of treatment options, for clarification of goals of treatment. Additionally will assist with any symptoms of palliative concern Attestation Attestation: To help prompt me to consider important information that might be impacting today's encounter and assessment, information from prior notes written by myself or my colleagues may have been "brought forward" into today's note. My signature on this note, however, is an attestation that I personally performed the exam, history, and/or decision-making noted today, and, unless otherwise indicated, the interactions with patient, family, and staff as well as the review of records all occurred today. I also attest that the listed assessment and stated plan reflect my best clinical judgment today based on the combination of historical information, prior notes, and today's exam/ interactions. When time spent is documented, it refers only to time spent today by the signer, or if indicated, combined time spent today by collaborating physician/nurse practitioner.
--- NOTE | 2018-01-30 20:46 | P.PNNP ---
Subjective Interval history: Patient seen in the afternoon, clinically same, more sleepy today. Physical Exam Vital signs: Vital Signs 01/29/18 23:28 01/30/18 00:00 01/30/18 04:00 Temperature 98.1 F 98.7 F Pulse Rate 64 65 62 Respiratory Rate 16 16 16 Blood Pressure 150/72 H 180/85 H Pulse Oximetry 95 97 01/30/18 04:20 01/30/18 08:00 01/30/18 08:05 Temperature 97.7 F Pulse Rate 66 64 69 Respiratory Rate 16 18 Blood Pressure 169/72 H Pulse Oximetry 98 96 01/30/18 10:46 01/30/18 12:00 01/30/18 16:00 Temperature 98.4 F 98.9 F Pulse Rate 72 62 67 Respiratory Rate 18 16 16 Blood Pressure 158/77 H 139/62 Pulse Oximetry 96 95 01/30/18 17:08 01/30/18 20:04 Temperature Pulse Rate 70 78 Respiratory Rate 18 20 Blood Pressure Pulse Oximetry 94 L 94 L Intake & Output 01/30/18 01/30/18 01/31/18 06:59 18:59 06:59 Intake Total 500 / 500 Output Total 400 / 400 Balance -400 / -400 500 / 500 Weight 83.7 kg Intake: Oral 500 / 500 Output: Urine 400 / 400 Other: # Urine Diapers 6 3 # Bowel Movements 3 Narrative: Patient is awake, not in distress. HEENT: PABLO, nonicteric, conjunctiva pale. Neck: Supple, JVD not elevated. Lungs: Bilateral basal rales and few rhonchi. Abd. Soft, BS positive, non tender. ext: 1 plus leg edema. - Urinary Catheter Management Indwelling Urethral Catheter Cath placed during this visit: yes, but has since been removed by the nurse Reason for continuing: Chronic Urinary Retention Insertion date: 01/16/18 Insertion time: 17:30 Removal date: 01/28/18 Removal time: 14:00 Assessment and Plan - Assessment (1) Acute kidney injury Code(s): N17.9 - Acute kidney failure, unspecified Status: Acute Plan: Patient with Acute kidney injury and Hyperkalemia, Most likely has ATN due to hypotension, now BP is better, K is low, on replacement. K-Lyte 50 mEq given Creatinine continue to improve, Na. is 158. BUN and creatinine improved and patient is nonoliguric Replace potassium Patient has underlying Pseudomonas infection on cefepime, repeat cultures are negative on free water via GT. Avoid Nephrotoxins. Improved mental status Neurology following. Also seen by Palliative care. Creatinine was same at 1.6. No new BMP today, follow the BMP. (2) Sepsis Code(s): A41.9 - Sepsis, unspecified organism Status: Acute Plan: Blood cultures positive for Pseudomonas on cefepime (3) Acute UTI Code(s): N39.0 - Urinary tract infection, site not specified Status: Acute Plan: Has cefepime for Pseudomonas. (4) Respiratory failure Code(s): J96.90 - Respiratory failure, unspecified, unspecified whether with hypoxia or hypercapnia Status: Acute Plan: Patient is intubated on very mild sedation.
[2018-01-30] MEDS: Temazepam 15 MG Capsule PO SCH (21:21)
[2018-01-31] MEDS: Oral Hygiene Kit OROPHARYNG SCH ×3 (04:05→16:27)
[2018-01-31] MEDS: Artificial Tears Opth Drops 15 ML Bottle EACH EYE SCH ×3 (06:04→22:00)
[2018-01-31] MEDS: Insulin NovoLOG Aspart Correctional Sugar Inj SQ SCH ×4 (08:36→21:59)
[2018-01-31] MEDS: Chlorhexidine 0.12% Oral Kit 15 ML UDC OROPHARYNG SCH ×2 (08:38→21:59)
[2018-01-31] MEDS: Carvedilol 12.5 MG Tablet PO SCH ×2 (08:42→21:59)
[2018-01-31] MEDS: Polyethylene Glycol 3350 17 GM Packet PO SCH (08:43)
[2018-01-31] MEDS: Senna/Docusate Sodium 8.6/50 MG Tablet PO SCH ×2 (08:45→21:59)
[2018-01-31 09:43] LABS: Hemoglobin 10.7 gm/dL (13.0-17.0); Mean Corpuscular HGB Conc 33.4 % (32.0-36.0); Mean Corpuscular Hemoglobin 29.5 pg (27.0-34.0); Mean Corpuscular Volume 88.2 fL (80.0-100.0); Mean Platelet Volume 9.5 fL (7.0-11.0); Platelet Count 288 th/mm3 (150-450); Red Blood Count 3.63 mil/mm3 (4.50-5.90); Red Cell Distribution Width 15.1 % (11.6-17.2); White Blood Count 10.4 th/mm3 (4.0-11.0)
[2018-01-31 09:57] LABS: Calcium 8.4 mg/dL (8.5-10.1); Carbon Dioxide 24.3 meq/L (21.0-32.0); Potassium 4.4 meq/L (3.5-5.1)
[2018-01-31 10:07] LABS: Eosinophils 5 % (0-4); Lymphocytes 19 % (9-44); Monocytes 10 % (0-8)
[2018-01-31 10:08] LABS: Platelet Estimate Normal (Normal); Platelet Morphology Normal (Normal); RBC Morphology Normal (Normal)
--- NOTE | 2018-01-31 11:17 | P.PNNEU ---
Subjective Active Medications: Active Medications Acetaminophen (Tylenol) 650 mg PO Q6H PRN PRN Reason: Temp > 100.4 Albuterol (Albuterol Neb (Prn)) 2.5 mg NEB Q2HR NEB PRN PRN Reason: DYSPNEA Last Admin: 01/29/18 11:27 Dose: 2.5 mg Albuterol (Duoneb Neb (Nisha)) 1 ampul NEB Q4HR NEB [facility] Last Admin: 01/31/18 08:19 Dose: 1 ampul Artificial Tears (Tears Naturale Opth Drops) 1 drop EACH EYE Q8H [facility] Last Admin: 01/31/18 06:04 Dose: Not Given Aspirin (Aspirin Chew) 81 mg PO DAILY [facility] Last Admin: 01/31/18 08:41 Dose: 81 mg Atorvastatin Calcium (Lipitor) 10 mg PO DAILY [facility] Last Admin: 01/31/18 08:42 Dose: 10 mg Bisacodyl (Dulcolax Supp) 10 mg RECTAL DAILY PRN PRN Reason: SEVERE CONSITIPATION Carvedilol (Coreg) 12.5 mg PO BID [facility] Last Admin: 01/31/18 08:42 Dose: 12.5 mg Chlorhexidine Gluconate (Peridex 0.12% Oral Kit) 15 ml OROPHARYNG BID@0800, 2000 [facility] Last Admin: 01/31/18 08:38 Dose: Not Given Dextrose (D50w Vial) 50 ml IV.PUSH UNSCH PRN PRN Reason: PER HYPOGLYCEMIA PROTOCOL Escitalopram Oxalate (Lexapro) 10 mg PO DAILY [facility] Last Admin: 01/16/18 09:18 Dose: 10 mg Gabapentin (Neurontin) 300 mg PO BID [facility] Last Admin: 01/16/18 09:19 Dose: 300 mg Glucagon (Glucagon Inj) 1 mg OTHER PRN PRN PRN Reason: for Hypoglycemia Protocol Hydralazine HCl (Apresoline Inj) 10 mg IV.PUSH Q1H PRN PRN Reason: SEE LABEL COMMENTS Last Admin: 01/29/18 03:54 Dose: 10 mg Insulin Aspart (Novolog Insulin Correctional Sugar Inj) 0 unit SQ [facility]; Protocol Last Admin: 01/31/18 08:36 Dose: Not Given Labetalol HCl (Trandate Inj) 10 mg IV.PUSH Q4H PRN PRN Reason: SEE LABEL COMMENTS Last Admin: 01/29/18 01:49 Dose: 10 mg Lactulose (Lactulose Liq) 30 ml PO DAILY PRN PRN Reason: SEVERE CONSITIPATION Lactulose (Lactulose Liq) 30 ml PO BID [facility] Last Admin: 01/31/18 08:56 Dose: 30 ml Lansoprazole (Prevacid Solutab) 30 mg NG/OG DAILY [facility] Last Admin: 01/31/18 08:46 Dose: 30 mg Levofloxacin (Levaquin) 500 mg PO Q48H [facility] Last Admin: 01/30/18 13:05 Dose: 500 mg Miscellaneous Medication () 1 each OROPHARYNG 0000,0400,1200,1600 [facility] Last Admin: 01/31/18 04:05 Dose: Not Given Nifedipine (Procardia Xl) 30 mg PO BID [facility] Last Admin: 01/31/18 08:47 Dose: 30 mg Ondansetron HCl (Zofran Inj) 4 mg IV.PUSH Q6H PRN PRN Reason: NAUSEA OR VOMITING Polyethylene Glycol (Miralax) 17 gm PO BID [facility] Last Admin: 01/31/18 08:43 Dose: 17 gm Senna/Docusate Sodium (Bel-Colace) 1 tab PO BID [facility] Last Admin: 01/31/18 08:45 Dose: 1 tab Sennosides (Senokot) 17.2 mg PO Q12H PRN PRN Reason: Moderate Constipation Sodium Chloride (Ns Flush) 2 ml IV.FLUSH BID [facility] Last Admin: 01/31/18 08:56 Dose: 2 ml Sodium Chloride (Ns Flush) 2 ml IV.FLUSH PRN PRN PRN Reason: FLUSH AFTER USING IV ACCESS Last Admin: 01/31/18 08:44 Dose: 2 ml Tamsulosin HCl (Flomax) 0.4 mg PO [facility] Last Admin: 01/30/18 21:21 Dose: 0.4 mg Temazepam (Restoril) 15 mg PO [facility] Last Admin: 01/30/18 21:21 Dose: 15 mg Allergies/Adverse Reactions: Allergies Allergy/AdvReac Type Severity Reaction Status Date / Time No Known Allergies Allergy Verified 01/02/18 12:33 Physical Exam Vital signs: Vital Signs 01/30/18 12:00 01/30/18 16:00 01/30/18 17:08 Temperature 98.4 F 98.9 F Pulse Rate 62 67 70 Respiratory Rate 16 16 18 Blood Pressure 158/77 H 139/62 Pulse Oximetry 96 95 94 L 01/30/18 20:00 01/30/18 20:04 01/30/18 23:57 Temperature 97.8 F Pulse Rate 67 78 67 Respiratory Rate 15 20 14 Blood Pressure 137/63 Pulse Oximetry 98 94 L 97 01/31/18 00:00 01/31/18 03:39 01/31/18 04:00 Temperature 98 F 97.7 F Pulse Rate 64 77 70 Respiratory Rate 17 18 19 Blood Pressure 138/61 168/73 H Pulse Oximetry 98 100 01/31/18 04:05 01/31/18 08:00 01/31/18 08:19 Temperature 98.0 F Pulse Rate 68 76 70 Respiratory Rate 18 16 Blood Pressure 145/70 H Pulse Oximetry 97 97 Intake & Output 01/30/18 01/31/18 01/31/18 18:59 06:59 18:59 Intake Total 500 / 500 Output Total 400 / 400 Balance -400 / -400 500 / 500 Weight 83.5 kg Intake: Oral 500 / 500 Output: Urine 400 / 400 Other: # Urine Diapers 3 Narrative: awake vff face sym speech ok not yr knows [facility] 5/5 t/o - Urinary Catheter Management Indwelling Urethral Catheter Cath placed during this visit: yes, but has since been removed by the nurse Reason for continuing: Chronic Urinary Retention Insertion date: 01/16/18 Insertion time: 17:30 Removal date: 01/28/18 Removal time: 14:00 Objective Laboratory Results - last 24 hr 01/30/18 01/30/18 01/31/18 16:09 20:01 07:45 WBC RBC Hgb Hct MCV MCH MCHC RDW Plt Count MPV Prelim Diff (Auto) WBC Differential Seg Neuts % (Manual) Lymphocytes % (Manual) Monocytes % (Manual) Eosinophils % (Manual) Abs Neuts (Manual) Differential Comment Platelet Estimate Platelet Morphology RBC Morphology Sodium 151 H Potassium 4.4 Chloride 118 H Carbon Dioxide 24.3 Anion Gap 9 BUN 37 H Creatinine 1.57 H Estimated GFR 42 L POC Glucose 107 107 Random Glucose 100 Calcium 8.4 L 01/31/18 01/31/18 08:14 08:15 WBC 10.4 RBC 3.63 L Hgb 10.7 L Hct 32.0 L MCV 88.2 MCH 29.5 MCHC 33.4 RDW 15.1 Plt Count 288 MPV 9.5 Prelim Diff (Auto) Manual diff required WBC Differential Manual diff final Seg Neuts % (Manual) 66 Lymphocytes % (Manual) 19 Monocytes % (Manual) 10 H Eosinophils % (Manual) 5 H Abs Neuts (Manual) 6.9 Differential Comment . Platelet Estimate Normal Platelet Morphology Normal RBC Morphology Normal Sodium Potassium Chloride Carbon Dioxide Anion Gap BUN Creatinine Estimated GFR POC Glucose 104 Random Glucose Calcium Review/Management - Review/Management Plan: imp labs ok looks better fu echo and ct pacemaker sepsis likley left occipital cva some hemorrhagic component vs abcess less likley 01/23/18 he was more interactive yesterday bun 107 creat a bit better continue to hold sedatives echo and eeg neg check us carotid repeat ct no change this is likely hemorrhagic infarct afib a large abcess could be considered and i will have nusu weigh in my hope is he will awaken off sedatives as he metabolic condition improves i will be out of town call dr davis over weekend if ? o/w i will fu friday ------- 01/26/18 us left some mod dz check ldl estela note seen prob hemorrhagic infarct recheck ct 10 days as dw med team i would have nusu weigh in on if they think he could be anticoagulated or not ie bleeding risk asa 81 for now much better may be aphasic hard to say 01/28/18 ldl nl looks well and nonfocal now i would ask estela if they think we can start anticoag 01/31/18 looks well neurowisse and await estela to weigh in on anticoag timing afib cva vs abcess recheck ct
--- NOTE | 2018-01-31 11:19 | P.PNIM ---
Subjective Interval history: no new complaints asking for water. Physical Exam Vital signs: Last Vital Signs Temp 98.0 F 01/31/18 08:00 Pulse 70 01/31/18 08:19 Resp 16 01/31/18 08:19 BP 145/70 H 01/31/18 08:00 Pulse Ox 97 01/31/18 08:19 Narrative: heart reg lung course bs abd s/nt ext no edema not completely oriented. Results Labs CBC & Chem 7: 01/31/18 08:14 01/31/18 07:45 Assessment and Plan Plan - Pt is an 82 y/o male with bladder cancer who recently underwent meatal dilation/bilateral retrograde pyelograms/bladder biopsy with fulguration/ bilateral ureteroscopy with laser ablation of distal ureteral masses/right ureteroscopic stone extraction and bilateral ureteral stent placement with Dr. Feliciano on 01/05/18. . She states that the pt has not been eating or drinking well over the last few weeks and has been somewhat weaker than normal. Then yesterday after the Talbot was removed the pt had difficulty urinating and last night started becoming more nauseated and started vomiting during the night last night. Pts reports that he had similar issues in August 2017 after a previous urological procedure after Talbot removal but was not this bad and was treated for a UTI at that time. 1. 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 01/23 large 6.1 x 3.9 cm left occipital abnormality, probable hemorrhagic infarct Followed by Dr. Kemp/neurology -Neurosurgery consulted for possible hemorrhagic infarct left parieto- occipital. Recommend repeat CT brain in 2 weeks with contrast if able cannot rule out mass lesion or abscess into continue conservative management. Dr. Doshi returns 01/31 - re -recommendation regarding antiplatelet or anticoagulation -Altered mental status/encephalopathy secondary to metabolic encephalopathy and severe sepsis and acute stroke -Has mild midline shift keep sodium 145-150. Currently 153 Continue baby aspirin 81 mg daily per neurology adjusted bp control and improved daily PT. will need snf. give some genterl d5w for hypernatremia and recheck in AM Bronchiectasis/Restrictive lung disease/COPD, chronically on 2L of supplemental O2 Obstructive sleep apnea on CPAP at night Acute hypoxemic respiratory failure Extubated 01/27. Currently on room air. -Albuterol/ipratropium aerosols every 4 hours with albuterol aerosols every 2 hours as needed -Incentive spirometry while awake CHF/systolic Hyperlipidemia HTN Atrial fibrillation currently rate control AAA/Thoracic aortic aneurysm -Developed A. fib with RVR 01/17/2018. Diltiazem 30 mg 4 times daily initiated.. This is discontinued 01/27 carvedilol 12.5 twice daily. resumed amlodipine at 5 mg daily -Currently rate controlled but remains in A. fib, off IV heparin due to hemorrhagic infarct -Diuresis per nephrology. -2D echo 07/24/17: Estimated EF 45-50%, abnormal LV diastolic function, mild to moderate AR -Currently on atorvastatin 10 mg daily for hyperlipidemia History meatal stenosis BPH Status post recent bilateral ureteroscopy suspicious for recurrent urothelial cancer involving both ureteral orifices. Status post recent right ureteroscopy with laser lithotripsy of distal ureteral calculus Status post bilateral ureteral stent placement Acute kidney injury likely secondary to hypoperfusion/hypotension Noninvasive low-grade papillary urethrothelial carcinoma -Monitor renal function closely. Talbot catheter. Patient's previous indwelling catheter was removed by Dr. Feliciano 01/16/18 -Urology Dr. Feliciano is following -Nephrology Dr. Duarte following for for worsening oliguric renal failure creatinine Monitor for need for hemodialysis -CT of abdomen pelvis on admission showed bilateral ureteral stents are in place and there is mild distention of the collecting systems bilaterally. Continue tamsulosin 0.4 mg daily Pseudomonas bacteremia/urosepsis -Antibiotics continue levofloxacin. Discontinued cefepime 01/26 -ID consulted-Dr. Foster following - LINES: Utilize peripheral IV. Central line if indicated -Right IJ central line placed 01/16/2018. Respiratory therapist placed art line 01/16/18-central line and arterial line discontinued 01/20 Progress Note: Quality VTE Deep Vein Thrombosis/Pulmonary Embolism Present on Admission: No
[2018-01-31] MEDS: Dextrose 5% in Water Inj 1,000 ML IV.CONT SCH (12:15)
--- NOTE | 2018-01-31 12:50 | P.PNNP ---
Subjective Interval history: Sitting in chair. Reports generalized weakness, pruritus, and some shortness of breath. Creatinine improving at 1.57 today. <Kaylen Marie - Last Filed: 01/31/18 12:42> Physical Exam Vital signs: Vital Signs 01/30/18 16:00 01/30/18 17:08 01/30/18 20:00 Temperature 98.9 F 97.8 F Pulse Rate 67 70 67 Respiratory Rate 16 18 15 Blood Pressure 139/62 137/63 Pulse Oximetry 95 94 L 98 01/30/18 20:04 01/30/18 23:57 01/31/18 00:00 Temperature 98 F Pulse Rate 78 67 64 Respiratory Rate 20 14 17 Blood Pressure 138/61 Pulse Oximetry 94 L 97 98 01/31/18 03:39 01/31/18 04:00 01/31/18 04:05 Temperature 97.7 F Pulse Rate 77 70 68 Respiratory Rate 18 19 Blood Pressure 168/73 H Pulse Oximetry 100 01/31/18 08:00 01/31/18 08:19 01/31/18 11:31 Temperature 98.0 F Pulse Rate 76 70 72 Respiratory Rate 18 16 16 Blood Pressure 145/70 H Pulse Oximetry 97 97 Intake & Output 01/30/18 01/31/18 01/31/18 18:59 06:59 18:59 Intake Total 500 / 500 Output Total 400 / 400 Balance -400 / -400 500 / 500 Weight 83.5 kg Intake: Oral 500 / 500 Output: Urine 400 / 400 Other: # Urine Diapers 3 Narrative: GENERAL: Alert and oriented X 2 SKIN: Warm and dry. NECK: Supple, trachea midline. No JVD CARDIOVASCULAR: Regular rate and rhythm without murmurs, gallops, or rubs. RESPIRATORY: Breath sounds equal bilaterally. No accessory muscle use. Crackles in bases GASTROINTESTINAL: Abdomen soft, non-tender, Positive BS GENITOURINARY: Indwelling Prince catheter. MUSCULOSKELETAL: No cyanosis, or edema. BACK: Nontender without obvious deformity. No CVA tenderness. - Urinary Catheter Management Indwelling Urethral Catheter Cath placed during this visit: yes, but has since been removed by the nurse Reason for continuing: Chronic Urinary Retention Insertion date: 01/16/18 Insertion time: 17:30 Removal date: 01/28/18 Removal time: 14:00 <Kaylen Marie - Last Filed: 01/31/18 12:42> Vital signs: Vital Signs 01/30/18 23:57 01/31/18 00:00 01/31/18 03:39 Temperature 98 F Pulse Rate 67 64 77 Respiratory Rate 14 17 18 Blood Pressure 138/61 Pulse Oximetry 97 98 01/31/18 04:00 01/31/18 04:05 01/31/18 08:00 Temperature 97.7 F 98.0 F Pulse Rate 70 68 76 Respiratory Rate 19 18 Blood Pressure 168/73 H 145/70 H Pulse Oximetry 100 97 01/31/18 08:19 01/31/18 11:31 01/31/18 12:00 Temperature 97.4 F L Pulse Rate 70 72 72 Respiratory Rate 16 16 18 Blood Pressure 129/68 Pulse Oximetry 97 99 01/31/18 16:00 Temperature 98.9 F Pulse Rate 53 L Respiratory Rate 18 Blood Pressure 100/75 Pulse Oximetry 93 L Intake & Output 01/31/18 01/31/18 02/01/18 06:59 18:59 06:59 Intake Total 500 / 500 360 / 360 Output Total 400 / 400 Balance 500 / 500 -40 / -40 Weight 83.5 kg Intake: Oral 500 / 500 360 / 360 Output: Urine 400 / 400 Other: # Voids 3 # Urine Diapers 3 - Urinary Catheter Management Indwelling Urethral Catheter Cath placed during this visit: no <Ender Duarte - Last Filed: 01/31/18 21:08> Assessment and Plan - Assessment (1) Acute kidney injury Code(s): N17.9 - Acute kidney failure, unspecified Status: Acute Plan: Patient with Acute kidney injury and Hyperkalemia. Most likely has ATN due to hypotension. Creatinine continue to improve at 1.57 today, non oliguric Indwelling Prince catheter. Avoid Nephrotoxins. Will continue to follow electrolytes and fluid status (2) Sepsis Code(s): A41.9 - Sepsis, unspecified organism Status: Acute Plan: Blood cultures positive for Pseudomonas on Levaquin (3) Acute UTI Code(s): N39.0 - Urinary tract infection, site not specified Status: Acute Plan: On levaquin for Pseudomonas. (4) Hypernatremia Code(s): E87.0 - Hyperosmolality and hypernatremia Status: Acute Plan: sodium level has increased at 151, D5 W has been started. <Kaylen Marie - Last Filed: 01/31/18 12:42> - Assessment (1) Acute kidney injury Code(s): N17.9 - Acute kidney failure, unspecified Status: Acute Plan: Patient seen and examined, agree with above. Creatinine improving at 1.57, non oliguric. Avoid Nephrotoxins. (2) Sepsis Code(s): A41.9 - Sepsis, unspecified organism Status: Acute (3) Acute UTI Code(s): N39.0 - Urinary tract infection, site not specified Status: Acute (4) Hypernatremia Code(s): E87.0 - Hyperosmolality and hypernatremia Status: Acute <Ender Duarte - Last Filed: 01/31/18 21:08>
--- NOTE | 2018-01-31 16:15 | CT ---
EXAM DATE: 01/31/2018 4:11 PM EST AGE/SEX: 82 years / Male INDICATIONS: Embolus, head pain. CLINICAL DATA: This is the patient's initial encounter. Patient reports that signs and symptoms have been present for 1 day and indicates a pain score of Nonresponsive. MEDICAL/SURGICAL HISTORY: Renal calculi. Chronic obstructive pulmonary disease. Bladder cancer Fu jayce, cervical. RADIATION DOSE: 45.25 CTDI (mGy) COMPARISON: [facility] – [place], [place] HEAD W/O CONTRAST, 01/22/2018. . TECHNIQUE: CT of the head without contrast. Using automated exposure control and adjustment of the mA and/or kV according to patient size, radiation dose was kept as low as reasonably achievable to ob tain optimal diagnostic quality images. DICOM format image data is available electronically for revi ew and comparison. FINDINGS: Again noted is an area of diminished attenuation left occipital lobe with serpiginous areas of increa sed density within it has the appearance of subarachnoid hemorrhage. The subarachnoid hemorrhage comp onent was not present on the prior exam. This is most likely an area of evolving infarction. There is no mass effect. The rest of the examination has not changed. CONCLUSION: 1. Interval development of what appears to be subarachnoid hemorrhage within left occipital lobe inf arction without any significant mass effect. Electronically signed by: Naty Cuellar MD Board Certified Radiologist 01/31/2018 4:14 PM EST
[2018-01-31] MEDS: Temazepam 15 MG Capsule PO SCH (21:59)
[2018-02-01] MEDS: Oral Hygiene Kit OROPHARYNG SCH ×3 (04:16→15:08)
[2018-02-01 06:43] LABS: Calcium 7.6 mg/dL (8.5-10.1); Carbon Dioxide 24.3 meq/L (21.0-32.0); Potassium 4.2 meq/L (3.5-5.1)
[2018-02-01] MEDS: Artificial Tears Opth Drops 15 ML Bottle EACH EYE SCH ×2 (06:49→15:10)
[2018-02-01] MEDS: Insulin NovoLOG Aspart Correctional Sugar Inj SQ SCH ×4 (08:24→21:25)
[2018-02-01] MEDS: Chlorhexidine 0.12% Oral Kit 15 ML UDC OROPHARYNG SCH ×2 (08:24→21:25)
[2018-02-01] MEDS: Senna/Docusate Sodium 8.6/50 MG Tablet PO SCH ×2 (08:46→21:24)
[2018-02-01] MEDS: Carvedilol 12.5 MG Tablet PO SCH ×2 (08:46→21:24)
--- NOTE | 2018-02-01 09:59 | P.PNIM ---
Subjective Interval history: pt lying comfortable. partially oriented. Physical Exam Vital signs: Last Vital Signs Temp 98.1 F 02/01/18 08:00 Pulse 73 02/01/18 08:00 Resp 20 02/01/18 08:00 BP 151/71 H 02/01/18 08:00 Pulse Ox 98 02/01/18 08:00 Narrative: heart reg lung course bs abd s/nt ext no edema not completely oriented. new place and president missed the year. Results Labs CBC & Chem 7: 01/31/18 08:14 02/01/18 05:13 Assessment and Plan Assessment (1) Acute kidney injury: Code(s): N17.9 - Acute kidney failure, unspecified Status: Acute (2) Sepsis: Code(s): A41.9 - Sepsis, unspecified organism Status: Acute (3) Acute UTI: Code(s): N39.0 - Urinary tract infection, site not specified Status: Acute (4) Hypernatremia: Code(s): E87.0 - Hyperosmolality and hypernatremia Status: Acute Plan - Pt is an 82 y/o male with bladder cancer who recently underwent meatal dilation/bilateral retrograde pyelograms/bladder biopsy with fulguration/ bilateral ureteroscopy with laser ablation of distal ureteral masses/right ureteroscopic stone extraction and bilateral ureteral stent placement with Dr. Feliciano on 01/05/18. . She states that the pt has not been eating or drinking well over the last few weeks and has been somewhat weaker than normal. Then yesterday after the Talbot was removed the pt had difficulty urinating and last night started becoming more nauseated and started vomiting during the night last night. Pts reports that he had similar issues in August 2017 after a previous urological procedure after Talbot removal but was not this bad and was treated for a UTI at that time. 1. 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 01/23 large 6.1 x 3.9 cm left occipital abnormality, probable hemorrhagic infarct Followed by Dr. Kemp/neurology -Neurosurgery consulted for possible hemorrhagic infarct left parieto- occipital. Recommended repeat CT brain in 2 weeks with contrast if able cannot rule out mass lesion or abscess into continue conservative management. Dr. Doshi returns 01/31 - re -recommendation regarding antiplatelet or anticoagulation -Altered mental status/encephalopathy secondary to metabolic encephalopathy and severe sepsis and acute stroke -neurology repeated the CT 01/31. left occipital cva with sah within noted. Continue baby aspirin 81 mg daily per neurology. awaiting any future anticoagulation recc per nsg adjusted bp control and improved daily PT. will need snf and plan to dc in next 2-3 days. give some d5w for hypernatremia...improved Bronchiectasis/Restrictive lung disease/COPD, chronically on 2L of supplemental O2 Obstructive sleep apnea on CPAP at night Acute hypoxemic respiratory failure Extubated 01/27. Currently on room air. -Albuterol/ipratropium aerosols every 4 hours with albuterol aerosols every 2 hours as needed -Incentive spirometry while awake CHF/systolic Hyperlipidemia HTN Atrial fibrillation currently rate control AAA/Thoracic aortic aneurysm -Developed A. fib with RVR 01/17/2018. Diltiazem 30 mg 4 times daily initiated.. This is discontinued 01/27 carvedilol 12.5 twice daily. resumed amlodipine at 5 mg daily -Currently rate controlled but remains in A. fib, off IV heparin due to hemorrhagic infarct -Diuresis per nephrology. -2D echo 07/24/17: Estimated EF 45-50%, abnormal LV diastolic function, mild to moderate AR -Currently on atorvastatin 10 mg daily for hyperlipidemia History meatal stenosis BPH Status post recent bilateral ureteroscopy suspicious for recurrent urothelial cancer involving both ureteral orifices. Status post recent right ureteroscopy with laser lithotripsy of distal ureteral calculus Status post bilateral ureteral stent placement Acute kidney injury likely secondary to hypoperfusion/hypotension Noninvasive low-grade papillary urethrothelial carcinoma -Monitor renal function closely. Talbot catheter. Patient's previous indwelling catheter was removed by Dr. Feliciano 01/16/18 -Urology Dr. Feliciano is following -Nephrology Dr. Duarte following for for worsening oliguric renal failure creatinine Monitor for need for hemodialysis -CT of abdomen pelvis on admission showed bilateral ureteral stents are in place and there is mild distention of the collecting systems bilaterally. Continue tamsulosin 0.4 mg daily Pseudomonas bacteremia/urosepsis -Antibiotics continue levofloxacin. Discontinued cefepime 01/26 -ID consulted-Dr. Foster following - LINES: Utilize peripheral IV. Central line if indicated -Right IJ central line placed 01/16/2018. Respiratory therapist placed art line 01/16/18-central line and arterial line discontinued 01/20 Progress Note: Quality VTE Deep Vein Thrombosis/Pulmonary Embolism Present on Admission: No _ (1) Sepsis Qualifiers: Sepsis type:
--- NOTE | 2018-02-01 10:33 | P.PNNEU ---
Subjective Active Medications: Active Medications Acetaminophen (Tylenol) 650 mg PO Q6H PRN PRN Reason: Temp > 100.4 Albuterol (Albuterol Neb (Prn)) 2.5 mg NEB Q2HR NEB PRN PRN Reason: DYSPNEA Last Admin: 01/29/18 11:27 Dose: 2.5 mg Albuterol (Duoneb Neb (Nisha)) 1 ampul NEB Q4HR NEB [facility] Last Admin: 02/01/18 07:35 Dose: 1 ampul Artificial Tears (Tears Naturale Opth Drops) 1 drop EACH EYE Q8H [facility] Last Admin: 02/01/18 06:49 Dose: 1 drop Aspirin (Aspirin Chew) 81 mg PO DAILY [facility] Last Admin: 02/01/18 08:46 Dose: 81 mg Atorvastatin Calcium (Lipitor) 10 mg PO DAILY [facility] Last Admin: 02/01/18 08:46 Dose: 10 mg Bisacodyl (Dulcolax Supp) 10 mg RECTAL DAILY PRN PRN Reason: SEVERE CONSITIPATION Carvedilol (Coreg) 12.5 mg PO BID [facility] Last Admin: 02/01/18 08:46 Dose: 12.5 mg Chlorhexidine Gluconate (Peridex 0.12% Oral Kit) 15 ml OROPHARYNG BID@0800, 2000 [facility] Last Admin: 02/01/18 08:24 Dose: Not Given Dextrose (D50w Vial) 50 ml IV.PUSH UNSCH PRN PRN Reason: PER HYPOGLYCEMIA PROTOCOL Escitalopram Oxalate (Lexapro) 10 mg PO DAILY [facility] Last Admin: 01/16/18 09:18 Dose: 10 mg Gabapentin (Neurontin) 300 mg PO BID [facility] Last Admin: 01/16/18 09:19 Dose: 300 mg Glucagon (Glucagon Inj) 1 mg OTHER PRN PRN PRN Reason: for Hypoglycemia Protocol Dextrose (D5w Inj) 1,000 mls @ 42 mls/hr IV.CONT .[id number] [facility] Last Admin: 01/31/18 12:15 Dose: 42 mls/hr Insulin Aspart (Novolog Insulin Correctional Sugar Inj) 0 unit SQ ACHS [facility]; Protocol Last Admin: 02/01/18 08:24 Dose: Not Given Lactulose (Lactulose Liq) 30 ml PO DAILY PRN PRN Reason: SEVERE CONSITIPATION Lansoprazole (Prevacid Solutab) 30 mg NG/OG DAILY [facility] Last Admin: 02/01/18 08:46 Dose: 30 mg Levofloxacin (Levaquin) 500 mg PO Q48H [facility] Last Admin: 01/30/18 13:05 Dose: 500 mg Miscellaneous Medication () 1 each OROPHARYNG 0000,0400,1200,1600 [facility] Last Admin: 02/01/18 04:16 Dose: Not Given Nifedipine (Procardia Xl) 30 mg PO BID [facility] Last Admin: 02/01/18 08:46 Dose: 30 mg Ondansetron HCl (Zofran Inj) 4 mg IV.PUSH Q6H PRN PRN Reason: NAUSEA OR VOMITING Senna/Docusate Sodium (Bel-Colace) 1 tab PO BID [facility] Last Admin: 02/01/18 08:46 Dose: 1 tab Sennosides (Senokot) 17.2 mg PO Q12H PRN PRN Reason: Moderate Constipation Sodium Chloride (Ns Flush) 2 ml IV.FLUSH BID [facility] Last Admin: 02/01/18 08:47 Dose: Not Given Sodium Chloride (Ns Flush) 2 ml IV.FLUSH PRN PRN PRN Reason: FLUSH AFTER USING IV ACCESS Last Admin: 01/31/18 08:44 Dose: 2 ml Tamsulosin HCl (Flomax) 0.4 mg PO [facility] Last Admin: 01/31/18 21:58 Dose: 0.4 mg Temazepam (Restoril) 15 mg PO [facility] Last Admin: 01/31/18 21:59 Dose: 15 mg Allergies/Adverse Reactions: Allergies Allergy/AdvReac Type Severity Reaction Status Date / Time No Known Allergies Allergy Verified 01/02/18 12:33 Physical Exam Vital signs: Vital Signs 01/31/18 11:31 01/31/18 12:00 01/31/18 16:00 Temperature 97.4 F L 98.9 F Pulse Rate 72 72 53 L Respiratory Rate 16 18 18 Blood Pressure 129/68 100/75 Pulse Oximetry 99 93 L 01/31/18 20:00 01/31/18 21:42 01/31/18 21:44 Temperature 97.7 F Pulse Rate 76 81 Respiratory Rate 20 20 Blood Pressure 141/65 H Pulse Oximetry 97 94 L 02/01/18 00:00 02/01/18 03:29 02/01/18 04:00 Temperature 97.6 F Pulse Rate 68 70 70 Respiratory Rate 20 18 Blood Pressure 123/59 L Pulse Oximetry 96 02/01/18 07:35 02/01/18 08:00 Temperature 98.1 F Pulse Rate 56 L 73 Respiratory Rate 16 20 Blood Pressure 151/71 H Pulse Oximetry 98 98 Intake & Output 01/31/18 02/01/18 02/01/18 18:59 06:59 18:59 Intake Total 360 / 360 60 / 60 Output Total 400 / 400 50 / 50 Balance -40 / -40 Weight 85.6 kg Intake: Oral 360 / 360 60 / 60 Output: Urine 400 / 400 50 / 50 Other: # Voids 3 # Incontinent Voids 2 Date of Last Bowel Movement 01/31/18 # Bowel Movements 0 Narrative: awake moving well can see to r - Urinary Catheter Management Indwelling Urethral Catheter Cath placed during this visit: yes, but has since been removed by the nurse Reason for continuing: Chronic Urinary Retention Insertion date: 01/16/18 Insertion time: 17:30 Removal date: 01/28/18 Removal time: 14:00 Objective Laboratory Results - last 24 hr 01/31/18 01/31/18 01/31/18 11:55 17:24 20:00 Sodium Potassium Chloride Carbon Dioxide Anion Gap BUN Creatinine Estimated GFR POC Glucose 125 H 96 129 H Random Glucose Calcium 02/01/18 02/01/18 05:13 07:32 Sodium 145 Potassium 4.2 Chloride 115 H Carbon Dioxide 24.3 Anion Gap 6 BUN 34 H Creatinine 1.42 H Estimated GFR 47 L POC Glucose 98 Random Glucose 103 Calcium 7.6 L D Review/Management - Review/Management Plan: imp labs ok looks better fu echo and ct pacemaker sepsis likley left occipital cva some hemorrhagic component vs abcess less likley 01/23/18 he was more interactive yesterday bun 107 creat a bit better continue to hold sedatives echo and eeg neg check us carotid repeat ct no change this is likely hemorrhagic infarct afib a large abcess could be considered and i will have nusu weigh in my hope is he will awaken off sedatives as he metabolic condition improves i will be out of town call dr davis over weekend if ? o/w i will fu friday ------- 01/26/18 us left some mod dz check ldl nusu note seen prob hemorrhagic infarct recheck ct 10 days as dw med team i would have nusu weigh in on if they think he could be anticoagulated or not ie bleeding risk asa 81 for now much better may be aphasic hard to say 01/28/18 ldl nl looks well and nonfocal now i would ask estela if they think we can start anticoag 01/31/18 looks well neurowise and await estela to weigh in on anticoag timing afib cva vs abcess recheck ct 02/01/18 i dw rads they thought the left occipital area abn looks a little smaller has sign blood in it she considered tumor will have to fu another ct in 2 weeks personally i would like it to look a bit better than it does so cause is still up in air cva vs abcess vs tumor i would have estela weigh in on it again please
--- NOTE | 2018-02-01 11:41 | P.PNNP ---
Subjective Interval history: No acute events overnight. Patient is restless. Creatinine continues to improve at 1.4 today. <Kaylen Marie - Last Filed: 02/01/18 11:36> Physical Exam Vital signs: Vital Signs 01/31/18 12:00 01/31/18 16:00 01/31/18 20:00 Temperature 97.4 F L 98.9 F 97.7 F Pulse Rate 72 53 L 76 Respiratory Rate 18 18 20 Blood Pressure 129/68 100/75 141/65 H Pulse Oximetry 99 93 L 97 01/31/18 21:42 01/31/18 21:44 02/01/18 00:00 Temperature 97.6 F Pulse Rate 81 68 Respiratory Rate 20 20 Blood Pressure 123/59 L Pulse Oximetry 94 L 96 02/01/18 03:29 02/01/18 04:00 02/01/18 07:35 Temperature Pulse Rate 70 70 56 L Respiratory Rate 18 16 Blood Pressure Pulse Oximetry 98 02/01/18 08:00 Temperature 98.1 F Pulse Rate 73 Respiratory Rate 20 Blood Pressure 151/71 H Pulse Oximetry 98 Intake & Output 01/31/18 02/01/18 02/01/18 18:59 06:59 18:59 Intake Total 360 / 360 60 / 60 Output Total 400 / 400 50 / 50 Balance -40 / -40 10 / 10 Weight 85.6 kg Intake: Oral 360 / 360 60 / 60 Output: Urine 400 / 400 50 / 50 Other: # Voids 3 # Incontinent Voids 2 Date of Last Bowel Movement 01/31/18 01/31/18 # Bowel Movements 0 Narrative: GENERAL: Alert and oriented X 2 SKIN: Warm and dry. NECK: Supple, trachea midline. No JVD CARDIOVASCULAR: Regular rate and rhythm without murmurs, gallops, or rubs. RESPIRATORY: Breath sounds equal bilaterally. No accessory muscle use. Crackles in bases GASTROINTESTINAL: Abdomen soft, non-tender, Positive BS MUSCULOSKELETAL: No cyanosis, or edema. BACK: Nontender without obvious deformity. No CVA tenderness. - Urinary Catheter Management Indwelling Urethral Catheter Cath placed during this visit: yes, but has since been removed by the nurse Reason for continuing: Chronic Urinary Retention Insertion date: 01/16/18 Insertion time: 17:30 Removal date: 01/28/18 Removal time: 14:00 <Kaylen Marie - Last Filed: 02/01/18 11:36> Vital signs: Vital Signs 01/31/18 21:44 02/01/18 00:00 02/01/18 03:29 Temperature 97.6 F Pulse Rate 68 70 Respiratory Rate 20 18 Blood Pressure 123/59 L Pulse Oximetry 94 L 96 02/01/18 04:00 02/01/18 07:35 02/01/18 08:00 Temperature 98.1 F Pulse Rate 70 56 L 73 Respiratory Rate 16 20 Blood Pressure 151/71 H Pulse Oximetry 98 98 02/01/18 11:45 02/01/18 12:00 02/01/18 16:00 Temperature 97.4 F L 98.2 F Pulse Rate 68 69 66 Respiratory Rate 16 20 20 Blood Pressure 128/58 L 132/61 Pulse Oximetry 95 97 02/01/18 20:54 Temperature Pulse Rate Respiratory Rate Blood Pressure Pulse Oximetry 98 Intake & Output 02/01/18 02/01/18 02/02/18 06:59 18:59 06:59 Intake Total 60 / 60 1360 / 1360 Output Total 50 / 50 Balance 10 1360 / 1360 Weight 85.6 kg Intake: IV 1000 / 1000 D5W Inj 1,000 ML @ 42 mls/hr IV 1000 / 1000 .CONT .[id number] [facility] Rx#:[id number] Oral 60 / 60 360 / 360 Output: Urine 50 / 50 Other: # Voids 4 # Incontinent Voids 2 Date of Last Bowel Movement 01/31/18 01/31/18 # Bowel Movements 0 - Urinary Catheter Management Indwelling Urethral Catheter Cath placed during this visit: no <Ender Duarte - Last Filed: 02/01/18 21:43> Assessment and Plan - Assessment (1) Acute kidney injury Code(s): N17.9 - Acute kidney failure, unspecified Status: Acute Plan: Patient with Acute kidney injury and Hyperkalemia. Most likely has ATN due to hypotension. Creatinine continue to improve at 1.57 today, non oliguric Maintain I+O Avoid Nephrotoxins. Will continue to follow electrolytes and fluid status (2) Sepsis Code(s): A41.9 - Sepsis, unspecified organism Status: Acute Plan: Blood cultures positive for Pseudomonas on Levaquin (3) Acute UTI Code(s): N39.0 - Urinary tract infection, site not specified Status: Acute Plan: On levaquin for Pseudomonas. (4) Hypernatremia Code(s): E87.0 - Hyperosmolality and hypernatremia Status: Acute Plan: sodium level has increased at 145, on D5 W. <Kaylen Marie - Last Filed: 02/01/18 11:36> - Assessment (1) Acute kidney injury Code(s): N17.9 - Acute kidney failure, unspecified Status: Acute Plan: Patient seen and examined, agree with above. Creatinine continue to improve, now 1.57. Follow the urine out put and BMP. (2) Sepsis Code(s): A41.9 - Sepsis, unspecified organism Status: Acute (3) Acute UTI Code(s): N39.0 - Urinary tract infection, site not specified Status: Acute (4) Hypernatremia Code(s): E87.0 - Hyperosmolality and hypernatremia Status: Acute <Ender Duarte - Last Filed: 02/01/18 21:43>
[2018-02-01] MEDS: levoFLOXacin 500 MG Tablet PO SCH (12:26)
[2018-02-01] MEDS: Dextrose 5% in Water Inj 1,000 ML IV.CONT SCH ×2 (12:27→17:46)
[2018-02-01] MEDS: Temazepam 15 MG Capsule PO SCH (21:24)
[2018-02-02] MEDS: Artificial Tears Opth Drops 15 ML Bottle EACH EYE SCH ×4 (03:03→22:37)
[2018-02-02] MEDS: Oral Hygiene Kit OROPHARYNG SCH ×4 (03:03→16:03)
[2018-02-02] MEDS: Chlorhexidine 0.12% Oral Kit 15 ML UDC OROPHARYNG SCH ×2 (09:20→22:34)
[2018-02-02] MEDS: Insulin NovoLOG Aspart Correctional Sugar Inj SQ SCH ×4 (09:20→22:36)
[2018-02-02] MEDS: Carvedilol 12.5 MG Tablet PO SCH ×2 (09:21→22:36)
[2018-02-02] MEDS: Senna/Docusate Sodium 8.6/50 MG Tablet PO SCH ×2 (09:21→22:35)
--- NOTE | 2018-02-02 11:26 | P.PNPAL ---
Palliative care continues to follow along with Mr. Cheung. Patient seen in room 1405, sleeping comfortably. No family at bedside. Spoke with patient's via telephone. She is currently on her way to the hospital. Voices concern regarding patient's speech and reports she is unable to understand him. Also expressed concern over his lack of appetite. States she brought in homemade soup for him. Informed her to speak with RN prior to eating due to mechanical soft diet recommended by speech. Per CM notes patient is being evaluated for [facility] placement. Also family looking for second choice for SNF placement if [facility] does not accept. Per PT notes, Mr. Cheung continues with weakness and does not appear to be very active in therapy. denies any questions at this time. Appreciative of palliative care call and support. Palliative care will continue to follow along throughout hospitalization.
[2018-02-02] MEDS: Dextrose 5% in Water Inj 1,000 ML IV.CONT SCH (13:53)
--- NOTE | 2018-02-02 15:02 | P.PNNP ---
Subjective Interval history: Seen in AM. No acute events overnight. Resting comfortably. <Kaylen Marie - Last Filed: 02/02/18 14:58> Physical Exam Vital signs: Vital Signs 02/01/18 16:00 02/01/18 20:00 02/01/18 20:54 Temperature 98.2 F 98.1 F Pulse Rate 66 76 Respiratory Rate 20 17 Blood Pressure 132/61 113/59 L Pulse Oximetry 97 94 L 98 02/02/18 00:00 02/02/18 04:00 02/02/18 08:00 Temperature 98.1 F 97.6 F 98.0 F Pulse Rate 60 70 60 Respiratory Rate 17 17 16 Blood Pressure 119/58 L 121/56 L 142/63 H Pulse Oximetry 97 98 96 02/02/18 10:27 02/02/18 12:00 02/02/18 12:33 Temperature 98.2 F Pulse Rate 64 Respiratory Rate 18 Blood Pressure 123/59 L Pulse Oximetry 98 99 98 Intake & Output 02/01/18 02/02/18 02/02/18 18:59 06:59 18:59 Intake Total 1360 / 1360 1000 / 1000 Output Total 100 / 100 Balance 1360 / 1360 -100 / -100 1000 / 1000 Intake: IV 1000 / 1000 1000 / 1000 D5W Inj 1,000 ML @ 42 mls/hr IV 1000 / 1000 1000 / 1000 .CONT .[id number] [facility] Rx#:[id number] Oral 360 / 360 Output: Urine 100 / 100 Other: # Voids 4 3 Date of Last Bowel Movement 01/31/18 02/01/18 # Bowel Movements 5 Narrative: GENERAL: Alert and oriented X 2 SKIN: Warm and dry. NECK: Supple, trachea midline. No JVD CARDIOVASCULAR: Regular rate and rhythm without murmurs, gallops, or rubs. RESPIRATORY: Breath sounds equal bilaterally. No accessory muscle use. Crackles in bases GASTROINTESTINAL: Abdomen soft, non-tender, Positive BS MUSCULOSKELETAL: No cyanosis, or edema. BACK: Nontender without obvious deformity. No CVA tenderness. - Urinary Catheter Management Indwelling Urethral Catheter Cath placed during this visit: yes, but has since been removed by the nurse Reason for continuing: Chronic Urinary Retention Insertion date: 01/16/18 Insertion time: 17:30 Removal date: 01/28/18 Removal time: 14:00 <Kaylen Marie - Last Filed: 02/02/18 14:58> Vital signs: Vital Signs 02/02/18 00:00 02/02/18 04:00 02/02/18 08:00 Temperature 98.1 F 97.6 F 98.0 F Pulse Rate 60 70 60 Respiratory Rate 17 17 16 Blood Pressure 119/58 L 121/56 L 142/63 H Pulse Oximetry 97 98 96 02/02/18 10:27 02/02/18 12:00 02/02/18 12:33 Temperature 98.2 F Pulse Rate 64 Respiratory Rate 18 Blood Pressure 123/59 L Pulse Oximetry 98 99 98 02/02/18 16:00 02/02/18 17:37 Temperature 97.4 F L Pulse Rate 63 Respiratory Rate 18 Blood Pressure 124/60 Pulse Oximetry 99 99 Intake & Output 02/02/18 02/02/18 02/03/18 06:59 18:59 06:59 Intake Total 1240 / 1240 Output Total 100 / 100 300 / 300 Balance -100 / -100 940 / 940 Intake: IV 1000 / 1000 D5W Inj 1,000 ML @ 42 mls/hr IV 1000 / 1000 .CONT .[id number] [facility] Rx#:[id number] Oral 240 / 240 Output: Urine 100 / 100 300 / 300 Other: # Voids 3 # Incontinent Voids 1 Date of Last Bowel Movement 02/01/18 02/02/18 # Bowel Movements 5 1 - Urinary Catheter Management Indwelling Urethral Catheter Cath placed during this visit: no <Ender Duarte - Last Filed: 02/02/18 21:24> Assessment and Plan - Assessment (1) Acute kidney injury Code(s): N17.9 - Acute kidney failure, unspecified Status: Acute Plan: Patient with Acute kidney injury and Hyperkalemia. Most likely has ATN due to hypotension. Creatinine stable, non oliguric, no new labs today. Maintain I+O. Avoid Nephrotoxins. Will continue to follow electrolytes and fluid status (2) Sepsis Code(s): A41.9 - Sepsis, unspecified organism Status: Acute Plan: Blood cultures positive for Pseudomonas on Levaquin (3) Acute UTI Code(s): N39.0 - Urinary tract infection, site not specified Status: Acute Plan: On levaquin for Pseudomonas. (4) Hypernatremia Code(s): E87.0 - Hyperosmolality and hypernatremia Status: Acute Plan: Monitoring. <Kaylen Marie - Last Filed: 02/02/18 14:58> - Assessment (1) Acute kidney injury Code(s): N17.9 - Acute kidney failure, unspecified Status: Acute Plan: Patient seen and examined, agree with above. No new BMP, Creatinine was 1.4 yesterday. Avoid Nephrotoxins. (2) Sepsis Code(s): A41.9 - Sepsis, unspecified organism Status: Acute (3) Acute UTI Code(s): N39.0 - Urinary tract infection, site not specified Status: Acute (4) Hypernatremia Code(s): E87.0 - Hyperosmolality and hypernatremia Status: Acute <Ender Duarte - Last Filed: 02/02/18 21:24>
--- NOTE | 2018-02-02 16:01 | P.DIET ---
Nutritional Evaluation Type of nutrition evaluation: follow-up Nutrition consult regarding: Tube Feeding Screening comments: 01/18 TF review Objective - Diagnosis UTI, Dehydration, elevated troponin - Objective Body Mass Index: 25.6 [place] body weight: 81 kg % IBW: 108 (IBW: 81kg) Body Weight Used for Calculations: IBW, Actual (85.6kg) Energy Needs - Lower Range (kCal/kg): 25 Energy Needs - Upper Range (kCal/kg): 30 Lower Limit kCal/kg (kCals): 2,140 Upper Limit kCal/kg (kCals): 2,568 Lower Limit Protein Factor (Grams per Kg): 1 Upper Limit Protein Factor (Grams per Kg): 1.2 Lower Protein Needs (Protein): 86 Upper Protein Needs (Protein): 103 Dietitian Reviewed in Medical Record: Current diet, Curent medications, Intake & Output, Labs, Medical history Diet Order: Mech soft, 2gNa Speech Therapy Recommendations: Yes (mech soft w/ chopped meat, nectar thick) Objective Comments: PMH: bladder cancer, thoracic and abdominal aortic aneurysm, Bronchiectasis, Restrictive lung disease, COPD, CHF, Hyperlipidemia, HTN Labs; (01/31) Cr 1.57 trending down; (02/01) 1.42 LBM 02/02 Skin: pressure ulcers (midline sacrum, L buttocks) Assessment Assessment: TF FU; Pt is at high nutritional risk r/t dx and current clinical status. Diet order remains as mech soft with chopped meat and nectar thick liquids. Spoke with pt's today who is concerned that the pt is not eating his meals because he is not receiving help and not sitting up right in his chair. Pt's was in the room feeding him at the time and explained that if someone helps him he will eat his meals. Discussed 's concerns with RN who reports that she has offered to help pt eat but he has refused help at times. Will recommend to continue with feeding assistance and PO encouragement. also asked if she could bring in Boost for her and I explained that Boost is not a nectar thick liquid. I offered for the pt to try Ensure pudding as it is thickened and they were agreeable. Will recommend Ensure pudding nutritional supplement TID to provide 170kcal and 4g protein. Will continue to monitor labs , I/O's and PO intake. Recommendations: 1.Continue with current diet per ST 2. Ensure pudding TID 3.Feeding assistance with meals 4. Continue to monitor PO intake Dietitian to Monitor: Lab values, Renal labs, Intake & Output, Diet tolerance, PO Intake, Swallow recommendations, Medical course
--- NOTE | 2018-02-02 16:45 | P.PNIM ---
Subjective Interval history: No new complaints. Physical Exam Vital signs: Last Vital Signs Temp 98.2 F 02/02/18 12:00 Pulse 64 02/02/18 12:00 Resp 18 02/02/18 12:00 BP 123/59 L 02/02/18 12:00 Pulse Ox 98 02/02/18 12:33 Narrative: GENERAL: male patient, AAOx3, appears to be uncomfortable SKIN: Warm and dry. HEENT: Atraumatic. Normocephalic. Pupils equal and round. No scleral icterus. No injection or drainage. No nasal bleeding or discharge. Mucous membranes pink and moist. NECK: Trachea midline. No JVD. CARDIO: Regular rate and rhythm. RESP: No accessory muscle use. Clear to auscultation. Breath sounds equal bilaterally. ABD: +BS, soft, non-tender, nondistended. Hepatic and splenic margins not palpable. EXT: Extremities without clubbing, cyanosis, or edema. No obvious deformities. NEURO: Awake and alert. No obvious cranial nerve deficits. Motor grossly within normal limits. Five out of 5 muscle strength in the arms and legs. Normal speech. PSYCH: Appropriate mood and affect; insight and judgment normal. Results Labs CBC & Chem 7: 01/31/18 08:14 02/01/18 05:13 Assessment and Plan Assessment (1) Acute UTI: Code(s): N39.0 - Urinary tract infection, site not specified Status: Acute (2) Elevated troponin: Code(s): R74.8 - Abnormal levels of other serum enzymes Status: Acute (3) Dehydration: Code(s): E86.0 - Dehydration Status: Acute (4) History of bladder cancer: Code(s): Z85.51 - Personal history of malignant neoplasm of bladder Status: Acute (5) Meatal stenosis: Status: Acute Plan UTI BECK on chronic kidney disease Dehydration - Pt is an 82 y/o male with bladder cancer who recently underwent meatal dilation/bilateral retrograde pyelograms/bladder biopsy with fulguration/ bilateral ureteroscopy with laser ablation of distal ureteral masses/right ureteroscopic stone extraction and bilateral ureteral stent placement with Dr. Feliciano on 01/05/18. Pts reports that he had his Talbot catheter removed at Dr. Feliciano's office yesterday. She states that the pt has not been eating or drinking well over the last few weeks and has been somewhat weaker than normal. Then yesterday after the Talbot was removed the pt had difficulty urinating and last night started becoming more nauseated and started vomiting during the night last night. Pts reports that he had similar issues in August 2017 after a previous urological procedure after Talbot removal but was not this bad and was treated for a UTI at that time. - His labs in the ED revealed a WBC count of 14, Cr 1.78, BUN 30, GFR 37. This seems to be worse than his baseline renal function when outpt labs were reviewed. 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 - Pt was given 1L bolus of IVF in the ED - Will give 1 more liter of NS at 100mL/hr but monitor closely for any signs of volume overload - Clear liquid diet for now and advance diet as tolerated to heart healthy diet. - Consult placed to Dr. Feliciano - Bladder scan now, pt may need Talbot placed - Pt was given a dose of Rocephin in the ED and we will continue this - Await Urine culture results - Cont. Flomax 0.4mg HS - PT evaluation - Supportive care - Monitor labs Elevated troponin, etiology unclear - No reports of chest pain. - Pts labs also indicated an elevated troponin I 0.09 in the ED. - Get repeat troponins Hx of CHF, currently compensated - Last echo reviewed, pt with some noted systolic and diastolic dysfunction. - Cont. home meds, including, Norvasc 10mg daily, Coreg 6.25mg BID, Imdur 30mg daily - Hold Lasix and potassium for now with BECK but this will need to be resumed to avoid volume overload once renal function improves. COPD Restrictive lung disease JAVIER - Pt is chronically on 2L of supplemental O2 - Duonebs PRN - Pt has not been using his CPAP at home in the last few months per his , due to it not fitting comfortably. He will need to followup with his [facility] center for adjustment for this. Progress Note: Quality VTE Deep Vein Thrombosis/Pulmonary Embolism Present on Admission: No
--- NOTE | 2018-02-02 16:50 | P.PNIM ---
Subjective Interval history: No new complaints. Physical Exam Vital signs: Last Vital Signs Temp 98.2 F 02/02/18 12:00 Pulse 64 02/02/18 12:00 Resp 18 02/02/18 12:00 BP 123/59 L 02/02/18 12:00 Pulse Ox 98 02/02/18 12:33 Narrative: GENERAL: male patient, AAOx3, appears to be uncomfortable SKIN: Warm and dry. HEENT: Atraumatic. Normocephalic. Pupils equal and round. No scleral icterus. No injection or drainage. No nasal bleeding or discharge. Mucous membranes pink and moist. NECK: Trachea midline. No JVD. CARDIO: Regular rate and rhythm. RESP: No accessory muscle use. Clear to auscultation. Breath sounds equal bilaterally. ABD: +BS, soft, non-tender, nondistended. Hepatic and splenic margins not palpable. EXT: Extremities without clubbing, cyanosis, or edema. No obvious deformities. NEURO: Awake and alert. No obvious cranial nerve deficits. Motor grossly within normal limits. Five out of 5 muscle strength in the arms and legs. Normal speech. PSYCH: Appropriate mood and affect; insight and judgment normal. Results Labs CBC & Chem 7: 01/31/18 08:14 02/01/18 05:13 Assessment and Plan Assessment (1) Acute UTI: Code(s): N39.0 - Urinary tract infection, site not specified Status: Acute (2) Elevated troponin: Code(s): R74.8 - Abnormal levels of other serum enzymes Status: Acute (3) Dehydration: Code(s): E86.0 - Dehydration Status: Acute (4) History of bladder cancer: Code(s): Z85.51 - Personal history of malignant neoplasm of bladder Status: Acute (5) Meatal stenosis: Status: Acute Plan - Pt is an 82 y/o male with bladder cancer who recently underwent meatal dilation/bilateral retrograde pyelograms/bladder biopsy with fulguration/ bilateral ureteroscopy with laser ablation of distal ureteral masses/right ureteroscopic stone extraction and bilateral ureteral stent placement with Dr. Feliciano on 01/05/18. . She states that the pt has not been eating or drinking well over the last few weeks and has been somewhat weaker than normal. Then yesterday after the Talbot was removed the pt had difficulty urinating and last night started becoming more nauseated and started vomiting during the night last night. Pts reports that he had similar issues in August 2017 after a previous urological procedure after Talbot removal but was not this bad and was treated for a UTI at that time. 1. 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 01/23 large 6.1 x 3.9 cm left occipital abnormality, probable hemorrhagic infarct Followed by Dr. Kemp/neurology -Neurosurgery consulted for possible hemorrhagic infarct left parieto- occipital. Recommended repeat CT brain in 2 weeks with contrast if able cannot rule out mass lesion or abscess into continue conservative management. Dr. Doshi returns 01/31 - re -recommendation regarding antiplatelet or anticoagulation -Altered mental status/encephalopathy secondary to metabolic encephalopathy and severe sepsis and acute stroke -neurology repeated the CT 01/31. left occipital cva with sah within noted. Continue baby aspirin 81 mg daily per neurology. awaiting any future anticoagulation recc per nsg - BP stable - PT - anticipate d/c to SNF in 1-2 days - hypernatremia resolved - Will clarify anticoagulation with Neuosurgery prior to discharge Non-sustained SVT, asymptomatic - continue coreg - 2D echo 07/24/17: Estimated EF 45-50%, abnormal LV diastolic function, mild to moderate AR - observe Bronchiectasis/Restrictive lung disease/COPD, chronically on 2L of supplemental O2 Obstructive sleep apnea on CPAP at night Acute hypoxemic respiratory failure Extubated 01/27. Currently on room air. -Albuterol/ipratropium aerosols every 4 hours with albuterol aerosols every 2 hours as needed -Incentive spirometry while awake CHF/systolic Hyperlipidemia HTN Atrial fibrillation currently rate control AAA/Thoracic aortic aneurysm -Developed A. fib with RVR 01/17/2018. Diltiazem 30 mg 4 times daily initiated.. This is discontinued 01/27 carvedilol 12.5 twice daily. resumed amlodipine at 5 mg daily -Currently rate controlled but remains in A. fib, off IV heparin due to hemorrhagic infarct -Diuresis per nephrology. -2D echo 07/24/17: Estimated EF 45-50%, abnormal LV diastolic function, mild to moderate AR -Currently on atorvastatin 10 mg daily for hyperlipidemia History meatal stenosis BPH Status post recent bilateral ureteroscopy suspicious for recurrent urothelial cancer involving both ureteral orifices. Status post recent right ureteroscopy with laser lithotripsy of distal ureteral calculus Status post bilateral ureteral stent placement Acute kidney injury likely secondary to hypoperfusion/hypotension Noninvasive low-grade papillary urethrothelial carcinoma -Monitor renal function closely. Talbot catheter. Patient's previous indwelling catheter was removed by Dr. Feliciano 01/16/18 -Urology Dr. Feliciano is following -Nephrology Dr. Duarte following for for worsening oliguric renal failure creatinine Monitor for need for hemodialysis -CT of abdomen pelvis on admission showed bilateral ureteral stents are in place and there is mild distention of the collecting systems bilaterally. Continue tamsulosin 0.4 mg daily Pseudomonas bacteremia/urosepsis -Antibiotics continue levofloxacin. Discontinued cefepime 01/26 -ID consulted-Dr. Foster following - Progress Note: Quality VTE Deep Vein Thrombosis/Pulmonary Embolism Present on Admission: No
[2018-02-02] MEDS: Temazepam 15 MG Capsule PO SCH (22:35)
[2018-02-03] MEDS: Oral Hygiene Kit OROPHARYNG SCH ×4 (00:37→16:26)
[2018-02-03] MEDS: Artificial Tears Opth Drops 15 ML Bottle EACH EYE SCH ×2 (07:23→16:26)
[2018-02-03] MEDS: Insulin NovoLOG Aspart Correctional Sugar Inj SQ SCH ×4 (09:40→21:15)
[2018-02-03] MEDS: Chlorhexidine 0.12% Oral Kit 15 ML UDC OROPHARYNG SCH ×2 (09:40→21:14)
[2018-02-03] MEDS: Carvedilol 12.5 MG Tablet PO SCH ×2 (09:41→21:15)
[2018-02-03] MEDS: Senna/Docusate Sodium 8.6/50 MG Tablet PO SCH ×2 (09:41→21:16)
--- NOTE | 2018-02-03 10:14 | P.PNWCN ---
Wound Care Nurse Consult Description: Received wound pressure ulcer consult for gluteal cleft area from Doctor Thomson. Communicated with: RN Kimberli Freeman [address] [place] [address] and call placed to Doctor Thomson for orders. Recommendation: 1.Please cleanse wound to coccyx area with normal saline only and pat dry. 2. Apply Santyl ointment ashley thickness to wound bed. 3. Pack wound loosely with saline moistened 2x2 gauze pad. 4. Apply Calazime skin protectant paste in a thin layer lining wound edges. 5. Cover wound with bordered gauze and change daily. 6. Please encourage patient to assist with repositioning and turning in bed every 2 hours for offloading of pressure from andre prominences. 7. Please place patient on low airloss airapy bed when it arrives. 8. limit use of layers under patient. Wound/Pressure Injury - Wound Coccyx Wound Staging: Unstageable Wound Assessment: Ongoing Wound Type: Pressure Injury Is This a Chronic Wound: No Requested from Provider a Wound Care Consult: Yes (Patient seen today by inpatient wound care nurse) Length (cm): 3 Width (cm): 1 Depth (cm): 0.5 (~0.5cm with slough at base) Wound Bed Appearance: Yaurel, White, Yellow Wound Bed Appearance: Wound bed presents with ~85% yellow slough and ~15% pink tissue. Surrounding Tissue Appearance: Yaurel (denuded skin that is peeling and dry) Surrounding Tissue Temperature: Cool Drainage Description: Serosanguinous Drainage Amount: Scant Drainage Odor: No Odor Dressing Status: Changed Cleansing Solution: Saline Wound Packing Type: Gauze Pads (moistened fluffed 2x2 gauze pads) Cover Dressing: Bordered gauze Wound Dressing Change Date: 02/03/18 Wound Margin Description: Wound margins are well defined and appear open. - Additional Information Patient seen on for evaluation of gluteal cleft pressure ulcer. Patient is able to position self with moderate assistance toward the R side for assessment. Patient is noted with full thickness wound to gluteal cleft area over coccyx area. Periwound and bilateral buttocks present with denuded skin peeling skin that appears to be resolving. Wound bed presents with ~85% yellow slough that is adherent and ~15 % pink tissue. Wound was cleansed with normal saline and patted dry. Skin barrier film was applied to periwound and bilateral buttock denuded skin. Applied saline moistened, fluffed gauze pad packed loosely to wound bed and covered with Bordered gauze. Full wound description, measurements and wound care recommendations are noted above. Patient is positioned off bottom with pillow in place for support. Patient tolerated wound assessment and dressing change well.
[2018-02-03] MEDS: levoFLOXacin 500 MG Tablet PO SCH (14:02)
[2018-02-03] MEDS: Dextrose 5% in Water Inj 1,000 ML IV.CONT SCH (14:03)
--- NOTE | 2018-02-03 14:30 | P.PNPAL ---
Reason for Visit Reason for visit: a. To assist with evaluation and management of symptoms including: Encephalopathy, pain, dyspnea b. To assist medical decision maker(s) with: better understanding of current medical conditions; weighing benefits/burdens of medical treatment options; making medical treatment decisions. Subjective Subjective/Interval History: LATE entry seen @1200 Patient seen to follow up on comfort, goals w pt/decision maker. Received VM from son prior to my arrival on pt unit requesting update on pt. He remains stable post exutbation 01/28. Jagdish PHILLIPS. PT, ST following. On soft diet w nectar thick, poor intake 0-25% most meals - not meeting caloric needs for healing/recovery. Last CXR 01/28=Lung volumes are low , otherwise no acute process. Repeat CT brain 01/31 =Interval development of what appears to be subarachnoid hemorrhage within left occipital lobe infarction without any significant mass effect. Neurology following, recommends f/up w neurosurgery RE , repeat CT in few weeks. D/w medical attending, neurosurgery has weighed in , feels CT brain stable- no anticoagulation other than aspirin at this time, repeat CT brain in 3 weeks or so, in the future may consider novel anticoagulation. PT documentation notes pt often with minimal motivation to participate, though a few episodes more willing. Noted with significant weakness , poor sitting balance/trunk strength. [facility] has been following, I d/w CM to request follow up eval to determine if he is a candidate-- given his poor activity tolerance here I am not sure he would be a candidate for [facility] therapy , family will need to look at other skilled rehab options. CM informs [facility] liaison will re-eval pt. Pt seen today in room, at bedside. Patient is alert, partially oriented though forgetful of dates and year. Flat, keeps eyes closed. Endorses pain to his tailbone. Son arrives shortly after. Spoke with them at length at bedside. They expressed concern patient is "just lying there in bed "and they do not see that he is gotten much better. They have questions about recent questions about his eating and motivation. Explore with them trajectory following stroke, as well as prolonged ICU course, much of which he was unresponsive and completely dependent for all care. Explore that he is now recovering from his acute/critical phase; however he may still likely expect many days to weeks in the hospital and then rehab setting. Explore that he still may not regain enough strength or independent ability to function at home without caregivers. Explore that he remains flat and lethargic. Explore that he is eating very little and that there are multiple factors that contribute to rehabilitating and regaining strength. Currently on hospital day 18. They feel if he could just get up more and walk more with therapy that this may negate some of the other risks for complications such as this Tory issues etc. Review with them that with physical therapy efforts he does not always tolerate sitting in a chair, and some days does not have enough trunk control to stay sitting up on the side of the bed and that those physical skills months be stronger before he is able to do things like walk around the unit. They endorse he may have some component of depression, review with them and of antidepressant for situational depression although that would take some time to become efficacious, and is still a very small component of the challenges in his recovery. Attempt to engage him in these discussions he mostly keeps his eyes closed. He provides very little input when I repeatedly asked him "what do YOU want", he replies "what do you think, I just want to lay here in the bed for the rest of my life? ". asks that he may be provided nutritional supplement, reported that dietitian has recommended Ensure pudding which he is ordered to have. Family wishes to try to support his rehab efforts as best as they can, they wish to maximize attempts at mobility, they wish to maximize nutrition with supplements, and they are hopeful and antidepressant may offer some additional relief. Goals remain aggressive they are still hopeful that they can get the patient back home at some point. --Discussed at length with primary nurse, discussed with case management, discussed with medical attending Advance Directives Living Will: Never completed Health Care Surrogate: Never completed Durable Power of Fibreglass Laminator: Never completed Health Care Surrogate Name and Number: HCP: Lanie Cheung, : Objective Vital Signs: Vital Signs 02/02/18 16:00 02/02/18 17:37 02/02/18 20:00 Temperature 97.4 F L 98.2 F Pulse Rate 63 73 Respiratory Rate 18 19 Blood Pressure 124/60 146/67 H Pulse Oximetry 99 99 97 02/03/18 00:00 02/03/18 00:30 02/03/18 04:00 Temperature 98 F 97.9 F Pulse Rate 63 68 Respiratory Rate 17 19 Blood Pressure 142/82 H 138/76 128/60 Pulse Oximetry 95 96 02/03/18 08:00 Temperature 97.6 F Pulse Rate 71 Respiratory Rate 18 Blood Pressure 127/59 L Pulse Oximetry 98 Intake & Output 02/02/18 02/03/18 02/03/18 18:59 06:59 18:59 Intake Total 1240 / 1240 240 / 240 Output Total 300 / 300 Balance 940 / 940 240 / 240 Weight 82.1 kg Intake: IV 1000 / 1000 D5W Inj 1,000 ML @ 42 mls/hr IV 1000 / 1000 .CONT .[id number] [facility] Rx#:[id number] Oral 240 / 240 240 / 240 Output: Urine 300 / 300 Other: # Incontinent Voids 1 3 Date of Last Bowel Movement 02/02/18 02/02/18 # Bowel Movements 1 # Incontinent Bowel Movements 3 Physical Exam: CONSTITUTIONAL/GENERAL: This is an adequately nourished patient, lethargic, flat TUBES/LINES/DRAINS: left pacemaker, PIVs, NC SKIN: No jaundice, rashes, or lesions. No wounds seen anteriorly-reported few centimeter sacral wound which wound care is following.. Skin warm and dry. EYES: pupils equal and reactive. CARDIOVASCULAR: HR 60, no murmur. pedal pulses are faint. bilateral feet warm RESPIRATORY/CHEST: Symmetric, unlabored respirations on NC 2L. Shallow respiratory effort. Faint scattered rhonchi. Breath sounds equal bilaterally. GASTROINTESTINAL: Abdomen soft, nondistended. Bowel sounds present. GENITOURINARY: Without palpable bladder distension. Requests urinal to void during my visit, BUILDINGS AND GROUNDS COORDINATOR assisted MUSCULOSKELETAL: Extremities without clubbing, cyanosis, or edema. No mottling or clubbing. NEUROLOGICAL: sleeping but arouses to verbal. He is partially oriented. He answers questions with very soft , weak voice. speaks answers in 1-2 words. He does follow simple commands. Delay in answering questions. Moves all 4 extremities weakly. PSYCHIATRIC: Very flat Diagnostic Tests Laboratory: Laboratory Results - last 72 hr 01/31/18 01/31/1818 17:24 20:00 05:13 Sodium 145 Potassium 4.2 Chloride 115 H Carbon Dioxide 24.3 Anion Gap 6 BUN 34 H Creatinine 1.42 H Estimated GFR 47 L POC Glucose 96 129 H Random Glucose 103 Calcium 7.6 L D 02/01/18 02/01/18 02/01/18 07:32 12:14 16:56 Sodium Potassium Chloride Carbon Dioxide Anion Gap BUN Creatinine Estimated GFR POC Glucose 98 100 91 Random Glucose Calcium 02/01/18 02/02/18 02/02/18 20:22 04:52 08:14 Sodium Potassium Chloride Carbon Dioxide Anion Gap BUN Creatinine Estimated GFR POC Glucose 99 112 H 100 Random Glucose Calcium 02/02/18 02/02/18 02/02/18 12:35 17:23 20:05 Sodium Potassium Chloride Carbon Dioxide Anion Gap BUN Creatinine Estimated GFR POC Glucose 98 113 H 95 Random Glucose Calcium 02/03/18 02/03/18 02/03/18 05:40 08:02 12:16 Sodium Potassium Chloride Carbon Dioxide Anion Gap BUN Creatinine Estimated GFR POC Glucose 110 100 131 H Random Glucose Calcium Result Diagrams: 01/31/18 08:14 02/01/18 05:13 Imaging: ITS Impressions Chest X-Ray 01/28/18 06:00 CONCLUSION: Endotracheal tube and nasogastric tube no longer seen. Lung volumes are low and there is chronic cardiac silhouette enlargement. No acute cardiopulmonary disease identified. Head CT 01/31/18 00:00 CONCLUSION: 1. Interval development of what appears to be subarachnoid hemorrhage within left occipital lobe infarction without any significant mass effect. Procedures: 01/16 central line right IJ 01/16 intubated-- 01/28 medically extubated Assessment and Plan - Disease Oriented Problem List (1) Bladder tumor (2) Meatal stenosis (3) History of bladder cancer (4) Acute UTI (5) Acute kidney injury (6) Sepsis (7) Respiratory failure Pertinent Non-Medical Issues: Psychosocial: Born and raised in [place]. 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 Supported by , children, grandchildren as well as close friends. 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 Per [place] statutes his would be appropriate legal proxy. Palliative care will attempt to assist with completion of written advanced directives in coming days now that patient is off vent and encephalopathy is improving. Ethical issues impacting care: No ethical issues identified. Important Contacts: Lanie Cheung [phone], cell [phone] Prognosis: This patient was initially admitted with generalized symptoms of nausea, weakness but overall not feeling well. During hospital course has had worsening sepsis, multiorgan failure. He has recent diagnoses of bladder cancer. Given advanced age, Multiorgan issues, high risk for ongoing complications and setbacks. Code Status: Full Code Plan: Patient was extubated 01/28/18, will follow to determine patient's ability to make his own medical decisions in the coming days. Per [place] statutes his would be appropriate legal proxy. Palliative care will attempt to assist with completion of written advanced directives and clarification of goals of medical treatment with patient in coming days now that patient is off vent and encephalopathy is improving. Goals: Goals remain aggressive. wants to continue all available treatments at this time. She remains hopeful he may recover enough to return home after rehab course. Family wishes to maximize mobility for improved rehabilitation. --I will place nursing order for side of bed 3 times daily with meals, as pt able to tolerate --[facility] liaison to reevaluate patient today CODE STATUS:full code SYMPTOMS: --Dyspnea Extubated 01/28/18. s/p CVA,now on NC 2L. Ongoing risk for aspiration, pneumonia 2/2 to immobile, poor nutritional status. On modified diet. Hx COPD. Most recent CXR stable/no acute process. --Dysphagia- potential r/t CVA ; 01/[address] evaluation recommended mech soft diet and nectar thick liquids. Manager [employer] has also recommended ENSURE pudding TID, family bringing some foods in from home, instructed all need to be thickened. -- malnutrition- poor appetite, poor intake since extubation, 0-25% of meals. Would be high risk for aspiration if feeding tube pursued. Pt denies n/v or GI complaints. not ideal candidate for megace 2/2 thromboembolic risk. --Encephalopathy-multifactorial, metabolic. prev. with Multiorgan failure, now stabilized. . High risk for future CVA. Slight improvement overall since ICU course, though not progressing with rehab. Family hopeful patient will continue to improve. As pt becomes more alert, may to be able to participate in goals of medical treatment. --Pain-+ sacral pain 2/2 breakdown, debilitated primarily bedbound. Other potential sources would include bedbound status, recent invasive procedures, including cystoscopy. indicates he has not had any c/o pain pre hospitalization. currently has Tylenol available. prev. on Gabapentin which is on hold. While pain control may help pt feel better and ideally participate more, concern that stronger pain medication w opiate will contribute to lethargy and decrease ability to participate in rehab efforts. -Depression/failing to thrive-multifactorial. Patient previously independent , working in the [employer] business. Prolonged hospitalization- today is hospital day 18. Suffered significant CVA event. Prolonged ICU course. Flat affect, minimally verbal. Had been on Lexapro, consider resuming this. Palliative care will continue to follow during hospital course as condition evolves, to assist patient/decision-maker with understanding of medical conditions, weighing benefits/burdens of treatment options, for clarification of goals of treatment. Additionally will assist with any symptoms of palliative concern Attestation Attestation: To help prompt me to consider important information that might be impacting today's encounter and assessment, information from prior notes written by myself or my colleagues may have been "brought forward" into today's note. My signature on this note, however, is an attestation that I personally performed the exam, history, and/or decision-making noted today, and, unless otherwise indicated, the interactions with patient, family, and staff as well as the review of records all occurred today. I also attest that the listed assessment and stated plan reflect my best clinical judgment today based on the combination of historical information, prior notes, and today's exam/ interactions. When time spent is documented, it refers only to time spent today by the signer, or if indicated, combined time spent today by collaborating physician/nurse practitioner.
--- NOTE | 2018-02-03 15:06 | P.PNIM ---
Subjective Interval history: Pt remains quite weak. With PT, pt can only sit briefly on the side of the bed. Poor PO intake. Physical Exam Vital signs: Last Vital Signs Temp 97.9 F 02/03/18 12:00 Pulse 60 02/03/18 12:00 Resp 18 02/03/18 12:00 BP 123/60 02/03/18 12:00 Pulse Ox 99 02/03/18 12:00 Narrative: GENERAL: NAD SKIN: Warm and dry. HEENT: Atraumatic. Normocephalic. Pupils equal and round. No scleral icterus. No injection or drainage. No nasal bleeding or discharge. Mucous membranes pink and moist. NECK: Trachea midline. No JVD. CARDIO: Regular rate and rhythm. RESP: No accessory muscle use. Clear to auscultation. Breath sounds equal bilaterally. ABD: +BS, soft, non-tender, nondistended. Hepatic and splenic margins not palpable. EXT: Extremities without clubbing, cyanosis, or edema. No obvious deformities. NEURO: Awake and alert. No obvious cranial nerve deficits. Motor grossly within normal limits. Five out of 5 muscle strength in the arms and legs. Normal speech. PSYCH: A&Ox3, but diminished insight Results Labs CBC & Chem 7: 01/31/18 08:14 02/01/18 05:13 Assessment and Plan Assessment (1) Acute UTI: Code(s): N39.0 - Urinary tract infection, site not specified Status: Acute (2) Elevated troponin: Code(s): R74.8 - Abnormal levels of other serum enzymes Status: Acute (3) Dehydration: Code(s): E86.0 - Dehydration Status: Acute (4) History of bladder cancer: Code(s): Z85.51 - Personal history of malignant neoplasm of bladder Status: Acute (5) Meatal stenosis: Status: Acute Plan - Pt is an 82 y/o male with bladder cancer who recently underwent meatal dilation/bilateral retrograde pyelograms/bladder biopsy with fulguration/ bilateral ureteroscopy with laser ablation of distal ureteral masses/right ureteroscopic stone extraction and bilateral ureteral stent placement with Dr. Feliciano on 01/05/18. . She states that the pt has not been eating or drinking well over the last few weeks and has been somewhat weaker than normal. Then yesterday after the Talbot was removed the pt had difficulty urinating and last night started becoming more nauseated and started vomiting during the night last night. Pts reports that he had similar issues in August 2017 after a previous urological procedure after Talbot removal but was not this bad and was treated for a UTI at that time. 1. Left parieto-occipital hemorrhagic infarct -01/22, CT brain-abnormality left parietal occipital region. 01/23 large 6.1 x 3.9 cm left occipital abnormality, probable hemorrhagic infarct - comgmt with Neurology -Neurosurgery consulted for possible hemorrhagic infarct left parieto- occipital. Recommended repeat CT brain in 2 weeks with contrast if able cannot rule out mass lesion or abscess into continue conservative management. -Altered mental status/encephalopathy secondary to metabolic encephalopathy and severe sepsis and acute stroke -neurology repeated the CT 01/31. left occipital cva with sah within noted. - Case d/w Neurosurgery (02/02/18), Dr. Doshi. - Agreed with small SAH. - agrred with ASA 81mg daily - recommended repeat CT brain in 3-4 weeks. If SAH remains stable on repeat CT brain, then start novel anticoagulant. - BP stable - PT - anticipate d/c to SNF in 1-2 days - hypernatremia resolved Non-sustained SVT, asymptomatic - continue coreg - 2D echo 07/24/17: Estimated EF 45-50%, abnormal LV diastolic function, mild to moderate AR - observe Bronchiectasis/Restrictive lung disease/COPD, chronically on 2L of supplemental O2 Obstructive sleep apnea on CPAP at night Acute hypoxemic respiratory failure Extubated 01/27. Currently on room air. -Albuterol/ipratropium aerosols every 4 hours with albuterol aerosols every 2 hours as needed -Incentive spirometry while awake CHF/systolic Hyperlipidemia HTN Atrial fibrillation currently rate control AAA/Thoracic aortic aneurysm -Developed A. fib with RVR 01/17/2018. Diltiazem 30 mg 4 times daily initiated.. This is discontinued 01/27 carvedilol 12.5 twice daily. resumed amlodipine at 5 mg daily -Currently rate controlled but remains in A. fib, off IV heparin due to hemorrhagic infarct -Diuresis per nephrology. -2D echo 07/24/17: Estimated EF 45-50%, abnormal LV diastolic function, mild to moderate AR -Currently on atorvastatin 10 mg daily for hyperlipidemia History meatal stenosis BPH Status post recent bilateral ureteroscopy suspicious for recurrent urothelial cancer involving both ureteral orifices. Status post recent right ureteroscopy with laser lithotripsy of distal ureteral calculus Status post bilateral ureteral stent placement Acute kidney injury likely secondary to hypoperfusion/hypotension Noninvasive low-grade papillary urethrothelial carcinoma -Monitor renal function closely. Talbot catheter. Patient's previous indwelling catheter was removed by Dr. Feliciano 01/16/18 -Urology Dr. Feliciano is following -Nephrology Dr. Duarte following for for worsening oliguric renal failure creatinine Monitor for need for hemodialysis -CT of abdomen pelvis on admission showed bilateral ureteral stents are in place and there is mild distention of the collecting systems bilaterally. Continue tamsulosin 0.4 mg daily Progress Note: Quality VTE Deep Vein Thrombosis/Pulmonary Embolism Present on Admission: No
[2018-02-03] MEDS: Escitalopram 10 MG Tablet PO SCH (16:25)
[2018-02-03] MEDS: Collagenase Oint 30 GM Tube TOPICAL SCH (16:26)
--- NOTE | 2018-02-03 16:49 | P.PNNP ---
Subjective Interval history: No new events overnight. Patient with poor appetite. Denies any shortness of breath, chest pain, nausea, or vomiting. VSS and afebrile. <CynthiaKaylen - Last Filed: 02/03/18 16:46> Physical Exam Vital signs: Vital Signs 02/02/18 17:37 02/02/18 20:00 02/03/18 00:00 Temperature 98.2 F 98 F Pulse Rate 73 63 Respiratory Rate 19 17 Blood Pressure 146/67 H 142/82 H Pulse Oximetry 99 97 95 02/03/18 00:30 02/03/18 04:00 02/03/18 08:00 Temperature 97.9 F 97.6 F Pulse Rate 68 71 Respiratory Rate 19 18 Blood Pressure 138/76 128/60 127/59 L Pulse Oximetry 96 98 02/03/18 12:00 Temperature 97.9 F Pulse Rate 60 Respiratory Rate 18 Blood Pressure 123/60 Pulse Oximetry 99 Intake & Output 02/02/18 02/03/18 02/03/18 18:59 06:59 18:59 Intake Total 1240 / 1240 240 / 240 1000 / 1000 Output Total 300 / 300 Balance 940 / 940 240 / 240 1000 / 1000 Weight 82.1 kg Intake: IV 1000 / 1000 1000 / 1000 D5W Inj 1,000 ML @ 42 mls/hr IV 1000 / 1000 1000 / 1000 .CONT .[id number] [facility] Rx#:[id number] Oral 240 / 240 240 / 240 Output: Urine 300 / 300 Other: # Incontinent Voids 1 3 Date of Last Bowel Movement 02/02/18 02/02/18 # Bowel Movements 1 # Incontinent Bowel Movements 3 Narrative: GENERAL: Alert with no obvious signs of distress. SKIN: Warm and dry. NECK: Supple, trachea midline. No JVD CARDIOVASCULAR: Regular rate and rhythm without murmurs, gallops, or rubs. RESPIRATORY: Breath sounds equal bilaterally. No accessory muscle use. GASTROINTESTINAL: Abdomen soft, non-tender, Positive BS MUSCULOSKELETAL: No cyanosis, or edema. BACK: Nontender without obvious deformity. No CVA tenderness. - Urinary Catheter Management Indwelling Urethral Catheter Cath placed during this visit: yes, but has since been removed by the nurse Reason for continuing: Chronic Urinary Retention Insertion date: 01/16/18 Insertion time: 17:30 Removal date: 01/28/18 Removal time: 14:00 <Kaylen Marie - Last Filed: 02/03/18 16:46> Vital signs: Vital Signs 02/03/18 00:00 02/03/18 00:30 02/03/18 04:00 Temperature 98 F 97.9 F Pulse Rate 63 68 Respiratory Rate 17 19 Blood Pressure 142/82 H 138/76 128/60 Pulse Oximetry 95 96 02/03/18 08:00 02/03/18 12:00 02/03/18 16:00 Temperature 97.6 F 97.9 F 97.4 F L Pulse Rate 71 59 L 62 Respiratory Rate Blood Pressure 127/59 L 123/60 140/64 Pulse Oximetry 98 99 95 02/03/18 17:31 Temperature Pulse Rate Respiratory Rate Blood Pressure Pulse Oximetry 99 Intake & Output 02/03/18 02/03/18 02/04/18 06:59 18:59 06:59 Intake Total 240 / 240 1480 / 1480 Output Total 200 / 200 Balance 240 / 240 1280 / 1280 Weight 82.1 kg Intake: IV 1000 / 1000 D5W Inj 1,000 ML @ 42 mls/hr IV 1000 / 1000 .CONT .[id number] [facility] Rx#:[id number] Oral 240 / 240 480 / 480 Output: Urine 200 / 200 Other: # Voids 4 # Incontinent Voids 3 Date of Last Bowel Movement 02/02/18 # Incontinent Bowel Movements 3 - Urinary Catheter Management Indwelling Urethral Catheter Cath placed during this visit: no <Ender Duarte - Last Filed: 02/03/18 21:40> Assessment and Plan - Assessment (1) Acute kidney injury Code(s): N17.9 - Acute kidney failure, unspecified Status: Acute Plan: Patient with Acute kidney injury and Hyperkalemia. Most likely has ATN due to hypotension. Creatinine stable, non oliguric, no new labs today. Maintain I+O. Avoid Nephrotoxins. Will continue to follow electrolytes and fluid status labs ordered for AM (2) Sepsis Code(s): A41.9 - Sepsis, unspecified organism Status: Acute Plan: Blood cultures positive for Pseudomonas on Levaquin (3) Acute UTI Code(s): N39.0 - Urinary tract infection, site not specified Status: Acute Plan: On levaquin for Pseudomonas. (4) Hypernatremia Code(s): E87.0 - Hyperosmolality and hypernatremia Status: Acute Plan: Monitoring. <Kaylen Marie - Last Filed: 02/03/18 16:46> - Assessment (1) Acute kidney injury Code(s): N17.9 - Acute kidney failure, unspecified Status: Acute Plan: Patient seen and examined, agree with above. Creatinine was 1.4, no new labs, will follow BMP in AM. (2) Sepsis Code(s): A41.9 - Sepsis, unspecified organism Status: Acute (3) Acute UTI Code(s): N39.0 - Urinary tract infection, site not specified Status: Acute (4) Hypernatremia Code(s): E87.0 - Hyperosmolality and hypernatremia Status: Acute <Ender Duarte - Last Filed: 02/03/18 21:40>
[2018-02-03] MEDS: Temazepam 15 MG Capsule PO SCH (21:15)
[2018-02-04] MEDS: Artificial Tears Opth Drops 15 ML Bottle EACH EYE SCH ×4 (02:39→23:03)
[2018-02-04] MEDS: Oral Hygiene Kit OROPHARYNG SCH ×4 (02:40→16:27)
[2018-02-04 07:25] LABS: Baso # (Auto) 0.1 th/mm3 (0.0-0.2); Baso % (Auto) 0.8 % (0.0-2.0); Eos # (Auto) 0.4 th/mm3 (0.0-0.4); Eos % (Auto) 4.9 % (0.0-4.0); Hematocrit 30.4 % (39.0-51.0); Hemoglobin 10.1 gm/dL (13.0-17.0); Lymph # (Auto) 1.2 th/mm3 (1.0-4.8); Lymph % (Auto) 16.6 % (9.0-44.0); Mean Corpuscular HGB Conc 33.2 % (32.0-36.0); Mean Corpuscular Hemoglobin 29.2 pg (27.0-34.0); Mean Corpuscular Volume 87.8 fL (80.0-100.0); Mean Platelet Volume 9.1 fL (7.0-11.0); Mono # (Auto) 0.5 th/mm3 (0.0-0.9); Mono % (Auto) 7.7 % (0.0-8.0); Platelet Count 236 th/mm3 (150-450); Red Blood Count 3.46 mil/mm3 (4.50-5.90); Red Cell Distribution Width 14.4 % (11.6-17.2); White Blood Count 7.1 th/mm3 (4.0-11.0)
[2018-02-04 07:42] LABS: Calcium 8.6 mg/dL (8.5-10.1); Carbon Dioxide 25.8 meq/L (21.0-32.0); Potassium 4.3 meq/L (3.5-5.1)
[2018-02-04] MEDS: Insulin NovoLOG Aspart Correctional Sugar Inj SQ SCH ×4 (09:07→22:56)
[2018-02-04] MEDS: Senna/Docusate Sodium 8.6/50 MG Tablet PO SCH ×2 (09:10→22:57)
[2018-02-04] MEDS: Escitalopram 10 MG Tablet PO SCH (09:11)
[2018-02-04] MEDS: Carvedilol 12.5 MG Tablet PO SCH ×2 (09:13→22:55)
[2018-02-04] MEDS: Chlorhexidine 0.12% Oral Kit 15 ML UDC OROPHARYNG SCH ×2 (09:14→22:54)
--- NOTE | 2018-02-04 10:51 | P.PNNP ---
Subjective Interval history: Patient with no acute events overnight. Responds to questions appropriately voice is very quiet. <Kaylen Marie - Last Filed: 02/04/18 14:39> Physical Exam Vital signs: Vital Signs 02/03/18 12:00 02/03/18 16:00 02/03/18 17:31 Temperature 97.9 F 97.4 F L Pulse Rate 59 L 62 Respiratory Rate 18 18 Blood Pressure 123/60 140/64 Pulse Oximetry 99 95 99 02/03/18 20:00 02/04/18 00:00 02/04/18 04:00 Temperature 98.2 F 98.3 F 97.5 F L Pulse Rate 58 L 58 L 55 L Respiratory Rate 18 20 20 Blood Pressure 136/61 124/60 137/58 L Pulse Oximetry 92 L 99 100 02/04/18 08:00 02/04/18 10:10 Temperature 97.6 F Pulse Rate 53 L Respiratory Rate 14 Blood Pressure 143/66 H Pulse Oximetry 99 98 Intake & Output 02/03/18 02/04/18 02/04/18 18:59 06:59 18:59 Intake Total 1480 / 1480 0 / 0 Output Total 200 / 200 150 / 150 Balance 1280 / 1280 -150 / -150 Weight 82 kg Intake: IV 1000 / 1000 D5W Inj 1,000 ML @ 42 mls/hr IV 1000 / 1000 .CONT .[id number] COUNT INCLUDES [facility] Rx#:[id number] Oral 480 / 480 0 / 0 Output: Urine 200 / 200 150 / 150 Other: # Voids 4 5 Date of Last Bowel Movement 02/03/18 # Bowel Movements 1 Narrative: GENERAL: Alert with no obvious signs of distress. SKIN: Warm and dry. NECK: Supple, trachea midline. No JVD CARDIOVASCULAR: Regular rate and rhythm without murmurs, gallops, or rubs. RESPIRATORY: Breath sounds equal bilaterally. No accessory muscle use. GASTROINTESTINAL: Abdomen soft, non-tender, Positive BS MUSCULOSKELETAL: No cyanosis, or edema. BACK: Nontender without obvious deformity. No CVA tenderness. - Urinary Catheter Management Indwelling Urethral Catheter Cath placed during this visit: yes, but has since been removed by the nurse Reason for continuing: Chronic Urinary Retention Insertion date: 01/16/18 Insertion time: 17:30 Removal date: 01/28/18 Removal time: 14:00 <Kaylen Marie - Last Filed: 02/04/18 14:39> Vital signs: Vital Signs 02/04/18 00:00 02/04/18 04:00 02/04/18 08:00 Temperature 98.3 F 97.5 F L 97.6 F Pulse Rate 58 L 55 L 53 L Respiratory Rate 20 20 14 Blood Pressure 124/60 137/58 L 143/66 H Pulse Oximetry 99 100 99 02/04/18 10:10 02/04/18 12:00 02/04/18 16:00 Temperature 98.3 F 97.8 F Pulse Rate 61 61 Respiratory Rate 16 16 Blood Pressure 126/62 135/62 Pulse Oximetry 98 95 97 02/04/18 17:21 02/04/18 20:00 Temperature 98.7 F Pulse Rate 61 Respiratory Rate 18 Blood Pressure 119/56 L Pulse Oximetry 95 97 Intake & Output 02/04/18 02/04/18 02/05/18 06:59 18:59 06:59 Intake Total 0 / 0 480 / 480 0 / 0 Output Total 150 / 150 Balance -150 / -150 480 / 480 0 / 0 Weight 82 kg Intake: IV 0 / 0 D5W Inj 1,000 ML @ 42 mls/hr IV 0 / 0 .CONT .[id number] COUNT INCLUDES [facility] Rx#:[id number] Oral 0 / 0 480 / 480 Output: Urine 150 / 150 Other: # Voids 5 4 Date of Last Bowel Movement 02/03/18 02/02/18 # Bowel Movements 1 - Urinary Catheter Management Indwelling Urethral Catheter Cath placed during this visit: no <Ender Duarte - Last Filed: 02/04/18 22:40> Assessment and Plan - Assessment (1) Acute kidney injury Code(s): N17.9 - Acute kidney failure, unspecified Status: Acute Plan: Patient with Acute kidney injury and Hyperkalemia. Most likely has ATN due to hypotension. Creatinine stable at 1.4, non oliguric. Potassium 1.4. Maintain I+O. Avoid Nephrotoxins. Will continue to follow electrolytes and fluid status. Continue the same. (2) Sepsis Code(s): A41.9 - Sepsis, unspecified organism Status: Acute Plan: Blood cultures positive for Pseudomonas on Levaquin (3) Acute UTI Code(s): N39.0 - Urinary tract infection, site not specified Status: Acute Plan: On levaquin for Pseudomonas. (4) Hypernatremia Code(s): E87.0 - Hyperosmolality and hypernatremia Status: Acute Plan: Monitoring. Resolved. <Kaylen Marie - Last Filed: 02/04/18 14:39> - Assessment (1) Acute kidney injury Code(s): N17.9 - Acute kidney failure, unspecified Status: Acute Plan: Patient seen and examined, agree with above. Creatinine stable at 1.4, Encourage oral intake. (2) Sepsis Code(s): A41.9 - Sepsis, unspecified organism Status: Acute (3) Acute UTI Code(s): N39.0 - Urinary tract infection, site not specified Status: Acute (4) Hypernatremia Code(s): E87.0 - Hyperosmolality and hypernatremia Status: Acute <Ender Duarte - Last Filed: 02/04/18 22:40>
--- NOTE | 2018-02-04 11:03 | P.DIET ---
Nutritional Evaluation Type of nutrition evaluation: follow-up ([facility] consult for wound) Nutrition consult regarding: Tube Feeding Screening comments: Coccyx; unstageable pressure injury Objective - Diagnosis UTI, Dehydration, elevated troponin - Objective [place] body weight: 81 kg % IBW: 108 (IBW: 81kg) Body Weight Used for Calculations: IBW, Actual (82kg ) Energy Needs - Lower Range (kCal/kg): 30 Energy Needs - Upper Range (kCal/kg): 35 Lower Limit kCal/kg (kCals): 2,460 Upper Limit kCal/kg (kCals): 2,879 Lower Limit Protein Factor (Grams per Kg): 1.5 Upper Limit Protein Factor (Grams per Kg): 2 Lower Protein Needs (Protein): 123 Upper Protein Needs (Protein): 164 Dietitian Reviewed in Medical Record: Current diet, Curent medications, Intake & Output, Labs, Medical history Diet Order: Mech soft, 2gNa Speech Therapy Recommendations: Yes (mech soft w/ chopped meat, nectar thick) Wound Care Note: Coccyx; unstageable pressure injury Objective Comments: PMH: bladder cancer, thoracic and abdominal aortic aneurysm, Bronchiectasis, Restrictive lung disease, COPD, CHF, Hyperlipidemia, HTN Labs; (01/31) Cr 1.57 trending down; (02/01) 1.42 LBM 02/02 Skin: pressure ulcers (midline sacrum, L buttocks) Assessment Assessment: 02/04/18 [facility] for wound; Pt seen earlier this week with poor PO intake which remains the same. Pt with new unstageabe wound to coccyx. Energy and protein needs reassessed as they have changed. Recommend Ensure Enlive BID nectar thick to provide 350 kcals and 20g protein to support energy/ protein intake and wound healing. Please continue to assist pt during mealtime. Will continue to monitor clinical course and supplement acceptance. From Previous note; TF FU; Pt is at high nutritional risk r/t dx and current clinical status. Diet order remains as mech soft with chopped meat and nectar thick liquids. Spoke with pt's today who is concerned that the pt is not eating his meals because he is not receiving help and not sitting up right in his chair. Pt's was in the room feeding him at the time and explained that if someone helps him he will eat his meals. Discussed 's concerns with RN who reports that she has offered to help pt eat but he has refused help at times. Will recommend to continue with feeding assistance and PO encouragement. also asked if she could bring in Boost for her and I explained that Boost is not a nectar thick liquid. I offered for the pt to try Ensure pudding as it is thickened and they were agreeable. Will recommend Ensure pudding nutritional supplement TID to provide 170kcal and 4g protein. Will continue to monitor labs, I/O's and PO intake. Recommendations: 1.Continue with current diet per ST 2. Ensure Enlive BID, nectar thick 3. Continue to assist at meal times 4. Monitor supplement acceptance Dietitian to Monitor: Lab values, Renal labs, Intake & Output, Diet tolerance, PO Intake, Swallow recommendations, Medical course
[2018-02-04] MEDS: Collagenase Oint 30 GM Tube TOPICAL SCH (16:28)
--- NOTE | 2018-02-04 17:06 | P.PNIM ---
Subjective Interval history: Pt remains quite weak. Pt intermittently drifting to sleep during bedside family conference. Physical Exam Vital signs: Last Vital Signs Temp 98.3 F 02/04/18 12:00 Pulse 61 02/04/18 12:00 Resp 16 02/04/18 12:00 BP 126/62 02/04/18 12:00 Pulse Ox 95 02/04/18 12:00 Narrative: GENERAL: NAD SKIN: Warm and dry. HEENT: Atraumatic. Normocephalic. Pupils equal and round. No scleral icterus. No injection or drainage. No nasal bleeding or discharge. Mucous membranes pink and moist. NECK: Trachea midline. No JVD. CARDIO: Regular rate and rhythm. RESP: No accessory muscle use. Clear to auscultation. Breath sounds equal bilaterally. ABD: +BS, soft, non-tender, nondistended. Hepatic and splenic margins not palpable. EXT: Extremities without clubbing, cyanosis, or edema. No obvious deformities. NEURO: Awake and alert. No obvious cranial nerve deficits. Motor grossly within normal limits. Five out of 5 muscle strength in the arms and legs. Normal speech. PSYCH: A&Ox3, but diminished insight Results Labs CBC & Chem 7: 02/04/18 04:09 02/04/18 04:09 Assessment and Plan Assessment (1) Acute kidney injury: Code(s): N17.9 - Acute kidney failure, unspecified Status: Acute (2) Sepsis: Code(s): A41.9 - Sepsis, unspecified organism Status: Acute (3) Acute UTI: Code(s): N39.0 - Urinary tract infection, site not specified Status: Acute (4) Hypernatremia: Code(s): E87.0 - Hyperosmolality and hypernatremia Status: Acute Plan - Pt is an 82 y/o male with bladder cancer who recently underwent meatal dilation/bilateral retrograde pyelograms/bladder biopsy with fulguration/ bilateral ureteroscopy with laser ablation of distal ureteral masses/right ureteroscopic stone extraction and bilateral ureteral stent placement with Dr. Feliciano on 01/05/18. . She states that the pt has not been eating or drinking well over the last few weeks and has been somewhat weaker than normal. Then yesterday after the Talbot was removed the pt had difficulty urinating and last night started becoming more nauseated and started vomiting during the night last night. Pts reports that he had similar issues in August 2017 after a previous urological procedure after Talbot removal but was not this bad and was treated for a UTI at that time. 1. Left parieto-occipital hemorrhagic infarct -01/22, CT brain-abnormality left parietal occipital region. 01/23 large 6.1 x 3.9 cm left occipital abnormality, probable hemorrhagic infarct - comgmt with Neurology -Neurosurgery consulted for possible hemorrhagic infarct left parieto- occipital. Recommended repeat CT brain in 2 weeks with contrast if able cannot rule out mass lesion or abscess into continue conservative management. -Altered mental status/encephalopathy secondary to metabolic encephalopathy and severe sepsis and acute stroke -neurology repeated the CT 01/31. left occipital cva with sah within noted. - Case d/w Neurosurgery (02/02/18), Dr. Doshi. - Agreed with small SAH. - agrred with ASA 81mg daily - recommended repeat CT brain in 3-4 weeks. If SAH remains stable on repeat CT brain, then start novel anticoagulant. - BP stable - PT - hypernatremia resolved - pt remains quite weak - met with multiple family members at the bedside (02/04) including pt's , son, grandson, and [id number] - Pt intermittently drifting asleep during meeting. - Pt originally admitted d/t urosepsis - Pt's overall prognosis appears poor at this time. I candidly discussed this with pt, , son, and family - Pt is at high risk for rehospitalization. - I discussed code status with family. DNR would be appropriate. Family will think about this. - Family to research SNFs that contract with [facility] near their home in [place]. - Anticipate d/c to SNF Friday, 02/06 Non-sustained SVT, asymptomatic - continue coreg - 2D echo 07/24/17: Estimated EF 45-50%, abnormal LV diastolic function, mild to moderate AR - observe Bronchiectasis/Restrictive lung disease/COPD, chronically on 2L of supplemental O2 Obstructive sleep apnea on CPAP at night Acute hypoxemic respiratory failure Extubated 01/27. Currently on room air. -Albuterol/ipratropium aerosols every 4 hours with albuterol aerosols every 2 hours as needed -Incentive spirometry while awake CHF/systolic Hyperlipidemia HTN Atrial fibrillation currently rate control AAA/Thoracic aortic aneurysm -Developed A. fib with RVR 01/17/2018. Diltiazem 30 mg 4 times daily initiated.. This is discontinued 01/27 carvedilol 12.5 twice daily. resumed amlodipine at 5 mg daily -Currently rate controlled but remains in A. fib, off IV heparin due to hemorrhagic infarct -Diuresis per nephrology. -2D echo 07/24/17: Estimated EF 45-50%, abnormal LV diastolic function, mild to moderate AR -Currently on atorvastatin 10 mg daily for hyperlipidemia History meatal stenosis BPH Status post recent bilateral ureteroscopy suspicious for recurrent urothelial cancer involving both ureteral orifices. Status post recent right ureteroscopy with laser lithotripsy of distal ureteral calculus Status post bilateral ureteral stent placement Acute kidney injury likely secondary to hypoperfusion/hypotension Noninvasive low-grade papillary urethrothelial carcinoma -Monitor renal function closely. Talbot catheter. Patient's previous indwelling catheter was removed by Dr. Feliciano 01/16/18 -Urology Dr. Feliciano is following -Nephrology Dr. Duarte following for for worsening oliguric renal failure creatinine Monitor for need for hemodialysis -CT of abdomen pelvis on admission showed bilateral ureteral stents are in place and there is mild distention of the collecting systems bilaterally. Continue tamsulosin 0.4 mg daily Progress Note: Quality VTE Deep Vein Thrombosis/Pulmonary Embolism Present on Admission: No _ (1) Sepsis Qualifiers: Sepsis type:
[2018-02-04] MEDS: Dextrose 5% in Water Inj 1,000 ML IV.CONT SCH (17:39)
[2018-02-04] MEDS: Temazepam 15 MG Capsule PO SCH (22:55)
[2018-02-05] MEDS: Oral Hygiene Kit OROPHARYNG SCH ×3 (05:46→16:48)
[2018-02-05] MEDS: Artificial Tears Opth Drops 15 ML Bottle EACH EYE SCH ×3 (06:15→22:21)
[2018-02-05] MEDS: Insulin NovoLOG Aspart Correctional Sugar Inj SQ SCH ×2 (08:11→11:38)
[2018-02-05] MEDS: Chlorhexidine 0.12% Oral Kit 15 ML UDC OROPHARYNG SCH ×2 (08:11→21:33)
--- NOTE | 2018-02-05 09:21 | P.PNNEU ---
Subjective Active Medications: Active Medications Acetaminophen (Tylenol) 650 mg PO Q6H PRN PRN Reason: Temp > 100.4 Albuterol (Albuterol Neb (Prn)) 2.5 mg NEB Q2HR NEB PRN PRN Reason: DYSPNEA Last Admin: 01/29/18 11:27 Dose: 2.5 mg Artificial Tears (Tears Naturale Opth Drops) 1 drop EACH EYE Q8H [facility] Last Admin: 02/05/18 06:15 Dose: Not Given Aspirin (Aspirin Chew) 81 mg PO DAILY [facility] Last Admin: 02/04/18 09:13 Dose: 81 mg Atorvastatin Calcium (Lipitor) 10 mg PO DAILY [facility] Last Admin: 02/04/18 09:13 Dose: 10 mg Bisacodyl (Dulcolax Supp) 10 mg RECTAL DAILY PRN PRN Reason: SEVERE CONSITIPATION Carvedilol (Coreg) 12.5 mg PO BID [facility] Last Admin: 02/04/18 22:55 Dose: 12.5 mg Chlorhexidine Gluconate (Peridex 0.12% Oral Kit) 15 ml OROPHARYNG BID@0800, 2000 [facility] Last Admin: 02/05/18 08:11 Dose: Not Given Collagenase (Santyl Oint) 1 applicatio TOPICAL DAILY [facility] Last Admin: 02/04/18 16:28 Dose: 1 applicatio Dextrose (D50w Vial) 50 ml IV.PUSH UNSCH PRN PRN Reason: PER HYPOGLYCEMIA PROTOCOL Escitalopram Oxalate (Lexapro) 10 mg PO DAILY [facility] Last Admin: 01/16/18 09:18 Dose: 10 mg Escitalopram Oxalate (Lexapro) 10 mg PO DAILY [facility] Last Admin: 02/04/18 09:11 Dose: 10 mg Gabapentin (Neurontin) 300 mg PO BID [facility] Last Admin: 01/16/18 09:19 Dose: 300 mg Glucagon (Glucagon Inj) 1 mg OTHER PRN PRN PRN Reason: for Hypoglycemia Protocol Insulin Aspart (Novolog Insulin Correctional Sugar Inj) 0 unit SQ ACHS [facility]; Protocol Last Admin: 02/05/18 08:11 Dose: Not Given Lactulose (Lactulose Liq) 30 ml PO DAILY PRN PRN Reason: SEVERE CONSITIPATION Lansoprazole (Prevacid Solutab) 30 mg NG/OG DAILY [facility] Last Admin: 02/04/18 09:14 Dose: 30 mg Levofloxacin (Levaquin) 500 mg PO Q48H [facility] Last Admin: 02/03/18 14:02 Dose: 500 mg Miscellaneous Medication () 1 each OROPHARYNG 0000,0400,1200,1600 [facility] Last Admin: 02/05/18 05:46 Dose: Not Given Nifedipine (Procardia Xl) 30 mg PO BID [facility] Last Admin: 02/04/18 22:55 Dose: 30 mg Ondansetron HCl (Zofran Inj) 4 mg IV.PUSH Q6H PRN PRN Reason: NAUSEA OR VOMITING Senna/Docusate Sodium (Bel-Colace) 1 tab PO BID [facility] Last Admin: 02/04/18 22:57 Dose: Not Given Sennosides (Senokot) 17.2 mg PO Q12H PRN PRN Reason: Moderate Constipation Sodium Chloride (Ns Flush) 2 ml IV.FLUSH BID [facility] Last Admin: 02/04/18 22:56 Dose: 2 ml Sodium Chloride (Ns Flush) 2 ml IV.FLUSH PRN PRN PRN Reason: FLUSH AFTER USING IV ACCESS Last Admin: 01/31/18 08:44 Dose: 2 ml Tamsulosin HCl (Flomax) 0.4 [address] [facility] Last Admin: 02/04/18 22:56 Dose: 0.4 mg Temazepam (Restoril) [address] [facility] Last Admin: 02/04/18 22:55 Dose: 15 mg Allergies/Adverse Reactions: Allergies Allergy/AdvReac Type Severity Reaction Status Date / Time No Known Allergies Allergy Verified 01/02/18 12:33 Physical Exam Vital signs: Vital Signs 02/04/18 10:10 02/04/18 12:00 02/04/18 16:00 Temperature 98.3 F 97.8 F Pulse Rate 61 61 Respiratory Rate 16 16 Blood Pressure 126/62 135/62 Pulse Oximetry 98 95 97 02/04/18 17:21 02/04/18 20:00 02/05/18 00:00 Temperature 98.7 F 98.1 F Pulse Rate 61 61 Respiratory Rate 18 18 Blood Pressure 119/56 L 134/62 Pulse Oximetry 95 97 99 02/05/18 04:00 Temperature 97.9 F Pulse Rate 60 Respiratory Rate 18 Blood Pressure 133/59 L Pulse Oximetry 66 L Intake & Output 12/19/18 12/20/18 12/20/18 18:59 06:59 18:59 Intake Total 480 / 480 0 / 0 Output Total 150 / 150 Balance 480 / 480 -150 / -150 Weight 81.7 kg Intake: IV 0 / 0 D5W Inj 1,000 ML @ 42 mls/hr IV 0 / 0 .CONT .[id number] [facility] Rx#:[id number] Oral 480 / 480 Output: Urine 150 / 150 Other: # Voids 4 5 Date of Last Bowel Movement 02/02/18 02/05/18 # Bowel Movements 1 Narrative: awake alert vff 5/5 t/o - Urinary Catheter Management Indwelling Urethral Catheter Cath placed during this visit: yes, but has since been removed by the nurse Reason for continuing: Chronic Urinary Retention Insertion date: 01/16/18 Insertion time: 17:30 Removal date: 01/28/18 Removal time: 14:00 Objective Laboratory Results - last 24 hr 02/04/18 02/04/18 02/04/18 11:49 17:37 22:55 POC Glucose 109 128 H 97 02/05/18 02/05/18 05:36 08:10 POC Glucose 100 100 Review/Management - Review/Management Plan: imp labs ok looks better fu echo and ct pacemaker sepsis likley left occipital cva some hemorrhagic component vs abcess less likley 01/23/18 he was more interactive yesterday bun 107 creat a bit better continue to hold sedatives echo and eeg neg check us carotid repeat ct no change this is likely hemorrhagic infarct afib a large abcess could be considered and i will have estela weigh in my hope is he will awaken off sedatives as he metabolic condition improves i will be out of town call dr davis over weekend if ? o/w i will fu friday ------- 01/26/18 us left some mod dz check ldl estela note seen prob hemorrhagic infarct recheck ct 10 days as dw med team i would have estela weigh in on if they think he could be anticoagulated or not ie bleeding risk asa 81 for now much better may be aphasic hard to say 01/28/18 ldl nl looks well and nonfocal now i would ask estela if they think we can start anticoag 01/31/18 looks well neurowise and await nutanya to weigh in on anticoag timing afib cva vs abcess recheck ct 02/01/18 i dw rads they thought the left occipital area abn looks a little smaller has sign blood in it she considered tumor will have to fu another ct in 2 weeks personally i would like it to look a bit better than it does so cause is still up in air cva vs abcess vs tumor i would have estela weigh in on it again please 02/05/18 stable neuro we need to fu ct in 2 weeks for this left occ lobe abn oob
[2018-02-05] MEDS: Escitalopram 10 MG Tablet PO SCH (09:45)
[2018-02-05] MEDS: Carvedilol 12.5 MG Tablet PO SCH ×2 (09:45→21:34)
[2018-02-05] MEDS: Senna/Docusate Sodium 8.6/50 MG Tablet PO SCH ×2 (09:46→21:34)
[2018-02-05] MEDS: Collagenase Oint 30 GM Tube TOPICAL SCH (09:50)
[2018-02-05] MEDS: levoFLOXacin 500 MG Tablet PO SCH (13:00)
--- NOTE | 2018-02-05 18:04 | P.PNIM ---
Subjective Interval history: Pt remains weak. Poor PO intake. Physical Exam Vital signs: Last Vital Signs Temp 98.5 F 02/05/18 12:00 Pulse 61 02/05/18 12:00 Resp 14 02/05/18 12:00 BP 112/56 L 02/05/18 12:00 Pulse Ox 97 02/05/18 12:00 Narrative: GENERAL: NAD SKIN: Warm and dry. HEENT: Atraumatic. Normocephalic. Pupils equal and round. No scleral icterus. No injection or drainage. No nasal bleeding or discharge. Mucous membranes pink and moist. NECK: Trachea midline. No JVD. CARDIO: Regular rate and rhythm. RESP: No accessory muscle use. Clear to auscultation. Breath sounds equal bilaterally. ABD: +BS, soft, non-tender, nondistended. Hepatic and splenic margins not palpable. EXT: Extremities without clubbing, cyanosis, or edema. No obvious deformities. NEURO: Awake and alert. No obvious cranial nerve deficits. Motor grossly within normal limits. Five out of 5 muscle strength in the arms and legs. Normal speech. PSYCH: A&Ox3, but diminished insight Results Labs CBC & Chem 7: 02/04/18 04:09 02/04/18 04:09 Assessment and Plan Assessment (1) Acute kidney injury: Code(s): N17.9 - Acute kidney failure, unspecified Status: Acute (2) Sepsis: Code(s): A41.9 - Sepsis, unspecified organism Status: Acute (3) Acute UTI: Code(s): N39.0 - Urinary tract infection, site not specified Status: Acute (4) Hypernatremia: Code(s): E87.0 - Hyperosmolality and hypernatremia Status: Acute Plan - Pt is an 82 y/o male with bladder cancer who recently underwent meatal dilation/bilateral retrograde pyelograms/bladder biopsy with fulguration/ bilateral ureteroscopy with laser ablation of distal ureteral masses/right ureteroscopic stone extraction and bilateral ureteral stent placement with Dr. Feliciano on 01/05/18. . She states that the pt has not been eating or drinking well over the last few weeks and has been somewhat weaker than normal. Then yesterday after the Talbot was removed the pt had difficulty urinating and last night started becoming more nauseated and started vomiting during the night last night. Pts reports that he had similar issues in August 2017 after a previous urological procedure after Talbot removal but was not this bad and was treated for a UTI at that time. 1. Left parieto-occipital hemorrhagic infarct -01/22, CT brain-abnormality left parietal occipital region. 01/23 large 6.1 x 3.9 cm left occipital abnormality, probable hemorrhagic infarct - comgmt with Neurology -Neurosurgery consulted for possible hemorrhagic infarct left parieto- occipital. Recommended repeat CT brain in 2 weeks with contrast if able cannot rule out mass lesion or abscess into continue conservative management. - Altered mental status/encephalopathy secondary to metabolic encephalopathy and severe sepsis and acute stroke - neurology repeated the CT 01/31. left occipital cva with sah within noted. - Case d/w Neurosurgery (02/02/18), Dr. Doshi. - Agreed with small SAH. - ageed with ASA 81mg daily - recommended repeat CT brain in 3-4 weeks. If SAH remains stable on repeat CT brain, then start novel anticoagulant. - BP stable - PT - hypernatremia resolved - pt remains quite weak - met with multiple family members at the bedside (02/04) including pt's , son, grandson, and [id number] - Pt intermittently drifting asleep during meeting. - Pt originally admitted d/t urosepsis - Appreciate input from Palliative Medicine Shivani Souza. - Again met with family (02/05) - Pt/family elects for Home Hospice - see discharge orders Non-sustained SVT, asymptomatic - continue coreg - 2D echo 07/24/17: Estimated EF 45-50%, abnormal LV diastolic function, mild to moderate AR - observe Bronchiectasis/Restrictive lung disease/COPD, chronically on 2L of supplemental O2 Obstructive sleep apnea on CPAP at night Acute hypoxemic respiratory failure Extubated 01/27. Currently on room air. -Albuterol/ipratropium aerosols every 4 hours with albuterol aerosols every 2 hours as needed -Incentive spirometry while awake CHF/systolic Hyperlipidemia HTN Atrial fibrillation currently rate control AAA/Thoracic aortic aneurysm -Developed A. fib with RVR 01/17/2018. Diltiazem 30 mg 4 times daily initiated.. This is discontinued 01/27 carvedilol 12.5 twice daily. resumed amlodipine at 5 mg daily -Currently rate controlled but remains in A. fib, off IV heparin due to hemorrhagic infarct -Diuresis per nephrology. -2D echo 07/24/17: Estimated EF 45-50%, abnormal LV diastolic function, mild to moderate AR -Currently on atorvastatin 10 mg daily for hyperlipidemia History meatal stenosis BPH Status post recent bilateral ureteroscopy suspicious for recurrent urothelial cancer involving both ureteral orifices. Status post recent right ureteroscopy with laser lithotripsy of distal ureteral calculus Status post bilateral ureteral stent placement Acute kidney injury likely secondary to hypoperfusion/hypotension Noninvasive low-grade papillary urethrothelial carcinoma -Monitor renal function closely. Talbot catheter. Patient's previous indwelling catheter was removed by Dr. Feliciano 01/16/18 -Urology Dr. Feliciano is following -Nephrology Dr. Duarte following for for worsening oliguric renal failure creatinine Monitor for need for hemodialysis -CT of abdomen pelvis on admission showed bilateral ureteral stents are in place and there is mild distention of the collecting systems bilaterally. Continue tamsulosin 0.4 mg daily Progress Note: Quality VTE Deep Vein Thrombosis/Pulmonary Embolism Present on Admission: No _ (1) Sepsis Qualifiers: Sepsis type:
--- NOTE | 2018-02-05 19:12 | P.PNPAL ---
Reason for Visit Reason for visit: a. To assist with evaluation and management of symptoms including: Encephalopathy, pain, dyspnea b. To assist medical decision maker(s) with: better understanding of current medical conditions; weighing benefits/burdens of medical treatment options; making medical treatment decisions. Subjective Subjective/Interval History: Pt seen today to follow up on comfort, goals. CBC unremarkable. BUN creatinine stable, improved 30/1.42. Eating 25-50% meals. Requiring max assist w PT efforts, bed to chair with max assist. Too lethargic for repeat ST eval earlier today. CM working on d/c planning w family. Evaluated by family Cayden considering placement at [facility]. D/w medical attending, hospice was also discussed, though they were leaning towards continued rehab efforts. met with patient and family at length, primarily family as pt asks us to talk out of the room. Explore with them prolonged hospital course, current debilitated status, and possible trajectory. Review rehab vs hospice. Review current diagnosis, PT/ST efforts,and SNF rehab. Explore that pt remains very high risk for continued weakness , debility, resp complications, infection complications etc. Explore very unlikely pt will resume prior independent status , and remain dependent for care. Explore hospice role, philosophy, services offered, not offered. Son tells me that earlier today that pt told him "I want to go home to with dignity ". Family feels patient is tired and does not want to participate. When attempting to involve pt, he endorses feeling "ok" today. No dyspnea. Pain to buttocks. Wants to go home. Defers more involved conversation to his family. Some aphasia/delay in replies. Family requests to re order hospice consult, they would like to meet tomorrow morning, possibley for a d/c home Friday with hospice services. They understand pt with limited life expectancy, and endorse they want to honor his wishes. --Discussed at length with medical attending, notified cue selector. Planned for meeting sometime Fri with Hospice. Advance Directives Living Will: Never completed Health Care Surrogate: Never completed Durable Power of Special Event Assistant: Never completed Health Care Surrogate Name and Number: HCP: Lanie Cheung, : [phone] Objective Vital Signs: Vital Signs 02/04/18 20:00 02/05/18 00:00 02/05/18 04:00 Temperature 98.7 F 98.1 F 97.9 F Pulse Rate 61 61 60 Respiratory Rate 18 18 18 Blood Pressure 119/56 L 134/62 133/59 L Pulse Oximetry 97 99 66 L 02/05/18 08:00 02/05/18 12:00 Temperature 98 F 98.5 F Pulse Rate 60 61 Respiratory Rate 14 14 Blood Pressure 140/60 112/56 L Pulse Oximetry 100 97 Intake & Output 02/05/18 02/05/18 02/06/18 06:59 18:59 06:59 Intake Total 0 / 0 0 / 0 Output Total 150 / 150 Balance -150 / -150 0 / 0 Weight 81.7 kg Intake: IV 0 / 0 D5W Inj 1,000 ML @ 42 mls/hr IV 0 / 0 .CONT .[id number] [facility] Rx#:[id number] Other 0 / 0 Output: Urine 150 / 150 Other: # Voids 5 Date of Last Bowel Movement 02/05/18 02/05/18 # Bowel Movements 1 Physical Exam: CONSTITUTIONAL/GENERAL: This is an adequately nourished patient, flat TUBES/LINES/DRAINS: left pacemaker, PIVs, NC SKIN: No jaundice, rashes, or lesions. No wounds seen anteriorly-reported few centimeter sacral wound which wound care is following.. Skin warm and dry. EYES: pupils equal and reactive. CARDIOVASCULAR: HR regular. no murmur. pedal pulses are faint. bilateral feet warm RESPIRATORY/CHEST: Symmetric, unlabored respirations on NC 2L. Shallow respiratory effort. Clear, Breath sounds equal bilaterally. GASTROINTESTINAL: Abdomen soft, nontender, nondistended. Bowel sounds present. GENITOURINARY: Without palpable bladder distension. MUSCULOSKELETAL: Extremities without clubbing, cyanosis, or edema. No mottling or clubbing. NEUROLOGICAL: alert and oriented. Some delay in replying to questions, some aphasia. Defers to family for more in depth conversation. soft, weak voice. He follows commands Moves all 4 extremities weakly. PSYCHIATRIC: flat Diagnostic Tests Laboratory: Laboratory Results - last 72 hr 02/02/18 02/03/18 02/03/18 20:05 05:40 08:02 WBC RBC Hgb Hct MCV MCH MCHC RDW Plt Count MPV Neut % (Auto) Lymph % (Auto) [place] % (Auto) Eos % (Auto) Baso % (Auto) Neut # (Auto) Lymph # (Auto) [place] # (Auto) Eos # (Auto) Baso # (Auto) WBC Differential Differential Comment Sodium Potassium Chloride Carbon Dioxide Anion Gap BUN Creatinine Estimated GFR POC Glucose 95 110 100 Random Glucose Calcium 02/03/18 02/03/18 02/03/18 12:16 17:20 19:59 WBC RBC Hgb Hct MCV MCH MCHC RDW Plt Count MPV Neut % (Auto) Lymph % (Auto) [place] % (Auto) Eos % (Auto) Baso % (Auto) Neut # (Auto) Lymph # (Auto) [place] # (Auto) Eos # (Auto) Baso # (Auto) WBC Differential Differential Comment Sodium Potassium Chloride Carbon Dioxide Anion Gap BUN Creatinine Estimated GFR POC Glucose 131 H 168 H 97 Random Glucose Calcium 02/04/18 02/04/18 02/04/18 03:21 04:09 04:09 WBC 7.1 RBC 3.46 L Hgb 10.1 L Hct 30.4 L MCV 87.8 MCH 29.2 MCHC 33.2 RDW 14.4 Plt Count 236 MPV 9.1 Neut % (Auto) 70.0 Lymph % (Auto) 16.6 [place] % (Auto) 7.7 Eos % (Auto) 4.9 H Baso % (Auto) 0.8 Neut # (Auto) 5.0 Lymph # (Auto) 1.2 [place] # (Auto) 0.5 Eos # (Auto) 0.4 Baso # (Auto) 0.1 WBC Differential . Differential Comment Auto diff final Sodium 144 Potassium 4.3 Chloride 112 H Carbon Dioxide 25.8 Anion Gap 6 BUN 30 H Creatinine 1.42 H Estimated GFR 47 L POC Glucose 94 Random Glucose 89 Calcium 8.6 02/04/18 02/04/18 02/04/18 07:49 11:49 17:37 WBC RBC Hgb Hct MCV MCH MCHC RDW Plt Count MPV Neut % (Auto) Lymph % (Auto) [place] % (Auto) Eos % (Auto) Baso % (Auto) Neut # (Auto) Lymph # (Auto) [place] # (Auto) Eos # (Auto) Baso # (Auto) WBC Differential Differential Comment Sodium Potassium Chloride Carbon Dioxide Anion Gap BUN Creatinine Estimated GFR POC Glucose 98 109 128 H Random Glucose Calcium 02/04/18 02/05/18 02/05/18 22:55 05:36 08:10 WBC RBC Hgb Hct MCV MCH MCHC RDW Plt Count MPV Neut % (Auto) Lymph % (Auto) [place] % (Auto) Eos % (Auto) Baso % (Auto) Neut # (Auto) Lymph # (Auto) [place] # (Auto) Eos # (Auto) Baso # (Auto) WBC Differential Differential Comment Sodium Potassium Chloride Carbon Dioxide Anion Gap BUN Creatinine Estimated GFR POC Glucose 97 100 100 Random Glucose Calcium 02/05/18 02/05/18 11:37 17:06 WBC RBC Hgb Hct MCV MCH MCHC RDW Plt Count MPV Neut % (Auto) Lymph % (Auto) [place] % (Auto) Eos % (Auto) Baso % (Auto) Neut # (Auto) Lymph # (Auto) [place] # (Auto) Eos # (Auto) Baso # (Auto) WBC Differential Differential Comment Sodium Potassium Chloride Carbon Dioxide Anion Gap BUN Creatinine Estimated GFR POC Glucose 115 H 112 H Random Glucose Calcium Result Diagrams: 02/04/18 04:09 02/04/18 04:09 Imaging: Chest X-Ray 01/28/18 06:00 CONCLUSION: Endotracheal tube and nasogastric tube no longer seen. Lung volumes are low and there is chronic cardiac silhouette enlargement. No acute cardiopulmonary disease identified. Head CT 01/31/18 00:00 CONCLUSION: 1. Interval development of what appears to be subarachnoid hemorrhage within left occipital lobe infarction without any significant mass effect. Procedures: 01/16 central line right IJ 01/16 intubated-- 01/28 medically extubated Assessment and Plan - Disease Oriented Problem List (1) Bladder tumor (2) Meatal stenosis (3) History of bladder cancer (4) Acute UTI (5) Acute kidney injury (6) Sepsis (7) Respiratory failure Pertinent Non-Medical Issues: Psychosocial: Born and raised in [place]. 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 Supported by , children, grandchildren as well as close friends. 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 Per [place] statutes his would be appropriate legal proxy. Palliative care will attempt to assist with completion of written advanced directives in coming days now that patient is off vent and encephalopathy is improving. Ethical issues impacting care: No ethical issues identified. Important Contacts: Lanie Cheung [phone], cell [phone] Prognosis: This patient was initially admitted with generalized symptoms of nausea, weakness but overall not feeling well. During hospital course has had worsening sepsis, multiorgan failure. He has recent diagnoses of bladder cancer. Given advanced age, Multiorgan issues, high risk for ongoing complications and setbacks. Code Status: Full Code Plan: Patient was extubated 01/28/18, will follow to determine patient's ability to make his own medical decisions in the coming days. Per [place] statutes his would be appropriate legal proxy. Pt s/p medical extubation, however with some aphasia, lethargy, not able to fully make own decisions. , supported by family making decisions. Goals: Extensive discussion with family today, limited discussion with patient. Goals are to transition home with hospice for support. Patient verbalized to the family "I just want to go home to ". Hospice already consulted, I updated them, they will plan for meeting Friday morning 02/06/18 to complete enrollment, discharge planning process. Possible may be able to get home with hospice support if all the necessary arrangements can be made tomorrow. CODE STATUS:full code - will need to readdress upon hospice enrollment, family has indicated pt would NOT want to return to hospital for intubation, other aggressive tx. SYMPTOMS: --Dyspnea Extubated 01/28/18. s/p CVA,now on NC 2L. Ongoing risk for aspiration, pneumonia 2/2 to immobile, poor nutritional status. On modified diet. Hx COPD. Most recent CXR stable/no acute process. --Dysphagia- potential r/t CVA ; 01/[address] evaluation [facility] soft diet and nectar thick liquids. Mold Chipper has also recommended ENSURE pudding TID, family bringing some foods in from home, instructed all need to be thickened. -- malnutrition- poor appetite, poor intake since extubation, 0-25% of meals. Would be high risk for aspiration if feeding tube pursued. Pt denies n/v or GI complaints. not ideal candidate for megace 2/2 thromboembolic risk. --Encephalopathy-multifactorial, metabolic. prev. with Multiorgan failure, now stabilized. . High risk for future CVA. Slight improvement overall since ICU course, though not progressing with rehab. Family hopeful patient will continue to improve. As pt becomes more alert, may to be able to participate in goals of medical treatment. --Pain-+ sacral pain 2/2 breakdown, debilitated primarily bedbound. Other potential sources would include bedbound status, recent invasive procedures, including cystoscopy. indicates he has not had any c/o pain pre hospitalization. currently has Tylenol available. prev. on Gabapentin which is on hold. While pain control may help pt feel better and ideally participate more, concern that stronger pain medication w opiate will contribute to lethargy and decrease ability to participate in rehab efforts. -Depression/failing to thrive-multifactorial. Patient previously independent , working in the [employer] business. Prolonged hospitalization- Suffered significant CVA event. Prolonged ICU course. Flat affect, minimally verbal. lexapro has been resumed. Palliative care will continue to follow during hospital course as condition evolves, to assist patient/decision-maker with understanding of medical conditions, weighing benefits/burdens of treatment options, for clarification of goals of treatment. Additionally will assist with any symptoms of palliative concern Time Spent Total Floor Time (mins): 65 (chart review, lengthy discussion w family, w medical attending, and cue selector ) Attestation Attestation: To help prompt me to consider important information that might be impacting today's encounter and assessment, information from prior notes written by myself or my colleagues may have been "brought forward" into today's note. My signature on this note, however, is an attestation that I personally performed the exam, history, and/or decision-making noted today, and, unless otherwise indicated, the interactions with patient, family, and staff as well as the review of records all occurred today. I also attest that the listed assessment and stated plan reflect my best clinical judgment today based on the combination of historical information, prior notes, and today's exam/ interactions. When time spent is documented, it refers only to time spent today by the signer, or if indicated, combined time spent today by collaborating physician/nurse practitioner.
[2018-02-05 21:31] VITALS: RESP 18
[2018-02-05] MEDS: Temazepam 15 MG Capsule PO SCH (21:34)
[2018-02-06] MEDS: Oral Hygiene Kit OROPHARYNG SCH ×3 (01:15→11:52)
[2018-02-06] MEDS: Artificial Tears Opth Drops 15 ML Bottle EACH EYE SCH ×3 (05:59→16:42)
[2018-02-06] MEDS: Chlorhexidine 0.12% Oral Kit 15 ML UDC OROPHARYNG SCH (10:11)
[2018-02-06] MEDS: Escitalopram 10 MG Tablet PO SCH (10:17)
[2018-02-06] MEDS: Senna/Docusate Sodium 8.6/50 MG Tablet PO SCH (10:17)
[2018-02-06] MEDS: Carvedilol 12.5 MG Tablet PO SCH (10:17)
[2018-02-06] MEDS: Collagenase Oint 30 GM Tube TOPICAL SCH (10:18)
--- NOTE | 2018-02-06 11:30 | P.PNPAL ---
Reason for Visit Reason for visit: a. To assist with evaluation and management of symptoms including: Encephalopathy, pain, dyspnea b. To assist medical decision maker(s) with: better understanding of current medical conditions; weighing benefits/burdens of medical treatment options; making medical treatment decisions. Subjective Subjective/Interval History: Pt seen today to follow up on comfort,possible transition to hospice today. Stable overnight. met with pt, family at length last evening regarding goals, planned for hospice meeting this am, and home with hospice today if arrangements can be made. Pt seen in room , son at bedside. He appears relaxed, peaceful, holding his 's hand. He indicates he is ready to go home today. , son endorse they are awaiting hospice case manager arrival for meeting now. Review with them services provided, DME etc. The express understanding. Pt eager to get home for the holidays, he smiles some today, more engaged than I have seen him before. He denies dyspnea, pain currently. Review will add PRN for anxiety and pain x1 to be available before transport home, if he wants to use. All questions answered. They express gratitude for palliative and other hospital providers. Advance Directives Living Will: Never completed Health Care Surrogate: Never completed Durable Power of Paint Factory Worker: Never completed Health Care Surrogate Name and Number: HCP: Lanie Cheung, : Objective Vital Signs: Vital Signs 02/05/18 12:00 02/05/18 16:00 02/05/18 20:00 Temperature 98.5 F 98.5 F 98.3 F Pulse Rate 61 60 71 Respiratory Rate 14 16 18 Blood Pressure 112/56 L 122/57 L 119/56 L Pulse Oximetry 97 98 95 02/05/18 23:53 02/06/18 04:00 02/06/18 08:00 Temperature 98.1 F 98 F 97.8 F Pulse Rate 61 57 L 61 Respiratory Rate 18 18 18 Blood Pressure 122/69 141/63 H 154/69 H Pulse Oximetry 100 98 98 Intake & Output 02/05/18 02/06/18 02/06/18 18:59 06:59 18:59 Intake Total 720 / 720 360 / 360 Balance 720 / 720 360 / 360 Weight 82.1 kg Intake: Oral 720 / 720 360 / 360 Other 0 / 0 Other: # Voids 4 # Urine Diapers 5 Date of Last Bowel Movement 02/05/18 02/05/18 # Bowel Movements 2 0 Physical Exam: CONSTITUTIONAL/GENERAL: This is an adequately nourished patient, alert TUBES/LINES/DRAINS: left pacemaker, PIVs, NC SKIN: slightly sallow coloration. No rashes, or lesions. No wounds seen anteriorly-reported few centimeter sacral wound which wound care is following.. Skin warm and dry. EYES: pupils equal and reactive. RESPIRATORY/CHEST: Symmetric, unlabored respirations on room air. NEUROLOGICAL: alert and oriented. Some delay in replying to questions, some aphasia. Voice very soft. smiles, cooperative. He follows commands Moves all 4 extremities weakly. PSYCHIATRIC: no obvious depression/anxiety Diagnostic Tests Laboratory: Laboratory Results - last 72 hr 02/03/18 02/03/18 02/03/18 12:16 17:20 19:59 WBC RBC Hgb Hct MCV MCH MCHC RDW Plt Count MPV Neut % (Auto) Lymph % (Auto) Divide % (Auto) Eos % (Auto) Baso % (Auto) Neut # (Auto) Lymph # (Auto) Divide # (Auto) Eos # (Auto) Baso # (Auto) WBC Differential Differential Comment Sodium Potassium Chloride Carbon Dioxide Anion Gap BUN Creatinine Estimated GFR POC Glucose 131 H 168 H 97 Random Glucose Calcium 02/04/18 02/04/18 02/04/18 03:21 04:09 04:09 WBC 7.1 RBC 3.46 L Hgb 10.1 L Hct 30.4 L MCV 87.8 MCH 29.2 MCHC 33.2 RDW 14.4 Plt Count 236 MPV 9.1 Neut % (Auto) 70.0 Lymph % (Auto) 16.6 Divide % (Auto) 7.7 Eos % (Auto) 4.9 H Baso % (Auto) 0.8 Neut # (Auto) 5.0 Lymph # (Auto) 1.2 Divide # (Auto) 0.5 Eos # (Auto) 0.4 Baso # (Auto) 0.1 WBC Differential . Differential Comment Auto diff final Sodium 144 Potassium 4.3 Chloride 112 H Carbon Dioxide 25.8 Anion Gap 6 BUN 30 H Creatinine 1.42 H Estimated GFR 47 L POC Glucose 94 Random Glucose 89 Calcium 8.6 02/04/18 02/04/18 02/04/18 07:49 11:49 17:37 WBC RBC Hgb Hct MCV MCH MCHC RDW Plt Count MPV Neut % (Auto) Lymph % (Auto) Divide % (Auto) Eos % (Auto) Baso % (Auto) Neut # (Auto) Lymph # (Auto) Divide # (Auto) Eos # (Auto) Baso # (Auto) WBC Differential Differential Comment Sodium Potassium Chloride Carbon Dioxide Anion Gap BUN Creatinine Estimated GFR POC Glucose 98 109 128 H Random Glucose Calcium 02/04/18 02/05/18 02/05/18 22:55 05:36 08:10 WBC RBC Hgb Hct MCV MCH MCHC RDW Plt Count MPV Neut % (Auto) Lymph % (Auto) Divide % (Auto) Eos % (Auto) Baso % (Auto) Neut # (Auto) Lymph # (Auto) Divide # (Auto) Eos # (Auto) Baso # (Auto) WBC Differential Differential Comment Sodium Potassium Chloride Carbon Dioxide Anion Gap BUN Creatinine Estimated GFR POC Glucose 97 100 100 Random Glucose Calcium 02/05/18 02/05/18 11:37 17:06 WBC RBC Hgb Hct MCV MCH MCHC RDW Plt Count MPV Neut % (Auto) Lymph % (Auto) Divide % (Auto) Eos % (Auto) Baso % (Auto) Neut # (Auto) Lymph # (Auto) Divide # (Auto) Eos # (Auto) Baso # (Auto) WBC Differential Differential Comment Sodium Potassium Chloride Carbon Dioxide Anion Gap BUN Creatinine Estimated GFR POC Glucose 115 H 112 H Random Glucose Calcium Result Diagrams: 02/04/18 04:09 02/04/18 04:09 Procedures: 01/16 central line right IJ 01/16 intubated-- 01/28 medically extubated Assessment and Plan - Disease Oriented Problem List (1) Bladder tumor (2) Meatal stenosis (3) History of bladder cancer (4) Acute UTI (5) Acute kidney injury (6) Sepsis (7) Respiratory failure Pertinent Non-Medical Issues: Psychosocial: Born and raised in [place]. 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 Supported by , children, grandchildren as well as close friends. Spiritual: Zoroastrian eli, client service administrator has been in Legal: Patient was extubated 01/28/18, will follow to determine patient's ability to make his own medical decisions in the coming days. Per [place] statutes his would be appropriate legal proxy. Palliative care will attempt to assist with completion of written advanced directives in coming days now that patient is off vent and encephalopathy is improving. Ethical issues impacting care: No ethical issues identified. Important Contacts: Lanie Cheung [phone], cell [phone] Prognosis: This patient was initially admitted with generalized symptoms of nausea, weakness but overall not feeling well. During hospital course has had worsening sepsis, multiorgan failure. He has recent diagnoses of bladder cancer. Given advanced age, Multiorgan issues, high risk for ongoing complications and setbacks. Code Status: Full Code Plan: Patient was extubated 01/28/18, will follow to determine patient's ability to make his own medical decisions in the coming days. Per [place] statutes his would be appropriate legal proxy. Pt s/p medical extubation, however with some aphasia, lethargy, not able to fully make own decisions. , supported by family making decisions. Goals: Extensive discussion with family 02/05/18. Goals are to transition home with hospice for support. Patient verbalized to the family "I just want to go home to ". Hospice to try to get pt home today if all needed arrangements can be made. CODE STATUS:full code - will need to readdress upon hospice enrollment, family has indicated pt would NOT want to return to hospital for intubation, other aggressive tx. SYMPTOMS: --Dyspnea Extubated 01/28/18. s/p CVA,now on NC 2L. Ongoing risk for aspiration, pneumonia 2/2 to immobile, poor nutritional status. On modified diet. Hx COPD. Most recent CXR stable/no acute process. --Dysphagia- potential r/t CVA ; 01/[address] evaluation recommended mech soft diet and nectar thick liquids. Dirt Supervisor has also recommended ENSURE pudding TID, family bringing some foods in from home, instructed all need to be thickened. -- malnutrition- poor appetite, poor intake since extubation, 0-25% of meals. Would be high risk for aspiration if feeding tube pursued. Pt denies n/v or GI complaints. not ideal candidate for megace 2/2 thromboembolic risk. --Encephalopathy-multifactorial, metabolic. prev. with Multiorgan failure, now stabilized. . High risk for future CVA. Slight improvement overall since ICU course, though not progressing with rehab. Family hopeful patient will continue to improve. As pt becomes more alert, may to be able to participate in goals of medical treatment. --Pain-+ sacral pain 2/2 breakdown, debilitated primarily bedbound. Other potential sources would include bedbound status, recent invasive procedures, including cystoscopy. indicates he has not had any c/o pain pre hospitalization. currently has Tylenol available. prev. on Gabapentin which is on hold. While pain control may help pt feel better and ideally participate more, concern that stronger pain medication w opiate will contribute to lethargy and decrease ability to participate in rehab efforts. -Depression/failing to thrive-multifactorial. Patient previously independent , working in the [employer] business. Prolonged hospitalization- Suffered significant CVA event. Prolonged ICU course. Flat affect, minimally verbal. lexapro has been resumed. Palliative care will continue to follow during hospital course as condition evolves, to assist patient/decision-maker with understanding of medical conditions, weighing benefits/burdens of treatment options, for clarification of goals of treatment. Additionally will assist with any symptoms of palliative concern Attestation Attestation: To help prompt me to consider important information that might be impacting today's encounter and assessment, information from prior notes written by myself or my colleagues may have been "brought forward" into today's note. My signature on this note, however, is an attestation that I personally performed the exam, history, and/or decision-making noted today, and, unless otherwise indicated, the interactions with patient, family, and staff as well as the review of records all occurred today. I also attest that the listed assessment and stated plan reflect my best clinical judgment today based on the combination of historical information, prior notes, and today's exam/ interactions. When time spent is documented, it refers only to time spent today by the signer, or if indicated, combined time spent today by collaborating physician/nurse practitioner.
--- NOTE | 2018-02-06 12:29 | P.DS ---
DS: Providers Date of admission: 01/16/18 06:28 Primary care physician: Pop Escobar MD Consults: 01/16/18 08:46 Consult to Urology Routine Consulting Provider: Rony Lyn Preferred Meter Readers Supervisor:: Paul Feliciano Patient known to:: Paul Feliciano Reason for Consultation: Recent meatal dilation, laser ablation of distal ureteral masses, right stone extraction and stent placement. Now with dehydration and possible UTI Notified:: Office Spoke with:: bryan Date Notified:: 01/16/18 Time Notified:: 09:05 Ordering Provider: FARTUN 01/16/18 15:37 Consult to Cvt Tech Stat Consulting Provider: Patricio Moseley For STAT consult, spoke directly to:: Dr rupesh pinzon Reason for Consultation: Hypotension Case discussed with dr Rupesh pinzon Notified:: Service Spoke with:: Emmanuelle Date Notified:: 01/16/18 Time Notified:: 15:51 Ordering Provider: FARTUN 01/17/18 07:57 Consult to Nephrology Routine Consulting Provider: Ender Duarte Does the patient have a Cargo Operations Agent who follows them?: No Preferred Nephrology Meter Readers Supervisor:: Director Of Vocational Guidance Physician Reason for Consultation: Renal failure, hyperkalemia Notified:: Service Spoke with:: rosio Date Notified:: 01/17/18 Time Notified:: 08:17 Ordering Provider: CHINO 01/18/18 07:07 Consult to Infectious Diseases Routine Consulting Provider: Cristal Foster Reason for Consultation: Pseudomonas bactermia, sepsis, s/p urological procedures Notified:: Service Spoke with:: GAMAL Date Notified:: 01/18/18 Time Notified:: 07:51 Ordering Provider: CHINO 01/20/18 12:37 Consult to Palliative Care Routine Consulting Provider: Arturo Banks Reason for Consultation: defines goals of care Notified:: Service Spoke with:: Alfonzo Date Notified:: 01/20/18 Time Notified:: 12:42 Ordering Provider: RUDY 01/21/18 12:21 Consult to Neurology Routine Consulting Provider: Den Love Preferred Meter Readers Supervisor:: Den Love Reason for Consultation: AMS, Septic shock, BECK, now with VDRF Notified:: Service Spoke with:: ION Date Notified:: 01/21/18 Time Notified:: 12:29 Ordering Provider: RUDY 01/22/18 10:50 HUB Only Consult Order Routine Consulting Provider: [facility] Reason for Consultation: ltach referral 01/23/18 08:10 Consult to Neurosurgery Routine Consulting Provider: Juan C Doshi Reason for Consultation: ? abcess brain vs cva Notified:: Physician Spoke with:: Date Notified:: 01/23/18 Time Notified:: 08:27 Ordering Provider: JOSÉ 01/28/18 13:36 Consult to Hospitalist Routine Consulting Provider: Sony Atkinson Reason for Consultation: [place] of care in a.m. 01/29. Admission with CVA. Notified:: Service Spoke with:: LITTLE Date Notified:: 01/28/18 Time Notified:: 13:52 Comments:: Ordering Provider: CHRISTINE Brief History from admission: Mr. Cheung is a pleasant 82 y/o male with bladder cancer who recently underwent meatal dilation/bilateral retrograde pyelograms/bladder biopsy with fulguration/bilateral ureteroscopy with laser ablation of distal ureteral masses/right ureteroscopic stone extraction and bilateral ureteral stent placement with Dr. Feliciano on 01/05/18. Pts reports that he had his Talbot catheter removed at Dr. Feliciano's office yesterday. She states that the pt has not been eating or drinking well over the last few weeks and has been somewhat weaker than normal. Then yesterday after the Talbot was removed the pt had difficulty urinating and last night started becoming more nauseated and started vomiting during the night last night. Pt denies any fevers or chills. He appears uncomfortable in the bed and reports some mid to lower abdominal pain. He states that he needs to pee but only small amount of urine has been coming out since the catheter was removed. Denies any back pain. He states that he has not been having regular bowel movements more recently but felt that this was due to his appetite being poor and not eating as much as he used to. Denies any constipation or diarrhea. He denies any chest pain, SOB, palpitations, dizziness or weakness. His labs in the ED revealed a WBC count of 14, Cr 1.78, BUN 30, GFR 37. This seems to be worse than his baseline renal function when outpt labs were reviewed. 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 Past Medical Hx: AAA Thoracic aortic aneurysm Anxiety Bronchiectasis/Restrictive lung disease/COPD, chronically on 2L of supplemental O2 CHF Hyperlipidemia HTN Malignant neoplasm of the bladder JAVIER Osteoarthritis Hx of vertigo Hx of SSS s/p PPM Hx of skin cancer 2D echo (07/24/17): - LV mildly dilated - Mild concentric LVH - Estimated EF 45-50% - Abnormal left ventricular diastolic function is observed - LA is mildly dilated - Mild to moderate aortic regurg - Mild mitral regurg - Mild tricuspid regurg - RVSP is 42mmHg Past Surgical Hx: Multiple cystoscopies - Most recent, on 01/05/18, meatal dilation, bilateral retrograde pyelograms , bladder biopsy with fulguration, bilateral ureteroscopy with laser ablation of distal ureteral masses, right ureteroscopic stone extraction and bilateral ureteral stent placement with Dr. Feliciano. - Cystoscopy and transurethral resection of bladder tumors measuring 2 cm and 6 cm respectively on 08/25/[address] Feliciano. PATHOLOGY: NON-INVASIVE LOW GRADE PAPILLARY UROTHELIAL CARCINOMA Laminectomy PPM placement Colonoscopy Skin cancer removal DS: Diagnosis Discharge Diagnosis (1) Acute kidney injury: Status: Acute (2) Sepsis: Status: Acute (3) Acute UTI: Status: Acute (4) Hypernatremia: Status: Acute DS: Summary Plan - Pt is an 82 y/o male with bladder cancer who recently underwent meatal dilation/bilateral retrograde pyelograms/bladder biopsy with fulguration/ bilateral ureteroscopy with laser ablation of distal ureteral masses/right ureteroscopic stone extraction and bilateral ureteral stent placement with Dr. Feliciano on 01/05/18. . She states that the pt has not been eating or drinking well over the last few weeks and has been somewhat weaker than normal. Then yesterday after the Talbot was removed the pt had difficulty urinating and last night started becoming more nauseated and started vomiting during the night last night. Pts reports that he had similar issues in August 2017 after a previous urological procedure after Talbot removal but was not this bad and was treated for a UTI at that time. 1. Left parieto-occipital hemorrhagic infarct -01/22, CT brain-abnormality left parietal occipital region. 01/23 large 6.1 x 3.9 cm left occipital abnormality, probable hemorrhagic infarct - comgmt with Neurology -Neurosurgery consulted for possible hemorrhagic infarct left parieto- occipital. Recommended repeat CT brain in 2 weeks with contrast if able cannot rule out mass lesion or abscess into continue conservative management. - Altered mental status/encephalopathy secondary to metabolic encephalopathy and severe sepsis and acute stroke - neurology repeated the CT 01/31. left occipital cva with sah within noted. - Case d/w Neurosurgery (02/02/18), Dr. Doshi. - Agreed with small SAH. - ageed with ASA 81mg daily - recommended repeat CT brain in 3-4 weeks. If SAH remains stable on repeat CT brain, then start novel anticoagulant. - BP stable - PT - hypernatremia resolved - pt remains quite weak - met with multiple family members at the bedside (02/04) including pt's , son, grandson, and [id number] - Pt intermittently drifting asleep during meeting. - Pt originally admitted d/t urosepsis - Appreciate input from Palliative Medicine Shivani Souza. - Again met with family (02/05) - Pt/family elects for Home Hospice - see discharge orders Non-sustained SVT, asymptomatic - continue coreg - 2D echo 07/24/17: Estimated EF 45-50%, abnormal LV diastolic function, mild to moderate AR - observe Bronchiectasis/Restrictive lung disease/COPD, chronically on 2L of supplemental O2 Obstructive sleep apnea on CPAP at night Acute hypoxemic respiratory failure Extubated 01/27. Currently on room air. -Albuterol/ipratropium aerosols every 4 hours with albuterol aerosols every 2 hours as needed -Incentive spirometry while awake CHF/systolic Hyperlipidemia HTN Atrial fibrillation currently rate control AAA/Thoracic aortic aneurysm -Developed A. fib with RVR 01/17/2018. Diltiazem 30 mg 4 times daily initiated.. This is discontinued 01/27 carvedilol 12.5 twice daily. resumed amlodipine at 5 mg daily -Currently rate controlled but remains in A. fib, off IV heparin due to hemorrhagic infarct -Diuresis per nephrology. -2D echo 07/24/17: Estimated EF 45-50%, abnormal LV diastolic function, mild to moderate AR -Currently on atorvastatin 10 mg daily for hyperlipidemia History meatal stenosis BPH Status post recent bilateral ureteroscopy suspicious for recurrent urothelial cancer involving both ureteral orifices. Status post recent right ureteroscopy with laser lithotripsy of distal ureteral calculus Status post bilateral ureteral stent placement Acute kidney injury likely secondary to hypoperfusion/hypotension Noninvasive low-grade papillary urethrothelial carcinoma -Monitor renal function closely. Talbot catheter. Patient's previous indwelling catheter was removed by Dr. Feliciano 01/16/18 -Urology Dr. Feliciano is following -Nephrology Dr. Duarte following for for worsening oliguric renal failure creatinine Monitor for need for hemodialysis -CT of abdomen pelvis on admission showed bilateral ureteral stents are in place and there is mild distention of the collecting systems bilaterally. Continue tamsulosin 0.4 mg daily Time Spent with Patient Total time spent providing and/or coordinating discharge services: Quality: VTE Deep Vein Thrombosis/Pulmonary Embolism Present on Admission: No Exam Narrative Exam Narrative: GENERAL: NAD CARDIOVASCULAR: Regular rate and rhythm without murmurs, gallops, or rubs. RESPIRATORY: Clear to auscultation. Breath sounds equal bilaterally. No wheezes , rales, or rhonchi. GASTROINTESTINAL: Abdomen soft, non-tender, nondistended. Normal active bowel sounds MUSCULOSKELETAL: Extremities without clubbing, cyanosis, or edema. NEURO: Alert & Oriented x4 to person, place, time, situation. Moves all ext x4 Results Labs on day of discharge: Labs from last 24 hours 02/05/18 17:06 POC Glucose 112 H Impressions ITS Impressions Abdomen/Pelvis CT 01/16/18 04:21 CONCLUSION: 1. Bilateral ureteral stents are in place and there is mild distention of the collecting systems bilaterally. Both kidneys enhance heterogeneously. 2. 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 Carotid Doppler Study 01/23/18 00:00 CONCLUSION: 1. Right Internal Carotid Artery: Findings indicate <50% stenosis. 2. Left Internal Carotid Artery: Findings indicate 50-69% stenosis. This is likely in the higher aspect of this range. Chest X-Ray 01/28/18 06:00 CONCLUSION: Endotracheal tube and nasogastric tube no longer seen. Lung volumes are low and there is chronic cardiac silhouette enlargement. No acute cardiopulmonary disease identified. Head CT 01/31/18 00:00 CONCLUSION: 1. Interval development of what appears to be subarachnoid hemorrhage within left occipital lobe infarction without any significant mass effect. Discharge Plan Discharge Disposition Patient Disposition: Discharge to SNF Discharge Condition Condition: Stable Discharge Order Discharge Orders: Discharge Order (Routine); Ordered 02/06/18 Ordered By: Kolby Thomson Discharge Details Anticipated Discharge Date: 02/06/18 Physicians Team ED Provider: Ghada Corral Primary Care Provider: Pop Escobar Attending Provider: Kolby Thomson Other Providers: Rony Lyn ; Patricio Moseley ; Ender Duarte ; Cristal Foster ; Arturo Banks ; Den Love ; [facility] ; Juan C Doshi ; Sony Atkinson Rxs /Orders / Referrals /Forms Prescriptions: New carvedilol [Coreg] 12.5 mg Tablet 12.5 mg PO BID 30 Days Qty: 60 RF: 0 nifedipine 30 mg Tablet Extended Release 24hr 30 mg PO BID 30 Days Qty: 60 RF: 0 Continue atorvastatin 10 mg Tablet 10 mg PO DAILY RF: 0 isosorbide mononitrate 30 mg Tablet Extended Release 24 Hr 30 mg PO DAILY RF: 0 Oxygen 2 l Inhalation HS RF: 0 tamsulosin 0.4 mg Capsule,Extended Release 24hr 0.4 mg PO HS RF: 0 gabapentin 300 mg Capsule 300 mg PO BID RF: 0 escitalopram oxalate 10 mg Tablet 10 mg PO DAILY RF: 0 albuterol sulfate 5 mg/mL Solution For Nebulization 2.5 mg INHALATION QID PRN (Reason: Shortness Of Breath) RF: 0 Discontinued amlodipine 10 mg Tablet 10 mg PO DAILY RF: 0 clonidine-chlorthalidone 0.1-15 mg Tablet 1 tab PO BID RF: 0 potassium chloride 10 mEq Capsule, Extended Release 10 meq PO DAILY RF: 0 carvedilol 6.25 mg Tablet 6.25 mg PO BID RF: 0 naproxen 500 mg Tablet 500 mg PO BID PRN (Reason: Pain) RF: 0 furosemide 20 mg Tablet 20 mg PO DAILY RF: 0 Referrals: Pop Escobar MD [Primary Care Provider] - See Instructions Den Love MD [Physician] - See Instructions (Follow uo in 1-2 weeks) Status ED Status: Left Department
[2018-02-06 12:41] VITALS: PULSE 60
[2018-02-06] MEDS ORDERED: LORazepam 0.5 MG Tablet PO ONE (14:06)
[2018-02-06 16:55] VITALS: BP 142/65; TEMP 98.7; O2SAT 99
== END 2018-02-06 16:50 | disposition hospice, home (50) ==
LOC: NEPE 03:40 → NEDA 06:28 → N04 08:52 → HIMC 15:30 → N04 01-29 15:12
PROVIDERS: ADMIT Hospitalist; ATTEND Hospitalist
DX: J98.4 Other disorders of lung; I13.0 Hypertensive heart and chronic kidney disease with heart failure and stage 1 through stage 4 chronic kidney disease, or unspecified chronic kidney disease; I63.9 Cerebral infarction, unspecified; E78.00 Pure hypercholesterolemia, unspecified; Z79.899 Other long term (current) drug therapy; R74.8 Abnormal levels of other serum enzymes; Z95.0 Presence of cardiac pacemaker; N39.0 Urinary tract infection, site not specified; E87.0 Hyperosmolality and hypernatremia; I08.3 Combined rheumatic disorders of mitral, aortic and tricuspid valves; I48.1 Persistent atrial fibrillation; I47.1 Supraventricular tachycardia; D64.9 Anemia, unspecified; G93.41 Metabolic encephalopathy; J96.01 Acute respiratory failure with hypoxia; N35.911 Unspecified urethral stricture, male, meatal; E87.2 Acidosis; N17.0 Acute kidney failure with tubular necrosis; J43.9 Emphysema, unspecified; N18.9 Chronic kidney disease, unspecified; E87.1 Hypo-osmolality and hyponatremia; E87.5 Hyperkalemia; Z87.442 Personal history of urinary calculi; I50.9 Heart failure, unspecified; Z98.42 Cataract extraction status, left eye; I60.9 Nontraumatic subarachnoid hemorrhage, unspecified; Z51.5 Encounter for palliative care; M19.90 Unspecified osteoarthritis, unspecified site; E83.41 Hypermagnesemia; F41.9 Anxiety disorder, unspecified; G47.33 Obstructive sleep apnea (adult) (pediatric); R34 Anuria and oliguria; Z85.51 Personal history of malignant neoplasm of bladder; A41.52 Sepsis due to Pseudomonas; E86.0 Dehydration; R65.21 Severe sepsis with septic shock; E87.6 Hypokalemia; Z98.41 Cataract extraction status, right eye; Z87.891 Personal history of nicotine dependence; J96.92 Respiratory failure, unspecified with hypercapnia; E78.5 Hyperlipidemia, unspecified; N40.0 Benign prostatic hyperplasia without lower urinary tract symptoms; F32.9 Major depressive disorder, single episode, unspecified; C68.0 Malignant neoplasm of urethra; Z85.828 Personal history of other malignant neoplasm of skin; I71.4 Abdominal aortic aneurysm, without rupture